=== PATIENT | female | born 1955 | race Caucasian/White ===

== ENCOUNTER 2016-08-22 03:14 | Emergency (ER) | payer OTHER ==
[~2016-08-22 03:14] MED LIST: AFRI0.052; ALDA25TA2 PO; ALEV220C2 PO; AMIT50TA PO; ASPI1TAB PO; BENZ100C5 PO; CALC1TAB17 PO; CALCTAB41 PO; CALCTAB68 PO; CARV3.12 PO; DEPA500T2 PO; DOXY100C PO; DRIS50002 PO; FERR325T PO; FURO20TA2 PO; FURO40TA2 PO; INSUH10VL SC; INSULANT SC; IRON18TA PO; K-TA1TAB PO; LASI20TA PO; LEXA1TAB2 PO; LIDO1OIN2 TOP; MECL-68 PO; NADO20TA PO; NADO40TA PO; NEXI40CA PO; OXYC-517 PO; PERC5TAB6 PO; PERCOCET PO; POTA10CA PO; SPIR100T PO; SPIR25TA2 PO; TRAZ50TA4 PO; VANC250C2 PO; ZONE100C4 PO; [UNRECOGNIZED DRUG - CODE] AU
[2016-08-22 04:04] LABS: BASO % 0.9 % (0.0-1.0); EOS # 0.1 K/mm3 (0.0-0.50); EOS % 3.4 % (0.0-3.0); LARGE UNSTAINED CELL # 0.1 K/mm3 (0.0-0.4); LYMPH # 0.9 K/mm3 (1.5-4.5); LYMPH % 27.5 % (24.0-44.0); MEAN CORPUSCULAR HEMOGLOBIN 31.9 pg (27.0-33.0); MEAN CORPUSCULAR HGB CONC 33.8 g/dl (32.0-36.5); MEAN CORPUSCULAR VOLUME 94.5 fl (80.0-96.0); MONO # 0.2 K/mm3 (0.0-0.8); NEUTROPHILS # 1.8 K/mm3 (1.8-7.7); NEUTROPHILS % 58.2 % (36.0-66.0); RED CELL DISTRIBUTION WIDTH 14.2 % (11.5-14.5); WHITE BLOOD COUNT 3.1 K/mm3 (4.0-10.0)
[2016-08-22 04:17] LABS: ANION GAP 12 MEQ/L (8-16); BLOOD UREA NITROGEN 8 MG/DL (7-18); CALCIUM LEVEL 8.3 MG/DL (8.8-10.2); CARBON DIOXIDE LEVEL 29 MEQ/L (21-32); CHLORIDE LEVEL 105 MEQ/L (98-107); CREATININE FOR GFR 0.94 MG/DL (0.55-1.02); GLOMERULAR FILTRATION RATE > 60.0 (>45); GLUCOSE, FASTING 244 MG/DL (80-110); POTASSIUM SERUM 3.4 MEQ/L (3.5-5.1); SODIUM LEVEL 146 MEQ/L (136-145)
[2016-08-22 04:23] LABS: VENOUS O2 SATURATION 97.2 % (60.0-80.0); VENOUS PARTIAL PRESSURE O2 87.7 mmHg (30.0-50.0); VENOUS STANDARD HCO3 29.9 MEQ/L; VENOUS TOTAL CO2 30.2 MEQ/L (24.0-28.0)
[2016-08-22 04:38] LABS: PLATELET COUNT, AUTOMATED 61 k/mm3 (150-450)
[2016-08-22 04:53] LABS: INR 1.2
[2016-08-22 05:01] LABS: ALBUMIN 3.2 GM/DL (3.2-5.2); ALBUMIN/GLOBULIN RATIO 0.78 (1.00-1.93); ALKALINE PHOSPHATASE 209 U/L (45-117); ALT/SGPT 31 U/L (12-78); AST/SGOT 42 U/L (15-37); BILIRUBIN,DIRECT 0.1 MG/DL (0.0-0.2); BILIRUBIN,TOTAL 0.5 MG/DL (0.2-1.0); TOTAL PROTEIN 7.3 GM/DL (6.4-8.2)
[2016-08-22] MEDS ORDERED: ISOVUE-370 76% 100ML VIAL (Q9967) As Ordered ONE (05:04)
--- NOTE | 2016-08-22 06:10 | REPUSA ---
CLINICAL HISTORY: Dyspnea, exclude PE. TECHNIQUE: Multiple incremental axial, coronal and oblique images are obtained from the thoracic inle t to the upper abdomen. Intravenous contrast material was administered as per pulmonary embolism prot ocol. COMMENTS: Moderate size right pleural effusion. Passive atelectatic airspace disease of the right lower lobe. M ild cardiomegaly. There is excellent opacification of pulmonary arterial system without evidence for pulmonary embolism . Aorta is of normal caliber without evidence for dissection or aneurysm. There is no evidence of hilar or mediastinal lymphadenopathy. Images of the upper abdomen demonstrate no evidence of adrenal mass. The bony structures are free of lytic or blastic lesions. IMPRESSION: No evidence for pulmonary embolism. Moderate right pleural effusion. Passive atelectatic airspace disease of the right lower lobe. Mild mediastinal shift to the left side. Thank you for your kind referral of this patient.
--- NOTE | 2016-08-22 06:30 | REPUSA ---
CLINICAL HISTORY: Abdominal pain. TECHNIQUE: Multiple axial, sagittal and coronal CT images were obtained through the abdomen and pelvi s after administration of intravenous contrast material. COMMENTS: There is diffuse irregular hepatic contour. Mild splenomegaly. There is no intra or extrahepatic biliary ductal dilatation. The gallbladder contains multiple gallstones. The pancreas is of normal contour and attenuation chayo cteristics. There is no evidence of adrenal mass. Both kidneys demonstrate prompt and equal nephrograms. The kidneys are normal in size, shape and conf iguration. There is no evidence of renal or ureteral mass. No renal or ureteral calculi are identifie d. There is no hydroureter or hydronephrosis. No evidence for appendicitis. No evidence for small or large bowel obstruction. Diffuse thickening of the stomach and the duodenum. Mildly fluid-filled small bowels. There is no evidence of intrinsic or extrinsic bladder mass. Moderate large fecal stasis. Uncomplicat ed clonic diverticulosis. Central mesenteric panniculitis. The bony structures are free of lytic or blastic lesions. Multilevel degenerative changes are seen in volving the thoracolumbar spine. Scattered calcifications are seen involving the aorta and major bran ches compatible with atherosclerosis. IMPRESSION: Parenchymal liver disease. Portal hypertension. Ascites. Central mesenteric panniculitis. Gastroduodenitis. Constipation. Cholelithiasis. Thickened gallbladder. This can be secondary to inflammatory pathology, ascites or parenchymal liver disease. Mildly thickened bladder. Thank you for your kind referral of this patient.
[2016-08-22] MEDS ORDERED: AMMONIA AROMATIC INHALANT (FLOOR STOCK) As Ordered ONE (07:28)
--- NOTE | 2016-08-22 08:06 | REP ---
AP portable sitting chest radiograph 08/22/2016 Indication: Shortness of breath Comparison: AP supine chest with bilateral rib series 07/08/2016, CTA chest also performed 08/22/2016 Findings: The cardiomediastinal silhouette is within normal limits. There is a [id number] right pleural effusion with right basilar parenchymal disease compatible with compressive atelectasis. Mild atelectatic changes are seen in the left base. The bones and soft tissues are grossly normal. Impression: Moderate to large right pleural effusion with moderate right lower lobe compressive atelectasis. Mild left basilar atelectatic changes . Signed by Tena Sosa MD 08/22/2016 07:57 A
--- NOTE | 2016-08-22 08:25 | EDDOCDS ---
Nurse's Notes [facility] Name: Olga Palma Age: 60 yrs Sex: Female : 1955 Arrival Date: 08/22/2016 Time: 03:14 Bed 3 Private MD: Suzy Cesar M. Diagnosis: Pleural effusion in other conditions classified elsewhere;Ascites Presentation: 08/22 03:18 Presenting complaint: EMS states: pt feeling SOB since noon 08/21/16. hx of pleural mlc effusion. EMS states pt was having "syncopal" episodes x2. SPO2 was 94% on RA. FS was 261. Adult Sepsis Screening: The patient does not have new or worsening altered mentation. Patient's respiratory rate is less than 22. Systolic blood pressure is greater than 100. Patient has a qSOFA score of 0- Negative Sepsis Screen. Status: Patient is not a equipment services associate or dependent. Transition of care: patient was not received from another setting of care. 03:18 Acuity: CIARA Level 3 [facility] 03:18 Method Of Arrival: Ambulance [facility] 03:18 Suicide/Homicide risk assessment- the patient denies having any suicidal and/or mlc homicidal ideations and does not present with any other emotional, behavioral or mental health complaints. Triage Assessment: 03:30 General: Appears in no apparent distress, comfortable, pt joking with staff, does not mlc appear to be distressed . Behavior is cooperative. Pain: Location: xyphoid area and mid-sternal area Pain At worst was 5 out of 10 on a pain scale. HIV screening NA for this visit Offered previously. The patient is triaged at the bedside. See Assessment in Nurses Notes section of ED record. Neurological: Level of Consciousness is awake, alert, obeys commands, Oriented to person, place, time. Cardiovascular: Rhythm is regular. Respiratory: Onset: The symptoms/episode began/occurred yesterday, Airway is patent Respiratory effort is even, unlabored, Respiratory pattern is regular. Derm: Skin is normal. Historical: - Allergies: Atacand (chest pain); candesartan; Hydrochlorothiazide (chest pain); - Home Meds: 1. aspirin 81 mg Oral chew 1 tab once daily 2. Calcium+D 500 mg(1,250mg) -200 unit oral tab twice a day 3. Lexapro 20 mg Oral tab 1 tab once daily 4. Novolog 100 unit/mL Sub-Q soln sliding scale 5. Lantus 100 unit/mL Sub-Q soln 64 unit twice a day 6. Iron CR 90mg Oral twice a day 7. spironolactone 25 mg Oral tab 1 tab 2 times per day 8. trazodone 50 mg Oral tab 1 tab nightly 9. Nexium 40 mg Oral cpDR 1 cap once daily 10. meclizine 25 mg Oral tab 1 tab 2 times per day 11. furosemide 40 mg Oral tab 1 tab 2 times per day - PMHx: Anxiety; Ascites; Cirrhosis; Diabetes - IDDM: controlled; GERD; Hypercholesterolemia; Hypertension; Pancreatitis; Vertigo; - PSHx: Hysterectomy; D & C; right knee surgery; left shoulder surgery; left elbow surgery; Hernia repair; Appendectomy; right shoulder; - Social history: Smoking status: Patient states was never smoker of tobacco. No barriers to communication noted, The patient speaks fluent Somali. - Family history: Not pertinent, No immediate family members are acutely ill. - : The pt / caregiver states he / she is not on anticoagulants. Home medication list is obtained from the patient, [employer] import data. - Exposure Risk Screening:: None identified. Screenin:32 Screening information is obtained from the patient. Fall risk: At risk due to SOB. mlc Assistance ADL's: requires no assistance with activities of daily living. Abuse/DV Screen: The patient / caregiver reports he/she is: not in a situation that causes fear, pain or injury. Nutritional screening: On diabetic diet. Advance Directives: Currently, there is no health care proxy. There is no active DNR order. There is no living will. There is no Power of Anthropology Lecturer. home support is adequate. Assessment: 03:50 General: Appears in no apparent distress, comfortable, Behavior is cooperative. mlc Neurological: Level of Consciousness is awake, alert, Oriented to person, place, time. Cardiovascular: Capillary refill < 3 seconds Heart tones S1 S2 present Rhythm is regular. Cardiovascular: Chest pain is located in substernal area radiates Does not radiate. is aggravated by breathing. Respiratory: Airway is patent Respiratory effort is even, unlabored, Respiratory pattern is regular, Breath sounds with crackles in right posterior lower lobe. GI: Abdomen is distended, Bowel sounds present X 4 quads. firm x4 quad. Derm: Skin is normal. 05:22 Reassessment: Patient appears in no apparent distress at this time. pt taken to and mlc returned from CT, tolerated well. pt SOB after moving from CT table. pt able to breath better after resting, SPO2 96% on 2L NC. 06:30 General: Appears in no apparent distress, comfortable. General: pt resting comfortably mlc on stretcher, awaiting Dr. Tom. Neurological: Level of Consciousness is awake, alert, Oriented to person, place, time. Respiratory: Airway is patent Respiratory effort is even, unlabored, Respiratory pattern is regular. 07:00 General: Dr. Tom at bedside. Pt sitting on side of bed with feet dangling, pt leaning mlc onto bedside table. . 07:07 General: Lidocaine administered by Dr. Tom, pt reports feeling like the room is mlc spinning, pt leaning to one side. pt closed eyes and leaning to left side. Dr. Tom unable to perform procedure. Vitals stable, resp easy/unlabored, SPO2 maintained. . 07:10 General: Pt aroused to minimal tactile stimulation. Pt resting on stretcher at this mlc time, vitals stable. Resp easy/unlabored. . 07:43 General: Appears presently resting quietly. no observed resp distress. conversing [facility] lengthy sentences without resp interruption. awaiting transportation from [facility].. 08:22 General: Appears continues to present without resp distress. [facility] Vital Signs: 03:28 BP 146 / 70; Pulse 90; Resp 20; Temp 97.4(O); Pulse Ox 95% on R/A; Weight 110.22 kg jmv (R); Height 5 ft. 1 in. (154.94 cm) (R); Pain 4/10; 03:36 Pulse 90 MON; Pulse Ox 57% ; mlc 03:36 BP 122 / 56 (auto/); mlc 03:51 Pulse 84 MON; Pulse Ox 94% ; mlc 03:51 BP 113 / 57 (auto/); mlc 04:06 Pulse 80 MON; Pulse Ox 94% ; mlc 04:06 BP 119 / 56 (auto/); mlc 04:21 BP 127 / 62 (auto/); mlc 04:21 Pulse 80 MON; mlc 04:36 BP 137 / 57 (auto/); mlc 04:36 Pulse 82 MON; Pulse Ox 96% ; mlc 04:51 Pulse 78 MON; Pulse Ox 96% ; mlc 04:51 BP 120 / 60 (auto/); mlc 05:06 BP 120 / 57 (auto/); mlc 05:06 Pulse 80 MON; mlc 05:21 BP 115 / 53 (auto/); mlc 05:21 Pulse 76 MON; Pulse Ox 99% ; mlc 05:36 BP 114 / 54 (auto/); mlc 05:36 Pulse 78 MON; Pulse Ox 97% ; 05:51 BP 113 / 58 (auto/); aug 18:51 Pulse 80 MON; Pulse Ox 96% ; aug 06:07 BP 102 / 58 (auto/); mlc 06:08 Temp 97.7(O); mlc 06:10 Pulse 79 MON; Pulse Ox 96% ; mlc 06:15 BP 106 / 53 (auto/); mlc 06:15 Pulse 79 MON; Pulse Ox 96% ; mlc 06:22 Pulse 79 MON; Pulse Ox 96% ; mlc 06:30 Pulse 81 MON; Pulse Ox 96% ; mlc 06:30 BP 110 / 56 (auto/); mlc 06:45 Pulse 80 MON; Pulse Ox 95% ; mlc 06:45 BP 127 / 56 (auto/); mlc 07:00 Pulse 82 MON; Pulse Ox 96% ; mlc 07:00 BP 123 / 58 (auto/); mlc 07:08 Pulse 83 MON; Pulse Ox 96% ; mlc 07:08 BP 113 / 55 (auto/); mlc 07:13 Pulse 74 MON; mlc 07:13 BP 101 / 57 (auto/); mlc 07:15 BP 111 / 77 (auto/); mlc 07:15 Pulse 71 MON; Pulse Ox 94% ; mlc 08:22 BP 123 / 55; Pulse 77; Resp 18; Temp 97.3; Pulse Ox 93% on R/A; k 03:28 Body Mass Index 45.91 (110.22 kg, 154.94 cm) [facility] Vitals: 03:30 Log In Time N/A - ambulance arrival. [facility] ED Course: 03:15 Patient visited by Eleno Wyatt, Police Artist. ml3 03:15 Suzy Cesar is Private Physician. ml3 03:15 Sadaf Butcher,LIDYA is Primary Nurse. ml3 03:15 Patient moved to Waiting ml3 03:15 Patient moved to 10 ml3 03:23 Triage Initiated mlc 03:28 Pt greeted and oriented to ED. Patient advised of names of staff involved in care, jmmarian location of call constantino, wait times and NPO status. Patient has correct armband on for positive identification. Placed in gown. Bed in low position. Call light in reach. Side rails up X2. cardiac monitor technician on. Pulse ox on. NIBP on. 03:29 Patient visited by Darius Cates PCA. jmv 03:36 The patient / caregiver is instructed regarding the plan of care and ED course. mlc 03:37 Claudio Carrillo DO is Attending Physician. mm11 03:37 Patient visited by Claudio Carrillo DO. mm11 03:50 Inserted saline lock: 20 gauge in left antecubital area and blood collected. The [facility] patient tolerated the procedure well. 03:53 Patient visited by Sadaf Butcher RN. mlc 03:56 Patient visited by Caludio Carrillo DO. mm11 04:06 Patient visited by Leona Santizo PCA. tip 04:06 EKG done. (by ED staff). Reviewed by Claudio Carrillo DO. tip 04:21 Venous Blood Gas (large pea green tube on ice) Sent. mlc 04:21 BLOOD CULTURES Sent. mlc 04:50 LIVER PROFILE Sent. mlc 05:00 Patient name changed from Olga\\S\\G\\S\\Palma\\S\\ to Olga\\S\\Ankita\\S\\Palma. EDMS 05:00 ON LICENSE OF [facility] Payment Agreement was scanned into [employer] and attached to record. slh 05:07 Patient visited by Leona Santizo PCA. tip 05:24 Patient visited by Sadaf Butcher RN. mlc 06:02 Patient visited by Claudio Carrillo DO. mm11 06:04 Patient moved to 3 ml3 06:29 CT Chest Angio R/O PE Returned. EDMS 06:30 No procedures done that require assistance. mlc 06:43 Patient visited by Sadaf Butcher RN. mlc 06:51 CT ABD & PELVIS: IV Contrast Only Returned. EDMS 07:14 Suzy Cesar is Referral Physician. mm11 07:23 Primary Nurse role handed off by Sadaf Butcher RN deg 07:44 Patient visited by Sy Mix RN. jmk 08:15 Chest, 1 View Returned. EDMS 08:22 Discontinued lock intact, bleeding controlled, pressure dressing applied, No jmk redness/swelling at site. Order Results: Lab Order: B-Type Natiuretic Peptide; SPEC'M 08/22/16 03:45 Test: BRAIN NATRIURETIC PEPTIDE; Value: 14.0; Range: <100; Units: PG/ML; Status: F Lab Order: Basic Metabolic Profile; SPEC'M 08/22/16 03:45 Test: GLUCOSE, FASTING; Value: 244; Range: 80-110; Abnormal: Above high normal; Units: MG/DL; Status: F Test: BLOOD UREA NITROGEN; Value: 8; Range: 7-18; Units: MG/DL; Status: F Test: CREATININE FOR GFR; Value: 0.94; Range: 0.55-1.02; Units: MG/DL; Status: F Test: GLOMERULAR FILTRATION RATE; Value: > 60.0; Range: >45; Status: F Test: SODIUM LEVEL; Value: 146; Range: 136-145; Abnormal: Above high normal; Units: MEQ/L; Status: F Test: POTASSIUM SERUM; Value: 3.4; Range: 3.5-5.1; Abnormal: Below low normal; Units: MEQ/L; Status: F Test: CHLORIDE LEVEL; Value: 105; Range: 98-107; Units: MEQ/L; Status: F Test: CARBON DIOXIDE LEVEL; Value: 29; Range: 21-32; Units: MEQ/L; Status: F Test: ANION GAP; Value: 12; Range: 8-16; Units: MEQ/L; Status: F Test: CALCIUM LEVEL; Value: 8.3; Range: 8.8-10.2; Abnormal: Below low normal; Units: MG/DL; Status: F Test Note: ; Units are mL/min/1.73 m2 Chronic Kidney Disease Staging per NKF: Stage I & II GFR >=60 Normal to Mildly Decreased Stage III GFR 30-59 Moderately Decreased Stage IV GFR 15-29 Severely Decreased Stage V GFR <15 Very Little GFR Left ESRD GFR <15 on RETAIL SALES ASSISTANT Lab Order: CBC with Diff; SPEC'M 08/22/16 03:45 Test: WHITE BLOOD COUNT; Value: 3.1; Range: 4.0-10.0; Abnormal: Below low normal; Units: K/mm3; Status: F Test: RED BLOOD COUNT; Value: 4.42; Range: 4.00-5.40; Units: M/mm3; Status: F Test: HEMOGLOBIN; Value: 14.1; Range: 12.0-16.0; Units: g/dl; Status: F Test: HEMATOCRIT; Value: 41.7; Range: 36.0-47.0; Units: %; Status: F Test: MEAN CORPUSCULAR VOLUME; Value: 94.5; Range: 80.0-96.0; Units: fl; Status: F Test: MEAN CORPUSCULAR HEMOGLOBIN; Value: 31.9; Range: 27.0-33.0; Units: pg; Status: F Test: MEAN CORPUSCULAR HGB CONC; Value: 33.8; Range: 32.0-36.5; Units: g/dl; Status: F Test: RED CELL DISTRIBUTION WIDTH; Value: 14.2; Range: 11.5-14.5; Units: %; Status: F Test: PLATELET COUNT, AUTOMATED; Value: 61; Range: 150-450; Abnormal: Below low normal; Units: k/mm3; Status: F Test: NEUTROPHILS %; Value: 58.2; Range: 36.0-66.0; Units: %; Status: F Test: LYMPH %; Value: 27.5; Range: 24.0-44.0; Units: %; Status: F Test: MONO %; Value: 7.0; Range: 0.0-5.0; Abnormal: Above high normal; Units: %; Status: F Test: EOS %; Value: 3.4; Range: 0.0-3.0; Abnormal: Above high normal; Units: %; Status: F Test: BASO %; Value: 0.9; Range: 0.0-1.0; Units: %; Status: F Test: LARGE UNSTAINED CELL %; Value: 3.0; Range: 0.0-4.0; Units: %; Status: F Test: NEUTROPHILS #; Value: 1.8; Range: 1.8-7.7; Units: K/mm3; Status: F Test: LYMPH #; Value: 0.9; Range: 1.5-4.5; Abnormal: Below low normal; Units: K/mm3; Status: F Test: MONO #; Value: 0.2; Range: 0.0-0.8; Units: K/mm3; Status: F Test: EOS #; Value: 0.1; Range: 0.0-0.50; Units: K/mm3; Status: F Test: BASO #; Value: 0.0; Range: 0.0-0.2; Units: K/mm3; Status: F Test: LARGE UNSTAINED CELL #; Value: 0.1; Range: 0.0-0.4; Units: K/mm3; Status: F Lab Order: Cardiac Injury Profile; [facility]08/22/16 03:45 Test: CPK CREATINE PHOSPHOKINASE; Value: 81; Range: 26-192; Units: U/L; Status: F Test: CK-MB VALUE MASS; Value: 1.0; Range: 0.0-3.6; Units: NG/ML; Status: F Test: MB/CK RELATIVE INDEX; Value: 1.23; Range: < OR =4; Status: F Test Note: ; DIAGNOSIS CRITERIA MMB ng/ml Relative Index (RI) NON-AMI < or = 5 N/A RINCON ZONE > 5 < or = 4 AMI > 5 > 4 Lab Order: Troponin; 08/22/16 03:45 Test: TROPONIN I; Value: < 0.02; Range: < 0.10; Units: NG/ML; Status: F Test Note: ; Troponin I Reference Interval for [employer] LOCI: 99th Percentile= 0.00-0.045 ng/ml Risk Stratification: <= 0.10 ng/ml Decreased Risk for Adverse Clinical Events. 0.10-1.50 ng/ml Increased Risk for Adverse Clinical Events. Evaluation of additional criterion and/or repeat testing in 2-6 hours is suggested to rule out myocardial damage. >= 1.50 ng/ml Indicative of Myocardial Injury. Lab Order: Venous Blood Gas (large pea green tube on ice); [facility]08/22/16 04:09 Test: VENOUS PH; Value: 7.513; Range: 7.330-7.430; Abnormal: Above high normal; Units: UNITS; Status: F Test: VENOUS PARTIAL PRESSURE CO2; Value: 37.0; Range: 38.0-50.0; Abnormal: Below low normal; Units: mmHg; Status: F Test: VENOUS PARTIAL PRESSURE O2; Value: 87.7; Range: 30.0-50.0; Abnormal: Above high normal; Units: mmHg; Status: F Test: VENOUS TOTAL CO2; Value: 30.2; Range: 24.0-28.0; Abnormal: Above high normal; Units: MEQ/L; Status: F Test: VENOUS HCO3; Value: 29.1; Range: 23.0-27.0; Abnormal: Above high normal; Units: MEQ/L; Status: F Test: VENOUS BASE EXCESS; Value: 6.0; Range: -2.0-2.0; Abnormal: Above high normal; Status: F Test: VENOUS STANDARD HCO3; Value: 29.9; Units: MEQ/L; Status: F Test: VENOUS O2 SATURATION; Value: 97.2; Range: 60.0-80.0; Abnormal: Above high normal; Units: %; Status: F Lab Order: Pt & Aptt; [facility]08/22/16 03:44 Test: PROTHROMBIN TIME; Value: 15.3; Range: 12.3-14.5; Abnormal: Above high normal; Units: SECONDS; Status: F Test: INR; Value: 1.20; Status: F Test: PARTIAL THROMBOPLASTIN TIME; Value: 27.6; Range: 26.6-37.1; Units: SECONDS; Status: F Test Note: ; THERAPUTIC HUMAN INR VALUES INDICATIONS NORMAL RANGES PROPHYLAXIS/TREATMENT OF: VENOUS THROMBOSIS 2.0-3.0 PULMONARY EMBOLISM 2.0-3.0 PREVENTION OF SYSTEMIC EMBOLISM FROM: TISSUE HEART VALVES 2.0-3.0 ACUTE MYOCARDIAL INFARCTION 2.0-3.0 VALVULAR HEART DISEASE 2.0-3.0 ATRIAL FIBRILLATION 2.0-3.0 MECHANICAL VALVES(HIGH RISK) 2.5-3.5 RECURRENT MYOCARDIAL INFARCTION 2.5-3.5 Lab Order: LIVER PROFILE; SPEC'08/22/16 03:45 Test: AST/SGOT; Value: 42; Range: 15-37; Abnormal: Above high normal; Units: U/L; Status: F Test: ALT/SGPT; Value: 31; Range: 12-78; Units: U/L; Status: F Test: ALKALINE PHOSPHATASE; Value: 209; Range: 45-117; Abnormal: Above high normal; Units: U/L; Status: F Test: BILIRUBIN,TOTAL; Value: 0.5; Range: 0.2-1.0; Units: MG/DL; Status: F Test: BILIRUBIN,DIRECT; Value: 0.1; Range: 0.0-0.2; Units: MG/DL; Status: F Test: TOTAL PROTEIN; Value: 7.3; Range: 6.4-8.2; Units: GM/DL; Status: F Test: ALBUMIN; Value: 3.2; Range: 3.2-5.2; Units: GM/DL; Status: F Test: ALBUMIN/GLOBULIN RATIO; Value: 0.78; Range: 1.00-1.93; Abnormal: Below low normal; Status: F Radiology Order: Chest, 1 View Test: Chest, 1 View REASON FOR EXAMINATION: Shortness of Breath; AP portable sitting chest radiograph 08/22/2016; ; Indication: Shortness of breath; ; Comparison: AP supine chest with bilateral rib series 07/08/2016, CTA chest also; performed 08/22/2016; ; Findings: The cardiomediastinal silhouette is within normal limits. There is a; [id number] right pleural effusion with right basilar parenchymal disease; compatible with compressive atelectasis. Mild atelectatic changes are seen in; the left base. The bones and soft tissues are grossly normal.; ; Impression:; ; Moderate to large right pleural effusion with moderate right lower lobe; compressive atelectasis. Mild left basilar atelectatic changes .; ; ; ; ; ; ; Signed by; Tena Sosa MD 08/22/2016 07:57 A; Radiology Order: CT Chest Angio R/O PE Test: CT Chest Angio R/O PE REASON FOR EXAMINATION: Shortness of Breath; ; CLINICAL HISTORY: Dyspnea, exclude PE.; TECHNIQUE: Multiple incremental axial, coronal and oblique images are obtained from the thoracic inle; t to the upper abdomen. Intravenous contrast material was administered as per pulmonary embolism prot; ocol.; COMMENTS:; Moderate size right pleural effusion. Passive atelectatic airspace disease of the right lower lobe. M; ild cardiomegaly.; There is excellent opacification of pulmonary arterial system without evidence for pulmonary embolism; . Aorta is of normal caliber without evidence for dissection or aneurysm.; There is no evidence of hilar or mediastinal lymphadenopathy.; Images of the upper abdomen demonstrate no evidence of adrenal mass.; The bony structures are free of lytic or blastic lesions.; IMPRESSION:; No evidence for pulmonary embolism.; Moderate right pleural effusion.; Passive atelectatic airspace disease of the right lower lobe.; Mild mediastinal shift to the left side.; Thank you for your kind referral of this patient.; ; Radiology Order: CT ABD & PELVIS: IV Contrast Only Test: CT ABD & PELVIS: IV Contrast Only REASON FOR EXAMINATION: ASCITES; ; CLINICAL HISTORY: Abdominal pain.; TECHNIQUE: Multiple axial, sagittal and coronal CT images were obtained through the abdomen and pelvi; s after administration of intravenous contrast material.; COMMENTS:; There is diffuse irregular hepatic contour.; Mild splenomegaly. There is no intra or extrahepatic biliary ductal dilatation.; The gallbladder contains multiple gallstones. The pancreas is of normal contour and attenuation chayo; cteristics. There is no evidence of adrenal mass.; Both kidneys demonstrate prompt and equal nephrograms. The kidneys are normal in size, shape and conf; iguration. There is no evidence of renal or ureteral mass. No renal or ureteral calculi are identifie; d. There is no hydroureter or hydronephrosis.; No evidence for appendicitis. No evidence for small or large bowel obstruction. Diffuse thickening; of the stomach and the duodenum. Mildly fluid-filled small bowels.; There is no evidence of intrinsic or extrinsic bladder mass. Moderate large fecal stasis. Uncomplicat; ed clonic diverticulosis. Central mesenteric panniculitis.; The bony structures are free of lytic or blastic lesions. Multilevel degenerative changes are seen in; volving the thoracolumbar spine. Scattered calcifications are seen involving the aorta and major bran; ches compatible with atherosclerosis.; IMPRESSION:; Parenchymal liver disease.; Portal hypertension.; Ascites.; Central mesenteric panniculitis.; Gastroduodenitis.; Constipation.; Cholelithiasis.; Thickened gallbladder. This can be secondary to inflammatory pathology, ascites or parenchymal liver; disease.; Mildly thickened bladder.; Thank you for your kind referral of this patient.; ; Outcome: 05:24 CT Study completed. [facility] 07:15 Discharge ordered by Provider. 11 08:22 Discharge Assessment: Patient awake, alert and oriented x 3. No cognitive and/or jmk functional deficits noted. Patient verbalized understanding of disposition instructions. patient administered narcotics - no. The following High Risk Discharge criteria are identified: None. Discharged to home ambulatory. Condition: good. Discharge instructions given to patient, Instructed on discharge instructions, follow up and referral plans. medication usage, Demonstrated understanding of instructions, medications, Pt was receptive of discharge instructions/ teaching. Property :Personal belongings accompany Pt. 08:24 Patient left the ED. nicolas Signatures: Dispatcher [employer] EDMS Sherrill Willard, Police Artist Unit deg Sy Mix,RN Kathleen Bello RN Eleno James, Police Artist Unit ml3 Claudio Carrillo, DO mm11 Leona Santizo, CHARTER AND TOUR BUS DRIVER CHARTER AND TOUR BUS DRIVER Sadaf Em,Adry Silverio RN, Jose, CHARTER AND TOUR BUS DRIVER CHARTER AND TOUR BUS DRIVER jmv Corrections: (The following items were deleted from the chart) 04:50 04:49 LIVER PROFILE+LAB sent. [facility] EDMS [id number]
--- NOTE | 2016-08-22 08:25 | EDDOCDS ---
Physician Documentation [facility] Name: Olga Palma Age: 60 yrs Sex: Female : 1955 Arrival Date: 08/22/2016 Time: 03:14 Bed 3 Private MD: Suzy Fletcher M. Disposition: 08/22/16 07:15 Discharged to Home/Self Care. Impression: Pleural effusion in other conditions classified elsewhere, Ascites. - Condition is Stable. - Discharge Instructions: Pleural Effusion, Thoracentesis. - Medication Reconciliation, Local Pharmacy Hours form. - Follow up: Suzy Fletcher; When: 1 - 2 days; Reason: Continuance of care. - Problem is an acute exacerbation. - Symptoms have improved. - Notes: YOUR CT SCAN SHOWS YOU HAVE A MODERATE PLEURAL EFFUSION. DR. OLSON ATTEMPTED TO DRAIN OF SOME OF THE FLUID FOR YOUR COMFORT BUT WAS UNABLE TO. YOUR OXYGENATION IS APPROPRIATE. FOLLOW UP WITH DR. FLETCHER FOR FURTHER MANAGEMENT OF YOUR DIURETICS PER PULMONOLGY. I HAVE SPOKE WITH DR. SINGH IN REGARDS TO YOUR CASE AND THE OFFICE WILL BE EXPECTING YOUR CALL. Historical: - Allergies: Atacand (chest pain); candesartan; Hydrochlorothiazide (chest pain); - Home Meds: 1. aspirin 81 mg Oral chew 1 tab once daily 2. Calcium+D 500 mg(1,250mg) -200 unit oral tab twice a day 3. Lexapro 20 mg Oral tab 1 tab once daily 4. Novolog 100 unit/mL Sub-Q soln sliding scale 5. Lantus 100 unit/mL Sub-Q soln 64 unit twice a day 6. Iron CR 90mg Oral twice a day 7. spironolactone 25 mg Oral tab 1 tab 2 times per day 8. trazodone 50 mg Oral tab 1 tab nightly 9. Nexium 40 mg Oral cpDR 1 cap once daily 10. meclizine 25 mg Oral tab 1 tab 2 times per day 11. furosemide 40 mg Oral tab 1 tab 2 times per day - PMHx: Anxiety; Ascites; Cirrhosis; Diabetes - IDDM: controlled; GERD; Hypercholesterolemia; Hypertension; Pancreatitis; Vertigo; - PSHx: Hysterectomy; D & C; right knee surgery; left shoulder surgery; left elbow surgery; Hernia repair; Appendectomy; right shoulder; - Social history: Smoking status: Patient states was never smoker of tobacco. No barriers to communication noted, The patient speaks fluent Somali. - Family history: Not pertinent, No immediate family members are acutely ill. - : The pt / caregiver states he / she is not on anticoagulants. Home medication list is obtained from the patient, [employer] import data. - Exposure Risk Screening:: None identified. Vital Signs: 08/22 03:28 BP 146 / 70; Pulse 90; Resp 20; Temp 97.4(O); Pulse Ox 95% on R/A; Weight 110.22 kg / jmv 242.99 lbs (R); Height 5 ft. 1 in. (154.94 cm) (R); Pain 4/10; 03:36 Pulse 90 MON; Pulse Ox 57% ; mlc 03:36 BP 122 / 56 (auto/); mlc 03:51 Pulse 84 MON; Pulse Ox 94% ; mlc 03:51 BP 113 / 57 (auto/); mlc 04:06 Pulse 80 MON; Pulse Ox 94% ; mlc 04:06 BP 119 / 56 (auto/); mlc 04:21 BP 127 / 62 (auto/); mlc 04:21 Pulse 80 MON; mlc 04:36 BP 137 / 57 (auto/); mlc 04:36 Pulse 82 MON; Pulse Ox 96% ; mlc 04:51 Pulse 78 MON; Pulse Ox 96% ; mlc 04:51 BP 120 / 60 (auto/); mlc 05:06 BP 120 / 57 (auto/); mlc 05:06 Pulse 80 MON; mlc 05:21 BP 115 / 53 (auto/); mlc 05:21 Pulse 76 MON; Pulse Ox 99% ; mlc 05:36 BP 114 / 54 (auto/); mlc 05:36 Pulse 78 MON; Pulse Ox 97% ; mlc 05:51 BP 113 / 58 (auto/); aug 05:51 Pulse 80 MON; Pulse Ox 96% ; aug 06:07 BP 102 / 58 (auto/); mlc 06:08 Temp 97.7(O); mlc 06:10 Pulse 79 MON; Pulse Ox 96% ; mlc 06:15 BP 106 / 53 (auto/); mlc 06:15 Pulse 79 MON; Pulse Ox 96% ; mlc 06:22 Pulse 79 MON; Pulse Ox 96% ; mlc 06:30 Pulse 81 MON; Pulse Ox 96% ; mlc 06:30 BP 110 / 56 (auto/); mlc 06:45 Pulse 80 MON; Pulse Ox 95% ; mlc 06:45 BP 127 / 56 (auto/); mlc 07:00 Pulse 82 MON; Pulse Ox 96% ; mlc 07:00 BP 123 / 58 (auto/); mlc 07:08 Pulse 83 MON; Pulse Ox 96% ; mlc 07:08 BP 113 / 55 (auto/); mlc 07:13 Pulse 74 MON; mlc 07:13 BP 101 / 57 (auto/); mlc 07:15 BP 111 / 77 (auto/); mlc 07:15 Pulse 71 MON; Pulse Ox 94% ; mlc 08:22 BP 123 / 55; Pulse 77; Resp 18; Temp 97.3; Pulse Ox 93% on R/A; [facility] 03:28 Body Mass Index 45.91 (110.22 kg, 154.94 cm) [facility] MDM: 03:57 -Blood Culture (Adults Only), peripheral from different site, or from device/port/PICC mm11 etc. if present ordered. 03:57 Microfilm Operator/Pulse Ox/q 15 min VS ordered. mm11 03:57 IV Saline Lock ordered. mm11 03:57 Oxygen at 4L/Min NC or Home dosage ordered. mm11 03:57 Rhythm Strip to chart ordered. mm11 03:57 B-Type Natiuretic Peptide Ordered. EDMS 03:57 Basic Metabolic Profile Ordered. EDMS 03:57 CBC with Diff Ordered. EDMS 03:57 Cardiac Injury Profile Ordered. EDMS 03:57 Troponin Ordered. EDMS 03:57 -Blood Culture Ordered. EDMS 03:58 Chest, 1 View Ordered. EDMS 03:58 ECG WITH READING ER PHYS+CARDIAG ordered. EDMS 03:58 Venous Blood Gas (large pea green tube on ice) Ordered. EDMS 03:59 -Blood Culture (Adults Only), peripheral from different site, or from device/port/PICC ml3 etc. if present complete. 04:00 BLOOD CULTURES Ordered. EDMS 04:39 Basic Metabolic Profile Reviewed. mm11 04:39 Venous Blood Gas (large pea green tube on ice) Reviewed. mm11 04:39 B-Type Natiuretic Peptide Reviewed. mm11 04:39 Cardiac Injury Profile Reviewed. mm11 04:39 Troponin Reviewed. mm11 04:41 CT Chest Angio R/O PE Ordered. EDMS 04:41 CT ABD & PELVIS: IV Contrast Only Ordered. EDMS 04:42 CBC with Diff Reviewed. mm11 04:47 Pt & Aptt Ordered. EDMS 04:48 Financial registration complete. [facility] 04:50 LIVER PROFILE Ordered. EDMS 05:00 [facility] Payment Agreement was scanned into [employer] and attached to record. [facility] 05:39 Basic Metabolic Profile Reviewed. mm11 05:39 Pt & Aptt Reviewed. mm11 05:39 LIVER PROFILE Reviewed. mm11 05:39 Cardiac Injury Profile Reviewed. mm11 05:39 Troponin Reviewed. mm11 Signatures: Dispatcher [employer] EDSD Sy Mix,RN RN Eleno Aguila, [employer] [place] Unit ml3 Claudio Carrillo, DO mm11 Sadaf Butcher,Adry Silverio RN [facility] The chart was reviewed and I authenticate all verbal orders and agree with the evaluation and treatment provided.Corrections: (The following items were deleted from the chart) 04:50 04:47 LIVER PROFILE+LAB ordered. EDSD EDMS Attachments: 05:00 [facility] Payment Agreement [facility] MTDD
--- NOTE | 2016-08-22 08:28 | CR ---
DATE OF CONSULTATION: 08/22/2016 REASON FOR CONSULTATION: Right pleural effusion. HISTORY OF PRESENT ILLNESS: Olga is a 60-year-old female with known cirrhosis. It is listed in her medical chart as alcoholic cirrhosis however, the patient states she is not a drinker and suspicious for underlying non alcoholic steatohepatitis. She has a history of recurrent pleural effusions secondary to ascites. She is a very poor historian and states she is unable to give me much information. She states she did go to [place] for a transplant evaluation but she had no idea why she has cirrhosis. She presented to the emergency room today with shortness of breath. She has no evidence of hypoxia. She is laying in supine in bed without obvious dyspnea. No orthopnea. She states she had taken her diuretic therapy at home. She has had no fever or chills. She denies any pain discomfort other than pain to palpation along the rib cage. She states she previously had a chest tube placed that got infected. At this point in time she denies any night sweats or weight loss. PAST MEDICAL HISTORY: 1. 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 INR is only 1.2 today. 2. Hyperlipidemia. 3. History of recurring questionable syncope. 4. Depression. 5. Migraine headaches. 6. History of Clostridium (C.) difficile colitis. 7. Type 2 diabetes. 8. Vertigo. 9. Gastroesophageal reflux. 10. Hypertension. 11. Obstructive sleep apnea. HOME MEDICATIONS: - Lasix 40 mg by mouth twice a day - Depakote extended release 500 mg by mouth twice a day - zonisamide 100 mg by mouth twice a day - aspirin 81 mg by mouth daily - calcium with vitamin D one tablet by mouth twice a day - Lexapro 20 mg by mouth daily - Nexium 40 mg by mouth daily - Lasix 60 mg by mouth twice a day - sliding scale insulin - Lantus insulin 64 mg subcutaneous twice a day - iron 90 mg by mouth daily - meclizine 25 mg by mouth twice a day - spironolactone 25 mg by mouth twice a day - trazodone 40 mg by mouth at bedtime - vitamin D 50,000 units by mouth every two weeks ALLERGIES: CANDESARTAN and HYDROCHLOROTHIAZIDE, unknown reactions. SOCIAL HISTORY: The patient states she is able to sit for long periods of time, has no difficulty at home. She states she is a nonsmoker and nondrinker. She does not work. FAMILY HISTORY: She states her father was a drinker and had alcoholic cirrhosis. REVIEW OF SYSTEMS: Mostly unobtainable due to patient's ability to cooperative. She states often that she does not know the answer. As far as constitutional she does state that she has no night sweats, fever or chills. GENITOURINARY (): No burning or pain on urination. GASTROINTESTINAL: No diarrhea, blood in stool. She denies vomiting. No hematemesis. PULMONARY: No cough. No productive sputum. Denies hemoptysis of. Otherwise I could not obtain answers to the majority of the review of systems. PHYSICAL EXAMINATION: VITAL SIGNS: Blood pressure was 110/70, this did not change despite her feigning a vasovagal event. Systolic blood pressure remained above 100. She had no change in pulse. Pulse rate was 76. There was no change during her feigning a syncopal episode. Respiratory rate was 16, oxygen saturation was 94% on room air. Temperature is 97.2. GENERAL: Patient was laying in the supine position upon my arrival to the emergency room with no distress. HEENT: Sclerae clear and anicteric. Pupils equal, react to light. Mucous membranes are moist without lesions. Tongue is midline. NECK: Neck is supple. No tracheal deviation. The jugular venous pulse (JVP) is difficult to assess due to body habitus. PULMONARY: Decreased breath sounds at the right base otherwise clear to auscultation without rales, rhonchi or wheezes. There is dullness to percussion of the right base one-third. No accessory muscle use. CARDIAC: Distant S1-S2 without audible murmur or gallop. No discernible JVP due to body habitus. No significant lower extremity edema. ABDOMEN: Extremely obese, I believe there is ascites; however, difficult to assess due to the size of the abdomen. No discernible hepatosplenomegaly. Again, difficult to assess due to the abdominal girth. There is normoactive bowel sounds. No masses or hernia. EXTREMITIES: No cyanosis, clubbing or edema. SKIN: Pale without rash, jaundice or bruising. NEUROLOGIC: No unilateral weakness and no tremor. LABORATORY EVALUATION: The patient is hyperventilating on her venous blood gas with a pH of 7.51, pCO2 of 37 and pAO2 of 87. White blood cell count is 3.1 with a platelet count of 61, hemoglobin 14.1, INR 1.2. Sodium is 146, potassium 3.4, chloride 105, bicarbonate 29, BUN of 8 and creatinine of 0.94 with a glucose of 244, albumin is 3.2. Chest x-ray shows a small right pleural effusion. Chest CT confirmed this finding along with ascites. IMPRESSION: Olga is a 60-year-old female with a right-sided pleural effusion. There is no acute indication for hospitalization at this point in time. She does not appear to have infectious symptoms. I believe her effusions is from hepatic hydrothorax and this will be recurrent until the ascites is under control. I did offer her thoracentesis for symptom management. The patient had feigned a fainting spell and therefore the procedure was stopped and no fluid was obtained. Of note during this feigning spell there is no evidence of vasovagal event. There is no change in blood pressure, no change in pulse. The patient was then moving her extremities so that she could lay back down. ASSESSMENT: 1. Right pleural effusion, hepatic hydrothorax. PLAN: Refer to primary care for outpatient management of her ascites and liver disease. Until her ascites is under control she will likely have recurrent pleural effusion. I would not place a chest tube unless it was absolutely necessary due to the complications that can occur with hepatic hydrothorax.
--- NOTE | 2016-08-22 08:40 | RO ---
DATE OF PROCEDURE: 08/22/2016 PROCEDURE: Right ultrasound-guided thoracentesis. PREOPERATIVE DIAGNOSIS: Right pleural effusion. POSTOPERATIVE DIAGNOSIS: Right pleural effusion. PROCEDURALIST: Dr. Juan Tom HIDES SOAKER: None. ANESTHESIA: 1% lidocaine, total of 5 mL DESCRIPTION OF PROCEDURE: Informed consent was obtained from the patient in the emergency room. Risks, including bleeding, pneumothorax, pain, discomfort and infection reviewed in detail. The patient agreed and signed consent with a witness. Time-out was then performed with two patient identifiers, identifying correct site, correct procedure. Right thorax was ultrasounded and the largest fluid collection was marked. Chlorhexidine was used to prep the area. Sterile dressing was placed over the site. As this was being performed, the patient stated the room was spinning. There had been no injections up until that point in time. The patient settled down, blood pressure did not change, therefore 1% lidocaine was instilled subcutaneously. The patient then had said that she was dizzy. I removed the needle. She went from side to side and then eventually slumped to the left. She had no change in blood pressure, pulse and was moving her extremities so that she could get more comfortable in bed. I therefore stopped the procedure. No further attempts were made.
--- NOTE | 2016-08-22 09:29 | ECGEPIP ---
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
--- NOTE | 2016-08-24 09:25 | EDDOCDS ---
Physician Documentation [facility] Name: Olga Palma Age: 60 yrs Sex: Female : 1955 Arrival Date: 08/22/2016 Time: 03:14 Bed 3 Private MD: Ashely Fletcher M. Disposition: 08/22/16 07:15 Discharged to Home/Self Care. Impression: Pleural effusion in other conditions classified elsewhere, Ascites. - Condition is Stable. - Discharge Instructions: Pleural Effusion, Thoracentesis. - Medication Reconciliation, Local Pharmacy Hours form. - Follow up: Ashely Fletcher; When: 1 - 2 days; Reason: Continuance of care. - Problem is an acute exacerbation. - Symptoms have improved. - Notes: YOUR CT SCAN SHOWS YOU HAVE A MODERATE PLEURAL EFFUSION. DR. OLSON ATTEMPTED TO DRAIN OF SOME OF THE FLUID FOR YOUR COMFORT BUT WAS UNABLE TO. YOUR OXYGENATION IS APPROPRIATE. FOLLOW UP WITH DR. FLETCHER FOR FURTHER MANAGEMENT OF YOUR DIURETICS PER PULMONOLGY. I HAVE SPOKE WITH DR. SINGH IN REGARDS TO YOUR CASE AND THE OFFICE WILL BE EXPECTING YOUR CALL. Historical: - Allergies: Atacand (chest pain); candesartan; Hydrochlorothiazide (chest pain); - Home Meds: 1. aspirin 81 mg Oral chew 1 tab once daily 2. Calcium+D 500 mg(1,250mg) -200 unit oral tab twice a day 3. Lexapro 20 mg Oral tab 1 tab once daily 4. Novolog 100 unit/mL Sub-Q soln sliding scale 5. Lantus 100 unit/mL Sub-Q soln 64 unit twice a day 6. Iron CR 90mg Oral twice a day 7. spironolactone 25 mg Oral tab 1 tab 2 times per day 8. trazodone 50 mg Oral tab 1 tab nightly 9. Nexium 40 mg Oral cpDR 1 cap once daily 10. meclizine 25 mg Oral tab 1 tab 2 times per day 11. furosemide 40 mg Oral tab 1 tab 2 times per day - PMHx: Anxiety; Ascites; Cirrhosis; Diabetes - IDDM: controlled; GERD; Hypercholesterolemia; Hypertension; Pancreatitis; Vertigo; - PSHx: Hysterectomy; D & C; right knee surgery; left shoulder surgery; left elbow surgery; Hernia repair; Appendectomy; right shoulder; - Social history: Smoking status: Patient states was never smoker of tobacco. No barriers to communication noted, The patient speaks fluent [place]guillan. - Family history: Not pertinent, No immediate family members are acutely ill. - : The pt / caregiver states he / she is not on anticoagulants. Home medication list is obtained from the patient, [email or web address] import data. - Exposure Risk Screening:: None identified. Vital Signs: 08/22 03:28 BP 146 / 70; Pulse 90; Resp 20; Temp 97.4(O); Pulse Ox 95% on R/A; Weight 110.22 kg / jmv 242.99 lbs (R); Height 5 ft. 1 in. (154.94 cm) (R); Pain 4/10; 03:36 Pulse 90 MON; Pulse Ox 57% ; mlc 03:36 BP 122 / 56 (auto/); mlc 03:51 Pulse 84 MON; Pulse Ox 94% ; mlc 03:51 BP 113 / 57 (auto/); mlc 04:06 Pulse 80 MON; Pulse Ox 94% ; mlc 04:06 BP 119 / 56 (auto/); mlc 04:21 BP 127 / 62 (auto/); mlc 04:21 Pulse 80 MON; mlc 04:36 BP 137 / 57 (auto/); mlc 04:36 Pulse 82 MON; Pulse Ox 96% ; mlc 04:51 Pulse 78 MON; Pulse Ox 96% ; mlc 04:51 BP 120 / 60 (auto/); mlc 05:06 BP 120 / 57 (auto/); mlc 05:06 Pulse 80 MON; mlc 05:21 BP 115 / 53 (auto/); mlc 05:21 Pulse 76 MON; Pulse Ox 99% ; mlc 05:36 BP 114 / 54 (auto/); mlc 05:36 Pulse 78 MON; Pulse Ox 97% ; mlc 05:51 BP 113 / 58 (auto/); aug 05:51 Pulse 80 MON; Pulse Ox 96% ; aug 06:07 BP 102 / 58 (auto/); mlc 06:08 Temp 97.7(O); mlc 06:10 Pulse 79 MON; Pulse Ox 96% ; mlc 06:15 BP 106 / 53 (auto/); mlc 06:15 Pulse 79 MON; Pulse Ox 96% ; mlc 06:22 Pulse 79 MON; Pulse Ox 96% ; mlc 06:30 Pulse 81 MON; Pulse Ox 96% ; mlc 06:30 BP 110 / 56 (auto/); mlc 06:45 Pulse 80 MON; Pulse Ox 95% ; mlc 06:45 BP 127 / 56 (auto/); mlc 07:00 Pulse 82 MON; Pulse Ox 96% ; mlc 07:00 BP 123 / 58 (auto/); mlc 07:08 Pulse 83 MON; Pulse Ox 96% ; mlc 07:08 BP 113 / 55 (auto/); mlc 07:13 Pulse 74 MON; mlc 07:13 BP 101 / 57 (auto/); mlc 07:15 BP 111 / 77 (auto/); mlc 07:15 Pulse 71 MON; Pulse Ox 94% ; mlc 08:22 BP 123 / 55; Pulse 77; Resp 18; Temp 97.3; Pulse Ox 93% on R/A; [facility] 03:28 Body Mass Index 45.91 (110.22 kg, 154.94 cm) [facility] MDM: 03:57 -Blood Culture (Adults Only), peripheral from different site, or from device/port/PICC mm11 etc. if present ordered. 03:57 Harvest Supervisor/Pulse Ox/q 15 min VS ordered. mm11 03:57 IV Saline Lock ordered. mm11 03:57 Oxygen at 4L/Min NC or Home dosage ordered. mm11 03:57 Rhythm Strip to chart ordered. mm11 03:57 B-Type Natiuretic Peptide Ordered. EDMS 03:57 Basic Metabolic Profile Ordered. EDMS 03:57 CBC with Diff Ordered. EDMS 03:57 Cardiac Injury Profile Ordered. EDMS 03:57 Troponin Ordered. EDMS 03:57 -Blood Culture Ordered. EDMS 03:58 Chest, 1 View Ordered. EDMS 03:58 ECG WITH READING ER PHYS+CARDIAG ordered. EDMS 03:58 Venous Blood Gas (large pea green tube on ice) Ordered. EDMS 03:59 -Blood Culture (Adults Only), peripheral from different site, or from device/port/PICC ml3 etc. if present complete. 04:00 BLOOD CULTURES Ordered. EDMS 04:39 Basic Metabolic Profile Reviewed. mm11 04:39 Venous Blood Gas (large pea green tube on ice) Reviewed. mm11 04:39 B-Type Natiuretic Peptide Reviewed. mm11 04:39 Cardiac Injury Profile Reviewed. mm11 04:39 Troponin Reviewed. mm11 04:41 CT Chest Angio R/O PE Ordered. EDMS 04:41 CT ABD & PELVIS: IV Contrast Only Ordered. EDMS 04:42 CBC with Diff Reviewed. mm11 04:47 Pt & Aptt Ordered. EDMS 04:48 Financial registration complete. [facility] 04:50 LIVER PROFILE Ordered. EDMS 05:00 [facility] Payment Agreement was scanned into [employer] and attached to record. [facility] 05:39 Basic Metabolic Profile Reviewed. mm11 05:39 Pt & Aptt Reviewed. mm11 05:39 LIVER PROFILE Reviewed. mm11 05:39 Cardiac Injury Profile Reviewed. mm11 05:39 Troponin Reviewed. [facility] 13:05 T-Sheet-- Draft Copy was scanned into [employer] and attached to record. 08/23 12:00 ECG/EKG was scanned into [employer] and attached to record. 12:01 [place] Protocol was scanned into [employer] and attached to record. 12:01 Consents was scanned into [employer] and attached to record. 12:01 Radiology Report was scanned into [employer] and attached to record. 13:26 ED course: ashely fletcher faxed formal report of cta for fu mlg. ml 13:26 ED course: cxr also faxed to ashely matias. ml 13:27 ED course: also ct abd/p faxed to dr ana maria gomes. ml Signatures: Dispatcher [employer] EDKS Ana Hernandez MD MD ml Knapp, Jean,RN RN Michelle Caldwell, Reg Reg gb Yoselin, TameraYaneth, [employer] Unit ml3 Claudio Carrillo, DO 11 Sadaf Butcher RN RN mlc [place], Sandra [facility] The chart was reviewed and I authenticate all verbal orders and agree with the evaluation and treatment provided.Corrections: (The following items were deleted from the chart) 08/22 04:50 04:47 LIVER PROFILE+LAB ordered. EDKS EDMS Attachments: 05:00 [facility] Payment Agreement [facility] 13:05 T-Sheet-- Draft Copy 08/23 12:00 ECG/EKG gb Chart Complete MTDD
--- NOTE | 2016-08-24 09:25 | EDDOCDS ---
Physician Documentation [facility] Name: Olga Palma Age: 60 yrs Sex: Female : 1955 Arrival Date: 08/22/2016 Time: 03:14 Bed 3 Private MD: Ashely Fletcher M. Disposition: 08/22/16 07:15 Discharged to Home/Self Care. Impression: Pleural effusion in other conditions classified elsewhere, Ascites. - Condition is Stable. - Discharge Instructions: Pleural Effusion, Thoracentesis. - Medication Reconciliation, Local Pharmacy Hours form. - Follow up: Ashely Fletcher; When: 1 - 2 days; Reason: Continuance of care. - Problem is an acute exacerbation. - Symptoms have improved. - Notes: YOUR CT SCAN SHOWS YOU HAVE A MODERATE PLEURAL EFFUSION. DR. OLSON ATTEMPTED TO DRAIN OF SOME OF THE FLUID FOR YOUR COMFORT BUT WAS UNABLE TO. YOUR OXYGENATION IS APPROPRIATE. FOLLOW UP WITH DR. FLETCHER FOR FURTHER MANAGEMENT OF YOUR DIURETICS PER PULMONOLGY. I HAVE SPOKE WITH DR. SINGH IN REGARDS TO YOUR CASE AND THE OFFICE WILL BE EXPECTING YOUR CALL. Historical: - Allergies: Atacand (chest pain); candesartan; Hydrochlorothiazide (chest pain); - Home Meds: 1. aspirin 81 mg Oral chew 1 tab once daily 2. Calcium+D 500 mg(1,250mg) -200 unit oral tab twice a day 3. Lexapro 20 mg Oral tab 1 tab once daily 4. Novolog 100 unit/mL Sub-Q soln sliding scale 5. Lantus 100 unit/mL Sub-Q soln 64 unit twice a day 6. Iron CR 90mg Oral twice a day 7. spironolactone 25 mg Oral tab 1 tab 2 times per day 8. trazodone 50 mg Oral tab 1 tab nightly 9. Nexium 40 mg Oral cpDR 1 cap once daily 10. meclizine 25 mg Oral tab 1 tab 2 times per day 11. furosemide 40 mg Oral tab 1 tab 2 times per day - PMHx: Anxiety; Ascites; Cirrhosis; Diabetes - IDDM: controlled; GERD; Hypercholesterolemia; Hypertension; Pancreatitis; Vertigo; - PSHx: Hysterectomy; D & C; right knee surgery; left shoulder surgery; left elbow surgery; Hernia repair; Appendectomy; right shoulder; - Social history: Smoking status: Patient states was never smoker of tobacco. No barriers to communication noted, The patient speaks fluent Dutch. - Family history: Not pertinent, No immediate family members are acutely ill. - : The pt / caregiver states he / she is not on anticoagulants. Home medication list is obtained from the patient, [employer] import data. - Exposure Risk Screening:: None identified. Vital Signs: 08/22 03:28 BP 146 / 70; Pulse 90; Resp 20; Temp 97.4(O); Pulse Ox 95% on R/A; Weight 110.22 kg / jmv 242.99 lbs (R); Height 5 ft. 1 in. (154.94 cm) (R); Pain 4/10; 03:36 Pulse 90 MON; Pulse Ox 57% ; mlc 03:36 BP 122 / 56 (auto/); mlc 03:51 Pulse 84 MON; Pulse Ox 94% ; mlc 03:51 BP 113 / 57 (auto/); mlc 04:06 Pulse 80 MON; Pulse Ox 94% ; mlc 04:06 BP 119 / 56 (auto/); mlc 04:21 BP 127 / 62 (auto/); mlc 04:21 Pulse 80 MON; mlc 04:36 BP 137 / 57 (auto/); mlc 04:36 Pulse 82 MON; Pulse Ox 96% ; mlc 04:51 Pulse 78 MON; Pulse Ox 96% ; mlc 04:51 BP 120 / 60 (auto/); mlc 05:06 BP 120 / 57 (auto/); mlc 05:06 Pulse 80 MON; mlc 05:21 BP 115 / 53 (auto/); mlc 05:21 Pulse 76 MON; Pulse Ox 99% ; mlc 05:36 BP 114 / 54 (auto/); mlc 05:36 Pulse 78 MON; Pulse Ox 97% ; mlc 05:51 BP 113 / 58 (auto/); aug 05:51 Pulse 80 MON; Pulse Ox 96% ; aug 06:07 BP 102 / 58 (auto/); mlc 06:08 Temp 97.7(O); mlc 06:10 Pulse 79 MON; Pulse Ox 96% ; mlc 06:15 BP 106 / 53 (auto/); mlc 06:15 Pulse 79 MON; Pulse Ox 96% ; mlc 06:22 Pulse 79 MON; Pulse Ox 96% ; mlc 06:30 Pulse 81 MON; Pulse Ox 96% ; mlc 06:30 BP 110 / 56 (auto/); mlc 06:45 Pulse 80 MON; Pulse Ox 95% ; mlc 06:45 BP 127 / 56 (auto/); mlc 07:00 Pulse 82 MON; Pulse Ox 96% ; mlc 07:00 BP 123 / 58 (auto/); mlc 07:08 Pulse 83 MON; Pulse Ox 96% ; mlc 07:08 BP 113 / 55 (auto/); mlc 07:13 Pulse 74 MON; mlc 07:13 BP 101 / 57 (auto/); mlc 07:15 BP 111 / 77 (auto/); mlc 07:15 Pulse 71 MON; Pulse Ox 94% ; mlc 08:22 BP 123 / 55; Pulse 77; Resp 18; Temp 97.3; Pulse Ox 93% on R/A; [facility] 03:28 Body Mass Index 45.91 (110.22 kg, 154.94 cm) [facility] MDM: 03:57 -Blood Culture (Adults Only), peripheral from different site, or from device/port/PICC mm11 etc. if present ordered. 03:57 Optometry Assistant/Pulse Ox/q 15 min VS ordered. mm11 03:57 IV Saline Lock ordered. mm11 03:57 Oxygen at 4L/Min NC or Home dosage ordered. mm11 03:57 Rhythm Strip to chart ordered. mm11 03:57 B-Type Natiuretic Peptide Ordered. EDMS 03:57 Basic Metabolic Profile Ordered. EDMS 03:57 CBC with Diff Ordered. EDMS 03:57 Cardiac Injury Profile Ordered. EDMS 03:57 Troponin Ordered. EDMS 03:57 -Blood Culture Ordered. EDMS 03:58 Chest, 1 View Ordered. EDMS 03:58 ECG WITH READING ER PHYS+CARDIAG ordered. EDMS 03:58 Venous Blood Gas (large pea green tube on ice) Ordered. EDMS 03:59 -Blood Culture (Adults Only), peripheral from different site, or from device/port/PICC ml3 etc. if present complete. 04:00 BLOOD CULTURES Ordered. EDMS 04:39 Basic Metabolic Profile Reviewed. mm11 04:39 Venous Blood Gas (large pea green tube on ice) Reviewed. mm11 04:39 B-Type Natiuretic Peptide Reviewed. mm11 04:39 Cardiac Injury Profile Reviewed. mm11 04:39 Troponin Reviewed. mm11 04:41 CT Chest Angio R/O PE Ordered. EDMS 04:41 CT ABD & PELVIS: IV Contrast Only Ordered. EDMS 04:42 CBC with Diff Reviewed. mm11 04:47 Pt & Aptt Ordered. EDMS 04:48 Financial registration complete. [facility] 04:50 LIVER PROFILE Ordered. EDMS 05:00 [facility] Payment Agreement was scanned into [employer] and attached to record. [facility] 05:39 Basic Metabolic Profile Reviewed. mm11 05:39 Pt & Aptt Reviewed. mm11 05:39 LIVER PROFILE Reviewed. mm11 05:39 Cardiac Injury Profile Reviewed. mm11 05:39 Troponin Reviewed. [facility] 13:05 T-Sheet-- Draft Copy was scanned into [employer] and attached to record. 08/23 12:00 ECG/EKG was scanned into [employer] and attached to record. 12:01 [place] Protocol was scanned into [employer] and attached to record. 12:01 Consents was scanned into [employer] and attached to record. 12:01 Radiology Report was scanned into [employer] and attached to record. 13:26 ED course: ashely fletcher faxed formal report of cta for fu mlg. ml 13:26 ED course: cxr also faxed to ashely matias. ml 13:27 ED course: also ct abd/p faxed to dr ana maria gomes. ml Signatures: Dispatcher [employer] EDWV Ana Hernandez MD MD ml Knapp, Jean,RN RN Michelle Caldwell, Reg Reg gb Yoselin, TameraYaneth, Gear [employer] ml3 Claudio Carrillo, DO 11 Sadaf Butcher RN RN mlc Hook, Sandra [facility] The chart was reviewed and I authenticate all verbal orders and agree with the evaluation and treatment provided.Corrections: (The following items were deleted from the chart) 08/22 04:50 04:47 LIVER PROFILE+LAB ordered. EDWV EDMS Attachments: 05:00 [facility] [place] [facility] 13:05 T-Sheet-- Draft Copy 08/23 12:00 ECG/EKG gb Chart Complete MTDD
--- NOTE | 2016-08-24 09:25 | EDDOCDS ---
Nurse's Notes [facility] Name: Saroj Palma Age: 60 yrs Sex: Female : 1955 Arrival Date: 08/22/2016 Time: 03:14 Bed 3 Private MD: Suzy Cesar M. Diagnosis: Pleural effusion in other conditions classified elsewhere;Ascites Presentation: 08/22 03:18 Presenting complaint: EMS states: pt feeling SOB since noon 08/21/16. hx of pleural mlc effusion. EMS states pt was having "syncopal" episodes x2. SPO2 was 94% on RA. FS was 261. Adult Sepsis Screening: The patient does not have new or worsening altered mentation. Patient's respiratory rate is less than 22. Systolic blood pressure is greater than 100. Patient has a qSOFA score of 0- Negative Sepsis Screen. Status: Patient is not a multicultural services librarian or dependent. Transition of care: patient was not received from another setting of care. 03:18 Acuity: CIARA Level 3 [facility] [place] 03:18 Method Of Arrival: Ambulance [facility] [place] 03:18 Suicide/Homicide risk assessment- the patient denies having any suicidal and/or mlc homicidal ideations and does not present with any other emotional, behavioral or mental health complaints. Triage Assessment: 03:30 General: Appears in no apparent distress, comfortable, pt joking with staff, does not mlc appear to be distressed . Behavior is cooperative. Pain: Location: xyphoid area and mid-sternal area Pain At worst was 5 out of 10 on a pain scale. HIV screening NA for this visit Offered previously. The patient is triaged at the bedside. See Assessment in Nurses Notes section of ED record. Neurological: Level of Consciousness is awake, alert, obeys commands, Oriented to person, place, time. Cardiovascular: Rhythm is regular. Respiratory: Onset: The symptoms/episode began/occurred yesterday, Airway is patent Respiratory effort is even, unlabored, Respiratory pattern is regular. Derm: Skin is normal. Historical: - Allergies: Atacand (chest pain); candesartan; Hydrochlorothiazide (chest pain); - Home Meds: 1. aspirin 81 mg Oral chew 1 tab once daily 2. Calcium+D 500 mg(1,250mg) -200 unit oral tab twice a day 3. Lexapro 20 mg Oral tab 1 tab once daily 4. Novolog 100 unit/mL Sub-Q soln sliding scale 5. Lantus 100 unit/mL Sub-Q soln 64 unit twice a day 6. Iron CR 90mg Oral twice a day 7. spironolactone 25 mg Oral tab 1 tab 2 times per day 8. trazodone 50 mg Oral tab 1 tab nightly 9. Nexium 40 mg Oral cpDR 1 cap once daily 10. meclizine 25 mg Oral tab 1 tab 2 times per day 11. furosemide 40 mg Oral tab 1 tab 2 times per day - PMHx: Anxiety; Ascites; Cirrhosis; Diabetes - IDDM: controlled; GERD; Hypercholesterolemia; Hypertension; Pancreatitis; Vertigo; - PSHx: Hysterectomy; D & C; right knee surgery; left shoulder surgery; left elbow surgery; Hernia repair; Appendectomy; right shoulder; - Social history: Smoking status: Patient states was never smoker of tobacco. No barriers to communication noted, The patient speaks fluent Japanese. - Family history: Not pertinent, No immediate family members are acutely ill. - : The pt / caregiver states he / she is not on anticoagulants. Home medication list is obtained from the patient, [employer] import data. - Exposure Risk Screening:: None identified. Screenin:32 Screening information is obtained from the patient. Fall risk: At risk due to SOB. mlc Assistance ADL's: requires no assistance with activities of daily living. Abuse/DV Screen: The patient / caregiver reports he/she is: not in a situation that causes fear, pain or injury. Nutritional screening: On diabetic diet. Advance Directives: Currently, there is no health care proxy. There is no active DNR order. There is no living will. There is no Power of Escalator Mechanic. home support is adequate. Assessment: 03:50 General: Appears in no apparent distress, comfortable, Behavior is cooperative. mlc Neurological: Level of Consciousness is awake, alert, Oriented to person, place, time. Cardiovascular: Capillary refill < 3 seconds Heart tones S1 S2 present Rhythm is regular. Cardiovascular: Chest pain is located in substernal area radiates Does not radiate. is aggravated by breathing. Respiratory: Airway is patent Respiratory effort is even, unlabored, Respiratory pattern is regular, Breath sounds with crackles in right posterior lower lobe. GI: Abdomen is distended, Bowel sounds present X 4 quads. firm x4 quad. Derm: Skin is normal. 05:22 Reassessment: Patient appears in no apparent distress at this time. pt taken to and mlc returned from CT, tolerated well. pt SOB after moving from CT table. pt able to breath better after resting, SPO2 96% on 2L NC. 06:30 General: Appears in no apparent distress, comfortable. General: pt resting comfortably mlc on stretcher, awaiting Dr. Tom. Neurological: Level of Consciousness is awake, alert, Oriented to person, place, time. Respiratory: Airway is patent Respiratory effort is even, unlabored, Respiratory pattern is regular. 07:00 General: Dr. Tom at bedside. Pt sitting on side of bed with feet dangling, pt leaning mlc onto bedside table. . 07:07 General: Lidocaine administered by Dr. Tom, pt reports feeling like the room is mlc spinning, pt leaning to one side. pt closed eyes and leaning to left side. Dr. Tom unable to perform procedure. Vitals stable, resp easy/unlabored, SPO2 maintained. . 07:10 General: Pt aroused to minimal tactile stimulation. Pt resting on stretcher at this mlc time, vitals stable. Resp easy/unlabored. . 07:43 General: Appears presently resting quietly. no observed resp distress. conversing [facility] lengthy sentences without resp interruption. awaiting transportation from [facility].. 08:22 General: Appears continues to present without resp distress. [facility] Vital Signs: 03:28 BP 146 / 70; Pulse 90; Resp 20; Temp 97.4(O); Pulse Ox 95% on R/A; Weight 110.22 kg jmv (R); Height 5 ft. 1 in. (154.94 cm) (R); Pain 4/10; 03:36 Pulse 90 MON; Pulse Ox 57% ; mlc 03:36 BP 122 / 56 (auto/); mlc 03:51 Pulse 84 MON; Pulse Ox 94% ; mlc 03:51 BP 113 / 57 (auto/); mlc 04:06 Pulse 80 MON; Pulse Ox 94% ; mlc 04:06 BP 119 / 56 (auto/); mlc 04:21 BP 127 / 62 (auto/); mlc 04:21 Pulse 80 MON; mlc 04:36 BP 137 / 57 (auto/); mlc 04:36 Pulse 82 MON; Pulse Ox 96% ; mlc 04:51 Pulse 78 MON; Pulse Ox 96% ; mlc 04:51 BP 120 / 60 (auto/); mlc 05:06 BP 120 / 57 (auto/); mlc 05:06 Pulse 80 MON; mlc 05:21 BP 115 / 53 (auto/); mlc 05:21 Pulse 76 MON; Pulse Ox 99% ; mlc 05:36 BP 114 / 54 (auto/); mlc 05:36 Pulse 78 MON; Pulse Ox 97% ; 05:51 BP 113 / 58 (auto/); aug 18:51 Pulse 80 MON; Pulse Ox 96% ; aug 06:07 BP 102 / 58 (auto/); mlc 06:08 Temp 97.7(O); mlc 06:10 Pulse 79 MON; Pulse Ox 96% ; mlc 06:15 BP 106 / 53 (auto/); mlc 06:15 Pulse 79 MON; Pulse Ox 96% ; mlc 06:22 Pulse 79 MON; Pulse Ox 96% ; mlc 06:30 Pulse 81 MON; Pulse Ox 96% ; mlc 06:30 BP 110 / 56 (auto/); mlc 06:45 Pulse 80 MON; Pulse Ox 95% ; mlc 06:45 BP 127 / 56 (auto/); mlc 07:00 Pulse 82 MON; Pulse Ox 96% ; mlc 07:00 BP 123 / 58 (auto/); mlc 07:08 Pulse 83 MON; Pulse Ox 96% ; mlc 07:08 BP 113 / 55 (auto/); mlc 07:13 Pulse 74 MON; mlc 07:13 BP 101 / 57 (auto/); mlc 07:15 BP 111 / 77 (auto/); mlc 07:15 Pulse 71 MON; Pulse Ox 94% ; mlc 08:22 BP 123 / 55; Pulse 77; Resp 18; Temp 97.3; Pulse Ox 93% on R/A; k 03:28 Body Mass Index 45.91 (110.22 kg, 154.94 cm) [facility] Vitals: 03:30 Log In Time N/A - ambulance arrival. [facility] ED Course: 03:15 Patient visited by Eleno Wyatt, Lens Cutter. ml3 03:15 Suzy Cesar is Private Physician. ml3 03:15 Sadaf uBtcher,LIDYA is Primary Nurse. ml3 03:15 Patient moved to Waiting ml3 03:15 Patient moved to 10 ml3 03:23 Triage Initiated mlc 03:28 Pt greeted and oriented to ED. Patient advised of names of staff involved in care, jmmarian location of call constantino, wait times and NPO status. Patient has correct armband on for positive identification. Placed in gown. Bed in low position. Call light in reach. Side rails up X2. security monitor on. Pulse ox on. NIBP on. 03:29 Patient visited by Darius Cates PCA. jmv 03:36 The patient / caregiver is instructed regarding the plan of care and ED course. mlc 03:37 Sharyn Carrillo DO is Attending Physician. mm11 03:37 Patient visited by Sharyn Carrillo DO. mm11 03:50 Inserted saline lock: 20 gauge in left antecubital area and blood collected. The [facility] patient tolerated the procedure well. 03:53 Patient visited by Sadaf Butcher RN. mlc 03:56 Patient visited by Sharyn Carrillo DO. mm11 04:06 Patient visited by Leona Santizo PCA. tip 04:06 EKG done. (by ED staff). Reviewed by Sharyn Carrillo DO. tip 04:21 Venous Blood Gas (large pea green tube on ice) Sent. mlc 04:21 BLOOD CULTURES Sent. mlc 04:50 LIVER PROFILE Sent. mlc 05:00 Patient name changed from Saroj\\S\\G\\S\\Palma\\S\\ to Saroj\\S\\Ankita\\S\\Palma. EDMS 05:00 [facility] Payment Agreement was scanned into [employer] and attached to record. slh 05:07 Patient visited by Leona Santizo PCA. tip 05:24 Patient visited by Sadaf Butcher RN. mlc 06:02 Patient visited by Sharyn Carrillo DO. mm11 06:04 Patient moved to 3 ml3 06:29 CT Chest Angio R/O PE Returned. EDMS 06:30 No procedures done that require assistance. mlc 06:43 Patient visited by Sadaf Butcher RN. mlc 06:51 CT ABD & PELVIS: IV Contrast Only Returned. EDMS 07:14 Suzy Cesar is Referral Physician. mm11 07:23 Primary Nurse role handed off by Sadaf Butcher RN deg 07:44 Patient visited by Sy Mix RN. jmk 08:15 Chest, 1 View Returned. EDMS 08:22 Discontinued lock intact, bleeding controlled, pressure dressing applied, No jmk redness/swelling at site. 09:46 EKG-ADULT Returned. EDMS 13:05 T-Sheet-- Draft Copy was scanned into [employer] and attached to record. 08/23 12:00 ECG/EKG was scanned into [employer] and attached to record. gb 12: [place] Protocol was scanned into [employer] and attached to record. gb 12: Consents was scanned into [employer] and attached to record. gb 12: Radiology Report was scanned into [employer] and attached to record. gb Attachments: 12: [place] Protocol gb 12:01 Consents gb Order Results: Lab Order: -Blood Culture; SPEC'M 08/22/16 03:45 Test: BLOOD CULTURE; Value: No growth after 24 hours . All specimens observed; Status: F Test: BLOOD CULTURE; Value: for 5 days. Results final at that time.; Status: F Test: BLOOD CULTURE; Value: No Growth after 48 hours. All Specimens observed; Status: F Test: BLOOD CULTURE; Value: for 7 days. Results final at that time.; Status: F Lab Order: B-Type Natiuretic Peptide; SPEC'M 08/22/16 03:45 Test: BRAIN NATRIURETIC PEPTIDE; Value: 14.0; Range: <100; Units: PG/ML; Status: F Lab Order: Basic Metabolic Profile; SPEC'M 08/22/16 03:45 Test: GLUCOSE, FASTING; Value: 244; Range: 80-110; Abnormal: Above high normal; Units: MG/DL; Status: F Test: BLOOD UREA NITROGEN; Value: 8; Range: 7-18; Units: MG/DL; Status: F Test: CREATININE FOR GFR; Value: 0.94; Range: 0.55-1.02; Units: MG/DL; Status: F Test: GLOMERULAR FILTRATION RATE; Value: > 60.0; Range: >45; Status: F Test: SODIUM LEVEL; Value: 146; Range: 136-145; Abnormal: Above high normal; Units: MEQ/L; Status: F Test: POTASSIUM SERUM; Value: 3.4; Range: 3.5-5.1; Abnormal: Below low normal; Units: MEQ/L; Status: F Test: CHLORIDE LEVEL; Value: 105; Range: 98-107; Units: MEQ/L; Status: F Test: CARBON DIOXIDE LEVEL; Value: 29; Range: 21-32; Units: MEQ/L; Status: F Test: ANION GAP; Value: 12; Range: 8-16; Units: MEQ/L; Status: F Test: CALCIUM LEVEL; Value: 8.3; Range: 8.8-10.2; Abnormal: Below low normal; Units: MG/DL; Status: F Test Note: ; Units are mL/min/1.73 m2 Chronic Kidney Disease Staging per NKF: Stage I & II GFR >=60 Normal to Mildly Decreased Stage III GFR 30-59 Moderately Decreased Stage IV GFR 15-29 Severely Decreased Stage V GFR <15 Very Little GFR Left ESRD GFR <15 on PIECE WORK INSPECTOR Lab Order: CBC with Diff; SPEC'M 08/22/16 03:45 Test: WHITE BLOOD COUNT; Value: 3.1; Range: 4.0-10.0; Abnormal: Below low normal; Units: K/mm3; Status: F Test: RED BLOOD COUNT; Value: 4.42; Range: 4.00-5.40; Units: M/mm3; Status: F Test: HEMOGLOBIN; Value: 14.1; Range: 12.0-16.0; Units: g/dl; Status: F Test: HEMATOCRIT; Value: 41.7; Range: 36.0-47.0; Units: %; Status: F Test: MEAN CORPUSCULAR VOLUME; Value: 94.5; Range: 80.0-96.0; Units: fl; Status: F Test: MEAN CORPUSCULAR HEMOGLOBIN; Value: 31.9; Range: 27.0-33.0; Units: pg; Status: F Test: MEAN CORPUSCULAR HGB CONC; Value: 33.8; Range: 32.0-36.5; Units: g/dl; Status: F Test: RED CELL DISTRIBUTION WIDTH; Value: 14.2; Range: 11.5-14.5; Units: %; Status: F Test: PLATELET COUNT, AUTOMATED; Value: 61; Range: 150-450; Abnormal: Below low normal; Units: k/mm3; Status: F Test: NEUTROPHILS %; Value: 58.2; Range: 36.0-66.0; Units: %; Status: F Test: LYMPH %; Value: 27.5; Range: 24.0-44.0; Units: %; Status: F Test: MONO %; Value: 7.0; Range: 0.0-5.0; Abnormal: Above high normal; Units: %; Status: F Test: EOS %; Value: 3.4; Range: 0.0-3.0; Abnormal: Above high normal; Units: %; Status: F Test: BASO %; Value: 0.9; Range: 0.0-1.0; Units: %; Status: F Test: LARGE UNSTAINED CELL %; Value: 3.0; Range: 0.0-4.0; Units: %; Status: F Test: NEUTROPHILS #; Value: 1.8; Range: 1.8-7.7; Units: K/mm3; Status: F Test: LYMPH #; Value: 0.9; Range: 1.5-4.5; Abnormal: Below low normal; Units: K/mm3; Status: F Test: MONO #; Value: 0.2; Range: 0.0-0.8; Units: K/mm3; Status: F Test: EOS #; Value: 0.1; Range: 0.0-0.50; Units: K/mm3; Status: F Test: BASO #; Value: 0.0; Range: 0.0-0.2; Units: K/mm3; Status: F Test: LARGE UNSTAINED CELL #; Value: 0.1; Range: 0.0-0.4; Units: K/mm3; Status: F Lab Order: Cardiac Injury Profile; [facility]' 08/22/16 03:45 Test: CPK CREATINE PHOSPHOKINASE; Value: 81; Range: 26-192; Units: U/L; Status: F Test: CK-MB VALUE MASS; Value: 1.0; Range: 0.0-3.6; Units: NG/ML; Status: F Test: MB/CK RELATIVE INDEX; Value: 1.23; Range: < OR =4; Status: F Test Note: ; DIAGNOSIS CRITERIA MMB ng/ml Relative Index (RI) NON-AMI < or = 5 N/A RINCON ZONE > 5 < or = 4 AMI > 5 > 4 Lab Order: Troponin; [facility]08/22/16 03:45 Test: TROPONIN I; Value: < 0.02; Range: < 0.10; Units: NG/ML; Status: F Test Note: ; Troponin I Reference Interval for [facility] LOCI: 99th Percentile= 0.00-0.045 ng/ml Risk Stratification: <= 0.10 ng/ml Decreased Risk for Adverse Clinical Events. 0.10-1.50 ng/ml Increased Risk for Adverse Clinical Events. Evaluation of additional criterion and/or repeat testing in 2-6 hours is suggested to rule out myocardial damage. >= 1.50 ng/ml Indicative of Myocardial Injury. Lab Order: Venous Blood Gas (large pea green tube on ice); 08/22/16 04:09 Test: VENOUS PH; Value: 7.513; Range: 7.330-7.430; Abnormal: Above high normal; Units: UNITS; Status: F Test: VENOUS PARTIAL PRESSURE CO2; Value: 37.0; Range: 38.0-50.0; Abnormal: Below low normal; Units: mmHg; Status: F Test: VENOUS PARTIAL PRESSURE O2; Value: 87.7; Range: 30.0-50.0; Abnormal: Above high normal; Units: mmHg; Status: F Test: VENOUS TOTAL CO2; Value: 30.2; Range: 24.0-28.0; Abnormal: Above high normal; Units: MEQ/L; Status: F Test: VENOUS HCO3; Value: 29.1; Range: 23.0-27.0; Abnormal: Above high normal; Units: MEQ/L; Status: F Test: VENOUS BASE EXCESS; Value: 6.0; Range: -2.0-2.0; Abnormal: Above high normal; Status: F Test: VENOUS STANDARD HCO3; Value: 29.9; Units: MEQ/L; Status: F Test: VENOUS O2 SATURATION; Value: 97.2; Range: 60.0-80.0; Abnormal: Above high normal; Units: %; Status: F Lab Order: BLOOD CULTURES; [facility] 08/22/16 04:09 Test: BLOOD CULTURE; Value: No growth after 24 hours . All specimens observed; Status: F Test: BLOOD CULTURE; Value: for 5 days. Results final at that time.; Status: F Test: BLOOD CULTURE; Value: No Growth after 48 hours. All Specimens observed; Status: F Test: BLOOD CULTURE; Value: for 7 days. Results final at that time.; Status: F Lab Order: Pt & Aptt; SPEC'M 08/22/16 03:44 Test: PROTHROMBIN TIME; Value: 15.3; Range: 12.3-14.5; Abnormal: Above high normal; Units: SECONDS; Status: F Test: INR; Value: 1.20; Status: F Test: PARTIAL THROMBOPLASTIN TIME; Value: 27.6; Range: 26.6-37.1; Units: SECONDS; Status: F Test Note: ; THERAPUTIC HUMAN INR VALUES INDICATIONS NORMAL RANGES PROPHYLAXIS/TREATMENT OF: VENOUS THROMBOSIS 2.0-3.0 PULMONARY EMBOLISM 2.0-3.0 PREVENTION OF SYSTEMIC EMBOLISM FROM: TISSUE HEART VALVES 2.0-3.0 ACUTE MYOCARDIAL INFARCTION 2.0-3.0 VALVULAR HEART DISEASE 2.0-3.0 ATRIAL FIBRILLATION 2.0-3.0 MECHANICAL VALVES(HIGH RISK) 2.5-3.5 RECURRENT MYOCARDIAL INFARCTION 2.5-3.5 Lab Order: LIVER PROFILE; SPEC'M 08/22/16 03:45 Test: AST/SGOT; Value: 42; Range: 15-37; Abnormal: Above high normal; Units: U/L; Status: F Test: ALT/SGPT; Value: 31; Range: 12-78; Units: U/L; Status: F Test: ALKALINE PHOSPHATASE; Value: 209; Range: 45-117; Abnormal: Above high normal; Units: U/L; Status: F Test: BILIRUBIN,TOTAL; Value: 0.5; Range: 0.2-1.0; Units: MG/DL; Status: F Test: BILIRUBIN,DIRECT; Value: 0.1; Range: 0.0-0.2; Units: MG/DL; Status: F Test: TOTAL PROTEIN; Value: 7.3; Range: 6.4-8.2; Units: GM/DL; Status: F Test: ALBUMIN; Value: 3.2; Range: 3.2-5.2; Units: GM/DL; Status: F Test: ALBUMIN/GLOBULIN RATIO; Value: 0.78; Range: 1.00-1.93; Abnormal: Below low normal; Status: F Radiology Order: Chest, 1 View Test: Chest, 1 View REASON FOR EXAMINATION: Shortness of Breath; AP portable sitting chest radiograph 08/22/2016; ; Indication: Shortness of breath; ; Comparison: AP supine chest with bilateral rib series 07/08/2016, CTA chest also; performed 08/22/2016; ; Findings: The cardiomediastinal silhouette is within normal limits. There is a; [id number] right pleural effusion with right basilar parenchymal disease; compatible with compressive atelectasis. Mild atelectatic changes are seen in; the left base. The bones and soft tissues are grossly normal.; ; Impression:; ; Moderate to large right pleural effusion with moderate right lower lobe; compressive atelectasis. 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; : 1955 Requested By: SHARYN Casey; Order Number: [id number] Reading MD: Bre Lamar; Measurements; Intervals [place]; Rate: 82 P: 40; NH: 140 QRS: -18; QRSD: 107 T: 15; QT: 398; QTc: 468; Interpretive Statements; SINUS RHYTHM; NONSPECIFIC T-WAVE ABNORMALITY; PRWP; SIMILAR 07/05/16; Electronically Signed On 08-22-2016 9:29:37 EST by Bre Lamar; Radiology Order: CT Chest Angio R/O PE Test: CT Chest Angio R/O PE REASON FOR EXAMINATION: Shortness of Breath; ; CLINICAL HISTORY: Dyspnea, exclude PE.; TECHNIQUE: Multiple incremental axial, coronal and oblique images are obtained from the thoracic inle; t to the upper abdomen. Intravenous contrast material was administered as per pulmonary embolism prot; ocol.; COMMENTS:; Moderate size right pleural effusion. Passive atelectatic airspace disease of the right lower lobe. M; ild cardiomegaly.; There is excellent opacification of pulmonary arterial system without evidence for pulmonary embolism; . Aorta is of normal caliber without evidence for dissection or aneurysm.; There is no evidence of hilar or mediastinal lymphadenopathy.; Images of the upper abdomen demonstrate no evidence of adrenal mass.; The bony structures are free of lytic or blastic lesions.; IMPRESSION:; No evidence for pulmonary embolism.; Moderate right pleural effusion.; Passive atelectatic airspace disease of the right lower lobe.; Mild mediastinal shift to the left side.; Thank you for your kind referral of this patient.; ; Radiology Order: CT ABD & PELVIS: IV Contrast Only Test: CT ABD & PELVIS: IV Contrast Only REASON FOR EXAMINATION: ASCITES; ; CLINICAL HISTORY: Abdominal pain.; TECHNIQUE: Multiple axial, sagittal and coronal CT images were obtained through the abdomen and pelvi; s after administration of intravenous contrast material.; COMMENTS:; There is diffuse irregular hepatic contour.; Mild splenomegaly. There is no intra or extrahepatic biliary ductal dilatation.; The gallbladder contains multiple gallstones. The pancreas is of normal contour and attenuation chayo; cteristics. There is no evidence of adrenal mass.; Both kidneys demonstrate prompt and equal nephrograms. The kidneys are normal in size, shape and conf; iguration. There is no evidence of renal or ureteral mass. No renal or ureteral calculi are identifie; d. There is no hydroureter or hydronephrosis.; No evidence for appendicitis. No evidence for small or large bowel obstruction. Diffuse thickening; of the stomach and the duodenum. Mildly fluid-filled small bowels.; There is no evidence of intrinsic or extrinsic bladder mass. Moderate large fecal stasis. Uncomplicat; ed clonic diverticulosis. Central mesenteric panniculitis.; The bony structures are free of lytic or blastic lesions. Multilevel degenerative changes are seen in; volving the thoracolumbar spine. Scattered calcifications are seen involving the aorta and major bran; ches compatible with atherosclerosis.; IMPRESSION:; Parenchymal liver disease.; Portal hypertension.; Ascites.; Central mesenteric panniculitis.; Gastroduodenitis.; Constipation.; Cholelithiasis.; Thickened gallbladder. This can be secondary to inflammatory pathology, ascites or parenchymal liver; disease.; Mildly thickened bladder.; Thank you for your kind referral of this patient.; ; Outcome: 08/22 05:24 CT Study completed. [facility] 07:15 Discharge ordered by Provider. mm11 08:22 Discharge Assessment: Patient awake, alert and oriented x 3. No cognitive and/or jmk functional deficits noted. Patient verbalized understanding of disposition instructions. patient administered narcotics - no. The following High Risk Discharge criteria are identified: None. Discharged to home ambulatory. Condition: good. Discharge instructions given to patient, Instructed on discharge instructions, follow up and referral plans. medication usage, Demonstrated understanding of instructions, medications, Pt was receptive of discharge instructions/ teaching. Property :Personal belongings accompany Pt. 08:24 Patient left the ED. nicolas Signatures: Dispatcher [employer] EDMS Sherrill Willard, Lens Cutter Unit deg Sy Mix RN RN jmk Newman, Jill New, RN Michelle Anderson, Kevin Reg Frank Miguelbeth, Lens Cutter Unit ml3 Sharyn Carrillo, DO DO mm11 Leona Santizo, MANAGER MONITORING MANAGER MONITORING Sadaf Em,Adry Silverio RN, Jose, MANAGER MONITORING MANAGER MONITORING jm Corrections: (The following items were deleted from the chart) 04:50 04:49 LIVER PROFILE+LAB sent. [facility] EDMS Chart Complete MTDD
--- NOTE | 2016-09-03 09:56 | EDDOCDS ---
Physician Documentation [facility] Name: Olga Palma Age: 60 yrs Sex: Female : 1955 Arrival Date: 08/22/2016 Time: 03:14 Bed 3 Private MD: Ashely Fletcher M. Disposition: 08/22/16 07:15 Discharged to Home/Self Care. Impression: Pleural effusion in other conditions classified elsewhere, Ascites. - Condition is Stable. - Discharge Instructions: Pleural Effusion, Thoracentesis. - Medication Reconciliation, Local Pharmacy Hours form. - Follow up: Ashely Fletcher; When: 1 - 2 days; Reason: Continuance of care. - Problem is an acute exacerbation. - Symptoms have improved. - Notes: YOUR CT SCAN SHOWS YOU HAVE A MODERATE PLEURAL EFFUSION. DR. OLSON ATTEMPTED TO DRAIN OF SOME OF THE FLUID FOR YOUR COMFORT BUT WAS UNABLE TO. YOUR OXYGENATION IS APPROPRIATE. FOLLOW UP WITH DR. FLETCHER FOR FURTHER MANAGEMENT OF YOUR DIURETICS PER PULMONOLGY. I HAVE SPOKE WITH DR. SINGH IN REGARDS TO YOUR CASE AND THE OFFICE WILL BE EXPECTING YOUR CALL. Historical: - Allergies: Atacand (chest pain); candesartan; Hydrochlorothiazide (chest pain); - Home Meds: 1. aspirin 81 mg Oral chew 1 tab once daily 2. Calcium+D 500 mg(1,250mg) -200 unit oral tab twice a day 3. Lexapro 20 mg Oral tab 1 tab once daily 4. Novolog 100 unit/mL Sub-Q soln sliding scale 5. Lantus 100 unit/mL Sub-Q soln 64 unit twice a day 6. Iron CR 90mg Oral twice a day 7. spironolactone 25 mg Oral tab 1 tab 2 times per day 8. trazodone 50 mg Oral tab 1 tab nightly 9. Nexium 40 mg Oral cpDR 1 cap once daily 10. meclizine 25 mg Oral tab 1 tab 2 times per day 11. furosemide 40 mg Oral tab 1 tab 2 times per day - PMHx: Anxiety; Ascites; Cirrhosis; Diabetes - IDDM: controlled; GERD; Hypercholesterolemia; Hypertension; Pancreatitis; Vertigo; - PSHx: Hysterectomy; D & C; right knee surgery; left shoulder surgery; left elbow surgery; Hernia repair; Appendectomy; right shoulder; - Social history: Smoking status: Patient states was never smoker of tobacco. No barriers to communication noted, The patient speaks fluent Bangladeshi. - Family history: Not pertinent, No immediate family members are acutely ill. - : The pt / caregiver states he / she is not on anticoagulants. Home medication list is obtained from the patient, [employer] import data. - Exposure Risk Screening:: None identified. Vital Signs: 08/22 03:28 BP 146 / 70; Pulse 90; Resp 20; Temp 97.4(O); Pulse Ox 95% on R/A; Weight 110.22 kg / jmv 242.99 lbs (R); Height 5 ft. 1 in. (154.94 cm) (R); Pain 4/10; 03:36 Pulse 90 MON; Pulse Ox 57% ; mlc 03:36 BP 122 / 56 (auto/); mlc 03:51 Pulse 84 MON; Pulse Ox 94% ; mlc 03:51 BP 113 / 57 (auto/); mlc 04:06 Pulse 80 MON; Pulse Ox 94% ; mlc 04:06 BP 119 / 56 (auto/); mlc 04:21 BP 127 / 62 (auto/); mlc 04:21 Pulse 80 MON; mlc 04:36 BP 137 / 57 (auto/); mlc 04:36 Pulse 82 MON; Pulse Ox 96% ; mlc 04:51 Pulse 78 MON; Pulse Ox 96% ; mlc 04:51 BP 120 / 60 (auto/); mlc 05:06 BP 120 / 57 (auto/); mlc 05:06 Pulse 80 MON; mlc 05:21 BP 115 / 53 (auto/); mlc 05:21 Pulse 76 MON; Pulse Ox 99% ; mlc 05:36 BP 114 / 54 (auto/); mlc 05:36 Pulse 78 MON; Pulse Ox 97% ; mlc 05:51 BP 113 / 58 (auto/); aug 05:51 Pulse 80 MON; Pulse Ox 96% ; aug 06:07 BP 102 / 58 (auto/); mlc 06:08 Temp 97.7(O); mlc 06:10 Pulse 79 MON; Pulse Ox 96% ; mlc 06:15 BP 106 / 53 (auto/); mlc 06:15 Pulse 79 MON; Pulse Ox 96% ; mlc 06:22 Pulse 79 MON; Pulse Ox 96% ; mlc 06:30 Pulse 81 MON; Pulse Ox 96% ; mlc 06:30 BP 110 / 56 (auto/); mlc 06:45 Pulse 80 MON; Pulse Ox 95% ; mlc 06:45 BP 127 / 56 (auto/); mlc 07:00 Pulse 82 MON; Pulse Ox 96% ; mlc 07:00 BP 123 / 58 (auto/); mlc 07:08 Pulse 83 MON; Pulse Ox 96% ; mlc 07:08 BP 113 / 55 (auto/); mlc 07:13 Pulse 74 MON; mlc 07:13 BP 101 / 57 (auto/); mlc 07:15 BP 111 / 77 (auto/); mlc 07:15 Pulse 71 MON; Pulse Ox 94% ; mlc 08:22 BP 123 / 55; Pulse 77; Resp 18; Temp 97.3; Pulse Ox 93% on R/A; [facility] 03:28 Body Mass Index 45.91 (110.22 kg, 154.94 cm) [facility] MDM: 03:57 -Blood Culture (Adults Only), peripheral from different site, or from device/port/PICC mm11 etc. if present ordered. 03:57 Balance Wheel Arm Burnisher/Pulse Ox/q 15 min VS ordered. mm11 03:57 IV Saline Lock ordered. mm11 03:57 Oxygen at 4L/Min NC or Home dosage ordered. mm11 03:57 Rhythm Strip to chart ordered. mm11 03:57 B-Type Natiuretic Peptide Ordered. EDMS 03:57 Basic Metabolic Profile Ordered. EDMS 03:57 CBC with Diff Ordered. EDMS 03:57 Cardiac Injury Profile Ordered. EDMS 03:57 Troponin Ordered. EDMS 03:57 -Blood Culture Ordered. EDMS 03:58 Chest, 1 View Ordered. EDMS 03:58 ECG WITH READING ER PHYS+CARDIAG ordered. EDMS 03:58 Venous Blood Gas (large pea green tube on ice) Ordered. EDMS 03:59 -Blood Culture (Adults Only), peripheral from different site, or from device/port/PICC ml3 etc. if present complete. 04:00 BLOOD CULTURES Ordered. EDMS 04:39 Basic Metabolic Profile Reviewed. mm11 04:39 Venous Blood Gas (large pea green tube on ice) Reviewed. mm11 04:39 B-Type Natiuretic Peptide Reviewed. mm11 04:39 Cardiac Injury Profile Reviewed. mm11 04:39 Troponin Reviewed. mm11 04:41 CT Chest Angio R/O PE Ordered. EDMS 04:41 CT ABD & PELVIS: IV Contrast Only Ordered. EDMS 04:42 CBC with Diff Reviewed. mm11 04:47 Pt & Aptt Ordered. EDMS 04:48 Financial registration complete. [facility] 04:50 LIVER PROFILE Ordered. EDMS 05:00 [facility] Payment Agreement was scanned into [employer] and attached to record. [facility] 05:39 Basic Metabolic Profile Reviewed. mm11 05:39 Pt & Aptt Reviewed. mm11 05:39 LIVER PROFILE Reviewed. mm11 05:39 Cardiac Injury Profile Reviewed. mm11 05:39 Troponin Reviewed. [facility] 13:05 T-Sheet-- Draft Copy was scanned into MEDHOST and attached to record. 08/23 12:00 ECG/EKG was scanned into MED[employer] and attached to record. 12:01 [place] Protocol was scanned into MED[employer] and attached to record. 12:01 Consents was scanned into MEDHOST and attached to record. 12:01 Radiology Report was scanned into MEDHOST and attached to record. 13:26 ED course: ashely fletcher faxed formal report of cta for fu mlg. ml 13:26 ED course: cxr also faxed to ashely matias. ml 13:27 ED course: also ct abd/p faxed to dr ana maria gomes. ml Signatures: Dispatcher MedHo EDVT Ana Hernandez MD MD ml Knapp, Jean,RN RN Michelle Caldwell, Reg Reg gb Yoselin, TameraYaneth, Juvenile Probation Officer Unit ml3 Claudio Carrillo, DO 11 Sadaf Butcher RN RN mlc Hook, Sandra [facility] The chart was reviewed and I authenticate all verbal orders and agree with the evaluation and treatment provided.Corrections: (The following items were deleted from the chart) 08/22 04:50 04:47 LIVER PROFILE+LAB ordered. EDVT EDMS Attachments: 05:00 [facility] Payment Agreement [facility] 13:05 T-Sheet-- Draft Copy 08/23 12:00 ECG/EKG gb Chart Complete MTDD
--- NOTE | 2016-09-03 09:56 | EDDOCDS ---
Physician Documentation [facility] Name: Olga Palma Age: 60 yrs Sex: Female : 1955 Arrival Date: 08/22/2016 Time: 03:14 Bed 3 Private MD: Ashely Fletcher M. Disposition: 08/22/16 07:15 Discharged to Home/Self Care. Impression: Pleural effusion in other conditions classified elsewhere, Ascites. - Condition is Stable. - Discharge Instructions: Pleural Effusion, Thoracentesis. - Medication Reconciliation, Local Pharmacy Hours form. - Follow up: Ashely Fletcher; When: 1 - 2 days; Reason: Continuance of care. - Problem is an acute exacerbation. - Symptoms have improved. - Notes: YOUR CT SCAN SHOWS YOU HAVE A MODERATE PLEURAL EFFUSION. DR. OLSON ATTEMPTED TO DRAIN OF SOME OF THE FLUID FOR YOUR COMFORT BUT WAS UNABLE TO. YOUR OXYGENATION IS APPROPRIATE. FOLLOW UP WITH DR. FLETCHER FOR FURTHER MANAGEMENT OF YOUR DIURETICS PER PULMONOLGY. I HAVE SPOKE WITH DR. SINGH IN REGARDS TO YOUR CASE AND THE OFFICE WILL BE EXPECTING YOUR CALL. Historical: - Allergies: Atacand (chest pain); candesartan; Hydrochlorothiazide (chest pain); - Home Meds: 1. aspirin 81 mg Oral chew 1 tab once daily 2. Calcium+D 500 mg(1,250mg) -200 unit oral tab twice a day 3. Lexapro 20 mg Oral tab 1 tab once daily 4. Novolog 100 unit/mL Sub-Q soln sliding scale 5. Lantus 100 unit/mL Sub-Q soln 64 unit twice a day 6. Iron CR 90mg Oral twice a day 7. spironolactone 25 mg Oral tab 1 tab 2 times per day 8. trazodone 50 mg Oral tab 1 tab nightly 9. Nexium 40 mg Oral cpDR 1 cap once daily 10. meclizine 25 mg Oral tab 1 tab 2 times per day 11. furosemide 40 mg Oral tab 1 tab 2 times per day - PMHx: Anxiety; Ascites; Cirrhosis; Diabetes - IDDM: controlled; GERD; Hypercholesterolemia; Hypertension; Pancreatitis; Vertigo; - PSHx: Hysterectomy; D & C; right knee surgery; left shoulder surgery; left elbow surgery; Hernia repair; Appendectomy; right shoulder; - Social history: Smoking status: Patient states was never smoker of tobacco. No barriers to communication noted, The patient speaks fluent Uzbek. - Family history: Not pertinent, No immediate family members are acutely ill. - : The pt / caregiver states he / she is not on anticoagulants. Home medication list is obtained from the patient, [employer] import data. - Exposure Risk Screening:: None identified. Vital Signs: 08/22 03:28 BP 146 / 70; Pulse 90; Resp 20; Temp 97.4(O); Pulse Ox 95% on R/A; Weight 110.22 kg / jmv 242.99 lbs (R); Height 5 ft. 1 in. (154.94 cm) (R); Pain 4/10; 03:36 Pulse 90 MON; Pulse Ox 57% ; mlc 03:36 BP 122 / 56 (auto/); mlc 03:51 Pulse 84 MON; Pulse Ox 94% ; mlc 03:51 BP 113 / 57 (auto/); mlc 04:06 Pulse 80 MON; Pulse Ox 94% ; mlc 04:06 BP 119 / 56 (auto/); mlc 04:21 BP 127 / 62 (auto/); mlc 04:21 Pulse 80 MON; mlc 04:36 BP 137 / 57 (auto/); mlc 04:36 Pulse 82 MON; Pulse Ox 96% ; mlc 04:51 Pulse 78 MON; Pulse Ox 96% ; mlc 04:51 BP 120 / 60 (auto/); mlc 05:06 BP 120 / 57 (auto/); mlc 05:06 Pulse 80 MON; mlc 05:21 BP 115 / 53 (auto/); mlc 05:21 Pulse 76 MON; Pulse Ox 99% ; mlc 05:36 BP 114 / 54 (auto/); mlc 05:36 Pulse 78 MON; Pulse Ox 97% ; mlc 05:51 BP 113 / 58 (auto/); aug 05:51 Pulse 80 MON; Pulse Ox 96% ; aug 06:07 BP 102 / 58 (auto/); mlc 06:08 Temp 97.7(O); mlc 06:10 Pulse 79 MON; Pulse Ox 96% ; mlc 06:15 BP 106 / 53 (auto/); mlc 06:15 Pulse 79 MON; Pulse Ox 96% ; mlc 06:22 Pulse 79 MON; Pulse Ox 96% ; mlc 06:30 Pulse 81 MON; Pulse Ox 96% ; mlc 06:30 BP 110 / 56 (auto/); mlc 06:45 Pulse 80 MON; Pulse Ox 95% ; mlc 06:45 BP 127 / 56 (auto/); mlc 07:00 Pulse 82 MON; Pulse Ox 96% ; mlc 07:00 BP 123 / 58 (auto/); mlc 07:08 Pulse 83 MON; Pulse Ox 96% ; mlc 07:08 BP 113 / 55 (auto/); mlc 07:13 Pulse 74 MON; mlc 07:13 BP 101 / 57 (auto/); mlc 07:15 BP 111 / 77 (auto/); mlc 07:15 Pulse 71 MON; Pulse Ox 94% ; mlc 08:22 BP 123 / 55; Pulse 77; Resp 18; Temp 97.3; Pulse Ox 93% on R/A; [facility] 03:28 Body Mass Index 45.91 (110.22 kg, 154.94 cm) [facility] MDM: 03:57 -Blood Culture (Adults Only), peripheral from different site, or from device/port/PICC mm11 etc. if present ordered. 03:57 Surgical Technician/Pulse Ox/q 15 min VS ordered. mm11 03:57 IV Saline Lock ordered. mm11 03:57 Oxygen at 4L/Min NC or Home dosage ordered. mm11 03:57 Rhythm Strip to chart ordered. mm11 03:57 B-Type Natiuretic Peptide Ordered. EDMS 03:57 Basic Metabolic Profile Ordered. EDMS 03:57 CBC with Diff Ordered. EDMS 03:57 Cardiac Injury Profile Ordered. EDMS 03:57 Troponin Ordered. EDMS 03:57 -Blood Culture Ordered. EDMS 03:58 Chest, 1 View Ordered. EDMS 03:58 ECG WITH READING ER PHYS+CARDIAG ordered. EDMS 03:58 Venous Blood Gas (large pea green tube on ice) Ordered. EDMS 03:59 -Blood Culture (Adults Only), peripheral from different site, or from device/port/PICC ml3 etc. if present complete. 04:00 BLOOD CULTURES Ordered. EDMS 04:39 Basic Metabolic Profile Reviewed. mm11 04:39 Venous Blood Gas (large pea green tube on ice) Reviewed. mm11 04:39 B-Type Natiuretic Peptide Reviewed. mm11 04:39 Cardiac Injury Profile Reviewed. mm11 04:39 Troponin Reviewed. mm11 04:41 CT Chest Angio R/O PE Ordered. EDMS 04:41 CT ABD & PELVIS: IV Contrast Only Ordered. EDMS 04:42 CBC with Diff Reviewed. mm11 04:47 Pt & Aptt Ordered. EDMS 04:48 Financial registration complete. [facility] 04:50 LIVER PROFILE Ordered. EDMS 05:00 [facility] Payment Agreement was scanned into MED[employer] and attached to record. [facility] 05:39 Basic Metabolic Profile Reviewed. mm11 05:39 Pt & Aptt Reviewed. mm11 05:39 LIVER PROFILE Reviewed. mm11 05:39 Cardiac Injury Profile Reviewed. mm11 05:39 Troponin Reviewed. [facility] 13:05 T-Sheet-- Draft Copy was scanned into [employer] and attached to record. 08/23 12:00 ECG/EKG was scanned into [employer] and attached to record. 12:01 [place] Protocol was scanned into [employer] and attached to record. 12:01 Consents was scanned into [employer] and attached to record. 12:01 Radiology Report was scanned into [employer] and attached to record. 13:26 ED course: ashely fletcher faxed formal report of cta for fu mlg. ml 13:26 ED course: cxr also faxed to ashely matias. ml 13:27 ED course: also ct abd/p faxed to dr ana maria gomes. ml Signatures: Dispatcher MedHo EDME Ana Hernandez MD MD ml Knapp, Jean,RN RN Michelle Caldwell, Reg Reg gb Yoselin, TameraYaneth, Customer Experience Retail Clerk Unit ml3 Claudio Carrillo, DO 11 Sadaf Butcher RN RN mlc Hook, Sandra [facility] The chart was reviewed and I authenticate all verbal orders and agree with the evaluation and treatment provided.Corrections: (The following items were deleted from the chart) 08/22 04:50 04:47 LIVER PROFILE+LAB ordered. EDME EDMS Attachments: 05:00 [facility] Payment Agreement [facility] 13:05 T-Sheet-- Draft Copy 08/23 12:00 ECG/EKG gb Chart Complete MTDD
--- NOTE | 2016-09-03 09:57 | EDDOCDS ---
Nurse's Notes [facility] Name: Saroj Palma Age: 60 yrs Sex: Female : 1955 Arrival Date: 08/22/2016 Time: 03:14 Bed 3 Private MD: Suzy Cesar M. Diagnosis: Pleural effusion in other conditions classified elsewhere;Ascites Presentation: 08/22 03:18 Presenting complaint: EMS states: pt feeling SOB since noon 08/21/16. hx of pleural mlc effusion. EMS states pt was having "syncopal" episodes x2. SPO2 was 94% on RA. FS was 261. Adult Sepsis Screening: The patient does not have new or worsening altered mentation. Patient's respiratory rate is less than 22. Systolic blood pressure is greater than 100. Patient has a qSOFA score of 0- Negative Sepsis Screen. 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 Transition of care: patient was not received from another setting of care. 03:18 Acuity: [facility] [place] 03:18 Method Of Arrival: Ambulance [facility] [place] 03:18 Suicide/Homicide risk assessment- the patient denies having any suicidal and/or mlc homicidal ideations and does not present with any other emotional, behavioral or mental health complaints. Triage Assessment: 03:30 General: Appears in no apparent distress, comfortable, pt joking with staff, does not mlc appear to be distressed . Behavior is cooperative. Pain: Location: xyphoid area and mid-sternal area Pain At worst was 5 out of 10 on a pain scale. HIV screening NA for this visit Offered previously. The patient is triaged at the bedside. See Assessment in Nurses Notes section of ED record. Neurological: Level of Consciousness is awake, alert, obeys commands, Oriented to person, place, time. Cardiovascular: Rhythm is regular. Respiratory: Onset: The symptoms/episode began/occurred yesterday, Airway is patent Respiratory effort is even, unlabored, Respiratory pattern is regular. Derm: Skin is normal. Historical: - Allergies: Atacand (chest pain); candesartan; Hydrochlorothiazide (chest pain); - Home Meds: 1. aspirin 81 mg Oral chew 1 tab once daily 2. Calcium+D 500 mg(1,250mg) -200 unit oral tab twice a day 3. Lexapro 20 mg Oral tab 1 tab once daily 4. Novolog 100 unit/mL Sub-Q soln sliding scale 5. Lantus 100 unit/mL Sub-Q soln 64 unit twice a day 6. Iron CR 90mg Oral twice a day 7. spironolactone 25 mg Oral tab 1 tab 2 times per day 8. trazodone 50 mg Oral tab 1 tab nightly 9. Nexium 40 mg Oral cpDR 1 cap once daily 10. meclizine 25 mg Oral tab 1 tab 2 times per day 11. furosemide 40 mg Oral tab 1 tab 2 times per day - PMHx: Anxiety; Ascites; Cirrhosis; Diabetes - IDDM: controlled; GERD; Hypercholesterolemia; Hypertension; Pancreatitis; Vertigo; - PSHx: Hysterectomy; D & C; right knee surgery; left shoulder surgery; left elbow surgery; Hernia repair; Appendectomy; right shoulder; - Social history: Smoking status: Patient states was never smoker of tobacco. No barriers to communication noted, The patient speaks fluent Hebrew. - Family history: Not pertinent, No immediate family members are acutely ill. - : The pt / caregiver states he / she is not on anticoagulants. Home medication list is obtained from the patient, hint import data. - Exposure Risk Screening:: None identified. Screenin:32 Screening information is obtained from the patient. Fall risk: At risk due to SOB. mlc Assistance ADL's: requires no assistance with activities of daily living. Abuse/DV Screen: The patient / caregiver reports he/she is: not in a situation that causes fear, pain or injury. Nutritional screening: On diabetic diet. Advance Directives: Currently, there is no health care proxy. There is no active DNR order. There is no living will. There is no Power of Shop Supervisor. home support is adequate. Assessment: 03:50 General: Appears in no apparent distress, comfortable, Behavior is cooperative. mlc Neurological: Level of Consciousness is awake, alert, Oriented to person, place, time. Cardiovascular: Capillary refill < 3 seconds Heart tones S1 S2 present Rhythm is regular. Cardiovascular: Chest pain is located in substernal area radiates Does not radiate. is aggravated by breathing. Respiratory: Airway is patent Respiratory effort is even, unlabored, Respiratory pattern is regular, Breath sounds with crackles in right posterior lower lobe. GI: Abdomen is distended, Bowel sounds present X 4 quads. firm x4 quad. Derm: Skin is normal. 05:22 Reassessment: Patient appears in no apparent distress at this time. pt taken to and mlc returned from CT, tolerated well. pt SOB after moving from CT table. pt able to breath better after resting, SPO2 96% on 2L NC. 06:30 General: Appears in no apparent distress, comfortable. General: pt resting comfortably mlc on stretcher, awaiting Dr. Tom. Neurological: Level of Consciousness is awake, alert, Oriented to person, place, time. Respiratory: Airway is patent Respiratory effort is even, unlabored, Respiratory pattern is regular. 07:00 General: Dr. Tom at bedside. Pt sitting on side of bed with feet dangling, pt leaning mlc onto bedside table. . 07:07 General: Lidocaine administered by Dr. Tom, pt reports feeling like the room is mlc spinning, pt leaning to one side. pt closed eyes and leaning to left side. Dr. Tom unable to perform procedure. Vitals stable, resp easy/unlabored, SPO2 maintained. . 07:10 General: Pt aroused to minimal tactile stimulation. Pt resting on stretcher at this mlc time, vitals stable. Resp easy/unlabored. . 07:43 General: Appears presently resting quietly. no observed resp distress. conversing [facility] lengthy sentences without resp interruption. awaiting transportation from [facility].. 08:22 General: Appears continues to present without resp distress. [facility] Vital Signs: 03:28 BP 146 / 70; Pulse 90; Resp 20; Temp 97.4(O); Pulse Ox 95% on R/A; Weight 110.22 kg jmv (R); Height 5 ft. 1 in. (154.94 cm) (R); Pain 4/10; 03:36 Pulse 90 MON; Pulse Ox 57% ; mlc 03:36 BP 122 / 56 (auto/); mlc 03:51 Pulse 84 MON; Pulse Ox 94% ; mlc 03:51 BP 113 / 57 (auto/); mlc 04:06 Pulse 80 MON; Pulse Ox 94% ; mlc 04:06 BP 119 / 56 (auto/); mlc 04:21 BP 127 / 62 (auto/); mlc 04:21 Pulse 80 MON; mlc 04:36 BP 137 / 57 (auto/); mlc 04:36 Pulse 82 MON; Pulse Ox 96% ; mlc 04:51 Pulse 78 MON; Pulse Ox 96% ; mlc 04:51 BP 120 / 60 (auto/); mlc 05:06 BP 120 / 57 (auto/); mlc 05:06 Pulse 80 MON; mlc 05:21 BP 115 / 53 (auto/); mlc 05:21 Pulse 76 MON; Pulse Ox 99% ; mlc 05:36 BP 114 / 54 (auto/); mlc 05:36 Pulse 78 MON; Pulse Ox 97% ; 05:51 BP 113 / 58 (auto/); aug 18:51 Pulse 80 MON; Pulse Ox 96% ; aug 06:07 BP 102 / 58 (auto/); mlc 06:08 Temp 97.7(O); mlc 06:10 Pulse 79 MON; Pulse Ox 96% ; mlc 06:15 BP 106 / 53 (auto/); mlc 06:15 Pulse 79 MON; Pulse Ox 96% ; mlc 06:22 Pulse 79 MON; Pulse Ox 96% ; mlc 06:30 Pulse 81 MON; Pulse Ox 96% ; mlc 06:30 BP 110 / 56 (auto/); mlc 06:45 Pulse 80 MON; Pulse Ox 95% ; mlc 06:45 BP 127 / 56 (auto/); mlc 07:00 Pulse 82 MON; Pulse Ox 96% ; mlc 07:00 BP 123 / 58 (auto/); mlc 07:08 Pulse 83 MON; Pulse Ox 96% ; mlc 07:08 BP 113 / 55 (auto/); mlc 07:13 Pulse 74 MON; mlc 07:13 BP 101 / 57 (auto/); mlc 07:15 BP 111 / 77 (auto/); mlc 07:15 Pulse 71 MON; Pulse Ox 94% ; mlc 08:22 BP 123 / 55; Pulse 77; Resp 18; Temp 97.3; Pulse Ox 93% on R/A; k 03:28 Body Mass Index 45.91 (110.22 kg, 154.94 cm) [facility] Vitals: 03:30 Log In Time N/A - ambulance arrival. [facility] [place] ED Course: 03:15 Patient visited by Eleno Wyatt, Application Developer. ml3 03:15 Suzy Cesar is Private Physician. ml3 03:15 Sadaf Butcher,LIDYA is Primary Nurse. ml3 03:15 Patient moved to Waiting ml3 03:15 Patient moved to 10 ml3 03:23 Triage Initiated mlc 03:28 Pt greeted and oriented to ED. Patient advised of names of staff involved in care, jmmarian location of call constantino, wait times and NPO status. Patient has correct armband on for positive identification. Placed in gown. Bed in low position. Call light in reach. Side rails up X2. electrical journeyman on. Pulse ox on. NIBP on. 03:29 Patient visited by Darius Cates PCA. jmv 03:36 The patient / caregiver is instructed regarding the plan of care and ED course. mlc 03:37 Sharny Carrillo DO is Attending Physician. mm11 03:37 Patient visited by Sharyn Carrillo DO. mm11 03:50 Inserted saline lock: 20 gauge in left antecubital area and blood collected. The [facility] [place] patient tolerated the procedure well. 03:53 Patient visited by Sadaf Butcher RN. mlc 03:56 Patient visited by Sharyn Carrillo DO. mm11 04:06 Patient visited by Leona Santizo PCA. tip 04:06 EKG done. (by ED staff). Reviewed by Sharyn Carrillo DO. tip 04:21 Venous Blood Gas (large pea green tube on ice) Sent. mlc 04:21 BLOOD CULTURES Sent. mlc 04:50 LIVER PROFILE Sent. mlc 05:00 Patient name changed from Saroj\\S\\G\\S\\Palma\\S\\ to Saroj\\S\\Ankita\\S\\Palma. EDMS 05:00 [facility] Payment Agreement was scanned into [email or web address] and attached to record. slh 05:07 Patient visited by Leona Santizo PCA. tip 05:24 Patient visited by Sadaf Butcher RN. mlc 06:02 Patient visited by Sharyn Carrillo DO. mm11 06:04 Patient moved to 3 ml3 06:29 CT Chest Angio R/O PE Returned. EDMS 06:30 No procedures done that require assistance. mlc 06:43 Patient visited by Sadaf Butcher RN. mlc 06:51 CT ABD & PELVIS: IV Contrast Only Returned. EDMS 07:14 Szuy Cesar is Referral Physician. mm11 07:23 Primary Nurse role handed off by Sadaf Butcher RN deg 07:44 Patient visited by Sy Mix RN. jmk 08:15 Chest, 1 View Returned. EDMS 08:22 Discontinued lock intact, bleeding controlled, pressure dressing applied, No jmk redness/swelling at site. 09:46 EKG-ADULT Returned. EDMS 13:05 T-Sheet-- Draft Copy was scanned into [email or web address] and attached to record. 08/23 12:00 ECG/EKG was scanned into [employer] and attached to record. gb 12:01 [place] Protocol was scanned into [employer] and attached to record. gb 12:01 Consents was scanned into [employer] and attached to record. gb 12:01 Radiology Report was scanned into [employer] and attached to record. gb Attachments: 12:01 [place] Protocol gb 12:01 Consents gb Order Results: Lab Order: -Blood Culture; SPEC'M 08/22/16 03:45 Test: BLOOD CULTURE; Value: No growth after 72 hours . All specimens observed; Status: F Test: BLOOD CULTURE; Value: for 5 days. Results final at that time.; Status: F Test: BLOOD CULTURE; Status: F Test: BLOOD CULTURE; Value: No growth after 48 hours . All specimens observed; Status: F Test: BLOOD CULTURE; Value: for 5 days. Results final at that time.; Status: F Test: BLOOD CULTURE; Status: F Test: BLOOD CULTURE; Value: No growth after 24 hours . All specimens observed; Status: F Test: BLOOD CULTURE; Value: for 5 days. Results final at that time.; Status: F Test: BLOOD CULTURE; Value: NO GROWTH AFTER 5 DAYS; Status: F Lab Order: B-Type Natiuretic Peptide; SPEC'M 08/22/16 03:45 Test: BRAIN NATRIURETIC PEPTIDE; Value: 14.0; Range: <100; Units: PG/ML; Status: F Lab Order: Basic Metabolic Profile; SPEC'M 08/22/16 03:45 Test: GLUCOSE, FASTING; Value: 244; Range: 80-110; Abnormal: Above high normal; Units: MG/DL; Status: F Test: BLOOD UREA NITROGEN; Value: 8; Range: 7-18; Units: MG/DL; Status: F Test: CREATININE FOR GFR; Value: 0.94; Range: 0.55-1.02; Units: MG/DL; Status: F Test: GLOMERULAR FILTRATION RATE; Value: > 60.0; Range: >45; Status: F Test: SODIUM LEVEL; Value: 146; Range: 136-145; Abnormal: Above high normal; Units: MEQ/L; Status: F Test: POTASSIUM SERUM; Value: 3.4; Range: 3.5-5.1; Abnormal: Below low normal; Units: MEQ/L; Status: F Test: CHLORIDE LEVEL; Value: 105; Range: 98-107; Units: MEQ/L; Status: F Test: CARBON DIOXIDE LEVEL; Value: 29; Range: 21-32; Units: MEQ/L; Status: F Test: ANION GAP; Value: 12; Range: 8-16; Units: MEQ/L; Status: F Test: CALCIUM LEVEL; Value: 8.3; Range: 8.8-10.2; Abnormal: Below low normal; Units: MG/DL; Status: F Test Note: ; Units are mL/min/1.73 m2 Chronic Kidney Disease Staging per NKF: Stage I & II GFR >=60 Normal to Mildly Decreased Stage III GFR 30-59 Moderately Decreased Stage IV GFR 15-29 Severely Decreased Stage V GFR <15 Very Little GFR Left ESRD GFR <15 on TEMPORARY OFFICE ASSISTANT Lab Order: CBC with Diff; SPEC'M 08/22/16 03:45 Test: WHITE BLOOD COUNT; Value: 3.1; Range: 4.0-10.0; Abnormal: Below low normal; Units: K/mm3; Status: F Test: RED BLOOD COUNT; Value: 4.42; Range: 4.00-5.40; Units: M/mm3; Status: F Test: HEMOGLOBIN; Value: 14.1; Range: 12.0-16.0; Units: g/dl; Status: F Test: HEMATOCRIT; Value: 41.7; Range: 36.0-47.0; Units: %; Status: F Test: MEAN CORPUSCULAR VOLUME; Value: 94.5; Range: 80.0-96.0; Units: fl; Status: F Test: MEAN CORPUSCULAR HEMOGLOBIN; Value: 31.9; Range: 27.0-33.0; Units: pg; Status: F Test: MEAN CORPUSCULAR HGB CONC; Value: 33.8; Range: 32.0-36.5; Units: g/dl; Status: F Test: RED CELL DISTRIBUTION WIDTH; Value: 14.2; Range: 11.5-14.5; Units: %; Status: F Test: PLATELET COUNT, AUTOMATED; Value: 61; Range: 150-450; Abnormal: Below low normal; Units: k/mm3; Status: F Test: NEUTROPHILS %; Value: 58.2; Range: 36.0-66.0; Units: %; Status: F Test: LYMPH %; Value: 27.5; Range: 24.0-44.0; Units: %; Status: F Test: MONO %; Value: 7.0; Range: 0.0-5.0; Abnormal: Above high normal; Units: %; Status: F Test: EOS %; Value: 3.4; Range: 0.0-3.0; Abnormal: Above high normal; Units: %; Status: F Test: BASO %; Value: 0.9; Range: 0.0-1.0; Units: %; Status: F Test: LARGE UNSTAINED CELL %; Value: 3.0; Range: 0.0-4.0; Units: %; Status: F Test: NEUTROPHILS #; Value: 1.8; Range: 1.8-7.7; Units: K/mm3; Status: F Test: LYMPH #; Value: 0.9; Range: 1.5-4.5; Abnormal: Below low normal; Units: K/mm3; Status: F Test: MONO #; Value: 0.2; Range: 0.0-0.8; Units: K/mm3; Status: F Test: EOS #; Value: 0.1; Range: 0.0-0.50; Units: K/mm3; Status: F Test: BASO #; Value: 0.0; Range: 0.0-0.2; Units: K/mm3; Status: F Test: LARGE UNSTAINED CELL #; Value: 0.1; Range: 0.0-0.4; Units: K/mm3; Status: F Lab Order: Cardiac Injury Profile; SPEC'M 08/22/16 03:45 Test: CPK CREATINE PHOSPHOKINASE; Value: 81; Range: 26-192; Units: U/L; Status: F Test: CK-MB VALUE MASS; Value: 1.0; Range: 0.0-3.6; Units: NG/ML; Status: F Test: MB/CK RELATIVE INDEX; Value: 1.23; Range: < OR =4; Status: F Test Note: ; DIAGNOSIS CRITERIA MMB ng/ml Relative Index (RI) NON-AMI < or = 5 N/A RINCON ZONE > 5 < or = 4 AMI > 5 > 4 Lab Order: Troponin; SPEC'M 08/22/16 03:45 Test: TROPONIN I; Value: < 0.02; Range: < 0.10; Units: NG/ML; Status: F Test Note: ; Troponin I Reference Interval for [employer] LOCI: 99th Percentile= 0.00-0.045 ng/ml Risk Stratification: <= 0.10 ng/ml Decreased Risk for Adverse Clinical Events. 0.10-1.50 ng/ml Increased Risk for Adverse Clinical Events. Evaluation of additional criterion and/or repeat testing in 2-6 hours is suggested to rule out myocardial damage. >= 1.50 ng/ml Indicative of Myocardial Injury. Lab Order: Venous Blood Gas (large pea green tube on ice); [facility] 08/22/16 04:09 Test: VENOUS PH; Value: 7.513; Range: 7.330-7.430; Abnormal: Above high normal; Units: UNITS; Status: F Test: VENOUS PARTIAL PRESSURE CO2; Value: 37.0; Range: 38.0-50.0; Abnormal: Below low normal; Units: mmHg; Status: F Test: VENOUS PARTIAL PRESSURE O2; Value: 87.7; Range: 30.0-50.0; Abnormal: Above high normal; Units: mmHg; Status: F Test: VENOUS TOTAL CO2; Value: 30.2; Range: 24.0-28.0; Abnormal: Above high normal; Units: MEQ/L; Status: F Test: VENOUS HCO3; Value: 29.1; Range: 23.0-27.0; Abnormal: Above high normal; Units: MEQ/L; Status: F Test: VENOUS BASE EXCESS; Value: 6.0; Range: -2.0-2.0; Abnormal: Above high normal; Status: F Test: VENOUS STANDARD HCO3; Value: 29.9; Units: MEQ/L; Status: F Test: VENOUS O2 SATURATION; Value: 97.2; Range: 60.0-80.0; Abnormal: Above high normal; Units: %; Status: F Lab Order: BLOOD CULTURES; [facility] 08/22/16 04:09 Test: BLOOD CULTURE; Value: No growth after 72 hours . All specimens observed; Status: F Test: BLOOD CULTURE; Value: for 5 days. Results final at that time.; Status: F Test: BLOOD CULTURE; Status: F Test: BLOOD CULTURE; Value: No growth after 48 hours . All specimens observed; Status: F Test: BLOOD CULTURE; Value: for 5 days. Results final at that time.; Status: F Test: BLOOD CULTURE; Status: F Test: BLOOD CULTURE; Value: No growth after 24 hours . All specimens observed; Status: F Test: BLOOD CULTURE; Value: for 5 days. Results final at that time.; Status: F Test: BLOOD CULTURE; Value: NO GROWTH AFTER 5 DAYS; Status: F Lab Order: Pt & Aptt; [facility] 08/22/16 03:44 Test: PROTHROMBIN TIME; Value: 15.3; Range: 12.3-14.5; Abnormal: Above high normal; Units: SECONDS; Status: F Test: INR; Value: 1.20; Status: F Test: PARTIAL THROMBOPLASTIN TIME; Value: 27.6; Range: 26.6-37.1; Units: SECONDS; Status: F Test Note: ; THERAPUTIC HUMAN INR VALUES INDICATIONS NORMAL RANGES PROPHYLAXIS/TREATMENT OF: VENOUS THROMBOSIS 2.0-3.0 PULMONARY EMBOLISM 2.0-3.0 PREVENTION OF SYSTEMIC EMBOLISM FROM: TISSUE HEART VALVES 2.0-3.0 ACUTE MYOCARDIAL INFARCTION 2.0-3.0 VALVULAR HEART DISEASE 2.0-3.0 ATRIAL FIBRILLATION 2.0-3.0 MECHANICAL VALVES(HIGH RISK) 2.5-3.5 RECURRENT MYOCARDIAL INFARCTION 2.5-3.5 Lab Order: LIVER PROFILE; SPEC'M 08/22/16 03:45 Test: AST/SGOT; Value: 42; Range: 15-37; Abnormal: Above high normal; Units: U/L; Status: F Test: ALT/SGPT; Value: 31; Range: 12-78; Units: U/L; Status: F Test: ALKALINE PHOSPHATASE; Value: 209; Range: 45-117; Abnormal: Above high normal; Units: U/L; Status: F Test: BILIRUBIN,TOTAL; Value: 0.5; Range: 0.2-1.0; Units: MG/DL; Status: F Test: BILIRUBIN,DIRECT; Value: 0.1; Range: 0.0-0.2; Units: MG/DL; Status: F Test: TOTAL PROTEIN; Value: 7.3; Range: 6.4-8.2; Units: GM/DL; Status: F Test: ALBUMIN; Value: 3.2; Range: 3.2-5.2; Units: GM/DL; Status: F Test: ALBUMIN/GLOBULIN RATIO; Value: 0.78; Range: 1.00-1.93; Abnormal: Below low normal; Status: F Radiology Order: Chest, 1 View Test: Chest, 1 View REASON FOR EXAMINATION: Shortness of Breath; AP portable sitting chest radiograph 08/22/2016; ; Indication: Shortness of breath; ; Comparison: AP supine chest with bilateral rib series 07/08/2016, CTA chest also; performed 08/22/2016; ; Findings: The cardiomediastinal silhouette is within normal limits. There is a; [id number] right pleural effusion with right basilar parenchymal disease; compatible with compressive atelectasis. Mild atelectatic changes are seen in; the left base. The bones and soft tissues are grossly normal.; ; Impression:; ; Moderate to large right pleural effusion with moderate right lower lobe; compressive atelectasis. Mild left basilar atelectatic changes .; ; ; ; ; ; ; Signed by; Tena Sosa MD 08/22/2016 07:57 A; Radiology Order: EKG-ADULT Test: EKG-ADULT REASON FOR EXAMINATION: Shortness of Breath; Stationary ECG Study; [facility] - ED; ; Test Date: 2016-08-22; Pat Name: SAROJ PALMA Department:; Room: -; Gender: F Casting Coordinator: dary; : 1955 Requested By: SHARYN Casey; Order Number: [id number] Reading MD: Bre Lamar; Measurements; Intervals [place]; Rate: 82 P: 40; UT: 140 QRS: -18; QRSD: 107 T: 15; QT: 398; QTc: 468; Interpretive Statements; SINUS RHYTHM; NONSPECIFIC T-WAVE ABNORMALITY; PRWP; SIMILAR 07/05/16; Electronically Signed On 08-22-2016 9:29:37 EST by Bre Lamar; Radiology Order: CT Chest Angio R/O PE Test: CT Chest Angio R/O PE REASON FOR EXAMINATION: Shortness of Breath; ; CLINICAL HISTORY: Dyspnea, exclude PE.; TECHNIQUE: Multiple incremental axial, coronal and oblique images are obtained from the thoracic inle; t to the upper abdomen. Intravenous contrast material was administered as per pulmonary embolism prot; ocol.; COMMENTS:; Moderate size right pleural effusion. Passive atelectatic airspace disease of the right lower lobe. M; ild cardiomegaly.; There is excellent opacification of pulmonary arterial system without evidence for pulmonary embolism; . Aorta is of normal caliber without evidence for dissection or aneurysm.; There is no evidence of hilar or mediastinal lymphadenopathy.; Images of the upper abdomen demonstrate no evidence of adrenal mass.; The bony structures are free of lytic or blastic lesions.; IMPRESSION:; No evidence for pulmonary embolism.; Moderate right pleural effusion.; Passive atelectatic airspace disease of the right lower lobe.; Mild mediastinal shift to the left side.; Thank you for your kind referral of this patient.; ; Radiology Order: CT ABD & PELVIS: IV Contrast Only Test: CT ABD & PELVIS: IV Contrast Only REASON FOR EXAMINATION: ASCITES; ; CLINICAL HISTORY: Abdominal pain.; TECHNIQUE: Multiple axial, sagittal and coronal CT images were obtained through the abdomen and pelvi; s after administration of intravenous contrast material.; COMMENTS:; There is diffuse irregular hepatic contour.; Mild splenomegaly. There is no intra or extrahepatic biliary ductal dilatation.; The gallbladder contains multiple gallstones. The pancreas is of normal contour and attenuation chayo; cteristics. There is no evidence of adrenal mass.; Both kidneys demonstrate prompt and equal nephrograms. The kidneys are normal in size, shape and conf; iguration. There is no evidence of renal or ureteral mass. No renal or ureteral calculi are identifie; d. There is no hydroureter or hydronephrosis.; No evidence for appendicitis. No evidence for small or large bowel obstruction. Diffuse thickening; of the stomach and the duodenum. Mildly fluid-filled small bowels.; There is no evidence of intrinsic or extrinsic bladder mass. Moderate large fecal stasis. Uncomplicat; ed clonic diverticulosis. Central mesenteric panniculitis.; The bony structures are free of lytic or blastic lesions. Multilevel degenerative changes are seen in; volving the thoracolumbar spine. Scattered calcifications are seen involving the aorta and major bran; ches compatible with atherosclerosis.; IMPRESSION:; Parenchymal liver disease.; Portal hypertension.; Ascites.; Central mesenteric panniculitis.; Gastroduodenitis.; Constipation.; Cholelithiasis.; Thickened gallbladder. This can be secondary to inflammatory pathology, ascites or parenchymal liver; disease.; Mildly thickened bladder.; Thank you for your kind referral of this patient.; ; Outcome: 08/22 05:24 CT Study completed. [facility] [place] 07:15 Discharge ordered by Provider. mm11 08:22 Discharge Assessment: Patient awake, alert and oriented x 3. No cognitive and/or k functional deficits noted. Patient verbalized understanding of disposition instructions. patient administered narcotics - no. The following High Risk Discharge criteria are identified: None. Discharged to home ambulatory. Condition: good. Discharge instructions given to patient, Instructed on discharge instructions, follow up and referral plans. medication usage, Demonstrated understanding of instructions, medications, Pt was receptive of discharge instructions/ teaching. Property :Personal belongings accompany Pt. 08:24 Patient left the ED. [facility] Signatures: Dispatcher [employer] EDMS Sherrill Willard, Application Developer Unit Sy Murdock RN RN jmk Newman, Jill New, RN RN jan Barnhardt, Gloria, Reg Reg garrett YoselinTamera alonsoYaneth, Application Developer Unit ml3 Sharyn Carrillo, DO mm11 Leona Santizo, BRAID PATTERN SETTER BRAID PATTERN SETTER Sadaf Em,RN Adry Silverio Jose, BRAID PATTERN SETTER BRAID PATTERN SETTER [facility] Corrections: (The following items were deleted from the chart) 04:50 04:49 LIVER PROFILE+LAB sent. [facility] [place] EDTN Chart Complete MTDD
== END 2016-08-22 08:24 | disposition home or self-care (01) ==
LOC: M ED 03:14
DX: J90 Pleural effusion, not elsewhere classified (principal); R06.02 Shortness of breath; I10 Essential (primary) hypertension; F41.9 Anxiety disorder, unspecified; E11.9 Type 2 diabetes mellitus without complications; K21.9 Gastro-esophageal reflux disease without esophagitis; E78.00 Pure hypercholesterolemia, unspecified; K74.60 Unspecified cirrhosis of liver; R18.8 Other ascites; Z90.79 Acquired absence of other genital organ(s); Z90.89 Acquired absence of other organs; Z79.4 Long term (current) use of insulin; Z79.82 Long term (current) use of aspirin; Z79.899 Other long term (current) drug therapy
CPT/HCPCS: 36415; 36600; 71010; 71275; 74177; 80048; 80076; 82550; 82553; 82803; 83880; 85025; 85610; 85730; 87040; 93005; 93041; 99285; Q9967

== ENCOUNTER 2016-08-26 15:43 | Inpatient (IN) | payer OTHER ==
[~2016-08-26] VITALS: Ht 154.9 cm; Wt 110.9 kg
[2016-08-26] VITALS (14 sets, daily range): BP systolic 115–150; BP diastolic 60–76
--- NOTE | 2016-08-26 16:15 | REP ---
Clinical: Shortness of breath. Comparison: 08/22/2016. Findings: Large right pleural effusion has increased since prior examination. Underlying passive atelectasis suggested. Aerated lung sweet appear clear. Visualized portions of the cardiac silhouette appears stable. No pneumothorax. Impression: Large right pleural effusion increased from prior examination. Signed by Pk Hansen MD 08/26/2016 04:06 P
[2016-08-26 16:17] LABS: ABG BASE EXCESS 2.2 (-2.0-2.0); ABG DEVICE NASAL CANN; ABG HCO3 25.1 MEQ/L (22.0-26.0); ABG PARTIAL PRESSURE O2 90.2 mmHg (75.0-100.0); ABG STANDARD HCO3 26.4 MEQ/L (22.0-26.0); ABG TOTAL CO2 26.1 MEQ/L (23.0-31.0); ABG pH (ARTERIAL) 7.486 UNITS (7.350-7.450)
[2016-08-26 16:29] LABS: BASO # 0.1 K/mm3 (0.0-0.2); BASO % 1.3 % (0.0-1.0); EOS # 0.1 K/mm3 (0.0-0.50); EOS % 3.3 % (0.0-3.0); LARGE UNSTAINED CELL # 0.1 K/mm3 (0.0-0.4); LARGE UNSTAINED CELL % 1.4 % (0.0-4.0); LYMPH % 23.2 % (24.0-44.0); MEAN CORPUSCULAR HEMOGLOBIN 31.3 pg (27.0-33.0); MEAN CORPUSCULAR HGB CONC 33.3 g/dl (32.0-36.5); MEAN CORPUSCULAR VOLUME 93.9 fl (80.0-96.0); MONO # 0.2 K/mm3 (0.0-0.8); MONO % 5.3 % (0.0-5.0); NEUTROPHILS # 2.8 K/mm3 (1.8-7.7); NEUTROPHILS % 65.4 % (36.0-66.0); PLATELET COUNT, AUTOMATED 74 k/mm3 (150-450); RED CELL DISTRIBUTION WIDTH 14.4 % (11.5-14.5); WHITE BLOOD COUNT 4.3 K/mm3 (4.0-10.0)
[2016-08-26 16:32] LABS: INR 1.2
[2016-08-26 16:48] LABS: ALBUMIN 3.2 GM/DL (3.2-5.2); ALBUMIN/GLOBULIN RATIO 0.76 (1.00-1.93); ALKALINE PHOSPHATASE 229 U/L (45-117); ALT/SGPT 34 U/L (12-78); ANION GAP 8 MEQ/L (8-16); AST/SGOT 40 U/L (15-37); BILIRUBIN,DIRECT 0.2 MG/DL (0.0-0.2); BILIRUBIN,TOTAL 0.5 MG/DL (0.2-1.0); BLOOD UREA NITROGEN 12 MG/DL (7-18); CALCIUM LEVEL 8.7 MG/DL (8.8-10.2); CARBON DIOXIDE LEVEL 27 MEQ/L (21-32); CHLORIDE LEVEL 110 MEQ/L (98-107); CREATININE FOR GFR 0.85 MG/DL (0.55-1.02); GLOMERULAR FILTRATION RATE > 60.0 (>45); GLUCOSE, FASTING 113 MG/DL (80-110); POTASSIUM SERUM 3.6 MEQ/L (3.5-5.1); SODIUM LEVEL 145 MEQ/L (136-145); TOTAL PROTEIN 7.4 GM/DL (6.4-8.2)
[2016-08-26] MEDS ORDERED: ISOVUE-370 76% 100ML VIAL (Q9967) As Ordered ONE (17:05)
[2016-08-26] MEDS ORDERED: ONDANSETRON 4MG/2ML VIAL (J2405) IV PRN (17:15)
[2016-08-26] MEDS ORDERED: GLUCAGON FOR INJ 1 MG VIAL (J1610) SC PRN (17:15)
[2016-08-26] MEDS ORDERED: DEXTROSE 50% 50 ML SYRINGE IV PRN (17:15)
[2016-08-26] MEDS ORDERED: GLUCOSE 4 GM CHEW TABLET PO PRN (17:15)
[2016-08-26] MEDS ORDERED: BISACODYL 5 MG TAB PO PRN (17:15)
[2016-08-26] MEDS ORDERED: ACETAMINOPHEN TAB 650MG DOSE (2X325MG) PO PRN (17:15)
--- NOTE | 2016-08-26 17:20 | ECGEPIP ---
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
[2016-08-26] MEDS ORDERED: LEVALBUTEROL 1.25 MG/0.5 ML CONCENTRATE NEB NEB PRN (17:30)
[2016-08-26] MEDS ORDERED: PERCOCET 5MG/325MG TAB PO PRN (17:30)
[2016-08-26] MEDS: HumaLOG INSULIN (NovoLOG) PER UNIT SC SCH ×2 (17:30→20:45)
[2016-08-26] MEDS ORDERED: NORCO, ANEXSIA 5/325MG TABLET (HYDROcodone/ACETAMINOPHEN) PO PRN (17:30)
[2016-08-26] MEDS ORDERED: FURO40TA2 PO (17:39)
[2016-08-26] MEDS ORDERED: FLUMAZENIL 0.5 MG/5 ML VIAL As Ordered ONE (17:39)
[2016-08-26] MEDS ORDERED: MIDAZOLAM INJ 2 MG/2 ML VIAL (J2250) As Ordered ONE (17:40)
[2016-08-26] MEDS ORDERED: LIDOCAINE 1% MDV 20ML VIAL As Ordered ONE (17:41)
[2016-08-26] MEDS ORDERED: LIDOCAINE 1% MDV 20ML VIAL SC ONE (17:45)
--- NOTE | 2016-08-26 17:47 | REP ---
Clinical: Shortness of breath and pleural effusion. Comparison: 08/22/2016. Technique: Axial contrast enhanced images from the thoracic inlet to the upper abdomen using 100 ml Isovue 370 intravenous contrast material with coronal and sagittal re-formations. Findings: Large right pleural effusion increased from prior examination with increasing areas of partial collapse involving the right upper lobe and right middle lobe as well as complete collapse to the right lower lobe. The left hemithorax is relatively well aerated and clear. Subcentimeter lymph nodes in the mediastinum are nonspecific and possibly reactive. Thoracic aorta, heart, and pericardium appear normal. Surrounding musculoskeletal structures demonstrate age-related changes without focal osseous abnormality. Limited evaluation of the upper abdomen demonstrates ascites and cholelithiasis as well as suspected splenomegaly and recanalized umbilical vein to the serious with suspected portosystemic collateral circulation suggesting possible cirrhosis. Impression: Large right pleural effusion increased from prior examination with partial collapse to the right upper lobe, right middle lobe and complete collapse of the right lower lobe. Upper abdomen demonstrates ascites, splenomegaly, cholelithiasis, and findings to suggest cirrhosis. Signed by Pk Hansen MD 08/26/2016 05:37 P
--- NOTE | 2016-08-26 17:49 | EDDOCDS ---
Nurse's Notes [facility] [employer] Name: Olga Palma Age: 60 yrs Sex: Female : 1955 Arrival Date: 08/26/2016 Time: 15:43 Bed 2 Private MD: Suzy Cesar M. Diagnosis: Pleural effusion in conditions classified elsewhere Presentation: 08/26 15:48 Presenting complaint: EMS states: Patient seen Monday for pleural effusion. Seen at [facility] for weight check. Patient having exertion dyspnea. Patient on 2 liters at office, 95%. EMS placed on 5 liters. 20 gauge left hand. Patient has cirrhosis in liver. Suicide/Homicide risk assessment- the patient denies having any suicidal and/or homicidal ideations and does not present with any other emotional, behavioral or mental health complaints. Status: Patient is not a client service consultant or dependent. Transition of care: patient was not received from another setting of care. 15:48 Acuity: CIARA Level 3 [facility] 15:48 Method Of Arrival: Ambulance [facility] 17:39 Adult Sepsis Screening: The patient does not have new or worsening altered mentation. pml Patient has a respiratory rate of greater than or equal to 22 (1 point). Systolic blood pressure is greater than 100. Patient has a qSOFA score of 1- Negative Sepsis Screen. Triage Assessment: 15:51 General: Appears uncomfortable, Behavior is appropriate for age, cooperative. Pain: jmb Denies pain. HIV screening NA for this visit Offered previously. Neurological: Level of Consciousness is awake, alert, obeys commands, Oriented to person, place, time, Speech is normal, Facial symmetry appears normal, Facial symmetry: tongue is midline. Cardiovascular: Capillary refill < 3 seconds Heart tones present Pulses are all present. Rhythm is. Respiratory: Onset: The symptoms/episode began/occurred gradually, Airway is patent Respiratory effort is labored, Respiratory pattern is regular, Breath sounds are diminished in right upper lobe, right middle lobe, right lower lobe, right posterior upper lobe, right posterior middle lobe and right posterior lower lobe. GI: Abdomen is obese, Bowel sounds present X 4 quads. Abd is soft X 4 quads. Derm: Skin is pink, warm & dry. Musculoskeletal: Range of motion intact in all extremities. Historical: - Allergies: Atacand (chest pain); candesartan; Hydrochlorothiazide (chest pain); - Home Meds: 1. aspirin 81 mg Oral chew 1 tab once daily 2. Calcium+D 500 mg(1,250mg) -200 unit oral tab twice a day 3. furosemide 40 mg Oral tab 1 tab 2 times per day 4. Iron CR 90mg Oral twice a day 5. Lantus 100 unit/mL Sub-Q soln 64 unit twice a day 6. Lexapro 20 mg Oral tab 1 tab once daily 7. meclizine 25 mg Oral tab 1 tab 2 times per day 8. Nexium 40 mg Oral cpDR 1 cap once daily 9. Novolog 100 unit/mL Sub-Q soln sliding scale 10. spironolactone 25 mg Oral tab 1 tab 2 times per day 11. trazodone 50 mg Oral tab 1 tab nightly - PMHx: Anxiety; Ascites; Cirrhosis; Diabetes - IDDM: controlled; GERD; Hypercholesterolemia; Hypertension; Pancreatitis; Vertigo; - PSHx: Hysterectomy; D & C; right knee surgery; left shoulder surgery; left elbow surgery; Hernia repair; Appendectomy; right shoulder; - Social history: Smoking status: Patient states was never smoker of tobacco. No barriers to communication noted, The patient speaks fluent Greenlandic, Speaks appropriately for age. - Family history: Not pertinent. - : The pt / caregiver states he / she is not on anticoagulants. Home medication list is obtained from the patient. - Exposure Risk Screening:: None identified. Screenin:20 Screening information is obtained from the patient. Fall risk: No risks identified. bcj Assistance ADL's: requires no assistance with activities of daily living. Abuse/DV Screen: The patient / caregiver reports he/she is: not in a situation that causes fear, pain or injury. Nutritional screening: No deficits noted. Advance Directives: Currently, there is no health care proxy. home support is adequate. 16:41 Infection Control. lbd Assessment: 16:20 General: Appears ill, Behavior is cooperative. Pain: Denies pain. Cardiovascular: bcj Rhythm is sinus tachycardia Chest pain is denied. Respiratory: Airway is patent Respiratory effort is even, labored, Respiratory pattern is tachypnea Breath sounds are diminished in right upper lobe, right middle lobe and right lower lobe Reports shortness of breath at rest. Derm: Skin is dusky, pink. 17:37 General: Appears in no apparent distress, comfortable, Behavior is cooperative. Pain: pml Denies pain. Cardiovascular: Rhythm is sinus tachycardia Chest pain is denied. Respiratory: Airway is patent Respiratory effort is even, labored, Respiratory pattern is regular, Breath sounds are diminished in right upper lobe, right middle lobe and right lower lobe. Derm: Skin is pink, warm & dry. dusky. Vital Signs: 15:51 BP 130 / 77; Pulse 103; Resp 22; Weight 112.49 kg (R); Height 5 ft. 1 in. (154.94 cm) jmb (R); Pain 0/10; 15:59 Temp 98.9; Pulse Ox 96% on 5 lpm NC; jmb 17:35 BP 146 / 83; Pulse 104; Resp 22; Pulse Ox 93% on 4 lpm NC; Pain 0/10; pml 15:51 Body Mass Index 46.86 (112.49 kg, 154.94 cm) jmb Vitals: 15:51 Log In Time N/A - ambulance arrival. b 16:20 Refer to monitor trend for complete vital signs trends. [facility] ED Course: 15:44 Patient visited by Lita Guzman, Legal Compliance Officer. lbd 15:44 Patient moved to Waiting lbd 15:45 Suzy Cesar is Private Physician. lbd 15:45 Baljinder Parker, RN is Primary Nurse. lbd 15:45 Bre Lamar MD is Attending Physician. sd1 15:45 Patient moved to 2 lbd 15:49 Triage Initiated jmb 15:51 Patient visited by Bre Lamar MD. sd1 16:06 EKG done. (by ED staff). Reviewed by Bre Lamar MD. jlf 16:08 Patient visited by Alisha Carbone PCA. jlf 16:08 Patient visited by Alisha Carbone PCA. jlf 16:13 -Arterial Blood Gas Sent. cs15 16:20 No apparent distress. Resting quietly. awaiting re-evaluation by ER physician. [facility] 16:20 The patient / caregiver is instructed regarding the plan of care and ED course. Patient j has correct armband on for positive identification. Placed in gown. Bed in low position. Call light in reach. Side rails up X2. Adult w/ patient. telemetry monitor on. Pulse ox on. NIBP on. 16:20 Maintain field IV. Site clean & dry. Gauge & site: 20ga left hand. Labs drawn. (by ED bcj staff). Sent per order to lab. O2 via nasal cannula \T\ 4L/min. 16:22 Chest, 1 View Returned. EDMS 16:24 Patient visited by Baljinder Parker RN. bcj 16:25 LIVER PROFILE Sent. [facility] 16:44 [facility] Payment Agreement was scanned into [employer] and attached to record. zo 16:58 Patient visited by Alisha Carbone PCA. jlf 17:07 Rika Chauhan is Hospitalizing Provider. sd1 17:37 No apparent distress. Resting quietly. Awaiting bed assignment. pml 17:37 IV is intact. No procedures done that require assistance. pml RT: 16:13 ABG's drawn from right radial artery allens test done and positive pressure held for 5 cs15 minutes no bleeding noted pressure bandage applied specimen sent pt. tolerated well. O2 via nasal cannula \T\ 5L/min. Order Results: Lab Order: -Arterial Blood Gas; SPEC'M 08/26/16 16:11 Test: ABG pH (ARTERIAL); Value: 7.486; Range: 7.350-7.450; Abnormal: Above high normal; Units: UNITS; Status: F Test: ABG PARTIAL PRESSURE CO2; Value: 34.0; Range: 35.0-45.0; Abnormal: Below low normal; Units: mmHg; Status: F Test: ABG PARTIAL PRESSURE O2; Value: 90.2; Range: 75.0-100.0; Units: mmHg; Status: F Test: ABG TOTAL CO2; Value: 26.1; Range: 23.0-31.0; Units: MEQ/L; Status: F Test: ABG HCO3; Value: 25.1; Range: 22.0-26.0; Units: MEQ/L; Status: F Test: ABG BASE EXCESS; Value: 2.2; Range: -2.0-2.0; Abnormal: Above high normal; Status: F Test: ABG STANDARD HCO3; Value: 26.4; Range: 22.0-26.0; Abnormal: Above high normal; Units: MEQ/L; Status: F Test: ABG O2 SATURATION; Value: 97.7; Range: 95.0-99.0; Units: %; Status: F Test: ABG DEVICE; Value: NASAL JUDITH; Status: F Lab Order: B-Type Natiuretic Peptide; SPEC'M 08/26/16 16:11 Test: BRAIN NATRIURETIC PEPTIDE; Value: 31.1; Range: <100; Units: PG/ML; Status: F Lab Order: Basic Metabolic Profile; SPEC'M 08/26/16 16:10 Test: GLUCOSE, FASTING; Value: 113; Range: 80-110; Abnormal: Above high normal; Units: MG/DL; Status: F Test: BLOOD UREA NITROGEN; Value: 12; Range: 7-18; Units: MG/DL; Status: F Test: CREATININE FOR GFR; Value: 0.85; Range: 0.55-1.02; Units: MG/DL; Status: F Test: GLOMERULAR FILTRATION RATE; Value: > 60.0; Range: >45; Status: F Test: SODIUM LEVEL; Value: 145; Range: 136-145; Units: MEQ/L; Status: F Test: POTASSIUM SERUM; Value: 3.6; Range: 3.5-5.1; Units: MEQ/L; Status: F Test: CHLORIDE LEVEL; Value: 110; Range: 98-107; Abnormal: Above high normal; Units: MEQ/L; Status: F Test: CARBON DIOXIDE LEVEL; Value: 27; Range: 21-32; Units: MEQ/L; Status: F Test: ANION GAP; Value: 8; Range: 8-16; Units: MEQ/L; Status: F Test: CALCIUM LEVEL; Value: 8.7; Range: 8.8-10.2; Abnormal: Below low normal; Units: MG/DL; Status: F Test Note: ; Units are mL/min/1.73 m2 Chronic Kidney Disease Staging per NKF: Stage I & II GFR >=60 Normal to Mildly Decreased Stage III GFR 30-59 Moderately Decreased Stage IV GFR 15-29 Severely Decreased Stage V GFR <15 Very Little GFR Left ESRD GFR <15 on [employer] Lab Order: CBC with Diff; SPEC'M 08/26/16 16:11 Test: WHITE BLOOD COUNT; Value: 4.3; Range: 4.0-10.0; Units: K/mm3; Status: F Test: RED BLOOD COUNT; Value: 4.63; Range: 4.00-5.40; Units: M/mm3; Status: F Test: HEMOGLOBIN; Value: 14.5; Range: 12.0-16.0; Units: g/dl; Status: F Test: HEMATOCRIT; Value: 43.5; Range: 36.0-47.0; Units: %; Status: F Test: MEAN CORPUSCULAR VOLUME; Value: 93.9; Range: 80.0-96.0; Units: fl; Status: F Test: MEAN CORPUSCULAR HEMOGLOBIN; Value: 31.3; Range: 27.0-33.0; Units: pg; Status: F Test: MEAN CORPUSCULAR HGB CONC; Value: 33.3; Range: 32.0-36.5; Units: g/dl; Status: F Test: RED CELL DISTRIBUTION WIDTH; Value: 14.4; Range: 11.5-14.5; Units: %; Status: F Test: PLATELET COUNT, AUTOMATED; Value: 74; Range: 150-450; Abnormal: Below low normal; Units: k/mm3; Status: F Test: NEUTROPHILS %; Value: 65.4; Range: 36.0-66.0; Units: %; Status: F Test: LYMPH %; Value: 23.2; Range: 24.0-44.0; Abnormal: Below low normal; Units: %; Status: F Test: MONO %; Value: 5.3; Range: 0.0-5.0; Abnormal: Above high normal; Units: %; Status: F Test: EOS %; Value: 3.3; Range: 0.0-3.0; Abnormal: Above high normal; Units: %; Status: F Test: BASO %; Value: 1.3; Range: 0.0-1.0; Abnormal: Above high normal; Units: %; Status: F Test: LARGE UNSTAINED CELL %; Value: 1.4; Range: 0.0-4.0; Units: %; Status: F Test: NEUTROPHILS #; Value: 2.8; Range: 1.8-7.7; Units: K/mm3; Status: F Test: LYMPH #; Value: 1.0; Range: 1.5-4.5; Abnormal: Below low normal; Units: K/mm3; Status: F Test: MONO #; Value: 0.2; Range: 0.0-0.8; Units: K/mm3; Status: F Test: EOS #; Value: 0.1; Range: 0.0-0.50; Units: K/mm3; Status: F Test: BASO #; Value: 0.1; Range: 0.0-0.2; Units: K/mm3; Status: F Test: LARGE UNSTAINED CELL #; Value: 0.1; Range: 0.0-0.4; Units: K/mm3; Status: F Lab Order: Cardiac Injury Profile; [facility] 08/26/16 16:10 Test: CPK CREATINE PHOSPHOKINASE; Value: 49; Range: 26-192; Units: U/L; Status: F Test: CK-MB VALUE MASS; Value: 1.0; Range: 0.0-3.6; Units: NG/ML; Status: F Test: MB/CK RELATIVE INDEX; Value: 2.04; Range: < OR =4; Status: F Test Note: ; DIAGNOSIS CRITERIA MMB ng/ml Relative Index (RI) NON-AMI < or = 5 N/A RINCON ZONE > 5 < or = 4 AMI > 5 > 4 Lab Order: Troponin; [facility] 08/26/16 16:10 Test: TROPONIN I; Value: < 0.02; Range: < 0.10; Units: NG/ML; Status: F Test Note: ; Troponin I Reference Interval for [employer] LOCI: 99th Percentile= 0.00-0.045 ng/ml Risk Stratification: <= 0.10 ng/ml Decreased Risk for Adverse Clinical Events. 0.10-1.50 ng/ml Increased Risk for Adverse Clinical Events. Evaluation of additional criterion and/or repeat testing in 2-6 hours is suggested to rule out myocardial damage. >= 1.50 ng/ml Indicative of Myocardial Injury. Lab Order: PT/INR; [facility] 08/26/16 16:10 Test: PROTHROMBIN TIME; Value: 15.3; Range: 12.3-14.5; Abnormal: Above high normal; Units: SECONDS; Status: F Test: INR; Value: 1.20; Status: F Test Note: ; THERAPUTIC HUMAN INR VALUES INDICATIONS NORMAL RANGES PROPHYLAXIS/TREATMENT OF: VENOUS THROMBOSIS 2.0-3.0 PULMONARY EMBOLISM 2.0-3.0 PREVENTION OF SYSTEMIC EMBOLISM FROM: TISSUE HEART VALVES 2.0-3.0 ACUTE MYOCARDIAL INFARCTION 2.0-3.0 VALVULAR HEART DISEASE 2.0-3.0 ATRIAL FIBRILLATION 2.0-3.0 MECHANICAL VALVES(HIGH RISK) 2.5-3.5 RECURRENT MYOCARDIAL INFARCTION 2.5-3.5 Lab Order: LIVER PROFILE; [facility] 08/26/16 16:10 Test: AST/SGOT; Value: 40; Range: 15-37; Abnormal: Above high normal; Units: U/L; Status: F Test: ALT/SGPT; Value: 34; Range: 12-78; Units: U/L; Status: F Test: ALKALINE PHOSPHATASE; Value: 229; Range: 45-117; Abnormal: Above high normal; Units: U/L; Status: F Test: BILIRUBIN,TOTAL; Value: 0.5; Range: 0.2-1.0; Units: MG/DL; Status: F Test: BILIRUBIN,DIRECT; Value: 0.2; Range: 0.0-0.2; Units: MG/DL; Status: F Test: TOTAL PROTEIN; Value: 7.4; Range: 6.4-8.2; Units: GM/DL; Status: F Test: ALBUMIN; Value: 3.2; Range: 3.2-5.2; Units: GM/DL; Status: F Test: ALBUMIN/GLOBULIN RATIO; Value: 0.76; Range: 1.00-1.93; Abnormal: Below low normal; Status: F Lab Order: HEMOGLOBIN A1C; [facility] 08/26/16 16:10 Test: HEMOGLOBIN A1c; Value: 7.8; Range: 4.5-6.2; Abnormal: Above high normal; Units: %; Status: F Test: ESTIMATED AVERAGE GLUCOSE; Value: 177; Range: 60-110; Abnormal: Above high normal; Units: MG/DL; Status: F Lab Order: LACTATE DEHYDROGENASE; [facility] 08/26/16 16:10 Test: LDH LACTATE DEHYDROGENASE; Value: 197; Range: 84-246; Units: U/L; Status: F Radiology Order: Chest, 1 View Test: Chest, 1 View REASON FOR EXAMINATION: Shortness of Breath; Clinical: Shortness of breath.; ; Comparison: 08/22/2016.; ; Findings:; Large right pleural effusion has increased since prior examination. Underlying; passive atelectasis suggested. Aerated lung sweet appear clear. Visualized; portions of the cardiac silhouette appears stable. No pneumothorax.; ; Impression:; Large right pleural effusion increased from prior examination.; ; ; Signed by; Pk Hansen MD 08/26/2016 04:06 P; Outcome: 17:08 Decision to Hospitalize by Provider. sd1 17:37 Discharge Assessment: patient administered narcotics - no. The following High Risk pml Discharge criteria are identified: None. Admitted to PCU accompanied by nurse, accompanied by tech, via stretcher, with oxygen, on monitor. Condition: stable. CT Study completed. Admission hand-off: Report called to Cheli Sosa. Property :Personal belongings accompany Pt. 17:47 Patient left the ED. jc4 Signatures: Dispatcher [employer] Bre Osborne MD MD sd1 Lita Guzman, Legal Compliance Officer Unit lbd Baljinder Parker, RN RN Damari Naik Jennifer, RN RN jc4 Constance Yao,RN RN Nadir Albarran,RN RN Alisha Smith, SENIOR ASSISTANT MANAGER SENIOR ASSISTANT MANAGER zacf Liam Quiñonez,RT RT cs15 MTDD
--- NOTE | 2016-08-26 17:49 | EDDOCDS ---
Physician Documentation [facility] Name: Olga Palma Age: 60 yrs Sex: Female : 1955 Arrival Date: 08/26/2016 Time: 15:43 Bed 2 Private MD: Suzy Cesar M. Disposition: 08/26/16 17:08 Hospitalization ordered by Rika Chauhan for Inpatient Admission. Preliminary diagnosis is Pleural effusion in conditions classified elsewhere. - [facility] - Status is Inpatient Admission. jc4 - Condition is Stable. - Problem is an acute exacerbation. - Symptoms are unchanged. Historical: - Allergies: Atacand (chest pain); candesartan; Hydrochlorothiazide (chest pain); - Home Meds: 1. aspirin 81 mg Oral chew 1 tab once daily 2. Calcium+D 500 mg(1,250mg) -200 unit oral tab twice a day 3. furosemide 40 mg Oral tab 1 tab 2 times per day 4. Iron CR 90mg Oral twice a day 5. Lantus 100 unit/mL Sub-Q soln 64 unit twice a day 6. Lexapro 20 mg Oral tab 1 tab once daily 7. meclizine 25 mg Oral tab 1 tab 2 times per day 8. Nexium 40 mg Oral cpDR 1 cap once daily 9. Novolog 100 unit/mL Sub-Q soln sliding scale 10. spironolactone 25 mg Oral tab 1 tab 2 times per day 11. trazodone 50 mg Oral tab 1 tab nightly - PMHx: Anxiety; Ascites; Cirrhosis; Diabetes - IDDM: controlled; GERD; Hypercholesterolemia; Hypertension; Pancreatitis; Vertigo; - PSHx: Hysterectomy; D & C; right knee surgery; left shoulder surgery; left elbow surgery; Hernia repair; Appendectomy; right shoulder; - Social history: Smoking status: Patient states was never smoker of tobacco. No barriers to communication noted, The patient speaks fluent Syriac, Speaks appropriately for age. - Family history: Not pertinent. - : The pt / caregiver states he / she is not on anticoagulants. Home medication list is obtained from the patient. - Exposure Risk Screening:: None identified. Vital Signs: 08/26 15:51 BP 130 / 77; Pulse 103; Resp 22; Weight 112.49 kg / 248 lbs (R); Height 5 ft. 1 in. jmb (154.94 cm) (R); Pain 0/10; 15:59 Temp 98.9; Pulse Ox 96% on 5 lpm NC; jmb 17:35 BP 146 / 83; Pulse 104; Resp 22; Pulse Ox 93% on 4 lpm NC; Pain 0/10; pml 15:51 Body Mass Index 46.86 (112.49 kg, 154.94 cm) [facility] MDM: 15:52 -Blood Culture (Adults Only), peripheral from different site, or from device/port/PICC sd1 etc. if present ordered. 15:52 Pan Dumper/Pulse Ox/q 15 min VS ordered. sd1 15:52 IV Saline Lock ordered. sd1 15:52 Oxygen at 4L/Min NC or Home dosage ordered. sd1 15:52 Rhythm Strip to chart ordered. sd1 15:53 -Arterial Blood Gas Ordered. EDMS 15:53 B-Type Natiuretic Peptide Ordered. EDMS 15:53 Basic Metabolic Profile Ordered. EDMS 15:53 CBC with Diff Ordered. EDMS 15:53 Cardiac Injury Profile Ordered. EDMS 15:53 Troponin Ordered. EDMS 15:53 -Blood Culture Ordered. EDMS 15:53 Chest, 1 View Ordered. EDMS 15:53 ECG WITH READING ER PHYS+CARDIAG ordered. EDMS 15:55 -Blood Culture (Adults Only), peripheral from different site, or from device/port/PICC lbd etc. if present complete. 16:06 BLOOD CULTURES Ordered. EDMS 16:19 PT/INR Ordered. EDMS 16:22 LIVER PROFILE Ordered. EDMS 16:43 Financial registration complete. zo 16:44 [facility] [place] was scanned into Free[employer] and attached to record. zo 17:01 -Arterial Blood Gas Reviewed. sd1 17:01 Basic Metabolic Profile Reviewed. sd1 17:01 CBC with Diff Reviewed. sd1 17:01 PT/INR Reviewed. sd1 17:01 LIVER PROFILE Reviewed. sd1 17:01 B-Type Natiuretic Peptide Reviewed. sd1 17:01 Cardiac Injury Profile Reviewed. sd1 17:01 Troponin Reviewed. sd1 17:01 Chest, 1 View Reviewed. sd1 17:03 Ammonia ([place] Tube on Ice, Not [place]) Ordered. EDMS 17:11 Admission / Observation Status ordered. EDMS 17:14 PHYSICAL THERAPY EVAL & TREAT ordered. EDMS 17:15 CT Chest With Contrast Ordered. EDMS 17:16 CELL COUNT PLEURAL FLUID Ordered. EDMS 17:16 TOTAL PROTEIN, BODY FLUID Ordered. EDMS 17:16 LDH, BODY FLUID Ordered. EDMS 17:16 GLUCOSE, BODY FLUID Ordered. EDMS 17:16 AMYLASE, BODY FLUID Ordered. EDMS 17:16 PH, BODY FLUID Ordered. EDMS 17:16 HEMOGLOBIN A1C Ordered. EDMS 17:17 AFB SMEAR & CULTURE Ordered. EDMS 17:17 BODY FLUID CULTURE AND GS Ordered. EDMS 17:17 FUNGUS SMEAR & CULTURE Ordered. EDMS 17:36 ARTERIAL BLOOD GAS Ordered. EDMS 17:37 Chest, 2 view PA, Lat Ordered. EDMS 17:37 Chest, 2 view PA, Lat Ordered. EDMS 17:38 Chest, 2 view PA, Lat Ordered. EDMS 17:38 Chest, 2 view PA, Lat Ordered. EDMS 17:38 Chest, 2 view PA, Lat Ordered. EDMS 17:38 Chest, 2 view PA, Lat Ordered. EDMS 17:38 Chest, 2 view PA, Lat Ordered. EDMS 17:38 Chest, 2 view PA, Lat Ordered. EDMS 17:39 Chest, 2 view PA, Lat Ordered. EDMS 17:39 Chest, 2 view PA, Lat Ordered. EDMS 17:39 Admission / Observation Status ordered. EDMS 17:39 REGULAR DIET ordered. EDMS Signatures: Dispatcher [employer] EDWA Bre Lamar MD MD sdLita Flores, Drill Punch Operator Unit lbd Baljinder Parker RN RN bcj Olin, Zoeann zo Castle, Jennifer RN RN jc4 Nadir Coello RN RN Jared Diaz, LIDYA RN mts The chart was reviewed and I authenticate all verbal orders and agree with the evaluation and treatment provided.Corrections: (The following items were deleted from the chart) 16:22 16:19 LIVER PROFILE+LAB ordered. EDMS EDMS 17:15 17:15 NO ADDED SALT DIET ordered. EDMS EDMS 17:15 17:15 NO ADDED SALT DIET ordered. EDMS EDMS 17:20 16:24 CT ABD & PELVIS WITH CONTRAST+CT ordered. EDMS EDMS 17:21 17:16 LACTATE DEHYDROGENASE ordered. EDMS EDMS 17:21 17:16 TOTAL PROTEIN ordered. EDMS EDMS 17:39 17:15 CONSISTENT CARBOHYDRATES ordered. EDMS EDMS Attachments: 16:44 [facility] [place] Agreement zo MTDD
[2016-08-26] MEDS: KCL 20MEQ IN D5/NS 1000ML 1,000 ML IV SCH (17:59)
[2016-08-26] MEDS: MIDAZOLAM INJ 2 MG/2 ML VIAL (J2250) IV PRN ×3 (18:06→18:16)
[2016-08-26] MEDS: KETOROLAC 30 MG/ML VIAL (J1885) IV SCH ×2 (18:57→23:59)
[2016-08-26 19:39] LABS: LDH, BODY FLUID 58 U/L (NOT ESTABLISHED); TOTAL PROTEIN, BODY FLUID 1.5 G/DL (NOT ESTABLISHED)
[2016-08-26 19:41] LABS: RBC PLEURAL FLUID 125 (<10mm3 cells/uL); TNC PLEURAL FLUID 683 cells/uL (0-20)
[2016-08-26 19:44] LABS: BF DIFF IF INDICATED? YES (NO)
[2016-08-26] MEDS: LEVALBUTEROL 1.25 MG/0.5 ML CONCENTRATE NEB NEB SCH (20:03)
--- NOTE | 2016-08-26 20:10 | REP ---
Clinical: Pleural effusion status post thoracentesis. Comparison: 08/26/2016 at 04:06 p.m. Findings: Right-sided chest tube has been placed and the right pleural effusion has decreased. Underlying right-sided alveolar infiltrates are suggested. Left hemithorax is grossly unremarkable. The mediastinum and cardiac silhouette are within normal limits. The skeletal structures are intact. Impression: Decreased right pleural effusion. Diffuse right-sided alveolar infiltrates suggested. Signed by Pk Hansen MD 08/26/2016 08:01 P
--- NOTE | 2016-08-26 20:28 | HPEPDOC ---
General Date of Admission Aug 26, 2016 at 17:09 Primary Care Physician: ABI FLETCHER MD Attending Physician: CAROL BOUCHER MD Chief Complaint The patient is a 60-year-old female admitted with a reason for visit of Pleural Effusion, Right. Source: EMS notes reviewed, Old records History of Present Illness Ms. Palma presents to the ED for worsening shortness of breath. The patient was in the emergency department 5 days ago with shortness of breath as well where she was found to have a right pleural effusion. It appears that the knot tier was going to drain this via thoracentesis, however the patient had a syncopal episode and the thoracentesis was aborted. Today, on chest x-ray it was noted that she had a worsening right pleural effusion, therefore cardiothoracic surgery was called by the ED physician for the placement of the chest tube. A CT scan was then performed which revealed a large right pleural effusion increased from prior exam with partial collapse of the right upper lobe , right middle lobe, and complete collapse of the right lower lobe. By the time I arrived the patient was already being prepped for a chest tube and had already received Versed, therefore history and review of systems could not be obtained from patient. From what I could gather from her medical record, it appears that she has a history of chronic cirrhosis likely from fatty liver disease, and recurrent ascites, and is suspected that her pleural effusion is secondary to her recurrent ascites. Home Medications Scheduled (Iron) 90 Mg Tab 90 MG PO BID (Reported) Aspirin (Aspirin 81) 81 Mg Tab 81 MG PO DAILY (Reported) Calcium/Vitamin D (Calcium 500+D 500-400 mg-Unit) 1 Tab Tab 1 TAB PO BID ( Reported) Escitalopram Oxalate (Lexapro) 20 Mg Tab 20 MG PO DAILY (Reported) Esomeprazole Magnesium Trihydr (Nexium) 40 Mg Cap 40 MG PO DAILY (Reported) Furosemide (Furosemide) 40 Mg Tab 40 MG PO BID (Reported) Insulin Aspart (Novolog) 100 U/Ml Inj 1 DOSE SC ACHS (Reported) PER SLIDING SCALE Insulin Glargine (Lantus) 1 Units/0.01 Ml Susp 64 UNITS SC BID (Reported) Meclizine HCl (Meclizine HCl) 25 Mg Tab 25 MG PO BID (Reported) Spironolactone (Spironolactone) 25 Mg Tab 25 MG PO BID (Reported) Scheduled PRN Trazodone HCl (Trazodone HCl) 50 Mg Tab 50 MG PO QHS PRN PRN SLEEP (Reported) Allergies Coded Allergies: Candesartan (Unverified Allergy, Unknown, CHEST PAIN, 10/08/15) Hydrochlorothiazide (Unverified Allergy, Unknown, CHEST PAIN, 10/08/15) Past Medical History Medical History Liver cirrhosis with recurrent ascites, 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 fatty liver disease Anxiety Insulin-dependent diabetes mellitus type 2 GERD Hypercholesterolemia Hypertension Chronic vertigo History of depression History of esophageal varices Obstructive sleep apnea Migraine headaches Surgical History Appendectomy Hysterectomy Hernia repair History of chest tube insertion with infection complication Left elbow and shoulder repair Right knee surgery Family History Family History Per medical record her father was an alcoholic and had alcoholic cirrhosis Social History * Smoker: non-smoker (per medical record) Alcohol: denies (per medical record) Drugs: denies (per medical record) Review of Symptoms Other systems Review of systems is unobtainable Physical Examination General Exam: Positive: No Acute Distress, Negative: Alert, Cooperative Eye Exam: Positive: Conjunctiva & lids normal, Negative: Sclera icteric Chest Exam: Positive: Other (chest tube present in the right lateral thorax), Rales (on the right side) Heart Exam: Positive: Other (distant heart sounds), Tachycardic Telemetry: Positive: No significant arrhythmia Abdomen Exam: Positive: Normal bowel sounds Female Exam: Positive: Nl Ext Genitalia, Negative: Discharge, Lesions, Odor, Tenderness Extremity Exam: Positive: Normal pulses, Negative: Clubbing, Cyanosis, Edema Skin Exam: Positive: Nl turgor and temperature, Negative: Breakdown, Lesion Neuro Exam: Positive: Cranial Nerves 3-12 NL, Normal Gait, Normal Speech, Reflexes 2+ Psych Exam: Positive: Mental status NL, Mood NL, Oriented x 3 Vital Signs Blood pressure 130/77, pulse 103, respirations 22, temperature 98.9, pulse ox is 96% on 5 L nasal cannula, weight is 113 kg, height 5 feet 1 inch, body mass index 47 Laboratory Data Labs 24H Laboratory Tests 2 08/26/16 16:10: Aspartate Amino Transf (AST/SGOT) 40H, Alanine Aminotransferase (ALT/SGPT) 34, Lactate Dehydrogenase 197, Alkaline Phosphatase 229H, Total Bilirubin 0.5, Direct Bilirubin 0.2, Albumin 3.2, Albumin/Globulin Ratio 0.76L, Anion Gap 8, Calcium Level 8.7L, Creatine Kinase MB 1.0, Creatine Kinase MB Relative Index 2.04, Estimated Mean Plasma Glucose 177H, Glomerular Filtration Rate > 60.0, Hemoglobin A1c 7.8H, Prothromb Time International Ratio 1.20, Prothrombin Time 15.3H, Total Creatine Kinase 49, Total Protein 7.4, Troponin I < 0.02 08/26/16 16:11: Arterial Blood pH 7.486H, Arterial Blood Partial Pressure CO2 34.0L, Arterial Blood Partial Pressure O2 90.2, Arterial Blood Total CO2 26.1, Arterial Blood HCO3 25.1, Arterial Blood Base Excess 2.2H, Arterial Blood Oxygen Saturation 97.7, B-Type Natriuretic Peptide 31.1, White Blood Count 4.3, Red Blood Count 4.63, Hemoglobin 14.5, Hematocrit 43.5, Mean Corpuscular Volume 93.9, Mean Corpuscular Hemoglobin 31.3, Mean Corpuscular Hemoglobin Concent 33.3, Red Cell Distribution Width 14.4, Platelet Count 74L, Neutrophils (%) (Auto) 65.4, Lymphocytes (%) (Auto) 23.2L, Monocytes (%) (Auto) 5.3H, Eosinophils (%) (Auto) 3.3H, Basophils (%) (Auto) 1.3H, Neutrophils # (Auto) 2.8, Lymphocytes # (Auto) 1.0L, Monocytes # (Auto) 0.2, Eosinophils # (Auto) 0.1, Basophils # (Auto) 0.1, Blood Gas Bicarbonate Standard 26.4H, Large Unclassified Cells # 0.1, Large Unclassified Cells % 1.4, Oxygen Delivery Device NASAL JUDITH 08/26/16 18:36: Body Fluid Albumin 0.9, Body Fluid Amylase 14, Body Fluid Cholesterol < 50, Body Fluid Glucose 191, Body Fluid Lactate Dehydrogenase 58, Body Fluid Source PLEURAL, Body Fluid Total Protein 1.5, Body Fluid Triglycerides 200, Body Fluid pH > 7.800, Pleural Fluid Appearance TURBID, Pleural Fluid Color RED, Pleural Fluid RBC (Auto) 125, Pleural Fluid Source PLEURAL, Pleural Fluid Total Nucleated Cells 683H 08/26/16 18:38: Lactate Dehydrogenase 200, Ammonia 24 08/26/16 19:01: Bedside Glucose (Misc Panel) 120H CBC/BMP Laboratory Tests 08/26/16 16:10 08/26/16 16:11 Red Blood Count 4.63, Mean Corpuscular Volume 93.9, Mean Corpuscular Hemoglobin 31.3, Mean Corpuscular Hemoglobin Concent 33.3, Red Cell Distribution Width 14.4 , Neutrophils (%) (Auto) 65.4, Lymphocytes (%) (Auto) 23.2 L, Monocytes (%) ( Auto) 5.3 H, Eosinophils (%) (Auto) 3.3 H, Basophils (%) (Auto) 1.3 H, Neutrophils # (Auto) 2.8, Lymphocytes # (Auto) 1.0 L, Monocytes # (Auto) 0.2, Eosinophils # (Auto) 0.1, Basophils # (Auto) 0.1 Microbiology Microbiology 08/26/16 Blood Culture, Received Pending 08/26/16 Blood Culture, Received Pending 08/26/16 Acid Fast Stain, Received Pending 08/26/16 Mycobacterial Culture, Received Pending 08/26/16 Fungal Smear, Received Pending 08/26/16 Fungal Culture, Received Pending 08/26/16 Gram Stain, Received Pending 08/26/16 Body Fluid Culture, Received Pending 08/26/16 Anaerobic Culture, Received Pending (1) Pleural effusion, right Status: Acute (2) SOB (shortness of breath) Status: Acute (3) Vertigo Status: Chronic (4) Obstructive sleep apnea Status: Chronic (5) Portal hypertension with esophageal varices Status: Chronic (6) Depression Status: Chronic (7) Diabetes Status: Chronic (8) Thrombocytopenia Status: Chronic (9) Hyperlipidemia Status: Chronic (10) Ascites Status: Chronic (11) Liver cirrhosis Status: Chronic (12) Psychiatric disorder Status: Chronic Plan / VTE VTE Prophylaxis Ordered?: Yes (heparin) Plan Plan Will admit the patient to PCU and will be under the care of Dr. Katz at [address] Parker of thoracic surgery has been consulted and is placed a right lateral chest tube to drain the right pleural effusion. The etiology of the pleural effusion is likely secondary to her chronic recurrent ascites from her cirrhosis of an unknown etiology, but it is likely nonalcoholic fatty liver disease. Our major concern at this time is monitoring for reexpansion pulmonary edema, as she had a very large right pleural effusion , which immediately drained approximately 3 L initially, and then it was hooked up to suction and continued to drain even more. Nebulizers, oxygen, and other respiratory medications have already been put in by Dr. Parker. As regarding her chronic conditions, we will continue her home medication at their usual doses, except we will hold aspirin at this time. Further evaluation and management will be necessary pending evaluation of the pleural fluid. Because of her lack of constitutional symptoms, and no leukocytosis, this is not appear to be infectious in nature and no empiric antibiotics will be ordered at this time. PAOLA CANNON DO Aug 26, 2016 20:28 CAROL BOUCHER MD Aug 26, 2016 21:24
[2016-08-26] MEDS: SPIRONOLACTONE 25 MG TAB PO SCH (20:42)
[2016-08-26] MEDS: MECLIZINE 25 MG TABLET PO SCH (20:42)
[2016-08-26] MEDS: traZODone 50 MG TAB PO SCH (20:42)
[2016-08-26] MEDS: PERCOCET 5MG/325MG TAB PO PRN (20:44)
[2016-08-26] MEDS: LEVEMIR (INSULIN DETEMIR) 1 UNITS/0.01ML SC SCH (20:45)
[2016-08-26] MEDS: DOCUSATE SODIUM 100 MG CAP PO SCH (20:46)
[2016-08-26] MEDS: HEPARIN SOD (PORCINE) 5000 UNITS/ML VIAL SC SCH (20:46)
[2016-08-26 20:55] LABS: CC BF DIFF EXAM CYTOCENTRIFUGE
[2016-08-27] VITALS: BP 114/64
[2016-08-27] MEDS: LEVALBUTEROL 1.25 MG/0.5 ML CONCENTRATE NEB NEB SCH ×4 (02:00→19:44)
[2016-08-27 04:00] VITALS: BP 120/62
[2016-08-27] MEDS: PERCOCET 5MG/325MG TAB PO PRN (04:16)
[2016-08-27] MEDS: KETOROLAC 30 MG/ML VIAL (J1885) IV SCH ×3 (05:13→17:18)
[2016-08-27 05:30] LABS: BASO % 0.8 % (0.0-1.0); EOS # 0.1 K/mm3 (0.0-0.50); EOS % 2.6 % (0.0-3.0); LARGE UNSTAINED CELL # 0.1 K/mm3 (0.0-0.4); LARGE UNSTAINED CELL % 2.4 % (0.0-4.0); LYMPH # 0.9 K/mm3 (1.5-4.5); MEAN CORPUSCULAR HEMOGLOBIN 31.4 pg (27.0-33.0); MEAN CORPUSCULAR HGB CONC 33.2 g/dl (32.0-36.5); MEAN CORPUSCULAR VOLUME 94.4 fl (80.0-96.0); MONO # 0.2 K/mm3 (0.0-0.8); MONO % 6.7 % (0.0-5.0); NEUTROPHILS # 1.8 K/mm3 (1.8-7.7); NEUTROPHILS % 59.5 % (36.0-66.0); RED CELL DISTRIBUTION WIDTH 14.5 % (11.5-14.5)
[2016-08-27 05:39] LABS: PLATELET COUNT, AUTOMATED 60 k/mm3 (150-450)
[2016-08-27 05:42] LABS: ANION GAP 8 MEQ/L (8-16); BLOOD UREA NITROGEN 16 MG/DL (7-18); CALCIUM LEVEL 8.4 MG/DL (8.8-10.2); CARBON DIOXIDE LEVEL 27 MEQ/L (21-32); CHLORIDE LEVEL 108 MEQ/L (98-107); CREATININE FOR GFR 0.94 MG/DL (0.55-1.02); GLOMERULAR FILTRATION RATE > 60.0 (>45); GLUCOSE, FASTING 199 MG/DL (80-110); SODIUM LEVEL 143 MEQ/L (136-145)
[2016-08-27 06:26] LABS: ABG BASE EXCESS -0.9 (-2.0-2.0); ABG HCO3 22.3 MEQ/L (22.0-26.0); ABG PARTIAL PRESSURE CO2 32.8 mmHg (35.0-45.0); ABG PARTIAL PRESSURE O2 100.2 mmHg (75.0-100.0); ABG STANDARD HCO3 23.7 MEQ/L (22.0-26.0); ABG TOTAL CO2 23.3 MEQ/L (23.0-31.0); ABG pH (ARTERIAL) 7.451 UNITS (7.350-7.450)
[2016-08-27] MEDS: KCL 20MEQ IN D5/NS 1000ML 1,000 ML IV SCH (06:44)
[2016-08-27] MEDS: HumaLOG INSULIN (NovoLOG) PER UNIT SC SCH ×4 (07:30→21:00)
[2016-08-27 08:00] VITALS: BP 112/59
[2016-08-27] MEDS ORDERED: FUROSEMIDE 40 MG TAB PO SCH (09:00)
[2016-08-27] MEDS ORDERED: PANTOPRAZOLE 40MG INJ (PROTONIX) (C9113) IV SCH (09:00)
[2016-08-27] MEDS ORDERED: PANTOPRAZOLE 40MG TAB (PROTONIX) PO SCH (09:00)
[2016-08-27] MEDS: HEPARIN SOD (PORCINE) 5000 UNITS/ML VIAL SC SCH (09:00)
[2016-08-27] MEDS: MOM 30ML SUSPENSION UDC PO SCH (09:02)
[2016-08-27] MEDS: ESCITALOPRAM OXALATE 10 MG TAB (LEXAPRO) PO SCH (09:03)
[2016-08-27] MEDS: LEVEMIR (INSULIN DETEMIR) 1 UNITS/0.01ML SC SCH ×2 (09:03→21:44)
[2016-08-27] MEDS: SPIRONOLACTONE 25 MG TAB PO SCH ×2 (09:04→21:42)
[2016-08-27] MEDS: OMEPRAZOLE 20 MG CAP PO SCH (09:04)
[2016-08-27] MEDS: MECLIZINE 25 MG TABLET PO SCH ×2 (09:04→21:42)
[2016-08-27] MEDS: DOCUSATE SODIUM 100 MG CAP PO SCH ×2 (09:04→21:42)
[2016-08-27 09:22] LABS: CHOLESTEROL LEVEL 193 MG/DL (< 200); TRIGLYCERIDES LEVEL 112 MG/DL (<150)
--- NOTE | 2016-08-27 09:26 | REP ---
Clinical: Follow up pleural effusion and infiltrates. Comparison: 08/26/2016. Findings: Right chest tube in stable position. Small residual right apical pneumothorax identified. Small residual right pleural fluid suggested. Improved aeration to the lung sweet noted. No new acute process. Mediastinum and cardiac silhouette within normal limits and stable. Skeletal structures intact. Impression: Small residual right apical pneumothorax. Improved aeration and decreased right pleural effusion. Signed by Pk Hansen MD 08/27/2016 09:17 A
--- NOTE | 2016-08-27 11:41 | RO ---
DATE OF PROCEDURE: 08/26/2016 PREPROCEDURE DIAGNOSIS: Right pleural effusion. POSTPROCEDURE DIAGNOSIS: Right pleural effusion. PROCEDURE: Insertion of right lateral chest tube. SURGEON: Dr. Francisco J Parker INSURANCE LOSS CONTROL SURVEYOR: ANESTHESIA: FINDINGS: Chest tube eluded 3000 mL of blood-tinged cloudy fluid, looking more like chyle. It if were not for the red tinge, it probably would have been milky. The patient in morbidly obese which entailed creating a very long tunnel into the chest. DESCRIPTION OF PROCEDURE: Under satisfactory moderate sedation achieved with 6 mg of Versed, the patient was prepped and draped in the usual sterile fashion. The skin, subcutaneous tissue, rib and pleura were infiltrated with 1% Xylocaine. Incision was made and a very deep, long tunnel was made through the subcutaneous tissue and finally into the chest. A #24 chest tube was placed with return of the above volume of solution. Chest tube was secured to the chest wall with a #2 Tevdek suture. In addition, a U stitch was placed because of skin bleeding. The patient tolerated the procedure well and chest x-ray is pending. [facility]
[2016-08-27 12:00] VITALS: BP 114/62
--- NOTE | 2016-08-27 13:17 | IPN ---
DATE: 08/27/2016 Ms. Palma is breathing a whole lot better than she did yesterday when she came to the emergency room. We took out 3 liters of chylous blood-tinged fluid yesterday. She has put out quite a bit overnight, however, of 610 mL as of 12 midnight and since 12 midnight has put out 740 mL of the same bloody, opaque fluid. She is complaining of 9/10 pain in her back, although she certainly is not acting as a 9/10. She is being given narcotic analgesia along with Toradol. Her vital signs show a maximum temperature (T max) of 97.6 with a heart rate that ranges between 86 and 108 and is sinus rhythm, a respiratory rate of 16 to 18 without the use of accessory muscles, who is 92 to 93% saturated on room air and whose blood pressure is ranging between 112/59 to 132/66. Her intake and output for the past 24 hours has been recorded withr a positivity of approximately 600 mL. Her chest tube is discussed above, having put 740 mL in the past 11 hours. Weight today is 111 kg compared to 112.4 kg yesterday. There is no air leak, although nursing staff has seen an intermittent air leak earlier this morning. PHYSICAL EXAMINATION: She has faint rales and rhonchi in the right hemithorax. Left shows normal vesicular sounds, although both sides are diminished secondary to her morbid obesity. Percussion note is full to the diaphragm. Cardiac exam shows distant heart sounds without murmurs, clicks, gallops or rubs. I cannot feel her point of maximum impulse (PMI) secondary to her obesity. S1, S2 are normal. Abdomen is soft and nontender. Bowel sounds are positive. There is no hepatomegaly that I can appreciate. There is no costovertebral angle tenderness. Extremities show no pretibial edema. No calf tenderness. No differential swelling of the upper extremities. Skin is warm, dry and perfused without cyanosis or mottling, including that of the nail beds and the knees. Neck is supple. There is no jugular venous distention, no subcutaneous emphysema. Trachea is midline. Mouth shows her mucous membranes to be pink and moist. Lips and commissures without lesions. No thrush. Eyes show her pupils to be equal and reactive. Extraocular motions are intact. Sclerae anicteric. Neurologic shows II-XII intact along with gross motor and gross sensation intact. Gait is not tested. Psychiatric shows her to be awake and alert, oriented times three with appropriate mood and affect and conversational. Her white count today is 3.0 with a hemoglobin and hematocrit of 12.9 and 38.7, respectively. Platelet count is 60 with a differential that shows 59% neutrophils, 28% lymphocytes, 6% monocytes. There are no immature forms. No toxic granulations. Red cell indices are normal. Electrolytes are essentially normal with a BUN and creatinine of 16 and 0.94, glucose of 199 and a calcium of 8.4. Triglycerides are 112 with a cholesterol of 192 in the serum. Her pleural fluid has been returned with a pH of greater than 7.8 with an LDH of 58, with a corresponding LDH of 200 in the serum, with a total protein of 1.5, with a corresponding total protein of 7.4. Triglycerides in the pleural fluid are 200 compared to a triglyceride level of 112 in her serum, confirming that this is a chylous effusion. She has 683 nucleated cells, 83% of which were lymphocytes, 15 are monocytes and macrophages and 5 are neutrophils. Her blood gases today show a pH of 7.45, pCO2 of 32 and a pO2 of 100 on room air. Her PT/INR is 15.3 and 1.20 respectively. Her chest x-ray shows her lung now fully expanded to the chest wall. Compressive changes and postexpansion pulmonary edema are resolving as judged from the change from the immediate post chest film x-ray yesterday. I see no other infiltrates. There is a small residual pleural effusion on the lateral film, which is not all that evident on the PA film. IMPRESSION: 1. Nonalcoholic cirrhosis secondary to steatohepatitis. 2. Portal hypertension. 3. Esophageal varices. 4. Chylous pleural effusion, right side. 5. Diabetes. 6. Thrombocytopenia, leukopenia - both of which are secondary to her liver disease. 7. Morbid obesity. 8. Hypertension. 9. Depression. 10. Obstructive sleep apnea. PLAN AND DISCUSSION: She has put out a considerable amount out the chest tube, way too much to even consider removing it. She has already had a PleurX catheter , which probably became infected and, therefore, had to be removed. We have one or two options to control this pleural effusion. We can either place another PleurX catheter or do a talc pleurodesis. My personal experience with talc pleurodesis and liver failure accompanied by ascites, has not been spectacular in that the effusions are not well controlled. I am, therefore, reticent to take her to the operating room for a pleurodesis. Just like a chest tube, placing a PleurX catheter is also rather difficult secondary to her morbid obesity. Essentially, we are between a rock and a hard place with regard to treating Mrs. Palma. I am going to try and get her effusion to decrease over the next number of days. If we can, I may consider a talc pleurodesis. JOSELUIS
--- NOTE | 2016-08-27 13:39 | CR ---
DATE OF CONSULTATION: 08/26/2016 Mrs. Palma is seen at the request of Dr. Lund in the emergency room for increasing shortness of breath and what appears to be a large pleural effusion. HISTORY OF PRESENT ILLNESS: The patient is a 60-year-old white female with nonalcoholic liver cirrhosis with portal hypertension, who has been previously evaluated at [facility] for a liver transplant, but whose model for end-stage liver disease (MELD) score was found to be too mild for consideration for transplant at this point in time. She is morbidly obese. Approximately ten days ago, she started to experience increasing shortness of breath. Shortness of breath has continued such that now she even has trouble moving around in bed without getting short of breath. Five days ago, she presented to the emergency room, where she was found to have a moderate pleural effusion. At that time it was going to be drained; however, she has had a fainting spell and the drainage thoracentesis was subsequently not done. She was discharged and today she returns even more short of breath with the above symptomatology. She has a slight cough but it is not productive. She notably does not have orthopnea, sleeps in a flat bed. There is no real paroxysmal nocturnal dyspnea. She has not noticed that her legs are swelling, but it may be difficult because of her morbid obesity. She complains of mild back pain but not real chest pain. There is no pleuritic chest pain. She has had no fever, chills, or sweats. This past summer she had a PleurX catheter placed, which was draining approximately 250 mL every other day, but she said that it then became very painful and was draining very little and was therefore removed. It was removed in April of last year. PAST MEDICAL HISTORY: See history of present illness above. 1. Recurrent transudative pleural effusions on the right side. 2. Diabetes. 3. Esophageal varices. 4. Portal hypertension. 5. Remote history of pancreatitis. 6. Gastroesophageal reflux disease (GERD). 7. Nonalcoholic cirrhosis. 8. Anxiety. 9. Hypertension. 10. Chronic thrombocytopenia. 11. Leukopenia. 12. Hyperlipidemia. 13. Depression. PAST SURGICAL HISTORY: 1. Hysterectomy in the remote past. 2. Appendectomy. 3. Right inguinal hernia with knee surgery. 4. She has had shoulder arthroscopy. 5. The above PleurX catheter placement and removal. ALLERGIES: ATACAND, which gives her chest pain. HYDROCHLOROTHIAZIDE, which supposedly gives her chest pain. TRAVEL HISTORY: [place] 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 EXPOSURES: No dogs, cats, or birds at home at the present time. No exposure to tuberculosis. HABITS: She does not smoke, nor does she drink. FAMILY HISTORY: Father with hypertension, diabetes, and coronary artery disease. Mother with the same. MEDICATIONS: At home: - aspirin 81 mg daily - calcium with D one tablet daily - Lexapro 20 mg daily - Nexium 40 mg daily - Lasix 40 mg twice a day - insulin Lantus 64 units twice a day - iron 90 mg twice a day - meclizine 25 mg twice a day - spironolactone 25 mg twice a day - trazodone 250 mg as needed REVIEW OF SYSTEMS: CONSTITUTIONAL: Without fevers, chills, sweats or night sweats. EYES: Without diplopia. Without prior jaundice. Without amaurosis fugax. NOSE: Without epistaxis. MOUTH: Has false teeth on her upper plate. RESPIRATORY: See history of present illness. CARDIAC: No history of prior myocardial infarctions, intermittent claudication, or leg edema. GASTROINTESTINAL: Denies nausea, vomiting, diarrhea, constipation. Without melena or hematochezia. She has in the past reported black bowel movements, but she attributes that to her iron pills. No abdominal pain. GENITOURINARY: Without dysuria. Without renal stones. Without hematuria. NEUROLOGIC: Without paresthesias, paralysis or seizures. PSYCHIATRIC: She has chronic depression, for which she is on Lexapro. ENDOCRINE: With diabetes. Without thyroid disease. HEMATOLOGIC: Without prolonged bleeding times that she has noted. PHYSICAL EXAMINATION: Morbidly obese, white female in acute distress from shortness of breath. VITAL SIGNS: Blood pressure 130/77, pulse 103 in a sinus rhythm. Respiratory rate of 22. Temperature is 98.9, and she is 96% saturated on 5 liters nasal cannula. EYES: Pupils are equal, round and reactive to light. Extraocular motors intact. Sclerae nonicteric. NOSE: Without deformity. MOUTH: Shows mucous membranes to be pink and moist. Lips and commissures without lesions. There is no thrush. HEAD: Normocephalic. NECK: Supple. There is no jugular venous distention (JVD). No subcutaneous emphysema. Trachea is midline. There is no lymphadenopathy. She has 1+ carotid upstrokes without carotid bruits. No thyromegaly that I can feel through her morbid obesity. LUNGS: Show markedly decreased breath sounds on the right side with a dull percussion note on the right side all the way up to the cupula. Left lung shows very distant breath sounds, probably secondary to her morbid obesity. I hear no wheezes, rhonchi or rales on the left side. CARDIAC EXAM: Shows distant heart sounds without murmurs, clicks, gallops or rubs. I cannot feel her point of maximum impulse (PMI). S1, S2 are normal. ABDOMEN: Soft, nontender. Bowel sounds are positive. There is no hepatomegaly that I can feel through the obesity. There is no costovertebral angle tenderness. EXTREMITIES: Show no pretibial edema. No calf tenderness. No differential swelling of the upper extremities. SKIN: Warm, dry and perfused without cyanosis or mottling, including that of the nail beds and the knees. NEUROLOGIC: Shows II through XII intact. Gross motor and sensation intact. Gait is not tested. PSYCHIATRIC: Shows her to be awake, alert, and oriented times three with appropriate mood and affect. Anxious secondary to her shortness of breath. Her white count is 4.3 with a hemoglobin and hematocrit of 14.5 and 43.5, respectively. Platelet count of 4. Differential shows 23% lymphocytes, 5% monocytes, 3% eosinophils. There are no immature forms and no toxic granulations. Her electrolytes are normal with a BUN and creatinine of 12 and 0.85. Glucose is 113 with a calcium of 8.7. Total bilirubin is 0.5 with an AST and ALT of 40 and 34, respectively. Ammonia level is 24. Albumin is 3.2 with a total protein of 7.4. Blood gases show a pH of 7.48, PCO2 of 34, and a PO2 of 90 with a base excess of 2.2. Hepatitis antibodies and antigens were all negative, measured at the end of July. Chest x-ray shows almost complete opacification of the right hemithorax. There is some aeration with a vertical stripe on the film. It is reported as being sitting, but it is probably more recumbent. There is no mediastinal shift. CT confirms the large pleural effusion with compression of the lower and middle lobes and most of the upper lobe. Fluid is almost completely replaces the hemithorax contents. There is the above compression atelectasis. She has some ascites below the diaphragm. Her liver is rather small and I can imagine some lumpy appearance to it, consistent with cirrhosis. She has opacification of the gallbladder. Right adrenal is intact. I do not appreciate the left adrenal. IMPRESSION: 1. Large recurrent pleural effusion. 2. Cirrhosis. 3. Portal hypertension. 4. Steatohepatitis. 5. Hypertension. 6. Diabetes. 7. Depression. 8. Anxiety. 9. Thrombocytopenia. 10. Leukopenia, probably all secondary to her liver disease. 11. Hyperlipidemia. 12. Gastroesophageal reflux disease (GERD). PLAN AND DISCUSSION: I will immediately place a chest tube to relieve her of her acute life threatening problem at this point in time. This has been recurrent. If I can get her to a point where she is not putting out much from the chest tube, my hand is going to be forced to do a talc pleurodesis. She is not a great candidate for that and it would be technically very difficult secondary to her morbid obesity. I am not even sure if the ports will be long enough to go through the subcutaneous tissue.
--- NOTE | 2016-08-27 13:51 | IPNPDOC ---
Date/Time Seen The patient was seen on 08/27/16 at 13:39. Progress Note SUBJECTIVE: The patient reports that she is breathing much more easily than she was last night she denies any chest pain shortness breath fevers chills nausea vomiting or diarrhea OBJECTIVE: PHYSICAL EXAMINATION: VITAL SIGNS: 96% on 2 L Please see below. GENERAL: Pleasant obese female lying in bed at 30 angle watching television she is in no distress HEENT: Or equally round reactive to light she is moist mucous membranes difficult to assess for any central venous pressure elevation secondary to body habitus CARDIOVASCULAR: S1-S2 regular. RESPIRATORY: Fairly clear to auscultation she has diminished breath sounds at base chest tube dressing is clean dry and intact draining serosynovitis fluid. ABDOMINAL: Morbidly obese no tense ascites likely shifting dullness and fluid wave EXTREMITIES: No clubbing cyanosis 1+ edema bilaterally LABORATORY DATA: Please see below. MICROBIOLOGY: Negative are pending otherwise Please see below. IMAGING: Chest x-ray this morning reveals small residual right apical pneumothorax improved aeration and decreased right pleural effusion The patient also had a CT scan of her chest yesterday that revealed large right pleural effusion with partial collapse of the right upper lobe right middle lobe and complete class of the right lower lobe the abdomen demonstrated ascites splenomegaly cholelithiasis findings to suggest cirrhosis DVT prophylaxis ordered?: Sequentials and teds no pharmacological agents secondary to thrombocytopenia ASSESSMENT AND PLAN: This is a 60-year-old female with recurrent right pleural effusion secondary to liver cirrhosis. Problem #1 recurrent right pleural effusion: Dr. Valladares help greatly appreciated. The patient's clinical status is improved following chest tube placement however the long-term question remains what to do to prevent recurrence. The patient is not yet a candidate for liver transplantation however she is quite symptomatic. She is reportedly failed Pleurx catheter in the past and Dr. Parker is considering a talk pleurodesis. In an effort to her demise or pulmonary symptoms I'll attempt to optimize her liver cirrhosis which is the underlying pathology. Given her cirrhosis I will change from Percocet to Roxicodone to limit the acetaminophen she is receiving Problem #2 liver cirrhosis: Suspected to be secondary to fatty liver the patient is currently on Lasix 40 mg by mouth twice a day I will titrate up her regimen her blood pressure renal function appeared to have room for this. I will also transition her to a sodium restricted diet. The patient is currently on Aldactone already Should her blood pressure be able to tolerate I would also like to in coming days and reproducible beta tadeo to help reduce portal hypertension. Early this coming week I think she would benefit from paracentesis and would also likely benefit from regularly scheduled outpatient paracentesis I hope with these measures 2 for the long-term reduce fluid accumulation in both her abdomen and right pleural space Problem #3 thrombocytopenia: We'll check a peripheral smear analysis, this is chronic and likely secondary to her liver cirrhosis Problem #4 vertigo continue with meclizine Problem #5 obstructive sleep apnea continue his night CPAP Problem #6 depression continue Lexapro and trazodone Problem #7 gastroesophageal reflux disease: The patient on omeprazole Problem #8 type 2 diabetes patient on sliding scale insulin DISPOSITION: We'll continue to follow the patient closely. VS, I&O, 24H, Fishbone VS, I&O, 24H, Fishbone Vital Signs Date Time Temp Pulse Resp B/P Pulse Ox O2 Delivery O2 Flow Rate FiO2 08/27/16 09:34 18 08/27/16 08:00 96.4 86 112/59 92 Room Air 08/27/16 08:00 3.0 I&O- Last 24 Hours up to 6 AM 08/27/16 05:59 Intake Total 1400 ml Output Total 885 ml Balance 515 ml Laboratory Tests 2 08/26/16 16:10: Aspartate Amino Transf (AST/SGOT) 40H, Alanine Aminotransferase (ALT/SGPT) 34, Lactate Dehydrogenase 197, Alkaline Phosphatase 229H, Total Bilirubin 0.5, Direct Bilirubin 0.2, Albumin 3.2, Albumin/Globulin Ratio 0.76L, Anion Gap 8, Calcium Level 8.7L, Creatine Kinase MB 1.0, Creatine Kinase MB Relative Index 2.04, Estimated Mean Plasma Glucose 177H, Glomerular Filtration Rate > 60.0, Hemoglobin A1c 7.8H, Prothromb Time International Ratio 1.20, Prothrombin Time 15.3H, Total Creatine Kinase 49, Total Protein 7.4, Troponin I < 0.02 08/26/16 16:11: Arterial Blood pH 7.486H, Arterial Blood Partial Pressure CO2 34.0L, Arterial Blood Partial Pressure O2 90.2, Arterial Blood Total CO2 26.1, Arterial Blood HCO3 25.1, Arterial Blood Base Excess 2.2H, Arterial Blood Oxygen Saturation 97.7, B-Type Natriuretic Peptide 31.1, White Blood Count 4.3, Red Blood Count 4.63, Hemoglobin 14.5, Hematocrit 43.5, Mean Corpuscular Volume 93.9, Mean Corpuscular Hemoglobin 31.3, Mean Corpuscular Hemoglobin Concent 33.3, Red Cell Distribution Width 14.4, Platelet Count 74L, Neutrophils (%) (Auto) 65.4, Lymphocytes (%) (Auto) 23.2L, Monocytes (%) (Auto) 5.3H, Eosinophils (%) (Auto) 3.3H, Basophils (%) (Auto) 1.3H, Neutrophils # (Auto) 2.8, Lymphocytes # (Auto) 1.0L, Monocytes # (Auto) 0.2, Eosinophils # (Auto) 0.1, Basophils # (Auto) 0.1, Blood Gas Bicarbonate Standard 26.4H, Large Unclassified Cells # 0.1, Large Unclassified Cells % 1.4, Oxygen Delivery Device NASAL JUDITH 08/26/16 18:36: Body Fluid Albumin 0.9, Body Fluid Amylase 14, Body Fluid Cholesterol < 50, Body Fluid Glucose 191, Body Fluid Lactate Dehydrogenase 58, Body Fluid Lymphocytes 80, Body Fluid Monocytes/Macrophages 15, Body Fluid Neutrophils 5, Body Fluid Source PLEURAL, Body Fluid Total Protein 1.5, Body Fluid Triglycerides 200, Body Fluid pH > 7.800, Pleural Fluid Appearance TURBID, Pleural Fluid Color RED, Pleural Fluid RBC (Auto) 125, Pleural Fluid Source PLEURAL, Pleural Fluid Total Nucleated Cells 683H 08/26/16 18:38: Lactate Dehydrogenase 200, Ammonia 24 08/26/16 19:01: Bedside Glucose (Misc Panel) 120H 08/26/16 20:35: Bedside Glucose (Misc Panel) 206H 08/27/16 05:18: Anion Gap 8, White Blood Count 3.0L, Red Blood Count 4.10, Hemoglobin 12.9, Hematocrit 38.7, Mean Corpuscular Volume 94.4, Mean Corpuscular Hemoglobin 31.4 , Mean Corpuscular Hemoglobin Concent 33.2, Red Cell Distribution Width 14.5, Platelet Count 60L, Neutrophils (%) (Auto) 59.5, Lymphocytes (%) (Auto) 28.0, Monocytes (%) (Auto) 6.7H, Eosinophils (%) (Auto) 2.6, Basophils (%) (Auto) 0.8 , Neutrophils # (Auto) 1.8, Lymphocytes # (Auto) 0.9L, Monocytes # (Auto) 0.2, Eosinophils # (Auto) 0.1, Basophils # (Auto) 0.0, Blood Urea Nitrogen 16, Creatinine 0.94, Sodium Level 143, Potassium Level 4.0, Chloride Level 108H, Carbon Dioxide Level 27, Calcium Level 8.4L, Cholesterol Level 193, Glomerular Filtration Rate > 60.0, Large Unclassified Cells # 0.1, Large Unclassified Cells % 2.4, Triglycerides Level 112 08/27/16 06:17: Arterial Blood pH 7.451H, Arterial Blood Partial Pressure CO2 32.8L, Arterial Blood Partial Pressure O2 100.2H, Arterial Blood Total CO2 23.3, Arterial Blood HCO3 22.3, Arterial Blood Base Excess -0.9, Arterial Blood Oxygen Saturation 97.9, Blood Gas Bicarbonate Standard 23.7 08/27/16 11:15: Bedside Glucose (Misc Panel) 221H Laboratory Tests 08/26/16 16:10 08/26/16 16:11 Red Blood Count 4.63, Mean Corpuscular Volume 93.9, Mean Corpuscular Hemoglobin 31.3, Mean Corpuscular Hemoglobin Concent 33.3, Red Cell Distribution Width 14.4 , Neutrophils (%) (Auto) 65.4, Lymphocytes (%) (Auto) 23.2 L, Monocytes (%) ( Auto) 5.3 H, Eosinophils (%) (Auto) 3.3 H, Basophils (%) (Auto) 1.3 H, Neutrophils # (Auto) 2.8, Lymphocytes # (Auto) 1.0 L, Monocytes # (Auto) 0.2, Eosinophils # (Auto) 0.1, Basophils # (Auto) 0.1 08/27/16 05:18 Red Blood Count 4.10, Mean Corpuscular Volume 94.4, Mean Corpuscular Hemoglobin 31.4, Mean Corpuscular Hemoglobin Concent 33.2, Red Cell Distribution Width 14.5 , Neutrophils (%) (Auto) 59.5, Lymphocytes (%) (Auto) 28.0, Monocytes (%) (Auto ) 6.7 H, Eosinophils (%) (Auto) 2.6, Basophils (%) (Auto) 0.8, Neutrophils # ( Auto) 1.8, Lymphocytes # (Auto) 0.9 L, Monocytes # (Auto) 0.2, Eosinophils # ( Auto) 0.1, Basophils # (Auto) 0.0, Calcium Level 8.4 L Microbiology 08/26/16 Blood Culture, Received Pending 08/26/16 Blood Culture, Received Pending 08/26/16 Acid Fast Stain, Received Pending 08/26/16 Mycobacterial Culture, Received Pending 08/26/16 Fungal Smear, Received Pending 08/26/16 Fungal Culture, Received Pending 08/26/16 Gram Stain - Final, Resulted 08/26/16 Body Fluid Culture, Resulted Pending 08/26/16 Anaerobic Culture, Resulted Pending JOSE SANTANA MD Aug 27, 2016 13:51
[2016-08-27] MEDS: oxyCODONE 5MG TAB PO PRN ×2 (14:20→21:43)
[2016-08-27 14:30] LABS: REASON FOR REVIEW PLATELET MORPHOLOGY
[2016-08-27 16:00] VITALS: BP 113/57
[2016-08-27] MEDS: FUROSEMIDE 80 MG TAB PO SCH (17:18)
[2016-08-27 20:00] VITALS: BP 112/57
[2016-08-27] MEDS: traZODone 50 MG TAB PO SCH (21:43)
[2016-08-28] VITALS (7 sets, daily range): BP systolic 104–114; BP diastolic 52–65; PULSE 89
[2016-08-28] MEDS: KETOROLAC 30 MG/ML VIAL (J1885) IV SCH ×4 (00:44→17:43)
[2016-08-28] MEDS: LEVALBUTEROL 1.25 MG/0.5 ML CONCENTRATE NEB NEB SCH ×4 (02:00→20:34)
[2016-08-28] MEDS: oxyCODONE 5MG TAB PO PRN ×4 (04:42→21:10)
[2016-08-28 05:41] LABS: BASO % 0.7 % (0.0-1.0); EOS # 0.2 K/mm3 (0.0-0.50); EOS % 4.2 % (0.0-3.0); LYMPH # 0.6 K/mm3 (1.5-4.5); LYMPH % 15.6 % (24.0-44.0); MEAN CORPUSCULAR HEMOGLOBIN 31.4 pg (27.0-33.0); MEAN CORPUSCULAR HGB CONC 32.3 g/dl (32.0-36.5); MEAN CORPUSCULAR VOLUME 97.3 fl (80.0-96.0); MONO # 0.2 K/mm3 (0.0-0.8); MONO % 5.2 % (0.0-5.0); NEUTROPHILS # 2.6 K/mm3 (1.8-7.7); NEUTROPHILS % 73.3 % (36.0-66.0); RED CELL DISTRIBUTION WIDTH 13.5 % (11.5-14.5); WHITE BLOOD COUNT 3.6 K/mm3 (4.0-10.0)
[2016-08-28 05:42] LABS: CALCIUM LEVEL 8.2 MG/DL (8.8-10.2); CREATININE FOR GFR 1.08 MG/DL (0.55-1.02); GLOMERULAR FILTRATION RATE 54.9 (>45); POTASSIUM SERUM 4.3 MEQ/L (3.5-5.1)
[2016-08-28 05:53] LABS: PLATELET COUNT, AUTOMATED 65 k/mm3 (150-450)
[2016-08-28] MEDS: CALCIUM CARBONATE 500 MG CHEW U/D PO SCH ×3 (08:25→17:41)
[2016-08-28] MEDS: HumaLOG INSULIN (NovoLOG) PER UNIT SC SCH ×4 (08:26→21:00)
[2016-08-28] MEDS: MECLIZINE 25 MG TABLET PO SCH ×2 (08:27→21:11)
[2016-08-28] MEDS: ESCITALOPRAM OXALATE 10 MG TAB (LEXAPRO) PO SCH (08:27)
[2016-08-28] MEDS: MOM 30ML SUSPENSION UDC PO SCH (08:27)
[2016-08-28] MEDS: SPIRONOLACTONE 25 MG TAB PO SCH ×2 (08:27→21:11)
[2016-08-28] MEDS: LEVEMIR (INSULIN DETEMIR) 1 UNITS/0.01ML SC SCH ×2 (08:27→21:10)
[2016-08-28] MEDS: FUROSEMIDE 80 MG TAB PO SCH ×2 (08:27→17:41)
[2016-08-28] MEDS: OMEPRAZOLE 20 MG CAP PO SCH (08:28)
[2016-08-28] MEDS: DOCUSATE SODIUM 100 MG CAP PO SCH ×2 (08:28→21:11)
[2016-08-28] MEDS ORDERED: metOLazone 2.5 MG TAB PO SCH (09:00)
--- NOTE | 2016-08-28 09:41 | IPNPDOC ---
Date/Time Seen The patient was seen on 08/28/16 at 09:36. Progress Note SUBJECTIVE: The patient reports that she is breathing much more easily but the present time is complaining of some heartburn in her neck tells me that this happens sometimes in the morning and usually alleviated by her PPI denies radiation shortness of breath associated diaphoresis nausea or vomiting it is not exertional in nature. OBJECTIVE: PHYSICAL EXAMINATION: VITAL SIGNS: 90% on room air otherwise Please see below. GENERAL: Pleasant obese female lying in bed at 30 angle watching television she is in no distress HEENT: Pupils are equally round reactive to light she is moist mucous membranes difficult to assess for any central venous pressure elevation secondary to body habitus CARDIOVASCULAR: S1-S2 regular. RESPIRATORY: Fairly clear to auscultation she has diminished breath sounds at base chest tube dressing is clean dry and intact draining serosynovitis fluid. ABDOMINAL: Morbidly obese no tense ascites, likely shifting dullness and fluid wave EXTREMITIES: No clubbing cyanosis 1+ edema bilaterally LABORATORY DATA: Please see below. MICROBIOLOGY: Negative or pending otherwise Please see below. IMAGING: Chest x-ray this morning is currently pending The patient also had a CT scan of her chest that revealed large right pleural effusion with partial collapse of the right upper lobe right middle lobe and complete class of the right lower lobe the abdomen demonstrated ascites splenomegaly cholelithiasis findings to suggest cirrhosis DVT prophylaxis ordered?: Sequentials and teds no pharmacological agents secondary to thrombocytopenia ASSESSMENT AND PLAN: This is a 60-year-old female with recurrent right pleural effusion secondary to liver cirrhosis. Problem #1 recurrent right pleural effusion: Dr. Parker's help greatly appreciated. The patient's clinical status is improved following chest tube placement however the long-term question remains what to do to prevent recurrence. The patient is not yet a candidate for liver transplantation however she is quite symptomatic. She is reportedly failed Pleurx catheter in the past and Dr. Parker is considering a talc pleurodesis versus reattempting a Pleurx. In an effort to her decrease her pulmonary symptoms I'll attempt to optimize her liver cirrhosis which is the underlying pathology. Given her cirrhosis I have changed from Percocet to Roxicodone to limit the acetaminophen she is receiving. Problem #2 liver cirrhosis: Suspected to be secondary to fatty liver the patient was on Lasix 40 mg by mouth twice a day I have titrated up her regimen her blood pressure renal function appeared to have room for this she did not put out a significant amount yesterday and as such I will also add Zaroxolyn to her regimen. I have also transitioned her to a sodium restricted diet. The patient is currently on Aldactone already Should her blood pressure be able to tolerate I would also like to in coming days to add a nonselective beta tadeo to help reduce portal hypertension. Early this coming week I think she would benefit from paracentesis and would also likely benefit from regularly scheduled outpatient paracentesis I hope with these measures for the long-term reduce fluid accumulation in both her abdomen and right pleural space Problem #3 thrombocytopenia: We'll check a peripheral smear analysis, this is chronic and likely secondary to her liver cirrhosis Problem #4 vertigo continue with meclizine Problem #5 obstructive sleep apnea continue his night CPAP Problem #6 depression continue Lexapro and trazodone Problem #7 gastroesophageal reflux disease: The patient on omeprazole Problem #8 type 2 diabetes patient on sliding scale insulin DISPOSITION: We'll continue to follow the patient closely. VS, I&O, 24H, Fishbone VS, I&O, 24H, Fishbone Vital Signs Date Time Temp Pulse Resp B/P Pulse Ox O2 Delivery O2 Flow Rate FiO2 08/28/16 09:29 18 08/28/16 08:00 97.1 90 104/54 90 Room Air 08/28/16 05:20 3.0 I&O- Last 24 Hours up to 6 AM 08/28/16 06:00 Intake Total 1305 ml Output Total 2346 ml Balance -1041 ml Laboratory Tests 2 08/27/16 11:15: Bedside Glucose (Misc Panel) 221H 08/27/16 14:10: Differential Pathologist's Review PLATELET MORPHOLOGY, Differential Slide Review Report, Peripheral Blood Smear Path Consult PERIPHERAL SMEAR 08/27/16 16:46: Bedside Glucose (Misc Panel) 186H 08/27/16 20:02: Bedside Glucose (Misc Panel) 211H 08/28/16 05:08: Anion Gap 8, White Blood Count 3.6L, Red Blood Count 3.94L, Hemoglobin 12.4, Hematocrit 38.3, Mean Corpuscular Volume 97.3H, Mean Corpuscular Hemoglobin 31.4 , Mean Corpuscular Hemoglobin Concent 32.3, Red Cell Distribution Width 13.5, Platelet Count 65L, Neutrophils (%) (Auto) 73.3H, Lymphocytes (%) (Auto) 15.6L, Monocytes (%) (Auto) 5.2H, Eosinophils (%) (Auto) 4.2H, Basophils (%) (Auto) 0.7 , Neutrophils # (Auto) 2.6, Lymphocytes # (Auto) 0.6L, Monocytes # (Auto) 0.2, Eosinophils # (Auto) 0.2, Basophils # (Auto) 0.0, Blood Urea Nitrogen 18, Creatinine 1.08H, Sodium Level 143, Potassium Level 4.3, Chloride Level 107, Carbon Dioxide Level 28, Calcium Level 8.2L, Glomerular Filtration Rate 54.9, Large Unclassified Cells # 0.0, Large Unclassified Cells % 1.0 Laboratory Tests 08/28/16 05:08 Calcium Level 8.2 L, Red Blood Count 3.94 L, Mean Corpuscular Volume 97.3 H, Mean Corpuscular Hemoglobin 31.4, Mean Corpuscular Hemoglobin Concent 32.3, Red Cell Distribution Width 13.5, Neutrophils (%) (Auto) 73.3 H, Lymphocytes (%) ( Auto) 15.6 L, Monocytes (%) (Auto) 5.2 H, Eosinophils (%) (Auto) 4.2 H, Basophils (%) (Auto) 0.7, Neutrophils # (Auto) 2.6, Lymphocytes # (Auto) 0.6 L, Monocytes # (Auto) 0.2, Eosinophils # (Auto) 0.2, Basophils # (Auto) 0.0 Microbiology 08/26/16 Blood Culture - Preliminary, Resulted No growth after 24 hours . All specim... 08/26/16 Blood Culture - Preliminary, Resulted No growth after 24 hours . All specim... 08/26/16 Acid Fast Stain, Received Pending 08/26/16 Mycobacterial Culture, Received Pending 08/26/16 Fungal Smear, Received Pending 08/26/16 Fungal Culture, Received Pending 08/26/16 Gram Stain - Final, Complete 08/26/16 Body Fluid Culture - Final, Complete 08/26/16 Anaerobic Culture - Final, Complete JOSE SANTANA MD Aug 28, 2016 09:41
--- NOTE | 2016-08-28 13:34 | IPN ---
DATE: 08/28/2016 Mrs. Palma has put an extraordinary amount out the chest tube, over 1600 mL. Its initial analysis looked as though it was chylous. Her pain is being well controlled at the chest tube insertion site. She feels a bit under the weather today, a little weak and shaky. I suspect it is because of her intake and output imbalance. Her vital signs, however, show a maximum temperature (T max) of 97.1 with a heart rate that ranges between 92 and 90 and is sinus rhythm, respiratory rate of 18 to 20 without the use of accessory muscles who is 90 to 91% saturated on room air. Blood pressure is ranging between 113/60 to 104/54. Her intake and output over the past 24 hours has been recorded as 2185 in and 2516 out for a negativity of 330 mL. She has put out 875 mL in urine output and 1640 mL from the chest tube. Weight today is 110.9 kg compared to 111 kg yesterday. PHYSICAL EXAMINATION: She has equal breath sounds on either side. I do not hear any wheezes, rhonchi or rales today. Percussion note is full to the diaphragm as far as I can tell through her morbid obesity. Cardiac exam is without murmurs, clicks, gallops or rubs. She has distant heart sounds. I cannot feel her point of maximum impulse (PMI). S1, S2 are normal. Abdomen is soft and nontender. Bowel sounds are positive. There is no hepatomegaly. No costovertebral angle tenderness that I can feel through her morbid obesity. Extremities show probably 1+ pretibial edema. No calf tenderness. No differential swelling of the upper extremities. Her skin is warm, dry and perfused without cyanosis or mottling, including that of the nail beds and the knees. Neck is supple. There is no jugular venous distention, no subcutaneous emphysema. Trachea is midline. Mouth shows her mucous membranes to be pink and moist. Lips and commissures without lesions. There is no thrush. Eyes show her pupils to be equal and reactive. Extraocular motions are intact. Sclerae anicteric. Neurologic shows II-XII intact along with gross motor and gross sensation intact. Gait is not tested. Psychiatric shows her to be awake and alert, oriented times three with appropriate mood and affect and conversational. Her white count today is 3.6 up from yesterday's of 3.0 with a hemoglobin and hematocrit of 12.4 and 38.3, unchanged from yesterday with a platelet count of 65, also unchanged from yesterday. Differential shows 73% neutrophils, 15% lymphocytes, 5% monocytes. There are no immature forms. No toxic granulations. Chemistries today show normal electrolytes with a BUN and creatinine of 18 and 1.01, slightly up from 16 and 0.94 yesterday. Calcium is 8.2 with a glucose of 225. Her chest x-ray today shows the lung fully expanded to the chest wall. Costophrenic angles are sharp. Chest tube is in good place. There are no infiltrates. Review of her CT, particularly that one done on 08/26/2016 shows a possible rent in the diaphragm on the sagittal view. I am wondering whether she has a hole in her diaphragm which is causing her ascites to appear in the pleural fluid. Tomorrow, I am going to ask radiology to both do a paracentesis and then inject methylene blue to see if it comes out the chest tube. I will go over the films closely with radiology tomorrow. If she does have a hole in the diaphragm, that would be a fairly straightforward fix. I could combine that with a talc pleurodesis with a reasonable expectation of success.
--- NOTE | 2016-08-28 14:16 | ECGEPIP ---
Stationary ECG Study [facility] Test Date: 2016-08-28 Pat Name: SAROJ JOHNSON Department: Room: [place] [address] Gender: F [employer]: DUGLAS : [id number] Requested By: JOSE SANTANA Order Number: [id number] Reading MD: Dwight Martin Measurements Intervals [place] Rate: 89 P: 31 MT: 128 QRS: -12 QRSD: 96 T: 55 QT: 382 QTc: 466 Interpretive Statements SINUS RHYTHM Rate decreased from tracing done 08-26-16 Borderline QTc prolongation Delayed anterior R wave progression Electronically Signed On 08-28-2016 14:15:51 EST by Dwight Martin
--- NOTE | 2016-08-28 18:49 | EDDOCDS ---
Nurse's Notes [facility] Name: Olga Palma Age: 60 yrs Sex: Female : 1955 Arrival Date: 08/26/2016 Time: 15:43 Bed 2 Private MD: Suzy Cesar M. Diagnosis: Pleural effusion in conditions classified elsewhere Presentation: 08/26 15:48 Presenting complaint: EMS states: Patient seen Monday for pleural effusion. Seen at [facility] for weight check. Patient having exertion dyspnea. Patient on 2 liters at office, 95%. EMS placed on 5 liters. 20 gauge left hand. Patient has cirrhosis in liver. Suicide/Homicide risk assessment- the patient denies having any suicidal and/or homicidal ideations and does not present with any other emotional, behavioral or mental health complaints. 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 Transition of care: patient was not received from another setting of care. 15:48 Acuity: CIARA Level 3 [facility] 15:48 Method Of Arrival: Ambulance [facility] 17:39 Adult Sepsis Screening: The patient does not have new or worsening altered mentation. pml Patient has a respiratory rate of greater than or equal to 22 (1 point). Systolic blood pressure is greater than 100. Patient has a qSOFA score of 1- Negative Sepsis Screen. Triage Assessment: 15:51 General: Appears uncomfortable, Behavior is appropriate for age, cooperative. Pain: jmb Denies pain. HIV screening NA for this visit Offered previously. Neurological: Level of Consciousness is awake, alert, obeys commands, Oriented to person, place, time, Speech is normal, Facial symmetry appears normal, Facial symmetry: tongue is midline. Cardiovascular: Capillary refill < 3 seconds Heart tones present Pulses are all present. Rhythm is. Respiratory: Onset: The symptoms/episode began/occurred gradually, Airway is patent Respiratory effort is labored, Respiratory pattern is regular, Breath sounds are diminished in right upper lobe, right middle lobe, right lower lobe, right posterior upper lobe, right posterior middle lobe and right posterior lower lobe. GI: Abdomen is obese, Bowel sounds present X 4 quads. Abd is soft X 4 quads. Derm: Skin is pink, warm & dry. Musculoskeletal: Range of motion intact in all extremities. Historical: - Allergies: Atacand (chest pain); candesartan; Hydrochlorothiazide (chest pain); - Home Meds: 1. aspirin 81 mg Oral chew 1 tab once daily 2. Calcium+D 500 mg(1,250mg) -200 unit oral tab twice a day 3. furosemide 40 mg Oral tab 1 tab 2 times per day 4. Iron CR 90mg Oral twice a day 5. Lantus 100 unit/mL Sub-Q soln 64 unit twice a day 6. Lexapro 20 mg Oral tab 1 tab once daily 7. meclizine 25 mg Oral tab 1 tab 2 times per day 8. Nexium 40 mg Oral cpDR 1 cap once daily 9. Novolog 100 unit/mL Sub-Q soln sliding scale 10. spironolactone 25 mg Oral tab 1 tab 2 times per day 11. trazodone 50 mg Oral tab 1 tab nightly - PMHx: Anxiety; Ascites; Cirrhosis; Diabetes - IDDM: controlled; GERD; Hypercholesterolemia; Hypertension; Pancreatitis; Vertigo; - PSHx: Hysterectomy; D & C; right knee surgery; left shoulder surgery; left elbow surgery; Hernia repair; Appendectomy; right shoulder; - Social history: Smoking status: Patient states was never smoker of tobacco. No barriers to communication noted, The patient speaks fluent Turkmen, Speaks appropriately for age. - Family history: Not pertinent. - : The pt / caregiver states he / she is not on anticoagulants. Home medication list is obtained from the patient. - Exposure Risk Screening:: None identified. Screenin:20 Screening information is obtained from the patient. Fall risk: No risks identified. bcj Assistance ADL's: requires no assistance with activities of daily living. Abuse/DV Screen: The patient / caregiver reports he/she is: not in a situation that causes fear, pain or injury. Nutritional screening: No deficits noted. Advance Directives: Currently, there is no health care proxy. home support is adequate. 16:41 Infection Control. lbd Assessment: 16:20 General: Appears ill, Behavior is cooperative. Pain: Denies pain. Cardiovascular: bcj Rhythm is sinus tachycardia Chest pain is denied. Respiratory: Airway is patent Respiratory effort is even, labored, Respiratory pattern is tachypnea Breath sounds are diminished in right upper lobe, right middle lobe and right lower lobe Reports shortness of breath at rest. Derm: Skin is dusky, pink. 17:37 General: Appears in no apparent distress, comfortable, Behavior is cooperative. Pain: pml Denies pain. Cardiovascular: Rhythm is sinus tachycardia Chest pain is denied. Respiratory: Airway is patent Respiratory effort is even, labored, Respiratory pattern is regular, Breath sounds are diminished in right upper lobe, right middle lobe and right lower lobe. Derm: Skin is pink, warm & dry. dusky. Vital Signs: 15:51 BP 130 / 77; Pulse 103; Resp 22; Weight 112.49 kg (R); Height 5 ft. 1 in. (154.94 cm) jmb (R); Pain 0/10; 15:59 Temp 98.9; Pulse Ox 96% on 5 lpm NC; jmb 17:35 BP 146 / 83; Pulse 104; Resp 22; Pulse Ox 93% on 4 lpm NC; Pain 0/10; pml 15:51 Body Mass Index 46.86 (112.49 kg, 154.94 cm) jmb Vitals: 15:51 Log In Time N/A - ambulance arrival. b 16:20 Refer to monitor trend for complete vital signs trends. [facility] ED Course: 15:44 Patient visited by Lita Guzman, Residential Appliance Repair Technician. lbd 15:44 Patient moved to Waiting lbd 15:45 Suzy Cesar is Private Physician. lbd 15:45 Baljinder Parker, RN is Primary Nurse. lbd 15:45 Bre Lamar MD is Attending Physician. sd1 15:45 Patient moved to 2 lbd 15:49 Triage Initiated jmb 15:51 Patient visited by Bre Lamar MD. sd1 16:06 EKG done. (by ED staff). Reviewed by Bre Lamar MD. jlf 16:08 Patient visited by Alisha Carbone PCA. jlf 16:08 Patient visited by Alisha Carbone PCA. jlf 16:13 -Arterial Blood Gas Sent. cs15 16:20 No apparent distress. Resting quietly. awaiting re-evaluation by ER physician. [facility] 16:20 The patient / caregiver is instructed regarding the plan of care and ED course. Patient j has correct armband on for positive identification. Placed in gown. Bed in low position. Call light in reach. Side rails up X2. Adult w/ patient. national sales director on. Pulse ox on. NIBP on. 16:20 Maintain field IV. Site clean & dry. Gauge & site: 20ga left hand. Labs drawn. (by ED bc staff). Sent per order to lab. O2 via nasal cannula \T\ 4L/min. 16:22 Chest, 1 View Returned. EDMS 16:24 Patient visited by Baljinder Parker RN. bcj 16:25 LIVER PROFILE Sent. bcj 16:44 [facility] [place] was scanned into Incoming [employer] Menu and attached to record. zo 16:58 Patient visited by Alisha Carbone PCA. jlf 17:07 Rika Chauhan is Hospitalizing Provider. sd1 17:37 No apparent distress. Resting quietly. Awaiting bed assignment. pml 17:37 IV is intact. No procedures done that require assistance. pml 17:57 Patient visited by Constance Yao RN. pml 08/27 08:32 T-Sheet-- Draft Copy was scanned into [employer] and attached to record. seh 11:55 ECG/EKG was scanned into [employer] and attached to record. gb 11:55 T-Sheet-- Draft Copy was scanned into [employer] and attached to record. gb 11:56 PCR was scanned into [employer] and attached to record. gb RT: 08/26 16:13 ABG's drawn from right radial artery allens test done and positive pressure held for 5 cs15 minutes no bleeding noted pressure bandage applied specimen sent pt. tolerated well. O2 via nasal cannula \T\ 5L/min. Order Results: Lab Order: -Arterial Blood Gas; SPEC'M 08/26/16 16:11 Test: ABG pH (ARTERIAL); Value: 7.486; Range: 7.350-7.450; Abnormal: Above high normal; Units: UNITS; Status: F Test: ABG PARTIAL PRESSURE CO2; Value: 34.0; Range: 35.0-45.0; Abnormal: Below low normal; Units: mmHg; Status: F Test: ABG PARTIAL PRESSURE O2; Value: 90.2; Range: 75.0-100.0; Units: mmHg; Status: F Test: ABG TOTAL CO2; Value: 26.1; Range: 23.0-31.0; Units: MEQ/L; Status: F Test: ABG HCO3; Value: 25.1; Range: 22.0-26.0; Units: MEQ/L; Status: F Test: ABG BASE EXCESS; Value: 2.2; Range: -2.0-2.0; Abnormal: Above high normal; Status: F Test: ABG STANDARD HCO3; Value: 26.4; Range: 22.0-26.0; Abnormal: Above high normal; Units: MEQ/L; Status: F Test: ABG O2 SATURATION; Value: 97.7; Range: 95.0-99.0; Units: %; Status: F Test: ABG DEVICE; Value: NASAL JUDITH; Status: F Lab Order: B-Type Natiuretic Peptide; SPEC'M 08/26/16 16:11 Test: BRAIN NATRIURETIC PEPTIDE; Value: 31.1; Range: <100; Units: PG/ML; Status: F Lab Order: Basic Metabolic Profile; SPEC'M 08/26/16 16:10 Test: GLUCOSE, FASTING; Value: 113; Range: 80-110; Abnormal: Above high normal; Units: MG/DL; Status: F Test: BLOOD UREA NITROGEN; Value: 12; Range: 7-18; Units: MG/DL; Status: F Test: CREATININE FOR GFR; Value: 0.85; Range: 0.55-1.02; Units: MG/DL; Status: F Test: GLOMERULAR FILTRATION RATE; Value: > 60.0; Range: >45; Status: F Test: SODIUM LEVEL; Value: 145; Range: 136-145; Units: MEQ/L; Status: F Test: POTASSIUM SERUM; Value: 3.6; Range: 3.5-5.1; Units: MEQ/L; Status: F Test: CHLORIDE LEVEL; Value: 110; Range: 98-107; Abnormal: Above high normal; Units: MEQ/L; Status: F Test: CARBON DIOXIDE LEVEL; Value: 27; Range: 21-32; Units: MEQ/L; Status: F Test: ANION GAP; Value: 8; Range: 8-16; Units: MEQ/L; Status: F Test: CALCIUM LEVEL; Value: 8.7; Range: 8.8-10.2; Abnormal: Below low normal; Units: MG/DL; Status: F Test Note: ; Units are mL/min/1.73 m2 Chronic Kidney Disease Staging per NKF: Stage I & II GFR >=60 Normal to Mildly Decreased Stage III GFR 30-59 Moderately Decreased Stage IV GFR 15-29 Severely Decreased Stage V GFR <15 Very Little GFR Left ESRD GFR <15 on KETTLE CLEANER Lab Order: CBC with Diff; SPEC'M 08/26/16 16:11 Test: WHITE BLOOD COUNT; Value: 4.3; Range: 4.0-10.0; Units: K/mm3; Status: F Test: RED BLOOD COUNT; Value: 4.63; Range: 4.00-5.40; Units: M/mm3; Status: F Test: HEMOGLOBIN; Value: 14.5; Range: 12.0-16.0; Units: g/dl; Status: F Test: HEMATOCRIT; Value: 43.5; Range: 36.0-47.0; Units: %; Status: F Test: MEAN CORPUSCULAR VOLUME; Value: 93.9; Range: 80.0-96.0; Units: fl; Status: F Test: MEAN CORPUSCULAR HEMOGLOBIN; Value: 31.3; Range: 27.0-33.0; Units: pg; Status: F Test: MEAN CORPUSCULAR HGB CONC; Value: 33.3; Range: 32.0-36.5; Units: g/dl; Status: F Test: RED CELL DISTRIBUTION WIDTH; Value: 14.4; Range: 11.5-14.5; Units: %; Status: F Test: PLATELET COUNT, AUTOMATED; Value: 74; Range: 150-450; Abnormal: Below low normal; Units: k/mm3; Status: F Test: NEUTROPHILS %; Value: 65.4; Range: 36.0-66.0; Units: %; Status: F Test: LYMPH %; Value: 23.2; Range: 24.0-44.0; Abnormal: Below low normal; Units: %; Status: F Test: MONO %; Value: 5.3; Range: 0.0-5.0; Abnormal: Above high normal; Units: %; Status: F Test: EOS %; Value: 3.3; Range: 0.0-3.0; Abnormal: Above high normal; Units: %; Status: F Test: BASO %; Value: 1.3; Range: 0.0-1.0; Abnormal: Above high normal; Units: %; Status: F Test: LARGE UNSTAINED CELL %; Value: 1.4; Range: 0.0-4.0; Units: %; Status: F Test: NEUTROPHILS #; Value: 2.8; Range: 1.8-7.7; Units: K/mm3; Status: F Test: LYMPH #; Value: 1.0; Range: 1.5-4.5; Abnormal: Below low normal; Units: K/mm3; Status: F Test: MONO #; Value: 0.2; Range: 0.0-0.8; Units: K/mm3; Status: F Test: EOS #; Value: 0.1; Range: 0.0-0.50; Units: K/mm3; Status: F Test: BASO #; Value: 0.1; Range: 0.0-0.2; Units: K/mm3; Status: F Test: LARGE UNSTAINED CELL #; Value: 0.1; Range: 0.0-0.4; Units: K/mm3; Status: F Lab Order: Cardiac Injury Profile; SPEC'M 08/26/16 16:10 Test: CPK CREATINE PHOSPHOKINASE; Value: 49; Range: 26-192; Units: U/L; Status: F Test: CK-MB VALUE MASS; Value: 1.0; Range: 0.0-3.6; Units: NG/ML; Status: F Test: MB/CK RELATIVE INDEX; Value: 2.04; Range: < OR =4; Status: F Test Note: ; DIAGNOSIS CRITERIA MMB ng/ml Relative Index (RI) NON-AMI < or = 5 N/A RINCON ZONE > 5 < or = 4 AMI > 5 > 4 Lab Order: Troponin; SPEC'M 08/26/16 16:10 Test: TROPONIN I; Value: < 0.02; Range: < 0.10; Units: NG/ML; Status: F Test Note: ; Troponin I Reference Interval for [facility] LOCI: 99th Percentile= 0.00-0.045 ng/ml Risk Stratification: <= 0.10 ng/ml Decreased Risk for Adverse Clinical Events. 0.10-1.50 ng/ml Increased Risk for Adverse Clinical Events. Evaluation of additional criterion and/or repeat testing in 2-6 hours is suggested to rule out myocardial damage. >= 1.50 ng/ml Indicative of Myocardial Injury. Lab Order: PT/INR; SPEC'M 08/26/16 16:10 Test: PROTHROMBIN TIME; Value: 15.3; Range: 12.3-14.5; Abnormal: Above high normal; Units: SECONDS; Status: F Test: INR; Value: 1.20; Status: F Test Note: ; THERAPUTIC HUMAN INR VALUES INDICATIONS NORMAL RANGES PROPHYLAXIS/TREATMENT OF: VENOUS THROMBOSIS 2.0-3.0 PULMONARY EMBOLISM 2.0-3.0 PREVENTION OF SYSTEMIC EMBOLISM FROM: TISSUE HEART VALVES 2.0-3.0 ACUTE MYOCARDIAL INFARCTION 2.0-3.0 VALVULAR HEART DISEASE 2.0-3.0 ATRIAL FIBRILLATION 2.0-3.0 MECHANICAL VALVES(HIGH RISK) 2.5-3.5 RECURRENT MYOCARDIAL INFARCTION 2.5-3.5 Lab Order: LIVER PROFILE; SPEC'M 08/26/16 16:10 Test: AST/SGOT; Value: 40; Range: 15-37; Abnormal: Above high normal; Units: U/L; Status: F Test: ALT/SGPT; Value: 34; Range: 12-78; Units: U/L; Status: F Test: ALKALINE PHOSPHATASE; Value: 229; Range: 45-117; Abnormal: Above high normal; Units: U/L; Status: F Test: BILIRUBIN,TOTAL; Value: 0.5; Range: 0.2-1.0; Units: MG/DL; Status: F Test: BILIRUBIN,DIRECT; Value: 0.2; Range: 0.0-0.2; Units: MG/DL; Status: F Test: TOTAL PROTEIN; Value: 7.4; Range: 6.4-8.2; Units: GM/DL; Status: F Test: ALBUMIN; Value: 3.2; Range: 3.2-5.2; Units: GM/DL; Status: F Test: ALBUMIN/GLOBULIN RATIO; Value: 0.76; Range: 1.00-1.93; Abnormal: Below low normal; Status: F Lab Order: HEMOGLOBIN A1C; SPEC'M 08/26/16 16:10 Test: HEMOGLOBIN A1c; Value: 7.8; Range: 4.5-6.2; Abnormal: Above high normal; Units: %; Status: F Test: ESTIMATED AVERAGE GLUCOSE; Value: 177; Range: 60-110; Abnormal: Above high normal; Units: MG/DL; Status: F Lab Order: LACTATE DEHYDROGENASE; SPEC'M 08/26/16 16:10 Test: LDH LACTATE DEHYDROGENASE; Value: 197; Range: 84-246; Units: U/L; Status: F Radiology Order: Chest, 1 View Test: Chest, 1 View REASON FOR EXAMINATION: Shortness of Breath; Clinical: Shortness of breath.; ; Comparison: 08/22/2016.; ; Findings:; Large right pleural effusion has increased since prior examination. Underlying; passive atelectasis suggested. Aerated lung sweet appear clear. Visualized; portions of the cardiac silhouette appears stable. No pneumothorax.; ; Impression:; Large right pleural effusion increased from prior examination.; ; ; Signed by; Pk Hansen MD 08/26/2016 04:06 P; Outcome: 17:08 Decision to Hospitalize by Provider. sd1 17:37 Discharge Assessment: patient administered narcotics - no. The following High Risk pml Discharge criteria are identified: None. Admitted to PCU accompanied by nurse, accompanied by tech, via stretcher, with oxygen, on monitor. Condition: stable. CT Study completed. Admission hand-off: Report called to Cheli Sosa. Property :Personal belongings accompany Pt. 17:47 Patient left the ED. jc4 Signatures: Dispatcher [employer] Bre Osborne MD MD sd1 Lita Guzman, Residential Appliance Repair Technician Unit lbd Baljinder Parker, RN Michelle Renner, Kevin Reg Damari De Anda Jennifer, RN RN jc4 Constance Yao RN RN pml Becker, Joshua, RN RN jmb Forney, Jordain, BOO DRAFTER DETAIL jlf Liam Quiñonez,RT RT Bre Epstein se Chart Complete MTDD
--- NOTE | 2016-08-28 18:49 | EDDOCDS ---
Physician Documentation [facility] Name: Olga Palma Age: 60 yrs Sex: Female : 1955 Arrival Date: 08/26/2016 Time: 15:43 Bed 2 Private MD: Suzy Cesar M. Disposition: 08/26/16 17:08 Hospitalization ordered by Rika Chauhan for Inpatient Admission. Preliminary diagnosis is Pleural effusion in conditions classified elsewhere. - [facility] - Status is Inpatient Admission. jc4 - Condition is Stable. - Problem is an acute exacerbation. - Symptoms are unchanged. Historical: - Allergies: Atacand (chest pain); candesartan; Hydrochlorothiazide (chest pain); - Home Meds: 1. aspirin 81 mg Oral chew 1 tab once daily 2. Calcium+D 500 mg(1,250mg) -200 unit oral tab twice a day 3. furosemide 40 mg Oral tab 1 tab 2 times per day 4. Iron CR 90mg Oral twice a day 5. Lantus 100 unit/mL Sub-Q soln 64 unit twice a day 6. Lexapro 20 mg Oral tab 1 tab once daily 7. meclizine 25 mg Oral tab 1 tab 2 times per day 8. Nexium 40 mg Oral cpDR 1 cap once daily 9. Novolog 100 unit/mL Sub-Q soln sliding scale 10. spironolactone 25 mg Oral tab 1 tab 2 times per day 11. trazodone 50 mg Oral tab 1 tab nightly - PMHx: Anxiety; Ascites; Cirrhosis; Diabetes - IDDM: controlled; GERD; Hypercholesterolemia; Hypertension; Pancreatitis; Vertigo; - PSHx: Hysterectomy; D & C; right knee surgery; left shoulder surgery; left elbow surgery; Hernia repair; Appendectomy; right shoulder; - Social history: Smoking status: Patient states was never smoker of tobacco. No barriers to communication noted, The patient speaks fluent Armenian, Speaks appropriately for age. - Family history: Not pertinent. - : The pt / caregiver states he / she is not on anticoagulants. Home medication list is obtained from the patient. - Exposure Risk Screening:: None identified. Vital Signs: 08/26 15:51 BP 130 / 77; Pulse 103; Resp 22; Weight 112.49 kg / 248 lbs (R); Height 5 ft. 1 in. jmb (154.94 cm) (R); Pain 0/10; 15:59 Temp 98.9; Pulse Ox 96% on 5 lpm NC; jmb 17:35 BP 146 / 83; Pulse 104; Resp 22; Pulse Ox 93% on 4 lpm NC; Pain 0/10; pml 15:51 Body Mass Index 46.86 (112.49 kg, 154.94 cm) [facility] MDM: 15:52 -Blood Culture (Adults Only), peripheral from different site, or from device/port/PICC sd1 etc. if present ordered. 15:52 Lock Operator/Pulse Ox/q 15 min VS ordered. sd1 15:52 IV Saline Lock ordered. sd1 15:52 Oxygen at 4L/Min NC or Home dosage ordered. sd1 15:52 Rhythm Strip to chart ordered. sd1 15:53 -Arterial Blood Gas Ordered. EDMS 15:53 B-Type Natiuretic Peptide Ordered. EDMS 15:53 Basic Metabolic Profile Ordered. EDMS 15:53 CBC with Diff Ordered. EDMS 15:53 Cardiac Injury Profile Ordered. EDMS 15:53 Troponin Ordered. EDMS 15:53 -Blood Culture Ordered. EDMS 15:53 Chest, 1 View Ordered. EDMS 15:53 ECG WITH READING ER PHYS+CARDIAG ordered. EDMS 15:55 -Blood Culture (Adults Only), peripheral from different site, or from device/port/PICC lbd etc. if present complete. 16:06 BLOOD CULTURES Ordered. EDMS 16:19 PT/INR Ordered. EDMS 16:22 LIVER PROFILE Ordered. EDMS 16:43 Financial registration complete. zo 16:44 [facility] [place] Payment Agreement was scanned into [employer] and attached to record. zo 17:01 -Arterial Blood Gas Reviewed. sd1 17:01 Basic Metabolic Profile Reviewed. sd1 17:01 CBC with Diff Reviewed. sd1 17:01 PT/INR Reviewed. sd1 17:01 LIVER PROFILE Reviewed. sd1 17:01 B-Type Natiuretic Peptide Reviewed. sd1 17:01 Cardiac Injury Profile Reviewed. sd1 17:01 Troponin Reviewed. sd1 17:01 Chest, 1 View Reviewed. sd1 17:03 Ammonia ([place] Tube on Ice, Not [place]) Ordered. EDMS 17:11 Admission / Observation Status ordered. EDMS 17:14 PHYSICAL THERAPY EVAL & TREAT ordered. EDMS 17:15 CT Chest With Contrast Ordered. EDMS 17:16 CELL COUNT PLEURAL FLUID Ordered. EDMS 17:16 TOTAL PROTEIN, BODY FLUID Ordered. EDMS 17:16 LDH, BODY FLUID Ordered. EDMS 17:16 GLUCOSE, BODY FLUID Ordered. EDMS 17:16 AMYLASE, BODY FLUID Ordered. EDMS 17:16 PH, BODY FLUID Ordered. EDMS 17:16 HEMOGLOBIN A1C Ordered. EDMS 17:17 AFB SMEAR & CULTURE Ordered. EDMS 17:17 BODY FLUID CULTURE AND GS Ordered. EDMS 17:17 FUNGUS SMEAR & CULTURE Ordered. EDMS 17:36 ARTERIAL BLOOD GAS Ordered. EDMS 17:37 Chest, 2 view PA, Lat Ordered. EDMS 17:37 Chest, 2 view PA, Lat Ordered. EDMS 17:38 Chest, 2 view PA, Lat Ordered. EDMS 17:38 Chest, 2 view PA, Lat Ordered. EDMS 17:38 Chest, 2 view PA, Lat Ordered. EDMS 17:38 Chest, 2 view PA, Lat Ordered. EDMS 17:38 Chest, 2 view PA, Lat Ordered. EDMS 17:38 Chest, 2 view PA, Lat Ordered. EDMS 17:39 Chest, 2 view PA, Lat Ordered. EDMS 17:39 Chest, 2 view PA, Lat Ordered. EDMS 17:39 Admission / Observation Status ordered. EDMS 17:39 REGULAR DIET ordered. EDMS 08/27 08:32 T-Sheet-- Draft Copy was scanned into [employer] and attached to record. seh 11:55 ECG/EKG was scanned into [employer] and attached to record. gb 11:55 T-Sheet-- Draft Copy was scanned into [employer] and attached to record. gb 11:56 PCR was scanned into [employer] and attached to record. gb Signatures: Dispatcher [employer] EDMA Bre Lamar MD MD sd1 Daly, Linda, Metal Dealer Unit lbd Baljinder Parker RN RN Michelle Villa, Kevin Reg gb Damari Aguilar Jennifer RN RN jc4 Nadir Coello RN RN Jared Diaz RN RN mts Hoffert, [facility] The chart was reviewed and I authenticate all verbal orders and agree with the evaluation and treatment provided.Corrections: (The following items were deleted from the chart) 08/26 16:22 16:19 LIVER PROFILE+LAB ordered. EDMS EDMS 17:15 17:15 NO ADDED SALT DIET ordered. EDMS EDMS 17:15 17:15 NO ADDED SALT DIET ordered. EDMS EDMS 17:20 16:24 CT ABD & PELVIS WITH CONTRAST+CT ordered. EDMS EDMS 17:21 17:16 LACTATE DEHYDROGENASE ordered. EDMS EDMS 17:21 17:16 TOTAL PROTEIN ordered. EDMS EDMS 17:39 17:15 CONSISTENT CARBOHYDRATES ordered. EDMS EDMS Attachments: 16:44 [facility] Payment Agreement zo 11:55 ECG/EKG gb 11:55 T-Sheet-- Draft Copy gb Chart Complete MTDD
--- NOTE | 2016-08-28 18:49 | EDDOCDS ---
Physician Documentation [facility] Name: Olga Palma Age: 60 yrs Sex: Female : 1955 Arrival Date: 08/26/2016 Time: 15:43 Bed 2 Private MD: Suzy Cesar M. Disposition: 08/26/16 17:08 Hospitalization ordered by Rika Chauhan for Inpatient Admission. Preliminary diagnosis is Pleural effusion in conditions classified elsewhere. - [facility] - Status is Inpatient Admission. [id number] - Condition is Stable. - Problem is an acute exacerbation. - Symptoms are unchanged. Historical: - Allergies: Atacand (chest pain); candesartan; Hydrochlorothiazide (chest pain); - Home Meds: 1. aspirin 81 mg Oral chew 1 tab once daily 2. Calcium+D 500 mg(1,250mg) -200 unit oral tab twice a day 3. furosemide 40 mg Oral tab 1 tab 2 times per day 4. Iron CR 90mg Oral twice a day 5. Lantus 100 unit/mL Sub-Q soln 64 unit twice a day 6. Lexapro 20 mg Oral tab 1 tab once daily 7. meclizine 25 mg Oral tab 1 tab 2 times per day 8. Nexium 40 mg Oral cpDR 1 cap once daily 9. Novolog 100 unit/mL Sub-Q soln sliding scale 10. spironolactone 25 mg Oral tab 1 tab 2 times per day 11. trazodone 50 mg Oral tab 1 tab nightly - PMHx: Anxiety; Ascites; Cirrhosis; Diabetes - IDDM: controlled; GERD; Hypercholesterolemia; Hypertension; Pancreatitis; Vertigo; - PSHx: Hysterectomy; D & C; right knee surgery; left shoulder surgery; left elbow surgery; Hernia repair; Appendectomy; right shoulder; - Social history: Smoking status: Patient states was never smoker of tobacco. No barriers to communication noted, The patient speaks fluent German, Speaks appropriately for age. - Family history: Not pertinent. - : The pt / caregiver states he / she is not on anticoagulants. Home medication list is obtained from the patient. - Exposure Risk Screening:: None identified. Vital Signs: 08/26 15:51 BP 130 / 77; Pulse 103; Resp 22; Weight 112.49 kg / 248 lbs (R); Height 5 ft. 1 in. jmb (154.94 cm) (R); Pain 0/10; 15:59 Temp 98.9; Pulse Ox 96% on 5 lpm NC; jmb 17:35 BP 146 / 83; Pulse 104; Resp 22; Pulse Ox 93% on 4 lpm NC; Pain 0/10; pml 15:51 Body Mass Index 46.86 (112.49 kg, 154.94 cm) [facility] MDM: 15:52 -Blood Culture (Adults Only), peripheral from different site, or from device/port/PICC sd1 etc. if present ordered. 15:52 Agriculture Worker/Pulse Ox/q 15 min VS ordered. sd1 15:52 IV Saline Lock ordered. sd1 15:52 Oxygen at 4L/Min NC or Home dosage ordered. sd1 15:52 Rhythm Strip to chart ordered. sd1 15:53 -Arterial Blood Gas Ordered. EDMS 15:53 B-Type Natiuretic Peptide Ordered. EDMS 15:53 Basic Metabolic Profile Ordered. EDMS 15:53 CBC with Diff Ordered. EDMS 15:53 Cardiac Injury Profile Ordered. EDMS 15:53 Troponin Ordered. EDMS 15:53 -Blood Culture Ordered. EDMS 15:53 Chest, 1 View Ordered. EDMS 15:53 ECG WITH READING ER PHYS+CARDIAG ordered. EDMS 15:55 -Blood Culture (Adults Only), peripheral from different site, or from device/port/PICC lbd etc. if present complete. 16:06 BLOOD CULTURES Ordered. EDMS 16:19 PT/INR Ordered. EDMS 16:22 LIVER PROFILE Ordered. EDMS 16:43 Financial registration complete. zo 16:44 [facility] [place] Payment Agreement was scanned into [employer] and attached to record. zo 17:01 -Arterial Blood Gas Reviewed. sd1 17:01 Basic Metabolic Profile Reviewed. sd1 17:01 CBC with Diff Reviewed. sd1 17:01 PT/INR Reviewed. sd1 17:01 LIVER PROFILE Reviewed. sd1 17:01 B-Type Natiuretic Peptide Reviewed. sd1 17:01 Cardiac Injury Profile Reviewed. sd1 17:01 Troponin Reviewed. sd1 17:01 Chest, 1 View Reviewed. sd1 17:03 Ammonia ([place] Tube on Ice, Not [place]a [place]) Ordered. EDMS 17:11 Admission / Observation Status ordered. EDMS 17:14 PHYSICAL THERAPY EVAL & TREAT ordered. EDMS 17:15 CT Chest With Contrast Ordered. EDMS 17:16 CELL COUNT PLEURAL FLUID Ordered. EDMS 17:16 TOTAL PROTEIN, BODY FLUID Ordered. EDMS 17:16 LDH, BODY FLUID Ordered. EDMS 17:16 GLUCOSE, BODY FLUID Ordered. EDMS 17:16 AMYLASE, BODY FLUID Ordered. EDMS 17:16 PH, BODY FLUID Ordered. EDMS 17:16 HEMOGLOBIN A1C Ordered. EDMS 17:17 AFB SMEAR & CULTURE Ordered. EDMS 17:17 BODY FLUID CULTURE AND GS Ordered. EDMS 17:17 FUNGUS SMEAR & CULTURE Ordered. EDMS 17:36 ARTERIAL BLOOD GAS Ordered. EDMS 17:37 Chest, 2 view PA, Lat Ordered. EDMS 17:37 Chest, 2 view PA, Lat Ordered. EDMS 17:38 Chest, 2 view PA, Lat Ordered. EDMS 17:38 Chest, 2 view PA, Lat Ordered. EDMS 17:38 Chest, 2 view PA, Lat Ordered. EDMS 17:38 Chest, 2 view PA, Lat Ordered. EDMS 17:38 Chest, 2 view PA, Lat Ordered. EDMS 17:38 Chest, 2 view PA, Lat Ordered. EDMS 17:39 Chest, 2 view PA, Lat Ordered. EDMS 17:39 Chest, 2 view PA, Lat Ordered. EDMS 17:39 Admission / Observation Status ordered. EDMS 17:39 REGULAR DIET ordered. EDMS 08/27 08:32 T-Sheet-- Draft Copy was scanned into [employer] and attached to record. seh 11:55 ECG/EKG was scanned into [employer] and attached to record. gb 11:55 T-Sheet-- Draft Copy was scanned into [employer] and attached to record. gb 11:56 PCR was scanned into [employer] and attached to record. gb Signatures: Dispatcher [employer] EDMT Bre Lamar MD MD sd1 Daly, Linda, Inspector [employer] lbd Baljinder Parker RN RN Michelle Villa, Kevin Reg gb Damari Aguilar Jennifer RN RN [id number] Nadir Coello RN RN Jared Diaz RN RN mts Hoffert, Sarah [facility] The chart was reviewed and I authenticate all verbal orders and agree with the evaluation and treatment provided.Corrections: (The following items were deleted from the chart) 08/26 16:22 16:19 LIVER PROFILE+LAB ordered. EDMS EDMS 17:15 17:15 NO ADDED SALT DIET ordered. EDMS EDMS 17:15 17:15 NO ADDED SALT DIET ordered. EDMS EDMS 17:20 16:24 CT ABD & PELVIS WITH CONTRAST+CT ordered. EDMS EDMS 17:21 17:16 LACTATE DEHYDROGENASE ordered. EDMS EDMS 17:21 17:16 TOTAL PROTEIN ordered. EDMS EDMS 17:39 17:15 CONSISTENT CARBOHYDRATES ordered. EDMS EDMS Attachments: 16:44 [facility] Payment Agreement zo 11:55 ECG/EKG gb 11:55 T-Sheet-- Draft Copy gb Chart Complete MTDD
[2016-08-28] MEDS: traZODone 50 MG TAB PO SCH (21:11)
[2016-08-29] VITALS (23 sets, daily range): BP systolic 106–136; BP diastolic 51–93; PULSE 90–96
[2016-08-29] MEDS: LEVALBUTEROL 1.25 MG/0.5 ML CONCENTRATE NEB NEB SCH ×4 (01:23→19:42)
[2016-08-29 05:31] LABS: BASO % 0.3 % (0.0-1.0); EOS # 0.2 K/mm3 (0.0-0.50); EOS % 5.3 % (0.0-3.0); LARGE UNSTAINED CELL # 0.1 K/mm3 (0.0-0.4); LARGE UNSTAINED CELL % 1.9 % (0.0-4.0); LYMPH # 0.7 K/mm3 (1.5-4.5); LYMPH % 21.7 % (24.0-44.0); MEAN CORPUSCULAR HEMOGLOBIN 32.1 pg (27.0-33.0); MEAN CORPUSCULAR HGB CONC 33.6 g/dl (32.0-36.5); MEAN CORPUSCULAR VOLUME 95.3 fl (80.0-96.0); MONO # 0.2 K/mm3 (0.0-0.8); MONO % 6.2 % (0.0-5.0); NEUTROPHILS # 2.1 K/mm3 (1.8-7.7); NEUTROPHILS % 64.6 % (36.0-66.0); RED CELL DISTRIBUTION WIDTH 13.4 % (11.5-14.5); WHITE BLOOD COUNT 3.2 K/mm3 (4.0-10.0)
[2016-08-29] MEDS: KETOROLAC 30 MG/ML VIAL (J1885) IV SCH ×5 (05:37→23:49)
[2016-08-29 05:53] LABS: PLATELET COUNT, AUTOMATED 67 k/mm3 (150-450)
[2016-08-29 06:04] LABS: ALBUMIN 2.7 GM/DL (3.2-5.2); ALBUMIN/GLOBULIN RATIO 0.73 (1.00-1.93); BILIRUBIN,TOTAL 0.5 MG/DL (0.2-1.0); CALCIUM LEVEL 8.9 MG/DL (8.8-10.2); CREATININE FOR GFR 1.18 MG/DL (0.55-1.02); GLOMERULAR FILTRATION RATE 49.6 (>45); PHOSPHORUS LEVEL 3.6 MG/DL (2.5-4.9); TOTAL PROTEIN 6.4 GM/DL (6.4-8.2)
[2016-08-29] MEDS: CALCIUM CARBONATE 500 MG CHEW U/D PO SCH ×3 (08:23→17:30)
[2016-08-29] MEDS: MOM 30ML SUSPENSION UDC PO SCH (08:23)
[2016-08-29] MEDS: DOCUSATE SODIUM 100 MG CAP PO SCH ×2 (08:24→21:48)
[2016-08-29] MEDS: SPIRONOLACTONE 25 MG TAB PO SCH ×2 (08:24→21:48)
[2016-08-29] MEDS: ESCITALOPRAM OXALATE 10 MG TAB (LEXAPRO) PO SCH (08:24)
[2016-08-29] MEDS: MECLIZINE 25 MG TABLET PO SCH ×2 (08:24→21:48)
[2016-08-29] MEDS: HumaLOG INSULIN (NovoLOG) PER UNIT SC SCH ×4 (08:24→21:00)
[2016-08-29] MEDS: OMEPRAZOLE 20 MG CAP PO SCH (08:25)
[2016-08-29] MEDS: oxyCODONE 5MG TAB PO PRN ×2 (08:25→20:09)
--- NOTE | 2016-08-29 08:33 | REP ---
Clinical: Follow up pleural effusion. Technique: PA and lateral. Comparison: 08/27/2016. Findings: A right-sided chest tube is identified, but its exact location and position cannot be confirmed due to abundant overlying EKG wires and leads. A small residual right apical pneumothorax is identified and unchanged. No obvious pleural effusion by lateral radiograph. Mediastinum and cardiac silhouette are normal. Left hemithorax is clear. Impression: Small residual right apical pneumothorax unchanged. Exact location of right chest tube cannot be confirmed due to overlying EKG wires. Signed by Pk Hansen MD 08/29/2016 08:25 A
--- NOTE | 2016-08-29 09:55 | REP ---
CHEST X-RAY: Two views. HISTORY: Pleural effusion. Comparison study August 28, 2016. FINDINGS: EKG monitoring electrodes overlie the chest. There is a zone of mild coarse linear plate-like atelectasis in the left perihilar region unchanged. There is a tiny 1 mm sliver of apical pleural air on the right. Right chest tube remains in place just inside the right pleural space with the side-hole parallel to the rib cage laterally. Right hemidiaphragm is somewhat elevated. Pleural angles are sharp. IMPRESSION: A tiny right-sided pneumothorax. Right chest tube in place. Plate-like atelectasis left perihilar region. Signed by Lonny Fu MD 08/29/2016 01:35 P
--- NOTE | 2016-08-29 10:45 | REP ---
CT CHEST WITHOUT CONTRAST: 08/29/2016 INDICATION: Assess chest tube position, ascites Comparison made with chest x-rays 08/19/2016, 08/27/2016, CT 08/26/2016, and report only from 08/26/2016 (images and not currently due to technical factors) TECHNIQUE: 3 mm contiguous spiral axial sections performed through chest without contrast. The thoracic aorta is without aneurysm. The heart is of normal size. There are scattered sub cm nonspecific mediastinal and hilar nodes. The previous moderate right pleural effusion has near totally resolved. Right posterior apical chest tube is again identified and very minimal right apical pneumothorax of less than 10% volume. Small amount of fibroatelectatic changes are seen within the lung bases, right greater than left. There is asymmetry within the thyroid lobes, left larger than right. Small left posterior thyroid nodule of 8 mm size is suggested. The liver has a scalloped margin and is at least mildly enlarged yet incompletely included in view. The spleen is also enlarged, 14 cm craniocaudal dimension. Visualized portions of pancreas within normal limits. Multiple layering gravel type stones are seen in the dependent portion of gallbladder. There is no gallbladder wall thickening or significant biliary dilatation. Adrenal glands are normal. The left kidney is omitted from view. The visualized portions of right kidney within normal limits. There is a small recanalized umbilical vein consistent with portal venous hypertension. There are venous collaterals seen medial to the proximal stomach. S small amount of intra-abdominal ascites, is improved from prior study. IMPRESSION: Right chest tube is in satisfactory position. Previous moderate right pleural effusion is near totally resolved. Minimal right apical pneumothorax seen anteriorly and posteriorly of less than 10 percent volume. Hepatomegaly and splenomegaly again noted. Abdominal ascites is decreased/improved since 08/22/2016. Portal venous hypertension. Multiple gravel type stones are again noted within the gallbladder. Signed by Tena Sosa MD 08/29/2016 08:58 P
[2016-08-29] MEDS: LEVEMIR (INSULIN DETEMIR) 1 UNITS/0.01ML SC SCH ×2 (10:46→21:49)
[2016-08-29] MEDS ORDERED: MIDAZOLAM INJ 2 MG/2 ML VIAL (J2250) As Ordered ONE (12:12)
--- NOTE | 2016-08-29 13:25 | IPNPDOC ---
Date/Time Seen The patient was seen on 08/29/16 at 13:19. Progress Note SUBJECTIVE: The patient reports that she feels well she does not have any further symptoms of heartburn no chest pain or shortness of breath she tells me that the pain associated with her chest tube is improving every day OBJECTIVE: PHYSICAL EXAMINATION: VITAL SIGNS: 93% on room air otherwise Please see below. GENERAL: Pleasant obese female lying in bed at 30 angle watching television she is in no distress HEENT: Pupils are equally round reactive to light she is moist mucous membranes difficult to assess for any central venous pressure elevation secondary to body habitus CARDIOVASCULAR: S1-S2 regular. RESPIRATORY: Fairly clear to auscultation she has diminished breath sounds at base chest tube dressing is clean dry and intact draining serosynovitis fluid. ABDOMINAL: Morbidly obese no tense ascites, likely shifting dullness and fluid wave EXTREMITIES: No clubbing cyanosis 1+ edema bilaterally LABORATORY DATA: Please see below. MICROBIOLOGY: Negative or pending otherwise Please see below. IMAGING: Chest x-ray this morning is currently pending CT scan of the chest from today Right chest tube is in satisfactory position. Previous moderate right pleural effusion is near totally resolved. Minimal right apical pneumothorax seen anteriorly and posteriorly is of less than 10 percent volume. Hepatomegaly and splenomegaly again noted. Abdominal ascites is decreased/improved since 08/22/2016. Portal venous hypertension DVT prophylaxis ordered?: Sequentials and teds no pharmacological agents secondary to thrombocytopenia ASSESSMENT AND PLAN: This is a 60-year-old female with recurrent right pleural effusion secondary to liver cirrhosis. Problem #1 recurrent right pleural effusion: Dr. Parker's help greatly appreciated. The patient's clinical status is improved following chest tube placement and today there is decrease output with optimization of her liver cirrhosis however the long-term question remains what to do to prevent recurrence. The patient is not yet a candidate for liver transplantation however she is quite symptomatic. She is reportedly failed Pleurx catheter in the past and Dr. Parker is considering a talc pleurodesis versus reattempting a Pleurx. Dr. Parker attempting to inject methylene blue after paracentesis today to assess for any leak in her diaphragm allowing the fluid more easily transitioned into her right thorax Problem #2 liver cirrhosis: Suspected to be secondary to fatty liver the patient 's Lasix had been titrated up and I did ask Zaroxolyn she did respond appropriately however she did have a mild rise in her creatinine today and as such have discontinued her diuretics I suspect they can likely be restarted tomorrow at a lower dose with the Zaroxolyn which she had a positive response to. I have also transitioned her to a sodium restricted diet. The patient is currently on Aldactone already Should her blood pressure be able to tolerate I would also like to in coming days to add a nonselective beta tadeo to help reduce portal hypertension. She is scheduled for paracentesis today and would also likely benefit from regularly scheduled outpatient paracentesis I hope with these measures for the long-term reduce fluid accumulation in both her abdomen and right pleural space Problem #3 thrombocytopenia: Pancytopenia related to sequestration and production as well as liver cirrhosis Problem #4 vertigo continue with meclizine Problem #5 obstructive sleep apnea continue his night CPAP Problem #6 depression continue Lexapro and trazodone Problem #7 gastroesophageal reflux disease: The patient on omeprazole Problem #8 type 2 diabetes patient on sliding scale insulin DISPOSITION: We'll continue to follow the patient closely. VS, I&O, 24H, Fishbone VS, I&O, 24H, Fishbone Vital Signs Date Time Temp Pulse Resp B/P Pulse Ox O2 Delivery O2 Flow Rate FiO2 08/29/16 08:55 18 08/29/16 08:00 96.0 85 111/59 93 Room Air 08/28/16 05:20 3.0 I&O- Last 24 Hours up to 6 AM 08/29/16 05:59 Intake Total 1800 ml Output Total 3075 ml Balance -1275 ml Laboratory Tests 2 08/29/16 05:00: Blood Urea Nitrogen 26H, Creatinine 1.18H, Sodium Level 142, Potassium Level 4.0 , Chloride Level 103, Carbon Dioxide Level 30, Calcium Level 8.9, Phosphorus Level 3.6, Aspartate Amino Transf (AST/SGOT) 20, Alanine Aminotransferase (ALT/ SGPT) 25, Lactate Dehydrogenase 159, Total Creatine Kinase 39, Alkaline Phosphatase 189H, Total Bilirubin 0.5, Triglycerides Level 158H, Cholesterol Level 180, Total Protein 6.4, Albumin 2.7L, Albumin/Globulin Ratio 0.73L, Anion Gap 9, White Blood Count 3.2L, Red Blood Count 3.85L, Hemoglobin 12.4, Hematocrit 36.7, Mean Corpuscular Volume 95.3, Mean Corpuscular Hemoglobin 32.1 , Mean Corpuscular Hemoglobin Concent 33.6, Red Cell Distribution Width 13.4, Platelet Count 67L, Neutrophils (%) (Auto) 64.6, Lymphocytes (%) (Auto) 21.7L, Monocytes (%) (Auto) 6.2H, Eosinophils (%) (Auto) 5.3H, Basophils (%) (Auto) 0.3 , Neutrophils # (Auto) 2.1, Lymphocytes # (Auto) 0.7L, Monocytes # (Auto) 0.2, Eosinophils # (Auto) 0.2, Basophils # (Auto) 0.0, Glomerular Filtration Rate 49.6, Large Unclassified Cells # 0.1, Large Unclassified Cells % 1.9 Laboratory Tests 08/29/16 05:00 Calcium Level 8.9, Phosphorus Level 3.6, Aspartate Amino Transf (AST/SGOT) 20, Alanine Aminotransferase (ALT/SGPT) 25, Lactate Dehydrogenase 159, Total Creatine Kinase 39, Alkaline Phosphatase 189 H, Total Bilirubin 0.5, Triglycerides Level 158 H, Cholesterol Level 180, Total Protein 6.4, Albumin 2.7 L, Red Blood Count 3.85 L, Mean Corpuscular Volume 95.3, Mean Corpuscular Hemoglobin 32.1, Mean Corpuscular Hemoglobin Concent 33.6, Red Cell Distribution Width 13.4, Neutrophils (%) (Auto) 64.6, Lymphocytes (%) (Auto) 21.7 L, Monocytes (%) (Auto) 6.2 H, Eosinophils (%) (Auto) 5.3 H, Basophils (%) (Auto) 0.3, Neutrophils # (Auto) 2.1, Lymphocytes # (Auto) 0.7 L, Monocytes # ( Auto) 0.2, Eosinophils # (Auto) 0.2, Basophils # (Auto) 0.0 Microbiology 08/26/16 Blood Culture - Preliminary, Resulted No Growth after 48 hours. All Specime... 08/26/16 Blood Culture - Preliminary, Resulted No Growth after 48 hours. All Specime... 08/26/16 Acid Fast Stain, Received Pending 08/26/16 Mycobacterial Culture, Received Pending 08/26/16 Fungal Smear, Received Pending 08/26/16 Fungal Culture, Received Pending 08/26/16 Gram Stain - Final, Complete 08/26/16 Body Fluid Culture - Final, Complete 08/26/16 Anaerobic Culture - Final, Complete JOSE SANTANA MD Aug 29, 2016 13:25
[2016-08-29] MEDS ORDERED: LIDOCAINE 1% MDV 20ML VIAL As Ordered ONE ×2 (13:37→16:29)
[2016-08-29] MEDS ORDERED: METHYLENE BLUE 1% 10 ML VIAL (Q9968) XX ONE (14:15)
[2016-08-29] MEDS ORDERED: MIDAZOLAM INJ 2 MG/2 ML VIAL (J2250) IV STA (14:30)
[2016-08-29] MEDS ORDERED: LIDOCAINE 1% MDV 20ML VIAL SC ONE (14:30)
--- NOTE | 2016-08-29 15:18 | REP ---
Portable chest x-ray: AP upright film. History: Status post chest tube adjustment. Findings: Right chest tube has been advanced with its tip now positioned in the apex. There is no discernible pneumothorax. No hydrothorax is seen. EKG electrodes are seen. Impression: Right chest tube advanced to the apex. Signed by Lonny Fu MD 08/29/2016 03:35 P
[2016-08-29] MEDS ORDERED: MORPHINE 4 MG/ML 1ML SYRINGE As Ordered ONE (16:46)
[2016-08-29] MEDS ORDERED: MORPHINE 2 MG/ML 1ML SYRINGE IV PRN (17:00)
[2016-08-29] MEDS ORDERED: MORPHINE 10 MG/ML 1ML VIAL IV ONE (17:00)
--- NOTE | 2016-08-29 17:26 | REP ---
ULTRASOUND-GUIDED PARACENTESIS: The procedure was performed under the direct supervision of Dr. Fu. The risks and benefits of the procedure were explained to the patient and informed consent was obtained. A small pocket of fluid was localized in the right lower quadrant using ultrasound guidance. The skin was prepped and draped in a sterile fashion. 10 mL of 1% Lidocaine was used as a local anesthetic. Using ultrasound guidance, a 19-gauge coaxial needle was inserted. 10 mL of low viscosity reddish colored fluid was withdrawn and sent to the lab. Dr. Parker requested that 10 mL of Methylene blue be injected. Dr. Parker was present at the time of injection. The needle was then removed. The patient tolerated the procedure well and there were no immediate complications. Reviewed by ARMANDO Barlow 08/30/2016 01:40 PEdited and Signed by Lonny Fu MD 08/30/2016 02:35 P
[2016-08-29 18:06] LABS: TOTAL PROTEIN, BODY FLUID 1.2 G/DL (NOT ESTABLISHED)
--- NOTE | 2016-08-29 19:29 | IPN ---
DATE: 08/29/2016 A review of today's chest x-ray showed that the outside hole of the tube was out of the chest wall. CAT scan was repeated which showed the tube still in the chest but barely so. Furthermore she does have some ascites around the liver. Therefore, I repositioned the tube. Her vital signs show a maximum temperature (T max) of 97.0 with a heart rate that ranges between 89 and 95 and is sinus rhythm, respiratory rate constant 220 who is 92 to 91% saturated 2 liters nasal cannula. Blood pressure is ranging between 115/71 to 122/61. Her intake and output over the past 24 hours has been recorded as 1740 in and 2460 out for a negativity of 720 mL. She has put 410 mL out the chest tube. This is markedly decreased from the 1640 cc yesterday. I am a little suspicious that all of the chest was drained as the chest tube was barely in the chest. There is no air leak. Weight today is 111 kg compared to 110.9 kg yesterday. PHYSICAL EXAMINATION: She has equal breath sounds on either side. Percussion note is full to the diaphragm as far as I can tell through her morbid obesity. Cardiac exam is without murmurs, clicks, gallops or rubs. I cannot feel her point of maximum impulse (PMI). S1, S2 are normal. Abdomen is soft and nontender. Bowel sounds are positive. There is no hepatomegaly that I can feel through the obesity. No costovertebral angle tenderness. Extremities show no pretibial edema. No calf tenderness. No differential swelling of the upper extremities. Her skin is warm, dry and perfused without cyanosis or mottling, including that of the nail beds and the knees. Neck is supple. There is no jugular venous distention, no subcutaneous emphysema. Trachea is midline. Mouth shows her mucous membranes to be pink and moist. Lips and commissures without lesions. There is no thrush. Eyes show her pupils to be equal and reactive. Extraocular motions are intact. Sclerae anicteric. Neurologic shows II-XII intact along with gross motor and gross sensation intact. Gait is not tested. Psychiatric shows her to be awake and alert, oriented times three with appropriate mood and affect and conversational. Her white count today is down to 3.2 with a hemoglobin and hematocrit of 12.4 and 36.7, unchanged from yesterday with a platelet count of 67, also unchanged from yesterday. Differential shows 64% neutrophils, 21% lymphocytes, 6% monocytes and 5% eosinophils There are no immature forms. No toxic granulations. Her electrolytes are normal with a BUN and creatinine of 26 and 1.18. A glucose of 254 with a calcium is 8.9. AST and ALT are 20 and 25 respectively with an albumin of 2.7 with a corresponding calcium of 8.9. Her chest x-ray gratifyingly does shows the lung fully expanded to the chest wall. There is no reaccumulation of fluid. Costophrenic angles are sharp. Chest tube is just barely in the chest. I see no other infiltrates. IMPRESSION: 1. Large recurrent right sided pleural effusion. 2. Cirrhosis. 3. Portal hypertension. 4. Esophageal varices. 5. Steatohepatitis hepatis explaining the above. 6. Hypertension. 7. Diabetes. 8. Depression. 9. Anxiety. 10. Thrombocytopenia. 11. Leukopenia with both thrombocytopenia and leukopenia secondary to liver disease. 12. Hyperlipidemia. 13. Gastroesophageal reflux disease. PLAN AND DISCUSSION: As discussed in yesterday's note, she may have a hole within her diaphragm. Today having repositioned the chest tube we are going to take her down to x-ray and try and place Methylene blue within the abdomen. We will then watch for it to reappear in the chest tube. If it does then it would give sufficient evidence that there is a direct communication particularly if it appears very quickly. At that point and time, should that be the case I will probably have to plan for a diaphragmatic closure along with a talc pleurodesis.
[2016-08-29 20:15] LABS: SPEC. GRAVITY BODY FLUIDS 1.013 (NOT ESTABLISHED)
[2016-08-29 20:16] LABS: PERITONEAL FL COLOR ORANGE (COLORLESS); RBC PERITONEAL FLUID 23 (<10mm3 cells/uL); TNC PERITONEAL FLUID 466 cells/uL (0-20)
[2016-08-29 20:17] LABS: BF DIFF IF INDICATED? YES (NO)
[2016-08-29] MEDS: traZODone 50 MG TAB PO SCH (21:48)
[2016-08-29 21:59] LABS: CC BF DIFF EXAM CYTOCENTRIFUGE
[2016-08-30] VITALS (9 sets, daily range): BP systolic 100–125; BP diastolic 47–65
[2016-08-30 01:00] LABS: ABG BASE EXCESS 4.1 (-2.0-2.0); ABG HCO3 29.5 MEQ/L (22.0-26.0); ABG PARTIAL PRESSURE CO2 47.1 mmHg (35.0-45.0); ABG PARTIAL PRESSURE O2 83.2 mmHg (75.0-100.0); ABG STANDARD HCO3 28.1 MEQ/L (22.0-26.0); ABG TOTAL CO2 30.9 MEQ/L (23.0-31.0); ABG pH (ARTERIAL) 7.414 UNITS (7.350-7.450)
[2016-08-30] MEDS ORDERED: LACTULOSE 20 GM/30 ML SYRUP UD PO ONE (01:00)
[2016-08-30] MEDS: LEVALBUTEROL 1.25 MG/0.5 ML CONCENTRATE NEB NEB SCH ×4 (01:17→19:56)
[2016-08-30] MEDS ORDERED: NALOXONE INJ 0.4 MG/1 ML VIAL (J2310) IV STA ×2 (01:38→01:42)
[2016-08-30 05:37] LABS: BASO % 0.3 % (0.0-1.0); EOS # 0.1 K/mm3 (0.0-0.50); LARGE UNSTAINED CELL # 0.1 K/mm3 (0.0-0.4); LARGE UNSTAINED CELL % 1.7 % (0.0-4.0); LYMPH # 0.5 K/mm3 (1.5-4.5); LYMPH % 14.5 % (24.0-44.0); MEAN CORPUSCULAR HEMOGLOBIN 32.5 pg (27.0-33.0); MEAN CORPUSCULAR HGB CONC 33.9 g/dl (32.0-36.5); MEAN CORPUSCULAR VOLUME 95.9 fl (80.0-96.0); MONO # 0.2 K/mm3 (0.0-0.8); MONO % 6.4 % (0.0-5.0); NEUTROPHILS # 2.3 K/mm3 (1.8-7.7); NEUTROPHILS % 73.1 % (36.0-66.0); RED CELL DISTRIBUTION WIDTH 13.4 % (11.5-14.5); WHITE BLOOD COUNT 3.1 K/mm3 (4.0-10.0)
[2016-08-30 05:40] LABS: PLATELET COUNT, AUTOMATED 63 k/mm3 (150-450)
[2016-08-30] MEDS: KETOROLAC 30 MG/ML VIAL (J1885) IV SCH ×4 (05:53→23:26)
[2016-08-30 05:55] LABS: ALBUMIN 2.8 GM/DL (3.2-5.2); ALBUMIN/GLOBULIN RATIO 0.74 (1.00-1.93); BILIRUBIN,TOTAL 0.9 MG/DL (0.2-1.0); CALCIUM LEVEL 8.8 MG/DL (8.8-10.2); CREATININE FOR GFR 1.23 MG/DL (0.55-1.02); GLOMERULAR FILTRATION RATE 47.3 (>45); PHOSPHORUS LEVEL 3.5 MG/DL (2.5-4.9); POTASSIUM SERUM 4.6 MEQ/L (3.5-5.1); TOTAL PROTEIN 6.6 GM/DL (6.4-8.2)
[2016-08-30] MEDS: MECLIZINE 25 MG TABLET PO SCH ×2 (08:10→21:57)
[2016-08-30] MEDS: MOM 30ML SUSPENSION UDC PO SCH (08:10)
[2016-08-30] MEDS: CALCIUM CARBONATE 500 MG CHEW U/D PO SCH ×3 (08:11→18:00)
[2016-08-30] MEDS: SPIRONOLACTONE 25 MG TAB PO SCH ×2 (08:11→21:57)
[2016-08-30] MEDS: OMEPRAZOLE 20 MG CAP PO SCH (08:11)
[2016-08-30] MEDS: DOCUSATE SODIUM 100 MG CAP PO SCH ×2 (08:11→21:57)
[2016-08-30] MEDS: ESCITALOPRAM OXALATE 10 MG TAB (LEXAPRO) PO SCH (08:11)
[2016-08-30] MEDS: HumaLOG INSULIN (NovoLOG) PER UNIT SC SCH ×4 (08:12→21:59)
[2016-08-30] MEDS: LEVEMIR (INSULIN DETEMIR) 1 UNITS/0.01ML SC SCH ×2 (08:13→21:58)
--- NOTE | 2016-08-30 09:43 | REP ---
Chest x-ray: Two views. History: Hepatic hydrothorax. Comparison study: August 29, 2016. Findings: Right chest tube remains in place at the posterior apex. There is no discernible pneumothorax or visible hydrothorax on today's radiographs. There is some plate-like atelectasis in each lung base. Heart is not enlarged. Plate-like atelectasis is noted in the perihilar region on the left as well. Impression: No pneumothorax seen. Bilateral plate-like atelectasis. Right chest tube in place. No new infiltrate. Signed by Lonny Fu MD 08/30/2016 02:31 P
[2016-08-30] MEDS ORDERED: ceFAZolin SOD 1 GM in D5W MINI-BAG PLUS 50 ML IV ONE (10:00)
[2016-08-30] MEDS ORDERED: MUPIROCIN 2% OINT 22 GM TUBE TOP SCH (10:00)
--- NOTE | 2016-08-30 11:13 | IPN ---
DATE: 08/30/2016 50-year-old female seen at bedside. No overnight issues reported. She feels that her shortness of breath is about the same today. She denies productive sputum, cough, hemoptysis. No abdominal pain. Temperature is 96.1, pulse 80, respiratory rate 20, blood pressure 104/58, SpO2 is 96% on 2 liters. Her chest tube output over the past 24 hours is 140 mL as of midnight last night. White count was 3.1, hemoglobin 12.0, platelets are 63, 000. Sodium 139, potassium 4.6, chloride 102, bicarbonate 30, anion gap 7, BUN is 33, creatinine 1.23, glucose is 209, phosphorus 8.8. Total and direct bilirubin 3.5 and 0.9. AST 22, ALT 23, alkaline phosphatase 176, albumin 0.74. She did have an ABG this morning. pH 7.414, pCO2 47.1, pO2 83.2. The overnight resident did feel that she was quite lethargic. She did receive a dose of Narcan which did improve her symptoms and she appears to be relatively comfortable today at bedside. ASSESSMENT AND PLAN: 1. Recurrent right pleural effusion. Chest x-ray this morning demonstrates no pneumothorax. Bilateral plate-like atelectasis is noted and right chest tube is in place. No new infiltrate. Appreciate Dr. Parker's input. She is likely going to the OR later today for talc pleurodesis. There is some concern that her recurrent pleural effusion is related to her liver cirrhosis and anasarca. However, she is not felt to be a candidate for liver transplantation. Methylene blue was injected yesterday looking for a leak in her diaphragm and none was found. 2. Liver cirrhosis with HICKS. She did receive a dose of Zaroxolyn yesterday. Her creatinine and BUN, however, is elevated today and most likely this is related to the potency of the Zaroxolyn. We will continue to follow her renal profile. We have restricted her sodium intake. Currently on Lasix and aldactone as well as non-selective beta tadeo to reduce portal hypertension and she may need to be scheduled for outpatient paracentesis periodically. 3. Thrombocytopenia with associated pancytopenia secondary to HICKS and resulting liver cirrhosis. Will continue to follow and avoid heparin products. 4. Vertigo. Continue on meclizine. 5. Obstructive sleep apnea, stable on CPAP. 6. Depression. Continue Lexapro and trazodone as needed. 7. Gastroesophageal reflux disease (GERD), on omeprazole. 8. Diabetes. Continue sliding scale insulin. 9. Deep venous thrombosis (DVT) prophylaxis. Thromboembolic deterrent stockings (TEDS), sequentials, encouraged to ambulate with assistance when needed. DISPOSITION: Will continue to follow along with Dr. Parker. Appreciate his input. JOSELUIS
--- NOTE | 2016-08-30 11:51 | IPN ---
DATE OF SERVICE: 08/30/2016 Ms. Palma underwent paracentesis and sampling and then with injection of methylene blue. The methylene blue was very irritating to her peritoneum, more so than I had expected. She required a lot of narcotic analgesia, so much so that she was a bit narcotized this morning and needed Narcan. She is now awake and alert and talking, and her pain is now gone. Methylene blue has not come out of the chest tube, although she is now putting it out in her urine after reabsorption. Her vital signs show a maximum temperature (Tmax) of 96.8 with a heart rate that ranges between 84 and 80 in a sinus rhythm, respiratory rate of 18-20 without the use of accessory muscles who is 96% saturated on 2 liters nasal cannula and whose blood pressure is ranging between 104/58 and 109/59. Her intake and output over the past 24 hours has been recorded as 620 in and 1300 out for a negativity of 680 mL. Her urine output has been 1150 mL, and she has only put out 140 mL out of the chest tube. Weight today is 110.4 kg compared to 111.1 kg yesterday. On physical examination, her lungs show equal breath sounds on either side. Percussion note is full to the diaphragm. I hear no wheezes, rhonchi, or rales. Cardiac examination is without murmurs, clicks, gallops, or rubs. I cannot feel her point of maximum impulse (PMI). S1 and S2 are normal. She does have distant heart sounds secondary to her morbid obesity. Abdomen is soft and nontender. Bowel sounds are positive. I do not appreciate hepatomegaly or costovertebral angle (CVA) tenderness. Extremities show no pretibial edema. No calf tenderness. No differential swelling of the upper extremities. Her skin is warm, dry, and perfused without cyanosis or mottling, including that of the nail beds and the knees. Neck is supple. There is no jugular venous distention, no subcutaneous emphysema. Trachea is midline. Mouth shows her mucous membranes to be pink and moist. Lips and commissures without lesions. There is no thrush. Eyes show her pupils to be equal and reactive. Extraocular motions are intact. Sclerae anicteric. Neurologic shows II-XII intact, along with gross motor and gross sensation intact. Gait is not tested. Psychiatric shows her to be awake and alert, oriented times three with appropriate mood and affect and conversational. Her white count today is 3.1 with a hemoglobin and hematocrit of 12.0 and 35.4 respectively. Platelet count is 63, and her differential shows 73% neutrophils, 14% lymphocytes, 6% monocytes. There are no immature forms. No toxic granulations. Chemistries show normal electrolytes with a BUN and creatinine of 33 and 1.23. Glucose is 209 with a calcium of 8.8. Albumin is 2.8. Ammonia level was high today at 53 with the upper limit of normal being 32. Her chest x-ray shows her lung fully expanded to the chest wall. Costophrenic angles are sharp. Chest tube is in good place. I see no infiltrates either on the PA or the lateral film. There is no subcutaneous emphysema. IMPRESSION: 1. 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 2. Cirrhosis. 3. Portal hypertension. 4. Esophageal varices. 5. Steatohepatitis, explaining the above. 6. Hypertension. 7. Diabetes. 8. Depression. 9. Anxiety. 10. Thrombocytopenia. 11. Leukopenia. 12. Hyperlipidemia. 13. Gastroesophageal reflux disease. PLAN AND DISCUSSION: We are now at a point where I can fairly say with confidence that there is no hole in the diaphragm. Her chest tube output is fairly well controlled, and she would be a candidate for a talc pleurodesis with a fair modicum of expectation for a good result. I will, therefore, take her to the operating room tomorrow, where we will undertake the talc pleurodesis. She is thrombocytopenic, and I will have to transfuse her a unit of platelets, so anesthesia will undertake an epidural. We will continue to diurese her today.
[2016-08-31] VITALS (10 sets, daily range): BP systolic 94–120; BP diastolic 51–61; O2SAT 92–93
[2016-08-31] MEDS: LEVALBUTEROL 1.25 MG/0.5 ML CONCENTRATE NEB NEB SCH ×4 (01:12→20:00)
[2016-08-31] MEDS: KETOROLAC 30 MG/ML VIAL (J1885) IV SCH ×4 (05:28→23:20)
[2016-08-31 05:56] LABS: BASO % 0.5 % (0.0-1.0); EOS # 0.1 K/mm3 (0.0-0.50); EOS % 3.1 % (0.0-3.0); LARGE UNSTAINED CELL # 0.1 K/mm3 (0.0-0.4); LARGE UNSTAINED CELL % 1.8 % (0.0-4.0); LYMPH # 0.6 K/mm3 (1.5-4.5); LYMPH % 16.3 % (24.0-44.0); MEAN CORPUSCULAR HEMOGLOBIN 31.3 pg (27.0-33.0); MEAN CORPUSCULAR HGB CONC 31.8 g/dl (32.0-36.5); MEAN CORPUSCULAR VOLUME 98.6 fl (80.0-96.0); MONO # 0.3 K/mm3 (0.0-0.8); MONO % 8.2 % (0.0-5.0); NEUTROPHILS # 2.4 K/mm3 (1.8-7.7); RED CELL DISTRIBUTION WIDTH 14.4 % (11.5-14.5); WHITE BLOOD COUNT 3.5 K/mm3 (4.0-10.0)
[2016-08-31] MEDS ORDERED: ceFAZolin SOD 1 GM in D5W MINI-BAG PLUS 50 ML IV ONE (06:00)
[2016-08-31 06:03] LABS: ALBUMIN 2.5 GM/DL (3.2-5.2); ALBUMIN/GLOBULIN RATIO 0.69 (1.00-1.93); BILIRUBIN,TOTAL 0.8 MG/DL (0.2-1.0); CALCIUM LEVEL 8.7 MG/DL (8.8-10.2); CREATININE FOR GFR 1.23 MG/DL (0.55-1.02); GLOMERULAR FILTRATION RATE 47.3 (>45); TOTAL PROTEIN 6.1 GM/DL (6.4-8.2)
[2016-08-31 06:04] LABS: POTASSIUM SERUM 5.3 MEQ/L (3.5-5.1)
[2016-08-31 06:13] LABS: PLATELET COUNT, AUTOMATED 67 k/mm3 (150-450)
[2016-08-31] MEDS: CALCIUM CARBONATE 500 MG CHEW U/D PO SCH ×3 (08:00→19:12)
[2016-08-31] MEDS: LEVEMIR (INSULIN DETEMIR) 1 UNITS/0.01ML SC SCH ×2 (08:12→23:19)
[2016-08-31] MEDS: MOM 30ML SUSPENSION UDC PO SCH (08:12)
[2016-08-31] MEDS: DOCUSATE SODIUM 100 MG CAP PO SCH ×2 (08:12→21:00)
[2016-08-31] MEDS: SPIRONOLACTONE 25 MG TAB PO SCH ×3 (08:34→21:00)
[2016-08-31] MEDS: ESCITALOPRAM OXALATE 10 MG TAB (LEXAPRO) PO SCH (08:34)
[2016-08-31] MEDS: MECLIZINE 25 MG TABLET PO SCH ×2 (08:35→21:00)
[2016-08-31] MEDS: HumaLOG INSULIN (NovoLOG) PER UNIT SC SCH ×4 (08:35→23:20)
[2016-08-31] MEDS: OMEPRAZOLE 20 MG CAP PO SCH (08:35)
--- NOTE | 2016-08-31 09:24 | IPN ---
DATE: 08/31/2016 60-year-old female seen at bedside. She is resting comfortably. She denies chest pain, productive sputum or cough. No hemoptysis. No abdominal pain, nausea or vomiting. OBJECTIVE: Temperature 98.4, pulse 89, respiratory rate is 20, blood pressure (BP) 114/53, SPO2 is 92% on room air. General: The patient appears to be in no acute distress. She is pleasant. HEENT: Head is atraumatic, normocephalic. Eyes: Pupils equal, reactive to light and accommodation. Throat clear. Lungs: Diminished base sounds on the right. Occasional wheeze. Left lung sweet clear. Heart: Regular rate and rhythm. Abdomen: Soft. Extremities: No edema. No calf tenderness. LABORATORY DATA: White count 3.5, hemoglobin 11.3 and platelets 67,000. Sodium is 142, potassium 5.3, chloride 104, bicarb 29, anion gap 9, BUN is 40, creatinine is 1.23, glucose is 207, calcium 8.7, phosphorus 3.0, total bilirubin 0.8, AST 27, ALT 25, alkaline phosphatase 220, LDH 209, albumin is 2.5. Cultures remain negative. ASSESSMENT AND PLAN: 1. Recurrent right pleural effusion. Chest tube. Appreciate Dr. Parker's input. There is no noticeable sign of leakage of the diaphragm. Planned for talc pleurodesis later today. I agree with the transfusion of pheresis platelets today due to her low platelet count. 2. 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 She appears to be stable on current meds; however, she does show some hyperkalemia. Will hold her Aldactone for today and continue to follow her electrolytes. 3. Thrombocytopenia associated with pancytopenia secondary to cirrhosis and related nonalcoholic steatohepatitis. As indicated above, we are avoiding heparin products and she will like need a pheresis of platelets prior to her talc pleurodesis. 4. Vertigo. Continue on meclizine. Stable. 5. Obstructive sleep apnea. Continue with home C-PAP machine. 6. Depression. Doing well on Lexapro and trazodone. No suicidal ideation. No audiovisual hallucinations. 7. Gastroesophageal reflux disease. Stable on omeprazole. 8. Diabetes. Continue with sliding scale insulin. Consistent carb diet. I did hold her Lantus this morning since her OR time is not until later this afternoon. Will cover with sliding scale and fingersticks while she is nothing by mouth (n.p.o.). 9. Deep vein thrombosis (DVT) prophylaxis with thromboembolic deterrent stockings (TEDS) and sequentials. Encouraged to ambulate with assistance. DISPOSITION: Will continue to follow along with Dr. Parker. Appreciate his input.
[2016-08-31] MEDS ORDERED: BUPIVACAINE HCL 0.5% 30 ML VIAL As Ordered ONE (09:31)
[2016-08-31] MEDS ORDERED: MUPIROCIN 2% OINT 22 GM TUBE As Ordered ONE (09:31)
[2016-08-31] MEDS ORDERED: BUPIVACAINE LIPOSOME/PF 1.3% 20ML (266MG/20ML) VIAL (EXPAREL) As Ordered ONE (09:31)
[2016-08-31] MEDS ORDERED: SCLEROSOL INTRAPLEURAL AEROSOL As Ordered ONE (09:32)
--- NOTE | 2016-08-31 09:34 | REP ---
PA LATERAL CHEST: 08/31/2016. Comparison: 08/30/2016, portable chest 08/29/2016, CT chest 08/29/2016. Clinical history: Status post right chest tube for pleural effusion. Findings: Right apex chest tube is again seen. There is some volume loss in the right hemithorax with slight elevation of the right diaphragm. The left lung is well inflated. There is some linear atelectatic or scar change in the left CP angle. Some minor basilar atelectatic change also seen on the right. On the lateral view, there is a small right effusion evident. Chest tube is into the medial right apex. There is no definite pneumothorax or dense consolidation. Heart not grossly enlarged. There is no pulmonary edema. Bones intact. No free air. Impression: 1. Right apex chest tube again seen unchanged with some bibasilar atelectatic changes, mild and without cardiomegaly, edema or left effusion. Small right pleural effusion persists. No pneumothorax. Signed by Isaac Christina MD 08/31/2016 10:03 A
[2016-08-31] MEDS ORDERED: MIDAZOLAM INJ 2 MG/2 ML VIAL (J2250) As Ordered ONE (14:51)
[2016-08-31] MEDS ORDERED: PROPOFOL 200 MG/20 ML VIAL As Ordered ONE (14:51)
[2016-08-31] MEDS ORDERED: LIDOCAINE 2% INJ 100 MG/5 ML SDV (FOR ANES.) As Ordered ONE (14:51)
[2016-08-31] MEDS ORDERED: fentaNYL 250 MCG/5 ML INJECTION (J3010) As Ordered ONE (14:51)
[2016-08-31] MEDS ORDERED: ROCURONIUM BROMIDE 50 MG/5 ML VIAL As Ordered ONE ×2 (14:51→17:45)
[2016-08-31] MEDS ORDERED: ONDANSETRON 4MG/2ML VIAL (J2405) As Ordered ONE (15:02)
[2016-08-31] MEDS ORDERED: dexameTHASONE 4 MG/ML 1ML VIAL (J1100) As Ordered ONE ×2 (15:02→17:45)
[2016-08-31] MEDS ORDERED: ceFAZolin 1GM INJ (J0690) As Ordered ONE (15:32)
[2016-08-31] MEDS ORDERED: ceFAZolin 1GM INJ (J0690) IV ONE (15:41)
[2016-08-31] MEDS ORDERED: BUPIVACAINE HCL 0.5% 30 ML VIAL XX ONE (17:25)
[2016-08-31] MEDS ORDERED: MUPIROCIN 2% CREAM 30GM XX ONE (17:25)
[2016-08-31] MEDS ORDERED: BUPIVACAINE LIPOSOME/PF 1.3% 20ML (266MG/20ML) VIAL (EXPAREL) XX ONE (17:25)
[2016-08-31] MEDS ORDERED: SCLEROSOL INTRAPLEURAL AEROSOL XX ONE (17:25)
[2016-08-31] MEDS ORDERED: fentaNYL 100 MCG/2 ML INJECTION (J3010) As Ordered ONE ×2 (17:49→18:23)
[2016-08-31] MEDS ORDERED: GLYCOPYRROLATE INJ 0.2 MG/ML 2 ML VIAL As Ordered ONE (18:03)
[2016-08-31] MEDS ORDERED: KETOROLAC 60 MG/2 ML VIAL (J1885) As Ordered ONE (18:35)
[2016-08-31] MEDS ORDERED: MORPHINE PCA 1MG/ML 100ML CADD As Ordered ONE (18:44)
[2016-08-31] MEDS ORDERED: KCL 20MEQ IN D5/NS 1000ML 1,000 ML IV SCH (18:49)
[2016-08-31] MEDS ORDERED: KCL 20MEQ IN D5/0.9%NACL 1000 ML As Ordered ONE (18:52)
[2016-08-31] MEDS ORDERED: LEVALBUTEROL 1.25 MG/0.5 ML CONCENTRATE NEB NEB PRN (19:00)
[2016-08-31] MEDS ORDERED: zolPIDEM TARTRATE 5 MG TAB PO PRN (19:00)
[2016-08-31] MEDS ORDERED: NORCO, ANEXSIA 5/325MG TABLET (HYDROcodone/ACETAMINOPHEN) PO PRN (19:00)
[2016-08-31] MEDS ORDERED: PERCOCET 5MG/325MG TAB PO PRN ×2 (19:00)
[2016-08-31] MEDS ORDERED: ACETAMINOPHEN TAB 650MG DOSE (2X325MG) PO PRN (19:00)
[2016-08-31] MEDS ORDERED: ONDANSETRON 4MG/2ML VIAL (J2405) IV PRN ×2 (19:00→19:45)
[2016-08-31 19:31] LABS: ABG BASE EXCESS -1.4 (-2.0-2.0); ABG HCO3 24.7 MEQ/L (22.0-26.0); ABG PARTIAL PRESSURE CO2 47.3 mmHg (35.0-45.0); ABG PARTIAL PRESSURE O2 90.4 mmHg (75.0-100.0); ABG STANDARD HCO3 23.3 MEQ/L (22.0-26.0); ABG TOTAL CO2 26.2 MEQ/L (23.0-31.0); ABG pH (ARTERIAL) 7.336 UNITS (7.350-7.450)
[2016-08-31] MEDS ORDERED: HYDROmorphone HCL 1 MG/ML SYRINGE (J1170) IV PRN (19:45)
[2016-08-31] MEDS ORDERED: LR 1,000 ML IV SCH (19:45)
[2016-08-31] MEDS ORDERED: fentaNYL 100 MCG/2 ML INJECTION (J3010) IV PRN (19:45)
[2016-08-31] MEDS ORDERED: HumaLOG INSULIN (NovoLOG) PER UNIT As Ordered ONE (19:47)
[2016-08-31] MEDS ORDERED: HumaLOG INSULIN (NovoLOG) PER UNIT SC ONE (20:15)
[2016-08-31 20:32] LABS: BASO % 0.7 % (0.0-1.0); EOS % 0.7 % (0.0-3.0); LARGE UNSTAINED CELL # 0.1 K/mm3 (0.0-0.4); LARGE UNSTAINED CELL % 0.8 % (0.0-4.0); LYMPH # 0.4 K/mm3 (1.5-4.5); LYMPH % 5.9 % (24.0-44.0); MEAN CORPUSCULAR HEMOGLOBIN 31.5 pg (27.0-33.0); MEAN CORPUSCULAR HGB CONC 31.1 g/dl (32.0-36.5); MEAN CORPUSCULAR VOLUME 101.4 fl (80.0-96.0); MONO # 0.1 K/mm3 (0.0-0.8); NEUTROPHILS # 5.3 K/mm3 (1.8-7.7); RED CELL DISTRIBUTION WIDTH 14.2 % (11.5-14.5); WHITE BLOOD COUNT 5.8 K/mm3 (4.0-10.0)
[2016-08-31 20:34] LABS: CALCIUM LEVEL 8.4 MG/DL (8.8-10.2); CREATININE FOR GFR 1.27 MG/DL (0.55-1.02); GLOMERULAR FILTRATION RATE 45.5 (>45); PLATELET COUNT, AUTOMATED 86 k/mm3 (150-450)
[2016-08-31 20:35] LABS: POTASSIUM SERUM 6.2 MEQ/L (3.5-5.1)
[2016-08-31] MEDS: HEPARIN SOD (PORCINE) 5000 UNITS/ML VIAL SC SCH (21:00)
[2016-08-31] MEDS: D5W/0.9% SODIUM CHLORIDE 1,000 ML IV SCH (21:00)
[2016-08-31 21:20] LABS: CALCIUM LEVEL 8.3 MG/DL (8.8-10.2); CREATININE FOR GFR 1.2 MG/DL (0.55-1.02); GLOMERULAR FILTRATION RATE 48.6 (>45)
[2016-08-31 21:21] LABS: POTASSIUM SERUM 5.6 MEQ/L (3.5-5.1)
[2016-08-31] MEDS ORDERED: NS 1,000 ML IV SCH (22:35)
[2016-08-31] MEDS ORDERED: MORPHINE PCA 1MG/ML 100ML CADD IV PRN (22:45)
[2016-08-31] MEDS ORDERED: diphenhydrAMINE INJ 50MG/ML VIAL (J1200) IV PRN (22:45)
[2016-08-31] MEDS ORDERED: NALBUPHINE HCL 10 MG/ML AMP (J2300) IV PRN (22:45)
[2016-08-31] MEDS ORDERED: EPIDURAL/PCA KEYS XX PRN (22:45)
[2016-08-31] MEDS ORDERED: NALOXONE INJ 0.4 MG/1 ML VIAL (J2310) IV PRN (22:45)
[2016-09-01] VITALS (27 sets, daily range): BP systolic 93–116; BP diastolic 53–69; O2SAT 90–95
[2016-09-01] MEDS: KETOROLAC 30 MG/ML VIAL (J1885) IV SCH ×4 (00:30→18:33)
[2016-09-01] MEDS: ceFAZolin SOD 1 GM in D5W MINI-BAG PLUS 50 ML IV SCH ×3 (01:32→16:13)
[2016-09-01] MEDS: LEVALBUTEROL 1.25 MG/0.5 ML CONCENTRATE NEB NEB SCH ×4 (02:00→20:20)
--- NOTE | 2016-09-01 03:20 | REP ---
Clinical: Evaluate thoracentesis with previous effusion and pneumothorax. Comparison: 08/29/2016. Findings: Right chest tube extends to the apex. Right mid lung and left lower lobe opacities have increased since prior examination. No obvious pneumothorax. Layering effusion cannot be excluded. Small amount of subcutaneous emphysema noted in the right neck region. Impression: Bilateral opacities. No obvious significant pneumothorax. Small amount of residual subcutaneous emphysema at the neck. Signed by Pk Hansen MD 09/01/2016 03:12 A
[2016-09-01 05:26] LABS: EOS % 0.4 % (0.0-3.0); LARGE UNSTAINED CELL % 1.2 % (0.0-4.0); LYMPH # 0.2 K/mm3 (1.5-4.5); LYMPH % 7.9 % (24.0-44.0); MEAN CORPUSCULAR HEMOGLOBIN 32.2 pg (27.0-33.0); MEAN CORPUSCULAR HGB CONC 33.1 g/dl (32.0-36.5); MEAN CORPUSCULAR VOLUME 97.1 fl (80.0-96.0); MONO # 0.2 K/mm3 (0.0-0.8); MONO % 5.2 % (0.0-5.0); NEUTROPHILS # 2.5 K/mm3 (1.8-7.7); NEUTROPHILS % 85.2 % (36.0-66.0)
[2016-09-01 05:36] LABS: PLATELET COUNT, AUTOMATED 57 k/mm3 (150-450)
[2016-09-01 05:45] LABS: ALBUMIN 2.4 GM/DL (3.2-5.2); ALBUMIN/GLOBULIN RATIO 0.65 (1.00-1.93); BILIRUBIN,TOTAL 0.7 MG/DL (0.2-1.0); CALCIUM LEVEL 7.9 MG/DL (8.8-10.2); CREATININE FOR GFR 1.24 MG/DL (0.55-1.02); GLOMERULAR FILTRATION RATE 46.8 (>45); PHOSPHORUS LEVEL 3.8 MG/DL (2.5-4.9); POTASSIUM SERUM 5.4 MEQ/L (3.5-5.1); TOTAL PROTEIN 6.1 GM/DL (6.4-8.2)
[2016-09-01] MEDS ORDERED: FUROSEMIDE 40 MG/4 ML VIAL (J1940) IV ONE (06:30)
[2016-09-01] MEDS: HumaLOG INSULIN (NovoLOG) PER UNIT SC SCH ×4 (07:30→21:00)
[2016-09-01] MEDS ORDERED: PANTOPRAZOLE 40MG INJ (PROTONIX) (C9113) IV SCH (09:00)
--- NOTE | 2016-09-01 09:04 | REP ---
PA LATERAL CHEST: 09/01/2016. Comparison: Portable chest 08/31/2016, PA and lateral chest 08/31/2016, 08/30/2016. Clinical history: Pleural effusion, right chest tube. Findings: Browning chest tube is repositioned since yesterday morning's PA and lateral chest as seen on the portable chest last night. There is a pseudotumor in the right mid chest and atelectatic changes along the fissure on the lateral view. Lungs somewhat hypoinflated. Basilar atelectasis bilaterally noted. No visible pneumothorax. There is a decrease in the subcutaneous emphysema on the right neck base since last night's study. Cardiomediastinal silhouette unchanged. The aorta is mildly tortuous. Airway intact. A right base chest tube is now seen with the small effusion on yesterday's lateral chest decreased. There are no other findings or interval changes. Signed by Isaac Christina MD 09/01/2016 09:21 A
[2016-09-01] MEDS: HEPARIN SOD (PORCINE) 5000 UNITS/ML VIAL SC SCH ×2 (09:18→21:00)
[2016-09-01] MEDS: D5W/0.9% SODIUM CHLORIDE 1,000 ML IV SCH (09:19)
[2016-09-01] MEDS: MOM 30ML SUSPENSION UDC PO SCH (09:23)
[2016-09-01] MEDS: LEVEMIR (INSULIN DETEMIR) 1 UNITS/0.01ML SC SCH ×2 (09:23→22:02)
[2016-09-01] MEDS: CALCIUM CARBONATE 500 MG CHEW U/D PO SCH ×3 (09:24→17:28)
[2016-09-01] MEDS: PANTOPRAZOLE 40MG TAB (PROTONIX) PO SCH (09:25)
[2016-09-01] MEDS: DOCUSATE SODIUM 100 MG CAP PO SCH ×2 (09:25→22:02)
[2016-09-01] MEDS: MECLIZINE 25 MG TABLET PO SCH ×2 (09:25→22:02)
[2016-09-01] MEDS: ESCITALOPRAM OXALATE 10 MG TAB (LEXAPRO) PO SCH (09:25)
--- NOTE | 2016-09-01 09:54 | RO ---
DATE OF PROCEDURE: 08/31/2016 PREPROCEDURE DIAGNOSIS: Recurrent and persistent pleural effusion. Liver failure with ascites. POSTPROCEDURE DIAGNOSIS: Recurrent and persistent pleural effusion. Liver failure with ascites. PROCEDURE: Right talc pleurodesis using video-assisted thoracoscopic surgery (VATS) techniques. Five level rib block. Bronchoscopy. Pleural biopsy. SURGEON: Dr. Francisco J Parker INSURANCE SALES MANAGER: ANESTHESIA: FINDINGS: The bronchoscopy revealed a normal branching tracheobronchial tree. There were no endobronchial lesions. She did have copious amounts of secretions were suction aspirated so that each segment and subsegment could be thoroughly inspected. Talc pleurodesis revealed numerous adhesions to the chest wall in random areas which all had to be taken down. There was an adhesion to the diaphragm which was thoroughly inspected and it was decided that this did not represent a hole in the diaphragm. A pleural biopsy was taken. Talc was homogenously insufflated throughout the chest with special attention to the diaphragm where it was completely and thoroughly covered. There were signs of edema with yellow droplets almost immediately. PROCEDURE: Under satisfactory general anesthesia and single lumen tube endotracheal intubation, the bronchoscope was placed in the tracheobronchial tree. There were copious amounts of secretions. These were suction aspirated and each segment and subsegment were thoroughly inspected. There were no endobronchial lesions. The patient then had a double lumen tube placed. I helped position it. The patient was then turned into the left lateral decubitus position and prepped and draped in the usual sterile fashion. It should be noted the patient is incredibly morbidly obese. Incision was made in the approximate mid axillary line and a 5 mm port was placed under direct vision. The lung fell away from the chest wall. It was immediately evident there were numerous adhesions which had to be taken down and therefore three more ports were placed, one in the anterior axillary line, one in the posterior axillary line. By changing positions of the instruments and the camera, all of the adhesions could be taken down sharply with the electrocautery. These were random adhesions and were not holding the lung to the chest wall effectively. The pleural cavity was then thoroughly insufflated with talc powder in a uniform and homogenous fashion. Particular attention was paid to the diaphragm. Prior to doing so, there was an adhesion to the diaphragm and I initially questioned whether this represented a hole in the diaphragm being covered by inflammatory adhesion. This was thoroughly inspected and the diaphragm was found to be intact. After insufflating the talc, two chest tubes were placed, one in the right costophrenic angle and one in the posterior vertebral gutter. A five level rib block consisting of Exparel was then injected using a 5-inch spinal needle to get down to the rib. The third incision was closed with running #3-0 Vicryl suture for the subcutaneous tissue, a running #4-0 Monopril subcuticular for the skin. The incisions on the chest tube sites were also infiltrated with Exparel. The chest tubes were connected to the suction and the lung was inflated. It should be noted that during the case the lung had to be reinflated numerous times as she would keep dropping her saturations. The patient tolerated the procedure well and left the operating room in satisfactory condition for the recovery room.
--- NOTE | 2016-09-01 12:56 | IPN ---
DATE: 09/01/2016 60-year-old female seen at bedside. She states she is having some pleuritic chest pain from having some movement this morning in bed however, she did get out of bed yesterday and persisted with physical therapy. OBJECTIVE: Temperature is 96.6 tympanically, pulse 80, respiratory rate is 20, blood pressure 108/57, SpO2 is 98% on 2-3 liters. HEENT: Unremarkable. LUNGS: Diminished bibasilar breath sounds, more notable on the right, occasional wheeze. HEART: Regular rate and rhythm. ABDOMEN: Soft. EXTREMITIES: Trace edema. No calf tenderness. LABORATORY DATA: White count 3.0, hemoglobin 10.5, platelets are 57,000, sodium 138, potassium 5.4, chloride 104, bicarbonate 27, anion gap 7, BUN is 40, creatinine 1.24, glucose 138, phosphorus 3.8, total bilirubin 0.7, AST 23, ALT 23, alkaline phosphatase 171, LDH is 183, CK 117, albumin is 2.4. ASSESSMENT/PLAN: 1. Right pleural effusion, noted to be recurrent. Chest tubes are in place. Appreciate Dr. Parker's input. She did have an infusion of pheresis of platelets yesterday due to low platelet count prior to talc pleurodesis, again appreciate Dr. Parker's input. 2. Liver cirrhosis secondary to nonalcoholic steatohepatitis. Stable on medications. Continue to follow. 3. Hyperkalemia. Will suspend her Aldactone for today since it is a potassium-sparing diuretic. She did receive some IV fluids yesterday around the time of her procedure with some potassium added. At any rate, will suspend the Aldactone and give her a dose or two of Lasix today and repeat her renal profile with potassium. 4. Thrombocytopenia associated with the pancytopenia secondary to cirrhosis and nonalcoholic steatohepatitis. She is not showing any signs of bleeding or bruising currently. 5. Vertigo. Continue with meclizine. 6. Obstructive sleep apnea. Continue with home CPAP machine. 7. Depression. Stable on Lexapro and trazodone. No suicidal ideation. No audiovisual hallucinations. 8. Gastroesophageal reflux disease (GERD). Stable on omeprazole. 9. Diabetes. Continue with sliding scale insulin. Consistent carbohydrate diet. Will resume her coverage with insulin. 10. Deep venous thrombosis (DVT) prophylaxis. Thromboembolic deterrents (TEDs) and sequentials. Will avoid heparin products and anticoagulants due to low platelets. DISPOSITION: Continue to follow along with Dr. Parker. Appreciate his input. The patient most likely still has a prolonged hospital course. Will encourage her to continue to participate with physical therapy while she is here.
[2016-09-01 13:35] LABS: ALBUMIN 2.7 GM/DL (3.2-5.2); CALCIUM LEVEL 8.1 MG/DL (8.8-10.2); CREATININE FOR GFR 1.22 MG/DL (0.55-1.02); GLOMERULAR FILTRATION RATE 47.7 (>45); PHOSPHORUS LEVEL 3.7 MG/DL (2.5-4.9); POTASSIUM SERUM 4.9 MEQ/L (3.5-5.1)
--- NOTE | 2016-09-01 23:20 | IPN ---
DATE: 09/01/2016 This now would be her first postoperative day for Mrs. Palma. She has had a fairly stable night of surgery. She is still a bit groggy but complains of some pain at the tube insertion site and her back. She is on morphine patient-controlled analgesia (BACK TENDER FOURDRINIER) pump, which she has not been using very much. Her vital signs show a maximum temperature (Tmax) of 96.6 with a heart rate that ranges between 70 and 80 in a sinus rhythm. Respiratory rate is constant at 20, who is 90-94% saturated on 2 liters nasal cannula and whose blood pressure is ranging between 97/57 to 108/57. Her intake and output the past 24 hours has been recorded as 510 in and 1142 out for a negativity of 652 mL. She has put out 242 mL from the chest tube. She weighs 1011.4 kg today compared to 110 kg yesterday. On physical examination, she has coarse breath sounds on the right side. I hear very distant breath sounds on the left side secondary to her morbid obesity. Percussion notes are full to the diaphragm as far as I can tell from her morbid obesity. Cardiac exam shows distant heart sounds, without murmurs, clicks, gallops or rubs. S1 and S2 are normal. I cannot feel her point of maximal impulse (PMI) through her morbid obesity. Abdomen is soft, nontender. Bowel sounds are positive. There is no hepatomegaly. No costovertebral angle (CVA) tenderness. Skin is warm, dry, and perfused without cyanosis or mottling. There is no mottling or cyanosis of the nail beds or the knees. Extremities show no pretibial edema, no calf tenderness. No differential swelling of the upper extremities. Neck is supple. There is no jugular venous distention, no subcutaneous emphysema. Trachea is midline. Mouth shows her mucous membranes to be pink and moist. Lips and commissures without lesions. No thrush. Her lips are rather dry, however. Eyes show her pupils to be equal and reactive. Extraocular muscles are intact. Sclerae anicteric. Neurologic shows II-XII intact. Gross motor and gross sensation intact. Gait is not tested. Psychiatric shows her to be awake and alert, oriented times three with appropriate mood and affect, and conversational. Her white count is 3.0 with hemoglobin and hematocrit of 10.5 and 31.6 and a platelet count of 57. Platelet count is down from 86 yesterday. Differential shows 85% neutrophils, 7% lymphocytes, 5% monocytes. There are no immature forms or toxic granulations. Her electrolytes are now normal with a BUN and creatinine of 40 and 1.22. Potassium is 4.9. Glucose is 346 with a calcium 8.11. Albumin is 2.7. Pleural biopsy is still pending. Her chest x-ray shows a poor inspiration. Lung is fully expanded to the chest wall. Chest tubes are in good place. There is some fluid in the fissure as well as some atelectatic compressive changes. There is no subcutaneous emphysema and mediastinum is in the midline. IMPRESSION: 1. 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 2. Cirrhosis. 3. Portal hypertension. 4. Esophageal varices. 5. Steatohepatitis. 6. Hypertension. 7. Diabetes. 8. Depression. 9. Anxiety. 10. Thrombocytopenia. 11. Leukopenia. 12. Hyperlipidemia. 13. Gastroesophageal reflux disease. PLAN AND DISCUSSION: I will continue her on suction today. I will be committed to a straight 5 days of having the chest tube on suction before taking it out. I am still wary about how she is going to do with her liver failure. So far she does not look septic, although I would expect that she would become febrile from the inflammatory response of the talc. I will not hold her heparin because of her thrombocytopenia.
[2016-09-02] VITALS (27 sets, daily range): BP systolic 100–134; BP diastolic 54–73; O2SAT 91–94
[2016-09-02] MEDS: ceFAZolin SOD 1 GM in D5W MINI-BAG PLUS 50 ML IV SCH ×3 (00:14→15:57)
[2016-09-02] MEDS: KETOROLAC 30 MG/ML VIAL (J1885) IV SCH ×2 (00:15→07:00)
[2016-09-02] MEDS: LEVALBUTEROL 1.25 MG/0.5 ML CONCENTRATE NEB NEB SCH ×4 (02:00→19:50)
[2016-09-02 06:46] LABS: BASO % 0.2 % (0.0-1.0); EOS # 0.1 K/mm3 (0.0-0.50); EOS % 2.2 % (0.0-3.0); LARGE UNSTAINED CELL # 0.1 K/mm3 (0.0-0.4); LARGE UNSTAINED CELL % 1.3 % (0.0-4.0); LYMPH # 0.4 K/mm3 (1.5-4.5); LYMPH % 6.4 % (24.0-44.0); MEAN CORPUSCULAR HEMOGLOBIN 31.9 pg (27.0-33.0); MEAN CORPUSCULAR HGB CONC 32.8 g/dl (32.0-36.5); MEAN CORPUSCULAR VOLUME 97.3 fl (80.0-96.0); MONO # 0.3 K/mm3 (0.0-0.8); MONO % 5.4 % (0.0-5.0); NEUTROPHILS # 4.7 K/mm3 (1.8-7.7); NEUTROPHILS % 84.5 % (36.0-66.0); RED CELL DISTRIBUTION WIDTH 13.5 % (11.5-14.5); WHITE BLOOD COUNT 5.5 K/mm3 (4.0-10.0)
[2016-09-02 06:48] LABS: PLATELET COUNT, AUTOMATED 80 k/mm3 (150-450)
[2016-09-02 07:03] LABS: ALBUMIN 2.5 GM/DL (3.2-5.2); ALBUMIN/GLOBULIN RATIO 0.83 (1.00-1.93); CALCIUM LEVEL 7.8 MG/DL (8.8-10.2); CREATININE FOR GFR 1.58 MG/DL (0.55-1.02); GLOMERULAR FILTRATION RATE 35.4 (>45); PHOSPHORUS LEVEL 3.9 MG/DL (2.5-4.9); POTASSIUM SERUM 4.9 MEQ/L (3.5-5.1); TOTAL PROTEIN 5.5 GM/DL (6.4-8.2)
[2016-09-02] MEDS: MOM 30ML SUSPENSION UDC PO SCH (08:30)
[2016-09-02] MEDS: DOCUSATE SODIUM 100 MG CAP PO SCH ×2 (08:31→22:12)
[2016-09-02] MEDS: MECLIZINE 25 MG TABLET PO SCH ×2 (08:31→22:12)
[2016-09-02] MEDS: PANTOPRAZOLE 40MG TAB (PROTONIX) PO SCH (08:31)
[2016-09-02] MEDS: CALCIUM CARBONATE 500 MG CHEW U/D PO SCH ×3 (08:31→17:18)
[2016-09-02] MEDS: ESCITALOPRAM OXALATE 10 MG TAB (LEXAPRO) PO SCH (08:31)
[2016-09-02] MEDS: LEVEMIR (INSULIN DETEMIR) 1 UNITS/0.01ML SC SCH ×2 (08:32→22:11)
[2016-09-02] MEDS: HumaLOG INSULIN (NovoLOG) PER UNIT SC SCH ×4 (08:33→22:12)
[2016-09-02] MEDS: D5W/0.9% SODIUM CHLORIDE 1,000 ML IV SCH (10:51)
[2016-09-02] MEDS: HEPARIN SOD (PORCINE) 5000 UNITS/ML VIAL SC SCH ×2 (10:51→22:13)
--- NOTE | 2016-09-02 10:55 | REP ---
CHEST X-RAY: Two views. HISTORY: Pleural effusion. Comparison chest x-ray September 01, 2016. FINDINGS: Two left-sided chest tubes are noted in place, one near the upper portion of the lung and the other over the diaphragm. The inferior chest tube is seen to have its side-hole in the extrathoracic soft tissues. This is unchanged. There is some plate-like atelectasis in the perihilar region unchanged. Apical pleural thickening is noted on the right. The left lung remains clear. IMPRESSION: Two right-sided chest tubes noted. The inferior chest tube is partially withdrawn with the side hole outside of the chest cavity. There is discoid atelectasis in the right perihilar region and right lower lobe region. Some stable pleural thickening is seen. No evidence of pneumothorax. Signed by Lonny Fu MD 09/02/2016 02:39 P
--- NOTE | 2016-09-02 11:32 | IPN ---
DATE: 09/02/2016 This is now the second postoperative day for Mrs. Palma. Her pain is being more well controlled today. She is complaining of pain at the chest tube insertion sites, but she has been able to get up and walk around and use her incentive spirometer. Her vital signs show a T-max of 98.6 with a heart rate that ranges between 80 and 104 in a sinus rhythm, a respiratory rate of 18 to 20 without the use of accessory muscles and who is 93% to 94% saturated on 2 liters nasal cannula and whose blood pressure is ranging between 100/54 to 115/53. Her intake and output the past 24 hours has been recorded as 2440 in and 1481 out for a positivity of 960 mL. Urine output is 1300 mL with her chest tube output being 181 mL. There is no air leak. Weight today is 113 kg compared to 111.4 kg yesterday. On physical examination, her breath sounds on the right side are more clear today. I hear some bronchophony and transmitted breath sounds. Percussion note is full to the diaphragm as far as I can tell through her morbid obesity. Cardiac Exam: Without murmurs, clicks, gallops, or rubs. I cannot feel her PMI. S1, S2 are normal. Heart sounds are distant. Abdomen: Distended and tympanitic. Bowel sounds however are positive. I cannot feel any hepatomegaly. There is no costovertebral angle (CVA) tenderness. Extremities: Show maybe trace pretibial edema. No calf tenderness. No differential swelling of the upper extremities. Skin: Warm, dry and perfused. Without cyanosis or mottling, including that of the nail beds and knees. Neck: Supple. There is no jugular venous distention. No subcutaneous emphysema. Trachea is midline. Mouth: Shows her mucous membranes to be pink and moist. Lips and commissures are without lesions. There is no thrush. Eyes: Show her pupils to be equal and reactive. Extraocular movements intact. Sclerae nonicteric. Neurologic: Shows II-XII intact along with gross motor and gross sensation intact. Gait is not tested. Psychiatric shows her to be awake, alert, and oriented times three with appropriate mood and affect and conversational. Her white count today is 5.5 with hemoglobin and hematocrit of 10.4 and 31.5 respectively. Platelet count is 80 with a differential that shows 84% neutrophils, 6% lymphocytes, 5% monocytes. There are no immature forms and no toxic granulations. Her electrolytes are normal with a BUN and creatinine however of 52 and 1.58, up from 40 and 1.22 yesterday. Calcium is 7.6. Albumin is 2.5. Chest x-ray is still pending. I will review it in a few minutes as she is going down right now. IMPRESSION: 1. Postoperative day #2 status post talc pleurodesis. 2. 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 3. Cirrhosis. 4. Portal hypertension. 5. Esophageal varices. 6. Steatohepatitis. 7. Hypertension. 8. Diabetes. 9. Depression. 10. Anxiety. 11. Thrombocytopenia. 12. Leukopenia. 13. Hyperlipidemia. 14. Gastroesophageal reflux disease. PLAN AND DISCUSSION: I will continue her chest tube suction today. There is no epidural and I will discontinue her [place] catheter. Her creatinine is starting to creep up and I will therefore reluctantly discontinue her Toradol for pain control. 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 I have encouraged nursing to keep getting her up and walking her around.
--- NOTE | 2016-09-02 14:33 | IPN ---
DATE: 09/02/2016 This is a 60-year-old female seen at bedside. She continues to have chest discomfort. She denies any nausea, vomiting. She is trying to ambulate today. OBJECTIVE: Temperature is 98.7, pulse 101, respiratory rate is 18, blood pressure 108/59, SPO2 is 93% on 2 liters. GENERAL: The patient appears to be in no acute distress. She is pleasant to talk to. HEENT: Unremarkable. LUNGS: Diminished bibasilar breath sounds. HEART: Regular rate and rhythm. ABDOMEN: Soft but obese. EXTREMITIES: No edema. No calf tenderness. LABORATORY DATA: White count is 5.5, hemoglobin is 10.4, platelets are 80,000. Sodium 141, potassium 4.9, chloride 104, bicarbonate 20, anion gap 9, BUN is 52, creatinine is 1.58, glucose 208, phosphorus is 3.9, AST 18, ALT 16, alkaline phosphatase 182, albumin is 2.5. Cultures remain negative. Pleural biopsy was significant for mild acute and chronic inflammatory, as well as reactive mesothelial changes. Cell block did not demonstrate any malignancy. She did have a previous peripheral smear suggesting pancytopenia with sequestration components due to liver cirrhosis. ASSESSMENT/PLAN 1. Pleural effusion, recurrent in nature. Appreciate Dr. Parker's input in managing the chest tube. Status post talc pleurodesis. 2. Liver cirrhosis secondary to nonalcoholic steatohepatitis, stable on current medications. 3. Pancytopenia with thrombocytopenia. She does not appear to be actively bleeding. I did discuss with Dr. Parker whether or not he wanted to continue with the subcutaneous heparin. Her platelet count does appear to be stable currently at 80,000. We will continue to follow 4. Acute kidney injury with elevated creatinine. We will go ahead and suspend the Toradol for right now and continue with other pain management modalities. 5. Hyperkalemia, resolved. We did hold her Aldactone yesterday and gave her a one-time dose of Lasix yesterday. I am going to hold this dose for today and likely resume tomorrow when her renal profile has improved. Nonetheless, I will repeat a renal profile on her later today and again tomorrow morning. 6. Thrombocytopenia, as outlined above, likely related to cirrhosis secondary to nonalcoholic steatohepatitis. 7. Vertigo, stable. Continue meclizine. 8. Obstructive sleep apnea. On home CPAP at bedside. 9. Depression, stable on Lexapro and trazodone. No suicidal ideation. No audiovisual hallucinations. 10. Gastroesophageal reflux disease (GERD). Stable on omeprazole. 11. Diabetes. Consistent carbohydrate diet. Sliding scale insulin. Resume her insulin coverage now that she is back on her meal plan. 12. Deep vein thrombosis (DVT) prophylaxis. She does have had TEDs and sequentials in place. I did discuss with Dr. Parker the use of heparin in this patient. DISPOSITION: We will continue to follow and appreciate Dr. Parker's input. She is likely to have a prolonged hospital course and likely to maintain chest tube for another 4 or 5 days. We will defer to Dr. Parker.
[2016-09-03] VITALS (27 sets, daily range): BP systolic 116–148; BP diastolic 56–75; O2SAT 91–96
[2016-09-03] MEDS: LEVALBUTEROL 1.25 MG/0.5 ML CONCENTRATE NEB NEB SCH ×4 (01:28→19:27)
[2016-09-03 05:27] LABS: BASO % 0.2 % (0.0-1.0); EOS # 0.2 K/mm3 (0.0-0.50); EOS % 2.9 % (0.0-3.0); LARGE UNSTAINED CELL # 0.1 K/mm3 (0.0-0.4); LYMPH # 0.5 K/mm3 (1.5-4.5); LYMPH % 9.2 % (24.0-44.0); MEAN CORPUSCULAR HEMOGLOBIN 31.2 pg (27.0-33.0); MEAN CORPUSCULAR HGB CONC 32.2 g/dl (32.0-36.5); MEAN CORPUSCULAR VOLUME 96.9 fl (80.0-96.0); MONO # 0.3 K/mm3 (0.0-0.8); MONO % 5.6 % (0.0-5.0); NEUTROPHILS # 4.5 K/mm3 (1.8-7.7); NEUTROPHILS % 80.1 % (36.0-66.0); RED CELL DISTRIBUTION WIDTH 13.3 % (11.5-14.5); WHITE BLOOD COUNT 5.6 K/mm3 (4.0-10.0)
[2016-09-03 05:29] LABS: PLATELET COUNT, AUTOMATED 90 k/mm3 (150-450)
[2016-09-03 05:46] LABS: ALBUMIN 2.5 GM/DL (3.2-5.2); CALCIUM LEVEL 8.1 MG/DL (8.8-10.2); CREATININE FOR GFR 1.13 MG/DL (0.55-1.02); GLOMERULAR FILTRATION RATE 52.1 (>45); POTASSIUM SERUM 4.7 MEQ/L (3.5-5.1)
[2016-09-03 05:59] LABS: ALBUMIN/GLOBULIN RATIO 0.61 (1.00-1.93); TOTAL PROTEIN 6.6 GM/DL (6.4-8.2)
[2016-09-03 06:04] LABS: PHOSPHORUS LEVEL 2.4 MG/DL (2.5-4.9)
[2016-09-03] MEDS: HEPARIN SOD (PORCINE) 5000 UNITS/ML VIAL SC SCH ×2 (08:39→21:56)
[2016-09-03] MEDS: MOM 30ML SUSPENSION UDC PO SCH (08:39)
[2016-09-03] MEDS: PANTOPRAZOLE 40MG TAB (PROTONIX) PO SCH (08:39)
[2016-09-03] MEDS: CALCIUM CARBONATE 500 MG CHEW U/D PO SCH ×3 (08:39→18:08)
[2016-09-03] MEDS: DOCUSATE SODIUM 100 MG CAP PO SCH ×2 (08:39→21:56)
[2016-09-03] MEDS: LEVEMIR (INSULIN DETEMIR) 1 UNITS/0.01ML SC SCH ×2 (08:40→21:57)
[2016-09-03] MEDS: MECLIZINE 25 MG TABLET PO SCH ×2 (08:40→21:56)
[2016-09-03] MEDS: ESCITALOPRAM OXALATE 10 MG TAB (LEXAPRO) PO SCH (08:40)
[2016-09-03] MEDS: HumaLOG INSULIN (NovoLOG) PER UNIT SC SCH ×4 (08:41→21:00)
[2016-09-03] MEDS: D5W/0.9% SODIUM CHLORIDE 1,000 ML IV SCH (10:16)
[2016-09-03] MEDS: BISACODYL 10 MG SUPP PR PRN ×2 (10:16→17:24)
--- NOTE | 2016-09-03 11:25 | REP ---
Chest x-ray: Two views. History: Pleural effusion. Comparison study September 02, 2016. Findings: Two right-sided chest tubes remain in place unchanged from yesterday's study. There is plate-like atelectasis in the right mid lung zone. Some diffuse pleural thickening is seen. The left lung remains clear. Impression: No change from the previous day's study. Signed by Lonny Fu MD 09/03/2016 01:14 P
--- NOTE | 2016-09-03 12:21 | IPN ---
DATE OF SERVICE: 09/03/2016 A 60-year-old female seen at bedside. No overnight issues reported. She states that she is resting a little more comfortably through the night, but she does continue to have quite a bit of chest discomfort and pleuritic-type pain. No nausea or vomiting. OBJECTIVE: Temperature is 98, pulse of 97, respiratory rate is 20, blood pressure (BP) 130/56, SpO2 is 94% on 2 liters. General: The patient appears to be in no acute distress, alert and oriented, pleasant to talk to. HEENT: Unremarkable. Lungs: Diminished right breath sounds. Heart: Regular rate and rhythm. Abdomen: Soft, obese. Extremities: No edema. No calf tenderness. LABORATORY DATA: White count 5.6, hemoglobin 10.5, platelets are 90,000. Sodium 135, potassium 4.7, chloride 100, bicarbonate 29, anion gap 6, BUN 37, creatinine 1.13, glucose 263, bilirubin is 2.4, direct bilirubin 2.0, AST 16, ALT 14, alkaline phosphatase 177, albumin 2.5. Portable chest x-ray today. The chest tubes in place on the right times two. Plate-like atelectasis noted in the right midlung zone. Diffuse pleural thickening seen. Left lung is clear. ASSESSMENT AND PLAN: 1. Pleural effusion, recurrent in nature. Appreciate Dr. Parker's management, status post talc pleurodesis and still continues with chest tube. 2. Liver cirrhosis secondary to nonalcoholic steatohepatitis, stable on current medications. 3. Pancytopenia with thrombocytopenia secondary to liver cirrhosis. 4. Acute kidney injury with elevated creatinine. Toradol has been discontinued. Continue to follow. Her creatinine does appear to be improving, trending back towards baseline. 5. Hyperkalemia, resolved. Will likely resume Aldactone once her creatinine is at baseline. Likely resume tomorrow. 6. Thrombocytopenia, as outlined above, related to cirrhosis, nonalcoholic steatohepatitis. 7. Vertigo, stable on meclizine. 8. Obstructive sleep apnea. She can continue the use of her bedside continuous positive airway pressure (CPAP) from home. 9. Depression, stable on Lexapro and trazodone. 10. Gastroesophageal reflux disease, stable on omeprazole. 11. Diabetes. Continue with sliding scale insulin, consistent-carbohydrate diet, and fingersticks. 12. Deep venous thrombosis (DVT) prophylaxis. Thromboembolic deterrents (TEDs) and sequentials. She does have heparin, which we will continue to follow her platelets. As long as they are trending upwards, this should be fine for the time being. DISPOSITION: The patient most likely will continue with the chest tubes for a few more days and appreciate Dr. Parker's input. JOSELUIS
[2016-09-03] MEDS ORDERED: NALOXONE INJ 0.4 MG/1 ML VIAL (J2310) IV STA (18:47)
[2016-09-03] MEDS ORDERED: KETOROLAC 30 MG/ML VIAL (J1885) IV ONE (19:00)
[2016-09-04] VITALS (10 sets, daily range): BP systolic 111–134; BP diastolic 56–63; O2SAT 91–98
[2016-09-04] MEDS: LEVALBUTEROL 1.25 MG/0.5 ML CONCENTRATE NEB NEB SCH ×4 (01:28→20:25)
[2016-09-04 05:35] LABS: BASO % 0.6 % (0.0-1.0); EOS # 0.2 K/mm3 (0.0-0.50); EOS % 3.9 % (0.0-3.0); LARGE UNSTAINED CELL # 0.1 K/mm3 (0.0-0.4); LARGE UNSTAINED CELL % 2.1 % (0.0-4.0); LYMPH # 0.7 K/mm3 (1.5-4.5); LYMPH % 15.7 % (24.0-44.0); MEAN CORPUSCULAR HEMOGLOBIN 32.5 pg (27.0-33.0); MEAN CORPUSCULAR HGB CONC 32.2 g/dl (32.0-36.5); MONO # 0.2 K/mm3 (0.0-0.8); MONO % 5.6 % (0.0-5.0); NEUTROPHILS # 2.8 K/mm3 (1.8-7.7); NEUTROPHILS % 72.2 % (36.0-66.0); WHITE BLOOD COUNT 3.8 K/mm3 (4.0-10.0)
[2016-09-04 05:36] LABS: PLATELET COUNT, AUTOMATED 97 k/mm3 (150-450)
[2016-09-04] MEDS: BISACODYL 10 MG SUPP PR PRN (05:39)
[2016-09-04 05:58] LABS: ALBUMIN 2.3 GM/DL (3.2-5.2); ALBUMIN/GLOBULIN RATIO 0.58 (1.00-1.93); BILIRUBIN,TOTAL 1.6 MG/DL (0.2-1.0); CALCIUM LEVEL 8.1 MG/DL (8.8-10.2); CREATININE FOR GFR 1.01 MG/DL (0.55-1.02); GLOMERULAR FILTRATION RATE 59.3 (>45); PHOSPHORUS LEVEL 2.4 MG/DL (2.5-4.9); POTASSIUM SERUM 4.7 MEQ/L (3.5-5.1); TOTAL PROTEIN 6.3 GM/DL (6.4-8.2)
[2016-09-04] MEDS: CALCIUM CARBONATE 500 MG CHEW U/D PO SCH ×3 (08:00→17:34)
[2016-09-04] MEDS: HumaLOG INSULIN (NovoLOG) PER UNIT SC SCH ×4 (08:40→22:23)
[2016-09-04] MEDS ORDERED: FUROSEMIDE 40 MG/4 ML VIAL (J1940) IV ONE (10:00)
[2016-09-04] MEDS: D5W/0.9% SODIUM CHLORIDE 1,000 ML IV SCH (10:20)
[2016-09-04] MEDS ORDERED: oxyCODONE 5MG TAB PO PRN (10:30)
[2016-09-04] MEDS: MECLIZINE 25 MG TABLET PO SCH ×2 (10:49→22:21)
[2016-09-04] MEDS: PANTOPRAZOLE 40MG TAB (PROTONIX) PO SCH (10:49)
[2016-09-04] MEDS: DOCUSATE SODIUM 100 MG CAP PO SCH ×2 (10:49→22:21)
[2016-09-04] MEDS: MOM 30ML SUSPENSION UDC PO SCH (10:49)
[2016-09-04] MEDS: LEVEMIR (INSULIN DETEMIR) 1 UNITS/0.01ML SC SCH ×2 (10:50→22:20)
[2016-09-04] MEDS: ESCITALOPRAM OXALATE 10 MG TAB (LEXAPRO) PO SCH (10:50)
[2016-09-04] MEDS: HEPARIN SOD (PORCINE) 5000 UNITS/ML VIAL SC SCH ×2 (10:50→22:21)
--- NOTE | 2016-09-04 11:28 | IPNPDOC ---
Assessment/Plan Date Seen The patient was seen on 09/04/16. Problems Problems: (1) Pleural effusion, right Status: Acute Problem Text: recurrent, likely secondary to cirrhosis and recurrent ascites; cytology negative, culture negative; s/p talc pleurodesis and chest tubes; discussed with Dr. Parker, and he will be removing chest tubes today; will transition off of POLE SHAVER HELPER and use breakthrough opioids (2) SOB (shortness of breath) Status: Acute Problem Text: secondary to pleural effusion, now improving (3) KENDRICK (acute kidney injury) Status: Resolved Problem Text: Cr bumped after diuresis and toradol, so now holding home lasix/ aldactone; Cr back to 1.01 today so will one dose of IV lasix; can likely restart home lasix/aldactone tomorrow (4) Obstructive sleep apnea Status: Chronic (5) Portal hypertension with esophageal varices Status: Chronic Problem Text: no report of being on beta tadeo at home; follow up with primary GI (6) Depression Status: Chronic Problem Text: continue home lexapro (7) Diabetes Status: Chronic Problem Text: A1c 7.8; continue home levemir 64u BID; SSI while in house (8) Thrombocytopenia Status: Chronic Problem Text: improved to 97 today; continue to monitor; Dr. Rojo discussed the ppx heparin with Dr. Parker yesterday, and he prefers to continue heparin and closely monitor platelets (9) Ascites Status: Chronic Problem Text: currently holding home lasix/aldactone given KENDRICK; Cr improved today so will one dose of IV lasix; can likely resume home lasix/aldactone tomorrow (10) Liver cirrhosis Status: Chronic Problem Text: secondary to HICKS (11) HTN (hypertension) Status: Chronic Problem Text: currently holding home lasix/aldactone (12) GERD (gastroesophageal reflux disease) Status: Chronic Problem Text: continue PPI (13) Hyperkalemia Status: Resolved Problem Text: now resolved, but will have to monitor closely with PCP when aldactone is restarted Plan / VTE VTE Prophylaxis Ordered?: Yes (heparin) Disposition pending clearance by Dr. Parker, but potentially home tomorrow Subjective Review of Systems CC/HPI The patient is a 60-year-old female admitted with a reason for visit of Pleural Effusion, Right. Events since last encounter was a bit drowsy last night on POLE SHAVER HELPER so had to receive some narcan; now alert and states pain is tolerable Pulmonary: Reports: Pleuritic Chest Pain, Denies: Dyspnea Cardiovascular: Denies: Chest Pain Gastrointestinal: Denies: Vomiting Objective Physical Examination General Exam: Positive: Alert, Cooperative, No Acute Distress Eye Exam: Positive: Conjunctiva & lids normal, EOMI, Negative: Sclera icteric ENT Exam: Positive: Atraumatic Neck Exam: Positive: Supple Chest Exam: Positive: Normal air movement (left chest), Other (chest tube present in the right lateral thorax; BS diminished in right chest) Heart Exam: Positive: Rate Normal, Regular Rhythm Telemetry: Positive: No significant arrhythmia Abdomen Exam: Positive: Normal bowel sounds, Soft Extremity Exam: Positive: Normal pulses, Negative: Edema Skin Exam: Positive: Nl turgor and temperature Neuro Exam: Positive: Normal Speech Psych Exam: Positive: Mental status NL, Mood NL, Oriented x 3 Vital Signs/I&O Vital Signs Date Time Temp Pulse Resp B/P Pulse Ox O2 Delivery O2 Flow Rate FiO2 09/04/16 08:00 96.6 75 18 123/56 95 Nasal Cannula 3.0 I&O- Last 24 Hours up to 6 AM 09/04/16 06:00 Intake Total 2010 ml Output Total 717 ml Balance 1293 ml Laboratory Data Labs 24H Laboratory Tests 2 09/03/16 11:58: Bedside Glucose (Misc Panel) 252H 09/03/16 17:13: Bedside Glucose (Misc Panel) 123H 09/03/16 21:18: Bedside Glucose (Misc Panel) 141H 09/04/16 05:04: Blood Urea Nitrogen 33H, Creatinine 1.01, Sodium Level 138, Potassium Level 4.7 , Chloride Level 103, Carbon Dioxide Level 29, Calcium Level 8.1L, Phosphorus Level 2.4L, Aspartate Amino Transf (AST/SGOT) 19, Alanine Aminotransferase (ALT/ SGPT) 14, Lactate Dehydrogenase 173, Total Creatine Kinase 67, Alkaline Phosphatase 159H, Total Bilirubin 1.6H, Triglycerides Level 163H, Cholesterol Level 171, Total Protein 6.3L, Albumin 2.3L, Albumin/Globulin Ratio 0.58L, Anion Gap 6L, White Blood Count 3.8L, Red Blood Count 3.10L, Hemoglobin 10.1L, Hematocrit 31.4L, Mean Corpuscular Volume 101.0H, Mean Corpuscular Hemoglobin 32.5, Mean Corpuscular Hemoglobin Concent 32.2, Red Cell Distribution Width 14.0 , Platelet Count 97L, Neutrophils (%) (Auto) 72.2H, Lymphocytes (%) (Auto) 15.7L , Monocytes (%) (Auto) 5.6H, Eosinophils (%) (Auto) 3.9H, Basophils (%) (Auto) 0.6, Neutrophils # (Auto) 2.8, Lymphocytes # (Auto) 0.7L, Monocytes # (Auto) 0.2 , Eosinophils # (Auto) 0.2, Basophils # (Auto) 0.0, Glomerular Filtration Rate 59.3, Large Unclassified Cells # 0.1, Large Unclassified Cells % 2.1 CBC/BMP Laboratory Tests 09/04/16 05:04 Calcium Level 8.1 L, Phosphorus Level 2.4 L, Aspartate Amino Transf (AST/SGOT) 19, Alanine Aminotransferase (ALT/SGPT) 14, Lactate Dehydrogenase 173, Total Creatine Kinase 67, Alkaline Phosphatase 159 H, Total Bilirubin 1.6 H, Triglycerides Level 163 H, Cholesterol Level 171, Total Protein 6.3 L, Albumin 2.3 L, Red Blood Count 3.10 L, Mean Corpuscular Volume 101.0 H, Mean Corpuscular Hemoglobin 32.5, Mean Corpuscular Hemoglobin Concent 32.2, Red Cell Distribution Width 14.0, Neutrophils (%) (Auto) 72.2 H, Lymphocytes (%) (Auto) 15.7 L, Monocytes (%) (Auto) 5.6 H, Eosinophils (%) (Auto) 3.9 H, Basophils (%) (Auto) 0.6, Neutrophils # (Auto) 2.8, Lymphocytes # (Auto) 0.7 L, Monocytes # ( Auto) 0.2, Eosinophils # (Auto) 0.2, Basophils # (Auto) 0.0 FSBS Laboratory Tests Test 09/03/16 11:58 09/03/16 17:13 09/03/16 21:18 Range/Units Bedside Glucose (Misc Panel) 252 123 141 80-115 MG/DL Microbiology Microbiology 08/26/16 Blood Culture - Final, Complete NO GROWTH AFTER 5 DAYS 08/26/16 Blood Culture - Final, Complete NO GROWTH AFTER 5 DAYS 08/29/16 Acid Fast Stain - Final, Resulted 08/29/16 Mycobacterial Culture, Resulted Pending 08/29/16 Fungal Smear - Final, Resulted 08/29/16 Fungal Culture, Resulted Pending 08/29/16 Gram Stain - Final, Complete 08/29/16 Body Fluid Culture - Final, Complete 08/29/16 Anaerobic Culture - Final, Complete 08/26/16 Acid Fast Stain - Final, Resulted 08/26/16 Mycobacterial Culture, Resulted Pending 08/26/16 Fungal Smear - Final, Resulted 08/26/16 Fungal Culture, Resulted Pending 08/26/16 Gram Stain - Final, Complete 08/26/16 Body Fluid Culture - Final, Complete 08/26/16 Anaerobic Culture - Final, Complete DORA ROSENTHAL Sep 04, 2016 11:28
[2016-09-04] MEDS: oxyCODONE 5MG TAB PO PRN ×3 (11:53→22:22)
--- NOTE | 2016-09-04 12:14 | IPN ---
DATE OF SERVICE: 09/03/2016 Mrs. Palma is in an extraordinary amount of pain. Her platelet count is 90, and I have gone down to anesthesia, and they continue to be wary of putting an epidural in for fear of a hematoma. We have found out that she has not been pushing the right button with regard to her patient-controlled analgesia (HANDS ASSEMBLER), and perhaps that will indeed help. Her vital signs show a maximum temperature (Tmax) of 98.2 with a heart rate that ranges between 82 and 103 in a sinus rhythm, a respiratory rate of 18-20 without the use of accessory muscles, who is 96% to 91% saturated on 2-3 liters nasal cannula, and whose blood pressure is ranging between 148/75 to 116/62. Her intake and output the past 24 hours has been recorded as 2960 in and 688 out for a positivity of 2200 mL. She has put out 138 mL from the chest tube. She weighs 113.3 kg compared to 113 kg yesterday. On physical examination, she has equal breath sounds on either side with coarse crackles on the right side. I do not hear a pleural friction rub. Percussion notes are full to the diaphragm. Cardiac examination is without murmurs, clicks, gallops, or rubs. I cannot feel her point of maximal impulse (PMI). S1 and S2 are normal. Abdomen: Soft, nontender. Bowel sounds are positive. There is no hepatomegaly that I could feel through the morbid obesity. There is no costovertebral angle (CVA) tenderness. Extremities: Show maybe trace pretibial edema. No calf tenderness. No differential swelling of the upper extremities. Skin: Warm, dry, and perfused. Without cyanosis or mottling, including that of the nail beds and the knees. Neck: Supple. There is no jugular venous distention. No subcutaneous emphysema. Trachea is midline. Mouth: Shows her mucous membranes to be pink and moist. Lips and commissures are without lesions. There is no thrush. Eyes: Show her pupils to be equal and reactive. Extraocular movements intact. Sclerae anicteric. Neurologic: Shows II-XII intact, along with gross motor and gross sensation intact. Gait is not tested. Psychiatric shows her to be awake, alert, and oriented times three, in an extraordinary amount of pain at 10/10. Her white count is 5.6 with a hemoglobin and hematocrit of 10.5 and 32.6, respectively. Platelet count is 90 with a differential that shows 80% neutrophils, 9% lymphocytes, and 5% monocytes. There are no immature forms and no toxic granulations. Her chemistries show essentially normal electrolytes with a BUN and creatinine of 37 and 1.13 again now normalizing. Glucose is 263 with a calcium of 8.1 and a corresponding albumin of 2.5. Her bilirubin is up to 2.0, although she does not look icteric. It should be noted that her peritoneal fluid done on 08/29/2016 showed 74% lymphocytes out of 466 nucleated cells. The glucose is 262, and the total protein was 1.2 compared to a total protein in the pleural fluid of 1.5 and an albumin of 0.6 compared to the fluid of 0.9. Triglycerides were not measured. Her chest x-ray shows the lung fully expanded to the chest wall. Chest tubes are in good place. There is no subcutaneous emphysema. The proximal chest tube hole is outside the chest, but the remainder of the tube is in the costophrenic angle. She is very difficult to keep her chest tubes in place, as she has so much adipose tissue, which pulls on a previously positioned chest tube. IMPRESSION: 1. Postoperative day #3, status post talc pleurodesis. 2. 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 3. Cirrhosis. 4. Portal hypertension. 5. Esophageal varices. 6. Steatohepatitis. 7. Hypertension. 8. Diabetes. 9. Depression. 10. Anxiety. 11. Thrombocytopenia. 12. Leukopenia. 13. Hyperlipidemia. 14. Gastroesophageal reflux disease. 15. Renal insufficiency, improving. PLAN AND DISCUSSION: The nursing staff is going to monitor her ability to work her HANDS ASSEMBLER button. My hands are essentially tied at this point in time if the HANDS ASSEMBLER does not work. We have discontinued her Toradol because of the renal insufficiency.
--- NOTE | 2016-09-04 12:45 | IPN ---
DATE OF SERVICE: 09/04/2016 Mrs. Palma needed Narcan last night, as she was somnolent from her patient-controlled analgesia (CRM COORDINATOR) pump. She is much better today, and she has only had 1 mg of morphine overnight. Her chest tubes have put out very little times 2 days. I will remove them. Her vital signs show a maximum temperature (Tmax) of 98.2 with a heart rate that ranges between 74 and 75 in a sinus rhythm, a respiratory rate of 20-18 without the use of accessory muscles, who is 96% to 95% saturated on 2-3 liters nasal cannula, and whose blood pressure is ranging between 123/56 to 116/56. Her intake and output the past 24 hours has been recorded as 2040 in and 273 out for a positivity of 1300 mL. She has put out 23 mL from the chest tube. Her weight today is 113.1 kg compared to 113.3 kg yesterday. On physical examination, her lungs show breath sounds on either side. There are some faint crackles that I can hear on both sides. Percussion note is full to the diaphragm. Cardiac examination is without murmurs, clicks, gallops, or rubs. I cannot feel her point of maximal impulse (PMI). S1 and S2 are normal. Abdomen: Soft, nontender, much less distended and tympanitic. I cannot feel any hepatomegaly through her morbid obesity. There is no costovertebral angle (CVA) tenderness. Extremities: Show 1+ pretibial edema. No calf tenderness. No differential swelling of the upper extremities. Skin: Warm, dry, and perfused. Without cyanosis or mottling, including that of the nail beds and the knees. Neck: Supple. There is no jugular venous distention. No subcutaneous emphysema. Trachea is midline. Mouth: Shows her mucous membranes to be pink and moist. Lips and commissures are without lesions. There is no thrush. Eyes: Show her pupils to be equal and reactive. Extraocular motions are intact. Sclerae anicteric. Neurologic: Shows II-XII intact, along with gross motor and gross sensation intact. Gait is not tested. Psychiatric shows her to be awake, alert, and oriented times three, with appropriate mood and affect and conversational. Her white count is 3.8 with a hemoglobin and hematocrit of 10.1 and 31.4. Platelet count is 97. That is probably a reacted phase increase from the talc inflammatory response. Differential shows 72% neutrophils, 15% lymphocytes, and 5% monocytes. There are no immature forms and no toxic granulations. Her electrolytes are normal with a BUN and creatinine now of 33 and 1.01 and a glucose of 184. Calcium is 8.1 with a corresponding total protein of 2.3. Her total bilirubin is down to 1.6 from 2.0 yesterday. AST and ALT are normal. Her chest x-ray shows her lung fully expanded to the chest wall. There is no subcutaneous emphysema. The proximal chest tube hole in the costophrenic tube is still outside the chest wall. Costophrenic angles, however, are fairly sharp. IMPRESSION: 1. Postoperative day #4, status post talc pleurodesis. 2. 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 3. Cirrhosis. 4. Portal hypertension. 5. Esophageal varices. 6. Steatohepatitis. 7. Hypertension. 8. Diabetes. 9. Depression. 10. Anxiety. 11. Thrombocytopenia. 12. Leukopenia. 13. Hyperlipidemia. 14. Gastroesophageal reflux disease. 15. Renal insufficiency, resolving. PLAN AND DISCUSSION: I have asked the medical service if they would continue to diurese her until she bumps her creatinine again. I think we need to be very aggressive on her diuresis. I will remove her chest tubes today. Also, discontinue her CRM COORDINATOR pump and give her oral oxycodone. I will avoid acetaminophen secondary to her liver disease. If all goes well, I can see no reason why she could not be discharged tomorrow to home.
--- NOTE | 2016-09-04 16:52 | REP ---
PA and lateral chest: Comparison is 09/03/2016. The two right thoracotomy tubes are unchanged. Right pleural thickening and right lung atelectasis are unchanged. Left lung is clear. Cardiac size is normal. Impression: There is no interval change. Signed by Avelino Nam MD 09/04/2016 04:43 P
[2016-09-05 00:15] VITALS: BP 99/53
[2016-09-05] MEDS: LEVALBUTEROL 1.25 MG/0.5 ML CONCENTRATE NEB NEB SCH ×3 (02:00→13:37)
[2016-09-05 05:36] LABS: BASO % 0.3 % (0.0-1.0); EOS # 0.1 K/mm3 (0.0-0.50); EOS % 5.2 % (0.0-3.0); LARGE UNSTAINED CELL # 0.1 K/mm3 (0.0-0.4); LARGE UNSTAINED CELL % 3.5 % (0.0-4.0); LYMPH # 0.7 K/mm3 (1.5-4.5); MEAN CORPUSCULAR HEMOGLOBIN 31.7 pg (27.0-33.0); MEAN CORPUSCULAR HGB CONC 33.2 g/dl (32.0-36.5); MONO # 0.2 K/mm3 (0.0-0.8); MONO % 8.3 % (0.0-5.0); NEUTROPHILS # 1.4 K/mm3 (1.8-7.7); NEUTROPHILS % 54.7 % (36.0-66.0); PLATELET COUNT, AUTOMATED 102 k/mm3 (150-450); RED CELL DISTRIBUTION WIDTH 13.3 % (11.5-14.5); WHITE BLOOD COUNT 2.6 K/mm3 (4.0-10.0)
[2016-09-05 05:50] VITALS: BP 103/50
[2016-09-05 06:08] LABS: ALBUMIN 2.2 GM/DL (3.2-5.2); ALBUMIN/GLOBULIN RATIO 0.59 (1.00-1.93); ALKALINE PHOSPHATASE 398 U/L (45-117); ALT/SGPT 27 U/L (12-78); ANION GAP 8 MEQ/L (8-16); AST/SGOT 48 U/L (15-37); BILIRUBIN,TOTAL 1.2 MG/DL (0.2-1.0); BLOOD UREA NITROGEN 24 MG/DL (7-18); CALCIUM LEVEL 8.1 MG/DL (8.8-10.2); CARBON DIOXIDE LEVEL 29 MEQ/L (21-32); CHLORIDE LEVEL 104 MEQ/L (98-107); CHOLESTEROL LEVEL 162 MG/DL (< 200); CREATININE FOR GFR 0.84 MG/DL (0.55-1.02); GLOMERULAR FILTRATION RATE > 60.0 (>45); GLUCOSE, FASTING 118 MG/DL (80-110); PHOSPHORUS LEVEL 2.1 MG/DL (2.5-4.9); POTASSIUM SERUM 4.4 MEQ/L (3.5-5.1); SODIUM LEVEL 141 MEQ/L (136-145); TOTAL PROTEIN 5.9 GM/DL (6.4-8.2); TRIGLYCERIDES LEVEL 129 MG/DL (<150)
[2016-09-05] MEDS: oxyCODONE 5MG TAB PO PRN ×2 (06:13→13:03)
[2016-09-05 08:00] VITALS: BP 104/53
--- NOTE | 2016-09-05 08:20 | REP ---
Chest x-ray: Two views. History: Pleural effusion. Comparison chest x-ray September 04, 2016. Findings: EKG monitoring electrodes overlie the chest. The patient's right chest tubes have been removed in the interval since yesterday's study. There is stable pleural thickening on the right. No pneumothorax is seen. Pleural angles remain sharp. The left lung is clear. Heart is not enlarged. Impression: Two right chest tubes removed. Signed by Lonny Fu MD 09/05/2016 10:17 A
[2016-09-05] MEDS: MECLIZINE 25 MG TABLET PO SCH (08:25)
[2016-09-05] MEDS: HEPARIN SOD (PORCINE) 5000 UNITS/ML VIAL SC SCH (08:25)
[2016-09-05] MEDS: ESCITALOPRAM OXALATE 10 MG TAB (LEXAPRO) PO SCH (08:25)
[2016-09-05] MEDS: CALCIUM CARBONATE 500 MG CHEW U/D PO SCH ×2 (08:25→11:59)
[2016-09-05] MEDS: PANTOPRAZOLE 40MG TAB (PROTONIX) PO SCH (08:26)
[2016-09-05] MEDS: DOCUSATE SODIUM 100 MG CAP PO SCH (08:26)
[2016-09-05] MEDS: HumaLOG INSULIN (NovoLOG) PER UNIT SC SCH ×2 (08:26→11:59)
[2016-09-05] MEDS: LEVEMIR (INSULIN DETEMIR) 1 UNITS/0.01ML SC SCH (08:26)
[2016-09-05] MEDS: MOM 30ML SUSPENSION UDC PO SCH (08:27)
[2016-09-05] MEDS ORDERED: SPIRONOLACTONE 25 MG TAB PO SCH (09:00)
[2016-09-05] MEDS ORDERED: FUROSEMIDE 40 MG TAB PO SCH (09:00)
[2016-09-05] MEDS ORDERED: OXYCO5TA PO (11:30)
--- NOTE | 2016-09-05 11:59 | DS.PDOC ---
Discharge Summary General Date of Admission Aug 26, 2016 at 17:09 Date of Discharge 09/05/2016 Discharge Summary DATE OF ADMISSION: 08/26/2016 DATE OF DISCHARGE: 09/05/2016 PRIMARY CARE PHYSICIAN: Dr. 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 It is suspected that this effusion is secondary to her recurrent ascites. She is now status post dual chest tubes in talc pleurodesis by Dr. Parker. 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 Parker, and he removed chest tubes 09/04/16; pain controlled with PO oxycodone (2) SOB - secondary to pleural effusion, now improving (3) KENDRICK (acute kidney injury) - Cr bumped after diuresis and toradol, so held home lasix/aldactone; Cr back to WNL so will restart home lasix/aldactone (4) Obstructive sleep apnea - chronic (5) Portal hypertension with esophageal varices - no report of being on beta tadeo at home; follow up with primary GI (6) Depression - continue home lexapro (7) Diabetes - A1c 7.8; continue home levemir 64u BID; SSI while in house (8) Pancytopenia - chronic; more or less at baseline; will need to be followed by PCP (9) Ascites - have been holding home lasix/aldactone given KENDRICK but will restart today (10) Liver cirrhosis - secondary to [place] (11) HTN - resuming home lasix/aldactone (12) GERD - continue PPI (13) Hyperkalemia - now resolved, but will have to monitor closely with PCP when aldactone is restarted PHYSICAL EXAMINATION ON DISCHARGE: VITAL SIGNS: Vital Signs Date Time Temp Pulse Resp B/P Pulse Ox O2 Delivery O2 Flow Rate FiO2 09/05/16 08:00 Room Air 09/05/16 08:00 97.0 76 18 104/53 91 09/05/16 00:24 3.0 GENERAL: Awake, alert, no acute distress CARDIOVASCULAR EXAMINATION: Regular rate and rhythm, with no rubs, gallops, or murmur. RESPIRATORY EXAMINATION: Clear to auscultation bilaterally with no wheezes, rales, or rhonchi. ABDOMINAL EXAMINATION: Soft, nontender, nondistended. Bowel sounds present. EXTREMITIES: No clubbing or edema noted. 2+ pulses in the radial bilaterally. DISPOSITION: Home DISCHARGE INSTRUCTIONS: Follow-up with PCP within one week. Follow-up with Dr. Parker in 7-10 days. If symptoms return, or if you experience worsening of your symptoms, please call your doctor or return to the emergency department. ITEMS THAT NEED OUTPATIENT FOLLOWUP: Monitor potassium, now that patient has been restarted on Aldactone Monitor chronic pancytopenia Discuss with primary GI the possible need for a beta tadeo, given her history of esophageal varices Patient was seen and examined by me on the day of discharge, and I spent a total time of greater than than 30 minutes on this discharge. Vital Signs/I&Os Vital Signs Date Time Temp Pulse Resp B/P Pulse Ox O2 Delivery O2 Flow Rate FiO2 09/05/16 08:00 Room Air 09/05/16 08:00 97.0 76 18 104/53 91 09/05/16 00:24 3.0 I&O- Last 24 Hours up to 6 AM 09/05/16 05:59 Intake Total 1500 ml Output Total 1000 ml Balance 500 ml Laboratory Data Labs 24H Laboratory Tests 2 09/04/16 17:29: Bedside Glucose (Misc Panel) 206H 09/04/16 21:31: Bedside Glucose (Misc Panel) 227H 09/05/16 05:07: Blood Urea Nitrogen 24H, Creatinine 0.84, Sodium Level 141, Potassium Level 4.4 , Chloride Level 104, Carbon Dioxide Level 29, Calcium Level 8.1L, Phosphorus Level 2.1L, Aspartate Amino Transf (AST/SGOT) 48H, Alanine Aminotransferase (ALT /SGPT) 27, Lactate Dehydrogenase 195, Total Creatine Kinase 37, Alkaline Phosphatase 398H, Total Bilirubin 1.2H, Triglycerides Level 129, Cholesterol Level 162, Total Protein 5.9L, Albumin 2.2L, Albumin/Globulin Ratio 0.59L, Anion Gap 8, White Blood Count 2.6L, Red Blood Count 3.04L, Hemoglobin 9.7L, Hematocrit 29.1L, Mean Corpuscular Volume 99.0H, Mean Corpuscular Hemoglobin 31.7, Mean Corpuscular Hemoglobin Concent 33.2, Red Cell Distribution Width 13.3 , Platelet Count 102L, Neutrophils (%) (Auto) 54.7, Lymphocytes (%) (Auto) 28.0 , Monocytes (%) (Auto) 8.3H, Eosinophils (%) (Auto) 5.2H, Basophils (%) (Auto) 0.3, Neutrophils # (Auto) 1.4L, Lymphocytes # (Auto) 0.7L, Monocytes # (Auto) 0.2, Eosinophils # (Auto) 0.1, Basophils # (Auto) 0.0, Glomerular Filtration Rate > 60.0, Large Unclassified Cells # 0.1, Large Unclassified Cells % 3.5 09/05/16 11:44: Bedside Glucose (Misc Panel) 243H CBC/BMP Laboratory Tests 09/05/16 05:07 Calcium Level 8.1 L, Phosphorus Level 2.1 L, Aspartate Amino Transf (AST/SGOT) 48 H, Alanine Aminotransferase (ALT/SGPT) 27, Lactate Dehydrogenase 195, Total Creatine Kinase 37, Alkaline Phosphatase 398 H, Total Bilirubin 1.2 H, Triglycerides Level 129, Cholesterol Level 162, Total Protein 5.9 L, Albumin 2.2 L, Red Blood Count 3.04 L, Mean Corpuscular Volume 99.0 H, Mean Corpuscular Hemoglobin 31.7, Mean Corpuscular Hemoglobin Concent 33.2, Red Cell Distribution Width 13.3, Neutrophils (%) (Auto) 54.7, Lymphocytes (%) (Auto) 28.0, Monocytes (%) (Auto) 8.3 H, Eosinophils (%) (Auto) 5.2 H, Basophils (%) ( Auto) 0.3, Neutrophils # (Auto) 1.4 L, Lymphocytes # (Auto) 0.7 L, Monocytes # ( Auto) 0.2, Eosinophils # (Auto) 0.1, Basophils # (Auto) 0.0 FSBS Laboratory Tests Test 09/04/16 17:29 09/04/16 21:31 09/05/16 11:44 Range/Units Bedside Glucose (Misc Panel) 206 227 243 80-115 MG/DL Microbiology Microbiology 08/26/16 Blood Culture - Final, Complete NO GROWTH AFTER 5 DAYS 08/26/16 Blood Culture - Final, Complete NO GROWTH AFTER 5 DAYS 08/29/16 Acid Fast Stain - Final, Resulted 08/29/16 Mycobacterial Culture, Resulted Pending 08/29/16 Fungal Smear - Final, Resulted 08/29/16 Fungal Culture, Resulted Pending 08/29/16 Gram Stain - Final, Complete 08/29/16 Body Fluid Culture - Final, Complete 08/29/16 Anaerobic Culture - Final, Complete 08/26/16 Acid Fast Stain - Final, Resulted 08/26/16 Mycobacterial Culture, Resulted Pending 08/26/16 Fungal Smear - Final, Resulted 08/26/16 Fungal Culture, Resulted Pending 08/26/16 Gram Stain - Final, Complete 08/26/16 Body Fluid Culture - Final, Complete 08/26/16 Anaerobic Culture - Final, Complete Medications Scheduled (Iron) 90 Mg Tab 90 MG PO BID Aspirin (Aspirin 81) 81 Mg Tab 81 MG PO DAILY Calcium/Vitamin D (Calcium 500+D 500-400 mg-Unit) 1 Tab Tab 1 TAB PO BID Escitalopram Oxalate (Lexapro) 20 Mg Tab 20 MG PO DAILY Esomeprazole Magnesium Trihydr (Nexium) 40 Mg Cap 40 MG PO DAILY Furosemide (Furosemide) 40 Mg Tab 40 MG PO BID Insulin Aspart (Novolog) 100 U/Ml Inj 1 DOSE SC ACHS PER SLIDING SCALE Insulin Glargine (Lantus) 1 Units/0.01 Ml Susp 64 UNITS SC BID Meclizine HCl (Meclizine HCl) 25 Mg Tab 25 MG PO BID Spironolactone (Spironolactone) 25 Mg Tab 25 MG PO BID Scheduled PRN Oxycodone HCl (Oxycodone HCl) 5 Mg Tab 5 MG PO Q4HP PRN PRN PAIN Trazodone HCl (Trazodone HCl) 50 Mg Tab 50 MG PO QHS PRN PRN SLEEP Allergies Coded Allergies: Candesartan (Unverified Allergy, Unknown, CHEST PAIN, 10/08/15) Hydrochlorothiazide (Unverified Allergy, Unknown, CHEST PAIN, 10/08/15) DORA ROSENTHAL Sep 05, 2016 11:59
[2016-09-05 12:00] VITALS: BP 132/60
== END 2016-09-05 16:33 | disposition home health service (06) | DRG 982 ==
LOC: M ED 15:43 → M ED INP 17:09 → M PCU 17:48
PROVIDERS: ADMIT General Practice; ATTEND Hospitalist
PROC: 0W9930Z Drainage of Right Pleural Cavity with Drainage Device, Percutaneous Approach (ICD-10-PCS; 2016-08-26)
PROC: 0W9G3ZZ Drainage of Peritoneal Cavity, Percutaneous Approach (ICD-10-PCS; 2016-08-29)
PROC: 02HV33Z Insertion of Infusion Device into Superior Vena Cava, Percutaneous Approach (ICD-10-PCS; 2016-08-31)
PROC: 0JH60XZ Insertion of Tunneled Vascular Access Device into Chest Subcutaneous Tissue and Fascia, Open Approach (ICD-10-PCS; 2016-08-31)
PROC: 0BBN4ZX Excision of Right Pleura, Percutaneous Endoscopic Approach, Diagnostic (ICD-10-PCS; principal; 2016-08-31 13:45)
DX: K74.60 Unspecified cirrhosis of liver (principal); N17.9 Acute kidney failure, unspecified; R18.8 Other ascites; K76.6 Portal hypertension; D61.818 Other pancytopenia; I85.00 Esophageal varices without bleeding; J94.0 Chylous effusion; G47.33 Obstructive sleep apnea (adult) (pediatric); F41.9 Anxiety disorder, unspecified; E11.9 Type 2 diabetes mellitus without complications; E78.5 Hyperlipidemia, unspecified; E87.5 Hyperkalemia; Z79.82 Long term (current) use of aspirin; Z79.899 Other long term (current) drug therapy; Z88.8 Allergy status to other drugs, medicaments and biological substances; D69.6 Thrombocytopenia, unspecified; K75.81 Nonalcoholic steatohepatitis (NASH); E66.01 Morbid (severe) obesity due to excess calories; I10 Essential (primary) hypertension; F32.9 Major depressive disorder, single episode, unspecified; K21.9 Gastro-esophageal reflux disease without esophagitis

== ENCOUNTER → 2016-09-09 | Outpatient (CLI) | payer OTHER ==
[~2016-09-09] MED LIST changes: +OXYCO5TA PO
--- NOTE | 2016-09-09 10:53 | REP ---
CHEST X-RAY: TWO VIEWS. HISTORY: Status post talc pleurodesis. Cough with blood-tinged sputum. FINDINGS: There is some pleural thickening along the right lateral chest wall, and very slight blunting of the lateral pleural angle is seen. No free pleural effusion is noted. There is discoid atelectasis in the right mid lung zone. Some discoid atelectasis is visible in the right apex medially and in the right base. These findings are felt to be unchanged from the September 05, 2016 study. Left lung is clear. Heart size is normal. IMPRESSION: Platelike atelectasis in the right upper, lower, and mid lung zone. Pleural thickening. No acute infiltrate seen. Signed by Lonny Fu MD 09/09/2016 01:51 P
== END ==
LOC: M LRY 09:43
PROVIDERS: ATTEND Family Medicine
DX: J98.11 Atelectasis (principal); R05 Cough

== ENCOUNTER → 2016-10-06 | Outpatient (CLI) | payer OTHER ==
[~2016-10-06] MED LIST changes: +OXYC15TA76 PO
--- NOTE | 2016-10-06 10:30 | REP ---
Clinical: Pleural effusion. Technique: PA and lateral. Comparison: 09/09/2016. Findings: Y[place]wntyt-bj-zoewa right pleural effusion with partially loculated collection has increased since prior examination. Aerated lung sweet are relatively clear. Mediastinum and cardiac silhouette are normal. Skeletal structures are intact. Impression: [id number] right pleural effusion with focal loculation along the periphery of the right mid lung zone. Signed by Pk Hansen MD 10/06/2016 10:21 A
== END ==
LOC: M SMT 08:58
PROVIDERS: ATTEND Thoracic Surgery (Cardiothoracic Vascular Surgery)
DX: J90 Pleural effusion, not elsewhere classified (principal)

== ENCOUNTER → 2016-10-10 | Outpatient (REF) | payer OTHER ==
[2016-10-10 13:37] LABS: INR 1.13
[2016-10-10 14:22] LABS: PERCENT SATURATION 18.5 % (13.2-37.4)
== END ==
LOC: M LAB REF 12:52
PROVIDERS: ATTEND Internal Medicine Medical Oncology
DX: D61.818 Other pancytopenia (principal)

== ENCOUNTER 2016-10-11 16:20 | Emergency (ER) | payer OTHER ==
[~2016-10-11] VITALS: Ht 154.9 cm; Wt 108.0 kg
[~2016-10-11 16:20] MED LIST changes: -OXYC15TA76 PO
[2016-10-11] MEDS ORDERED: ASPIRIN 81 MG CHEW TABLET PO ONE (17:15)
--- NOTE | 2016-10-11 17:51 | REP ---
PORTABLE CHEST, ONE VIEW: HISTORY: Chest pain. COMPARISON: 10/06/2016 A moderate sized right pleural effusion is present. A loculated component is present along the lateral aspect of the right hemithorax. Underlying atelectasis or infiltrate in the right lower lobe cannot be excluded. The left lung is clear. The heart is normal in size. IMPRESSION: Moderate sized right pleural effusion with an associated loculated component, unchanged compared to the previous study. Signed by Raymond Holley MD 10/11/2016 06:00 P
[2016-10-11 18:03] LABS: BASO % 0.5 % (0.0-1.0); EOS # 0.3 K/mm3 (0.0-0.50); EOS % 3.8 % (0.0-3.0); LARGE UNSTAINED CELL # 0.1 K/mm3 (0.0-0.4); LARGE UNSTAINED CELL % 1.4 % (0.0-4.0); LYMPH # 1.3 K/mm3 (1.5-4.5); LYMPH % 16.1 % (24.0-44.0); MEAN CORPUSCULAR HEMOGLOBIN 31.9 pg (27.0-33.0); MEAN CORPUSCULAR HGB CONC 32.8 g/dl (32.0-36.5); MEAN CORPUSCULAR VOLUME 97.2 fl (80.0-96.0); MONO # 0.7 K/mm3 (0.0-0.8); MONO % 8.7 % (0.0-5.0); NEUTROPHILS # 5.3 K/mm3 (1.8-7.7); NEUTROPHILS % 69.6 % (36.0-66.0); PLATELET COUNT, AUTOMATED 134 k/mm3 (150-450); RED CELL DISTRIBUTION WIDTH 14.3 % (11.5-14.5); WHITE BLOOD COUNT 7.6 K/mm3 (4.0-10.0)
[2016-10-11 18:31] LABS: ANION GAP 4 MEQ/L (8-16); BLOOD UREA NITROGEN 17 MG/DL (7-18); CALCIUM LEVEL 8.7 MG/DL (8.8-10.2); CARBON DIOXIDE LEVEL 32 MEQ/L (21-32); CHLORIDE LEVEL 108 MEQ/L (98-107); CREATININE FOR GFR 0.89 MG/DL (0.55-1.02); GLOMERULAR FILTRATION RATE > 60.0 (>45); GLUCOSE, FASTING 76 MG/DL (80-110); POTASSIUM SERUM 4.3 MEQ/L (3.5-5.1); SODIUM LEVEL 144 MEQ/L (136-145)
[2016-10-11] MEDS ORDERED: DEXTROSE 50% 50 ML SYRINGE IV STA (18:40)
[2016-10-11] MEDS ORDERED: MORPHINE 4 MG/ML 1ML SYRINGE IV ONE (18:45)
[2016-10-11] MEDS ORDERED: ISOVUE-370 76% 100ML VIAL (Q9967) As Ordered ONE (18:48)
[2016-10-11] MEDS ORDERED: MORPHINE 2 MG/ML 1ML SYRINGE IV ONE ×2 (19:45→22:15)
--- NOTE | 2016-10-11 19:50 | REPUSA ---
HISTORY: Chest pain. TECHNIQUE: Multiple incremental axial, coronal and oblique images are obtained from the thoracic inle t to the upper abdomen. Intravenous contrast material was administered as per pulmonary embolism prot ocol. FINDINGS: There is excellent opacification of pulmonary arterial system without evidence for pulmonary embolism . Aorta is of normal caliber without evidence for dissection or aneurysm. There is evidence of a markedly loculated right pleural effusion. Rounded atelectasis is noted in the right upper lobe. Atelectasis is noted in the right lung base. There is a small hiatal hernia pres ent. There is no evidence of pleural or parenchymal-based mass. There is no evidence of hilar or mediastin al lymphadenopathy. The heart and great vessels are within normal limits. Lobulated liver. Please correlate clinically to exclude cirrhosis. The gallbladder contains innume rable calcified gallstones. Perihepatic and perisplenic ascites is seen. Spleen is enlarged measurin g 15 cm. The visualized pancreas is of normal contour and attenuation characteristics. There is no evidence of adrenal mass. The visualized portions of the kidneys present no abnormalities. The bony structures are free of lytic or blastic lesions. IMPRESSION: 1. Large markedly loculated right pleural effusion. No evidence of PE. 2. Splenomegaly. 3. Gallstones. 4. Ascites. Thank you for your kind referral of this patient. We appreciate the opportunity to participate in th is patient's care.
[2016-10-11] MEDS ORDERED: OXYC15TA76 PO ×2 (21:13→21:43)
[2016-10-11] MEDS ORDERED: oxyCODONE 15 MG CR TAB PO ONE (22:15)
[2016-10-11 22:27] VITALS: BP 115/56
--- NOTE | 2016-10-12 10:42 | ECGEPIP ---
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
== END 2016-10-11 22:43 | disposition home or self-care (01) ==
LOC: EDBD 16:20 → M ED 16:20
DX: J90 Pleural effusion, not elsewhere classified (principal); R07.9 Chest pain, unspecified; E11.9 Type 2 diabetes mellitus without complications; I10 Essential (primary) hypertension; E78.5 Hyperlipidemia, unspecified; K74.60 Unspecified cirrhosis of liver; Z79.82 Long term (current) use of aspirin; Z79.4 Long term (current) use of insulin; Z79.899 Other long term (current) drug therapy
CPT/HCPCS: 36415; 71010; 71275; 80048; 82550; 82553; 83880; 85025; 93005; 93041; 94760; 96374; 96376; 99285; Q9967

== ENCOUNTER 2016-10-16 19:01 | Emergency (ER) | payer OTHER ==
[~2016-10-16] VITALS: Ht 154.9 cm; Wt 105.7 kg
[~2016-10-16 19:01] MED LIST changes: +OXYC15TA76 PO
[2016-10-16] MEDS ORDERED: OXYC1SOL PO (19:22)
[2016-10-16 22:14] LABS: BASO % 0.3 % (0.0-1.0); EOS % 0.9 % (0.0-3.0); LARGE UNSTAINED CELL # 0.1 K/mm3 (0.0-0.4); LYMPH # 0.6 K/mm3 (1.5-4.5); LYMPH % 14.4 % (24.0-44.0); MEAN CORPUSCULAR HGB CONC 32.9 g/dl (32.0-36.5); MEAN CORPUSCULAR VOLUME 97.4 fl (80.0-96.0); MONO # 0.2 K/mm3 (0.0-0.8); MONO % 4.1 % (0.0-5.0); NEUTROPHILS # 3.2 K/mm3 (1.8-7.7); NEUTROPHILS % 78.4 % (36.0-66.0); RED CELL DISTRIBUTION WIDTH 14.1 % (11.5-14.5); WHITE BLOOD COUNT 4.1 K/mm3 (4.0-10.0)
[2016-10-16 22:28] LABS: PLATELET COUNT, AUTOMATED 79 k/mm3 (150-450)
[2016-10-16 22:34] LABS: ALBUMIN 2.3 GM/DL (3.2-5.2); ALBUMIN/GLOBULIN RATIO 0.62 (1.00-1.93); ALKALINE PHOSPHATASE 322 U/L (45-117); ALT/SGPT 31 U/L (12-78); ANION GAP 9 MEQ/L (8-16); AST/SGOT 24 U/L (15-37); BILIRUBIN,DIRECT 0.8 MG/DL (0.0-0.2); BILIRUBIN,TOTAL 1.2 MG/DL (0.2-1.0); BLOOD UREA NITROGEN 19 MG/DL (7-18); CALCIUM LEVEL 7.5 MG/DL (8.8-10.2); CARBON DIOXIDE LEVEL 26 MEQ/L (21-32); CHLORIDE LEVEL 105 MEQ/L (98-107); CREATININE FOR GFR 0.98 MG/DL (0.55-1.02); GLOMERULAR FILTRATION RATE > 60.0 (>45); GLUCOSE, FASTING 273 MG/DL (80-110); POTASSIUM SERUM 3.9 MEQ/L (3.5-5.1); SODIUM LEVEL 140 MEQ/L (136-145)
[2016-10-16 23:33] LABS: ABG BASE EXCESS 0.9 (-2.0-2.0); ABG HCO3 22.3 MEQ/L (22.0-26.0); ABG PARTIAL PRESSURE CO2 26.2 mmHg (35.0-45.0); ABG PARTIAL PRESSURE O2 86.2 mmHg (75.0-100.0); ABG STANDARD HCO3 25.3 MEQ/L (22.0-26.0); ABG TOTAL CO2 23.1 MEQ/L (23.0-31.0); ABG pH (ARTERIAL) 7.548 UNITS (7.350-7.450)
[2016-10-17] MEDS ORDERED: MORPHINE 2 MG/ML 1ML SYRINGE IV ONE (00:15)
[2016-10-17 01:43] VITALS: BP 117/58
--- NOTE | 2016-10-17 09:01 | REP ---
CHEST, TWO VIEWS: HISTORY: Dyspnea. COMPARISON: 10/11/2016. A loculated pleural effusion is present on the right. Increased density is present in the right lower lobe consistent with atelectasis or infiltrate. Linear density is present in the right upper lobe consistent with atelectasis or scar. The left lung is clear. The heart is normal in size. The pulmonary vasculature is normal in appearance. The bony structure is intact. IMPRESSION: 1. Right lower lobe atelectasis or infiltrate. 2. Loculated right pleural effusion. 3. Right upper lobe atelectasis or scar. Signed by Raymond Holley MD 10/17/2016 09:15 A
--- NOTE | 2016-10-18 14:04 | ED PDOC ---
Provider Note cxr formal report faxed to dr morris, and dr ashely rodgers for Ana Manrique MD Oct 18, 2016 14:04
== END 2016-10-17 01:50 | disposition home or self-care (01) ==
LOC: M ED 22:55
DX: R07.81 Pleurodynia (principal); J90 Pleural effusion, not elsewhere classified; Z91.14 Patient's other noncompliance with medication regimen; R91.8 Other nonspecific abnormal finding of lung field; E11.9 Type 2 diabetes mellitus without complications; I10 Essential (primary) hypertension; D69.6 Thrombocytopenia, unspecified; K74.60 Unspecified cirrhosis of liver; Z79.82 Long term (current) use of aspirin; Z79.4 Long term (current) use of insulin; Z79.899 Other long term (current) drug therapy; Z88.6 Allergy status to analgesic agent; Z88.8 Allergy status to other drugs, medicaments and biological substances; Z91.89 Other specified personal risk factors, not elsewhere classified

== ENCOUNTER 2016-10-20 14:52 | Inpatient (IN) | payer OTHER ==
[~2016-10-20] VITALS: Ht 154.9 cm; Wt 106.9 kg
[~2016-10-20 14:52] MED LIST changes: -ASPI81TAEC PO
[2016-10-20 16:03] LABS: BASO % 0.5 % (0.0-1.0); EOS # 0.2 K/mm3 (0.0-0.50); EOS % 3.2 % (0.0-3.0); LARGE UNSTAINED CELL # 0.1 K/mm3 (0.0-0.4); LARGE UNSTAINED CELL % 1.1 % (0.0-4.0); LYMPH # 0.8 K/mm3 (1.5-4.5); LYMPH % 12.8 % (24.0-44.0); MEAN CORPUSCULAR HEMOGLOBIN 31.5 pg (27.0-33.0); MEAN CORPUSCULAR HGB CONC 32.5 g/dl (32.0-36.5); MEAN CORPUSCULAR VOLUME 96.8 fl (80.0-96.0); MONO # 0.3 K/mm3 (0.0-0.8); MONO % 4.7 % (0.0-5.0); NEUTROPHILS # 4.3 K/mm3 (1.8-7.7); NEUTROPHILS % 77.7 % (36.0-66.0); PLATELET COUNT, AUTOMATED 148 k/mm3 (150-450); WHITE BLOOD COUNT 5.6 K/mm3 (4.0-10.0)
[2016-10-20] MEDS ORDERED: MORPHINE 4 MG/ML 1ML SYRINGE IV ONE ×3 (16:15→21:30)
[2016-10-20 17:00] LABS: ALBUMIN 2.5 GM/DL (3.2-5.2); ALBUMIN/GLOBULIN RATIO 0.68 (1.00-1.93); ALKALINE PHOSPHATASE 426 U/L (45-117); ALT/SGPT 29 U/L (12-78); ANION GAP 10 MEQ/L (8-16); AST/SGOT 30 U/L (15-37); BILIRUBIN,DIRECT 0.6 MG/DL (0.0-0.2); BILIRUBIN,TOTAL 1.1 MG/DL (0.2-1.0); BLOOD UREA NITROGEN 11 MG/DL (7-18); CALCIUM LEVEL 8.1 MG/DL (8.8-10.2); CARBON DIOXIDE LEVEL 29 MEQ/L (21-32); CHLORIDE LEVEL 105 MEQ/L (98-107); CREATININE FOR GFR 0.84 MG/DL (0.55-1.02); GLOMERULAR FILTRATION RATE > 60.0 (>45); GLUCOSE, FASTING 167 MG/DL (80-110); POTASSIUM SERUM 3.8 MEQ/L (3.5-5.1); SODIUM LEVEL 144 MEQ/L (136-145); TOTAL PROTEIN 6.2 GM/DL (6.4-8.2)
[2016-10-20] MEDS ORDERED: GASTROGRAFIN SOLUTION 30ML (Q9963) PO ONE ×2 (18:00→18:15)
[2016-10-20] MEDS ORDERED: ISOVUE-370 76% 100ML VIAL (Q9967) As Ordered ONE (19:21)
--- NOTE | 2016-10-20 20:44 | ECGEPIP ---
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
--- NOTE | 2016-10-20 21:10 | REPUSA ---
CLINICAL HISTORY: Right posterior chest pain. TECHNIQUE: Multiple incremental axial, coronal and oblique images are obtained from the thoracic inle t to the upper abdomen. Intravenous contrast material was administered as per pulmonary embolism prot ocol. COMPARISON: Prior study dated 10/11/2016. COMMENTS: Note is made of a complex loculated right pleural effusion. Scarring is seen in the right upper lobe and right lower lobe. There is excellent opacification of pulmonary arterial system without evidence for pulmonary embolism . Aorta is of normal caliber without evidence for dissection or aneurysm. There is no evidence of pleural or parenchymal mass. There is no evidence of hilar or mediastinal ly mphadenopathy. The heart and great vessels are within normal limits. Images of the upper abdomen demonstrate no evidence of adrenal mass. The bony structures are free of lytic or blastic lesions. IMPRESSION: 1. In comparison with the prior study dated 10/11/2016 overall there is no significant interval brandon e. 2. Complex loculated right pleural effusion. 3. Scarring is seen in the right upper lobe and right lower lobe Thank you for your kind referral of this patient. We appreciate the opportunity to participate in thi s patient's care.
--- NOTE | 2016-10-20 21:10 | REPUSA ---
CLINICAL HISTORY: Right posterior chest pain. TECHNIQUE: Multiple axial CT images were obtained through the abdomen and pelvis after administratio n of oral and intravenous contrast material. COMMENTS: The liver is lobulated with irregular complex compatible with cirrhosis. There is no intra or extrah epatic biliary ductal dilatation. The spleen is enlarged measuring 16 cm. The gallbladder is disten ded containing innumerable calcified gallstones. The pancreas is of normal contour and attenuation c haracteristics. There is no evidence of adrenal mass. Both kidneys demonstrate prompt and equal nephrograms. The kidneys are normal in size, shape and con figuration. There is no evidence of renal or ureteral mass. No renal or ureteral calculi are identi fied. There is no hydroureter or hydronephrosis. No evidence for appendicitis. There is no bowel wall thickening. No evidence for small or large bow el obstruction. Diffuse abdominal or pelvic ascites is noted. There is no evidence of intrinsic or extrinsic bladder mass. There is no pelvic ascites or lymphaden opathy. There is umbilical hernia containing fat and fluid. Patient is status post complete hysterectomy. There is complex loculated right pleural effusion noted. The bony structures are free of lytic or bl astic lesions. IMPRESSION: 1. The liver is lobulated with irregular complex compatible with cirrhosis. 2. The spleen is enlarged measuring 16 cm. 3. The gallbladder is distended containing innumerable calcified gallstones. 4. Diffuse abdominal or pelvic ascites is noted. 5. There is umbilical hernia containing fat and fluid. 6. There is complex loculated right pleural effusion noted. Thank you for your kind referral of this patient. We appreciate the opportunity to participate in th is patient's care.
--- NOTE | 2016-10-20 23:00 | REPUSA ---
CLINICAL HISTORY: RUQ pain. TECHNIQUE: Realtime sonographic images were obtained in multiple projections. COMMENTS: The liver is lobulated without evidence of mass or defect. There is no intra or extrahepatic biliary ductal dilatation. The common bile duct measures 6.7 mm. The gallbladder shows evidence of tiny la yered stones. The gallbladder wall measures 3.4 mm and there is no pericholecystic fluid. Ascites n oted at right upper quadrant. The visualized portions of abdominal aorta present no abnormalities. Pancreas is not seen. The spleen is of uniform echo texture and does not appear enlarged. The right kidney measures 12.2 (length) x 5.9 (width) x 6.2 (height) cm, free of hydronephrosis. IMPRESSION: 1. Ascites noted at right upper quadrant. 2. The gallbladder shows evidence of tiny layered stones. 3. Lobulated liver compatible with cirrhosis. Thank you for your kind referral of this patient. We appreciate the opportunity to participate in th is patient's care.
[2016-10-21] MEDS ORDERED: FERR325T PO (00:14)
[2016-10-21] MEDS ORDERED: CALC1TAB17 PO (00:14)
[2016-10-21] MEDS ORDERED: OXYC-517 PO (00:14)
[2016-10-21] MEDS ORDERED: NADO40TA PO (00:14)
[2016-10-21] MEDS ORDERED: ASPI81TAEC PO (00:14)
[2016-10-21] MEDS ORDERED: GLUCAGON FOR INJ 1 MG VIAL (J1610) SC PRN (01:15)
[2016-10-21] MEDS ORDERED: traZODone 50 MG TAB PO PRN (01:15)
[2016-10-21] MEDS ORDERED: ONDANSETRON 4MG/2ML VIAL (J2405) IV PRN (01:15)
[2016-10-21] MEDS ORDERED: DEXTROSE 50% 50 ML SYRINGE IV PRN (01:15)
[2016-10-21] MEDS ORDERED: GLUCOSE 4 GM CHEW TABLET PO PRN (01:15)
[2016-10-21] MEDS ORDERED: ONDANSETRON 4 MG TAB (S0181) PO PRN (01:15)
--- NOTE | 2016-10-21 02:02 | HPEPDOC ---
Medical History and Physical Date of Admission Oct 21, 2016 at 01:06 History and Physical HISTORY AND PHYSICAL Date of admission: 10/21/2016 PCP: Dr. Suzy Cesar Chief complaint: Short of breath, and pain on right side HPI: 61-year-old female with liver cirrhosis and recurrent ascites secondary to HICKS, anxiety, diabetes mellitus type 2, GERD, hyperlipidemia, hypertension, chronic vertigo, depression, esophageal varices, DARIA, migraines who presented to Dr. Parker's office with shortness of breath and right-sided pain. He instructed her to go to the ER for further evaluation. She states that the right -sided pain. Approximately 2-3 weeks ago and has not had any association with nausea or vomiting. She states that she noticed that her shortness of breath started to get worse around that time as well. She has been following closely with Dr. Parker for a loculated pleural effusion. Past medical history: Liver cirrhosis and recurrent ascites secondary to HICKS, anxiety, diabetes mellitus type II, GERD, hyperlipidemia, hypertension, chronic vertigo, depression, esophageal varices, DARIA, migraines Past surgical history: Appendectomy, hysterectomy, hernia repair, history of chest tube complicated by infection, left elbow and shoulder repair, right knee surgery Family history: Her father was an alcoholic who had cirrhosis Social history: The patient does not smoke, and she denies any drug or alcohol use. Allergies: Tylenol, candesartan, hydrochlorothiazide, ibuprofen, tape Review of systems: General: Negative for fever and chills Eyes: Positive for worsening diabetic vision, negative for ocular discharge ENT: Negative for sore throat and nose bleed Cardiovascular: Negative for chest pain and palpitations Respiratory: Positive for cough and shortness of breath GI: Negative for nausea and vomiting, positive for diarrhea Musculoskeletal: Negative for neck and back pain Skin: Negative for rash Neuro: Negative for headache, dizziness, tingling Psych: Negative for depression and suicidal ideation Endocrine: Negative for polyuria : Negative for dysuria Heme: Negative for bruising and bleeding Home meds: See below Physical exam: Vital signs: Vital Sign - Last 24 Hours 10/20/16 10/20/16 10/20/16 10/20/16 14:53 16:30 17:00 18:45 Temp 96.3 96.7 Pulse 57 62 56 Resp 16 18 18 20 B/P 107/61 105/51 111/57 Pulse Ox 97 95 95 97 O2 Delivery Room Air Room Air Room Air 10/20/16 10/20/16 10/20/16 10/20/16 18:45 19:10 19:49 21:40 Temp 96.7 Pulse 56 53 Resp 20 20 16 B/P 111/57 120/58 Pulse Ox 97 98 97 O2 Delivery Room Air Room Air Room Air 10/20/16 10/20/16 10/20/16 10/20/16 21:43 22:07 22:20 22:22 Temp 98.2 Pulse 54 52 Resp 18 18 Pulse Ox 90 91 10/20/16 10/20/16 10/20/16 10/20/16 22:31 22:37 22:38 22:51 Pulse 54 54 Resp 20 B/P 136/63 Pulse Ox 91 91 10/20/16 10/20/16 10/20/16 10/20/16 23:02 23:08 23:32 23:38 Pulse 54 58 B/P 122/61 120/58 Pulse Ox 94 94 10/20/16 10/21/16 10/21/16 10/21/16 23:39 00:02 00:09 00:32 Pulse 58 64 B/P 141/73 125/69 Pulse Ox 94 94 10/21/16 10/21/16 10/21/16 00:39 01:02 01:09 Pulse 60 62 B/P 132/63 Pulse Ox 94 93 Gen.: awake, alert, no acute distress Eyes: Extraocular movements intact, normal sclera ENT: Moist mucous membranes Cardiovascular: RRR, no murmurs rubs or gallops Lungs: clear to auscultation bilaterally, no rales, rhonchi, or wheeze Abdomen: Soft, normal BS, obese, TTP of RLQ and RUQ Musculoskeletal: normal range of motion Extremities: No peripheral edema Neuro: alert and oriented 3, normal speech, no focal deficits Psych: Normal mood with congruent affect Labs and radiology: See below CBC, BMP, lactate, troponin, lipase are all unremarkable UA does not have any evidence of blood nor doesn't indicate infection CT of the chest shows complex loculated right effusion CT of the abdomen and pelvis shows cirrhosis, enlarged spleen, a distended gallbladder with stones, and diffuse ascites Abdominal ultrasound shows no evidence of cholecystitis but does show right upper quadrant ascites Assessment and plan: 61-year-old female with liver cirrhosis and recurrent ascites secondary to HICKS , anxiety, diabetes mellitus type 2, GERD, hyperlipidemia, hypertension, chronic vertigo, depression, esophageal varices, DARIA, migraines who presented to Dr. Parker's office with shortness of breath and right-sided pain. She is admitted with a complex loculated right pleural effusion, as well as ascites. 1. Ascites: We will order an ultrasound-guided paracentesis with fluid studies for tomorrow. 2. Liver cirrhosis secondary to HICKS: Continue home spironolactone, nadolol, Lasix. 3. Complex loculated right pleural effusion: Dr. Parker will see the patient in consultation tomorrow morning. She is currently stable on room air. I suspect that this effusion, plus or minus the ascites, is what is causing her right-sided pain. 4. Anxiety and depression: Continue home Lexapro. 5. Diabetes mellitus type 2: Continue home Lantus 66 units twice a day. Sliding scale insulin while in-house. 6. GERD: Continue home PPI. 7. Hypertension: Continue home Lasix, nadolol, and spironolactone. 8. Chronic vertigo: Continue home meclizine. DVT prophylaxis: SCDs Dispo: admit as an inpatient to the service of Dr. Tiffanie Novoa Vital Signs see above Laboratory Data Labs 24H Laboratory Tests 2 10/20/16 15:53: B-Type Natriuretic Peptide 114H, White Blood Count 5.6, Red Blood Count 3.89L, Hemoglobin 12.2, Hematocrit 37.7, Mean Corpuscular Volume 96.8H, Mean Corpuscular Hemoglobin 31.5, Mean Corpuscular Hemoglobin Concent 32.5, Red Cell Distribution Width 14.0, Platelet Count 148L, Neutrophils (%) (Auto) 77.7H, Lymphocytes (%) (Auto) 12.8L, Monocytes (%) (Auto) 4.7, Eosinophils (%) (Auto) 3.2H, Basophils (%) (Auto) 0.5, Neutrophils # (Auto) 4.3, Lymphocytes # (Auto) 0.8L, Monocytes # (Auto) 0.3, Eosinophils # (Auto) 0.2, Basophils # (Auto) 0.0, Large Unclassified Cells # 0.1, Large Unclassified Cells % 1.1 10/20/16 16:25: Aspartate Amino Transf (AST/SGOT) 30, Alanine Aminotransferase (ALT/SGPT) 29, Alkaline Phosphatase 426H, Total Bilirubin 1.1H, Direct Bilirubin 0.6H, Albumin 2.5L, Albumin/Globulin Ratio 0.68L, Anion Gap 10, Calcium Level 8.1L, Creatine Kinase MB 1.0, Creatine Kinase MB Relative Index 2.63, Glomerular Filtration Rate > 60.0, Lactic Acid (Sepsis) 1.3, Lipase 94, Total Creatine Kinase 38, Total Protein 6.2L, Troponin I < 0.02 10/20/16 17:24: Urine Amorphous Sediment , Urine Appearance HAZY, Urine Color YELLOW, Urine pH 6.0, Urine Specific Marion 1.016, Urine Protein NEGATIVE, Urine Glucose (UA) NEGATIVE, Urine Ketones NEGATIVE, Urine Urobilinogen 4.0H, Urine Bilirubin NEGATIVE, Urine Leukocyte Esterase 1+H, Urine Bacteria (Auto) NEGATIVE, Urine Blood NEGATIVE, Urine Calcium Carbonate Cryst(Auto) , Urine Calcium Oxalate Cryst (Auto) , Urine Calcium Phosphate Dianna (Auto) , Urine Cellular Casts , Urine Cystine Crystals , Urine Granular Casts (Auto) , Urine Hyaline Casts (Auto ) 1, Urine Leucine Crystals , Urine Mucus (Auto) SMALL, Urine Nitrite NEGATIVE, Urine Oval Fat Bodies (Auto) , Urine RBC (Auto) 3, Urine Renal Epithelial Cells , Urine Sperm (Auto) , Urine Squamous Epithelial Cells 2, Urine Transitional Epithelial Cells , Urine Trichomonas (Auto) , Urine Triple Phosphate Cryst (Auto ) , Urine Tyrosine Crystals , Urine Uric Acid Crystals (Auto) , Urine WBC (Auto ) 18H, Urine Waxy Casts (Auto) , Urine Yeast-Like Cells (Auto) 10/20/16 23:00: Bedside Glucose (Misc Panel) 85 CBC/BMP Laboratory Tests 10/20/16 15:53 Red Blood Count 3.89 L, Mean Corpuscular Volume 96.8 H, Mean Corpuscular Hemoglobin 31.5, Mean Corpuscular Hemoglobin Concent 32.5, Red Cell Distribution Width 14.0, Neutrophils (%) (Auto) 77.7 H, Lymphocytes (%) (Auto) 12.8 L, Monocytes (%) (Auto) 4.7, Eosinophils (%) (Auto) 3.2 H, Basophils (%) ( Auto) 0.5, Neutrophils # (Auto) 4.3, Lymphocytes # (Auto) 0.8 L, Monocytes # ( Auto) 0.3, Eosinophils # (Auto) 0.2, Basophils # (Auto) 0.0 10/20/16 16:25 Microbiology Microbiology 10/20/16 Urine Culture, Received Pending Home Medications Scheduled (Calcium/Vitamin D 500-200 mg-Unit) 1 Tab Tab 1 TAB PO BID Aspirin (Aspirin EC) 81 Mg Tabec 81 MG PO DAILY Escitalopram Oxalate (Lexapro) 20 Mg Tab 20 MG PO DAILY Esomeprazole Magnesium Trihydr (Nexium) 40 Mg Cap 40 MG PO DAILY Ferrous Sulfate (Ferrous Sulfate) 325 Mg Tab 325 MG PO TID Furosemide (Furosemide) 40 Mg Tab 40 MG PO BID Insulin Aspart (Novolog) 100 U/Ml Inj 1 DOSE SC ACHS PER SLIDING SCALE Insulin Glargine (Lantus) 1 Units/0.01 Ml Susp 66 UNITS SC BID Meclizine HCl (Meclizine HCl) 25 Mg Tab 25 MG PO BID Nadolol (Nadolol) 40 Mg Tab 40 MG PO DAILY Spironolactone (Spironolactone) 25 Mg Tab 50 MG PO BID Scheduled PRN Oxycodone HCl (Oxycodone HCl) 5 Mg Tab 5 MG PO QHS PRN PRN PAIN Trazodone HCl (Trazodone HCl) 50 Mg Tab 50 MG PO QHS PRN PRN SLEEP Allergies Coded Allergies: Ibuprofen (Unverified Allergy, Severe, LIVER PROBLEM, 10/21/16) TAPE (Verified Allergy, Mild, 10/20/16) Candesartan (Unverified Allergy, Unknown, CHEST PAIN, 10/08/15) Hydrochlorothiazide (Unverified Allergy, Unknown, CHEST PAIN, 10/08/15) Acetaminophen (Unverified Adverse Reaction, Severe, LIVER PROBLEM, 10/21/16 ) DORA ROSENTHAL Oct 21, 2016 02:02
[2016-10-21] MEDS: diphenhydrAMINE 25 MG CAP PO PRN ×3 (03:41→21:34)
[2016-10-21] MEDS: oxyCODONE 5MG TAB PO PRN ×2 (03:42→21:35)
[2016-10-21 04:05] VITALS: BP 123/58
[2016-10-21] MEDS ORDERED: SLF 3 ML SYR IV PRN (04:15)
[2016-10-21] MEDS: SLF 3 ML SYR IV SCH ×3 (06:54→21:35)
[2016-10-21 07:21] LABS: BASO % 0.7 % (0.0-1.0); EOS # 0.1 K/mm3 (0.0-0.50); EOS % 3.4 % (0.0-3.0); LARGE UNSTAINED CELL # 0.1 K/mm3 (0.0-0.4); LARGE UNSTAINED CELL % 1.8 % (0.0-4.0); LYMPH # 0.8 K/mm3 (1.5-4.5); LYMPH % 22.6 % (24.0-44.0); MEAN CORPUSCULAR HEMOGLOBIN 31.5 pg (27.0-33.0); MEAN CORPUSCULAR HGB CONC 32.1 g/dl (32.0-36.5); MEAN CORPUSCULAR VOLUME 98.1 fl (80.0-96.0); MONO # 0.2 K/mm3 (0.0-0.8); MONO % 5.4 % (0.0-5.0); NEUTROPHILS # 2.2 K/mm3 (1.8-7.7); NEUTROPHILS % 66.2 % (36.0-66.0); PLATELET COUNT, AUTOMATED 127 k/mm3 (150-450); RED CELL DISTRIBUTION WIDTH 13.9 % (11.5-14.5); WHITE BLOOD COUNT 3.3 K/mm3 (4.0-10.0)
[2016-10-21 07:40] LABS: ALBUMIN 2.1 GM/DL (3.2-5.2); ALBUMIN/GLOBULIN RATIO 0.51 (1.00-1.93); ALKALINE PHOSPHATASE 373 U/L (45-117); ALT/SGPT 25 U/L (12-78); ANION GAP 8 MEQ/L (8-16); AST/SGOT 24 U/L (15-37); BILIRUBIN,TOTAL 0.6 MG/DL (0.2-1.0); BLOOD UREA NITROGEN 11 MG/DL (7-18); CALCIUM LEVEL 8.3 MG/DL (8.8-10.2); CARBON DIOXIDE LEVEL 31 MEQ/L (21-32); CHLORIDE LEVEL 104 MEQ/L (98-107); CREATININE FOR GFR 0.77 MG/DL (0.55-1.02); GLOMERULAR FILTRATION RATE > 60.0 (>45); GLUCOSE, FASTING 186 MG/DL (80-110); MAGNESIUM LEVEL 1.9 MG/DL (1.8-2.4); POTASSIUM SERUM 3.6 MEQ/L (3.5-5.1); SODIUM LEVEL 143 MEQ/L (136-145); TOTAL PROTEIN 6.2 GM/DL (6.4-8.2)
[2016-10-21 07:56] VITALS: BP 138/63
[2016-10-21] MEDS: ESCITALOPRAM OXALATE 10 MG TAB (LEXAPRO) PO SCH (08:57)
[2016-10-21] MEDS: PANTOPRAZOLE 40MG TAB (PROTONIX) PO SCH (08:57)
[2016-10-21] MEDS: FERROUS SULFATE 325MG TAB PO SCH ×3 (08:57→21:34)
[2016-10-21] MEDS: FUROSEMIDE 40 MG TAB PO SCH ×2 (08:58→21:34)
[2016-10-21] MEDS: NADOLOL 20MG TABLET PO SCH (08:58)
[2016-10-21] MEDS: ASPIRIN 81 MG ENTERIC TAB PO SCH (08:58)
[2016-10-21] MEDS: MECLIZINE 25 MG TABLET PO SCH ×2 (08:58→21:34)
[2016-10-21] MEDS: SPIRONOLACTONE 50 MG TAB PO SCH ×2 (08:58→21:34)
[2016-10-21] MEDS: HumaLOG INSULIN (NovoLOG) PER UNIT SC SCH ×4 (08:59→21:33)
[2016-10-21] MEDS: LEVEMIR (INSULIN DETEMIR) 1 UNITS/0.01ML SC SCH ×2 (08:59→21:34)
[2016-10-21 12:00] VITALS: BP 128/68
[2016-10-21 13:20] VITALS: BP 130/72
--- NOTE | 2016-10-21 13:50 | REP ---
ULTRASOUND GUIDED PARACENTESIS: The procedure was performed under the direct supervision of Dr. Cardoza. The risks and benefits of the procedure were explained to the patient and informed consent was obtained. The largest pocket of fluid was localized in the left lower quadrant using ultrasound guidance. The skin was prepped and draped in a sterile fashion. 1% lidocaine was used as a local anesthetic. Using ultrasound guidance, a 22-gauge needle was inserted and advanced into the fluid. 35 mL of turbid aleksander-colored fluid with withdrawn and sent to the lab. The patient did experience a vasovagal episode. Her blood pressure did drop, however, came back to normal after a few minutes. She was given some juice. She was then discharged from the department. Reviewed by ARMANDO Barlow 10/21/2016 03:37 PEdited and Signed by Avelino Cardoza MD 10/21/2016 04:55 P
[2016-10-21] MEDS: PERCOCET 5MG/325MG TAB PO PRN (13:54)
[2016-10-21 14:13] LABS: SPEC. GRAVITY BODY FLUIDS 1.012 (NOT ESTABLISHED)
[2016-10-21 14:29] LABS: RBC PERITONEAL FLUID < 10 (<10mm3 cells/uL); TNC PERITONEAL FLUID 306 cells/uL (0-20)
[2016-10-21 14:43] LABS: PERITONEAL FL COLOR PALE YELLOW (COLORLESS)
[2016-10-21 14:44] LABS: BF DIFF IF INDICATED? YES (NO)
[2016-10-21 15:38] LABS: CC BF DIFF EXAM CYTOCENTRIFUGE
[2016-10-21 16:00] VITALS: BP 107/51
[2016-10-21 20:00] VITALS: BP 102/54
[2016-10-22] VITALS: BP 102/56
[2016-10-22] MEDS: PERCOCET 5MG/325MG TAB PO PRN (01:18)
[2016-10-22] MEDS ORDERED: CALCIUM CARBONATE 500 MG CHEW U/D PO ONE (01:30)
[2016-10-22 04:00] VITALS: BP 99/54
[2016-10-22 05:15] LABS: BASO % 0.4 % (0.0-1.0); EOS # 0.1 K/mm3 (0.0-0.50); EOS % 2.6 % (0.0-3.0); LARGE UNSTAINED CELL # 0.1 K/mm3 (0.0-0.4); LYMPH # 0.7 K/mm3 (1.5-4.5); LYMPH % 30.1 % (24.0-44.0); MEAN CORPUSCULAR HEMOGLOBIN 30.6 pg (27.0-33.0); MEAN CORPUSCULAR HGB CONC 31.6 g/dl (32.0-36.5); MONO # 0.1 K/mm3 (0.0-0.8); MONO % 5.6 % (0.0-5.0); NEUTROPHILS # 1.4 K/mm3 (1.8-7.7); NEUTROPHILS % 58.3 % (36.0-66.0); PLATELET COUNT, AUTOMATED 107 k/mm3 (150-450); RED CELL DISTRIBUTION WIDTH 13.5 % (11.5-14.5); WHITE BLOOD COUNT 2.3 K/mm3 (4.0-10.0)
[2016-10-22 05:43] LABS: ALBUMIN 2.3 GM/DL (3.2-5.2); ALBUMIN/GLOBULIN RATIO 0.58 (1.00-1.93); ALKALINE PHOSPHATASE 375 U/L (45-117); ALT/SGPT 24 U/L (12-78); ANION GAP 6 MEQ/L (8-16); AST/SGOT 22 U/L (15-37); BILIRUBIN,TOTAL 0.4 MG/DL (0.2-1.0); BLOOD UREA NITROGEN 12 MG/DL (7-18); CALCIUM LEVEL 8.1 MG/DL (8.8-10.2); CARBON DIOXIDE LEVEL 33 MEQ/L (21-32); CHLORIDE LEVEL 105 MEQ/L (98-107); CREATININE FOR GFR 0.78 MG/DL (0.55-1.02); GLOMERULAR FILTRATION RATE > 60.0 (>45); GLUCOSE, FASTING 165 MG/DL (80-110); MAGNESIUM LEVEL 1.8 MG/DL (1.8-2.4); POTASSIUM SERUM 3.6 MEQ/L (3.5-5.1); SODIUM LEVEL 144 MEQ/L (136-145); TOTAL PROTEIN 6.3 GM/DL (6.4-8.2)
[2016-10-22] MEDS: SLF 3 ML SYR IV SCH ×3 (05:55→21:19)
[2016-10-22 08:00] VITALS: BP 115/58
[2016-10-22] MEDS: LEVEMIR (INSULIN DETEMIR) 1 UNITS/0.01ML SC SCH ×2 (08:16→21:18)
[2016-10-22] MEDS: HumaLOG INSULIN (NovoLOG) PER UNIT SC SCH ×4 (08:17→21:00)
[2016-10-22] MEDS: ESCITALOPRAM OXALATE 10 MG TAB (LEXAPRO) PO SCH (08:17)
[2016-10-22] MEDS: CALCIUM CARBONATE 500 MG CHEW U/D PO SCH ×3 (08:17→18:18)
[2016-10-22] MEDS: FUROSEMIDE 40 MG TAB PO SCH ×2 (08:19→21:17)
[2016-10-22] MEDS: NADOLOL 20MG TABLET PO SCH (08:19)
[2016-10-22] MEDS: PANTOPRAZOLE 40MG TAB (PROTONIX) PO SCH (08:19)
[2016-10-22] MEDS: MECLIZINE 25 MG TABLET PO SCH ×2 (08:19→21:17)
[2016-10-22] MEDS: FERROUS SULFATE 325MG TAB PO SCH ×3 (08:19→21:16)
[2016-10-22] MEDS: ASPIRIN 81 MG ENTERIC TAB PO SCH (08:19)
[2016-10-22] MEDS: SPIRONOLACTONE 50 MG TAB PO SCH ×2 (08:19→21:16)
[2016-10-22 12:00] VITALS: BP 110/76
[2016-10-22 16:00] VITALS: BP 98/42
--- NOTE | 2016-10-22 19:27 | IPNPDOC ---
Subjective Date Seen The patient was seen on 10/22/16. Subjective Chief Complaint/HPI The patient is a 61-year-old female admitted with a reason for visit of Pleural Effusion,Ascites. Objective Physical Examination General Exam: Positive: Alert, No Acute Distress Eye Exam: Positive: Conjunctiva & lids normal, EOMI, PERRLA, Negative: Sclera icteric ENT Exam: Positive: Atraumatic, Mucous membr. moist/pink, Pharynx Normal Neck Exam: Positive: Supple, Negative: JVD, thyromegaly Chest Exam: Positive: Clear to auscultation, Normal air movement Heart Exam: Positive: Normal S1, Normal S2, Rate Normal, Regular Rhythm, Negative: Murmurs, Rubs Telemetry: Positive: No significant arrhythmia Extremity Exam: Positive: Normal pulses, Negative: Clubbing, Cyanosis, Edema Skin Exam: Positive: Nl turgor and temperature, Negative: Breakdown, Rash Assessment /Plan Problems (1) Pleurodynia Status: Chronic Problem Text: severe chest pain on the right from below the scapula extending to the front wrapping around the ribs. will continue with oxycodone and tramadol for pain control. 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 patient has recurrent pleural effusion since january 2016 for that had recurrent thoracocentesis followed by chest tube placement which was complicated by becoming infected so was removed .Then the effusion became loculated. In August this year patient again had thoracocentesis followed by talc pleurodesis . Since then has chronic chest pain Dr Parker to see the patient. (3) Liver cirrhosis Status: Chronic Problem Text: Decompensated cirrhosis due to HICKS. Has ascites, hydrothorax, thrombocytopenia, esophageal varices and portal hypertension. Ascitic fluid sent for diagnostic tap did not show any SBP. continue with aldactone, lasix and nadolol. (4) Obstructive sleep apnea Status: Chronic (5) GERD (gastroesophageal reflux disease) Status: Chronic Problem Text: pantoprazole and tums (6) HTN (hypertension) Status: Chronic (7) Depression Status: Chronic Problem Text: lexapro and trazodone continue (8) Pulmonary hypertension Status: Chronic (9) Iron deficiency anemia Status: Chronic (10) Hyperlipidemia Status: Chronic (11) Diabetes Status: Chronic Problem Text: will increase insulin dosage and place on carb consistent diet. (12) Phobia Status: Chronic Problem Text: To needles often has vasovagal syncope when undergoing any procedure like paracentesis /thoracocentesis and iv line insertion if has to be punctured multiple times. Sometimes also has problem with blood draws if they cannot get it at one shot. Plan/VTE VTE Prophylaxis Ordered?: Yes VS, I&O, 24H, Fishbone Vital Signs/I&O Vital Signs Date Time Temp Pulse Resp B/P Pulse Ox O2 Delivery O2 Flow Rate FiO2 10/22/16 18:00 Room Air 10/22/16 16:00 97.1 59 19 98/42 92 10/22/16 01:18 3.0 I&O- Last 24 Hours up to 6 AM 10/22/16 06:00 Intake Total 1500 ml Output Total 725 ml Balance 775 ml Laboratory Data 24H LABS Laboratory Tests 2 10/21/16 21:07: Bedside Glucose (Misc Panel) 318H 10/22/16 04:58: Blood Urea Nitrogen 12, Creatinine 0.78, Sodium Level 144, Potassium Level 3.6, Chloride Level 105, Carbon Dioxide Level 33H, Calcium Level 8.1L, Aspartate Amino Transf (AST/SGOT) 22, Alanine Aminotransferase (ALT/SGPT) 24, Alkaline Phosphatase 375H, Total Bilirubin 0.4, Total Protein 6.3L, Albumin 2.3L, Albumin /Globulin Ratio 0.58L, Anion Gap 6L, White Blood Count 2.3L, Red Blood Count 3.45L, Hemoglobin 10.6L, Hematocrit 33.5L, Mean Corpuscular Volume 97.0H, Mean Corpuscular Hemoglobin 30.6, Mean Corpuscular Hemoglobin Concent 31.6L, Red Cell Distribution Width 13.5, Platelet Count 107L, Neutrophils (%) (Auto) 58.3, Lymphocytes (%) (Auto) 30.1, Monocytes (%) (Auto) 5.6H, Eosinophils (%) (Auto) 2.6, Basophils (%) (Auto) 0.4, Neutrophils # (Auto) 1.4L, Lymphocytes # (Auto) 0.7L, Monocytes # (Auto) 0.1, Eosinophils # (Auto) 0.1, Basophils # (Auto) 0.0, Glomerular Filtration Rate > 60.0, Large Unclassified Cells # 0.1, Large Unclassified Cells % 3.0, Magnesium Level 1.8 10/22/16 12:24: Bedside Glucose (Misc Panel) 188H 10/22/16 16:08: Bedside Glucose (Misc Panel) 330H CBC/BMP Laboratory Tests 10/22/16 04:58 Calcium Level 8.1 L, Aspartate Amino Transf (AST/SGOT) 22, Alanine Aminotransferase (ALT/SGPT) 24, Alkaline Phosphatase 375 H, Total Bilirubin 0.4 , Total Protein 6.3 L, Albumin 2.3 L, Red Blood Count 3.45 L, Mean Corpuscular Volume 97.0 H, Mean Corpuscular Hemoglobin 30.6, Mean Corpuscular Hemoglobin Concent 31.6 L, Red Cell Distribution Width 13.5, Neutrophils (%) (Auto) 58.3, Lymphocytes (%) (Auto) 30.1, Monocytes (%) (Auto) 5.6 H, Eosinophils (%) (Auto) 2.6, Basophils (%) (Auto) 0.4, Neutrophils # (Auto) 1.4 L, Lymphocytes # (Auto) 0.7 L, Monocytes # (Auto) 0.1, Eosinophils # (Auto) 0.1, Basophils # (Auto) 0.0 Microbiology Microbiology 10/21/16 Fungal Smear, Received Pending 10/21/16 Fungal Culture, Received Pending 10/21/16 Anaerobic Culture, Received Pending 10/21/16 Gram Stain - Final, Resulted 10/21/16 Body Fluid Culture, Resulted Pending 10/20/16 Urine Culture - Final, Complete 10/21/16 Acid Fast Stain, Received Pending 10/21/16 Mycobacterial Culture, Received Pending RAUDEL RUDOLPH MD Oct 22, 2016 19:27
[2016-10-22 20:00] VITALS: BP 108/49
[2016-10-22] MEDS: diphenhydrAMINE 25 MG CAP PO PRN (21:16)
[2016-10-22] MEDS: oxyCODONE 5MG TAB PO PRN (21:17)
[2016-10-23] VITALS: BP 123/55
[2016-10-23 04:00] VITALS: BP 107/57
[2016-10-23] MEDS: SLF 3 ML SYR IV SCH ×3 (04:34→21:03)
[2016-10-23] MEDS: PERCOCET 5MG/325MG TAB PO PRN ×2 (04:34→22:43)
[2016-10-23 05:44] LABS: BASO % 0.2 % (0.0-1.0); EOS # 0.1 K/mm3 (0.0-0.50); EOS % 2.4 % (0.0-3.0); LARGE UNSTAINED CELL % 0.8 % (0.0-4.0); LYMPH # 0.8 K/mm3 (1.5-4.5); LYMPH % 26.6 % (24.0-44.0); MEAN CORPUSCULAR HEMOGLOBIN 31.6 pg (27.0-33.0); MEAN CORPUSCULAR HGB CONC 32.7 g/dl (32.0-36.5); MEAN CORPUSCULAR VOLUME 96.8 fl (80.0-96.0); MONO # 0.2 K/mm3 (0.0-0.8); MONO % 7.1 % (0.0-5.0); NEUTROPHILS # 1.7 K/mm3 (1.8-7.7); NEUTROPHILS % 62.8 % (36.0-66.0); PLATELET COUNT, AUTOMATED 117 k/mm3 (150-450); RED CELL DISTRIBUTION WIDTH 13.8 % (11.5-14.5); WHITE BLOOD COUNT 2.8 K/mm3 (4.0-10.0)
[2016-10-23 05:54] LABS: ALBUMIN 2.3 GM/DL (3.2-5.2); ALBUMIN/GLOBULIN RATIO 0.56 (1.00-1.93); ALKALINE PHOSPHATASE 319 U/L (45-117); ALT/SGPT 21 U/L (12-78); ANION GAP 7 MEQ/L (8-16); AST/SGOT 26 U/L (15-37); BILIRUBIN,TOTAL 0.4 MG/DL (0.2-1.0); BLOOD UREA NITROGEN 12 MG/DL (7-18); CARBON DIOXIDE LEVEL 32 MEQ/L (21-32); CHLORIDE LEVEL 104 MEQ/L (98-107); CREATININE FOR GFR 0.71 MG/DL (0.55-1.02); GLOMERULAR FILTRATION RATE > 60.0 (>45); GLUCOSE, FASTING 122 MG/DL (80-110); MAGNESIUM LEVEL 1.8 MG/DL (1.8-2.4); POTASSIUM SERUM 3.3 MEQ/L (3.5-5.1); SODIUM LEVEL 143 MEQ/L (136-145); TOTAL PROTEIN 6.4 GM/DL (6.4-8.2)
[2016-10-23 08:00] VITALS: BP 102/47
[2016-10-23] MEDS: FERROUS SULFATE 325MG TAB PO SCH ×3 (09:08→21:01)
[2016-10-23] MEDS: ESCITALOPRAM OXALATE 10 MG TAB (LEXAPRO) PO SCH (09:08)
[2016-10-23] MEDS: PANTOPRAZOLE 40MG TAB (PROTONIX) PO SCH (09:08)
[2016-10-23] MEDS: CALCIUM CARBONATE 500 MG CHEW U/D PO SCH ×3 (09:08→17:50)
[2016-10-23] MEDS: FUROSEMIDE 40 MG TAB PO SCH ×2 (09:08→21:01)
[2016-10-23] MEDS: MECLIZINE 25 MG TABLET PO SCH ×2 (09:08→21:01)
[2016-10-23] MEDS: ASPIRIN 81 MG ENTERIC TAB PO SCH (09:08)
[2016-10-23] MEDS: SPIRONOLACTONE 50 MG TAB PO SCH ×2 (09:09→21:02)
[2016-10-23] MEDS: POTASSIUM CHLORIDE 10 MEQ SR TABLET PO SCH (09:09)
[2016-10-23] MEDS: NADOLOL 20MG TABLET PO SCH (09:09)
[2016-10-23] MEDS: HumaLOG INSULIN (NovoLOG) PER UNIT SC SCH ×4 (09:10→21:00)
[2016-10-23] MEDS: LEVEMIR (INSULIN DETEMIR) 1 UNITS/0.01ML SC SCH ×2 (09:10→21:02)
[2016-10-23] MEDS: LIDOCAINE 5% (LIDODERM) PATCH TD SCH (09:46)
--- NOTE | 2016-10-23 10:09 | IPNPDOC ---
Subjective Date Seen The patient was seen on 10/23/16. Subjective Chief Complaint/HPI The patient is a 61-year-old female admitted with a reason for visit of Pleural Effusion,Ascites. Events since last encounter This morning chest pain and abdominal pain again worsened after she twisted and turned in bed last night trying to move up. no fever or chills, no shortness of breath , no nausea or vomiting or diarrhea. Objective Physical Examination General Exam: Positive: Alert, No Acute Distress Eye Exam: Positive: Conjunctiva & lids normal, EOMI, PERRLA, Negative: Sclera icteric ENT Exam: Positive: Atraumatic, Mucous membr. moist/pink, Pharynx Normal Neck Exam: Positive: Supple, Negative: JVD, thyromegaly Chest Exam: Positive: Clear to auscultation, Diminished Heart Exam: Positive: Normal S1, Normal S2, Rate Normal, Regular Rhythm, Negative: Murmurs, Rubs Telemetry: Positive: No significant arrhythmia Abdomen Exam: Positive: Normal bowel sounds, Soft, Negative: Hepatospenomegaly, Tenderness Extremity Exam: Positive: Normal pulses, Negative: Clubbing, Cyanosis, Edema Skin Exam: Positive: Nl turgor and temperature, Negative: Breakdown, Rash Assessment /Plan Problems (1) Pleurodynia Status: Chronic Problem Text: severe chest pain on the right from below the scapula extending to the front wrapping around the ribs. 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 patient has recurrent pleural effusion since january 2016 for that had recurrent thoracocentesis followed by chest tube placement which was complicated by becoming infected so was removed .Then the effusion became loculated. In August this year patient again had thoracocentesis followed by talc pleurodesis . Since then has chronic chest pain Dr Parker to see the patient. (3) Liver cirrhosis Status: Chronic Problem Text: Decompensated cirrhosis due to HICKS. Has ascites, hydrothorax, thrombocytopenia, esophageal varices and portal hypertension. Ascitic fluid sent for diagnostic tap did not show any SBP. continue with aldactone, lasix and nadolol. (4) Obstructive sleep apnea Status: Chronic (5) GERD (gastroesophageal reflux disease) Status: Chronic Problem Text: pantoprazole and tums (6) HTN (hypertension) Status: Chronic (7) Depression Status: Chronic Problem Text: lexapro and trazodone continue (8) Pulmonary hypertension Status: Chronic (9) Iron deficiency anemia Status: Chronic (10) Hyperlipidemia Status: Chronic (11) Diabetes Status: Chronic Problem Text: will increase insulin dosage and place on carb consistent diet. (12) Phobia Status: Chronic Problem Text: To needles often has vasovagal syncope when undergoing any procedure like paracentesis /thoracocentesis and iv line insertion if has to be punctured multiple times. Sometimes also has problem with blood draws if they cannot get it at one shot. Plan/VTE VTE Prophylaxis Ordered?: Yes VS, I&O, 24H, Fishbone Vital Signs/I&O Vital Signs Date Time Temp Pulse Resp B/P Pulse Ox O2 Delivery O2 Flow Rate FiO2 10/23/16 09:09 59 102/47 10/23/16 05:15 18 Room Air 10/23/16 04:00 98.8 92 10/22/16 22:00 3.0 I&O- Last 24 Hours up to 6 AM 10/23/16 06:00 Intake Total 1100 ml Output Total 1800 ml Balance -700 ml Laboratory Data 24H LABS Laboratory Tests 2 10/22/16 12:24: Bedside Glucose (Misc Panel) 188H 10/22/16 16:08: Bedside Glucose (Misc Panel) 330H 10/22/16 21:08: Bedside Glucose (Misc Panel) 226H 10/23/16 04:52: Blood Urea Nitrogen 12, Creatinine 0.71, Sodium Level 143, Potassium Level 3.3L , Chloride Level 104, Carbon Dioxide Level 32, Calcium Level 8.0L, Aspartate Amino Transf (AST/SGOT) 26, Alanine Aminotransferase (ALT/SGPT) 21, Alkaline Phosphatase 319H, Total Bilirubin 0.4, Total Protein 6.4, Albumin 2.3L, Albumin/ Globulin Ratio 0.56L, Anion Gap 7L, White Blood Count 2.8L, Red Blood Count 3.40L, Hemoglobin 10.8L, Hematocrit 32.9L, Mean Corpuscular Volume 96.8H, Mean Corpuscular Hemoglobin 31.6, Mean Corpuscular Hemoglobin Concent 32.7, Red Cell Distribution Width 13.8, Platelet Count 117L, Neutrophils (%) (Auto) 62.8, Lymphocytes (%) (Auto) 26.6, Monocytes (%) (Auto) 7.1H, Eosinophils (%) (Auto) 2.4, Basophils (%) (Auto) 0.2, Neutrophils # (Auto) 1.7L, Lymphocytes # (Auto) 0.8L, Monocytes # (Auto) 0.2, Eosinophils # (Auto) 0.1, Basophils # (Auto) 0.0, Glomerular Filtration Rate > 60.0, Large Unclassified Cells # 0.0, Large Unclassified Cells % 0.8, Magnesium Level 1.8 CBC/BMP Laboratory Tests 10/23/16 04:52 Calcium Level 8.0 L, Aspartate Amino Transf (AST/SGOT) 26, Alanine Aminotransferase (ALT/SGPT) 21, Alkaline Phosphatase 319 H, Total Bilirubin 0.4 , Total Protein 6.4, Albumin 2.3 L, Red Blood Count 3.40 L, Mean Corpuscular Volume 96.8 H, Mean Corpuscular Hemoglobin 31.6, Mean Corpuscular Hemoglobin Concent 32.7, Red Cell Distribution Width 13.8, Neutrophils (%) (Auto) 62.8, Lymphocytes (%) (Auto) 26.6, Monocytes (%) (Auto) 7.1 H, Eosinophils (%) (Auto) 2.4, Basophils (%) (Auto) 0.2, Neutrophils # (Auto) 1.7 L, Lymphocytes # (Auto) 0.8 L, Monocytes # (Auto) 0.2, Eosinophils # (Auto) 0.1, Basophils # (Auto) 0.0 Microbiology Microbiology 10/21/16 Fungal Smear, Received Pending 10/21/16 Fungal Culture, Received Pending 10/21/16 Anaerobic Culture - Final, Complete 10/21/16 Gram Stain - Final, Complete 10/21/16 Body Fluid Culture - Final, Complete 10/20/16 Urine Culture - Final, Complete 10/21/16 Acid Fast Stain, Received Pending 10/21/16 Mycobacterial Culture, Received Pending RAUDEL RUDOLPH MD Oct 23, 2016 10:09
[2016-10-23] MEDS: GABAPENTIN 100 MG CAP PO SCH ×2 (12:19→21:02)
[2016-10-23 16:17] VITALS: BP 121/58
[2016-10-23] MEDS: **NOTE PATIENT COMMENT** MISC XX SCH (21:00)
[2016-10-23] MEDS: oxyCODONE 5MG TAB PO PRN (21:20)
[2016-10-23 22:00] VITALS: BP 119/57
[2016-10-24] MEDS: diphenhydrAMINE 25 MG CAP PO PRN (00:58)
[2016-10-24] MEDS: SLF 3 ML SYR IV SCH ×3 (05:07→20:26)
[2016-10-24 06:00] VITALS: BP 126/58
[2016-10-24 06:10] LABS: BASO % 0.6 % (0.0-1.0); EOS # 0.1 K/mm3 (0.0-0.50); EOS % 2.4 % (0.0-3.0); LARGE UNSTAINED CELL % 1.6 % (0.0-4.0); LYMPH # 0.6 K/mm3 (1.5-4.5); LYMPH % 27.5 % (24.0-44.0); MEAN CORPUSCULAR HEMOGLOBIN 31.7 pg (27.0-33.0); MEAN CORPUSCULAR HGB CONC 33.3 g/dl (32.0-36.5); MEAN CORPUSCULAR VOLUME 95.3 fl (80.0-96.0); MONO # 0.1 K/mm3 (0.0-0.8); MONO % 4.5 % (0.0-5.0); NEUTROPHILS # 1.5 K/mm3 (1.8-7.7); NEUTROPHILS % 63.4 % (36.0-66.0); PLATELET COUNT, AUTOMATED 101 k/mm3 (150-450); RED CELL DISTRIBUTION WIDTH 13.7 % (11.5-14.5); WHITE BLOOD COUNT 2.3 K/mm3 (4.0-10.0)
[2016-10-24 06:15] LABS: ALBUMIN 2.3 GM/DL (3.2-5.2); ALBUMIN/GLOBULIN RATIO 0.58 (1.00-1.93); ALKALINE PHOSPHATASE 298 U/L (45-117); ALT/SGPT 19 U/L (12-78); ANION GAP 8 MEQ/L (8-16); AST/SGOT 16 U/L (15-37); BILIRUBIN,TOTAL 0.4 MG/DL (0.2-1.0); BLOOD UREA NITROGEN 11 MG/DL (7-18); CARBON DIOXIDE LEVEL 32 MEQ/L (21-32); CHLORIDE LEVEL 105 MEQ/L (98-107); CREATININE FOR GFR 0.74 MG/DL (0.55-1.02); GLOMERULAR FILTRATION RATE > 60.0 (>45); GLUCOSE, FASTING 156 MG/DL (80-110); MAGNESIUM LEVEL 1.8 MG/DL (1.8-2.4); POTASSIUM SERUM 3.3 MEQ/L (3.5-5.1); SODIUM LEVEL 145 MEQ/L (136-145); TOTAL PROTEIN 6.3 GM/DL (6.4-8.2)
[2016-10-24] MEDS: HumaLOG INSULIN (NovoLOG) PER UNIT SC SCH ×4 (10:00→20:40)
[2016-10-24] MEDS: PANTOPRAZOLE 40MG TAB (PROTONIX) PO SCH (10:01)
[2016-10-24] MEDS: CALCIUM CARBONATE 500 MG CHEW U/D PO SCH ×3 (10:01→17:51)
[2016-10-24] MEDS: MECLIZINE 25 MG TABLET PO SCH ×2 (10:01→20:38)
[2016-10-24] MEDS: POTASSIUM CHLORIDE 10 MEQ SR TABLET PO SCH (10:01)
[2016-10-24] MEDS: SPIRONOLACTONE 50 MG TAB PO SCH ×2 (10:01→20:38)
[2016-10-24] MEDS: GABAPENTIN 100 MG CAP PO SCH ×2 (10:01→20:38)
[2016-10-24] MEDS: FUROSEMIDE 40 MG TAB PO SCH ×2 (10:01→20:39)
[2016-10-24] MEDS: FERROUS SULFATE 325MG TAB PO SCH ×3 (10:01→20:38)
[2016-10-24] MEDS: ASPIRIN 81 MG ENTERIC TAB PO SCH (10:02)
[2016-10-24] MEDS: ESCITALOPRAM OXALATE 10 MG TAB (LEXAPRO) PO SCH (10:02)
[2016-10-24] MEDS: NADOLOL 20MG TABLET PO SCH (10:05)
[2016-10-24] MEDS: LEVEMIR (INSULIN DETEMIR) 1 UNITS/0.01ML SC SCH ×2 (10:06→20:40)
[2016-10-24] MEDS: LIDOCAINE 5% (LIDODERM) PATCH TD SCH (10:06)
--- NOTE | 2016-10-24 12:06 | IPNPDOC ---
Subjective Date Seen The patient was seen on 10/24/16. Subjective Chief Complaint/HPI The patient is a 61-year-old female admitted with a reason for visit of Pleural Effusion,Ascites. Events since last encounter pain a little better now however just received pain medication. no fever or chills, no nausea or vomiting or diarrhea. Objective Physical Examination General Exam: Positive: Alert, No Acute Distress Eye Exam: Positive: Conjunctiva & lids normal, EOMI, PERRLA, Negative: Sclera icteric ENT Exam: Positive: Atraumatic, Mucous membr. moist/pink, Pharynx Normal Neck Exam: Positive: Supple, Negative: JVD, thyromegaly Chest Exam: Positive: Clear to auscultation, Normal air movement Heart Exam: Positive: Normal S1, Normal S2, Rate Normal, Regular Rhythm, Negative: Murmurs, Rubs Telemetry: Positive: No significant arrhythmia Abdomen Exam: Positive: Normal bowel sounds, Soft, Negative: Hepatospenomegaly, Tenderness Extremity Exam: Positive: Normal pulses, Negative: Clubbing, Cyanosis, Edema Skin Exam: Positive: Nl turgor and temperature, Negative: Breakdown, Rash Assessment /Plan Problems (1) Pleurodynia Status: Chronic Problem Text: severe chest pain on the right from below the scapula extending to the front wrapping around the ribs. will continue with oxycodone will give some lidoderm patch and try gabapentin will consult pain pain management. 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 patient has recurrent pleural effusion since january 2016 for that had recurrent thoracocentesis followed by chest tube placement which was complicated by becoming infected so was removed .Then the effusion became loculated. In August this year patient again had thoracocentesis followed by talc pleurodesis . Since then has chronic chest pain Dr Parker to see the patient. (3) Liver cirrhosis Status: Chronic Problem Text: Decompensated cirrhosis due to HICKS. Has ascites, hydrothorax, thrombocytopenia, esophageal varices and portal hypertension. Ascitic fluid sent for diagnostic tap did not show any SBP. continue with aldactone, lasix and nadolol. (4) Obstructive sleep apnea Status: Chronic (5) GERD (gastroesophageal reflux disease) Status: Chronic Problem Text: pantoprazole and tums (6) HTN (hypertension) Status: Chronic (7) Depression Status: Chronic Problem Text: lexapro and trazodone continue (8) Pulmonary hypertension Status: Chronic (9) Iron deficiency anemia Status: Chronic (10) Hyperlipidemia Status: Chronic (11) Diabetes Status: Chronic Problem Text: will increase insulin dosage and place on carb consistent diet. (12) Phobia Status: Chronic Problem Text: To needles often has vasovagal syncope when undergoing any procedure like paracentesis /thoracocentesis and iv line insertion if has to be punctured multiple times. Sometimes also has problem with blood draws if they cannot get it at one shot. Plan/VTE VTE Prophylaxis Ordered?: Yes VS, I&O, 24H, Fishbone Vital Signs/I&O Vital Signs Date Time Temp Pulse Resp B/P Pulse Ox O2 Delivery O2 Flow Rate FiO2 10/24/16 10:05 58 105/53 10/24/16 06:00 98.3 18 93 Room Air 10/22/16 22:00 3.0 I&O- Last 24 Hours up to 6 AM 10/24/16 06:00 Intake Total 1430 ml Output Total 3075 ml Balance -1645 ml Laboratory Data 24H LABS Laboratory Tests 2 10/23/16 15:22: Bedside Glucose (Misc Panel) 303H 10/23/16 20:07: Bedside Glucose (Misc Panel) 319H 10/24/16 05:50: Blood Urea Nitrogen 11, Creatinine 0.74, Sodium Level 145, Potassium Level 3.3L , Chloride Level 105, Carbon Dioxide Level 32, Calcium Level 8.0L, Aspartate Amino Transf (AST/SGOT) 16, Alanine Aminotransferase (ALT/SGPT) 19, Alkaline Phosphatase 298H, Total Bilirubin 0.4, Total Protein 6.3L, Albumin 2.3L, Albumin /Globulin Ratio 0.58L, Anion Gap 8, White Blood Count 2.3L, Red Blood Count 3.38L, Hemoglobin 10.7L, Hematocrit 32.2L, Mean Corpuscular Volume 95.3, Mean Corpuscular Hemoglobin 31.7, Mean Corpuscular Hemoglobin Concent 33.3, Red Cell Distribution Width 13.7, Platelet Count 101L, Neutrophils (%) (Auto) 63.4, Lymphocytes (%) (Auto) 27.5, Monocytes (%) (Auto) 4.5, Eosinophils (%) (Auto) 2.4, Basophils (%) (Auto) 0.6, Neutrophils # (Auto) 1.5L, Lymphocytes # (Auto) 0.6L, Monocytes # (Auto) 0.1, Eosinophils # (Auto) 0.1, Basophils # (Auto) 0.0, Glomerular Filtration Rate > 60.0, Large Unclassified Cells # 0.0, Large Unclassified Cells % 1.6, Magnesium Level 1.8 10/24/16 11:52: Bedside Glucose (Misc Panel) 272H CBC/BMP Laboratory Tests 10/24/16 05:50 Calcium Level 8.0 L, Aspartate Amino Transf (AST/SGOT) 16, Alanine Aminotransferase (ALT/SGPT) 19, Alkaline Phosphatase 298 H, Total Bilirubin 0.4 , Total Protein 6.3 L, Albumin 2.3 L, Red Blood Count 3.38 L, Mean Corpuscular Volume 95.3, Mean Corpuscular Hemoglobin 31.7, Mean Corpuscular Hemoglobin Concent 33.3, Red Cell Distribution Width 13.7, Neutrophils (%) (Auto) 63.4, Lymphocytes (%) (Auto) 27.5, Monocytes (%) (Auto) 4.5, Eosinophils (%) (Auto) 2.4, Basophils (%) (Auto) 0.6, Neutrophils # (Auto) 1.5 L, Lymphocytes # (Auto) 0.6 L, Monocytes # (Auto) 0.1, Eosinophils # (Auto) 0.1, Basophils # (Auto) 0.0 Microbiology Microbiology 10/21/16 Fungal Smear, Received Pending 10/21/16 Fungal Culture, Received Pending 10/21/16 Anaerobic Culture - Final, Complete 10/21/16 Gram Stain - Final, Complete 10/21/16 Body Fluid Culture - Final, Complete 10/20/16 Urine Culture - Final, Complete 10/21/16 Acid Fast Stain, Received Pending 10/21/16 Mycobacterial Culture, Received Pending RAUDEL RUDOLPH MD Oct 24, 2016 12:06
[2016-10-24 14:00] VITALS: BP 109/53
--- NOTE | 2016-10-24 18:05 | CR.PDOC ---
[facility] Pain Clinic Consultation General Date of Consultation: 10/24/16 Consultation Report For: RAUDEL NOVOA MD Chief Complaint The patient is a 61-year-old female admitted with a reason for visit of Pleural Effusion,Ascites. Pain management is asked to see her for ongoing issues with pain control in the right ribs. History of Present Illness Olga Palma is a 61-year-old female who has had several admissions for ascites, pleural effusion, and right rib pain in the area where previous chest tubes had been placed. She been had been experiencing a marked increase in harsh cough and with this had experienced marked increase in her pain. Today she rates her pain level as a 6/10. She has not had any pain medications through the day. Nursing did assist with starting her on a Lidoderm patch which she has found quite helpful. States that she has not been able to do much in terms of standing walking and going about activities of daily living due to the rib area discomfort. Describes the pain as a sharp stabbing aching. States that the back medications are somewhat helpful. States she is looking forward to the use of moist heat tonight as this has been helpful in the past. Home Medications Scheduled (Calcium/Vitamin D 500-200 mg-Unit) 1 Tab Tab 1 TAB PO BID (Reported) Aspirin (Aspirin EC) 81 Mg Tabec 81 MG PO DAILY (Reported) Escitalopram Oxalate (Lexapro) 20 Mg Tab 20 MG PO DAILY (Reported) Esomeprazole Magnesium Trihydr (Nexium) 40 Mg Cap 40 MG PO DAILY (Reported) Ferrous Sulfate (Ferrous Sulfate) 325 Mg Tab 325 MG PO TID (Reported) Furosemide (Furosemide) 40 Mg Tab 40 MG PO BID (Reported) Insulin Aspart (Novolog) 100 U/Ml Inj 1 DOSE SC ACHS (Reported) PER SLIDING SCALE Insulin Glargine (Lantus) 1 Units/0.01 Ml Susp 66 UNITS SC BID (Reported) Meclizine HCl (Meclizine HCl) 25 Mg Tab 25 MG PO BID (Reported) Nadolol (Nadolol) 40 Mg Tab 40 MG PO DAILY (Reported) Spironolactone (Spironolactone) 25 Mg Tab 50 MG PO BID (Reported) Scheduled PRN Oxycodone HCl (Oxycodone HCl) 5 Mg Tab 5 MG PO QHS PRN PRN PAIN (Reported) Trazodone HCl (Trazodone HCl) 50 Mg Tab 50 MG PO QHS PRN PRN SLEEP (Reported) Allergies Coded Allergies: Ibuprofen (Unverified Allergy, Severe, LIVER PROBLEM, 10/21/16) TAPE (Verified Allergy, Mild, 10/20/16) Candesartan (Unverified Allergy, Unknown, CHEST PAIN, 10/08/15) Hydrochlorothiazide (Unverified Allergy, Unknown, CHEST PAIN, 10/08/15) Acetaminophen (Unverified Adverse Reaction, Severe, LIVER PROBLEM, 10/21/16 ) Social History Social History Denies tobacco, alcohol, or illicit substance abuse. Review of Systems Subjective Constitutional: Reports: chills (denies), fatigue, fever (denies), Denies: unexplained weight loss Skin: Reports: breakdown, bruising, change in color, change in hair/nails, dryness, itching, jaundice, lesions (tender at previous chest tube insertion site), lumps, other, rash Pulmonary: Reports: stridor, Denies: cough, orthopnea, shortness of breath Cardiovascular: Reports: chest pain (right ribs and chest wall) Gastrointestinal: Reports: normal bowel movements, other (abdominal fullness from acites) Genitourinary: Reports: frequency, hematuria, normal urination Endocrine: Denies: Diabetes mellitus Musculoskeletal: Reports: midthoracic pain (right side), muscle stiffness, spasms Neurological: Denies: headache, migraines, seizures, tremors, weakness Psych: Reports: mood normal, Denies: thoughts of harming other, thoughts of self harm Physical Examination Physical Examination Vital Signs/I&O Vital Signs Date Time Temp Pulse Resp B/P Pulse Ox O2 Delivery O2 Flow Rate FiO2 10/24/16 14:00 97.1 64 18 109/53 93 Room Air 10/22/16 22:00 3.0 I&O- Last 24 Hours up to 6 AM 10/24/16 06:00 Intake Total 1430 ml Output Total 3075 ml Balance -1645 ml General Exam: Positive: alert, attentive, no acute distress, oriented times three, talkative ENT EXAM: Positive: normocephalic Chest Exam: Positive: Clear to auscultation, Decreased breath sounds (right lower lobes), Other (Point tenderness [id number] and 8 ribs at mid clavicular line. chest tube insertion sitesnoted right posterior chest wall, well approximated but slightly most in appearance. No errythema over the chest wall. ), Negative: Rales, Wheezing Heart Exam: Positive: Normal S1, S2, Regular rate and rhythm, Negative: Murmurs, Rubs Abdominal Exam: Positive: BS Hypoactive, Other (firm, distended) Musculoskeletal No focal weakness. Muscle strength 5/5 bilateral upper and lower extremites Laboratory Data Labs 24H Laboratory Tests 2 10/23/16 20:07: Bedside Glucose (Misc Panel) 319H 10/24/16 05:50: Blood Urea Nitrogen 11, Creatinine 0.74, Sodium Level 145, Potassium Level 3.3L , Chloride Level 105, Carbon Dioxide Level 32, Calcium Level 8.0L, Aspartate Amino Transf (AST/SGOT) 16, Alanine Aminotransferase (ALT/SGPT) 19, Alkaline Phosphatase 298H, Total Bilirubin 0.4, Total Protein 6.3L, Albumin 2.3L, Albumin /Globulin Ratio 0.58L, Anion Gap 8, White Blood Count 2.3L, Red Blood Count 3.38L, Hemoglobin 10.7L, Hematocrit 32.2L, Mean Corpuscular Volume 95.3, Mean Corpuscular Hemoglobin 31.7, Mean Corpuscular Hemoglobin Concent 33.3, Red Cell Distribution Width 13.7, Platelet Count 101L, Neutrophils (%) (Auto) 63.4, Lymphocytes (%) (Auto) 27.5, Monocytes (%) (Auto) 4.5, Eosinophils (%) (Auto) 2.4, Basophils (%) (Auto) 0.6, Neutrophils # (Auto) 1.5L, Lymphocytes # (Auto) 0.6L, Monocytes # (Auto) 0.1, Eosinophils # (Auto) 0.1, Basophils # (Auto) 0.0, Glomerular Filtration Rate > 60.0, Large Unclassified Cells # 0.0, Large Unclassified Cells % 1.6, Magnesium Level 1.8 10/24/16 11:52: Bedside Glucose (Misc Panel) 272H 10/24/16 16:33: Bedside Glucose (Misc Panel) 363H CBC/BMP Laboratory Tests 10/24/16 05:50 Calcium Level 8.0 L, Aspartate Amino Transf (AST/SGOT) 16, Alanine Aminotransferase (ALT/SGPT) 19, Alkaline Phosphatase 298 H, Total Bilirubin 0.4 , Total Protein 6.3 L, Albumin 2.3 L, Red Blood Count 3.38 L, Mean Corpuscular Volume 95.3, Mean Corpuscular Hemoglobin 31.7, Mean Corpuscular Hemoglobin Concent 33.3, Red Cell Distribution Width 13.7, Neutrophils (%) (Auto) 63.4, Lymphocytes (%) (Auto) 27.5, Monocytes (%) (Auto) 4.5, Eosinophils (%) (Auto) 2.4, Basophils (%) (Auto) 0.6, Neutrophils # (Auto) 1.5 L, Lymphocytes # (Auto) 0.6 L, Monocytes # (Auto) 0.1, Eosinophils # (Auto) 0.1, Basophils # (Auto) 0.0 FSBS Laboratory Tests Test 10/23/16 20:07 10/24/16 11:52 10/24/16 16:33 Range/Units Bedside Glucose (Misc Panel) 319 272 363 80-115 MG/DL Assessment 1. 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 Multiple medical problems including HASH with significant acites Recommendation and Plan Discussed options for care with the patients. She has medications for pain already ordered which are used infrequently during the day but is taken at night with good effect. Lidoderm patch started today which she is also reporting as helpful. Moist heat is ordered to start this evening after the lidoderm patch is removed. We did discuss option of intercostal nerve block but she declined this intervention as she is terrified of injections and needles. At this time would make no other changes. Thank you Dr. Novoa, for allowing us to participate in the care of your patient . Should you have any questions we'll be glad to discuss this with you at any time please contact us here at the pain center at [phone]. Renetta Montemayor Oct 24, 2016 18:05
[2016-10-24] MEDS: **NOTE PATIENT COMMENT** MISC XX SCH (20:26)
[2016-10-24] MEDS: oxyCODONE 5MG TAB PO PRN (20:40)
[2016-10-24 22:00] VITALS: BP 112/54
[2016-10-24] MEDS: PERCOCET 5MG/325MG TAB PO PRN (22:08)
[2016-10-25] MEDS: PERCOCET 5MG/325MG TAB PO PRN (05:40)
[2016-10-25 06:00] VITALS: BP 106/57
[2016-10-25 07:10] LABS: BASO % 0.5 % (0.0-1.0); EOS # 0.1 K/mm3 (0.0-0.50); EOS % 2.2 % (0.0-3.0); LARGE UNSTAINED CELL # 0.1 K/mm3 (0.0-0.4); LARGE UNSTAINED CELL % 2.6 % (0.0-4.0); LYMPH # 0.7 K/mm3 (1.5-4.5); LYMPH % 25.5 % (24.0-44.0); MONO # 0.2 K/mm3 (0.0-0.8); MONO % 5.9 % (0.0-5.0); NEUTROPHILS # 1.8 K/mm3 (1.8-7.7); NEUTROPHILS % 63.4 % (36.0-66.0); PLATELET COUNT, AUTOMATED 108 k/mm3 (150-450); RED CELL DISTRIBUTION WIDTH 13.8 % (11.5-14.5); WHITE BLOOD COUNT 2.8 K/mm3 (4.0-10.0)
[2016-10-25 07:29] LABS: ALBUMIN 2.4 GM/DL (3.2-5.2); ALBUMIN/GLOBULIN RATIO 0.59 (1.00-1.93); ALKALINE PHOSPHATASE 289 U/L (45-117); ALT/SGPT 20 U/L (12-78); ANION GAP 5 MEQ/L (8-16); AST/SGOT 25 U/L (15-37); BILIRUBIN,TOTAL 0.4 MG/DL (0.2-1.0); BLOOD UREA NITROGEN 12 MG/DL (7-18); CALCIUM LEVEL 8.4 MG/DL (8.8-10.2); CARBON DIOXIDE LEVEL 36 MEQ/L (21-32); CHLORIDE LEVEL 104 MEQ/L (98-107); CREATININE FOR GFR 0.77 MG/DL (0.55-1.02); GLOMERULAR FILTRATION RATE > 60.0 (>45); GLUCOSE, FASTING 88 MG/DL (80-110); POTASSIUM SERUM 3.6 MEQ/L (3.5-5.1); SODIUM LEVEL 145 MEQ/L (136-145); TOTAL PROTEIN 6.5 GM/DL (6.4-8.2)
[2016-10-25] MEDS: HumaLOG INSULIN (NovoLOG) PER UNIT SC SCH ×4 (07:30→21:31)
[2016-10-25] MEDS: NADOLOL 20MG TABLET PO SCH (09:00)
[2016-10-25] MEDS: CALCIUM CARBONATE 500 MG CHEW U/D PO SCH ×3 (09:07→17:30)
[2016-10-25 09:08] VITALS: BP 100/53
[2016-10-25] MEDS: ESCITALOPRAM OXALATE 10 MG TAB (LEXAPRO) PO SCH (09:09)
[2016-10-25] MEDS: MECLIZINE 25 MG TABLET PO SCH ×2 (09:09→21:31)
[2016-10-25] MEDS: GABAPENTIN 100 MG CAP PO SCH ×2 (09:10→21:31)
[2016-10-25] MEDS: POTASSIUM CHLORIDE 10 MEQ SR TABLET PO SCH (09:10)
[2016-10-25] MEDS: FERROUS SULFATE 325MG TAB PO SCH ×3 (09:10→21:31)
[2016-10-25] MEDS: PANTOPRAZOLE 40MG TAB (PROTONIX) PO SCH (09:10)
[2016-10-25] MEDS: LIDOCAINE 5% (LIDODERM) PATCH TD SCH (09:10)
[2016-10-25] MEDS: ASPIRIN 81 MG ENTERIC TAB PO SCH (09:12)
[2016-10-25] MEDS: LEVEMIR (INSULIN DETEMIR) 1 UNITS/0.01ML SC SCH ×2 (09:14→21:30)
[2016-10-25 11:05] VITALS: BP 105/59
[2016-10-25] MEDS: SPIRONOLACTONE 50 MG TAB PO SCH ×2 (11:18→21:31)
[2016-10-25] MEDS: FUROSEMIDE 40 MG TAB PO SCH ×2 (11:18→21:31)
[2016-10-25 14:00] VITALS: BP 122/60
--- NOTE | 2016-10-25 14:25 | IPNPDOC ---
Subjective Date Seen The patient was seen on 10/25/16. Subjective Chief Complaint/HPI The patient is a 61-year-old female admitted with a reason for visit of Pleural Effusion,Ascites. Events since last encounter pt seen and examined, doing well, no overnight events, pain is better, Objective Physical Examination General Exam: Positive: Alert, No Acute Distress Eye Exam: Positive: Conjunctiva & lids normal, EOMI, PERRLA, Negative: Sclera icteric ENT Exam: Positive: Atraumatic, Mucous membr. moist/pink, Pharynx Normal Neck Exam: Positive: Supple, Negative: JVD, thyromegaly Chest Exam: Positive: Clear to auscultation, Normal air movement Heart Exam: Positive: Normal S1, Normal S2, Rate Normal, Regular Rhythm, Negative: Murmurs, Rubs Telemetry: Positive: No significant arrhythmia Abdomen Exam: Positive: Normal bowel sounds, Soft, Negative: Hepatospenomegaly, Tenderness Extremity Exam: Positive: Normal pulses, Negative: Clubbing, Cyanosis, Edema Skin Exam: Positive: Nl turgor and temperature, Negative: Breakdown, Rash Assessment /Plan Problems (1) Pleurodynia Status: Chronic Problem Text: pain is controlled will continue with oxycodone will give some lidoderm patch, gabapentin and Roxicodone pain management saw pt and recommended to continue current regimen (2) Pleural effusion associated with hepatic disorder Status: Chronic Problem Text: * 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 * patient has recurrent pleural effusion since January 2016 for that had recurrent thoracocentesis followed by chest tube placement which was complicated by becoming infected so was removed .Then the effusion became loculated. In August this year patient again had thoracocentesis followed by talc pleurodesis . Since then has chronic chest pain * Dr Parker saw pt, no plans for any procedures at this time * oxygen saturation is 93-94% on room air (3) Liver cirrhosis Status: Chronic Problem Text: Decompensated cirrhosis due to HICKS. Has ascites, hydrothorax, thrombocytopenia, esophageal varices and portal hypertension. Ascitic fluid sent for diagnostic tap did not show any SBP. continue with aldactone, lasix nadolol was held today due to hypotension (4) Obstructive sleep apnea Status: Chronic (5) GERD (gastroesophageal reflux disease) Status: Chronic Problem Text: pantoprazole and tums (6) HTN (hypertension) Status: Chronic (7) Depression Status: Chronic Problem Text: lexapro and trazodone continue (8) Pulmonary hypertension Status: Chronic (9) Iron deficiency anemia Status: Chronic (10) Hyperlipidemia Status: Chronic (11) Diabetes Status: Chronic Problem Text: will increase insulin dosage and place on carb consistent diet. (12) Phobia Status: Chronic Problem Text: To needles often has vasovagal syncope when undergoing any procedure like paracentesis /thoracocentesis and iv line insertion if has to be punctured multiple times. Sometimes also has problem with blood draws if they cannot get it at one shot. Plan/VTE VTE Prophylaxis Ordered?: Yes VS, I&O, 24H, Fishbone Vital Signs/I&O Vital Signs Date Time Temp Pulse Resp B/P Pulse Ox O2 Delivery O2 Flow Rate FiO2 10/25/16 11:05 60 105/59 10/25/16 06:10 15 10/25/16 06:00 97.3 94 Room Air 10/22/16 22:00 3.0 I&O- Last 24 Hours up to 6 AM 10/25/16 06:00 Intake Total 1630 ml Output Total 1650 ml Balance -20 ml Laboratory Data 24H LABS Laboratory Tests 2 10/24/16 16:33: Bedside Glucose (Misc Panel) 363H 10/24/16 20:03: Bedside Glucose (Misc Panel) 276H 10/25/16 06:23: Blood Urea Nitrogen 12, Creatinine 0.77, Sodium Level 145, Potassium Level 3.6, Chloride Level 104, Carbon Dioxide Level 36H, Calcium Level 8.4L, Aspartate Amino Transf (AST/SGOT) 25, Alanine Aminotransferase (ALT/SGPT) 20, Alkaline Phosphatase 289H, Total Bilirubin 0.4, Total Protein 6.5, Albumin 2.4L, Albumin/ Globulin Ratio 0.59L, Anion Gap 5L, White Blood Count 2.8L, Red Blood Count 3.60L, Hemoglobin 11.2L, Hematocrit 34.9L, Mean Corpuscular Volume 97.0H, Mean Corpuscular Hemoglobin 31.0, Mean Corpuscular Hemoglobin Concent 32.0, Red Cell Distribution Width 13.8, Platelet Count 108L, Neutrophils (%) (Auto) 63.4, Lymphocytes (%) (Auto) 25.5, Monocytes (%) (Auto) 5.9H, Eosinophils (%) (Auto) 2.2, Basophils (%) (Auto) 0.5, Neutrophils # (Auto) 1.8, Lymphocytes # (Auto) 0.7L, Monocytes # (Auto) 0.2, Eosinophils # (Auto) 0.1, Basophils # (Auto) 0.0, Glomerular Filtration Rate > 60.0, Large Unclassified Cells # 0.1, Large Unclassified Cells % 2.6, Magnesium Level 2.0 CBC/BMP Laboratory Tests 10/25/16 06:23 Calcium Level 8.4 L, Aspartate Amino Transf (AST/SGOT) 25, Alanine Aminotransferase (ALT/SGPT) 20, Alkaline Phosphatase 289 H, Total Bilirubin 0.4 , Total Protein 6.5, Albumin 2.4 L, Red Blood Count 3.60 L, Mean Corpuscular Volume 97.0 H, Mean Corpuscular Hemoglobin 31.0, Mean Corpuscular Hemoglobin Concent 32.0, Red Cell Distribution Width 13.8, Neutrophils (%) (Auto) 63.4, Lymphocytes (%) (Auto) 25.5, Monocytes (%) (Auto) 5.9 H, Eosinophils (%) (Auto) 2.2, Basophils (%) (Auto) 0.5, Neutrophils # (Auto) 1.8, Lymphocytes # (Auto) 0.7 L, Monocytes # (Auto) 0.2, Eosinophils # (Auto) 0.1, Basophils # (Auto) 0.0 Microbiology Microbiology 10/21/16 Fungal Smear, Received Pending 10/21/16 Fungal Culture, Received Pending 10/21/16 Anaerobic Culture - Final, Complete 10/21/16 Gram Stain - Final, Complete 10/21/16 Body Fluid Culture - Final, Complete 10/20/16 Urine Culture - Final, Complete 10/21/16 Acid Fast Stain, Received Pending 10/21/16 Mycobacterial Culture, Received Pending STEPHON BAEZA DO Oct 25, 2016 14:25
[2016-10-25] MEDS: **NOTE PATIENT COMMENT** MISC XX SCH (21:00)
[2016-10-25] MEDS: oxyCODONE 5MG TAB PO PRN (21:31)
[2016-10-25 22:00] VITALS: BP 111/59
[2016-10-26] MEDS: PERCOCET 5MG/325MG TAB PO PRN (01:16)
[2016-10-26 06:00] VITALS: BP 111/56
[2016-10-26 07:48] LABS: BASO % 0.3 % (0.0-1.0); EOS # 0.1 K/mm3 (0.0-0.50); EOS % 2.2 % (0.0-3.0); LARGE UNSTAINED CELL # 0.1 K/mm3 (0.0-0.4); LARGE UNSTAINED CELL % 2.1 % (0.0-4.0); LYMPH # 0.9 K/mm3 (1.5-4.5); LYMPH % 23.2 % (24.0-44.0); MEAN CORPUSCULAR HEMOGLOBIN 31.6 pg (27.0-33.0); MEAN CORPUSCULAR HGB CONC 32.9 g/dl (32.0-36.5); MEAN CORPUSCULAR VOLUME 96.1 fl (80.0-96.0); MONO # 0.2 K/mm3 (0.0-0.8); MONO % 6.5 % (0.0-5.0); NEUTROPHILS # 2.3 K/mm3 (1.8-7.7); NEUTROPHILS % 65.7 % (36.0-66.0); PLATELET COUNT, AUTOMATED 108 k/mm3 (150-450); WHITE BLOOD COUNT 3.4 K/mm3 (4.0-10.0)
[2016-10-26 08:28] LABS: ALBUMIN 2.5 GM/DL (3.2-5.2); ALBUMIN/GLOBULIN RATIO 0.63 (1.00-1.93); ALKALINE PHOSPHATASE 283 U/L (45-117); ALT/SGPT 20 U/L (12-78); ANION GAP 8 MEQ/L (8-16); AST/SGOT 19 U/L (15-37); BILIRUBIN,TOTAL 0.4 MG/DL (0.2-1.0); BLOOD UREA NITROGEN 14 MG/DL (7-18); CALCIUM LEVEL 8.4 MG/DL (8.8-10.2); CARBON DIOXIDE LEVEL 34 MEQ/L (21-32); CHLORIDE LEVEL 101 MEQ/L (98-107); CREATININE FOR GFR 0.79 MG/DL (0.55-1.02); GLOMERULAR FILTRATION RATE > 60.0 (>45); GLUCOSE, FASTING 152 MG/DL (80-110); MAGNESIUM LEVEL 2.1 MG/DL (1.8-2.4); POTASSIUM SERUM 3.9 MEQ/L (3.5-5.1); SODIUM LEVEL 143 MEQ/L (136-145); TOTAL PROTEIN 6.5 GM/DL (6.4-8.2)
[2016-10-26] MEDS: CALCIUM CARBONATE 500 MG CHEW U/D PO SCH ×3 (08:50→18:09)
[2016-10-26] MEDS: PANTOPRAZOLE 40MG TAB (PROTONIX) PO SCH (08:51)
[2016-10-26] MEDS: MECLIZINE 25 MG TABLET PO SCH ×2 (08:51→20:46)
[2016-10-26] MEDS: FERROUS SULFATE 325MG TAB PO SCH ×3 (08:51→20:44)
[2016-10-26] MEDS: FUROSEMIDE 40 MG TAB PO SCH ×2 (08:51→20:46)
[2016-10-26] MEDS: GABAPENTIN 100 MG CAP PO SCH ×2 (08:51→20:43)
[2016-10-26] MEDS: ESCITALOPRAM OXALATE 10 MG TAB (LEXAPRO) PO SCH (08:51)
[2016-10-26] MEDS: ASPIRIN 81 MG ENTERIC TAB PO SCH (08:51)
[2016-10-26] MEDS: SPIRONOLACTONE 50 MG TAB PO SCH ×2 (08:52→20:45)
[2016-10-26] MEDS: POTASSIUM CHLORIDE 10 MEQ SR TABLET PO SCH (08:52)
[2016-10-26] MEDS: NADOLOL 20MG TABLET PO SCH (08:52)
[2016-10-26] MEDS: LEVEMIR (INSULIN DETEMIR) 1 UNITS/0.01ML SC SCH ×2 (08:53→20:44)
[2016-10-26] MEDS: HumaLOG INSULIN (NovoLOG) PER UNIT SC SCH ×4 (08:54→20:45)
[2016-10-26] MEDS: LIDOCAINE 5% (LIDODERM) PATCH TD SCH (08:55)
[2016-10-26 14:00] VITALS: BP 128/60
[2016-10-26] MEDS: **NOTE PATIENT COMMENT** MISC XX SCH (20:45)
[2016-10-26 22:00] VITALS: BP 118/59
[2016-10-26] MEDS: oxyCODONE 5MG TAB PO PRN (22:31)
[2016-10-27 06:00] VITALS: BP 107/53
[2016-10-27 07:05] LABS: MEAN CORPUSCULAR VOLUME 95.5 fl (80.0-96.0); WHITE BLOOD COUNT 2.8 K/mm3 (4.0-10.0)
[2016-10-27 07:06] LABS: BASO % 0.4 % (0.0-1.0); EOS # 0.1 K/mm3 (0.0-0.50); EOS % 2.4 % (0.0-3.0); LARGE UNSTAINED CELL # 0.1 K/mm3 (0.0-0.4); LARGE UNSTAINED CELL % 1.8 % (0.0-4.0); LYMPH # 0.7 K/mm3 (1.5-4.5); LYMPH % 26.3 % (24.0-44.0); MEAN CORPUSCULAR HEMOGLOBIN 30.9 pg (27.0-33.0); MEAN CORPUSCULAR HGB CONC 32.4 g/dl (32.0-36.5); MONO # 0.2 K/mm3 (0.0-0.8); MONO % 7.3 % (0.0-5.0); NEUTROPHILS # 1.7 K/mm3 (1.8-7.7); NEUTROPHILS % 61.8 % (36.0-66.0); PLATELET COUNT, AUTOMATED 100 k/mm3 (150-450)
[2016-10-27 07:17] LABS: ALBUMIN 2.6 GM/DL (3.2-5.2); ALBUMIN/GLOBULIN RATIO 0.63 (1.00-1.93); ALKALINE PHOSPHATASE 282 U/L (45-117); ALT/SGPT 18 U/L (12-78); ANION GAP 7 MEQ/L (8-16); AST/SGOT 19 U/L (15-37); BILIRUBIN,TOTAL 0.5 MG/DL (0.2-1.0); BLOOD UREA NITROGEN 12 MG/DL (7-18); CALCIUM LEVEL 8.8 MG/DL (8.8-10.2); CARBON DIOXIDE LEVEL 32 MEQ/L (21-32); CHLORIDE LEVEL 102 MEQ/L (98-107); CREATININE FOR GFR 0.84 MG/DL (0.55-1.02); GLOMERULAR FILTRATION RATE > 60.0 (>45); GLUCOSE, FASTING 140 MG/DL (80-110); MAGNESIUM LEVEL 2.2 MG/DL (1.8-2.4); POTASSIUM SERUM 3.7 MEQ/L (3.5-5.1); SODIUM LEVEL 141 MEQ/L (136-145); TOTAL PROTEIN 6.7 GM/DL (6.4-8.2)
[2016-10-27] MEDS: MECLIZINE 25 MG TABLET PO SCH (09:12)
[2016-10-27] MEDS: FERROUS SULFATE 325MG TAB PO SCH (09:12)
[2016-10-27] MEDS: GABAPENTIN 100 MG CAP PO SCH (09:13)
[2016-10-27] MEDS: SPIRONOLACTONE 50 MG TAB PO SCH (09:13)
[2016-10-27] MEDS: CALCIUM CARBONATE 500 MG CHEW U/D PO SCH ×2 (09:13→13:24)
[2016-10-27] MEDS: PANTOPRAZOLE 40MG TAB (PROTONIX) PO SCH (09:13)
[2016-10-27] MEDS: POTASSIUM CHLORIDE 10 MEQ SR TABLET PO SCH (09:13)
[2016-10-27] MEDS: ESCITALOPRAM OXALATE 10 MG TAB (LEXAPRO) PO SCH (09:13)
[2016-10-27 09:14] VITALS: BP 110/60
[2016-10-27] MEDS: ASPIRIN 81 MG ENTERIC TAB PO SCH (09:14)
[2016-10-27] MEDS: FUROSEMIDE 40 MG TAB PO SCH (09:14)
[2016-10-27] MEDS: NADOLOL 20MG TABLET PO SCH (09:14)
[2016-10-27] MEDS: LEVEMIR (INSULIN DETEMIR) 1 UNITS/0.01ML SC SCH (09:15)
[2016-10-27] MEDS: HumaLOG INSULIN (NovoLOG) PER UNIT SC SCH ×2 (09:15→13:24)
[2016-10-27] MEDS: LIDOCAINE 5% (LIDODERM) PATCH TD SCH (09:16)
[2016-10-27] MEDS ORDERED: GABA-279 PO (10:16)
[2016-10-27] MEDS ORDERED: LIDO5TD TD (10:16)
--- NOTE | 2016-10-27 13:59 | IPNPDOC ---
Subjective Date Seen The patient was seen on 10/26/16. Subjective Chief Complaint/HPI The patient is a 61-year-old female admitted with a reason for visit of Pleural Effusion,Ascites. Constitutional: Denies: Chills, Fever, Night Sweats Cardiovascular: Reports: Chest Pain Objective Physical Examination General Exam: Positive: Alert, No Acute Distress Eye Exam: Positive: Conjunctiva & lids normal, EOMI, PERRLA, Negative: Sclera icteric ENT Exam: Positive: Atraumatic, Mucous membr. moist/pink, Pharynx Normal Neck Exam: Positive: Supple, Negative: JVD, thyromegaly Chest Exam: Positive: Clear to auscultation, Normal air movement Heart Exam: Positive: Normal S1, Normal S2, Rate Normal, Regular Rhythm, Negative: Murmurs, Rubs Telemetry: Positive: No significant arrhythmia Abdomen Exam: Positive: Normal bowel sounds, Soft, Negative: Hepatospenomegaly, Tenderness Extremity Exam: Positive: Normal pulses, Negative: Clubbing, Cyanosis, Edema Skin Exam: Positive: Nl turgor and temperature, Negative: Breakdown, Rash Assessment /Plan Problems (1) Pleurodynia Status: Chronic Problem Text: pain is controlled will continue with oxycodone will give some lidoderm patch, gabapentin will need to followup with pain clinic after discharge (2) Pleural effusion associated with hepatic disorder Status: Chronic Problem Text: * 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 * patient has recurrent pleural effusion since January 2016 for that had recurrent thoracocentesis followed by chest tube placement which was complicated by becoming infected so was removed .Then the effusion became loculated. In August this year patient again had thoracocentesis followed by talc pleurodesis . Since then has chronic chest pain * Dr Parker saw pt, he will see pt in follow up outpt (3) Liver cirrhosis Status: Chronic Problem Text: Decompensated cirrhosis due to HICKS. Has ascites, hydrothorax, thrombocytopenia, esophageal varices and portal hypertension. Ascitic fluid sent for diagnostic tap did not show any SBP. continue with aldactone, lasix nadolol was held today due to hypotension (4) Obstructive sleep apnea Status: Chronic (5) GERD (gastroesophageal reflux disease) Status: Chronic Problem Text: pantoprazole and tums (6) HTN (hypertension) Status: Chronic (7) Depression Status: Chronic Problem Text: lexapro and trazodone continue (8) Pulmonary hypertension Status: Chronic (9) Iron deficiency anemia Status: Chronic (10) Hyperlipidemia Status: Chronic (11) Diabetes Status: Chronic Problem Text: will increase insulin dosage and place on carb consistent diet. (12) Phobia Status: Chronic Problem Text: To needles often has vasovagal syncope when undergoing any procedure like paracentesis /thoracocentesis and iv line insertion if has to be punctured multiple times. Sometimes also has problem with blood draws if they cannot get it at one shot. Plan/VTE VTE Prophylaxis Ordered?: Yes VS, I&O, 24H, Fishbone Vital Signs/I&O Vital Signs Date Time Temp Pulse Resp B/P Pulse Ox O2 Delivery O2 Flow Rate FiO2 10/26/16 14:00 96.5 60 17 128/60 100 Room Air 10/22/16 22:00 3.0 I&O- Last 24 Hours up to 6 AM 10/26/16 06:00 Intake Total 1440 ml Output Total 2750 ml Balance -1310 ml Laboratory Data 24H LABS Laboratory Tests 2 10/25/16 20:54: Bedside Glucose (Misc Panel) 301H 10/26/16 06:58: Blood Urea Nitrogen 14, Creatinine 0.79, Sodium Level 143, Potassium Level 3.9, Chloride Level 101, Carbon Dioxide Level 34H, Calcium Level 8.4L, Aspartate Amino Transf (AST/SGOT) 19, Alanine Aminotransferase (ALT/SGPT) 20, Alkaline Phosphatase 283H, Total Bilirubin 0.4, Total Protein 6.5, Albumin 2.5L, Albumin/ Globulin Ratio 0.63L, Anion Gap 8, White Blood Count 3.4L, Red Blood Count 3.60L , Hemoglobin 11.4L, Hematocrit 34.6L, Mean Corpuscular Volume 96.1H, Mean Corpuscular Hemoglobin 31.6, Mean Corpuscular Hemoglobin Concent 32.9, Red Cell Distribution Width 14.0, Platelet Count 108L, Neutrophils (%) (Auto) 65.7, Lymphocytes (%) (Auto) 23.2L, Monocytes (%) (Auto) 6.5H, Eosinophils (%) (Auto) 2.2, Basophils (%) (Auto) 0.3, Neutrophils # (Auto) 2.3, Lymphocytes # (Auto) 0.9L, Monocytes # (Auto) 0.2, Eosinophils # (Auto) 0.1, Basophils # (Auto) 0.0, Glomerular Filtration Rate > 60.0, Large Unclassified Cells # 0.1, Large Unclassified Cells % 2.1, Magnesium Level 2.1 10/26/16 11:17: Bedside Glucose (Misc Panel) 233H 10/26/16 16:52: Bedside Glucose (Misc Panel) 302H CBC/BMP Laboratory Tests 10/26/16 06:58 Calcium Level 8.4 L, Aspartate Amino Transf (AST/SGOT) 19, Alanine Aminotransferase (ALT/SGPT) 20, Alkaline Phosphatase 283 H, Total Bilirubin 0.4 , Total Protein 6.5, Albumin 2.5 L, Red Blood Count 3.60 L, Mean Corpuscular Volume 96.1 H, Mean Corpuscular Hemoglobin 31.6, Mean Corpuscular Hemoglobin Concent 32.9, Red Cell Distribution Width 14.0, Neutrophils (%) (Auto) 65.7, Lymphocytes (%) (Auto) 23.2 L, Monocytes (%) (Auto) 6.5 H, Eosinophils (%) (Auto ) 2.2, Basophils (%) (Auto) 0.3, Neutrophils # (Auto) 2.3, Lymphocytes # (Auto) 0.9 L, Monocytes # (Auto) 0.2, Eosinophils # (Auto) 0.1, Basophils # (Auto) 0.0 Microbiology Microbiology 10/21/16 Fungal Smear - Final, Resulted 10/21/16 Fungal Culture, Resulted Pending 10/21/16 Anaerobic Culture - Final, Complete 10/21/16 Gram Stain - Final, Complete 10/21/16 Body Fluid Culture - Final, Complete 10/20/16 Urine Culture - Final, Complete 10/21/16 Acid Fast Stain - Final, Resulted 10/21/16 Mycobacterial Culture, Resulted Pending STEPHON BAEZA DO Oct 26, 2016 20:18
== END 2016-10-27 13:50 | disposition home health service (06) | DRG 433 ==
LOC: M ED 15:39 → M ED INP 10-21 01:06 → M PCU 10-21 03:53 → M MSPAV 10-23 16:12
PROVIDERS: ADMIT Hospitalist; ATTEND Internal Medicine
PROC: 0W9G3ZX Drainage of Peritoneal Cavity, Percutaneous Approach, Diagnostic (ICD-10-PCS; principal; 2016-10-21)
DX: K74.69 Other cirrhosis of liver (principal); I85.10 Secondary esophageal varices without bleeding; J90 Pleural effusion, not elsewhere classified; R18.8 Other ascites; F41.9 Anxiety disorder, unspecified; E11.9 Type 2 diabetes mellitus without complications; K21.9 Gastro-esophageal reflux disease without esophagitis; D50.9 Iron deficiency anemia, unspecified; E78.5 Hyperlipidemia, unspecified; F40.298 Other specified phobia; I27.2 Other secondary pulmonary hypertension; R07.81 Pleurodynia; I10 Essential (primary) hypertension; F32.9 Major depressive disorder, single episode, unspecified; G47.33 Obstructive sleep apnea (adult) (pediatric); G43.909 Migraine, unspecified, not intractable, without status migrainosus; R42 Dizziness and giddiness; Z88.6 Allergy status to analgesic agent; Z88.8 Allergy status to other drugs, medicaments and biological substances; Z91.048 Other nonmedicinal substance allergy status; K76.0 Fatty (change of) liver, not elsewhere classified

== ENCOUNTER → 2016-10-20 | Outpatient (CLI) | payer OTHER ==
[~2016-10-20] MED LIST changes: +ASPI81TAEC PO; +OXYC1SOL PO
--- NOTE | 2016-10-20 14:27 | REP ---
TWO-VIEW CHEST: Two views of the chest are performed. COMPARISON: 10/16/2016 Loculated right pleural fluid has decreased. However, there is still a moderate degree of diffuse right-sided pleural thickening and fluid. Streaky opacities in the right upper lung zone and patchy opacities in the right lung base are unchanged. Heart size is not well evaluated due to obscuration of the right heart border. Left lung remains clear. Mediastinal silhouette is grossly unchanged. IMPRESSION: Decreased amount of loculated right pleural fluid. Otherwise, similar findings compared to the prior exam of 10/16/2016. Signed by Avelino Cardoza MD 10/20/2016 04:44 P
== END ==
LOC: M SMT 12:51
PROVIDERS: ATTEND Thoracic Surgery (Cardiothoracic Vascular Surgery)
DX: R18.8 Other ascites (principal); J91.8 Pleural effusion in other conditions classified elsewhere; K74.60 Unspecified cirrhosis of liver

== ENCOUNTER 2016-12-08 12:41 | Inpatient (IN) | payer OTHER ==
[~2016-12-08] VITALS: Ht 162.6 cm; Wt 109.7 kg
[2016-12-08] MEDS: ASPIRIN 81 MG ENTERIC TAB PO SCH (09:00)
[2016-12-08] MEDS: ESCITALOPRAM OXALATE 10 MG TAB (LEXAPRO) PO SCH (09:00)
[2016-12-08] MEDS: NADOLOL 20MG TABLET PO SCH (09:00)
[2016-12-08] MEDS: PANTOPRAZOLE 40MG TAB (PROTONIX) PO SCH (09:00)
[~2016-12-08 12:41] MED LIST changes: -BENA25CA4 PO; -CALC1TAB42 PO; -GABA-279; -NEUR100C PO; -SPIR50TA2 PO
[2016-12-08] MEDS ORDERED: GABA-279 (13:38)
[2016-12-08] MEDS ORDERED: IPRATROPIUM 0.5MG/ALBUTEROL 2.5MG INH SOL UD 3ML (DUONEB)(J7620) NEB SCH (14:15)
[2016-12-08] MEDS ORDERED: LevoFLOXacin IV 750 MG in APPROPRIATE DILUENT 1 EA IV ONE (14:15)
[2016-12-08] MEDS ORDERED: TUSSICAPS ER 10/8MG CAPSULE PO ONE (14:30)
[2016-12-08 14:40] LABS: ABG BASE EXCESS 2.3 (-2.0-2.0); ABG PARTIAL PRESSURE CO2 32.8 mmHg (35.0-45.0); ABG PARTIAL PRESSURE O2 77.1 mmHg (75.0-100.0); ABG STANDARD HCO3 26.5 MEQ/L (22.0-26.0)
[2016-12-08] MEDS ORDERED: AMIT25TA PO (14:45)
[2016-12-08] MEDS ORDERED: CALC1TAB42 PO (14:45)
[2016-12-08] MEDS ORDERED: FURO20TA2 PO (14:47)
[2016-12-08] MEDS ORDERED: NEUR100C PO (14:47)
[2016-12-08] MEDS ORDERED: SPIR50TA2 PO (14:48)
[2016-12-08] MEDS ORDERED: BENA25CA4 PO (14:50)
[2016-12-08] MEDS ORDERED: OXYC-517 PO (14:50)
[2016-12-08 15:09] LABS: ALBUMIN 2.4 GM/DL (3.2-5.2); ALBUMIN/GLOBULIN RATIO 0.67 (1.00-1.93); ALKALINE PHOSPHATASE 267 U/L (45-117); ALT/SGPT 23 U/L (12-78); ANION GAP 11 MEQ/L (8-16); AST/SGOT 15 U/L (15-37); BILIRUBIN,TOTAL 1.8 MG/DL (0.2-1.0); BLOOD UREA NITROGEN 27 MG/DL (7-18); CARBON DIOXIDE LEVEL 26 MEQ/L (21-32); CHLORIDE LEVEL 101 MEQ/L (98-107); CREATININE FOR GFR 1.07 MG/DL (0.55-1.02); GLOMERULAR FILTRATION RATE 55.3 (>45); GLUCOSE, FASTING 222 MG/DL (80-110); MEAN CORPUSCULAR HEMOGLOBIN 33.1 pg (27.0-33.0); MEAN CORPUSCULAR VOLUME 94.7 fl (80.0-96.0); POTASSIUM SERUM 3.5 MEQ/L (3.5-5.1); SODIUM LEVEL 138 MEQ/L (136-145); WHITE BLOOD COUNT 5.8 K/mm3 (4.0-10.0)
[2016-12-08 15:11] LABS: BASO # 0.2 K/mm3 (0.0-0.2); BASO % 0.2 % (0.0-1.0); EOS # 1.2 K/mm3 (0.0-0.50); EOS % 1.2 % (0.0-3.0); LYMPH # 0.7 K/mm3 (1.5-4.5); LYMPH % 12.5 % (24.0-44.0); MONO # 6.9 K/mm3 (0.0-0.8); MONO % 6.9 % (0.0-5.0); NEUTROPHILS # 4.4 K/mm3 (1.8-7.7); NEUTROPHILS % 77.1 % (36.0-66.0); PLATELET COUNT, AUTOMATED 79 k/mm3 (150-450)
[2016-12-08 15:12] LABS: DIFF SLIDE NUMBER 266
[2016-12-08] MEDS ORDERED: NS 1,000 ML IV ONE (16:39)
[2016-12-08] MEDS ORDERED: GLUCOSE 4 GM CHEW TABLET PO PRN (16:45)
[2016-12-08] MEDS ORDERED: IPRATROPIUM 0.5MG/ALBUTEROL 2.5MG INH SOL UD 3ML (DUONEB)(J7620) NEB PRN (16:45)
[2016-12-08] MEDS ORDERED: ACETAMINOPHEN TAB 650MG DOSE (2X325MG) PO PRN (16:45)
[2016-12-08] MEDS ORDERED: GLUCAGON FOR INJ 1 MG VIAL (J1610) SC PRN (16:45)
[2016-12-08] MEDS ORDERED: DEXTROSE 50% 50 ML SYRINGE IV PRN (16:45)
[2016-12-08 16:48] VITALS: BP 111/61
[2016-12-08] MEDS ORDERED: diphenhydrAMINE 25 MG CAP PO PRN (17:00)
--- NOTE | 2016-12-08 17:27 | HPEPDOC ---
General Date of Admission Dec 08, 2016 at 16:39 Chief Complaint The patient is a 61-year-old female Presented to the ER at the direction of her cardiothoracic surgeon because of a possible pneumonia on imaging. History of Present Illness Patient is a 61 year old female with a PMHx of IDDM2, HTN, DLP, Chronic pleural effusions (s/p chest tube, s/p pigtail catheter, s/p pleurodysis ), Cirrhosis (2/2 HICKS), Portal HTN, Esophageal varicies, Migraine headaches, Chronic vertigo, Anxiety, Depression, Obesity, Anemia, Leukopenia, Thrombocytopenia, Hx of C. diff and GERD. Patient reported that she had a non-productive cough for 1 week duration that has been worsening. She notes that she has baseline shortness of breath and may be slightly worse. She reports a fever today at Dr. Valladares office of 100.0, and chills since this weekend. She reports pleuritic chest pain that is worse with deep breaths and cough. She does not use any oxygen at home. She denies any PND, orthopnea or leg swelling. She has had a recent admission 1-2 weeks ago after she had fallen. She denies any nausea, vomiting, abdominal pain, constipation, diarrhea or dysuria. Home Medications Scheduled (Calcium 500 +D3 500-600 mg-Unit) 1 Tab Tab, 1 TAB PO DAILY, (Reported) Amitriptyline HCl (Amitriptyline HCl) 25 Mg Tab, 25 MG PO QHS, (Reported) Aspirin (Aspirin EC) 81 Mg Tabec, 81 MG PO DAILY, (Reported) Escitalopram Oxalate (Lexapro) 20 Mg Tab, 20 MG PO DAILY, (Reported) Esomeprazole Magnesium Trihydr (Nexium) 40 Mg Cap, 40 MG PO DAILY, (Reported) Ferrous Sulfate (Ferrous Sulfate) 325 Mg Tab, 325 MG PO TID, (Reported) Furosemide (Furosemide) 20 Mg Tab, 60 MG PO BID, (Reported) Gabapentin (Neurontin) 100 Mg Cap, 100 MG PO BID, (Reported) Insulin Aspart (Novolog) 100 U/Ml Inj, 1 DOSE SC ACHS, (Reported) PER SLIDING SCALE Insulin Glargine (Lantus) 1 Units/0.01 Ml Susp, 66 UNITS SC BID, (Reported) Meclizine HCl (Meclizine HCl) 25 Mg Tab, 25 MG PO BID, (Reported) Nadolol (Nadolol) 40 Mg Tab, 40 MG PO DAILY, (Reported) Spironolactone (Spironolactone) 50 Mg Tab, 50 MG PO BID, (Reported) Scheduled PRN Diphenhydramine HCl (Benadryl Allergy) 25 Mg Cap, 25 MG PO QHS PRN for ITCHING/ SWELLING, (Reported) Oxycodone HCl (Oxycodone HCl) 5 Mg Tab, 5 MG PO Q6H PRN for PAIN, (Reported) Trazodone HCl (Trazodone HCl) 50 Mg Tab, 50 MG PO QHS PRN for SLEEP, (Reported) Allergies Coded Allergies: TAPE (Verified Allergy, Mild, 10/20/16) Acetaminophen (Unverified Adverse Reaction, Intermediate, LIVER PROBLEM, ) Candesartan (Unverified Adverse Reaction, Intermediate, CHEST PAIN, ) Hydrochlorothiazide (Unverified Adverse Reaction, Intermediate, CHEST PAIN , 11/22/16) Ibuprofen (Unverified Adverse Reaction, Intermediate, LIVER PROBLEM, ) Past Medical History Medical History IDDM2, HTN, DLP, Chronic pleural effusions (s/p chest tube, s/p pigtail catheter , s/p pleurodysis), Cirrhosis (2/2 HICKS), Portal HTN, Esophageal varicies, Migraine headaches, Chronic vertigo, Anxiety, Depression, Obesity, Anemia, Leukopenia, Thrombocytopenia, Hx of C. diff and GERD. 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 Review of Symptoms Other systems Constitutional: Reports weight gain, No change in appetite, or recent trauma Eyes: No visual changes or eye pain Ears, Nose, Throat: Denies nose bleeds, or difficulty swallowing Cardiovascular: Positive chest pain - pleuritic, No sweating, or orthopnea Respiratory: Positive cough and shortness of breath, No wheezing GI: Francisco nausea, vomiting, abdominal pain, diarrhea or constipation : Denies pain with urination or frequency Musculoskeletal: Denies joint pain or swelling Neuro / Psych: Denies muscle weakness or sensory loss Skin: No skin rashes noted All other review of systems negative; otherwise stated in history of present illness Screening: - Colonoscopy / EGD done 5-10 years ago with polyps reported - Pap smear no longer done - Mammogram done 1 year prior and reported normal Vital Signs - Vitals: BP 111/61, HR 71, RR 18, Sat 93%RA, Temp 99.1F - General: Lying in bed, No acute distress, Speaking in full sentences, AAOx3 - HEENT: NC, AT, PERRLA, EOMI - CVS: RRR, +S1S2, - Lungs: Fair air entry bilaterally, No appreciable crackles / rhonchi / wheezing - Abdomen: Soft, Non-distended, Non-tender, + Bowel sounds x 4 - Extremities: + PPx4, No lower extremity edema, No calf tenderness - Neuro: No focal motor or sensory deficit - Skin: No visible rashes Laboratory Data Labs 24H Laboratory Tests 2 12/08/16 14:27: Blood Gas Bicarbonate Standard 26.5H, Arterial Blood pH 7.500H, Arterial Blood Partial Pressure CO2 32.8L, Arterial Blood Partial Pressure O2 77.1, Arterial Blood Total CO2 26.0, Arterial Blood HCO3 25.0, Arterial Blood Base Excess 2.3H , Arterial Blood Oxygen Saturation 95.9 12/08/16 14:28: Lactic Acid Level 1.5 12/08/16 14:37: White Blood Count 5.8, Red Blood Count 3.73L, Hemoglobin 12.4, Hematocrit 35.3L , Mean Corpuscular Volume 94.7, Mean Corpuscular Hemoglobin 33.1H, Mean Corpuscular Hemoglobin Concent 35.0, Red Cell Distribution Width 14.0, Platelet Count 79L, Neutrophils (%) (Auto) 77.1H, Lymphocytes (%) (Auto) 12.5L, Monocytes (%) (Auto) 6.9H, Eosinophils (%) (Auto) 1.2, Basophils (%) (Auto) 0.2 , Neutrophils # (Auto) 4.4, Lymphocytes # (Auto) 0.7L, Monocytes # (Auto) 6.9H, Eosinophils # (Auto) 1.2H, Basophils # (Auto) 0.2, Large Unclassified Cells % 2.0, Large Unclassified Cells # 2.0H, Anion Gap 11, Glomerular Filtration Rate 55.3, Calcium Level 8.0L, Aspartate Amino Transf (AST/SGOT) 15, Alanine Aminotransferase (ALT/SGPT) 23, Alkaline Phosphatase 267H, Total Bilirubin 1.8H , Direct Bilirubin 1.0H, Total Creatine Kinase 28, Creatine Kinase MB 1.0, Creatine Kinase MB Relative Index 3.57, Troponin I < 0.02, Total Protein 6.0L, Albumin 2.4L, Albumin/Globulin Ratio 0.67L CBC/BMP Laboratory Tests 12/08/16 14:37 Red Blood Count 3.73 L, Mean Corpuscular Volume 94.7, Mean Corpuscular Hemoglobin 33.1 H, Mean Corpuscular Hemoglobin Concent 35.0, Red Cell Distribution Width 14.0, Neutrophils (%) (Auto) 77.1 H, Lymphocytes (%) (Auto) 12.5 L, Monocytes (%) (Auto) 6.9 H, Eosinophils (%) (Auto) 1.2, Basophils (%) ( Auto) 0.2, Neutrophils # (Auto) 4.4, Lymphocytes # (Auto) 0.7 L, Monocytes # ( Auto) 6.9 H, Eosinophils # (Auto) 1.2 H, Basophils # (Auto) 0.2 Microbiology Microbiology 12/08/16 Blood Culture, Received Pending 12/08/16 Blood Culture, Received Pending Plan / VTE VTE Prophylaxis Ordered?: Yes Plan Plan Shortness of breath and cough likely 2/2 healthcare associated pneumonia - Presented with cough and worsening shortness of breath - Physical un-revealing - CXR reveals new R atelectasis / infiltrate, worsening effusion - Will check blood cultures, sputum cultures, respiratory panel, lactic acid - s/p Levaquin in the ER - Will start Meropenem and Vancomycin (re: HCAP coverage) Chronic pleural effusion on right - Reported to be secondary to cirrhosis - history of chest tube, pigtail catheter and pleurodesis - Saturating well on room air - Imaging reveals that this is worsened compared to prior - Will hold off on consulting Dr. Parker Thrombocytopenia - Chronic - Stable compared to priro Elevated bilirubin - Possibly 2/2 cirrhosis, possibly 2/2 gall stones - no abdominal pain or nausea / vomiting - Will get US abdomen Elevated creatinine - Will check urine electrolytes - Will start IV fluid hydration (gentle) IDDM2 - c/w home insulin regimen HTN DLP Cirrhosis (2/2 HICKS) - Portal HTN, and esophageal varicies history - Will hold furosemide today - c/w nadolol Migraine headaches Chronic vertigo - c/w meclizine Anxiety and Depression - c/w amitriptyline, trazodone and escitalopram Obesity Anemia Hx of C. diff GERD - c/w PPI DVT prophylaxis - Will start SCDs NAIDA PARKS MD Dec 08, 2016 17:27
[2016-12-08] MEDS: HumaLOG INSULIN (NovoLOG) PER UNIT SC SCH ×2 (17:30→21:00)
[2016-12-08] MEDS ORDERED: MEROPENEM INJ 1 GM in D5W MINI-BAG PLUS 100 ML IV SCH (18:00)
[2016-12-08] MEDS: oxyCODONE 5MG TAB PO PRN (18:13)
[2016-12-08] MEDS: VANCOMYCIN HCL 1,000 MG, VIAL MATE ADAPTER 1 EACH in D5W 250 ML IV SCH (19:40)
[2016-12-08] MEDS: IPRATROPIUM 0.5MG/ALBUTEROL 2.5MG INH SOL UD 3ML (DUONEB)(J7620) NEB SCH (20:00)
[2016-12-08] MEDS ORDERED: VANCOMYCIN HCL 500 MG in D5W MINI-BAG PLUS 100 ML IV ONE (20:00)
[2016-12-08 21:20] VITALS: BP 112/60
[2016-12-08] MEDS: GABAPENTIN 100 MG CAP PO SCH (22:12)
[2016-12-08] MEDS: traZODone 50 MG TAB PO PRN (22:12)
[2016-12-08] MEDS: MECLIZINE 25 MG TABLET PO SCH (22:12)
[2016-12-08] MEDS: AMITRIPTYLINE 25 MG TAB PO SCH (22:13)
[2016-12-08] MEDS: MEROPENEM INJ 1 GM in D5W MINI-BAG PLUS 100 ML IV SCH (22:25)
[2016-12-08] MEDS: LEVEMIR (INSULIN DETEMIR) 1 UNITS/0.01ML SC SCH (22:27)
--- NOTE | 2016-12-08 23:17 | PHACANCOPD ---
PHARMACY VANCOMYCIN DOSING Pt Demographics Demographics Patient Age:61 , Weight:107.000 , Gender: female Adjusted Body Weight Date: 12/08/16, Adjusted Body Weight: [75.639] Kg Events Past 24 Hours Events Past 24 Hours: YES: Pending Diagnostics, Other (12/08/16 CXR revealed right atelectasis/infiltrate) Vancomycin Vancomycin indication: HCAP Vancomycin Target Ranges: 15-20 mcg/ml Vancomycin Load Y/N: Yes Load Dose Date Time Vancomycin Load Dose: 1500mg Date: 12/08/16 Time: 1900 Vancomycin Dose Date: 12/08/16. Current Vancomycin Dose: [1g IV Q12H] Intermittent Dosing?: No Labs Labs Item Value Date Time White Blood Count 5.8 K/mm3 12/08/16 1437 Blood Urea Nitrogen 27 MG/DL H 12/08/16 1437 Creatinine 1.07 MG/DL H 12/08/16 1437 Lactic Acid Level 1.5 MMOL/L 12/08/16 1428 Micro Microbiology 12/08/16 Blood Culture, Received Pending 12/08/16 Blood Culture, Received Pending Creatinine Clearance Date:12/08/16. Estimated Creatinine Clearance: [~59.9ml/min]. Pending Labs Vancomycin trough scheduled 12/10/16 @ 1800, prior to the 5th dose Assessment and Plan Maintaining Current Dose?: Yes Reason for dose change: No Dose Change Pharmacist Note Pharmacist Note Date: 12/08/16. Pharmacist note: Day #1 empiric meropenem/vancomycin initiated with a 1500mg loading dose @1900, followed by a maintenance regimen of 1g IV Q12H starting tomorrow at 0700 for the treatment of HCAP - aiming for a goal trough of 15-20mcg/ml. WBC is WNL, pt is mildly febrile, and lactic acid is WNL. Baseline scr ~ <1. Scr is currently 1.07. 12/08/16 CXR revealed right atelectasis/infiltrate. Blood cultures are currently pending. A vancomycin trough has been scheduled 12/10/16 @1800 prior to the 5th dose. We will continue to monitor and make adjustments as needed. [facility] Dec 08, 2016 23:17
[2016-12-09] VITALS (9 sets, daily range): BP systolic 93–133; BP diastolic 50–64
[2016-12-09] MEDS: FERROUS SULFATE 325MG TAB PO SCH ×4 (00:12→20:54)
[2016-12-09] MEDS: oxyCODONE 5MG TAB PO PRN ×3 (00:27→21:48)
[2016-12-09] MEDS: IPRATROPIUM 0.5MG/ALBUTEROL 2.5MG INH SOL UD 3ML (DUONEB)(J7620) NEB SCH ×4 (00:57→21:17)
[2016-12-09] MEDS: MEROPENEM INJ 1 GM in D5W MINI-BAG PLUS 100 ML IV SCH ×3 (05:20→20:55)
[2016-12-09] MEDS: VANCOMYCIN HCL 1,000 MG, VIAL MATE ADAPTER 1 EACH in D5W 250 ML IV SCH ×2 (06:17→18:20)
--- NOTE | 2016-12-09 07:00 | REP ---
RIGHT UPPER QUADRANT ULTRASOUND: Real-time sonographic evaluation of the right upper quadrant performed. Multiple gallstones are seen in the gallbladder. There is gallbladder wall thickening up to 5 mm. There is no free fluid. There is no intrahepatic or extrahepatic biliary dilatation, common bile duct measuring 4 mm in diameter. Visualization of the liver and pancreas is limited due to body habitus and bowel gas but no gross abnormality is seen of these structures. The right kidney demonstrates no hydronephrosis or nephrolithiasis with normal size at 11 cm in length. IMPRESSION: Multiple small gallstones in the gallbladder. Diffuse gallbladder wall thickening. No biliary dilatation or free fluid. Signed by Avelino Cardoza MD 12/09/2016 04:33 P
[2016-12-09 07:14] LABS: BASO % 0.2 % (0.0-1.0); EOS # 0.1 K/mm3 (0.0-0.50); EOS % 1.9 % (0.0-3.0); LARGE UNSTAINED CELL # 0.1 K/mm3 (0.0-0.4); LARGE UNSTAINED CELL % 2.2 % (0.0-4.0); LYMPH # 0.6 K/mm3 (1.5-4.5); LYMPH % 15.8 % (24.0-44.0); MEAN CORPUSCULAR HEMOGLOBIN 32.4 pg (27.0-33.0); MEAN CORPUSCULAR HGB CONC 33.9 g/dl (32.0-36.5); MEAN CORPUSCULAR VOLUME 95.7 fl (80.0-96.0); MONO # 0.3 K/mm3 (0.0-0.8); MONO % 7.7 % (0.0-5.0); NEUTROPHILS # 2.6 K/mm3 (1.8-7.7); NEUTROPHILS % 72.3 % (36.0-66.0); RED CELL DISTRIBUTION WIDTH 13.9 % (11.5-14.5); WHITE BLOOD COUNT 3.6 K/mm3 (4.0-10.0)
[2016-12-09 07:15] LABS: PLATELET COUNT, AUTOMATED 63 k/mm3 (150-450)
[2016-12-09 07:33] LABS: ALBUMIN 1.9 GM/DL (3.2-5.2); ALKALINE PHOSPHATASE 234 U/L (45-117); ALT/SGPT 21 U/L (12-78); ANION GAP 7 MEQ/L (8-16); AST/SGOT 12 U/L (15-37); BILIRUBIN,TOTAL 1.7 MG/DL (0.2-1.0); BLOOD UREA NITROGEN 17 MG/DL (7-18); CALCIUM LEVEL 7.6 MG/DL (8.8-10.2); CARBON DIOXIDE LEVEL 27 MEQ/L (21-32); CHLORIDE LEVEL 102 MEQ/L (98-107); CREATININE FOR GFR 0.79 MG/DL (0.55-1.02); GLOMERULAR FILTRATION RATE > 60.0 (>45); GLUCOSE, FASTING 203 MG/DL (80-110); MAGNESIUM LEVEL 1.7 MG/DL (1.8-2.4); POTASSIUM SERUM 3.1 MEQ/L (3.5-5.1); SODIUM LEVEL 136 MEQ/L (136-145); TOTAL PROTEIN 5.7 GM/DL (6.4-8.2)
[2016-12-09] MEDS: NADOLOL 20MG TABLET PO SCH (09:00)
[2016-12-09] MEDS ORDERED: POTASSIUM CHLORIDE 10 MEQ SR TABLET PO ONE (09:00)
[2016-12-09] MEDS: LEVEMIR (INSULIN DETEMIR) 1 UNITS/0.01ML SC SCH ×2 (10:16→20:55)
[2016-12-09] MEDS: PANTOPRAZOLE 40MG TAB (PROTONIX) PO SCH (10:17)
[2016-12-09] MEDS: ESCITALOPRAM OXALATE 10 MG TAB (LEXAPRO) PO SCH (10:17)
[2016-12-09] MEDS: ASPIRIN 81 MG ENTERIC TAB PO SCH (10:18)
[2016-12-09] MEDS: MECLIZINE 25 MG TABLET PO SCH ×2 (10:18→20:54)
[2016-12-09] MEDS: GABAPENTIN 100 MG CAP PO SCH ×2 (10:18→20:54)
[2016-12-09] MEDS: HumaLOG INSULIN (NovoLOG) PER UNIT SC SCH ×4 (10:20→20:55)
[2016-12-09] MEDS: MAG SULF 1GM/100ML (MAG RUN) 1 GM in APPROPRIATE DILUENT 1 EA IV SCH ×2 (10:21→10:22)
--- NOTE | 2016-12-09 15:03 | REP ---
REASON: Evaluate for pleural fluid. The patient has had [address] examinations of the chest at various institutions [facility]. Overall, this patient has had 54 CT scans, which includes today. This is a large radiation load on the patient. The lack of intravenous contrast decreases the sensitivity of the exam. There is mediastinal and right hilar lymphadenopathy difficult to evaluate without intravenous contrast. This appears essentially unchanged but possibly with increased right hilar adenopathy compared with the latest prior of 11/22/2016. Other priors as far back as 2002 were reviewed as necessary. There is a large right-sided pleural effusion, a portion of which is loculated. This has increased slightly along the lateral and superior aspects of the right hemithorax. The amount of loculated fluid in the right lower lobe also appears to have increased from the prior exam. There is no pericardial effusion. There is no significant change in the appearance of the imaged upper abdomen. There is ascites and there is cholelithiasis. There is a micronodular surface to the liver possibly indicating cirrhotic change. There is splenomegaly. There are other changes in the upper abdomen, which are also stable from the latest prior. Bone window technique throughout the exam shows no change in the appearance of the osseous structures. Evaluation of the lung sweet shows scattered asymmetric and patchy right lung opacities with increased suspected compressive subsegmental atelectatic changes from the right effusion. There is a conglomerate density within the right major fissure, which is unchanged. This most likely represents a combination of fluid and subsegmental atelectatic change abutting the right major fissure. Increased curvilinear densities are seen in the right upper lobe likely subsegmental atelectatic changes. Chronic stable left lung field changes are noted status quo. There is a large asymmetric right apical density which is essentially unchanged, possibly slightly larger compared to the latest prior and also suspicious for heavy chronic and subsegmental atelectatic change. IMPRESSION: 1. Increasing right pleural effusion as described above. 2. Abnormal lung field findings as described above. Certainly, I cannot rule out the possibility of acute infectious etiology superimposed upon chronic change. 3. Upper abdomen findings as described above. The micronodular surface to the liver and the concomitant splenomegaly might be secondary to cirrhosis. I have no history on the patient. 4. Other findings as described above. Signed by Den uS DO 12/09/2016 03:09 P
[2016-12-09] MEDS: LACTOBACILLUS ACIDOPHILUS CAP (BACID) PO SCH (18:54)
--- NOTE | 2016-12-09 18:57 | IPN ---
DATE: 12/09/2016 SUBJECTIVE: The patient is seen and examined in the room today. The patient is still complaining about pain and on the right side and patient is complaining about feeling generalized discomfort. Patient continues to have frequent nonproductive cough. The patient was hospitalized presently and then the last hospitalization the patient had at least 2-3 syncopal episodes. Patient also has chronic severe migraine headache during her last hospitalization, however migraine headache shows significant improvements. OBJECTIVE: VITAL SIGNS: Temperature 96.8, pulse 80, respirations 22, blood pressure 133/62, pulse oximetry is 92% on room air. GENERAL: Fatigue, mild distress secondary to frequent cough and difficulty breathing. The patient is alert and oriented times three, able to follow commands. CARDIOVASCULAR: Positive S1, S2, regular rate. LUNGS: Decreased breath sounds mainly on the right lower lobe. I can not appreciate any significant wheezes. ABDOMEN: Soft, nontender and nondistended and nondistended. Bowel sounds present. No rebound, no guarding. EXTREMITIES: No edema. No signs of cyanosis. LABORATORY DATA: WBC 3.6, hemoglobin 11.3, hematocrit 33, platelet count 63. Sodium 136, potassium 3.1, chloride 102, carbon dioxide 27, BUN 17, creatinine 0.79, GFR greater than 60, fasting glucose 203, calcium 7.86, magnesium 1.7, AST 12, ALT 21, alkaline phos 234, C-reactive protein 13.8, total protein 5.7, albumin 1.9. ASSESSMENT AND PLAN: 1. Acute on chronic respirator distress. Patient has a recent hospitalization with hospital acquired pneumonia. Patient empirically placed on broad spectrum antibiotics with meropenem and vancomycin. Respiratory panel came back negative however, patient has not been able to provide any sputum cultures. Patient also has a history of fluid collection at the right lower lobe. A CT chest without contrast was obtained. It showed increased right pleural effusion. Patient had a history of chest tube placement by Dr. Parker. I reviewed the case with Dr. Parker. 2. Liver cirrhosis secondary to HICKS. 3. Multiple syncopal episode during last hospitalization possibly due to previous persistent migraine. Will monitor on the telemetry for now. 4. History of intractable migraine headache resolved now. 5. History of varices. 6. Gastroesophageal reflux disease. on Protonix 7. History of insomnia. 8. History or vertigo on Meclizine. 9. Diabetes. Consistent carbohydrate diet. Insulin coverage. 10. History of obesity. 11. Dyslipidemia. 12. Chronic thrombocytopenia. 13. History of C-difficile colitis. 14. History of portal hypertension. 15. Elevated bilirubin possibly due to patient's cirrhosis. Abdominal ultrasound performed does not show any significant obstructions. Will monitor the bilirubin. 16. Anxiety depression. Continue with amitriptyline, trazodone, and citalopram. 17. Deep venous thrombosis (DVT) prophylaxis with TEDs and sequential compression devices. MTDD
[2016-12-09] MEDS ORDERED: SODIUM CHLORIDE HYPERTONIC 3% 15ML NEB SOL NEB ONE (19:30)
[2016-12-09] MEDS: AMITRIPTYLINE 25 MG TAB PO SCH (20:54)
[2016-12-10] MEDS: IPRATROPIUM 0.5MG/ALBUTEROL 2.5MG INH SOL UD 3ML (DUONEB)(J7620) NEB SCH ×4 (01:42→20:12)
[2016-12-10] MEDS ORDERED: SLF 3 ML SYR IV PRN (03:00)
[2016-12-10 04:20] VITALS: BP 112/56
[2016-12-10] MEDS: MEROPENEM INJ 1 GM in D5W MINI-BAG PLUS 100 ML IV SCH ×3 (04:24→20:32)
[2016-12-10] MEDS: SLF 3 ML SYR IV SCH ×3 (04:24→20:34)
[2016-12-10 05:36] LABS: BASO % 0.2 % (0.0-1.0); EOS # 0.1 K/mm3 (0.0-0.50); EOS % 1.8 % (0.0-3.0); LARGE UNSTAINED CELL # 0.1 K/mm3 (0.0-0.4); LYMPH # 0.6 K/mm3 (1.5-4.5); LYMPH % 12.6 % (24.0-44.0); MEAN CORPUSCULAR HEMOGLOBIN 31.7 pg (27.0-33.0); MEAN CORPUSCULAR VOLUME 96.2 fl (80.0-96.0); MONO # 0.3 K/mm3 (0.0-0.8); MONO % 6.5 % (0.0-5.0); NEUTROPHILS # 3.6 K/mm3 (1.8-7.7); NEUTROPHILS % 76.9 % (36.0-66.0); RED CELL DISTRIBUTION WIDTH 13.7 % (11.5-14.5); WHITE BLOOD COUNT 4.6 K/mm3 (4.0-10.0)
[2016-12-10 05:39] LABS: PLATELET COUNT, AUTOMATED 67 k/mm3 (150-450)
[2016-12-10 05:52] LABS: ALBUMIN 1.9 GM/DL (3.2-5.2); ALBUMIN/GLOBULIN RATIO 0.46 (1.00-1.93); ALKALINE PHOSPHATASE 366 U/L (45-117); ALT/SGPT 20 U/L (12-78); ANION GAP 6 MEQ/L (8-16); AST/SGOT 20 U/L (15-37); BILIRUBIN,TOTAL 1.4 MG/DL (0.2-1.0); BLOOD UREA NITROGEN 12 MG/DL (7-18); CALCIUM LEVEL 8.3 MG/DL (8.8-10.2); CARBON DIOXIDE LEVEL 27 MEQ/L (21-32); CHLORIDE LEVEL 104 MEQ/L (98-107); CREATININE FOR GFR 0.69 MG/DL (0.55-1.02); GLOMERULAR FILTRATION RATE > 60.0 (>45); GLUCOSE, FASTING 217 MG/DL (80-110); MAGNESIUM LEVEL 2.2 MG/DL (1.8-2.4); POTASSIUM SERUM 3.7 MEQ/L (3.5-5.1); SODIUM LEVEL 137 MEQ/L (136-145)
[2016-12-10] MEDS: VANCOMYCIN HCL 1,000 MG, VIAL MATE ADAPTER 1 EACH in D5W 250 ML IV SCH ×2 (06:41→18:21)
[2016-12-10 08:00] VITALS: BP 132/63
[2016-12-10] MEDS: LACTOBACILLUS ACIDOPHILUS CAP (BACID) PO SCH ×3 (08:24→17:50)
[2016-12-10] MEDS: ESCITALOPRAM OXALATE 10 MG TAB (LEXAPRO) PO SCH (08:24)
[2016-12-10] MEDS: PANTOPRAZOLE 40MG TAB (PROTONIX) PO SCH (08:25)
[2016-12-10] MEDS: GABAPENTIN 100 MG CAP PO SCH ×2 (08:25→20:33)
[2016-12-10] MEDS: MECLIZINE 25 MG TABLET PO SCH ×2 (08:25→20:33)
[2016-12-10] MEDS: FERROUS SULFATE 325MG TAB PO SCH ×3 (08:25→20:33)
[2016-12-10] MEDS: ASPIRIN 81 MG ENTERIC TAB PO SCH (08:25)
[2016-12-10] MEDS: HumaLOG INSULIN (NovoLOG) PER UNIT SC SCH ×4 (08:27→20:33)
[2016-12-10] MEDS: LEVEMIR (INSULIN DETEMIR) 1 UNITS/0.01ML SC SCH ×2 (08:27→20:32)
--- NOTE | 2016-12-10 08:33 | ECGEPIP ---
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
[2016-12-10] MEDS: NADOLOL 20MG TABLET PO SCH (09:32)
[2016-12-10 12:00] VITALS: BP 112/57
[2016-12-10] MEDS ORDERED: SODIUM CHLORIDE HYPERTONIC 3% 15ML NEB SOL NEB ONE (13:00)
[2016-12-10] MEDS: oxyCODONE 5MG TAB PO PRN ×2 (14:26→20:33)
[2016-12-10 16:00] VITALS: BP 117/65
[2016-12-10] MEDS: SPIRONOLACTONE 50 MG TAB PO SCH (17:50)
[2016-12-10] MEDS: FUROSEMIDE 80 MG TAB PO SCH (17:50)
--- NOTE | 2016-12-10 19:19 | IPN ---
DATE: 12/10/2016 SUBJECTIVE: Patient seen and examined in the room today. Patient is still complaining about the right lower rib pain. Patient continues to have cough. She is not able to produce any sputum. Denies any fever or chills. No overnight events reported. OBJECTIVE: VITAL SIGNS: Temperature 98.1, pulse 73, respirations 18, blood pressure 112/57, pulse oximetry 94% in room air. GENERAL: Fatigue, no signs of acute distress. Alert and oriented times three. HEENT: Normocephalic, atraumatic. Extraocular motor grossly intact. CARDIOVASCULAR: Positive S1, S2. Regular rate. LUNGS: Decreased lung sounds, mainly on the right lower lobe. There are some audible crackles. No significant wheezes. ABDOMEN: Soft, nontender, nondistended. Morbidly obese. Bowel sounds present. EXTREMITIES: No edema. No signs of cyanosis. LABORATORY DATA: WBC 4.6, hemoglobin 10.8, hematocrit 32.8, platelet count 67. Sodium 137, potassium 3.7, chloride 104, carbon dioxide 27, BUN 12, creatinine 0.69, GFR greater than 60, fasting glucose 217, calcium 8.3, magnesium 2.2. Total bilirubin 1.4, AST 20, ALT 20, alkaline phosphatase 366. C-reactive protein 14.5. Total protein 6. Albumin 1.9. ASSESSMENT AND PLAN: 1. Acute on chronic respiratory distress. Patient had a recent hospitalization. Suspect healthcare-acquired pneumonia. Patient has not been able to provide any sputum. We will try to obtain a sample through saline induction. Patient has been placed on antibiotics of meropenem and vancomycin. Respiratory panel was negative. Patient does have worsening of right-sided loculated pleural effusion. Imaging was reviewed with cardiothoracic surgeon, Dr. Parker. I discussed with Dr. Parker to increase the patient's diuretic. 2. 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 Patient is on spironolactone, Lasix and nadolol. 3. Acute kidney injury on admission. When patient presented to [facility], patient had a creatinine of 1.07 with a GFR of 55.3. Patient's diuretic had been on hold. Renal function has returned to baseline. We will restart patient's diuretic for patient's liver cirrhosis and also for increase in right pleural effusion. 4. History of multiple syncopal episodes. Patient's primary care providers note and previous hospitalizations were also reviewed. Patient has been having similar syncopal episodes for a long time. Patient was seen by a neurologist in the past. Will continue to monitor patient on telemetry for now. 5. History of intractable migraine headaches. Resolved now. 6. History of varices. 7. Gastroesophageal reflux disease. Continue home medications. 8. Anxiety and depression. Continue home medications. 9. History of insomnia. 10. History of vertigo. On meclizine. 11. History of diabetes. On consistent carbohydrate diet. Insulin coverage. 12. History of obesity. 13. Dyslipidemia. 14. Chronic thrombocytopenia. 15. History of Clostridium (C) difficile colitis. 16. History of portal hypertension. 17. Elevated bilirubin secondary to cirrhosis. Bilirubin is improving. 18. Deep venous thrombosis (DVT) prophylaxis. On thromboembolitic deterrents (TEDs) and sequential compression device.
[2016-12-10 19:53] VITALS: BP 113/58
--- NOTE | 2016-12-10 20:22 | PHACANCOPD ---
PHARMACY VANCOMYCIN DOSING Pt Demographics Demographics Patient Age:61 , Weight:110.700 , Gender: female Adjusted Body Weight Date: 12/08/16, Adjusted Body Weight: [75.639] Kg Events Past 24 Hours Events Past 24 Hours: NO: Dialysis, Diuretic Therapy, Change in CrCl, Fever, Elevation in WBC, Pending Diagnostics, Pending Procedures, Other Vancomycin Vancomycin indication: HCAP Vancomycin Target Ranges: 15-20 mcg/ml Vancomycin Load Y/N: Yes Load Dose Date Time Vancomycin Load Dose: 1500mg Date: 12/08/16 Time: 1900 Vancomycin Dose Date: 12/08/16. Current Vancomycin Dose: [1g IV Q12H] Intermittent Dosing?: No Labs Micro Microbiology 12/08/16 Blood Culture - Preliminary, Resulted No Growth after 48 hours. All Specime... 12/08/16 Blood Culture - Preliminary, Resulted No Growth after 48 hours. All Specime... 12/09/16 Respiratory Virus Panel (PCR) ([facility]) - Final, Complete 12/09/16 Urine Culture - Final, Complete Creatinine Clearance Date:12/08/16. Estimated Creatinine Clearance: [~59.9ml/min]. Pending Labs Vancomycin trough scheduled 12/11/16 @ 0600 Assessment and Plan Maintaining Current Dose?: Yes Reason for dose change: No Dose Change Pharmacist Note Pharmacist Note Date: 12/08/16. Pharmacist note: Ordered new trough for 12-11 0600. dose running when previous trough drawn. Will continue to monitor and make adjustments as needed. CLARE NELSON PHARM[facility] Dec 10, 2016 20:22
[2016-12-10] MEDS: AMITRIPTYLINE 25 MG TAB PO SCH (20:33)
[2016-12-10 23:55] VITALS: BP 116/56
[2016-12-11] MEDS: IPRATROPIUM 0.5MG/ALBUTEROL 2.5MG INH SOL UD 3ML (DUONEB)(J7620) NEB SCH ×4 (02:05→19:31)
[2016-12-11] MEDS: oxyCODONE 5MG TAB PO PRN ×3 (03:28→23:37)
[2016-12-11 04:34] VITALS: BP 112/56
[2016-12-11] MEDS: MEROPENEM INJ 1 GM in D5W MINI-BAG PLUS 100 ML IV SCH ×3 (05:07→21:16)
[2016-12-11] MEDS: SLF 3 ML SYR IV SCH ×3 (05:07→21:15)
[2016-12-11 06:52] LABS: ALBUMIN 1.9 GM/DL (3.2-5.2); ALBUMIN/GLOBULIN RATIO 0.54 (1.00-1.93); ALKALINE PHOSPHATASE 488 U/L (45-117); ALT/SGPT 22 U/L (12-78); ANION GAP 8 MEQ/L (8-16); AST/SGOT 25 U/L (15-37); BLOOD UREA NITROGEN 14 MG/DL (7-18); CALCIUM LEVEL 7.2 MG/DL (8.8-10.2); CARBON DIOXIDE LEVEL 28 MEQ/L (21-32); CHLORIDE LEVEL 102 MEQ/L (98-107); CREATININE FOR GFR 0.68 MG/DL (0.55-1.02); GLOMERULAR FILTRATION RATE > 60.0 (>45); GLUCOSE, FASTING 157 MG/DL (80-110); MAGNESIUM LEVEL 1.7 MG/DL (1.8-2.4); POTASSIUM SERUM 3.4 MEQ/L (3.5-5.1); SODIUM LEVEL 138 MEQ/L (136-145); TOTAL PROTEIN 5.4 GM/DL (6.4-8.2)
[2016-12-11] MEDS: VANCOMYCIN HCL 1,000 MG, VIAL MATE ADAPTER 1 EACH in D5W 250 ML IV SCH ×3 (06:54→23:37)
[2016-12-11 06:55] LABS: BASO % 0.3 % (0.0-1.0); EOS # 0.1 K/mm3 (0.0-0.50); EOS % 2.1 % (0.0-3.0); LARGE UNSTAINED CELL # 0.1 K/mm3 (0.0-0.4); LARGE UNSTAINED CELL % 1.8 % (0.0-4.0); LYMPH # 0.8 K/mm3 (1.5-4.5); LYMPH % 13.4 % (24.0-44.0); MEAN CORPUSCULAR HEMOGLOBIN 30.4 pg (27.0-33.0); MEAN CORPUSCULAR HGB CONC 31.8 g/dl (32.0-36.5); MEAN CORPUSCULAR VOLUME 95.6 fl (80.0-96.0); MONO # 0.3 K/mm3 (0.0-0.8); MONO % 5.8 % (0.0-5.0); NEUTROPHILS # 3.8 K/mm3 (1.8-7.7); NEUTROPHILS % 76.6 % (36.0-66.0)
[2016-12-11 07:18] LABS: PLATELET COUNT, AUTOMATED 86 k/mm3 (150-450)
[2016-12-11 08:00] VITALS: BP 111/58
[2016-12-11] MEDS ORDERED: POTASSIUM CHLORIDE 10 MEQ SR TABLET PO ONE (08:00)
[2016-12-11] MEDS: PANTOPRAZOLE 40MG TAB (PROTONIX) PO SCH (08:13)
[2016-12-11] MEDS: GABAPENTIN 100 MG CAP PO SCH ×2 (08:13→21:15)
[2016-12-11] MEDS: ASPIRIN 81 MG ENTERIC TAB PO SCH (08:13)
[2016-12-11] MEDS: ESCITALOPRAM OXALATE 10 MG TAB (LEXAPRO) PO SCH (08:13)
[2016-12-11] MEDS: NADOLOL 20MG TABLET PO SCH (08:13)
[2016-12-11] MEDS: SPIRONOLACTONE 50 MG TAB PO SCH ×2 (08:13→17:37)
[2016-12-11] MEDS: FERROUS SULFATE 325MG TAB PO SCH ×3 (08:14→21:15)
[2016-12-11] MEDS: LACTOBACILLUS ACIDOPHILUS CAP (BACID) PO SCH ×3 (08:14→17:37)
[2016-12-11] MEDS: FUROSEMIDE 80 MG TAB PO SCH ×2 (08:14→17:37)
[2016-12-11] MEDS: MECLIZINE 25 MG TABLET PO SCH ×2 (08:14→21:15)
[2016-12-11] MEDS: LEVEMIR (INSULIN DETEMIR) 1 UNITS/0.01ML SC SCH ×2 (08:15→21:14)
[2016-12-11] MEDS: HumaLOG INSULIN (NovoLOG) PER UNIT SC SCH ×4 (08:15→21:15)
[2016-12-11] MEDS: MAGNESIUM OXIDE 400 MG TAB (MAG-OX) PO SCH ×2 (08:18→21:15)
[2016-12-11] MEDS ORDERED: NYSTATIN 100,000 UNITS/GM TOPICAL PWD 15 GM TOP PRN (08:45)
--- NOTE | 2016-12-11 09:42 | PHACANCOPD ---
PHARMACY VANCOMYCIN DOSING Pt Demographics Demographics Patient Age:61 , Weight:110.900 , Gender: female Adjusted Body Weight Date: 12/08/16, Adjusted Body Weight: [75.639] Kg Events Past 24 Hours Events Past 24 Hours: YES: Change in CrCl, NO: Dialysis, Diuretic Therapy, Fever, Elevation in WBC, Pending Diagnostics , Pending Procedures, Other Vancomycin Vancomycin indication: HCAP Vancomycin Target Ranges: 15-20 mcg/ml Vancomycin Load Y/N: Yes Load Dose Date Time Vancomycin Load Dose: 1500mg Date: 12/08/16 Time: 1900 Vancomycin Dose Date: 12/11/16. Current Vancomycin Dose: [1g IV q8h @16] Date: 12/08/16. Current Vancomycin Dose: [1g IV Q12H] Intermittent Dosing?: No Labs Labs Item Value Date Time Creatinine 0.79 MG/DL 12/09/16 0650 Creatinine 0.69 MG/DL 12/10/16 0453 Creatinine 0.68 MG/DL 12/11/16 0610 Creatinine 1.07 MG/DL H 12/08/16 1437 Item Value Date Time White Blood Count 4.6 K/mm3 12/10/16 0453 White Blood Count 5.0 K/mm3 12/11/16 0610 Vancomycin Level Trough 11.2 UG/ML 12/11/16 0610 C-Reactive Protein, Quantitative 13.80 MG/DL H 12/09/16 0650 C-Reactive Protein, Quantitative 14.50 MG/DL H 12/10/16 0453 Micro Microbiology 12/08/16 Blood Culture - Preliminary, Resulted No Growth after 48 hours. All Specime... 12/08/16 Blood Culture - Preliminary, Resulted No Growth after 48 hours. All Specime... 12/11/16 Gram Stain, Received Pending 12/11/16 Sputum Culture, Received Pending 12/09/16 Respiratory Virus Panel (PCR) ([facility]) - Final, Complete 12/09/16 Urine Culture - Final, Complete Creatinine Clearance Date:12/11/16. Creatinine Clearance: [~100 ml/min]. Date:12/08/16. Estimated Creatinine Clearance: [~59.9ml/min]. Pending Labs Vancomycin trough scheduled 12/11/16 @ 0600 Assessment and Plan Maintaining Current Dose?: No Reason for dose change: Change in serum Cr, Trough too low Pharmacist Note Pharmacist Note Date: 12/11/16. Pharmacist note: Vanco trough drawn before the 5th dose came back at 11.4. SCr has significantly improved since admission, I have changed her to 1g q8h dosing. Sputum culture is pending, all other cultures NGTD. We will continue to monitor and make adjustments as necessary. Chris Peraza Pharm.D. Dec 11, 2016 09:42
--- NOTE | 2016-12-11 11:48 | IPNPDOC ---
Subjective Date Seen The patient was seen on 12/11/16. Subjective Chief Complaint/HPI The patient is a 61-year-old female admitted with a reason for visit of Pneumonia. General: Denies: Chills, Night Sweats Constitutional: Denies: Chills, Fever Eyes: Denies: Pain, Vision change ENT: Denies: Head Aches, Ear Pain Skin: Denies: Rash, Lesions Pulmonary: Reports: Dyspnea, Cough Cardiovascular: Denies: Chest Pain, Palpitations Gastrointestinal: Denies: Nausea, Vomiting Genitourinary: Denies: Dysuria, Frequency Hematologic: Denies: Bruising, Bleeding Excessively Musculoskeletal: Denies: Neck Pain, Back Pain Objective Physical Examination General Exam: Positive: Alert, Cooperative, No Acute Distress ENT Exam: Positive: Atraumatic, Mucous membr. moist/pink Neck Exam: Negative: JVD Chest Exam: Positive: Rhonchi, Diminished (diminishment in right lower lobe greater then left lower lobe), Negative: Rales Heart Exam: Positive: Rate Normal, Normal S1, Normal S2 Abdomen Exam: Positive: Soft, Negative: Tenderness Extremity Exam: Negative: Tenderness, Swelling Psych Exam: Positive: Oriented x 3 Assessment /Plan Plan/VTE VTE Prophylaxis Ordered?: Yes Plan Shortness of breath 2/2 Healthcare-Associated Pneumonia The patient states that she has been bringing up more yellowish sputum over the last 24 hours-this has been sent for cultures She is currently being empirically treated with vancomycin and meropenem Patient is currently requiring 3 L of oxygen via nasal cannula We will continue to down titrate the patient's supplemental oxygen as tolerated History of Right-sided loculated pleural effusion. The patient did have a chest tube placed in August [address] Parker of thoracic surgery, which yielded 3000 mL of bloody tinged fluid at the time CT imaging done on this admission was reviewed with cardiothoracic surgeon, Dr. Parker by my colleague Dr. 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 History of intractable migraine headaches, stable History of Esophageal varices. On Nadolol, Spironolactone and Lasix as noted above Anxiety and depression. Continue home medications. History of diabetes Cont consistent carbohydrate diet Cont Insulin coverage. GERD Continue PPI Deep venous thrombosis (DVT) prophylaxis (TEDs) and sequential compression device. Disposition-we will continue to monitor the patient's progress, and down titrate supplemental oxygen as tolerated. VS, I&O, [facility] Vital Signs/I&O Vital Signs Date Time Temp Pulse Resp B/P (MAP) Pulse Ox O2 Delivery O2 Flow Rate FiO2 12/11/16 08:13 71 111/58 12/11/16 08:00 98.0 18 92 Room Air I&O- Last 24 Hours up to 6 AM 12/11/16 06:00 Intake Total 1170 ml Output Total 2975 ml Balance -1805 ml Laboratory Data 24H LABS Laboratory Tests 2 12/10/16 16:26: Bedside Glucose (Misc Panel) 212H 12/10/16 19:40: Vancomycin Level Trough 28.3*H 12/10/16 20:22: Bedside Glucose (Misc Panel) 275H 12/11/16 06:10: Vancomycin Level Trough 11.2, White Blood Count 5.0, Red Blood Count 3.47L, Hemoglobin 10.5L, Hematocrit 33.2L, Mean Corpuscular Volume 95.6, Mean Corpuscular Hemoglobin 30.4, Mean Corpuscular Hemoglobin Concent 31.8L, Red Cell Distribution Width 14.0, Platelet Count 86L, Neutrophils (%) (Auto) 76.6H, Lymphocytes (%) (Auto) 13.4L, Monocytes (%) (Auto) 5.8H, Eosinophils (%) (Auto) 2.1, Basophils (%) (Auto) 0.3, Neutrophils # (Auto) 3.8, Lymphocytes # (Auto) 0.8L, Monocytes # (Auto) 0.3, Eosinophils # (Auto) 0.1, Basophils # (Auto) 0.0, Large Unclassified Cells % 1.8, Large Unclassified Cells # 0.1, Anion Gap 8, Glomerular Filtration Rate > 60.0, Blood Urea Nitrogen 14, Creatinine 0.68, Sodium Level 138, Potassium Level 3.4L, Chloride Level 102, Carbon Dioxide Level 28, Calcium Level 7.2L, Aspartate Amino Transf (AST/SGOT) 25, Alanine Aminotransferase (ALT/SGPT) 22, Alkaline Phosphatase 488H, Total Bilirubin 1.0, Total Protein 5.4L, Albumin 1.9L, Magnesium Level 1.7L, Albumin/Globulin Ratio 0.54L CBC/BMP Laboratory Tests 12/11/16 06:10 Red Blood Count 3.47 L, Mean Corpuscular Volume 95.6, Mean Corpuscular Hemoglobin 30.4, Mean Corpuscular Hemoglobin Concent 31.8 L, Red Cell Distribution Width 14.0, Neutrophils (%) (Auto) 76.6 H, Lymphocytes (%) (Auto) 13.4 L, Monocytes (%) (Auto) 5.8 H, Eosinophils (%) (Auto) 2.1, Basophils (%) ( Auto) 0.3, Neutrophils # (Auto) 3.8, Lymphocytes # (Auto) 0.8 L, Monocytes # ( Auto) 0.3, Eosinophils # (Auto) 0.1, Basophils # (Auto) 0.0, Calcium Level 7.2 L , Aspartate Amino Transf (AST/SGOT) 25, Alanine Aminotransferase (ALT/SGPT) 22, Alkaline Phosphatase 488 H, Total Bilirubin 1.0, Total Protein 5.4 L, Albumin 1.9 L Microbiology Microbiology 12/08/16 Blood Culture - Preliminary, Resulted No Growth after 48 hours. All Specime... 12/08/16 Blood Culture - Preliminary, Resulted No Growth after 48 hours. All Specime... 12/11/16 Gram Stain - Final, Resulted 12/11/16 Sputum Culture, Resulted Pending 12/09/16 Respiratory Virus Panel (PCR) ([facility]) - Final, Complete 12/09/16 Urine Culture - Final, Complete CONCHA THURMAN MD Dec 11, 2016 11:48
[2016-12-11 12:00] VITALS: BP 107/59
[2016-12-11 16:00] VITALS: BP 116/55
[2016-12-11 20:54] VITALS: BP 110/62
[2016-12-11] MEDS: AMITRIPTYLINE 25 MG TAB PO SCH (21:15)
[2016-12-11 23:38] VITALS: BP 117/55
[2016-12-12] MEDS: IPRATROPIUM 0.5MG/ALBUTEROL 2.5MG INH SOL UD 3ML (DUONEB)(J7620) NEB SCH ×4 (00:49→19:24)
[2016-12-12] MEDS: MEROPENEM INJ 1 GM in D5W MINI-BAG PLUS 100 ML IV SCH ×3 (04:43→22:09)
[2016-12-12] MEDS: SLF 3 ML SYR IV SCH ×3 (04:44→22:00)
[2016-12-12 04:45] VITALS: BP 102/53
[2016-12-12 05:28] LABS: ALBUMIN 1.8 GM/DL (3.2-5.2); ALBUMIN/GLOBULIN RATIO 0.44 (1.00-1.93); ALKALINE PHOSPHATASE 509 U/L (45-117); ALT/SGPT 23 U/L (12-78); ANION GAP 6 MEQ/L (8-16); AST/SGOT 26 U/L (15-37); BLOOD UREA NITROGEN 13 MG/DL (7-18); CALCIUM LEVEL 7.9 MG/DL (8.8-10.2); CARBON DIOXIDE LEVEL 30 MEQ/L (21-32); CHLORIDE LEVEL 100 MEQ/L (98-107); CREATININE FOR GFR 0.73 MG/DL (0.55-1.02); GLOMERULAR FILTRATION RATE > 60.0 (>45); GLUCOSE, FASTING 154 MG/DL (80-110); MAGNESIUM LEVEL 1.6 MG/DL (1.8-2.4); POTASSIUM SERUM 3.4 MEQ/L (3.5-5.1); SODIUM LEVEL 136 MEQ/L (136-145); TOTAL PROTEIN 5.9 GM/DL (6.4-8.2)
[2016-12-12 05:30] LABS: BASO % 0.4 % (0.0-1.0); EOS # 0.2 K/mm3 (0.0-0.50); EOS % 3.1 % (0.0-3.0); LARGE UNSTAINED CELL # 0.1 K/mm3 (0.0-0.4); LARGE UNSTAINED CELL % 2.6 % (0.0-4.0); LYMPH # 0.7 K/mm3 (1.5-4.5); LYMPH % 14.8 % (24.0-44.0); MEAN CORPUSCULAR HEMOGLOBIN 31.4 pg (27.0-33.0); MEAN CORPUSCULAR HGB CONC 33.3 g/dl (32.0-36.5); MEAN CORPUSCULAR VOLUME 94.3 fl (80.0-96.0); MONO # 0.2 K/mm3 (0.0-0.8); NEUTROPHILS # 3.5 K/mm3 (1.8-7.7); NEUTROPHILS % 74.2 % (36.0-66.0); PLATELET COUNT, AUTOMATED 103 k/mm3 (150-450); RED CELL DISTRIBUTION WIDTH 14.1 % (11.5-14.5); WHITE BLOOD COUNT 4.8 K/mm3 (4.0-10.0)
[2016-12-12 07:50] VITALS: BP 136/52
[2016-12-12] MEDS ORDERED: POTASSIUM CHLORIDE 10 MEQ SR TABLET PO ONE (08:45)
[2016-12-12] MEDS: PANTOPRAZOLE 40MG TAB (PROTONIX) PO SCH (09:08)
[2016-12-12] MEDS: ESCITALOPRAM OXALATE 10 MG TAB (LEXAPRO) PO SCH (09:08)
[2016-12-12] MEDS: LACTOBACILLUS ACIDOPHILUS CAP (BACID) PO SCH ×3 (09:09→17:06)
[2016-12-12] MEDS: NADOLOL 20MG TABLET PO SCH (09:09)
[2016-12-12] MEDS: ASPIRIN 81 MG ENTERIC TAB PO SCH (09:09)
[2016-12-12] MEDS: SPIRONOLACTONE 50 MG TAB PO SCH ×2 (09:09→16:20)
[2016-12-12] MEDS: FUROSEMIDE 80 MG TAB PO SCH ×2 (09:10→16:20)
[2016-12-12] MEDS: POTASSIUM CHLORIDE 10 MEQ SR TABLET PO SCH ×2 (09:10→12:24)
[2016-12-12] MEDS: FERROUS SULFATE 325MG TAB PO SCH ×3 (09:10→20:29)
[2016-12-12] MEDS: GABAPENTIN 100 MG CAP PO SCH ×2 (09:11→20:28)
[2016-12-12] MEDS: MECLIZINE 25 MG TABLET PO SCH ×2 (09:11→20:29)
[2016-12-12] MEDS: oxyCODONE 5MG TAB PO PRN ×3 (09:11→20:29)
[2016-12-12] MEDS: LEVEMIR (INSULIN DETEMIR) 1 UNITS/0.01ML SC SCH ×2 (09:12→22:08)
[2016-12-12] MEDS: MAG SULF 1GM/100ML (MAG RUN) 1 GM in APPROPRIATE DILUENT 1 EA IV SCH ×2 (09:13→10:36)
[2016-12-12] MEDS: VANCOMYCIN HCL 1,000 MG, VIAL MATE ADAPTER 1 EACH in D5W 250 ML IV SCH ×2 (09:13→16:20)
[2016-12-12] MEDS: HumaLOG INSULIN (NovoLOG) PER UNIT SC SCH ×4 (09:13→21:00)
[2016-12-12 12:00] VITALS: BP 115/62
[2016-12-12] MEDS: BENZONATATE 100 MG CAP PO SCH ×2 (12:25→20:29)
[2016-12-12 15:30] VITALS: BP 120/52
[2016-12-12 19:56] VITALS: BP 110/56
[2016-12-12] MEDS: AMITRIPTYLINE 25 MG TAB PO SCH (20:29)
[2016-12-12 20:45] VITALS: BP 123/62
--- NOTE | 2016-12-12 22:32 | IPNPDOC ---
Date Seen The patient was seen on 12/12/16. Progress Note SUBJECTIVE: Ms. Palma is a 61-year-old female who was examined at bedside this morning. She reports bilateral anterior and posterior rib pain as well as anterior chest pain secondary to coughing. Cough is nonproductive. Denies hemoptysis. She also reports a frontal headache associated with her coughing. Reports that the headache started last evening. Reports increasing abdominal distention. Admits to passing flatus and has had 2 bowel movements, nonbloody. She was most recently hospitalized over [facility] and treated for intractable migraine headache. Patient is on amitriptyline 25 mg daily at bedtime. Have increased Benadryl to 50 mg. Secondary to magnesium being low have ordered 2x magnesium sulfate runs which might alleviate her headache. Also replenishing her potassium. OBJECTIVE PHYSICAL EXAMINATION: VITAL SIGNS: Please see below. GENERAL: Obese female laying supine in the hospital bed on evaluation this morning, does not appear to be in any distress HEENT: Atraumatic, normocephalic, PERRL, EOMI mild mucosa appears pink and moist , nasal septum appears midline CARDIOVASCULAR: Regular rate and rhythm, normal S1 and S2, no murmur appreciated , reproducible anterior chest pain RESPIRATORY: Clear to auscultation bilaterally, no wheeze, rhonchi, crackles ABDOMINAL: Distended abdomen, ecchymoses noted in the left lower quadrant, stretch palm noted along the anterior abdomen, mildly tympanic along upper anterior abdomen, no fluid wave, no shifting dullness, no rebound tenderness EXTREMITIES: Peripheral pulses appreciated bilaterally in upper and lower extremities, no edema appreciated NEUROLOGICAL: Cranial nerves II through XII appear grossly intact PSYCHOLOGICAL: Mood and affect appear appropriate LABORATORY DATA: Please see below. MICROBIOLOGY: Please see below. DVT prophylaxis ordered?: TEDs and sequentials ASSESSMENT AND PLAN: Ms. Palma is a 61-year-old female admitted for hospital associated pneumonia. PROBLEMS: 1. Hospital associated pneumonia: White count this morning is 4.8, temperature 98.8, negative fluid balance of 3055 mL for the last 24 hours. Patient remains on vancomycin and meropenem with apparent improvement. Patient reports a nonproductive cough. Denies hemoptysis. Ordered Tessalon Perles to alleviate cough. Patient is oxygenating on room air without incident. Will attempt to ambulate patient and monitor oxygen saturation. 2. Headache: Patient reports a frontal headache that started last evening. Reports a history of migraine headaches. Currently on amitriptyline. Have increased Benadryl to 50 mg. Have initiated 2 doses of magnesium sulfate secondary to deficiency. Could consider initiating steroid if headache does not improve. 3. Nonproductive cough: Patient reports a nonproductive cough without hemoptysis. Cough also causing bilateral anterior and posterior rib pain as well as reproducible anterior chest pain. Started patient on Tessalon Perles. 4. Hypokalemia: Patient's potassium was 3.4. Have initiated 2 doses of 40 mEq potassium chloride. 5. Hypomagnesemia: Patient's magnesium was 1.6. Have initiated 2 doses magnesium sulfate. 6. 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 Patient had negative fluid balance overnight of 3055 mL. 7. Diabetes mellitus: Patient's blood sugar this morning was 154. Remains on 66 units of insulin as well as sliding scale insulin and hypoglycemic protocol. 8. Neuropathy: Patient remains gabapentin. 9. Depression: Patient remains on Lexapro and amitriptyline. 10. Iron deficiency: Patient's hemoglobin and hematocrit are 10.9 and 32.6, respectively. Patient remains on ferrous sulfate 325 mg. 11. Chronic pain: Patient is on oxycodone and trazodone. DISPOSITION: Patient remains admitted to the progressive care unit. Pneumonia appears to be improving. Patient remains on vancomycin and meropenem. White count 4.8. Negative fluid balance of 3055 mL overnight. Continue furosemide. Patient is no longer on oxygen and appears to be oxygenating well on room air without noted shortness of breath. Does report anterior and posterior bilateral rib pain as well as reproducible chest pain, likely secondary to cough. Initiating Tessalon Perles. Patient also reports migraine headache. Have increased Benadryl 50 mg. Continue amitriptyline. Could consider initiating steroid. Patient is receiving magnesium sulfate low magnesium. We'll continue to monitor patient at this time. VS, I&O, 24H, [facility] Vital Signs/I&O Vital Signs Date Time Temp Pulse Resp B/P (MAP) Pulse Ox O2 Delivery O2 Flow Rate FiO2 12/12/16 07:50 98.8 70 18 136/52 (80) 97 Room Air I&O- Last 24 Hours up to 6 AM 12/12/16 05:59 Intake Total 1020 ml Output Total 3600 ml Balance -2580 ml Laboratory Data 24H LABS Laboratory Tests 2 12/11/16 11:28: Bedside Glucose (Misc Panel) 158H 12/11/16 16:55: Bedside Glucose (Misc Panel) 279H 12/11/16 20:58: Bedside Glucose (Misc Panel) 260H 12/12/16 04:41: White Blood Count 4.8, Red Blood Count 3.46L, Hemoglobin 10.9L, Hematocrit 32.6L , Mean Corpuscular Volume 94.3, Mean Corpuscular Hemoglobin 31.4, Mean Corpuscular Hemoglobin Concent 33.3, Red Cell Distribution Width 14.1, Platelet Count 103L, Neutrophils (%) (Auto) 74.2H, Lymphocytes (%) (Auto) 14.8L, Monocytes (%) (Auto) 5.0, Eosinophils (%) (Auto) 3.1H, Basophils (%) (Auto) 0.4 , Neutrophils # (Auto) 3.5, Lymphocytes # (Auto) 0.7L, Monocytes # (Auto) 0.2, Eosinophils # (Auto) 0.2, Basophils # (Auto) 0.0, Large Unclassified Cells % 2.6 , Large Unclassified Cells # 0.1, Anion Gap 6L, Glomerular Filtration Rate > 60.0, Blood Urea Nitrogen 13, Creatinine 0.73, Sodium Level 136, Potassium Level 3.4L, Chloride Level 100, Carbon Dioxide Level 30, Calcium Level 7.9L, Aspartate Amino Transf (AST/SGOT) 26, Alanine Aminotransferase (ALT/SGPT) 23, Alkaline Phosphatase 509H, Total Bilirubin 1.0, Total Protein 5.9L, Albumin 1.8L , Magnesium Level 1.6L, Albumin/Globulin Ratio 0.44L CBC/BMP Laboratory Tests 12/12/16 04:41 Red Blood Count 3.46 L, Mean Corpuscular Volume 94.3, Mean Corpuscular Hemoglobin 31.4, Mean Corpuscular Hemoglobin Concent 33.3, Red Cell Distribution Width 14.1, Neutrophils (%) (Auto) 74.2 H, Lymphocytes (%) (Auto) 14.8 L, Monocytes (%) (Auto) 5.0, Eosinophils (%) (Auto) 3.1 H, Basophils (%) ( Auto) 0.4, Neutrophils # (Auto) 3.5, Lymphocytes # (Auto) 0.7 L, Monocytes # ( Auto) 0.2, Eosinophils # (Auto) 0.2, Basophils # (Auto) 0.0, Calcium Level 7.9 L , Aspartate Amino Transf (AST/SGOT) 26, Alanine Aminotransferase (ALT/SGPT) 23, Alkaline Phosphatase 509 H, Total Bilirubin 1.0, Total Protein 5.9 L, Albumin 1.8 L Microbiology Microbiology 12/08/16 Blood Culture - Preliminary, Resulted No Growth after 72 hours. All specime... 12/08/16 Blood Culture - Preliminary, Resulted No Growth after 72 hours. All specime... 12/11/16 Gram Stain - Final, Resulted 12/11/16 Sputum Culture, Resulted Pending 12/09/16 Respiratory Virus Panel (PCR) ([facility]) - Final, Complete 12/09/16 Urine Culture - Final, Complete JAY JAY BARBER December 12, 2016 09:36
[2016-12-13] MEDS: IPRATROPIUM 0.5MG/ALBUTEROL 2.5MG INH SOL UD 3ML (DUONEB)(J7620) NEB SCH ×4 (01:24→19:18)
[2016-12-13] MEDS: VANCOMYCIN HCL 1,000 MG, VIAL MATE ADAPTER 1 EACH in D5W 250 ML IV SCH ×3 (02:52→17:19)
[2016-12-13] MEDS: oxyCODONE 5MG TAB PO PRN ×4 (02:56→22:32)
[2016-12-13] MEDS: SLF 3 ML SYR IV SCH ×3 (05:16→20:48)
[2016-12-13] MEDS: MEROPENEM INJ 1 GM in D5W MINI-BAG PLUS 100 ML IV SCH ×3 (05:16→20:44)
[2016-12-13 06:00] VITALS: BP 115/56
[2016-12-13 07:46] LABS: BASO % 0.6 % (0.0-1.0); EOS # 0.1 K/mm3 (0.0-0.50); EOS % 2.8 % (0.0-3.0); LARGE UNSTAINED CELL # 0.1 K/mm3 (0.0-0.4); LARGE UNSTAINED CELL % 2.4 % (0.0-4.0); LYMPH # 0.9 K/mm3 (1.5-4.5); LYMPH % 16.4 % (24.0-44.0); MEAN CORPUSCULAR HEMOGLOBIN 31.4 pg (27.0-33.0); MEAN CORPUSCULAR HGB CONC 32.9 g/dl (32.0-36.5); MEAN CORPUSCULAR VOLUME 95.3 fl (80.0-96.0); MONO # 0.3 K/mm3 (0.0-0.8); MONO % 6.6 % (0.0-5.0); NEUTROPHILS # 3.3 K/mm3 (1.8-7.7); NEUTROPHILS % 71.2 % (36.0-66.0); PLATELET COUNT, AUTOMATED 113 k/mm3 (150-450); WHITE BLOOD COUNT 4.6 K/mm3 (4.0-10.0)
[2016-12-13 08:16] LABS: ALBUMIN 1.9 GM/DL (3.2-5.2); ALBUMIN/GLOBULIN RATIO 0.44 (1.00-1.93); ALKALINE PHOSPHATASE 583 U/L (45-117); ALT/SGPT 30 U/L (12-78); ANION GAP 6 MEQ/L (8-16); AST/SGOT 38 U/L (15-37); BILIRUBIN,TOTAL 0.9 MG/DL (0.2-1.0); BLOOD UREA NITROGEN 11 MG/DL (7-18); CARBON DIOXIDE LEVEL 33 MEQ/L (21-32); CHLORIDE LEVEL 98 MEQ/L (98-107); CREATININE FOR GFR 0.69 MG/DL (0.55-1.02); GLOMERULAR FILTRATION RATE > 60.0 (>45); GLUCOSE, FASTING 107 MG/DL (80-110); MAGNESIUM LEVEL 1.9 MG/DL (1.8-2.4); POTASSIUM SERUM 3.4 MEQ/L (3.5-5.1); SODIUM LEVEL 137 MEQ/L (136-145); TOTAL PROTEIN 6.2 GM/DL (6.4-8.2)
[2016-12-13 09:00] VITALS: BP 132/84
[2016-12-13] MEDS: NYSTATIN 500,000 U/5 ML SUSP UDC SS SCH ×4 (09:00→20:45)
[2016-12-13] MEDS: HumaLOG INSULIN (NovoLOG) PER UNIT SC SCH ×4 (09:39→20:45)
[2016-12-13] MEDS: NADOLOL 20MG TABLET PO SCH (09:40)
[2016-12-13] MEDS: BENZONATATE 100 MG CAP PO SCH ×2 (09:40→20:46)
[2016-12-13] MEDS: LEVEMIR (INSULIN DETEMIR) 1 UNITS/0.01ML SC SCH ×2 (09:40→20:44)
[2016-12-13] MEDS: GABAPENTIN 100 MG CAP PO SCH ×2 (09:42→20:47)
[2016-12-13] MEDS: FERROUS SULFATE 325MG TAB PO SCH ×3 (09:42→20:47)
[2016-12-13] MEDS: ASPIRIN 81 MG ENTERIC TAB PO SCH (09:42)
[2016-12-13] MEDS: FUROSEMIDE 80 MG TAB PO SCH ×2 (09:42→17:18)
[2016-12-13] MEDS: MECLIZINE 25 MG TABLET PO SCH ×2 (09:42→20:47)
[2016-12-13] MEDS: diphenhydrAMINE 50 MG CAP PO PRN ×2 (09:42→22:32)
[2016-12-13] MEDS: SPIRONOLACTONE 50 MG TAB PO SCH ×2 (09:42→17:18)
[2016-12-13] MEDS: PANTOPRAZOLE 40MG TAB (PROTONIX) PO SCH (09:42)
[2016-12-13] MEDS: POTASSIUM CHLORIDE 10 MEQ SR TABLET PO SCH ×2 (09:43→20:46)
[2016-12-13] MEDS: ESCITALOPRAM OXALATE 10 MG TAB (LEXAPRO) PO SCH (09:43)
[2016-12-13] MEDS: LACTOBACILLUS ACIDOPHILUS CAP (BACID) PO SCH ×3 (09:43→17:17)
--- NOTE | 2016-12-13 11:54 | IPNPDOC ---
Date Seen The patient was seen on 12/13/16. Progress Note SUBJECTIVE: Ms. Palma is a 61-year-old female who is evaluated at bedside this morning. She has been transferred to the medical surgical unit on . She reports that her nonproductive cough appears to be improving with the Tessalon Perles. She does receive oxycodone for chronic pain and she feels like that helped somewhat with her rib pain. Her potassium continues to be mildly decreased at 3.4. Will obtain an EKG. Patient denies vomiting or diarrhea. With continued diuretic therapy patient has more than adequate urine output. Patient does still have abdominal distention and have discussed with patient extensively with her whether or not she would like to have this evaluated. Have ordered a CT of the abdomen and pelvis to evaluate for possible ascites secondary to patient's underlying cirrhosis. Patient's sputum positive for yeast. Started patient on nystatin swish and swallow. Patient states that she takes Nexium as an outpatient; however, we do not have this on formulary. Patient queried wether a change in her PPI would make a difference to her cough. Have switched patient from pantoprazole to omeprazole. Patient states that she is ambulating with not much dip in her oxygenation. Continues to remain off of oxygen. OBJECTIVE PHYSICAL EXAMINATION: VITAL SIGNS: Please see below. GENERAL: Well-developed, well-nourished female resting on her right side upon evaluation this morning, appears stated age, in no apparent distress HEENT: Atraumatic, normocephalic, PERRL, EOMI, oral mucosa appears pink and moist, nasal septum appears midline, nares appear patent, poor dentition CARDIOVASCULAR: Regular rate and rhythm, normal S1 and S2, no murmur, rub, click RESPIRATORY: Clear to auscultation bilaterally, adequate inspiratory and expiratory airway excursion, no wheeze, rhonchi, crackles ABDOMINAL: Abdomen is distended, tender to mild palpation, abdominal striae/ stretch palm are present EXTREMITIES: Moving all 4 extremities appropriately, upper and lower extremity peripheral pulses appreciated, equal, symmetrical, +2/4, no edema appreciated NEUROLOGICAL: Cranial nerves II through XII appear grossly intact PSYCHOLOGICAL: Mood and affect appear appropriate LABORATORY DATA: Please see below. MICROBIOLOGY: Please see below. IMAGING: CT of the abdomen and pelvis without contrast is pending DVT prophylaxis ordered?: TEDs and sequential; activity as tolerated ASSESSMENT AND PLAN: Ms. Palma is a 61-year-old female admitted for hospital associated pneumonia. PROBLEMS: 1. Hospital associated pneumonia: White count this morning was 4.6. Has remained afebrile. Continues vancomycin and meropenem. Patient reports the Tessalon Perles has alleviated her cough. Patient is ambulating without requiring oxygen. 2. Headache: Patient continues to report headache. Patient states that it is slightly improved from yesterday. Continue patient on amitriptyline and Benadryl. Continue to monitor. 3. Chest pain: Patient reports chest pain associated with coughing. Has been reproducible to palpation. Obtaining EKG. 4. Nonproductive cough: Without hemoptysis, nausea, vomiting. Tessalon Perles appears to be alleviating cough. 5. Hypokalemia: Potassium was 3.4. Have ordered 40 mEq potassium chloride twice a day. Patient is being aggressively diuresed with spironolactone and Lasix which could be contributing to patient's hypokalemia. Will continue to monitor with daily BMP. 6. Hypomagnesemia: Patient's magnesium level was 1.9 this morning. Appears to be resolved. 7. 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 Patient had negative fluid balance overnight of 920 mL. Patient continues to have abdominal distention. We'll be obtaining a CT of the abdomen and pelvis without contrast to evaluate for ascites. Continue patient on spironolactone and furosemide for diuresis. 7. Diabetes mellitus: Patient's blood sugar this morning was 107. Remains on 66 units of insulin as well as sliding scale insulin and hypoglycemic protocol. 8. Neuropathy: Patient remains gabapentin. 9. Depression: Patient remains on Lexapro and amitriptyline. 10. Iron deficiency: Patient's hemoglobin and hematocrit are 10.9 and 33.3, respectively. Patient remains on ferrous sulfate 325 mg. 11. Chronic pain: Patient is on oxycodone and trazodone. DISPOSITION: Patient continues on vancomycin and meropenem for hospital associated pneumonia. White count has remained within normal limits. Patient is ambulating without oxygen without incident. Patient's potassium continues to be decreased at 3.4. Have added 40 mEq potassium chloride twice a day. Patient continues to be aggressively diuresed for right sided pleural effusion. Evaluating patient's abdominal distention with CT of the abdomen and pelvis without contrast for possible ascites. Continue with current management for patient's cirrhosis secondary to nonalcoholic steatohepatitis. Possible discharge in the next 24-48 hrs. VS, I&O, 24H, Fishbone Vital Signs/I&O Vital Signs Date Time Temp Pulse Resp B/P (MAP) Pulse Ox O2 Delivery O2 Flow Rate FiO2 12/13/16 09:41 18 12/13/16 09:40 75 120/56 12/13/16 09:00 96.9 96 Room Air I&O- Last 24 Hours up to 6 AM 12/13/16 06:00 Intake Total 3900 ml Output Total 5250 ml Balance -1350 ml Laboratory Data 24H LABS Laboratory Tests 2 12/12/16 11:46: Bedside Glucose (Misc Panel) 193H 12/12/16 14:44: Vancomycin Level Trough 22.0H 12/12/16 16:42: Bedside Glucose (Misc Panel) 210H 12/12/16 21:08: Bedside Glucose (Misc Panel) 243H 12/13/16 07:16: White Blood Count 4.6, Red Blood Count 3.49L, Hemoglobin 10.9L, Hematocrit 33.3L , Mean Corpuscular Volume 95.3, Mean Corpuscular Hemoglobin 31.4, Mean Corpuscular Hemoglobin Concent 32.9, Red Cell Distribution Width 14.0, Platelet Count 113L, Neutrophils (%) (Auto) 71.2H, Lymphocytes (%) (Auto) 16.4L, Monocytes (%) (Auto) 6.6H, Eosinophils (%) (Auto) 2.8, Basophils (%) (Auto) 0.6 , Neutrophils # (Auto) 3.3, Lymphocytes # (Auto) 0.9L, Monocytes # (Auto) 0.3, Eosinophils # (Auto) 0.1, Basophils # (Auto) 0.0, Large Unclassified Cells % 2.4 , Large Unclassified Cells # 0.1, Anion Gap 6L, Glomerular Filtration Rate > 60.0, Blood Urea Nitrogen 11, Creatinine 0.69, Sodium Level 137, Potassium Level 3.4L, Chloride Level 98, Carbon Dioxide Level 33H, Calcium Level 8.0L, Aspartate Amino Transf (AST/SGOT) 38H, Alanine Aminotransferase (ALT/SGPT) 30, Alkaline Phosphatase 583H, Total Bilirubin 0.9, Total Protein 6.2L, Albumin 1.9L , Magnesium Level 1.9, Albumin/Globulin Ratio 0.44L CBC/BMP Laboratory Tests 12/13/16 07:16 Red Blood Count 3.49 L, Mean Corpuscular Volume 95.3, Mean Corpuscular Hemoglobin 31.4, Mean Corpuscular Hemoglobin Concent 32.9, Red Cell Distribution Width 14.0, Neutrophils (%) (Auto) 71.2 H, Lymphocytes (%) (Auto) 16.4 L, Monocytes (%) (Auto) 6.6 H, Eosinophils (%) (Auto) 2.8, Basophils (%) ( Auto) 0.6, Neutrophils # (Auto) 3.3, Lymphocytes # (Auto) 0.9 L, Monocytes # ( Auto) 0.3, Eosinophils # (Auto) 0.1, Basophils # (Auto) 0.0, Calcium Level 8.0 L , Aspartate Amino Transf (AST/SGOT) 38 H, Alanine Aminotransferase (ALT/SGPT) 30 , Alkaline Phosphatase 583 H, Total Bilirubin 0.9, Total Protein 6.2 L, Albumin 1.9 L Microbiology Microbiology 12/08/16 Blood Culture - Preliminary, Resulted No Growth after 72 hours. All specime... 12/08/16 Blood Culture - Preliminary, Resulted No Growth after 72 hours. All specime... 12/11/16 Gram Stain - Final, Complete 12/11/16 Sputum Culture - Final, Complete Yeast Like Organism 12/09/16 Respiratory Virus Panel (PCR) ([facility]) - Final, Complete 12/09/16 Urine Culture - Final, Complete JAY JAY BARBER December 13, 2016 11:54
[2016-12-13 14:00] VITALS: BP 120/56
[2016-12-13] MEDS: AMITRIPTYLINE 25 MG TAB PO SCH (20:47)
[2016-12-13 22:00] VITALS: BP 143/63
[2016-12-13] MEDS: traZODone 50 MG TAB PO PRN (22:32)
[2016-12-14] MEDS: IPRATROPIUM 0.5MG/ALBUTEROL 2.5MG INH SOL UD 3ML (DUONEB)(J7620) NEB SCH ×4 (01:31→19:33)
[2016-12-14] MEDS: VANCOMYCIN HCL 1,000 MG, VIAL MATE ADAPTER 1 EACH in D5W 250 ML IV SCH ×2 (02:10→10:41)
[2016-12-14] MEDS: MEROPENEM INJ 1 GM in D5W MINI-BAG PLUS 100 ML IV SCH ×2 (05:55→12:23)
[2016-12-14] MEDS: SLF 3 ML SYR IV SCH ×3 (05:55→21:30)
[2016-12-14 06:00] VITALS: BP 125/66
--- NOTE | 2016-12-14 06:19 | REP ---
Clinical: Abdominal distension. Comparison: 10/20/2016. Findings: Examination is somewhat limited by the lack of oral and intravenous contrast enhancement. Lung bases demonstrate right-sided pleural thickening and moderate right pleural effusion which appears to be multiloculated as well as basilar atelectasis. No evidence for cardiomegaly or pericardial effusion. Cirrhosis noted including mild/moderate ascites, splenomegaly and evidence for portal venous hypertension with stranding throughout the mesentery and small scattered lymph nodes. Cholelithiasis noted without CT evidence for acute cholecystitis. Kidneys and bilateral adrenal glands are relatively normal / stable. The enteric system is without obstruction or acute inflammatory process. Pelvis demonstrates normal bladder and age-appropriate uterus/adnexa. Soft tissue/trapped fluid and calcification related to periumbilical hernia noted and similar to prior examination. No free air. Mild atherosclerotic changes of the aorta and vasculature. Musculoskeletal structures demonstrate age-related degenerative changes. Impression: 1. Right-sided pleural thickening with moderate multiloculated right pleural effusion and basilar atelectasis. 2. Cirrhosis with portal hypertension including mild to moderate ascites minimally improved from prior examination, splenomegaly and cholelithiasis. 3. No new acute intra-abdominal or pelvic pathology appreciated. Signed by Pk Hansen MD 12/14/2016 06:11 A
[2016-12-14 06:49] LABS: BASO % 0.5 % (0.0-1.0); EOS # 0.1 K/mm3 (0.0-0.50); EOS % 2.4 % (0.0-3.0); LARGE UNSTAINED CELL # 0.1 K/mm3 (0.0-0.4); LARGE UNSTAINED CELL % 2.3 % (0.0-4.0); LYMPH # 0.7 K/mm3 (1.5-4.5); LYMPH % 14.9 % (24.0-44.0); MEAN CORPUSCULAR HEMOGLOBIN 31.7 pg (27.0-33.0); MEAN CORPUSCULAR HGB CONC 33.4 g/dl (32.0-36.5); MEAN CORPUSCULAR VOLUME 95.1 fl (80.0-96.0); MONO # 0.2 K/mm3 (0.0-0.8); MONO % 4.1 % (0.0-5.0); NEUTROPHILS # 3.3 K/mm3 (1.8-7.7); NEUTROPHILS % 75.8 % (36.0-66.0); PLATELET COUNT, AUTOMATED 113 k/mm3 (150-450); RED CELL DISTRIBUTION WIDTH 13.9 % (11.5-14.5); WHITE BLOOD COUNT 4.3 K/mm3 (4.0-10.0)
[2016-12-14 07:09] LABS: ALBUMIN 1.8 GM/DL (3.2-5.2); ALBUMIN/GLOBULIN RATIO 0.42 (1.00-1.93); ALKALINE PHOSPHATASE 554 U/L (45-117); ALT/SGPT 29 U/L (12-78); ANION GAP 8 MEQ/L (8-16); AST/SGOT 37 U/L (15-37); BILIRUBIN,TOTAL 0.9 MG/DL (0.2-1.0); BLOOD UREA NITROGEN 16 MG/DL (7-18); CALCIUM LEVEL 7.6 MG/DL (8.8-10.2); CARBON DIOXIDE LEVEL 31 MEQ/L (21-32); CHLORIDE LEVEL 99 MEQ/L (98-107); CREATININE FOR GFR 0.73 MG/DL (0.55-1.02); GLOMERULAR FILTRATION RATE > 60.0 (>45); GLUCOSE, FASTING 140 MG/DL (80-110); MAGNESIUM LEVEL 1.8 MG/DL (1.8-2.4); POTASSIUM SERUM 3.6 MEQ/L (3.5-5.1); SODIUM LEVEL 138 MEQ/L (136-145); TOTAL PROTEIN 6.1 GM/DL (6.4-8.2)
[2016-12-14] MEDS ORDERED: POTASSIUM CHLORIDE 10 MEQ SR TABLET PO ONE (07:45)
[2016-12-14] MEDS: LEVEMIR (INSULIN DETEMIR) 1 UNITS/0.01ML SC SCH ×2 (08:45→21:30)
[2016-12-14] MEDS: BENZONATATE 100 MG CAP PO SCH ×2 (08:46→21:29)
[2016-12-14] MEDS: oxyCODONE 5MG TAB PO PRN ×2 (08:46→21:33)
[2016-12-14] MEDS: HumaLOG INSULIN (NovoLOG) PER UNIT SC SCH ×4 (08:46→21:00)
[2016-12-14] MEDS: GABAPENTIN 100 MG CAP PO SCH ×2 (08:46→21:29)
[2016-12-14] MEDS: NYSTATIN 500,000 U/5 ML SUSP UDC SS SCH ×4 (08:46→21:29)
[2016-12-14] MEDS: FUROSEMIDE 80 MG TAB PO SCH ×2 (08:47→17:42)
[2016-12-14] MEDS: ESCITALOPRAM OXALATE 10 MG TAB (LEXAPRO) PO SCH (08:47)
[2016-12-14] MEDS: LACTOBACILLUS ACIDOPHILUS CAP (BACID) PO SCH ×3 (08:47→17:42)
[2016-12-14] MEDS: ASPIRIN 81 MG ENTERIC TAB PO SCH (08:48)
[2016-12-14] MEDS: FERROUS SULFATE 325MG TAB PO SCH ×3 (08:48→21:29)
[2016-12-14] MEDS: SPIRONOLACTONE 50 MG TAB PO SCH ×2 (08:48→17:42)
[2016-12-14] MEDS: NADOLOL 20MG TABLET PO SCH (08:48)
[2016-12-14] MEDS: OMEPRAZOLE 20 MG CAP PO SCH (08:48)
[2016-12-14] MEDS: MECLIZINE 25 MG TABLET PO SCH ×2 (08:48→21:29)
--- NOTE | 2016-12-14 12:11 | IPNPDOC ---
Date Seen The patient was seen on 12/14/16. Progress Note SUBJECTIVE: Ms. Palma is a 61-year-old female is examined at bedside this morning. She still has a persistent cough and still complains of a mild headache. She reports that the Tessalon Perles were helping initially, but she is not noticing much of an appreciable effect now with a cough. To change her PPI to Prilosec yesterday. CT of the abdomen and pelvis without contrast was performed yesterday which does reveal mild to moderate ascites as well as loculated pleural effusions noted on the right. Discussed with patient various options and patient has agreed to have us consult with thoracic surgery to possibly drain the pleural effusion and alleviate some of the patient's symptoms. Patient states that she is ambulating at least 2 laps without developing significant shortness of breath. She remains off of oxygen. OBJECTIVE PHYSICAL EXAMINATION: VITAL SIGNS: Please see below. GENERAL: Pleasant female who appears stated age laying in hospital bed upon evaluation this morning, no apparent distress HEENT: Atraumatic, normocephalic, PERRL, EOMI, oral mucosa appears pink and moist, nasal septum appears midline, dentition appears poor CARDIOVASCULAR: Regular rate and rhythm, normal S1 and S2, no murmur, rub, click appreciated RESPIRATORY: Clear to auscultation bilaterally, diminished breath sounds the right lung base, no wheeze, rhonchi, crackles ABDOMINAL: Distended, soft, nontender to light palpation, bowel sounds appreciated EXTREMITIES: Moving all 4 extremities appropriately, no appreciable edema, upper and lower extremity pulses appreciated bilaterally, equal, symmetrical, +2 /4 NEUROLOGICAL: Cranial nerves II through XII appear grossly intact PSYCHOLOGICAL: Mood and affect appear appropriate LABORATORY DATA: Please see below. MICROBIOLOGY: Please see below. IMAGING: CT of the abdomen and pelvis without contrast Impression: 1. Right-sided pleural thickening with moderate multiloculated right pleural effusion and basilar atelectasis. 2. Cirrhosis with portal hypertension including mild to moderate ascites minimally improved from prior examination, splenomegaly and cholelithiasis. 3. No new acute intra-abdominal or pelvic pathology appreciated. DVT prophylaxis ordered?: TEDs and sequentials; activity as tolerated ASSESSMENT AND PLAN: Ms. Palma is a 61-year-old female admitted for hospital associated pneumonia. PROBLEMS: 1. Hospital associated pneumonia: WBC this one was 4.3. Patient continues to remain afebrile. No pneumonia appreciated on CT of the abdomen and pelvis. Continue with intravenous vancomycin and meropenem for the time being. We'll discuss case with thoracic surgery to determine if draining the pleural effusion will alleviate some of the patient's symptoms and if empiric antibiotic therapy recommended. Patient continues to ambulate without oxygen. Continue to monitor daily labs. 2. Multiloculated right pleural effusions: CT of the abdomen and pelvis without contrast revealed multiloculated pleural effusion on the right. Patient continues to have persistent nonproductive cough with associated rib and chest pain. Patient has agreed to have her case discussed with thoracic surgery to determine if possible drainage is necessary. It might help alleviate some of her symptoms. Patient continues with intravenous antibiotic therapy at this time. Will continue until case can be discussed with thoracic surgery. 3. Headache: Patient continues to report headache. Reports that it is secondary to cough. Patient reports that Tessalon Perles appears to not be as effective as it was yesterday. We'll continue patient on amitriptyline and Benadryl. Continue to monitor. 4. Chest pain: Patient reports chest pain associated with coughing. Has been reproducible to palpation. Obtaining EKG. 5. Nonproductive cough: Without hemoptysis, nausea, vomiting. Tessalon Perles appears to be alleviating cough. Sputum culture resulted yeast-like organisms. Have initiated nystatin swish and swallow. 6. Hypokalemia: Potassium was 3.6. Discontinue supplementation. Patient is aggressively diuresed with spironolactone and Lasix. We'll continue to monitor with daily BMP. 7. 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 Patient had negative fluid balance overnight of 360 mL. Patient continues to have abdominal distention, but abdomen is soft on evaluation today. CT of the abdomen and pelvis without contrast reported mild to moderate ascites with loculated pleural effusions noted on the right. Patient has agreed to discuss case with thoracic surgery to evaluate for possible drainage of the pleural effusion. Patient has had a net diuresis of 6 L thus far. 7. Diabetes mellitus: Patient's blood sugar this morning was 140. Remains on 66 units of insulin as well as sliding scale insulin and hypoglycemic protocol. 8. Neuropathy: Patient remains gabapentin. 9. Depression: Patient remains on Lexapro and amitriptyline. 10. Iron deficiency: Patient's hemoglobin and hematocrit are 10.8 and 32.3, respectively. Patient remains on ferrous sulfate 325 mg. 11. Chronic pain: Patient is on oxycodone and trazodone. DISPOSITION: CT abdomen and pelvis without contrast revealed multiloculated pleural effusions on the right. Patient has agreed to discuss with thoracic surgery about whether or not drainage of these pleural effusions are possibility. Currently remains on intravenous antibiotic therapy. We'll continue until we can discuss with thoracic surgery. Hypokalemia has improved. We'll continue with aggressive diuretic therapy at this time. Patient remains on ferrous sulfate for iron deficiency anemia. VS, I&O, 24H, Fishbone Vital Signs/I&O Vital Signs Date Time Temp Pulse Resp B/P (MAP) Pulse Ox O2 Delivery O2 Flow Rate FiO2 12/14/16 09:16 18 12/14/16 08:48 73 125/66 12/14/16 07:38 Room Air 12/14/16 06:00 99.5 91 I&O- Last 24 Hours up to 6 AM 12/14/16 06:00 Intake Total 1660 ml Output Total 1350 ml Balance 310 ml Laboratory Data 24H LABS Laboratory Tests 2 12/13/16 16:26: Bedside Glucose (Misc Panel) 196H 12/13/16 16:42: Vancomycin Level Trough 20.0 12/13/16 20:27: Bedside Glucose (Misc Panel) 259H 12/14/16 06:35: White Blood Count 4.3, Red Blood Count 3.39L, Hemoglobin 10.8L, Hematocrit 32.3L , Mean Corpuscular Volume 95.1, Mean Corpuscular Hemoglobin 31.7, Mean Corpuscular Hemoglobin Concent 33.4, Red Cell Distribution Width 13.9, Platelet Count 113L, Neutrophils (%) (Auto) 75.8H, Lymphocytes (%) (Auto) 14.9L, Monocytes (%) (Auto) 4.1, Eosinophils (%) (Auto) 2.4, Basophils (%) (Auto) 0.5, Neutrophils # (Auto) 3.3, Lymphocytes # (Auto) 0.7L, Monocytes # (Auto) 0.2, Eosinophils # (Auto) 0.1, Basophils # (Auto) 0.0, Large Unclassified Cells % 2.3 , Large Unclassified Cells # 0.1, Anion Gap 8, Glomerular Filtration Rate > 60.0 , Blood Urea Nitrogen 16, Creatinine 0.73, Sodium Level 138, Potassium Level 3.6 , Chloride Level 99, Carbon Dioxide Level 31, Calcium Level 7.6L, Aspartate Amino Transf (AST/SGOT) 37, Alanine Aminotransferase (ALT/SGPT) 29, Alkaline Phosphatase 554H, Total Bilirubin 0.9, Total Protein 6.1L, Albumin 1.8L, Magnesium Level 1.8, Albumin/Globulin Ratio 0.42L CBC/BMP Laboratory Tests 12/14/16 06:35 Red Blood Count 3.39 L, Mean Corpuscular Volume 95.1, Mean Corpuscular Hemoglobin 31.7, Mean Corpuscular Hemoglobin Concent 33.4, Red Cell Distribution Width 13.9, Neutrophils (%) (Auto) 75.8 H, Lymphocytes (%) (Auto) 14.9 L, Monocytes (%) (Auto) 4.1, Eosinophils (%) (Auto) 2.4, Basophils (%) ( Auto) 0.5, Neutrophils # (Auto) 3.3, Lymphocytes # (Auto) 0.7 L, Monocytes # ( Auto) 0.2, Eosinophils # (Auto) 0.1, Basophils # (Auto) 0.0, Calcium Level 7.6 L , Aspartate Amino Transf (AST/SGOT) 37, Alanine Aminotransferase (ALT/SGPT) 29, Alkaline Phosphatase 554 H, Total Bilirubin 0.9, Total Protein 6.1 L, Albumin 1.8 L Microbiology Microbiology 12/08/16 Blood Culture - Final, Complete NO GROWTH AFTER 5 DAYS 12/08/16 Blood Culture - Final, Complete NO GROWTH AFTER 5 DAYS 12/11/16 Gram Stain - Final, Complete 12/11/16 Sputum Culture - Final, Complete Yeast Like Organism 12/09/16 Respiratory Virus Panel (PCR) ([facility]) - Final, Complete 12/09/16 Urine Culture - Final, Complete JAY JAY BARBER-Kip December 14, 2016 12:11
[2016-12-14 14:00] VITALS: BP 105/56
[2016-12-14 19:33] VITALS: O2SAT 91
[2016-12-14] MEDS: AMITRIPTYLINE 25 MG TAB PO SCH (21:29)
[2016-12-14 22:00] VITALS: BP 99/55
[2016-12-14] MEDS: diphenhydrAMINE 50 MG CAP PO PRN (23:11)
[2016-12-15] MEDS: IPRATROPIUM 0.5MG/ALBUTEROL 2.5MG INH SOL UD 3ML (DUONEB)(J7620) NEB SCH ×4 (01:30→20:44)
[2016-12-15 01:31] VITALS: O2SAT 90
[2016-12-15] MEDS: SLF 3 ML SYR IV SCH ×3 (05:49→21:29)
[2016-12-15 06:00] VITALS: BP 116/61
[2016-12-15 06:57] LABS: BASO % 0.4 % (0.0-1.0); EOS # 0.2 K/mm3 (0.0-0.50); EOS % 2.6 % (0.0-3.0); LARGE UNSTAINED CELL # 0.2 K/mm3 (0.0-0.4); LARGE UNSTAINED CELL % 2.5 % (0.0-4.0); LYMPH % 12.6 % (24.0-44.0); MEAN CORPUSCULAR HEMOGLOBIN 31.6 pg (27.0-33.0); MEAN CORPUSCULAR HGB CONC 33.5 g/dl (32.0-36.5); MEAN CORPUSCULAR VOLUME 94.3 fl (80.0-96.0); MONO # 0.4 K/mm3 (0.0-0.8); MONO % 5.1 % (0.0-5.0); NEUTROPHILS # 5.3 K/mm3 (1.8-7.7); NEUTROPHILS % 76.7 % (36.0-66.0); PLATELET COUNT, AUTOMATED 176 k/mm3 (150-450); RED CELL DISTRIBUTION WIDTH 14.1 % (11.5-14.5); WHITE BLOOD COUNT 6.8 K/mm3 (4.0-10.0)
[2016-12-15] MEDS: HumaLOG INSULIN (NovoLOG) PER UNIT SC SCH ×4 (07:30→21:29)
[2016-12-15 07:32] LABS: ALBUMIN/GLOBULIN RATIO 0.43 (1.00-1.93); ALKALINE PHOSPHATASE 548 U/L (45-117); ALT/SGPT 28 U/L (12-78); ANION GAP 7 MEQ/L (8-16); AST/SGOT 32 U/L (15-37); BILIRUBIN,TOTAL 0.8 MG/DL (0.2-1.0); BLOOD UREA NITROGEN 14 MG/DL (7-18); CALCIUM LEVEL 8.6 MG/DL (8.8-10.2); CARBON DIOXIDE LEVEL 33 MEQ/L (21-32); CHLORIDE LEVEL 99 MEQ/L (98-107); CREATININE FOR GFR 0.68 MG/DL (0.55-1.02); GLOMERULAR FILTRATION RATE > 60.0 (>45); GLUCOSE, FASTING 75 MG/DL (80-110); MAGNESIUM LEVEL 1.9 MG/DL (1.8-2.4); POTASSIUM SERUM 3.3 MEQ/L (3.5-5.1); SODIUM LEVEL 139 MEQ/L (136-145); TOTAL PROTEIN 6.7 GM/DL (6.4-8.2)
--- NOTE | 2016-12-15 08:12 | IPNPDOC ---
Date Seen The patient was seen on 12/15/16. Progress Note SUBJECTIVE: Ms. Palma is a 61-year-old female who is examined at bedside this morning. Respiratory therapy is in the room upon evaluation this morning. They are about to administer nebulized treatment. Overnight her oxygen saturation dipped into the 80s requiring oxygen. Patient has remained on oxygen overnight and is currently on oxygen by nasal cannula. Patient still reports anterior, right sided pleuritic chest pain. She has no other complaints at this time. Discussed with patient the verbal conversation I had with thoracic surgery regarding possible drainage of patient's right-sided pleural effusion. Patient's pleural effusion will continue to recur and possible suggestions for relief include controlling patient's cirrhosis secondary to nonalcoholic steatohepatitis. Patient understands. Encouraged patient to continue ambulation. Patient is again hypokalemic this morning. Started patient on 40 mEq potassium chloride twice a day. Patient had a positive fluid balance overnight 530 mL. OBJECTIVE PHYSICAL EXAMINATION: VITAL SIGNS: Please see below. GENERAL: Obese female resting comfortably in hospital bed upon evaluation this morning, appears stated age, in no apparent distress, respiratory therapy started a nebulized treatment during evaluation HEENT: Atraumatic, normocephalic, PERRL, EOMI, oral mucosa appears pink and moist, nasal septum appears midline, poor dentition CARDIOVASCULAR: Regular rate and rhythm, normal S1 and S2, no murmur, rub, click appreciated RESPIRATORY: Clear to auscultation bilaterally, adequate inspiratory and expiratory airway excursion, no wheeze, rhonchi, crackles ABDOMINAL: Distended, soft, nontender, bowel sounds appreciated (hyperactive) EXTREMITIES: Moving all 4 extremities appropriately, upper and lower extremity pulses appreciated bilaterally, equal, symmetrical, +2/4, no edema appreciated NEUROLOGICAL: Cranial nerves II through XII appear grossly intact PSYCHOLOGICAL: Mood and affect appear appropriate LABORATORY DATA: Please see below. MICROBIOLOGY: Please see below. DVT prophylaxis ordered?: TEDs and sequentials; activity as tolerated ASSESSMENT AND PLAN: Ms. Palma is a 61-year-old female admitted for hospital associated pneumonia. PROBLEMS: 1. Hospital associated pneumonia: WBC 6.8 this morning. Patient remains afebrile. Patient's oxygenation decreased into the 80s overnight requiring oxygen by nasal cannula. Upon evaluation this morning patient is in the process of receiving a nebulized treatment from respiratory therapy. Have encouraged patient to continue with ambulation. Continue monitoring with daily labs. Give one time Lasix 40 mg. 2. Hypokalemia: Patient's potassium was 3.3 is morning. Have initiated potassium chloride 40 mEq twice a day. Patient had a positive fluid balance overnight 530 mL. Monitor daily BMP. 3. Multiloculated right pleural effusions: Verbally discussed case with thoracic surgery. Suggestions include controlling patient's cirrhosis secondary to nonalcoholic steatohepatitis which could likely be the etiology for patient' s persistent pleural effusions. Previous treatments for patient's pleural effusion include pleurodesis. Patient's current pleural effusion secondary to entrapment and unfortunately thoracentesis will only temporarily alleviate the fluid accumulation secondary to the entrapment. Secondary to patient's cirrhosis is likely underlying portal hypertension with controlling patient's chronic cirrhosis this may alleviate some of the portal hypertension and resulting pleural effusion. Discussed with patient and she understands. 4. Headache: Patient continues to report headache. Reports that it is secondary to cough. Patient reports that Tessalon Perles appears to not be as effective as it was yesterday. We'll continue patient on amitriptyline and Benadryl. Continue to monitor. 5. Chest pain: Patient reports continued pleuritic, reproducible anterior right- sided chest pain likely secondary to coughing and possibly underlying pleural effusion on the right. Continue with Tessalon Perles for cough. 6. Nonproductive cough: Sputum culture is positive for yeast. Treating with nystatin swish and swallow. Continue with Tessalon Perles. 7. 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 Patient had a positive fluid balance overnight 530 mL. Could consider increasing patient's Lasix and spironolactone. 8. Diabetes mellitus: Patient's blood sugar this morning was 75. Remains on 66 units of insulin as well as sliding scale insulin and hypoglycemic protocol. 9. Neuropathy: Patient remains on gabapentin. 10. Depression: Patient remains on Lexapro and amitriptyline. 11. Iron deficiency: Patient's hemoglobin and hematocrit are 12 and 35.7, respectively. Patient remains on ferrous sulfate 325 mg. 12. Chronic pain: Patient is on oxycodone and trazodone. DISPOSITION: Patient remains admitted to the medical surgical unit. Oxygenation dipped into the 80s overnight requiring oxygenation by nasal cannula. Patient was receiving a nebulized treatment upon evaluation this morning. Have encouraged continued ambulation. Give one-time dose of Lasix 40 mg. Patient had hypokalemia which is being supplemented with potassium chloride 40 mEq twice a day. White count is stable. Hemoglobin and hematocrit are stable. Patient had a positive fluid balance overnight of 530 mL. Verbally discussed persistent right- sided pleural effusion with thoracic surgery. Suggestions include controlling patient's underlying cirrhosis secondary to nonalcoholic steatohepatitis which could be causing the patient's pleural effusion secondary to portal hypertension related to cirrhosis. Have ordered a physical therapy evaluation. VS, I&O, 24H, [facility] Vital Signs/I&O Vital Signs Date Time Temp Pulse Resp B/P (MAP) Pulse Ox O2 Delivery O2 Flow Rate FiO2 12/15/16 06:12 Nasal Cannula 3.0 12/15/16 06:00 97.4 62 18 116/61 (79) 92 I&O- Last 24 Hours up to 6 AM 12/15/16 06:00 Intake Total 2730 ml Output Total 3000 ml Balance -270 ml Laboratory Data 24H LABS Laboratory Tests 2 12/14/16 11:47: Bedside Glucose (Misc Panel) 218H 12/14/16 16:27: Bedside Glucose (Misc Panel) 255H 12/14/16 20:24: Bedside Glucose (Misc Panel) 240H 12/15/16 06:36: White Blood Count 6.8, Red Blood Count 3.78L, Hemoglobin 12.0, Hematocrit 35.7L , Mean Corpuscular Volume 94.3, Mean Corpuscular Hemoglobin 31.6, Mean Corpuscular Hemoglobin Concent 33.5, Red Cell Distribution Width 14.1, Platelet Count 176, Neutrophils (%) (Auto) 76.7H, Lymphocytes (%) (Auto) 12.6L, Monocytes (%) (Auto) 5.1H, Eosinophils (%) (Auto) 2.6, Basophils (%) (Auto) 0.4 , Neutrophils # (Auto) 5.3, Lymphocytes # (Auto) 1.0L, Monocytes # (Auto) 0.4, Eosinophils # (Auto) 0.2, Basophils # (Auto) 0.0, Large Unclassified Cells % 2.5 , Large Unclassified Cells # 0.2, Anion Gap 7L, Glomerular Filtration Rate > 60.0, Blood Urea Nitrogen 14, Creatinine 0.68, Sodium Level 139, Potassium Level 3.3L, Chloride Level 99, Carbon Dioxide Level 33H, Calcium Level 8.6L, Aspartate Amino Transf (AST/SGOT) 32, Alanine Aminotransferase (ALT/SGPT) 28, Alkaline Phosphatase 548H, Total Bilirubin 0.8, Total Protein 6.7, Albumin 2.0L , Magnesium Level 1.9, Albumin/Globulin Ratio 0.43L CBC/BMP Laboratory Tests 12/15/16 06:36 Red Blood Count 3.78 L, Mean Corpuscular Volume 94.3, Mean Corpuscular Hemoglobin 31.6, Mean Corpuscular Hemoglobin Concent 33.5, Red Cell Distribution Width 14.1, Neutrophils (%) (Auto) 76.7 H, Lymphocytes (%) (Auto) 12.6 L, Monocytes (%) (Auto) 5.1 H, Eosinophils (%) (Auto) 2.6, Basophils (%) ( Auto) 0.4, Neutrophils # (Auto) 5.3, Lymphocytes # (Auto) 1.0 L, Monocytes # ( Auto) 0.4, Eosinophils # (Auto) 0.2, Basophils # (Auto) 0.0, Calcium Level 8.6 L , Aspartate Amino Transf (AST/SGOT) 32, Alanine Aminotransferase (ALT/SGPT) 28, Alkaline Phosphatase 548 H, Total Bilirubin 0.8, Total Protein 6.7, Albumin 2.0 L Microbiology Microbiology 12/08/16 Blood Culture - Final, Complete NO GROWTH AFTER 5 DAYS 12/08/16 Blood Culture - Final, Complete NO GROWTH AFTER 5 DAYS 12/11/16 Gram Stain - Final, Complete 12/11/16 Sputum Culture - Final, Complete Yeast Like Organism 12/09/16 Respiratory Virus Panel (PCR) ([facility]) - Final, Complete 12/09/16 Urine Culture - Final, Complete JAY JAY BARBER December 15, 2016 08:12
[2016-12-15 08:17] VITALS: BP 99/52
[2016-12-15] MEDS: NYSTATIN 500,000 U/5 ML SUSP UDC SS SCH ×4 (08:36→21:28)
[2016-12-15] MEDS: LACTOBACILLUS ACIDOPHILUS CAP (BACID) PO SCH ×3 (08:37→18:23)
[2016-12-15] MEDS: ASPIRIN 81 MG ENTERIC TAB PO SCH (08:37)
[2016-12-15] MEDS: ESCITALOPRAM OXALATE 10 MG TAB (LEXAPRO) PO SCH (08:38)
[2016-12-15] MEDS: BENZONATATE 100 MG CAP PO SCH ×2 (08:39→21:28)
[2016-12-15] MEDS: FERROUS SULFATE 325MG TAB PO SCH ×3 (08:39→21:28)
[2016-12-15] MEDS: SPIRONOLACTONE 50 MG TAB PO SCH ×2 (08:40→18:23)
[2016-12-15] MEDS: OMEPRAZOLE 20 MG CAP PO SCH (08:40)
[2016-12-15] MEDS: FUROSEMIDE 80 MG TAB PO SCH ×2 (08:40→18:23)
[2016-12-15] MEDS: GABAPENTIN 100 MG CAP PO SCH ×2 (08:41→21:28)
[2016-12-15] MEDS: MECLIZINE 25 MG TABLET PO SCH ×2 (08:41→21:28)
[2016-12-15] MEDS: POTASSIUM CHLORIDE 10 MEQ SR TABLET PO SCH ×2 (08:44→21:28)
[2016-12-15] MEDS: NADOLOL 20MG TABLET PO SCH (08:45)
[2016-12-15] MEDS: LEVEMIR (INSULIN DETEMIR) 1 UNITS/0.01ML SC SCH ×2 (09:00→21:29)
[2016-12-15] MEDS ORDERED: LEVEMIR (INSULIN DETEMIR) 1 UNITS/0.01ML SC ONE (09:30)
[2016-12-15] MEDS ORDERED: FUROSEMIDE 40 MG TAB PO ONE (11:15)
[2016-12-15 12:30] VITALS: BP 122/90
[2016-12-15 14:00] VITALS: BP 125/78
[2016-12-15] MEDS: oxyCODONE 5MG TAB PO PRN ×2 (14:28→21:34)
--- NOTE | 2016-12-15 17:55 | ECGEPIP ---
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
[2016-12-15] MEDS: AMITRIPTYLINE 25 MG TAB PO SCH (21:28)
[2016-12-15 22:00] VITALS: BP 113/60
[2016-12-16] VITALS (9 sets, daily range): BP systolic 98–112; BP diastolic 48–57
[2016-12-16] MEDS: IPRATROPIUM 0.5MG/ALBUTEROL 2.5MG INH SOL UD 3ML (DUONEB)(J7620) NEB SCH ×4 (01:14→19:19)
[2016-12-16] MEDS: SLF 3 ML SYR IV SCH ×3 (05:21→22:00)
[2016-12-16 06:40] LABS: MEAN CORPUSCULAR HGB CONC 32.6 g/dl (32.0-36.5); MEAN CORPUSCULAR VOLUME 95.4 fl (80.0-96.0); RED CELL DISTRIBUTION WIDTH 13.9 % (11.5-14.5); WHITE BLOOD COUNT 4.2 K/mm3 (4.0-10.0)
[2016-12-16 06:52] LABS: ANION GAP 6 MEQ/L (8-16); BLOOD UREA NITROGEN 17 MG/DL (7-18); CALCIUM LEVEL 8.3 MG/DL (8.8-10.2); CARBON DIOXIDE LEVEL 36 MEQ/L (21-32); CHLORIDE LEVEL 97 MEQ/L (98-107); CREATININE FOR GFR 0.77 MG/DL (0.55-1.02); GLOMERULAR FILTRATION RATE > 60.0 (>45); GLUCOSE, FASTING 135 MG/DL (80-110); POTASSIUM SERUM 3.9 MEQ/L (3.5-5.1); SODIUM LEVEL 139 MEQ/L (136-145)
[2016-12-16] MEDS: LACTOBACILLUS ACIDOPHILUS CAP (BACID) PO SCH ×3 (08:17→17:54)
[2016-12-16] MEDS: HumaLOG INSULIN (NovoLOG) PER UNIT SC SCH ×4 (08:17→20:34)
[2016-12-16] MEDS: oxyCODONE 5MG TAB PO PRN ×3 (08:20→23:51)
[2016-12-16] MEDS: NADOLOL 20MG TABLET PO SCH (09:00)
[2016-12-16] MEDS: LEVEMIR (INSULIN DETEMIR) 1 UNITS/0.01ML SC SCH ×3 (09:00→20:33)
[2016-12-16] MEDS: FUROSEMIDE 80 MG TAB PO SCH ×2 (09:11→16:13)
[2016-12-16] MEDS: POTASSIUM CHLORIDE 10 MEQ SR TABLET PO SCH ×2 (09:13→20:40)
[2016-12-16] MEDS: ASPIRIN 81 MG ENTERIC TAB PO SCH (09:14)
[2016-12-16] MEDS: ESCITALOPRAM OXALATE 10 MG TAB (LEXAPRO) PO SCH (09:15)
[2016-12-16] MEDS: FERROUS SULFATE 325MG TAB PO SCH ×3 (09:15→20:33)
[2016-12-16] MEDS: SPIRONOLACTONE 50 MG TAB PO SCH ×2 (09:16→16:12)
[2016-12-16] MEDS: GABAPENTIN 100 MG CAP PO SCH ×2 (09:16→20:33)
[2016-12-16] MEDS: OMEPRAZOLE 20 MG CAP PO SCH (09:17)
[2016-12-16] MEDS: MECLIZINE 25 MG TABLET PO SCH ×2 (09:17→20:33)
[2016-12-16] MEDS: BENZONATATE 100 MG CAP PO SCH ×2 (09:18→20:33)
[2016-12-16] MEDS: NYSTATIN 500,000 U/5 ML SUSP UDC SS SCH ×4 (09:18→20:33)
[2016-12-16] MEDS ORDERED: NS 1,000 ML IV ONE (09:45)
[2016-12-16] MEDS ORDERED: SODIUM CHLORIDE 0.9% 1000 ML IV ONE (10:00)
[2016-12-16] MEDS ORDERED: DEXTROMETHORPHAN 5 ML SYRUP (ROBITUSSIN PEDIATRIC COUGH) PO PRN (11:00)
--- NOTE | 2016-12-16 13:58 | IPNPDOC ---
Date Seen The patient was seen on 12/16/16. Progress Note SUBJECTIVE: Ms. Palma is a 61-year-old female who is examined at bedside this morning. Cleaning staff was present during evaluation. Patient continues to have cough, but with no fever or mucus production. She continues to have pleuritic anterior midline chest pain, likely secondary to the cough. Continue to encourage ambulation. Awaiting physical therapy to evaluate patient. Patient was slightly hypotensive this morning and 98/48. Recommended the patient receive 500 mL bolus. Patient has difficult intravenous access. Access was again obtained to provide bolus. Monitor blood pressures closely. Patient is off of oxygen and his breathing unlabored. OBJECTIVE PHYSICAL EXAMINATION: VITAL SIGNS: Please see below. GENERAL: Obese female resting comfortably in hospital bed upon evaluation this morning, well-developed, well-nourished, in no apparent distress HEENT: Atraumatic, normocephalic, PERRL, EOMI, oral mucosa appears pink and moist, nasal septum appears midline, dentition is in poor health CARDIOVASCULAR: Regular rate and rhythm, normal S1 and S2, no murmur, rub, click appreciated RESPIRATORY: Clear to auscultation bilaterally, adequate inspiratory and expiratory airway excursion, no wheeze, rhonchi, crackles appreciated ABDOMINAL: Distended, soft, nontender, bowel sounds appreciated EXTREMITIES: Moving all 4 extremities appropriately, no edema appreciated NEUROLOGICAL: Cranial nerves II through XII appear grossly intact PSYCHOLOGICAL: Mood and affect appear appropriate LABORATORY DATA: Please see below. MICROBIOLOGY: Please see below. DVT prophylaxis ordered?: TEDs and sequentials; activity as tolerated ASSESSMENT AND PLAN: Ms. Palma is a 61-year-old female admitted for hospital associated pneumonia. PROBLEMS: 1. Hospital associated pneumonia: WBC 4.2. Patient remains afebrile. Antibiotics have been discontinued. Continue to encourage ambulation. Patient is off of oxygen and his breathing unlabored. Continue monitoring daily labs. 2. Hypotension: Patient's blood pressures 98/48. Her initiated 500 mL bolus in order to improve fluid status. Have encouraged ambulation. 3. Hypokalemia: Potassium 3.9. Appears to have normalized. Patient remains on potassium chloride supplementation of 40 mEq twice a day. 4. 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 Patient negative fluid balance of 3390 mL overnight. Did receive one-time dose of Lasix 40 mg. Likely the patient' s abdominal distention secondary to patient's portal hypertension which can be contributing to patient's persistent pleural effusion. Previously discussed case with thoracic surgery and their suggestion is that patient consult with a ice cream truck driver and control cirrhosis. Continues to remain on spironolactone and Lasix. 5. Chest pain: Patient continues to have reproducible, pleuritic anterior midline chest pain. This could be secondary to patient's cough which could be result of an upper respiratory viral syndrome, postnasal drainage, or gastroesophageal reflux disease. Patient is on Tessalon Perles and Prilosec. 6. Nonproductive cough: Continue with Tessalon Perles. 7. Headache: Patient continues to report headache. Reports that it is secondary to cough. No acute vision changes appreciated. 8. Diabetes mellitus: Patient's blood sugar this morning was 135. Have adjusted patient's basal insulin to 33 units twice a day. Patient remains on sliding scale insulin as well as hypoglycemic protocol. 9. Neuropathy: Patient remains gabapentin. 10. Depression: Patient remains on Lexapro and amitriptyline. 11. Iron deficiency: Patient's hemoglobin and hematocrit are 11 and 33.9, respectively. Patient remains on ferrous sulfate 325 mg. 12. Chronic pain: Patient is on oxycodone and trazodone. DISPOSITION: Patient is admitted to the medical surgical unit. Patient is no longer on oxygen and is breathing unlabored. Awaiting physical therapy evaluation and treatment. Continue encouraging ambulation. Continues to have adequate urinary output. Had an episode of hypotension. Administer 500 mL bolus of fluid. Have adjusted patient's basal insulin to 33 units twice a day. Potential discharge in the next 24 hours. [facility] Vital Signs/I&O Vital Signs Date Time Temp Pulse Resp B/P (MAP) Pulse Ox O2 Delivery O2 Flow Rate FiO2 12/16/16 12:37 68 112/54 (73) 12/16/16 11:52 96.1 16 95 Nasal Cannula 3.0 I&O- Last 24 Hours up to 6 AM 12/16/16 05:59 Intake Total 1560 ml Output Total 4950 ml Balance -3390 ml Laboratory Data 24H LABS Laboratory Tests 2 12/15/16 16:48: Bedside Glucose (Misc Panel) 100 12/15/16 20:50: Bedside Glucose (Misc Panel) 260H 12/16/16 05:52: Anion Gap 6L, Glomerular Filtration Rate > 60.0, Blood Urea Nitrogen 17, Creatinine 0.77, Sodium Level 139, Potassium Level 3.9, Chloride Level 97L, Carbon Dioxide Level 36H, Calcium Level 8.3L 12/16/16 12:01: Bedside Glucose (Misc Panel) 147H CBC/BMP Laboratory Tests 12/16/16 05:52 Red Blood Count 3.55 L, Mean Corpuscular Volume 95.4, Mean Corpuscular Hemoglobin 31.0, Mean Corpuscular Hemoglobin Concent 32.6, Red Cell Distribution Width 13.9, Calcium Level 8.3 L Microbiology Microbiology 12/08/16 Blood Culture - Final, Complete NO GROWTH AFTER 5 DAYS 12/08/16 Blood Culture - Final, Complete NO GROWTH AFTER 5 DAYS 12/11/16 Gram Stain - Final, Complete 12/11/16 Sputum Culture - Final, Complete Yeast Like Organism 12/09/16 Respiratory Virus Panel (PCR) ([facility]) - Final, Complete 12/09/16 Urine Culture - Final, Complete JAY JAY BARBER December 16, 2016 13:58
[2016-12-16] MEDS: AMITRIPTYLINE 25 MG TAB PO SCH (20:33)
[2016-12-16] MEDS: traZODone 50 MG TAB PO PRN (20:33)
[2016-12-17] VITALS (8 sets, daily range): BP systolic 84–141; BP diastolic 42–67
[2016-12-17] MEDS: IPRATROPIUM 0.5MG/ALBUTEROL 2.5MG INH SOL UD 3ML (DUONEB)(J7620) NEB SCH ×2 (01:31→07:05)
[2016-12-17] MEDS: SLF 3 ML SYR IV SCH (05:17)
[2016-12-17 06:11] LABS: MEAN CORPUSCULAR HEMOGLOBIN 31.9 pg (27.0-33.0); MEAN CORPUSCULAR HGB CONC 32.6 g/dl (32.0-36.5); MEAN CORPUSCULAR VOLUME 97.9 fl (80.0-96.0); RED CELL DISTRIBUTION WIDTH 13.7 % (11.5-14.5); WHITE BLOOD COUNT 4.1 K/mm3 (4.0-10.0)
[2016-12-17 06:27] LABS: ANION GAP 8 MEQ/L (8-16); BLOOD UREA NITROGEN 17 MG/DL (7-18); CARBON DIOXIDE LEVEL 33 MEQ/L (21-32); CHLORIDE LEVEL 98 MEQ/L (98-107); CREATININE FOR GFR 0.82 MG/DL (0.55-1.02); GLOMERULAR FILTRATION RATE > 60.0 (>45); GLUCOSE, FASTING 190 MG/DL (80-110); POTASSIUM SERUM 4.5 MEQ/L (3.5-5.1); SODIUM LEVEL 139 MEQ/L (136-145)
[2016-12-17] MEDS: LACTOBACILLUS ACIDOPHILUS CAP (BACID) PO SCH (07:40)
[2016-12-17] MEDS: HumaLOG INSULIN (NovoLOG) PER UNIT SC SCH (07:40)
[2016-12-17] MEDS: BENZONATATE 100 MG CAP PO SCH (08:58)
[2016-12-17] MEDS: NYSTATIN 500,000 U/5 ML SUSP UDC SS SCH (08:58)
[2016-12-17] MEDS: NADOLOL 20MG TABLET PO SCH (08:59)
[2016-12-17] MEDS: ASPIRIN 81 MG ENTERIC TAB PO SCH (08:59)
[2016-12-17] MEDS: SPIRONOLACTONE 50 MG TAB PO SCH (08:59)
[2016-12-17] MEDS: FUROSEMIDE 80 MG TAB PO SCH (08:59)
[2016-12-17] MEDS: FERROUS SULFATE 325MG TAB PO SCH (08:59)
[2016-12-17] MEDS: POTASSIUM CHLORIDE 10 MEQ SR TABLET PO SCH (08:59)
[2016-12-17] MEDS: OMEPRAZOLE 20 MG CAP PO SCH (08:59)
[2016-12-17] MEDS: ESCITALOPRAM OXALATE 10 MG TAB (LEXAPRO) PO SCH (09:00)
[2016-12-17] MEDS: GABAPENTIN 100 MG CAP PO SCH (09:00)
[2016-12-17] MEDS: MECLIZINE 25 MG TABLET PO SCH (09:00)
[2016-12-17] MEDS: LEVEMIR (INSULIN DETEMIR) 1 UNITS/0.01ML SC SCH (09:00)
[2016-12-17] MEDS ORDERED: NS 500 ML IV ONE (10:45)
[2016-12-17] MEDS ORDERED: INSULADS SC (11:04)
[2016-12-17] MEDS: oxyCODONE 5MG TAB PO PRN (13:27)
--- NOTE | 2016-12-17 14:32 | DS.PDOC ---
Discharge Summary General Date of Admission Dec 08, 2016 at 16:39 Date of Discharge 12/17/2016 Primary Care Physician: ABI FLETCHER MD Attending Physician: CONCHA THURMAN MD Discharge Summary PROCEDURES PERFORMED DURING STAY: [None]. ADMITTING DIAGNOSES: 1. Healthcare associated pneumonia. 2. Chronic, right-sided pleural effusion. DISCHARGE DIAGNOSES: 1. Healthcare associated pneumonia. 2. Chronic, right-sided pleural effusion. 3. Hypokalemia. 4. Acute kidney injury. 5. Cirrhosis secondary to nonalcoholic steatohepatitis. COMPLICATIONS/CHIEF COMPLAINT: Pneumonia. HISTORY OF PRESENT ILLNESS: Ms. Palma is a 61 year old female with a PMHx of IDDM2, HTN, DLP, Chronic pleural effusions (s/p chest tube, s/p pigtail catheter, s/p pleurodysis), Cirrhosis (2/2 HICKS), Portal HTN, Esophageal varicies, Migraine headaches, Chronic vertigo, Anxiety, Depression, Obesity, Anemia, Leukopenia, Thrombocytopenia, Hx of C. diff and GERD. Patient reported that she had a non-productive cough for 1 week duration that has been worsening. She notes that she has baseline shortness of breath and may be slightly worse. She reports a fever today at Dr. Parker's office of 100.0, and chills since this weekend. She reports pleuritic chest pain that is worse with deep breaths and cough. She does not use any oxygen at home. She denies any PND, orthopnea or leg swelling. She has had a recent admission 1-2 weeks ago after she had fallen. She denies any nausea, vomiting, abdominal pain, constipation, diarrhea or dysuria. HOSPITAL COURSE: Patient was admitted to the hospital under the hospitalist service. Blood cultures (negative), sputum cultures (yeastlike organism), respiratory panel (negative), and lactic acid were obtained. Patient received Levaquin in the ED and was adjusted to meropenem and vancomycin was admitted. During hospitalization patient alternated between requiring oxygenation by nasal cannula and breathing unlabored on room air. Pleural effusion likely secondary to patient's underlying cirrhosis related to nonalcoholic steatohepatitis. Ultrasound obtain secondary to patient's elevated bilirubin. Report below. Patient was started on gentle fluid rehydration secondary to elevated creatinine. Patient's furosemide was held secondary to elevated creatinine. Other chronic medical conditions were adequately managed. Patient's diuretics were reinitiated secondary to acute kidney injury improving and eventually resolving. Diuretics were added secondary to patient's worsening of her right-sided pleural effusion aggressively diuresed during her admission. Patient developed cough, subsequently treated with Tessalon Perles. Also developed hypokalemia for which patient was supplemented. Patient had history of headaches and also developed a headache during admission. Benadryl was increased. Patient remained on other chronic medications. CT of the abdomen and pelvis was performed secondary to patient's subjective worsening abdominal pain and distention. Report is below. Decreased patient's insulin to half normal dose secondary to low blood glucose levels. Patient to continue taking long- acting insulin 33 units twice a day and to check fingersticks after discharge to determine if she needs to increase her dose back to the full regimen. Discontinue antibiotics. Patient improved throughout stay and was stable at time of discharge. DISCHARGE MEDICATIONS: Please see below. ALLERGIES: Please see below. PHYSICAL EXAMINATION ON DISCHARGE: VITAL SIGNS: Please see below. GENERAL: Obese female who appears well-nourished and well-developed and in no apparent distress HEENT: Atraumatic, normocephalic, PERRL, EOMI, oral mucosa appears pink and moist, nasal septum appears benign, dentition is poor NECK: Soft, supple, trachea midline, no lymphadenopathy CARDIOVASCULAR EXAMINATION: Regular rate and rhythm, normal S1 and S2, no murmur , rub, click RESPIRATORY EXAMINATION: Clear to auscultation bilaterally, adequate inspiratory and expiratory airway excursion, no wheeze, rhonchi, crackles ABDOMINAL EXAMINATION: Round, soft, nontender, mildly distended, bowel sounds appreciated EXTREMITIES: Moving all 4 extremities appropriately, upper and lower pulses appreciated bilaterally, equal, symmetrical, +2/4 SKIN: Without acute rashes and lesions, no jaundice appreciated, warm, dry, intact NEUROLOGICAL EXAMINATION: Cranial nerves II through XII appear grossly intact PSYCHIATRIC EXAMINATION: Mood and affect appear appropriate LABORATORY DATA: Please see below. IMAGING: Abdominal ultrasound IMPRESSION: Multiple small gallstones in the gallbladder. Diffuse gallbladder wall thickening. No biliary dilatation or free fluid. CT of the chest without contrast IMPRESSION: 1. Increasing right pleural effusion as described above. 2. Abnormal lung field findings as described above. Certainly, I cannot rule out the possibility of acute infectious etiology superimposed upon chronic change. 3. Upper abdomen findings as described above. The micronodular surface to the liver and the concomitant splenomegaly might be secondary to cirrhosis. I have no history on the patient. CT of the abdomen and pelvis without contrast Impression: 1. Right-sided pleural thickening with moderate multiloculated right pleural effusion and basilar atelectasis. 2. Cirrhosis with portal hypertension including mild to moderate ascites minimally improved from prior examination, splenomegaly and cholelithiasis. 3. No new acute intra-abdominal or pelvic pathology appreciated. PROGNOSIS: Stable ACTIVITY: Activity as tolerated. DIET: Consistent carbohydrate. DISCHARGE PLAN: See discharge instructions. DISPOSITION: Home. DISCHARGE INSTRUCTIONS: 1. Maintain fluid restriction of 1800 mL/day. 2. Monitor fingerstick blood glucose levels and if consistently elevated adjust Lantus from 33 units twice a day to regular dose of 66 units twice a day. ITEMS TO FOLLOWUP ON ON OUTPATIENT: 1. Dr. Fletcher, primary care provider. 2. Dr. Saba, gastroenterology and hepatology. DISCHARGE CONDITION: Stable. TIME SPENT ON DISCHARGE: Greater than 30 minutes. Vital Signs/I&Os Vital Signs Date Time Temp Pulse Resp B/P (MAP) Pulse Ox O2 Delivery O2 Flow Rate FiO2 12/17/16 13:27 18 12/17/16 12:00 97.7 62 98/52 (67) 96 Room Air 12/17/16 10:00 1.0 I&O- Last 24 Hours up to 6 AM 12/17/16 05:59 Intake Total 1320 ml Output Total 2600 ml Balance -1280 ml Laboratory Data Labs 24H Laboratory Tests 2 12/16/16 17:16: Bedside Glucose (Misc Panel) 234H 12/16/16 20:24: Bedside Glucose (Misc Panel) 184H 12/17/16 05:45: Anion Gap 8, Glomerular Filtration Rate > 60.0, Blood Urea Nitrogen 17, Creatinine 0.82, Sodium Level 139, Potassium Level 4.5, Chloride Level 98, Carbon Dioxide Level 33H, Calcium Level 8.0L, Ammonia 32 12/17/16 07:32: Bedside Glucose (Misc Panel) 154H 12/17/16 11:49: Bedside Glucose (Misc Panel) 151H CBC/BMP Laboratory Tests 12/17/16 05:45 Red Blood Count 3.36 L, Mean Corpuscular Volume 97.9 H, Mean Corpuscular Hemoglobin 31.9, Mean Corpuscular Hemoglobin Concent 32.6, Red Cell Distribution Width 13.7, Calcium Level 8.0 L FSBS Laboratory Tests Test 12/16/16 17:16 12/16/16 20:24 12/17/16 07:32 12/17/16 11:49 Range/Units Bedside Glucose (Misc Panel) 234 184 154 151 80-115 MG/DL Microbiology Microbiology 12/08/16 Blood Culture - Final, Complete NO GROWTH AFTER 5 DAYS 12/08/16 Blood Culture - Final, Complete NO GROWTH AFTER 5 DAYS 12/11/16 Gram Stain - Final, Complete 12/11/16 Sputum Culture - Final, Complete Yeast Like Organism 12/09/16 Respiratory Virus Panel (PCR) ([facility]) - Final, Complete 12/09/16 Urine Culture - Final, Complete Discharge Medications Scheduled (Calcium 500 +D3 500-600 mg-Unit) 1 Tab Tab, 1 TAB PO DAILY, (Reported) Amitriptyline HCl (Amitriptyline HCl) 25 Mg Tab, 25 MG PO QHS, (Reported) Aspirin (Aspirin EC) 81 Mg Tabec, 81 MG PO DAILY, (Reported) Escitalopram Oxalate (Lexapro) 20 Mg Tab, 20 MG PO DAILY, (Reported) Esomeprazole Magnesium Trihydr (Nexium) 40 Mg Cap, 40 MG PO DAILY, (Reported) Ferrous Sulfate (Ferrous Sulfate) 325 Mg Tab, 325 MG PO TID, (Reported) Furosemide (Furosemide) 20 Mg Tab, 60 MG PO BID, (Reported) Gabapentin (Neurontin) 100 Mg Cap, 100 MG PO BID, (Reported) Insulin Aspart (Novolog) 100 U/Ml Inj, 1 DOSE SC ACHS, (Reported) PER SLIDING SCALE Insulin Glargine (Lantus) 100 Unit/Ml Inj, 33 UNIT SC BID Meclizine HCl (Meclizine HCl) 25 Mg Tab, 25 MG PO BID, (Reported) Nadolol (Nadolol) 40 Mg Tab, 40 MG PO DAILY, (Reported) Spironolactone (Spironolactone) 50 Mg Tab, 50 MG PO BID, (Reported) Scheduled PRN Diphenhydramine HCl (Benadryl Allergy) 25 Mg Cap, 25 MG PO QHS PRN for ITCHING/ SWELLING, (Reported) Oxycodone HCl (Oxycodone HCl) 5 Mg Tab, 5 MG PO Q6H PRN for PAIN, (Reported) Trazodone HCl (Trazodone HCl) 50 Mg Tab, 50 MG PO QHS PRN for SLEEP, (Reported) Allergies Coded Allergies: TAPE (Verified Allergy, Mild, 10/20/16) Acetaminophen (Unverified Adverse Reaction, Intermediate, LIVER PROBLEM, ) Candesartan (Unverified Adverse Reaction, Intermediate, CHEST PAIN, ) Hydrochlorothiazide (Unverified Adverse Reaction, Intermediate, CHEST PAIN , 11/22/16) Ibuprofen (Unverified Adverse Reaction, Intermediate, LIVER PROBLEM, ) JAY JAY BARBER OGME-I December 17, 2016 14:32
== END 2016-12-17 13:20 | disposition home or self-care (01) | DRG 194 ==
LOC: M ED 15:07 → M ED INP 16:39 → M PCU 12-09 17:47 → M MS5PR 12-12 20:42
PROVIDERS: ADMIT Internal Medicine; ATTEND Internal Medicine
DX: J18.9 Pneumonia, unspecified organism (principal); K76.6 Portal hypertension; I85.10 Secondary esophageal varices without bleeding; J90 Pleural effusion, not elsewhere classified; J98.11 Atelectasis; Z68.41 Body mass index [BMI] 40.0-44.9, adult; N17.9 Acute kidney failure, unspecified; E11.40 Type 2 diabetes mellitus with diabetic neuropathy, unspecified; I10 Essential (primary) hypertension; E78.5 Hyperlipidemia, unspecified; K75.81 Nonalcoholic steatohepatitis (NASH); K74.60 Unspecified cirrhosis of liver; G43.709 Chronic migraine without aura, not intractable, without status migrainosus; F41.9 Anxiety disorder, unspecified; R42 Dizziness and giddiness; F32.9 Major depressive disorder, single episode, unspecified; E61.1 Iron deficiency; E66.9 Obesity, unspecified; D64.9 Anemia, unspecified; E83.42 Hypomagnesemia; D72.819 Decreased white blood cell count, unspecified; E87.6 Hypokalemia; D69.6 Thrombocytopenia, unspecified; I95.9 Hypotension, unspecified; K21.9 Gastro-esophageal reflux disease without esophagitis; Z79.82 Long term (current) use of aspirin; Z79.4 Long term (current) use of insulin; Z79.899 Other long term (current) drug therapy; Z88.6 Allergy status to analgesic agent; Z88.8 Allergy status to other drugs, medicaments and biological substances; Z91.048 Other nonmedicinal substance allergy status; Y95 Nosocomial condition; Z79.891 Long term (current) use of opiate analgesic

== ENCOUNTER → 2016-12-08 | Outpatient (CLI) | payer OTHER ==
[~2016-12-08] MED LIST changes: +AMIT25TA PO; +ASPI81TAEC PO; +BENA25CA4 PO; +CALC1TAB42 PO; +GABA-279; +GABA-279 PO; +IBUP60TA PO; +LIDO5TD TD; +NEUR100C PO; +SPIR50TA2 PO
--- NOTE | 2016-12-08 13:36 | REP ---
CHEST, TWO VIEWS: HISTORY: Pleural effusion. COMPARISON: 11/21/2016. Increased density present in the right lower lobe consistent with atelectasis or infiltrate. A right pleural effusion is present that is increased compared to the previous study. The left lung is clear. The heart is normal in size. The pulmonary vasculature is normal in appearance. The bony structure is intact. IMPRESSION: 1. Right lower lobe atelectasis or infiltrate increased compared to the previous study. 2. Right pleural effusion increased compared to the previous study. Signed by Raymond Holley MD 12/08/2016 01:43 P
== END ==
LOC: M SMT 11:12
PROVIDERS: ATTEND Thoracic Surgery (Cardiothoracic Vascular Surgery)
DX: R91.8 Other nonspecific abnormal finding of lung field (principal); J91.8 Pleural effusion in other conditions classified elsewhere

== ENCOUNTER 2017-02-03 21:43 | Observation (INO) | payer OTHER ==
[~2017-02-03] VITALS: Ht 152.4 cm; Wt 109.2 kg
[~2017-02-03 21:43] MED LIST changes: +BENA25CA4 PO; +CALC1TAB42 PO; +FERR1TAB8 PO; -FERR325T PO; +GABA-279; +IBUP1TAB6 PO; -IBUP60TA PO; +INSULADS SC; +NEUR100C PO; -OXYC1SOL PO; +OXYC1SOL3 PO; +PERC5TAB12 PO; -PERC5TAB6 PO; +SPIR50TA2 PO; +TRAZ50TA11 PO; -TRAZ50TA4 PO; -ZONE100C4 PO; +ZONE1CAP PO
[2017-02-03] MEDS ORDERED: NS 1,000 ML IV ONE (22:45)
--- NOTE | 2017-02-03 23:10 | REPUSA ---
CT of the head Clinical history: syncope. Technique: Multiple axial CT images were obtained through the head without administration of contrast . Findings: The ventricles and sulci are symmetric bilaterally. There is no evidence of acute hemorrhag e or infarct. There is no midline shift, mass effect, or extra-axial fluid collection. The osseous st ructures are unremarkable. The visualized paranasal sinuses and mastoid air cells are clear. Impression: Negative study.
--- NOTE | 2017-02-03 23:20 | REPUSA ---
CT of the cervical spine Clinical history: syncope. Technique: Multiple axial CT images were obtained through the cervical spine without administration o f contrast. Coronal and sagittal 3-D reconstructed images were also obtained. Comparison: None. Findings: The cervical vertebral bodies are in satisfactory positioning and alignment. No fractures or dislocat ions are demonstrated. The odontoid process is intact. Intervertebral disc spaces are well-maintained . There is no evidence of facet subluxation. The neural foramen appear grossly patent. The cervical c ranial junction is intact. The cervical spinal canal demonstrates normal caliber and contour without evidence of spinal stenosis. The surrounding soft tissues are within normal limits. Impression: Unremarkable CT examination of the cervical spine.
[2017-02-03 23:32] LABS: BASO % 0.5 % (0.0-1.0); EOS # 0.1 K/mm3 (0.0-0.50); EOS % 2.5 % (0.0-3.0); LARGE UNSTAINED CELL # 0.1 K/mm3 (0.0-0.4); LARGE UNSTAINED CELL % 1.5 % (0.0-4.0); LYMPH # 0.7 K/mm3 (1.5-4.5); LYMPH % 21.9 % (24.0-44.0); MEAN CORPUSCULAR HEMOGLOBIN 33.1 pg (27.0-33.0); MEAN CORPUSCULAR HGB CONC 33.1 g/dl (32.0-36.5); MONO # 0.2 K/mm3 (0.0-0.8); MONO % 5.9 % (0.0-5.0); NEUTROPHILS # 2.1 K/mm3 (1.8-7.7); NEUTROPHILS % 67.7 % (36.0-66.0); RED CELL DISTRIBUTION WIDTH 14.9 % (11.5-14.5); WHITE BLOOD COUNT 3.1 K/mm3 (4.0-10.0)
[2017-02-03 23:33] LABS: PLATELET COUNT, AUTOMATED 78 k/mm3 (150-450)
[2017-02-03 23:37] LABS: INR 1.15
[2017-02-03 23:52] LABS: ANION GAP 8 MEQ/L (8-16); BLOOD UREA NITROGEN 17 MG/DL (7-18); CALCIUM LEVEL 8.4 MG/DL (8.8-10.2); CARBON DIOXIDE LEVEL 28 MEQ/L (21-32); CHLORIDE LEVEL 107 MEQ/L (98-107); CREATININE FOR GFR 0.93 MG/DL (0.55-1.02); FREE T4 1.22 NG/DL (0.76-1.46); GLOMERULAR FILTRATION RATE > 60.0 (>45); GLUCOSE, FASTING 182 MG/DL (80-110); MAGNESIUM LEVEL 1.8 MG/DL (1.8-2.4); POTASSIUM SERUM 3.3 MEQ/L (3.5-5.1); SODIUM LEVEL 143 MEQ/L (136-145)
[2017-02-04] MEDS ORDERED: NS 500 ML IV ONE
[2017-02-04] MEDS ORDERED: INSULADS SC (00:17)
[2017-02-04] MEDS: NS 1,000 ML IV SCH ×3 (01:07→20:50)
[2017-02-04 02:37] VITALS: BP 112/59
[2017-02-04] MEDS ORDERED: POTASSIUM CHLORIDE 10 MEQ SR TABLET PO ONE ×2 (04:30)
[2017-02-04] MEDS ORDERED: GLUCOSE 4 GM CHEW TABLET PO PRN (04:30)
[2017-02-04] MEDS ORDERED: DEXTROSE 50% 50 ML SYRINGE IV PRN (04:30)
[2017-02-04] MEDS ORDERED: GLUCAGON FOR INJ 1 MG VIAL (J1610) SC PRN (04:30)
[2017-02-04 04:47] VITALS: BP 113/59
--- NOTE | 2017-02-04 04:49 | HPEPDOC ---
General Date of Admission Feb 03, 2017 at 23:36 Primary Care Physician: ABI FLETCHER MD Attending Physician: SNEHAL APARICIO MD Chief Complaint The patient is a 61-year-old female admitted with a reason for visit of Syncope. Source: Patient Exam Limitations: No limitations Timing/Duration: Momentarily, Intermittent Severity: Mild Associated Symptoms: Weakness, Hypotension, Dizziness History of Present Illness 61-year-old female, history of cirrhosis, hypertension, diverticulitis, presented with multiple episodes of syncope. She was walking by herself and then she passed out. Her son called EMS. She had episodes of hypotension in the past. When she came to the emergency room. She was again found to be hypotensive Home Medications Scheduled (Calcium 500 +D3 500-600 mg-Unit) 1 Tab Tab, 1 TAB PO DAILY, (Reported) Amitriptyline HCl (Amitriptyline HCl) 25 Mg Tab, 25 MG PO QHS, (Reported) Aspirin (Aspirin EC) 81 Mg Tabec, 81 MG PO DAILY, (Reported) Escitalopram Oxalate (Lexapro) 20 Mg Tab, 20 MG PO DAILY, (Reported) Esomeprazole Magnesium Trihydr (Nexium) 40 Mg Cap, 40 MG PO DAILY, (Reported) Ferrous Sulfate (Ferrous Sulfate) 325 Mg Tab, 325 MG PO BID, (Reported) Furosemide (Furosemide) 20 Mg Tab, 60 MG PO BID, (Reported) Gabapentin (Neurontin) 100 Mg Cap, 100 MG PO DAILY, (Reported) Insulin Aspart (Novolog) 100 U/Ml Inj, 1 DOSE SC ACHS, (Reported) PER SLIDING SCALE Insulin Glargine (Lantus) 100 Unit/Ml Inj, 66 UNIT SC BID, (Reported) Meclizine HCl (Meclizine HCl) 25 Mg Tab, 25 MG PO BID, (Reported) Nadolol (Nadolol) 40 Mg Tab, 40 MG PO DAILY, (Reported) Spironolactone (Spironolactone) 50 Mg Tab, 50 MG PO BID, (Reported) Trazodone HCl (Trazodone HCl) 50 Mg Tab, 50 MG PO QHS, (Reported) Scheduled PRN Diphenhydramine HCl (Benadryl Allergy) 25 Mg Cap, 25 MG PO QHS PRN for ITCHING/ SWELLING, (Reported) Allergies Coded Allergies: TAPE (Verified Allergy, Mild, 02/03/17) Acetaminophen (Unverified Adverse Reaction, Intermediate, LIVER PROBLEM, ) Candesartan (Unverified Adverse Reaction, Intermediate, CHEST PAIN, ) Hydrochlorothiazide (Unverified Adverse Reaction, Intermediate, CHEST PAIN , 02/03/17) Ibuprofen (Unverified Adverse Reaction, Intermediate, LIVER PROBLEM, ) Past Medical History Medical History Liver cirrhosis hypertension, diabetes mellitus Surgical History Hernia repair, appendectomy, elbow surgery, shoulder surgery Family History Significant Family History: No pertinent family hx Social History * Smoker: Denies Alcohol: Denies Drugs: denies Recent Travel/Sick Contacts: Denies: Recent travel, Recent sick contacts Psychosocial History: No pertinent psych hx Review of Symptoms Constitutional: Reports: Lethargy, Denies: Chills, Fever, Night Sweats Eyes: Denies: Pain, Vision change ENT: Denies: Head Aches, Ear Pain, Dysphagia Skin: Denies: Rash, Lesions, Breakdown Pulmonary: Denies: Dyspnea, Cough Cardiovascular: Reports: Lt Headedness, Denies: Chest Pain, Palpitations, Orthopnea, Paroxysmal Noc. Dyspnea Gastrointestinal: Denies: Nausea, Vomiting, Abdominal Pain, Diarrhea Genitourinary: Denies: Dysuria, Frequency, Incontinence, Retention Hematologic: Denies: Bruising, Bleeding Excessively Musculoskeletal: Denies: Neck Pain, Back Pain, Joint Pain, Muscle Pain, Spasms Neurological: Denies: Weakness, Numbness, Change in speech, Confusion Psych: Reports: Mood Normal, Denies: Depression, Memory Issues Physical Examination General Exam: Positive: Alert, No Acute Distress Eye Exam: Positive: PERRLA, Conjunctiva & lids normal, EOMI, Negative: Sclera icteric ENT Exam: Positive: Atraumatic, Mucous membr. moist/pink, Pharynx Normal Neck Exam: Positive: Supple, Negative: JVD, thyromegaly Chest Exam: Positive: Clear to auscultation, Normal air movement Heart Exam: Positive: Rate Normal, Regular Rhythm, Normal S1, Normal S2, Negative: Murmurs, Rubs Telemetry: Positive: No significant arrhythmia Abdomen Exam: Positive: Normal bowel sounds, Soft, Negative: Tenderness, Hepatospenomegaly Extremity Exam: Positive: Normal pulses, Negative: Clubbing, Cyanosis, Edema Skin Exam: Positive: Nl turgor and temperature, Negative: Breakdown, Lesion Neuro Exam: Positive: Normal Speech, Cranial Nerves 3-12 NL, Reflexes 2+ Psych Exam: Positive: Mental status NL, Mood NL, Oriented x 3 Vital Signs Vital Signs Date Time Temp Pulse Resp B/P (MAP) Pulse Ox O2 Delivery O2 Flow Rate FiO2 02/04/17 02:37 99.1 66 18 112/59 (76) 96 Room Air Laboratory Data Labs 24H Laboratory Tests 2 02/03/17 23:07: White Blood Count 3.1L, Red Blood Count 3.35L, Hemoglobin 11.1L, Hematocrit 33.5L, Mean Corpuscular Volume 100.0H, Mean Corpuscular Hemoglobin 33.1H, Mean Corpuscular Hemoglobin Concent 33.1, Red Cell Distribution Width 14.9H, Platelet Count 78L, Neutrophils (%) (Auto) 67.7H, Lymphocytes (%) (Auto) 21.9L, Monocytes (%) (Auto) 5.9H, Eosinophils (%) (Auto) 2.5, Basophils (%) (Auto) 0.5 , Neutrophils # (Auto) 2.1, Lymphocytes # (Auto) 0.7L, Monocytes # (Auto) 0.2, Eosinophils # (Auto) 0.1, Basophils # (Auto) 0.0, Large Unclassified Cells % 1.5 , Large Unclassified Cells # 0.1, Prothrombin Time 14.8H, Prothromb Time International Ratio 1.15, Activated Partial Thromboplast Time 25.6L, Anion Gap 8 , Glomerular Filtration Rate > 60.0, Lactic Acid Level 1.7, Blood Urea Nitrogen 17, Creatinine 0.93, Sodium Level 143, Potassium Level 3.3L, Chloride Level 107 , Carbon Dioxide Level 28, Calcium Level 8.4L, Magnesium Level 1.8, Total Creatine Kinase 27, Creatine Kinase MB 1.0, Creatine Kinase MB Relative Index 3.70, Troponin I < 0.02, Thyroid Stimulating Hormone (TSH) 0.916, Free Thyroxine 1.22 02/03/17 23:15: Bedside Glucose (Misc Panel) 211H CBC/BMP Laboratory Tests 02/03/17 23:07 Red Blood Count 3.35 L, Mean Corpuscular Volume 100.0 H, Mean Corpuscular Hemoglobin 33.1 H, Mean Corpuscular Hemoglobin Concent 33.1, Red Cell Distribution Width 14.9 H, Neutrophils (%) (Auto) 67.7 H, Lymphocytes (%) (Auto ) 21.9 L, Monocytes (%) (Auto) 5.9 H, Eosinophils (%) (Auto) 2.5, Basophils (%) (Auto) 0.5, Neutrophils # (Auto) 2.1, Lymphocytes # (Auto) 0.7 L, Monocytes # ( Auto) 0.2, Eosinophils # (Auto) 0.1, Basophils # (Auto) 0.0, Calcium Level 8.4 L Microbiology Microbiology 02/03/17 Blood Culture, Received Pending 02/03/17 Blood Culture, Received Pending Assessment/Plan 61-year-old female, history of hypertension, diabetes mellitus, liver cirrhosis , presented with the recurrent syncope Problems (1) Hypokalemia Problem Text: , Potassium 3.3, repeated with oral potassium (2) HTN (hypertension) Status: Chronic Problem Text: This and was hypotensive on arrival. Will hold Aldactone and nadolol (3) Syncope Status: Acute Problem Text: Likely due to hypodense and really get a cut order hand, carotid Doppler trending troponin Plan / VTE VTE Prophylaxis Ordered?: Yes Plan IVF: Initiate Diet: Continue Current Activity: Continue Current Therapy: PT, OT Anticipated Discharge: Home ROQUE STEWART MD Feb 04, 2017 04:49
[2017-02-04] MEDS: traZODone 50 MG TAB PO SCH ×2 (04:58→20:49)
[2017-02-04] MEDS: AMITRIPTYLINE 25 MG TAB PO SCH ×2 (05:35→20:49)
--- NOTE | 2017-02-04 07:44 | ECGEPIP ---
Stationary ECG Study [facility] - ED Test Date: 2017-02-03 Pat Name: SAROJ JOHNSON Department: Room: - Gender: F Band Tumbler: NICKOLAS : 1955 Requested By: ILSA Waterman Order Number: [id number] Reading MD: Jay Flores Measurements Intervals [place] Rate: 69 P: 58 VA: 137 QRS: -1 QRSD: 97 T: 48 QT: 435 QTc: 469 Interpretive Statements SINUS RHYTHM NONSPECIFIC T-WAVE ABNORMALITY Electronically Signed On 02-04-2017 7:44:20 EDT by Jay Flores
[2017-02-04 08:00] VITALS: BP 89/52
--- NOTE | 2017-02-04 08:59 | REP ---
AP SUPINE CHEST: 02/03/2017. CLINICAL HISTORY: Syncope. COMPARISON: CT chest 12/09/2016, chest x-ray 12/08/2016. FINDINGS: Supine chest with elevation of the right diaphragm and volume loss in that right hemithorax. Lateral pleural thickening and blunting of right CP angle again seen, scar versus effusion. I do not see hazy asymmetric densities in the chest wall to suggest layering effusion on this exam. The left lung is well inflated and appears clear. The heart is not enlarged for portable technique. No abnormal widening of the mediastinum. Airway is intact. IMPRESSION: 1. Elevated right diaphragm with some underlying lateral pleural thickening or fluid and blunting of CP angle. Changes of COPD without dense consolidation or parenchymal mass. 2. No cardiomegaly or louann edema. No widening of the mediastinum. Signed by Isaac Christina MD 02/04/2017 07:46 P
[2017-02-04] MEDS ORDERED: FUROSEMIDE 20 MG TAB PO SCH (09:00)
--- NOTE | 2017-02-04 09:00 | REP ---
AP PELVIS AND LEFT HIP: 02/03/2017 CLINICAL HISTORY: Trauma. COMPARISON: CT abdomen and pelvis 12/13/2016. FINDINGS: The lower lumbar spine, sacrum and pelvic ring intact. Minor degenerative change in the left SI joint with the left sacral ala and foramina intact. Hip joint spaces symmetric with only minimal rim osteophyte, acetabular roof. Pubic rami and symphysis pubis, hips and proximal femoral shafts are all unremarkable. Dedicated views of the hip show no focal bone lesion, soft tissue calcification, avulsion or other abnormality. IMPRESSION: 1. Minor degenerative changes of the hips and left SI joint without fracture, avulsion, focal bone lesion or other acute finding. Signed by Isaac Christina MD 02/04/2017 07:45 P
--- NOTE | 2017-02-04 09:07 | REP ---
LEFT FEMUR: 02/03/2017. CLINICAL HISTORY: Trauma. COMPARISON: Left hip series this date. FINDINGS: Four views are provided to encompass the entirety of the left femur. The hip shows minimal degenerative change without fracture. The femoral shaft is also without fracture. Visualized portion of the distal femur at the knee is unremarkable. There is a bony fabella behind the lateral femoral condyle as anatomic variant. No joint effusion. IMPRESSION: 1. Negative left femur series for fracture or other acute bony finding. Signed by Isaac Christina MD 02/04/2017 07:47 P
[2017-02-04] MEDS: LEVEMIR (INSULIN DETEMIR) 1 UNITS/0.01ML SC SCH ×2 (09:25→21:09)
[2017-02-04] MEDS: PANTOPRAZOLE 40MG TAB (PROTONIX) PO SCH (09:25)
[2017-02-04] MEDS: ESCITALOPRAM OXALATE 10 MG TAB (LEXAPRO) PO SCH (09:25)
[2017-02-04] MEDS: MECLIZINE 25 MG TABLET PO SCH ×2 (09:25→20:49)
[2017-02-04] MEDS: FERROUS SULFATE 325MG TAB PO SCH ×2 (09:25→20:50)
[2017-02-04] MEDS: GABAPENTIN 100 MG CAP PO SCH (09:25)
[2017-02-04] MEDS: HumaLOG INSULIN (NovoLOG) PER UNIT SC SCH ×3 (09:26→16:34)
--- NOTE | 2017-02-04 10:23 | IPNPDOC ---
Subjective Date Seen The patient was seen on 02/04/17. Subjective Chief Complaint/HPI The patient is a 61-year-old female admitted with a reason for visit of Syncope. Events since last encounter Feels "top heavy" has been struggling for several days with vertigo and pre- syncope, no cough, no chest pain, no fever, no dysuria/frequency/urgency. No recent med changes, uses walker/cane/nothing as an assistive aid depending on the day Constitutional: Denies: Chills, Fever Pulmonary: Denies: Dyspnea, Cough Cardiovascular: Denies: Chest Pain, Palpitations Gastrointestinal: Denies: Nausea, Vomiting, Abdominal Pain Objective Physical Examination General Exam: Positive: Alert, Cooperative, No Acute Distress Eye Exam: Negative: Sclera icteric ENT Exam: Positive: Mucous membr. moist/pink Neck Exam: Positive: Supple Chest Exam: Positive: Clear to auscultation, Normal air movement, Negative: Rales, Rhonchi, Wheezing Heart Exam: Positive: Rate Normal, Regular Rhythm, Normal S1, Normal S2 Telemetry: Positive: No significant arrhythmia Abdomen Exam: Positive: BS Hypoactive, Soft, Other (distended, without fluid wave), Negative: Tenderness, Hepatospenomegaly Extremity Exam: Negative: Edema Neuro Exam: Positive: Normal Speech Psych Exam: Positive: Oriented x 3 Assessment /Plan Problems (1) Hypokalemia Problem Text: , Potassium 3.3, repeated with oral potassium Repeat labs intermittently (2) HTN (hypertension) Status: Chronic Problem Text: This and was hypotensive on arrival. Will hold Aldactone and nadolol (3) Syncope Status: Acute Problem Text: Likely due to hypotension and put on telemetry monitor, and hydrate Cause of hypotension may be med effect, no other clear cause identified- will ct abd/pelvis as she is distended, but non-tender (4) Pancytopenia Status: Chronic Problem Text: intermittently noted on labs likely related to cirrhosis (5) Liver cirrhosis Status: Chronic Problem Text: from [facility] has portal hypertension has esophageal varices Will hold lasix Plan/VTE VTE Prophylaxis Ordered?: Yes Plan IVF: Initiate Diet: Continue Current Activity: Continue Current Therapy: PT, OT Anticipated Discharge: Home VS, I&O, 24H, Fishbone Vital Signs/I&O Vital Signs Date Time Temp Pulse Resp B/P (MAP) Pulse Ox O2 Delivery O2 Flow Rate FiO2 02/04/17 08:00 96.0 70 18 89/52 (64) 96 Room Air I&O- Last 24 Hours up to 6 AM 02/04/17 05:59 Intake Total 1620 ml Output Total 500 ml Balance 1120 ml Laboratory Data 24H LABS Laboratory Tests 2 02/03/17 23:07: White Blood Count 3.1L, Red Blood Count 3.35L, Hemoglobin 11.1L, Hematocrit 33.5L, Mean Corpuscular Volume 100.0H, Mean Corpuscular Hemoglobin 33.1H, Mean Corpuscular Hemoglobin Concent 33.1, Red Cell Distribution Width 14.9H, Platelet Count 78L, Neutrophils (%) (Auto) 67.7H, Lymphocytes (%) (Auto) 21.9L, Monocytes (%) (Auto) 5.9H, Eosinophils (%) (Auto) 2.5, Basophils (%) (Auto) 0.5 , Neutrophils # (Auto) 2.1, Lymphocytes # (Auto) 0.7L, Monocytes # (Auto) 0.2, Eosinophils # (Auto) 0.1, Basophils # (Auto) 0.0, Large Unclassified Cells % 1.5 , Large Unclassified Cells # 0.1, Prothrombin Time 14.8H, Prothromb Time International Ratio 1.15, Activated Partial Thromboplast Time 25.6L, Anion Gap 8 , Glomerular Filtration Rate > 60.0, Lactic Acid Level 1.7, Blood Urea Nitrogen 17, Creatinine 0.93, Sodium Level 143, Potassium Level 3.3L, Chloride Level 107 , Carbon Dioxide Level 28, Calcium Level 8.4L, Magnesium Level 1.8, Total Creatine Kinase 27, Creatine Kinase MB 1.0, Creatine Kinase MB Relative Index 3.70, Troponin I < 0.02, Thyroid Stimulating Hormone (TSH) 0.916, Free Thyroxine 1.22 02/03/17 23:15: Bedside Glucose (Misc Panel) 211H 02/04/17 05:10: Urine Appearance HAZY, Urine Color YELLOW, Urine pH 6.0, Urine Specific [place] 1.014, Urine Protein NEGATIVE, Urine Glucose (UA) NEGATIVE, Urine Ketones TRACEH , Urine Urobilinogen 0.2, Urine Bilirubin NEGATIVE, Urine Leukocyte Esterase 2+H , Urine Blood 1+H, Urine Nitrite NEGATIVE, Urine WBC (Auto) 34H, Urine RBC (Auto ) 3, Urine Hyaline Casts (Auto) 0, Urine Bacteria (Auto) NEGATIVE, Urine Squamous Epithelial Cells 4, Urine Sperm (Auto) 02/04/17 06:28: Bedside Glucose (Misc Panel) 184H 02/04/17 07:07: Total Creatine Kinase 26, Creatine Kinase MB 1.0, Creatine Kinase MB Relative Index 3.84, Troponin I < 0.02 CBC/BMP Laboratory Tests 02/03/17 23:07 Red Blood Count 3.35 L, Mean Corpuscular Volume 100.0 H, Mean Corpuscular Hemoglobin 33.1 H, Mean Corpuscular Hemoglobin Concent 33.1, Red Cell Distribution Width 14.9 H, Neutrophils (%) (Auto) 67.7 H, Lymphocytes (%) (Auto ) 21.9 L, Monocytes (%) (Auto) 5.9 H, Eosinophils (%) (Auto) 2.5, Basophils (%) (Auto) 0.5, Neutrophils # (Auto) 2.1, Lymphocytes # (Auto) 0.7 L, Monocytes # ( Auto) 0.2, Eosinophils # (Auto) 0.1, Basophils # (Auto) 0.0, Calcium Level 8.4 L Microbiology Microbiology 02/03/17 Blood Culture, Received Pending 02/03/17 Blood Culture, Received Pending SNEHAL APARICIO MD Feb 04, 2017 10:23
--- NOTE | 2017-02-04 10:30 | REP ---
CAROTID DUPLEX ULTRASOUND: 02/04/2017 COMPARISON: MRA carotid 07/09/2016, carotid ultrasound 02/26/2015. CLINICAL HISTORY: Syncope. FINDINGS: Standard duplex techniques were utilized to evaluate the carotid systems. The right common carotid artery shows some intimal thickening and minimal soft plaque distally with some mixed plaque at the bulb and into the proximal ICA. The left common carotid also shows intimal thickening. There is anterior and posterior mixed plaque at the bulb extending into both the ICA and ECA. Peak Velocities: RIGHT LEFT CCA systolic 0.96 m/s 0.86 m/s CA systolic 0.53 m/s 0.67 m/s ICA diastolic 0.18 m/s 0.16 m/s ECA systolic 0.97 m/s 0.69 m/s IC/CC ratio 0.57 m/s 0.79 m/s Cranial direction of flow seen in the vertebral arteries bilaterally. The Doppler waveform analysis does not show significant spectral broadening or filling in of the systolic window for either internal carotid. IMPRESSION: 1. Less than 50% stenosis bilaterally by velocity criteria. No hemodynamically significant or flow restricting lesion identified. 2. Cranial direction of flow in the vertebral arteries. Signed by Isaac Christina MD 02/04/2017 07:52 P
[2017-02-04 11:50] VITALS: BP 115/62
[2017-02-04 16:00] VITALS: BP 112/56
[2017-02-04 19:40] VITALS: BP 108/56
[2017-02-05] VITALS (10 sets, daily range): BP systolic 102–146; BP diastolic 55–86
[2017-02-05 05:51] LABS: ALBUMIN 2.5 GM/DL (3.2-5.2); ALBUMIN/GLOBULIN RATIO 0.66 (1.00-1.93); ALKALINE PHOSPHATASE 207 U/L (45-117); ALT/SGPT 26 U/L (12-78); ANION GAP 6 MEQ/L (8-16); AST/SGOT 18 U/L (15-37); BILIRUBIN,TOTAL 0.4 MG/DL (0.2-1.0); BLOOD UREA NITROGEN 15 MG/DL (7-18); CALCIUM LEVEL 7.9 MG/DL (8.8-10.2); CARBON DIOXIDE LEVEL 26 MEQ/L (21-32); CHLORIDE LEVEL 110 MEQ/L (98-107); GLOMERULAR FILTRATION RATE > 60.0 (>45); GLUCOSE, FASTING 201 MG/DL (80-110); POTASSIUM SERUM 3.3 MEQ/L (3.5-5.1); SODIUM LEVEL 142 MEQ/L (136-145); TOTAL PROTEIN 6.3 GM/DL (6.4-8.2)
[2017-02-05 05:56] LABS: MEAN CORPUSCULAR HEMOGLOBIN 32.8 pg (27.0-33.0); MEAN CORPUSCULAR HGB CONC 32.6 g/dl (32.0-36.5); MEAN CORPUSCULAR VOLUME 100.8 fl (80.0-96.0); RED CELL DISTRIBUTION WIDTH 14.7 % (11.5-14.5); WHITE BLOOD COUNT 2.1 K/mm3 (4.0-10.0)
[2017-02-05] MEDS: NS 1,000 ML IV SCH (06:37)
[2017-02-05] MEDS ORDERED: POTASSIUM CHLORIDE 10 MEQ SR TABLET PO ONE (07:00)
[2017-02-05] MEDS: GABAPENTIN 100 MG CAP PO SCH (07:24)
[2017-02-05] MEDS: ESCITALOPRAM OXALATE 10 MG TAB (LEXAPRO) PO SCH (07:24)
[2017-02-05] MEDS: MECLIZINE 25 MG TABLET PO SCH ×2 (07:24→21:29)
[2017-02-05] MEDS: FERROUS SULFATE 325MG TAB PO SCH ×2 (07:24→21:29)
[2017-02-05] MEDS: PANTOPRAZOLE 40MG TAB (PROTONIX) PO SCH (07:24)
[2017-02-05] MEDS: LEVEMIR (INSULIN DETEMIR) 1 UNITS/0.01ML SC SCH ×2 (07:25→21:28)
[2017-02-05] MEDS: HumaLOG INSULIN (NovoLOG) PER UNIT SC SCH ×3 (07:25→18:46)
--- NOTE | 2017-02-05 11:14 | ECHO ---
DATE OF PROCEDURE: 02/04/2017 REFERRING PROVIDER: PATIENT LOCATION: Room 3220 REASON FOR THE ECHOCARDIOGRAM: Syncope. 2D MEASUREMENT: IVS - 1.3 cm LV - 4.7 cm LVPW - 1.3 cm LA - 3.7 cm Aorta - 3.1 cm IVC - 2.3 cm DOPPLER MEASUREMENTS: Peak velocity across the aortic valve - 1.4 m/s Peak velocity across the LVOT - 0.9 m/s Mitral E - 0.72, Mitral A - 0.92 with a ration of 0.8 Maximum tricuspid valve velocity - 2.2 m/s 2D COMMENTS: 1. Normal left ventricular size with mildly increased left ventricular wall thickness. Left ventricular systolic function is normal, estimated at 60-65%. 2. Normal left atrium. Normal right atrium and right ventricle. 3. The atrial septum appeared to be normal without evidence of defect or shunt. 4. Normal aortic root. 5. Trace pericardial effusion. Echo free space noted anteriorly is probably related to a fat pad. 6. Normal aortic valve, mitral valve and tricuspid valve. The pulmonic valve and proximal pulmonary artery branches also appear to be normal. 7. The inferior vena cava was mildly enlarged, central venous pressure mildly elevated. DOPPLER: It detects trace mitral regurgitation and mild tricuspid regurgitation. The calculated pulmonary artery systolic pressure was normal. Abnormal relaxation pattern was noted across the mitral valve leaflets as well as across the mitral annulus consistent with grade 1 left ventricular diastolic dysfunction. IMPRESSION: 1. Normal global left ventricular systolic function. There were features of left ventricular diastolic dysfunction manifested by abnormal relaxation. 2. Trace mitral regurgitation. 3. Mild tricuspid regurgitation with a normal calculated pulmonary artery systolic pressure. 4. Most recent study was on 06/20/2016 and at that time, left ventricular systolic function also was normal. There was mild pulmonary hypertension and probably trace to small pericardial effusion. MTDD
--- NOTE | 2017-02-05 14:13 | IPNPDOC ---
Subjective Date Seen The patient was seen on 02/05/17. Subjective Chief Complaint/HPI The patient is a 61-year-old female admitted with a reason for visit of Syncope. Events since last encounter Feeling better, no presyncope, no dizziness, with orthostatic maneuvers, tolerating diet Constitutional: Denies: Chills, Fever Pulmonary: Denies: Dyspnea, Cough Cardiovascular: Denies: Chest Pain, Palpitations Gastrointestinal: Denies: Nausea, Vomiting, Abdominal Pain Objective Physical Examination General Exam: Positive: Alert, Cooperative, No Acute Distress Neck Exam: Positive: Supple Chest Exam: Positive: Clear to auscultation, Normal air movement, Negative: Rales, Rhonchi, Wheezing Heart Exam: Positive: Rate Normal, Regular Rhythm, Normal S1, Normal S2 Telemetry: Positive: No significant arrhythmia Abdomen Exam: Positive: BS Hypoactive, Soft, Other (distended, without fluid wave), Negative: Tenderness, Hepatospenomegaly Extremity Exam: Negative: Edema Neuro Exam: Positive: Normal Speech Psych Exam: Positive: Oriented x 3 Assessment /Plan Problems (1) Hypokalemia Problem Text: repleted with oral potassium Repeat labs intermittently (2) HTN (hypertension) Status: Chronic Problem Text: This and was hypotensive on arrival. Will hold Aldactone and nadolol not orthostatic (3) Syncope Status: Acute Problem Text: Likely due to hypotension and put on quality assurance monitor, and hydrate Cause of hypotension may be med effect, no other clear cause identified- will ct abd/pelvis as she is distended, but non-tender (4) Pancytopenia Status: Chronic Problem Specific Plan: Monitor Clinically Problem Text: intermittently noted on labs over the course of time likely related to cirrhosis (5) Liver cirrhosis Status: Chronic Problem Text: from [facility] has portal hypertension has esophageal varices Plan/VTE VTE Prophylaxis Ordered?: Yes Plan IVF: Initiate Diet: Continue Current Activity: Continue Current Therapy: PT, OT Anticipated Discharge: Home VS[facility] Vital Signs/I&O Vital Signs Date Time Temp Pulse Resp B/P (MAP) Pulse Ox O2 Delivery O2 Flow Rate FiO2 02/05/17 11:15 96.2 70 18 146/79 (101) 95 Room Air I&O- Last 24 Hours up to 6 AM 02/05/17 06:00 Intake Total 3720 ml Output Total 4670 ml Balance -950 ml Laboratory Data 24H LABS Laboratory Tests 2 02/04/17 14:55: Total Creatine Kinase 32, Creatine Kinase MB 1.0, Creatine Kinase MB Relative Index 3.12, Troponin I < 0.02 02/04/17 16:18: Bedside Glucose (Misc Panel) 446H 02/04/17 20:37: Bedside Glucose (Misc Panel) 297H 02/04/17 22:57: Total Creatine Kinase 26, Creatine Kinase MB 1.0, Creatine Kinase MB Relative Index 3.84, Troponin I < 0.02 02/05/17 01:54: Bedside Glucose (Misc Panel) 221H 02/05/17 04:51: Anion Gap 6L, Glomerular Filtration Rate > 60.0, Blood Urea Nitrogen 15, Creatinine 0.80, Sodium Level 142, Potassium Level 3.3L, Chloride Level 110H, Carbon Dioxide Level 26, Calcium Level 7.9L, Aspartate Amino Transf (AST/SGOT) 18, Alanine Aminotransferase (ALT/SGPT) 26, Alkaline Phosphatase 207H, Total Bilirubin 0.4, Total Protein 6.3L, Albumin 2.5L, Albumin/Globulin Ratio 0.66L 02/05/17 11:48: Bedside Glucose (Misc Panel) 339H CBC/BMP Laboratory Tests 02/05/17 04:51 Red Blood Count 3.13 L, Mean Corpuscular Volume 100.8 H, Mean Corpuscular Hemoglobin 32.8, Mean Corpuscular Hemoglobin Concent 32.6, Red Cell Distribution Width 14.7 H, Calcium Level 7.9 L, Aspartate Amino Transf (AST/SGOT ) 18, Alanine Aminotransferase (ALT/SGPT) 26, Alkaline Phosphatase 207 H, Total Bilirubin 0.4, Total Protein 6.3 L, Albumin 2.5 L Microbiology Microbiology 02/03/17 Blood Culture - Preliminary, Resulted No growth after 24 hours . All specim... 02/03/17 Blood Culture - Preliminary, Resulted No growth after 24 hours . All specim... SNEHAL APARICIO MD Feb 05, 2017 14:13
[2017-02-05 19:35] LABS: BASO % 1.5 % (0.0-1.0); EOS # 0.1 K/mm3 (0.0-0.50); LARGE UNSTAINED CELL # 0.1 K/mm3 (0.0-0.4); LARGE UNSTAINED CELL % 2.3 % (0.0-4.0); LYMPH # 0.7 K/mm3 (1.5-4.5); LYMPH % 21.8 % (24.0-44.0); MEAN CORPUSCULAR HEMOGLOBIN 33.2 pg (27.0-33.0); MEAN CORPUSCULAR HGB CONC 32.6 g/dl (32.0-36.5); MEAN CORPUSCULAR VOLUME 101.6 fl (80.0-96.0); MONO # 0.1 K/mm3 (0.0-0.8); MONO % 3.9 % (0.0-5.0); NEUTROPHILS # 2.2 K/mm3 (1.8-7.7); NEUTROPHILS % 67.4 % (36.0-66.0); RED CELL DISTRIBUTION WIDTH 14.4 % (11.5-14.5); WHITE BLOOD COUNT 3.2 K/mm3 (4.0-10.0)
[2017-02-05 19:53] LABS: ALBUMIN 2.8 GM/DL (3.2-5.2); ALBUMIN/GLOBULIN RATIO 0.74 (1.00-1.93); ALKALINE PHOSPHATASE 232 U/L (45-117); ALT/SGPT 31 U/L (12-78); ANION GAP 7 MEQ/L (8-16); AST/SGOT 24 U/L (15-37); BILIRUBIN,TOTAL 0.6 MG/DL (0.2-1.0); BLOOD UREA NITROGEN 12 MG/DL (7-18); CALCIUM LEVEL 8.3 MG/DL (8.8-10.2); CARBON DIOXIDE LEVEL 24 MEQ/L (21-32); CHLORIDE LEVEL 111 MEQ/L (98-107); CREATININE FOR GFR 0.73 MG/DL (0.55-1.02); GLOMERULAR FILTRATION RATE > 60.0 (>45); GLUCOSE, FASTING 207 MG/DL (80-110); POTASSIUM SERUM 4.2 MEQ/L (3.5-5.1); SODIUM LEVEL 142 MEQ/L (136-145); TOTAL PROTEIN 6.6 GM/DL (6.4-8.2)
[2017-02-05 20:08] LABS: PLATELET COUNT, AUTOMATED 74 k/mm3 (150-450)
--- NOTE | 2017-02-06 01:16 | ECGEPIP ---
Stationary ECG Study [facility] Test Date: 2017-02-05 Pat Name: SAROJ JOHNSON Department: Room: [place] [address] Gender: F [employer]: : 1955 Requested By: SNEHAL Guzmán Order Number: [id number] Reading MD: Singh Izquierdo Measurements Intervals [place] Rate: 76 P: 35 NV: 139 QRS: -13 QRSD: 98 T: 20 QT: 391 QTc: 440 Interpretive Statements SINUS RHYTHM Last tracing on 02/03/2017 at 23:12:58, no significant changes Electronically Signed On 02-06-2017 1:16:31 EDT by Singh Izquierdo
[2017-02-06 02:57] VITALS: BP 116/58
[2017-02-06 05:11] LABS: MEAN CORPUSCULAR HGB CONC 32.2 g/dl (32.0-36.5); MEAN CORPUSCULAR VOLUME 102.3 fl (80.0-96.0); RED CELL DISTRIBUTION WIDTH 14.9 % (11.5-14.5); WHITE BLOOD COUNT 2.2 K/mm3 (4.0-10.0)
[2017-02-06 05:23] LABS: ALBUMIN 2.5 GM/DL (3.2-5.2); ALBUMIN/GLOBULIN RATIO 0.66 (1.00-1.93); ALKALINE PHOSPHATASE 200 U/L (45-117); ALT/SGPT 26 U/L (12-78); ANION GAP 7 MEQ/L (8-16); AST/SGOT 24 U/L (15-37); BILIRUBIN,TOTAL 0.6 MG/DL (0.2-1.0); BLOOD UREA NITROGEN 12 MG/DL (7-18); CALCIUM LEVEL 8.1 MG/DL (8.8-10.2); CARBON DIOXIDE LEVEL 24 MEQ/L (21-32); CHLORIDE LEVEL 110 MEQ/L (98-107); CREATININE FOR GFR 0.73 MG/DL (0.55-1.02); GLOMERULAR FILTRATION RATE > 60.0 (>45); GLUCOSE, FASTING 203 MG/DL (80-110); POTASSIUM SERUM 3.9 MEQ/L (3.5-5.1); SODIUM LEVEL 141 MEQ/L (136-145); TOTAL PROTEIN 6.3 GM/DL (6.4-8.2)
[2017-02-06] MEDS: HumaLOG INSULIN (NovoLOG) PER UNIT SC SCH ×2 (07:36→12:07)
[2017-02-06 08:00] VITALS: BP 133/66
[2017-02-06] MEDS: LEVEMIR (INSULIN DETEMIR) 1 UNITS/0.01ML SC SCH (08:44)
[2017-02-06] MEDS: FERROUS SULFATE 325MG TAB PO SCH (08:44)
[2017-02-06] MEDS: MECLIZINE 25 MG TABLET PO SCH (08:44)
[2017-02-06] MEDS: PANTOPRAZOLE 40MG TAB (PROTONIX) PO SCH (08:44)
[2017-02-06] MEDS: GABAPENTIN 100 MG CAP PO SCH (08:44)
[2017-02-06 09:48] LABS: PROLACTIN 10.5 NG/ML
[2017-02-06 12:00] VITALS: BP 139/69
[2017-02-06] MEDS ORDERED: ANALGESIC BALM CRM 120 GM TOP PRN (12:00)
[2017-02-06] MEDS ORDERED: SPIR25TA2 PO (13:00)
[2017-02-06] MEDS ORDERED: NADO20TA PO (13:01)
[2017-02-06] MEDS ORDERED: LASI20TA PO (13:01)
[2017-02-06] MEDS ORDERED: SLF 3 ML SYR IV PRN (13:15)
[2017-02-06] MEDS ORDERED: SLF 3 ML SYR IV SCH (14:00)
--- NOTE | 2017-02-07 06:20 | DSES ---
DATE OF ADMISSION: 02/03/2017 DATE OF DISCHARGE: 02/06/2017 SPECIALISTS: None involved in care. COMPLICATIONS: None during stay. PROCEDURES: None performed during stay. DISCHARGE DIAGNOSES: 1. Syncope due to orthostatic hypotension. 2. Migraine headache. 3. Hypokalemia. 4. Pancytopenia. 5. Liver cirrhosis. SUMMARY OF PRESENTATION: A 61-year-old who presented with syncopal episode associated with hypotension and orthostasis. She is on diuretics for cirrhosis as well as beta blockade. She was brought to the hospital, fluid resuscitated, and improved. She did have another event during her stay where she had a headache. Lights were affecting her. She became weak, and the rapid assessment team was called. She was monitored on telemetry thereafter. She had no significant arrhythmia. Had improved. Headache was controlled with the use of [place]. Case was discussed by phone with the patient's outpatient neurologist who recommended outpatient followup in his office. On the day of discharge, she is feeling well. She has no complaints of pain. Headache is controlled. She is ambulating without difficulty, tolerating diet. OBJECTIVE: VITAL SIGNS: Temperature 98.5, pulse 80, respirations 18, blood pressure 139/69, 96% on room air. GENERAL: She is awake, appropriately interactive. Pleasantly conversant. She had one bowel movement on the day prior to discharge. LUNGS: Breathing is symmetrical. I to E ratio is 1:3. HEART: Distant sounding normal S1, S2. ABDOMEN: Soft, doughy, somewhat distended, nontender. No fluid wave. LABORATORY DATA: White cell count 2.2, hemoglobin 10.6, and platelets of 69. BUN 0.73. DISCHARGE INSTRUCTIONS: Followup with Dr. Cesar on 02/17 at [address] Berger. Call his office for an appointment. DISCHARGE MEDICATIONS: - Lasix 60 mg by mouth daily - Nadolol 20 mg by mouth daily - spironolactone 25 mg by mouth by mouth daily - continue aspirin 81 mg by mouth daily - calcium and vitamin D supplement - Benadryl as needed - Lexapro 20 mg by mouth daily - Nexium 40 mg by mouth daily - iron supplement - Neurontin 100 mg by mouth daily - continue insulin as previously written including sliding scale and Lantus 66 units twice daily - meclizine 25 mg twice daily - trazodone 50 mg by mouth daily at bedtime Discontinue amitriptyline. Discontinue previous dose of Lasix. Discontinue previous dose of nadolol, and discontinue of previous does of spironolactone.
== END 2017-02-06 16:24 | disposition home health service (06) ==
LOC: EDBD 21:43 → M ED 23:35 → M ED INP 23:36 → M PCU 02-04 02:27 → M MSPAV 02-05 11:10 → M PCU 02-05 19:02
PROVIDERS: ADMIT Internal Medicine; ATTEND Internal Medicine
DX: I95.1 Orthostatic hypotension (principal); G43.909 Migraine, unspecified, not intractable, without status migrainosus; E87.6 Hypokalemia; D61.818 Other pancytopenia; K74.60 Unspecified cirrhosis of liver; Z79.899 Other long term (current) drug therapy; K57.32 Diverticulitis of large intestine without perforation or abscess without bleeding; Z79.82 Long term (current) use of aspirin; Z88.8 Allergy status to other drugs, medicaments and biological substances

== ENCOUNTER → 2017-02-17 | Outpatient (CLI) | payer OTHER ==
[~2017-02-17] MED LIST changes: +LASI40TA PO
--- NOTE | 2017-02-17 12:19 | REP ---
Clinical: Cough. Technique: PA and lateral. Comparison: 02/03/2017. Findings: Opacity involving the right mid to lower lung zone suggests effusion with atelectasis and/or subpulmonic collection. Remainder of the aerated lung sweet are clear. No pneumothorax. Mediastinum and cardiac silhouette normal/stable. Skeletal structures intact. Impression: Large opacity involving the right mid to lower lung zone. Differential diagnosis includes pleural effusion and/or atelectasis as well as subpulmonic collection. Signed by Pk Hansen MD 02/17/2017 12:10 P
== END ==
LOC: M LRY 11:40
PROVIDERS: ATTEND Family Medicine
DX: D61.818 Other pancytopenia (principal); R05 Cough

== ENCOUNTER → 2017-02-17 | Outpatient (REF) | payer OTHER ==
[2017-02-17 17:21] LABS: CALCIUM LEVEL 8.6 MG/DL (8.8-10.2); CREATININE FOR GFR 1.04 MG/DL (0.55-1.02); GLOMERULAR FILTRATION RATE 57.2 (>45); POTASSIUM SERUM 3.6 MEQ/L (3.5-5.1)
[2017-02-17 17:27] LABS: FOLATE 19.6 NG/ML (>5.4)
== END ==
LOC: M SFHCLERA 11:37
PROVIDERS: ATTEND Family Medicine
DX: D61.818 Other pancytopenia (principal); R05 Cough

== ENCOUNTER 2017-02-25 14:54 | Inpatient (IN) | payer OTHER ==
[~2017-02-25] VITALS: Ht 152.4 cm; Wt 108.1 kg
[~2017-02-25 14:54] MED LIST changes: -LASI40TA PO
[2017-02-25] MEDS ORDERED: SPIR100T PO (15:15)
[2017-02-25] MEDS ORDERED: AMIT25TA PO (15:15)
[2017-02-25] MEDS ORDERED: LASI40TA PO (15:15)
[2017-02-25 16:14] LABS: BASO % 0.3 % (0.0-1.0); EOS # 0.1 K/mm3 (0.0-0.50); LARGE UNSTAINED CELL % 0.9 % (0.0-4.0); LYMPH # 0.7 K/mm3 (1.5-4.5); MEAN CORPUSCULAR HEMOGLOBIN 31.2 pg (27.0-33.0); MEAN CORPUSCULAR HGB CONC 31.9 g/dl (32.0-36.5); MEAN CORPUSCULAR VOLUME 97.7 fl (80.0-96.0); MONO # 0.2 K/mm3 (0.0-0.8); MONO % 3.7 % (0.0-5.0); NEUTROPHILS # 3.4 K/mm3 (1.8-7.7); NEUTROPHILS % 77.1 % (36.0-66.0); PLATELET COUNT, AUTOMATED 150 k/mm3 (150-450); RED CELL DISTRIBUTION WIDTH 13.7 % (11.5-14.5); WHITE BLOOD COUNT 4.4 K/mm3 (4.0-10.0)
[2017-02-25 16:23] LABS: INR 1.24
[2017-02-25] MEDS ORDERED: NADO20TA PO (16:44)
[2017-02-25] MEDS ORDERED: SPIR25TA2 PO (16:44)
[2017-02-25 16:55] LABS: ALBUMIN 1.8 GM/DL (3.2-5.2); ALBUMIN/GLOBULIN RATIO 0.38 (1.00-1.93); ALKALINE PHOSPHATASE 416 U/L (45-117); ALT/SGPT 17 U/L (12-78); AMYLASE 28 U/L (25-115); ANION GAP 8 MEQ/L (8-16); AST/SGOT 24 U/L (15-37); BILIRUBIN,DIRECT 0.2 MG/DL (0.0-0.2); BILIRUBIN,TOTAL 0.4 MG/DL (0.2-1.0); BLOOD UREA NITROGEN 16 MG/DL (7-18); CARBON DIOXIDE LEVEL 28 MEQ/L (21-32); CHLORIDE LEVEL 106 MEQ/L (98-107); CREATININE FOR GFR 0.93 MG/DL (0.55-1.02); GLOMERULAR FILTRATION RATE > 60.0 (>45); GLUCOSE, FASTING 209 MG/DL (80-110); POTASSIUM SERUM 3.7 MEQ/L (3.5-5.1); SODIUM LEVEL 142 MEQ/L (136-145); TOTAL PROTEIN 6.6 GM/DL (6.4-8.2)
[2017-02-25] MEDS ORDERED: ALBUTEROL SULFATE 2.5 MG/0.5 ML INH NEB SOLN INH ONE (17:00)
[2017-02-25] MEDS ORDERED: VANCOMYCIN HCL 1,000 MG, VIAL MATE ADAPTER 1 EACH in D5W 250 ML IV ONE (17:00)
[2017-02-25] MEDS ORDERED: IPRATROPIUM 0.5MG/ALBUTEROL 2.5MG INH SOL UD 3ML (DUONEB)(J7620) NEB ONE (17:00)
[2017-02-25] MEDS ORDERED: CEFEPIME HCL 2 GM in D5W MINI-BAG PLUS 50 ML IV ONE (17:00)
[2017-02-25] MEDS ORDERED: AZITHROMYCIN INJ 500 MG, VIAL MATE ADAPTER 1 EACH in D5W 250 ML IV ONE (17:00)
[2017-02-25 17:19] LABS: ABG BASE EXCESS 7.2 (-2.0-2.0); ABG HCO3 30.1 MEQ/L (22.0-26.0); ABG PARTIAL PRESSURE CO2 36.1 mmHg (35.0-45.0); ABG PARTIAL PRESSURE O2 87.9 mmHg (75.0-100.0); ABG STANDARD HCO3 31.1 MEQ/L (22.0-26.0); ABG TOTAL CO2 31.2 MEQ/L (23.0-31.0); ABG pH (ARTERIAL) 7.539 UNITS (7.350-7.450)
[2017-02-25] MEDS ORDERED: NS 500 ML IV ONE (17:30)
[2017-02-25] MEDS ORDERED: BISACODYL 10 MG SUPP PR PRN (18:15)
[2017-02-25] MEDS ORDERED: diphenhydrAMINE 25 MG CAP PO PRN (18:15)
[2017-02-25] MEDS ORDERED: DEXTROSE 50% 50 ML SYRINGE IV PRN (18:30)
[2017-02-25] MEDS ORDERED: GLUCAGON FOR INJ 1 MG VIAL (J1610) SC PRN (18:30)
[2017-02-25] MEDS ORDERED: GLUCOSE 4 GM CHEW TABLET PO PRN (18:30)
--- NOTE | 2017-02-25 19:06 | ECGEPIP ---
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
--- NOTE | 2017-02-25 20:32 | HPE ---
DATE OF ADMISSION: 02/25/2017 PRIMARY CARE PHYSICIAN: Suzy Cesar MD ONCOLOGIST: Rickey Cuba MD GASTROINTESTINAL (GI) SPECIALIST: Patient has been referred by Dr. Cesar to [place]. CHIEF COMPLAINT: Abdominal extension, fatigue, coughing, and tiredness. HISTORY OF PRESENT ILLNESS: Ms. Palma is a 61-year-old female with multiple past medical history who presented to the emergency room (ER) due to experiencing fatigue, extension of the abdomen, as well as cough. Patient expressed that her cough started about 2 weeks ago. Patient was seen by the primary care at that time who asked her to lose weight, however patient expressed that she has lost a few pounds. Patient expressed that her cough did not increase. Patient described the cough as a nonproductive cough. Patient also expressed dyspnea in all positions and increase with activities. Patient denies sick contacts. Patient denies fever, chills, or night sweats. Patient also denies lightheadedness or dizziness. Patient denies dysuria, hematuria, or blood in the stool. Patient also denies lower extremity edema. ALLERGIES: ACETAMINOPHEN, CANDESARTAN, HYDROCHLOROTHIAZIDE, IBUPROFEN, tape. HOME MEDICATIONS: - amitriptyline 25 mg by mouth nightly - aspirin 81 mg by mouth daily - calcium 500 plus D3 500-600 mg unit one tablet by mouth twice a day - Benadryl Allergy 25 mg by mouth nightly as needed itching and swelling - Lexapro 20 mg by mouth daily - Nexium 40 mg by mouth daily - ferrous sulfate 325 mg by mouth three times a day - Lasix 40 mg by mouth twice a day - insulin sliding scale - Lantus 66 units subcutaneous twice a day - meclizine 25 mg by mouth twice a day - atenolol 20 mg by mouth daily - spironolactone 100 mg by mouth daily - spironolactone 25 mg by mouth daily - trazodone 50 mg by mouth nightly PAST MEDICAL HISTORY: 1. Diabetes mellitus type 2. 2. Hypertension. 3. Dyslipidemia. 4. Chronic pleural effusion (status post chest tube, pigtail catheter, pleurodesis). 5. 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 6. Portal hypertension. 7. Esophageal varices. 8. Migraine headaches. 9. Chronic vertigo. 10. Anxiety. 11. Depression. 12. Obesity. 13. Anemia. 14. Leukopenia. 15. Thrombocytopenia. 16. History of Clostridium (C) difficile. 17. Gastroesophageal reflux disease (GERD). PAST SURGICAL HISTORY: 1. Hysterectomy 20 years ago. 2. Dilatation and curettage (D and C) times 16. 3. Left elbow surgery. 4. Left and right shoulder surgery. 5. Appendectomy. 6. Hernia repair. 7. Right knee surgery. SOCIAL HISTORY: Patient lives alone. Patient denies history of alcohol usage. Patient also denies history of illicit drug use or tobacco abuse. Patient has not traveled outside of [place]. 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 Patient has three children, two sons and one daughter, who are healthy for their age. FAMILY HISTORY: Patient had three brothers, one brother from a heart attack and diabetes in his 60s, one brother was killed in combat. Patient has one sister who is healthy for her age. Patient's father due to a heart attack in his 70s. Patient's mother due to diabetes and a stroke, however patient cannot remember what age. REVIEW OF SYSTEMS: GENERAL: Patient denies fever, chills, night sweats, weight loss, weight gain, however patient has a few founds of weight loss intentionally. HEENT: Patient denies acute vision or hearing changes. Patient denies a problem with chewing food or sinusitis. NECK: Patient denies lumps, bumps, or decreased range of motion of her neck. HEART: Patient denies palpitations, racing or skipping heartbeat or chest pain. LUNGS: Patient expressed that she has been out of breath and coughing, a nonproductive cough, for the past 2 weeks. ABDOMEN: Patient feels that her abdomen has been extended. However, patient denies abdominal pain, nausea, vomiting, diarrhea, constipation, melena, hematochezia, or hemoptysis. NEUROLOGIC: Patient denies history of transient ischemic attack (TIA), seizure or seizure-type activities. PHYSICAL EXAMINATION: VITAL SIGNS: Temperature 98.2, pulse 68, respiratory rate 16, blood pressure 121/58, pulse oximetry 94% on room air. GENERAL APPEARANCE: Patient was lying in bed, in no acute distress. Patient was awake, alert, and oriented to time, place, and person. HEENT: Normocephalic, atraumatic. Pupils are equal and reactive to light. Oral mucosa is moist. NECK: Soft, supple. No lymphadenopathy. No thyromegaly. No jugular venous distention (JVD). HEART: Regular rate and rhythm, normal S1, S2. LUNGS: Patient has decreased breath sounds at the base of the lungs. Good air movement. ABDOMEN: Extended, soft, nontender to palpation. Positive bowel sounds in all quadrants. EXTREMITIES: No lower extremity edema. +2 pulses in both lower extremities. Patient has normal range of motion in both upper and lower extremities. Patient has normal sensation in both upper and lower extremities. NEUROLOGIC: Cranial nerves II-XII were intact. No focal deficiencies. LABORATORY DATA: White blood cells 4.4, red blood cells 3.14, hemoglobin 9.8, hematocrit 30.6, MCV 97.7, MCH 31.2, MCHC 31.9, RDW 13.7, platelet count 115, neutrophil percentage 77.1, lymphocyte percentage 15, monocyte percentage 3.7, eosinophil percentage 3, basophil percentage 0.3, leukocyte percentage 0.9. Bicarbonate standard 31.1, ABG pH 7.539, ABG pCO2 36.1, ABG pO2 87.9, ABG HCO3 30.1, ABG total CO2 31.2, ABG oxygen saturation 97.5. PT 15.8, INR 1.24, aPTT 31.1. Sodium 142, potassium 3.7, chloride 106, carbon dioxide 28, anion gap 8, BUN 16, creatinine 0.93, glomerular filtration rate more than 60, fasting glucose 209, lactic acid 2.3, calcium 8, total bilirubin 0.4, direct bilirubin 0.2, AST 24, ALT 17, alkaline phosphatase 416, total creatine 39, CK-MB 1, CK-MB relative index 2.56, troponin I less than 0.02, total protein 6.6, albumin 1.8, amylase 28, lipase 142. Blood culture is pending. IMAGING STUDIES: CT of abdomen and pelvis without contrast shows large amount of ascites, cholelithiasis, cirrhosis, right lower lobe atelectasis/ infiltrate, small right effusion increased. Chest x-ray shows right lower lobe atelectasis, infiltration, effusion. ASSESSMENT AND PLAN: 1. Dyspnea and coughing. This is possibly secondary to community-acquired pneumonia versus extension of ascites secondary to cirrhosis. At this time, I have started patient on Rocephin and azithromycin. Also, we have ordered sputum gram stain and culture and respiratory panel and the result is pending at this time. Also, we will consult surgery for abdominal paracentesis which can help with the ascites. Also, patient is on oxygen for the goal of saturation above 92%. Patient also has a chronic pleural effusion on the right which is secondary to cirrhosis, however at this time patient does not require to have intervention for draining the pericardial effusion. 2. Chronic pericardial effusion on the right side. Patient has a history of chest tube, pigtail catheter, and pleurocentesis. This is possibly secondary to cirrhosis. However, at this time patient is on room air and does not require oxygen. Imaging indicated the possibility of mild increase compared to previous studies, however at this time I have started patient on Rocephin and azithromycin due to possibility of community-acquired pneumonia. We will continue monitoring patient for any abnormal symptoms. 3. Diabetes type 2 mellitus. We will continue patient with the Levemir home dosage as well as sliding scale. Patient is on consistent carbohydrates. 4. Hypertension. At this time, we will continue patient on spironolactone and Lasix with holding parameters. At this time, patient's blood pressure is stable. 5. Anxiety and depression. We will continue patient on trazodone, Lexapro, and amitriptyline. 6. Gastroesophageal reflux disease. We will continue patient on Protonix 40 mg by mouth daily. 7. Esophageal varices and portal hypertension. This is secondary to cirrhosis caused by nonalcoholic steatohepatitis (HICKS). At this time, we will continue patient on current dosage of nadolol (20 mg by mouth daily). 8. Spontaneous bacterial peritonitis. Patient is afebrile and does not have leukocytosis. Patient does not have tenderness in the abdominal area and no gastrointestinal (GI) bleeding was noticed. However, at this time, due to the possibility of community-acquired pneumonia, we have started patient on Rocephin which can also be used for prophylaxis for spontaneous bacterial peritonitis (SBT). 9. Anemia. This is possibly secondary to iron deficiency. At this time, we will continue patient on ferrous sulfate. 10. Obesity. This is a chronic issue. 11. Chronic vertigo. We will continue patient on meclizine. 12. Migraine headaches. At this time patient is stable. My preceptor for this patient encounter was Dr. Zoya Katz. The preceptor was physically present in the building during the encounter and was fully available. As needed, all aspects of the patient interview, examination, medical decision making process, and medical care plan development were reviewed and approved by the preceptor. The preceptor is aware and concurs with the plan as stated in the body of this note and will attest to such by his/her cosignature.
[2017-02-25 21:00] VITALS: BP 135/62
[2017-02-25] MEDS: FUROSEMIDE 40 MG TAB PO SCH (22:21)
[2017-02-25] MEDS: FERROUS SULFATE 325MG TAB PO SCH (22:21)
[2017-02-25] MEDS: AMITRIPTYLINE 25 MG TAB PO SCH (22:22)
[2017-02-25] MEDS: HEPARIN SOD (PORCINE) 5000 UNITS/ML VIAL SC SCH (22:22)
[2017-02-25] MEDS: MECLIZINE 25 MG TABLET PO SCH (22:22)
[2017-02-25] MEDS: traZODone 50 MG TAB PO SCH (22:32)
[2017-02-25] MEDS: HumaLOG INSULIN (NovoLOG) PER UNIT SC SCH (22:50)
[2017-02-26] MEDS: MORPHINE 2 MG/ML 1ML SYRINGE IV PRN ×3 (00:34→10:19)
[2017-02-26] MEDS: BENZONATATE 100 MG CAP PO PRN ×3 (02:24→23:00)
[2017-02-26] MEDS ORDERED: MORPHINE 10 MG/ML 1ML VIAL IV ONE (03:00)
[2017-02-26] MEDS: HEPARIN SOD (PORCINE) 5000 UNITS/ML VIAL SC SCH ×3 (05:28→22:13)
[2017-02-26 05:49] LABS: BASO % 0.4 % (0.0-1.0); EOS % 1.3 % (0.0-3.0); LARGE UNSTAINED CELL # 0.1 K/mm3 (0.0-0.4); LARGE UNSTAINED CELL % 1.5 % (0.0-4.0); LYMPH # 0.7 K/mm3 (1.5-4.5); LYMPH % 15.7 % (24.0-44.0); MEAN CORPUSCULAR HEMOGLOBIN 31.5 pg (27.0-33.0); MEAN CORPUSCULAR HGB CONC 31.8 g/dl (32.0-36.5); MEAN CORPUSCULAR VOLUME 99.1 fl (80.0-96.0); MONO # 0.2 K/mm3 (0.0-0.8); MONO % 5.2 % (0.0-5.0); NEUTROPHILS # 3.1 K/mm3 (1.8-7.7); NEUTROPHILS % 75.9 % (36.0-66.0); PLATELET COUNT, AUTOMATED 140 k/mm3 (150-450); RED CELL DISTRIBUTION WIDTH 13.6 % (11.5-14.5); WHITE BLOOD COUNT 4.1 K/mm3 (4.0-10.0)
[2017-02-26 05:51] LABS: ALBUMIN 1.8 GM/DL (3.2-5.2); ALBUMIN/GLOBULIN RATIO 0.38 (1.00-1.93); ALKALINE PHOSPHATASE 386 U/L (45-117); ALT/SGPT 13 U/L (12-78); ANION GAP 4 MEQ/L (8-16); AST/SGOT 15 U/L (15-37); BILIRUBIN,TOTAL 0.4 MG/DL (0.2-1.0); BLOOD UREA NITROGEN 14 MG/DL (7-18); CALCIUM LEVEL 8.2 MG/DL (8.8-10.2); CARBON DIOXIDE LEVEL 33 MEQ/L (21-32); CHLORIDE LEVEL 101 MEQ/L (98-107); CREATININE FOR GFR 0.81 MG/DL (0.55-1.02); GLOMERULAR FILTRATION RATE > 60.0 (>45); GLUCOSE, FASTING 136 MG/DL (80-110); MAGNESIUM LEVEL 1.8 MG/DL (1.8-2.4); POTASSIUM SERUM 3.3 MEQ/L (3.5-5.1); SODIUM LEVEL 138 MEQ/L (136-145); TOTAL PROTEIN 6.6 GM/DL (6.4-8.2)
[2017-02-26 06:00] VITALS: BP 112/54
[2017-02-26] MEDS: HumaLOG INSULIN (NovoLOG) PER UNIT SC SCH ×4 (07:30→22:00)
[2017-02-26] MEDS ORDERED: MAG SULF 1GM/100ML (MAG RUN) 1 GM in APPROPRIATE DILUENT 1 EA IV ONE (07:45)
[2017-02-26] MEDS ORDERED: POTASSIUM CHLORIDE 10 MEQ SR TABLET PO ONE (07:45)
--- NOTE | 2017-02-26 07:47 | REP ---
PORTABLE CHEST, ONE VIEW: HISTORY: Shortness of breath. COMPARISON: 02/17/2017 Increased density is present in the right lower lobe consistent with atelectasis or infiltrate, unchanged compared to the previous study. A right pleural effusion is present, unchanged compared to the previous study. The left lung is clear. The heart is normal in size. IMPRESSION: Right lower lobe atelectasis or infiltrate and right effusion, unchanged compared to the previous study. Signed by Raymond Holley MD 02/26/2017 07:49 A
--- NOTE | 2017-02-26 07:57 | REP ---
CT ABDOMEN AND PELVIS WITHOUT CONTRAST: HISTORY: Ascites. COMPARISON: 12/13/2016 The liver is irregular in contour consistent with cirrhosis. Calcifications are present in the gallbladder consistent with cholelithiasis. There is splenomegaly with portal venous hypertension. The pancreas, adrenal glands and kidneys are normal in appearance. Diverticula are present in the descending colon. A large amount of ascites is present that is increased compared to the previous study. Increased density is present in the right lower lobe consistent with atelectasis or infiltrate. A small right pleural effusion is present that is increased compared to the previous study. Increased density is present in the anterior subcutaneous tissue consistent with edema. The urinary bladder and uterus are normal in appearance. Diverticula are present in the descending and sigmoid colon. Degenerative change is present in the spine. IMPRESSION: 1. Findings consistent with cirrhosis. 2. Cholelithiasis. 3. There is a large amount of ascites that is increased compared to the previous study. 4. Diverticulosis. 5. Right lower lobe atelectasis or infiltrate. 6. Small right pleural effusion, increased compared to the previous study. Signed by Raymond Holley MD 02/26/2017 07:59 A
[2017-02-26] MEDS: FUROSEMIDE 40 MG TAB PO SCH ×2 (09:00→17:00)
[2017-02-26] MEDS: SPIRONOLACTONE 25 MG TAB PO SCH (09:00)
[2017-02-26] MEDS: SPIRONOLACTONE 50 MG TAB PO SCH (09:00)
[2017-02-26] MEDS: ESCITALOPRAM OXALATE 10 MG TAB (LEXAPRO) PO SCH (09:59)
[2017-02-26] MEDS: FERROUS SULFATE 325MG TAB PO SCH ×3 (10:05→22:12)
[2017-02-26] MEDS: PANTOPRAZOLE 40MG TAB (PROTONIX) PO SCH (10:06)
[2017-02-26] MEDS: MECLIZINE 25 MG TABLET PO SCH ×2 (10:06→22:12)
[2017-02-26] MEDS: ASPIRIN 81 MG ENTERIC TAB PO SCH (10:06)
[2017-02-26] MEDS: NADOLOL 20MG TABLET PO SCH (10:07)
[2017-02-26] MEDS: ONDANSETRON 4MG/2ML VIAL (J2405) IV PRN (10:28)
--- NOTE | 2017-02-26 13:57 | IPN ---
DATE: 02/26/2017 The patient complains of severe discomfort. No shortness of breath, chest pain, pressure or tightness, lightheadedness. Afebrile overnight. OBJECTIVE: VITAL SIGNS: Temperature 98.4, pulse 68, respiratory rate 18, blood pressure 108/54, 92% on room air. GENERAL: The patient is awake, alert, and oriented times three. Anicteric sclerae. No jaundice. No jugular venous distention (JVD). LUNGS: Diminished breath sounds bilaterally with fine crackles at the bases. HEART: S1, S2. Sinus rhythm. ABDOMEN: Severe distended. Positive bowel sounds times four quadrants. Tender in lower quadrants. Positive fluid wave. EXTREMITIES: Positive trace edema. LABORATORY DATA: CBC, metabolic panel have been reviewed and notable for potassium of 3.3, albumin of 1.8. CT of the abdomen and pelvis shows cirrhosis, cholelithiasis, large amount of ascites has increased, diverticulosis, right lower lobe atelectasis or infiltrate. Small right pleural effusion. ASSESSMENT AND PLAN: This is a 61-year-old female with a history of nonalcoholic steatohepatitis, liver cirrhosis, portal hypertension, esophageal varices, diabetes, hypertension, hyperlipidemia, chronic pleural effusion status post chest pigtail catheter and pleurodesis, migraine headaches, chronic vertigo, obesity, depression, anemia, leukopenia, thrombocytopenia, history of Clostridium (C.) difficile and reflux, who presented to the emergency room with worsening abdominal distention, cough, fatigue, and weakness. She was found to have severe abdominal distention with large amount of ascites. Admitted and was found to have possible right lower lobe atelectasis and effusion, unchanged compared to prior study. The patient's current issues are as follows: 1. Recurrent ascites secondary to nonalcoholic steatohepatitis causing liver cirrhosis. The patient is to have paracentesis for therapeutic purposes. Continue with spironolactone and nadolol, Protonix. 2. Cough, most likely secondary to pleural effusion. Possible right lower lobe pneumonia, community acquired. On ceftriaxone and azithromycin. 3. Low potassium, supplement. 4. History of hypertension. Continue home medications. 5. Type 2 diabetes. On Lantus and insulin sliding scale. Consistent carbohydrate diet. 6. Dyslipidemia, chronic. 7. Depression. On Lexapro. 8. History of nonalcoholic steatohepatitis and liver cirrhosis. The patient will need a paracentesis and outpatient followup with Dr. Cesar. No fever or chills. Currently on antibiotics for right lower lobe pneumonia.
[2017-02-26 16:00] VITALS: BP 113/55
[2017-02-26 22:00] VITALS: BP 115/52
[2017-02-26] MEDS: traZODone 50 MG TAB PO SCH (22:12)
[2017-02-26] MEDS: AMITRIPTYLINE 25 MG TAB PO SCH (22:12)
[2017-02-26] MEDS: AZITHROMYCIN INJ 500 MG, VIAL MATE ADAPTER 1 EACH in D5W 250 ML IV SCH (22:13)
[2017-02-26] MEDS: cefTRIAXone SOD 2 GM in D5W MINI-BAG PLUS 50 ML IV SCH (23:55)
[2017-02-27] MEDS: MORPHINE 2 MG/ML 1ML SYRINGE IV PRN ×5 (02:03→22:12)
[2017-02-27 06:00] VITALS: BP 106/54
[2017-02-27] MEDS: HEPARIN SOD (PORCINE) 5000 UNITS/ML VIAL SC SCH ×3 (06:02→22:17)
[2017-02-27 06:35] LABS: BASO % 0.6 % (0.0-1.0); EOS # 0.1 K/mm3 (0.0-0.50); EOS % 1.5 % (0.0-3.0); LARGE UNSTAINED CELL # 0.1 K/mm3 (0.0-0.4); LARGE UNSTAINED CELL % 1.8 % (0.0-4.0); LYMPH # 0.7 K/mm3 (1.5-4.5); LYMPH % 14.2 % (24.0-44.0); MEAN CORPUSCULAR HEMOGLOBIN 31.7 pg (27.0-33.0); MEAN CORPUSCULAR HGB CONC 31.8 g/dl (32.0-36.5); MEAN CORPUSCULAR VOLUME 99.7 fl (80.0-96.0); MONO # 0.2 K/mm3 (0.0-0.8); MONO % 5.1 % (0.0-5.0); NEUTROPHILS # 3.7 K/mm3 (1.8-7.7); NEUTROPHILS % 76.9 % (36.0-66.0); PLATELET COUNT, AUTOMATED 137 k/mm3 (150-450); RED CELL DISTRIBUTION WIDTH 13.6 % (11.5-14.5); WHITE BLOOD COUNT 4.7 K/mm3 (4.0-10.0)
[2017-02-27 06:55] LABS: ALBUMIN 1.8 GM/DL (3.2-5.2); ALBUMIN/GLOBULIN RATIO 0.38 (1.00-1.93); ALKALINE PHOSPHATASE 345 U/L (45-117); ALT/SGPT 13 U/L (12-78); ANION GAP 7 MEQ/L (8-16); AST/SGOT 15 U/L (15-37); BILIRUBIN,TOTAL 0.4 MG/DL (0.2-1.0); BLOOD UREA NITROGEN 12 MG/DL (7-18); CALCIUM LEVEL 7.8 MG/DL (8.8-10.2); CARBON DIOXIDE LEVEL 32 MEQ/L (21-32); CHLORIDE LEVEL 99 MEQ/L (98-107); CREATININE FOR GFR 0.92 MG/DL (0.55-1.02); GLOMERULAR FILTRATION RATE > 60.0 (>45); GLUCOSE, FASTING 299 MG/DL (80-110); SODIUM LEVEL 138 MEQ/L (136-145); TOTAL PROTEIN 6.5 GM/DL (6.4-8.2)
[2017-02-27] MEDS: SPIRONOLACTONE 25 MG TAB PO SCH (09:00)
[2017-02-27] MEDS: SPIRONOLACTONE 50 MG TAB PO SCH (09:00)
[2017-02-27] MEDS: FUROSEMIDE 40 MG TAB PO SCH ×2 (09:00→16:56)
[2017-02-27] MEDS: HumaLOG INSULIN (NovoLOG) PER UNIT SC SCH ×4 (09:06→22:18)
[2017-02-27] MEDS: MECLIZINE 25 MG TABLET PO SCH ×2 (09:06→22:16)
[2017-02-27] MEDS: ESCITALOPRAM OXALATE 10 MG TAB (LEXAPRO) PO SCH (09:07)
[2017-02-27] MEDS: ASPIRIN 81 MG ENTERIC TAB PO SCH (09:07)
[2017-02-27] MEDS: PANTOPRAZOLE 40MG TAB (PROTONIX) PO SCH (09:07)
[2017-02-27] MEDS: NADOLOL 20MG TABLET PO SCH (09:07)
[2017-02-27] MEDS: FERROUS SULFATE 325MG TAB PO SCH ×3 (09:07→22:17)
[2017-02-27 15:45] VITALS: BP 133/64
[2017-02-27 16:03] LABS: PERITONEAL FL COLOR PINK (COLORLESS)
--- NOTE | 2017-02-27 16:13 | REP ---
ULTRASOUND GUIDED PARACENTESIS: The procedure was performed under the direct supervision of Dr. Fu. The risks and benefits of the procedure were explained to the patient and informed consent was obtained. The largest pocket of fluid was localized in the right upper quadrant using ultrasound guidance. The skin was prepped and draped in a sterile fashion. 1% Lidocaine was used as a local anesthetic. An 8-Afghan [id number] catheter was inserted using trocar technique. 2500 mL of pink colored fluid was withdrawn with a sample sent to the lab for analysis. The patient tolerated the procedure well and there were no immediate complications. Reviewed by ARMANDO Barlow 02/27/2017 04:41 PEdited and Signed by Lonny Fu MD 02/28/2017 04:00 P
[2017-02-27 16:20] LABS: LDH, BODY FLUID 38 U/L (NOT ESTABLISHED); TOTAL PROTEIN, BODY FLUID 0.7 G/DL (NOT ESTABLISHED)
[2017-02-27 16:28] LABS: RBC PERITONEAL FLUID < 10 (<10mm3 cells/uL); TNC PERITONEAL FLUID 195 cells/uL (0-20)
[2017-02-27 16:29] LABS: BF DIFF IF INDICATED? YES (NO); CC BF DIFF EXAM CYTOCENTRIFUGE
[2017-02-27] MEDS: FUROSEMIDE 40 MG/4 ML VIAL (J1940) IV SCH (21:30)
[2017-02-27 21:47] VITALS: BP 129/60
[2017-02-27 22:00] VITALS: BP 129/60
[2017-02-27] MEDS: traZODone 50 MG TAB PO SCH (22:16)
[2017-02-27] MEDS: AMITRIPTYLINE 25 MG TAB PO SCH (22:17)
[2017-02-27] MEDS: LEVEMIR (INSULIN DETEMIR) 1 UNITS/0.01ML SC SCH (22:20)
[2017-02-27] MEDS: AZITHROMYCIN INJ 500 MG, VIAL MATE ADAPTER 1 EACH in D5W 250 ML IV SCH (22:24)
[2017-02-27] MEDS: BENZONATATE 100 MG CAP PO PRN (22:42)
[2017-02-27] MEDS: cefTRIAXone SOD 2 GM in D5W MINI-BAG PLUS 50 ML IV SCH (23:30)
[2017-02-28 02:09] VITALS: BP 144/62
[2017-02-28] MEDS: FUROSEMIDE 40 MG/4 ML VIAL (J1940) IV SCH ×2 (02:22→08:00)
[2017-02-28] MEDS: BENZONATATE 100 MG CAP PO PRN ×2 (05:03→21:53)
[2017-02-28] MEDS: HEPARIN SOD (PORCINE) 5000 UNITS/ML VIAL SC SCH ×3 (05:04→21:54)
[2017-02-28 05:43] LABS: BASO % 0.4 % (0.0-1.0); EOS # 0.1 K/mm3 (0.0-0.50); EOS % 1.6 % (0.0-3.0); LARGE UNSTAINED CELL # 0.1 K/mm3 (0.0-0.4); LYMPH # 0.8 K/mm3 (1.5-4.5); LYMPH % 18.1 % (24.0-44.0); MEAN CORPUSCULAR HEMOGLOBIN 31.8 pg (27.0-33.0); MEAN CORPUSCULAR VOLUME 96.2 fl (80.0-96.0); MONO # 0.2 K/mm3 (0.0-0.8); MONO % 6.3 % (0.0-5.0); NEUTROPHILS # 2.7 K/mm3 (1.8-7.7); NEUTROPHILS % 71.6 % (36.0-66.0); PLATELET COUNT, AUTOMATED 130 k/mm3 (150-450); RED CELL DISTRIBUTION WIDTH 13.6 % (11.5-14.5); WHITE BLOOD COUNT 3.8 K/mm3 (4.0-10.0)
--- NOTE | 2017-02-28 05:57 | IPN ---
DATE OF SERVICE: 02/27/2017 Patient seen and examined at bedside. Chart has been reviewed. She continues to have cough with shortness of breath due to increased abdominal ascites still with very diffuse discomfort due to abdominal distention. She slept well overnight. No chills. Vitals: Temperature 98, pulse 83, respiratory 18, blood pressure 133/64, 92% on room air. Generally, patient is awake, alert, oriented times three, answering questions appropriately. Lungs: Diminished crackles bilateral bases. Heart: S1, S2 sinus rhythm. Abdomen: Distended, obese, positive bowel sounds. Mildly tender. No rebound or guarding. Positive ascites and fluid wave. Extremities: 2+ pitting edema bilaterally. CBC, metabolic panel have been reviewed. ASSESSMENT AND PLAN: This is a 61-year-old female with history of non-alcoholic steatohepatitis, liver cirrhosis, portal hypertension, esophageal varices, diabetes, hypertension, hyperlipidemia, chronic pleural effusion status post pigtail catheter, pleurodesis, migraine headaches, chronic vertigo, obesity, depression, history of Clostridium difficile colitis, leukemia, thrombocytopenia , leukopenia, anemia, reflux, who presents to the emergency room with worsening of bowel distention, cough, fatigue and weakness. Last paracentesis was 2 months ago. She was found to have severe abdominal distention and large amount of ascites, admitted for possible right lower lobe pneumonia and treatment for ascites. IMPRESSION: 1. Recurrent ascites secondary to non-alcoholic steatohepatitis causing liver cirrhosis. Last paracentesis was 2 months ago. Patient underwent paracentesis today with 2.5 liters removed. She is currently continued on spironolactone, nadolol and Protonix. 2. Cough most likely secondary to pleural effusion, less likely right lower lobe pneumonia but still on ceftriaxone, azithromycin. 3. Hypertension, continue home medications. 4. Type 2 diabetes, Lantus and insulin sliding scale. 5. Dyslipidemia. 6. Chronic depression. Lexapro. 7. History of non-alcoholic steatohepatitis with liver cirrhosis varices, no active signs of GI bleed. She follows with Dr. Cesar as outpatient. Will need immediate followup. JOSELUIS
[2017-02-28 06:00] VITALS: BP 92/46
[2017-02-28 06:02] LABS: ALBUMIN 1.8 GM/DL (3.2-5.2); ALBUMIN/GLOBULIN RATIO 0.35 (1.00-1.93); ALKALINE PHOSPHATASE 345 U/L (45-117); ALT/SGPT 12 U/L (12-78); ANION GAP 6 MEQ/L (8-16); AST/SGOT 16 U/L (15-37); BILIRUBIN,TOTAL 0.4 MG/DL (0.2-1.0); BLOOD UREA NITROGEN 9 MG/DL (7-18); CALCIUM LEVEL 8.2 MG/DL (8.8-10.2); CARBON DIOXIDE LEVEL 34 MEQ/L (21-32); CHLORIDE LEVEL 95 MEQ/L (98-107); CREATININE FOR GFR 0.85 MG/DL (0.55-1.02); GLOMERULAR FILTRATION RATE > 60.0 (>45); GLUCOSE, FASTING 246 MG/DL (80-110); MAGNESIUM LEVEL 1.9 MG/DL (1.8-2.4); POTASSIUM SERUM 3.4 MEQ/L (3.5-5.1); SODIUM LEVEL 135 MEQ/L (136-145); TOTAL PROTEIN 6.9 GM/DL (6.4-8.2)
[2017-02-28 06:45] VITALS: BP 142/81
[2017-02-28] MEDS ORDERED: POTASSIUM CHLORIDE 10 MEQ SR TABLET PO ONE (09:00)
[2017-02-28] MEDS: HumaLOG INSULIN (NovoLOG) PER UNIT SC SCH ×4 (09:11→21:56)
[2017-02-28] MEDS: LEVEMIR (INSULIN DETEMIR) 1 UNITS/0.01ML SC SCH ×2 (09:12→21:56)
[2017-02-28] MEDS: ESCITALOPRAM OXALATE 10 MG TAB (LEXAPRO) PO SCH (09:12)
[2017-02-28] MEDS: MECLIZINE 25 MG TABLET PO SCH ×2 (09:13→21:54)
[2017-02-28] MEDS: FERROUS SULFATE 325MG TAB PO SCH ×3 (09:13→21:53)
[2017-02-28] MEDS: PANTOPRAZOLE 40MG TAB (PROTONIX) PO SCH (09:13)
[2017-02-28] MEDS: ASPIRIN 81 MG ENTERIC TAB PO SCH (09:13)
[2017-02-28] MEDS: FUROSEMIDE 40 MG TAB PO SCH ×2 (09:16→17:43)
[2017-02-28] MEDS: SPIRONOLACTONE 25 MG TAB PO SCH (09:16)
[2017-02-28] MEDS: SPIRONOLACTONE 50 MG TAB PO SCH (09:16)
[2017-02-28] MEDS: NADOLOL 20MG TABLET PO SCH (09:17)
[2017-02-28 10:00] VITALS: BP 122/53
--- NOTE | 2017-02-28 13:57 | IPN ---
DATE: 02/28/2017 Patient is seen and examined in the room today. Patient had a paracentesis done yesterday. Patient tolerated the procedure well. Patient stated her breathing is improving after the procedure. Patient started experiencing left lower rib pain exacerbated during deep breaths, however, heating pad has been helping her. OBJECTIVE: Vital signs: Temperature is 97.9, pulse 67, respirations 16, blood pressure 142/81, pulse oximetry 96% on room air. General: No sign of acute distress. Morbidly obese, alert and oriented times three. HEENT: Normocephalic, atraumatic. Extraocular movement grossly intact. Cardiovascular: Positive S1, S2, regular rate. Lungs: Decreased breath sounds bilaterally. No wheezes. Abdomen: Soft, nontender, nondistended. Bowel sounds present. Extremities: 1+ pitting edema bilaterally. LABORATORY DATA: WBC 3.8, hemoglobin 9, hematocrit 27.2, platelet count is 130. Sodium is 135, potassium 3.4, chloride 95, carbon dioxide 34, albumin 9, creatinine 0.85, glomerular filtration rate is greater than 60, fasting glucose 246, calcium 8.2, magnesium 1.9. Total bilirubin 0.4, AST 16, AST 12, alkaline phosphatase 345, total protein 6.9, albumin 1.8. ASSESSMENT AND PLAN: 1. Recurrent ascites secondary to liver cirrhosis from nonalcoholic steatohepatitis (HICKS). Patient had a paracentesis done yesterday, tolerated the procedure well. Patient's last paracentesis was approximately 2 months ago. The preliminary peritoneal fluid shows no organism seen. We will follow with future report. 2. Esophageal varices with portal hypertension. Patient is on nadolol, Lasix and spironolactone. 3. Hypertension. Currently blood pressure in satisfactory range. Patient did have a history of fall with blood pressure. 4. History of recurrent syncope episode. Multiple workup was performed in the past. There is no specific etiology contributing to patient's syncopal fall. There were a few times the patient would also positive for orthostasis and there were a few times patient had concurrent migraine headache when the syncope occurred, however, there is no common trigger to explain patient's recurrent syncope episode. Patient will be on fall precautions. 5. Type 2 diabetes on Lantus and sliding scale. 6. Dyslipidemia. 7. Chronic depression on Lexapro. 8. Deep venous thrombosis (DVT) prophylaxis. Patient is on heparin. Edited by: YI 03/02/17 JOSELUIS
[2017-02-28 14:00] VITALS: BP 114/59
[2017-02-28] MEDS ORDERED: AZITHROMYCIN 250 MG TAB PO SCH (21:00)
[2017-02-28] MEDS: AMITRIPTYLINE 25 MG TAB PO SCH (21:53)
[2017-02-28] MEDS: traZODone 50 MG TAB PO SCH (21:53)
[2017-02-28] MEDS: ONDANSETRON 4MG/2ML VIAL (J2405) IV PRN (21:56)
[2017-02-28] MEDS: MORPHINE 2 MG/ML 1ML SYRINGE IV PRN (21:57)
[2017-02-28 22:00] VITALS: BP 117/55
[2017-02-28] MEDS: cefTRIAXone SOD 2 GM in D5W MINI-BAG PLUS 50 ML IV SCH (23:05)
[2017-03-01] MEDS: BENZONATATE 100 MG CAP PO PRN (02:43)
[2017-03-01] MEDS: HEPARIN SOD (PORCINE) 5000 UNITS/ML VIAL SC SCH ×2 (05:57→13:09)
[2017-03-01 05:59] VITALS: BP_SYST 108; BP_SYST 116; BP_SYST 121; BP_DIAS 55; BP_DIAS 56
[2017-03-01 06:00] VITALS: BP 103/55
[2017-03-01 06:11] LABS: BASO % 0.5 % (0.0-1.0); EOS % 1.2 % (0.0-3.0); LARGE UNSTAINED CELL # 0.1 K/mm3 (0.0-0.4); LARGE UNSTAINED CELL % 2.4 % (0.0-4.0); LYMPH # 0.7 K/mm3 (1.5-4.5); LYMPH % 19.8 % (24.0-44.0); MEAN CORPUSCULAR HEMOGLOBIN 31.6 pg (27.0-33.0); MEAN CORPUSCULAR HGB CONC 32.9 g/dl (32.0-36.5); MEAN CORPUSCULAR VOLUME 96.1 fl (80.0-96.0); MONO # 0.2 K/mm3 (0.0-0.8); MONO % 5.9 % (0.0-5.0); NEUTROPHILS # 2.4 K/mm3 (1.8-7.7); NEUTROPHILS % 70.2 % (36.0-66.0); PLATELET COUNT, AUTOMATED 125 k/mm3 (150-450); RED CELL DISTRIBUTION WIDTH 13.5 % (11.5-14.5); WHITE BLOOD COUNT 3.4 K/mm3 (4.0-10.0)
[2017-03-01 06:23] LABS: ALBUMIN 1.7 GM/DL (3.2-5.2); ALBUMIN/GLOBULIN RATIO 0.33 (1.00-1.93); ALKALINE PHOSPHATASE 345 U/L (45-117); ALT/SGPT 13 U/L (12-78); ANION GAP 5 MEQ/L (8-16); AST/SGOT 16 U/L (15-37); BILIRUBIN,TOTAL 0.4 MG/DL (0.2-1.0); BLOOD UREA NITROGEN 10 MG/DL (7-18); CARBON DIOXIDE LEVEL 34 MEQ/L (21-32); CHLORIDE LEVEL 101 MEQ/L (98-107); CREATININE FOR GFR 0.85 MG/DL (0.55-1.02); GLOMERULAR FILTRATION RATE > 60.0 (>45); GLUCOSE, FASTING 173 MG/DL (80-110); MAGNESIUM LEVEL 1.9 MG/DL (1.8-2.4); POTASSIUM SERUM 3.2 MEQ/L (3.5-5.1); SODIUM LEVEL 140 MEQ/L (136-145); TOTAL PROTEIN 6.8 GM/DL (6.4-8.2)
[2017-03-01] MEDS ORDERED: POTASSIUM CHLORIDE 10 MEQ SR TABLET PO ONE (07:30)
[2017-03-01] MEDS ORDERED: K-TA1TAB PO (08:15)
[2017-03-01] MEDS: HumaLOG INSULIN (NovoLOG) PER UNIT SC SCH ×2 (09:22→13:08)
[2017-03-01 09:23] VITALS: BP 129/61
[2017-03-01] MEDS: PANTOPRAZOLE 40MG TAB (PROTONIX) PO SCH (09:23)
[2017-03-01] MEDS: ASPIRIN 81 MG ENTERIC TAB PO SCH (09:23)
[2017-03-01] MEDS: NADOLOL 20MG TABLET PO SCH (09:23)
[2017-03-01] MEDS: FERROUS SULFATE 325MG TAB PO SCH (09:23)
[2017-03-01] MEDS: SPIRONOLACTONE 25 MG TAB PO SCH (09:24)
[2017-03-01] MEDS: FUROSEMIDE 40 MG TAB PO SCH (09:24)
[2017-03-01] MEDS: ESCITALOPRAM OXALATE 10 MG TAB (LEXAPRO) PO SCH (09:24)
[2017-03-01] MEDS: MECLIZINE 25 MG TABLET PO SCH (09:24)
[2017-03-01] MEDS: SPIRONOLACTONE 50 MG TAB PO SCH (09:24)
[2017-03-01] MEDS: LEVEMIR (INSULIN DETEMIR) 1 UNITS/0.01ML SC SCH (09:25)
[2017-03-01 14:00] VITALS: BP 113/59
--- NOTE | 2017-03-01 21:39 | DSES ---
DATE OF ADMISSION: 02/25/2017 DATE OF DISCHARGE: 03/01/2017 PRIMARY CARE PROVIDER: Suzy Cesar MD CONSULTANTS: None. PROCEDURES: None. COMPLICATIONS: None. DISCHARGE DIAGNOSES: 1. Recurrent ascites secondary to liver cirrhosis from HICKS. 2. Liver cirrhosis from HICKS. 3. Esophageal varices with portal hypertension. 4. Hypertension. 5. History of recurrent syncope episodes. 6. Migraine headaches. 7. Uncontrolled type 2 diabetes. 8. Dyslipidemia. 9. Chronic depression. HOSPITALIZATION COURSE: The patient is a 61-year-old female who presented to [facility] on 02/25/2017 with significant abdominal distention and cough. Imaging study was performed. The patient was found with a large amount of ascitic fluid. Due to concern for infection, the patient was started on empiric antibiotics. The patient had ultrasonic paracentesis done on 02/27/2017 , approximately 2.5 liters of ascites. The patient tolerated the procedure. The ascitic fluid was sent for diagnostic study. Later, the results came back negative and on 03/01/2017, the patient was determined medically stable for discharge with recommendations to follow with primary care provider in 7 to 10 days. The patient is recommended to followup with her gastrointestinal doctor regarding her recurrent ascitic fluid. OBJECTIVE: VITAL SIGNS: Temperature 98.2, pulse 76, respirations 18, blood pressure is 103/55, pulse oximetry 98% on room air. LABORATORY DATA: WBC 3.4, hemoglobin 9, hematocrit 27.3, platelet count is 125. Sodium is 140, potassium 3.2, chloride is 101, carbon dioxide 34, BUN 10, creatinine 0.85, GFR greater than 60, fasting glucose 117, A1/c is 9.1, calcium 8, magnesium 1.9, total bilirubin 0.4, AST 16, ALT 13, alkaline phosphatase 345, total protein 6.8, albumin 1.7. Ascitic fluid analysis shows glucose of 336, total protein 0.7, albumin 3.3, LDH 38, total nucleated cells is 195, neutrophil percentage is 17. Microbiology: Blood culture from 02/25/2017 is negative after 72 hours times two sets. Official report pending. Peritoneal fluid gram stain from 02/27/2017, final results show no organisms seen, few WBCs. IMAGING STUDIES: Portable chest x-ray on 02/25/2017 showed right lower lobe atelectasis or infiltrate and right pleural effusion, unchanged compared to previous study. CT of the abdomen and pelvis without contrast on 02/25/2017 showed cirrhosis, cholelithiasis, large amount of ascitic fluid that is increased compared to the previous study, diverticulosis, right lower lobe atelectasis or infiltrate, small right pleural effusion, increased compared to previous study. DISCHARGE MEDICATIONS: -potassium chloride 20 mEq by mouth daily for 14 days - amitriptyline 25 mg by mouth at night - aspirin 81 mg by mouth daily - calcium/vitamin D supplement one tablet by mouth twice a day - Benadryl 25 mg by mouth at night - Lexapro 20 mg by mouth daily - Nexium 40 mg by mouth daily - ferrous sulfate 325 mg by mouth three times a day - Lasix 40 mg by mouth twice a day - Lovenox before food and nightly - Lantus 66 units subcutaneously twice a day - meclizine 25 mg by mouth twice a day - nadolol 20 mg by mouth daily - spironolactone 125 mg by mouth daily - trazodone 50 mg by mouth at night DISCHARGE INSTRUCTIONS: Discontinue line, discharge home, activity as tolerated. Consistent carbohydrate diet as tolerated. The patient should use insulin as instructed and the patient should followup with primary care provider for better insulin adjustment. The patient should obtain laboratory data two days prior to the primary care provider visit. The patient is recommended to have more frequent followup with gastrointestinal specialist for the patient's recurrent ascites. DISCHARGE CONDITION: Fair. DISCHARGE TIME: Greater than 20 minutes. MTDD
== END 2017-03-01 16:38 | disposition home or self-care (01) | DRG 433 ==
LOC: M ED 14:54 → EDBD 14:54 → M ED INP 18:17 → M MS5PR 20:30 → M MSPAV 02-27 21:19
PROVIDERS: ADMIT Internal Medicine; ATTEND Internal Medicine
PROC: 0D9 Gastrointestinal System, Drainage (ICD-10-PCS; principal; 2017-02-27)
DX: K74.60 Unspecified cirrhosis of liver (principal); R18.8 Other ascites; I85.10 Secondary esophageal varices without bleeding; K75.81 Nonalcoholic steatohepatitis (NASH); I10 Essential (primary) hypertension; E78.5 Hyperlipidemia, unspecified; F32.9 Major depressive disorder, single episode, unspecified; E11.9 Type 2 diabetes mellitus without complications; G43.909 Migraine, unspecified, not intractable, without status migrainosus; Z79.82 Long term (current) use of aspirin; Z79.899 Other long term (current) drug therapy; Z88.8 Allergy status to other drugs, medicaments and biological substances; D41.9 Neoplasm of uncertain behavior of unspecified urinary organ; E66.9 Obesity, unspecified; D50.9 Iron deficiency anemia, unspecified; R42 Dizziness and giddiness; E87.6 Hypokalemia

== ENCOUNTER → 2017-04-10 | Outpatient (REF) | payer OTHER ==
[~2017-04-10] MED LIST changes: +LASI40TA PO
[2017-04-10 11:14] LABS: MEAN CORPUSCULAR HEMOGLOBIN 29.4 pg (27.0-33.0); MEAN CORPUSCULAR HGB CONC 31.9 g/dl (32.0-36.5); MEAN CORPUSCULAR VOLUME 91.9 fl (80.0-96.0); RED CELL DISTRIBUTION WIDTH 14.3 % (11.5-14.5); WHITE BLOOD COUNT 6.6 K/mm3 (4.0-10.0)
[2017-04-10 11:55] LABS: CALCIUM LEVEL 8.4 MG/DL (8.8-10.2); CREATININE FOR GFR 1.5 MG/DL (0.55-1.02); GLOMERULAR FILTRATION RATE 37.5 (>45); POTASSIUM SERUM 4.6 MEQ/L (3.5-5.1)
== END ==
LOC: M SFHCLERA 08:06
PROVIDERS: ATTEND Family Medicine
DX: K75.81 Nonalcoholic steatohepatitis (NASH) (principal); R30.0 Dysuria

== ENCOUNTER 2017-05-09 21:16 | Emergency (ER) | payer OTHER ==
[~2017-05-09] VITALS: Ht 154.9 cm; Wt 105.9 kg
[2017-05-09] MEDS ORDERED: SPIR100T PO (21:28)
[2017-05-09 22:45] LABS: BASO % 0.5 % (0.0-1.0); EOS # 0.1 10^3/uL (0.0-0.50); EOS % 2.4 % (0.0-3.0); IMMATURE GRANULOCYTE % 0.3 % (0-0); LYMPH # 0.8 10^3/uL (1.5-4.5); LYMPH % 21.2 % (24.0-44.0); MEAN CORPUSCULAR HEMOGLOBIN 31.1 pg (27.0-33.0); MEAN CORPUSCULAR HGB CONC 31.7 g/dl (32.0-36.5); MEAN CORPUSCULAR VOLUME 98.1 fl (80.0-96.0); MONO # 0.3 10^3/uL (0.0-0.8); MONO % 8.7 % (0.0-5.0); NEUTROPHILS # 2.5 10^3/uL (1.8-7.7); NEUTROPHILS % 66.9 % (36.0-66.0); PLATELET COUNT, AUTOMATED 78 10^3/uL (150-450); RED CELL DISTRIBUTION WIDTH 18.6 % (11.5-14.5); WHITE BLOOD COUNT 3.7 10^3/uL (4.0-10.0)
[2017-05-09 22:48] LABS: ADD MORPHOLOGY? NO
[2017-05-09 22:53] LABS: INR 1.08
[2017-05-09 22:55] LABS: ALBUMIN 2.9 GM/DL (3.2-5.2); ALBUMIN/GLOBULIN RATIO 0.88 (1.00-1.93); BILIRUBIN,DIRECT 0.2 MG/DL (0.0-0.2); BILIRUBIN,TOTAL 0.5 MG/DL (0.2-1.0); CALCIUM LEVEL 8.9 MG/DL (8.8-10.2); CREATININE FOR GFR 1.38 MG/DL (0.55-1.02); GLOMERULAR FILTRATION RATE 41.2 (>45); POTASSIUM SERUM 3.6 MEQ/L (3.5-5.1); TOTAL PROTEIN 6.2 GM/DL (6.4-8.2)
--- NOTE | 2017-05-09 23:40 | REPUSA ---
CT of the abdomen and pelvis without contrast Clinical statement: Pain. Technique: Multiple axial CT images were obtained from the base of the lungs to the floor of the pelv is utilizing 5 mm axial slices without administration of contrast. Coronal and sagittal reconstructio ns were also obtained. Comparison: 10/20/2016. Findings: Chest: There is a small right-sided pleural effusion. Abdomen: The kidneys are normal in size bilaterally. There is no evidence of hydronephrosis or nephro lithiasis. A gallstone filled gallbladder is again noted. No pericholecystic inflammatory changes are seen. The liver, spleen, pancreas, and adrenal glands are stable. Nodularity to the liver contour is unchanged. The spleen is enlarged. The aorta demonstrates normal caliber and contour. There is no ab dominal lymphadenopathy. There is moderate amount of upper abdominal ascites. Pelvis: The bowel is unremarkable, with no obstructive or inflammatory changes. There is diffuse sigm oid diverticulosis, without evidence of diverticulitis. Umbilical hernia containing only omental fat and fluid is again noted. The urinary bladder is within normal limits. There is no pelvic lymphadenop athy. There is moderate amount of pelvic ascites. The other pelvic structures appear unremarkable. Bones: There are no suspicious osseous abnormalities seen. Impression: 1. Moderate amount of abdominal and pelvic ascites. 2. Stable cirrhosis. No focal hepatic masses. 3. Splenomegaly. 4. Gallstone filled gallbladder. No evidence of acute cholecystitis. 5. No obstructive or inflammatory bowel changes. Diffuse sigmoid diverticulosis. 6. Small umbilical hernia containing omental fat and a small amount of fluid.
[2017-05-10] MEDS ORDERED: MORPHINE 2 MG/ML 1ML SYRINGE IV ONE (01:00)
[2017-05-10 02:06] VITALS: BP 110/55
--- NOTE | 2017-05-12 07:07 | ED PDOC ---
[facility] ashely rodgers is pcp. faxed formal report of ct abd/p for fu Ana Manrique MD May 12, 2017 07:07
[2017-05-28 12:50] LABS: IMMATURE PLATELET FRACTION % 6.8 % (0.0-9.6); PLATELET F 75
== END 2017-05-10 02:30 | disposition home or self-care (01) ==
LOC: EDBD 21:16 → M ED 21:16
DX: K74.60 Unspecified cirrhosis of liver (principal); D61.818 Other pancytopenia; G43.909 Migraine, unspecified, not intractable, without status migrainosus; I25.10 Atherosclerotic heart disease of native coronary artery without angina pectoris; E11.9 Type 2 diabetes mellitus without complications; I10 Essential (primary) hypertension; D69.6 Thrombocytopenia, unspecified; F32.9 Major depressive disorder, single episode, unspecified; I85.00 Esophageal varices without bleeding; R18.8 Other ascites; R16.1 Splenomegaly, not elsewhere classified; K80.20 Calculus of gallbladder without cholecystitis without obstruction; K57.30 Diverticulosis of large intestine without perforation or abscess without bleeding; K42.9 Umbilical hernia without obstruction or gangrene; Z79.82 Long term (current) use of aspirin; Z79.4 Long term (current) use of insulin; Z79.899 Other long term (current) drug therapy; Z88.6 Allergy status to analgesic agent; Z88.8 Allergy status to other drugs, medicaments and biological substances; Z91.89 Other specified personal risk factors, not elsewhere classified

== ENCOUNTER → 2017-05-16 | Outpatient (CLI) | payer OTHER ==
--- NOTE | 2017-06-06 02:03 | ECWPNPC ---
PATIENT NAME: SAROJ JOHNSON : 1955 GENDER: FEMALE VISIT DATE: 05/16/2017 DISCHARGE DATE: 05/16/17 1040 VISIT LOCKED DATE TIME: PHYSICIAN: LEN PERKINS RESOURCE: LEN PERKINS REASON FOR APPOINTMENT 1. END STAGE LIVER FUNCTION PAIN NEAR SURGICAL SITE HISTORY OF PRESENT ILLNESS NEW PATIENT CONSULT: 61 Y/O FEMALE REFERRED BY DR. ABI HERNDON FOR ABDOMINAL PAIN.HISTORY OF END STAGE LIVER DISEASE DUE TO HICKS.HAD TALC PLEURODESIS FOR RECURRENT PLEURAL EFFUSIONS.HAS CHRONIC PAIN OVER RIGHT CHEST POST SURGICAL.RATING PAIN VAS 7/10.PAIN IS AGGREVATED WITH USE OF RIGHT ARM. WHEN DID YOUR PAIN FIRST START? . BRIEFLY DESCRIBE HOW YOUR PAIN STARTED? . HOW DOES YOUR PAIN CHANGE WITH TIME? . DOES YOUR PAIN AWAKEN YOU FROM SLEEP? . HOW MANY HOURS OF SLEEP DO YOU NORMALLY GET? . ANY DIAGNOSTIC TESTING? . FACILITY WHERE TESTS WERE DONE? ____. PAIN TREATMENT TREATMENT YES CANCER HAVE YOU EVER HAD ANY TYPE OF CANCER?NO NO. PAIN SCREENING: PATIENT HAS A COMPLAINT OF ACUTE OR CHRONIC PAIN :YES FALL RISK SCREENING: SCREENING :NO FALLS IN THE PAST YEAR ELLISON INVENTORY: QUESTIONNAIRE ASSESSEDTBD SCORE VALUE CALCULATED TBD CURRENT MEDICATIONS TAKING ACCU-CHEK SOFT TOUCH DEVICE - MISCELLANEOUS DIRECTED _ FOUR TIMES DAILY, NOTES: LANCING DEVICE TAKING WHEELCHAIR _ MISCELLANEOUS DIRECTED TAKING VENTOLIN HFA 108 (90 BASE) MCG/ACT AEROSOL SOLUTION 2 PUFFS NEEDED INHALATION EVERY 4 HRS TAKING POCKET SPACER - DEVICE DIRECTED _ DAILY TAKING FLONASE 50 MCG/ACT SUSPENSION 1 SPRAY IN EACH NOSTRIL NASALLY ONCE A DAY TAKING OXYCODONE HCL 5 MG TABLET 1 TABLET ORALLY EVERY 6 HRS NEEDED FOR SEVERE PAIN (MDD:2) TAKING LANTUS 100 UNIT/ML SOLUTION DIRECTED SUBCUTANEOUS 70 UNITS TWICE A DAY TAKING LEXAPRO 20 MG TABLET 1 TABLET ORALLY ONCE A DAY TAKING SPIRONOLACTONE 100 MG TABLET 1 TABLET ORALLY TWICE A DAY TAKING NEXIUM 40 MG CAPSULE DELAYED RELEASE 1 CAPSULE ORALLY ONCE A DAY TAKING MECLIZINE HCL 25 MG TABLET 1 TABLET ORALLY TWO TIMES A DAY TAKING FUROSEMIDE 40 MG TABLET 1 TABLET ORALLY BID, NOTES: FOR USE WITH 20MG FOR A TOTAL OF 60MG BID TAKING NADOLOL 40 MG TABLET 1 TABLET ORALLY ONCE A DAY TAKING LASIX 20 MG TABLET 1 TABLET FOR USE WITH 40MG FOR 60MG BID ORALLY BID TAKING NOVOLOG 100 UNIT/ML SOLUTION SSI SUBCUTANEOUS DAILY (MDD; 60 UNITS) UNKNOWN ASPIR-81 81 MG TABLET DELAYED RELEASE 1 TABLET ORALLY ONCE A DAY UNKNOWN CALCIUM 500 + D 500-125 MG-UNIT TABLET 1 TABLET WITH FOOD ORALLY DAILY UNKNOWN IRON 90 (18 FE) MG TABLET 2 TABLETS ORALLY ONCE A DAY UNKNOWN ACCU-CHEK JORDAN - STRIP DIRECTED IN VITRO FOUR TIMES DAILY UNKNOWN ACCU-CHEK SOFT TOUCH DEVICE 1 UNIT ---- 1 _ FOUR TIMES DAILY MEDICATION LIST REVIEWED AND RECONCILED WITH THE PATIENT PAST MEDICAL HISTORY DIABETES (TYPE 2) HTN HIGH CHOLESTEROL LOW PLATELETS (LIKELY SECONDARY TO SPLENOMEGALY) END STAGE LIVER DISEASE SECONDARY TO HICKS VERTIGO SYNCOPE RECURRENT RIGHT PLEURAL EFFUSIONS ALLERGIES ALTACAINE: CHEST PAINS: ALLERGY HYDROCHLOROTHIAZIDE: CHEST PAINS: ALLERGY ADHESIVE TAPE: RASH: ALLERGY ACETAMINOPHEN: DUE TO LIVER ISSUES: ALLERGY IBUPROFEN: DUE TO LIVER ISSUES SURGICAL HISTORY HERNIA REPAIR HYSTERECTOMY APPENDICITIS LOWER BACK NERVE BLOCK RIGHT ELBOW RIGHT SHOULDER LEFT SHOULDER TWICE KNEE CHEST TUBE PLUROX TUBE D&C'S HEART CATHETERIZATION PLACEMENT AND REMOVAL OF CHEST TUBE 2016 FAMILY HISTORY FATHER: 60 YRS, DIAGNOSED WITH HEART DISEASE MOTHER: 72 YRS, DIAGNOSED WITH DIABETES, HEART DISEASE, STROKE PATERNAL GRAND FATHER: UNKNOWN PATERNAL GRAND MOTHER: MATERNAL GRAND FATHER: UNKNOWN MATERNAL GRAND MOTHER: UNKNOWN 3 BROTHER(S) , 1 SISTER(S) . 2 SON(S) , 1 DAUGHTER(S) - HEALTHY. BROTHER: HEART ATTACKS, DIABETIC. 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 MARITAL STATUS: . 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 HOSPITALIZATION/MAJOR DIAGNOSTIC PROCEDURE CHILDBIRTH TIMES 3 [facility] 2016 [facility] TRANSFER FROM [place] 2016 [place] 2016 [place]- BREATHING ISSUES 2015 [facility]-BREATHING ISSUES 06/2016 [facility]-BREATHING ISSUES 08/2016 [facility]- PNEUMONIA 12/2016 [facility]-HEADACHE, BREATHING ISSUES 11/2016 [facility]-HYPOTENSION 02/06/17 [facility] - CHF 02/2017 REVIEW OF SYSTEMS REVIEWED BY: PROVIDER: LEN FERNANDES . CONSTITUTIONAL: ANY CHANGE IN YOUR MEDICAL CONDITION? NO . CHILLS NO . FEVER NO . INFECTION: DO YOU HAVE NEW INFECTIONS? NO . DO YOU HAVE HISTORY OF MRSA? NO . MUSCULOSKELETAL: ANY NEW PATTERNS OF PAIN OR NUMBNESS? NO . SYTEMIC LUPUS NO . GASTROENTEROLOGY: ANY NEW CHANGE IN BOWEL CONTROL? NO . BARRETTS ESOPHAGUS NO . CIRRHOSIS NO . HEPATITIS NO . LIVER FAILURE NO . ACID REFLUX NO . UNEXPLAINED WEIGHT LOSS NO . GENITOURINARY: ANY NEW CHANGE IN BLADDER CONTROL? NO . IS THERE A CHANCE YOU COULD BE ? NO . HEMATOLOGY/LYMPH: DO YOU TAKE ANY BLOOD THINNERS? (FOR EXAMPLE- COUMADIN, PLAVIX, AGGRENOX, PLATEL, PRADAXA, OR XARELTO) NO . WHEN WAS YOUR LAST DOSE? DATE: TIME: . LOW PLATELET COUNT NO . SICKLE CELL DISEASE NO . VON WILLIEBRANDS NO . FACTOR V LEIDEN NO . THALLASEMIA NO . ANEMIA NO . EASY BRUISING NO . NEUROLOGY: HAVE YOU FALLEN IN THE PAST 6 MONTHS? YES, PT STATES FROM LOSS OF BALANCE, LOW BLOOD PRESSURE, WEAKNESS, PT WAS SEEN IN [facility] ER LAST WEEK FOR THIS . ANY NEW EXTREMITY NUMBNESS OR WEAKNESS? NO . HEAD INJURY NO . DEMENTIA NO . CEREBRAL PALSY NO . MULTIPLE SCLEROSIS NO . DIZZINESS NO . HEADACHE NO . STROKES NO . VERTIGO NO . CARDIOLOGY: DO YOU HAVE A PACEMAKER OR DEFIBRILLATOR? NO . ANGINA NO . HEART ATTACK NO . HEART SURGERY NO . CONGESTIVE HEART FAILURE/FLUID OVERLOAD NO . CHEST PAIN NO . HIGH BLOOD PRESSURE NO . IRREGULAR HEART BEAT NO . RESPIRATORY: HAVE YOU BEEN SICK IN THE PAST WEEK? NO . FEVER NO . FLU LIKE SYMPTOMS? NO . CPAP NO . BYPAP NO . ASTHMA NO . EMPHYSEMA NO . CHRONIC LUNG DISEASES NO . SHORTNESS OF BREATH ON EXERTION NO . DO YOU USE ANY TYPE OF TOBACCO (SMOKE, SMOKELESS, CHEW)? NO . COUGH NO . SNORING NO . INTEGUMENTARY: DO YOU HAVE ANY RASHES OR OPEN SORES? NO . ALLERGIC/IMMUNO: ARE YOU ALLERGIC TO SHELLFISH OR IV DYE? NO . ANY NEW ALLERGIES? NO . PSYCHIATRIC: DO YOU HAVE THOUGHTS OF HURTING YOURSELF OR SOMEONE ELSE? NO . ARE YOU ABUSED, NEGLECTED, OR IN AN UNSAFE ENVIRONMENT? NO . ENDOCRINOLOGY: ARE YOU DIABETIC? YES . THYROID DISORDER NO . OTHER: DO YOU NEED ANY PRESCRIPTIONS? NO . IF YES, PLEASE LIST: ____ . ANY NEW PROBLEMS WITH YOUR MEDICATIONS? NO . WHEN DID YOU LAST EAT? ____ . WHEN DID YOU LAST DRINK? ____ . WHAT DID YOU LAST DRINK? ____ . NAME OF PERSON DRIVING YOU HOME? ____ . DO YOU HAVE ANY OTHER QUESTIONS OR CONCERNS NO . VITAL SIGNS WT 236.4 LBS, HT 63.5 IN, BMI 41.22 INDEX, BP 128/60 MM HG, HR 64 /MIN, RR 16 /MIN, TEMP 97.3 F, OXYGEN SAT % 97%, NA INITIALS SC 09:44, REVIEWED BY: MERRITT. EXAMINATION GENERAL EXAMINATION: GENERAL APPEARANCE:ALERT/ORIENTED. PSYCHAFFECT NORMAL. NECK:TRACHEA MIDLINE. NO CERVICAL OR SUPRACLAVICULAR LYMPHADENOPATHY NOTED. LUNGS:LUNG ELIZALDE ARE CLEAR TO AUSCULTATION BILATERALLY. GOOD MOVEMENT OF AIR. HEART:S1, S2 IN A REGULAR RATE AND RHYTHM. NO SIGNIFICANT MURMURS, RUBS OR GALLOPS NOTED. ABDOMEN:DISTENDED, .SPECIFIC TENDERNESS UNDER RIGHT BREAST EXTENDING MID CLAVICULAR.. ASSESSMENTS HICKS (NONALCOHOLIC STEATOHEPATITIS) - K75.81 (PRIMARY) OTHER CHRONIC PAIN - G89.29 RIGHT UPPER QUADRANT PAIN - R10.11 TREATMENT HICKS (NONALCOHOLIC STEATOHEPATITIS) START CYMBALTA CAPSULE DELAYED RELEASE PARTICLES, 20 MG, 1 CAPSULE, ORALLY, DAILY, 30 DAY(S), 30 CAPSULE, REFILLS 1 CONTINUE OXYCODONE HCL TABLET, 5 MG, 1 TABLET, ORALLY, EVERY 6 HRS NEEDED FOR SEVERE PAIN (MDD:2) PREVENTIVE MEDICINE GAVE INFO ON CYMBALTA / DISCUSSED NARCOTIC CONTRACT AND ANSWERED QUESTIONS NEEDED. PROCEDURE CODES FA211 ESTABILISHED PATIENT [facility] CHARGE DISPOSITION & COMMUNICATION FOLLOW UP 4 WEEKS ELECTRONICALLY SIGNED BY DOM RYAN ON 06/05/2017 AT 06:43 PM EDT DISCLAIMER : THIS IS A VISIT SUMMARY EXTRACTED FROM THE [employer] CHART. IT IS NOT A COPY OF THE [facility] PROGRESS NOTE. MTDD
== END ==
LOC: M PAIN 09:15
PROVIDERS: ATTEND Nurse Practitioner Family
DX: G89.29 Other chronic pain (principal); R10.11 Right upper quadrant pain; K75.81 Nonalcoholic steatohepatitis (NASH); E78.00 Pure hypercholesterolemia, unspecified; I12.9 Hypertensive chronic kidney disease with stage 1 through stage 4 chronic kidney disease, or unspecified chronic kidney disease; E11.9 Type 2 diabetes mellitus without complications; F32.9 Major depressive disorder, single episode, unspecified; K21.9 Gastro-esophageal reflux disease without esophagitis; G47.33 Obstructive sleep apnea (adult) (pediatric); E55.9 Vitamin D deficiency, unspecified; Z88.8 Allergy status to other drugs, medicaments and biological substances; L23.1 Allergic contact dermatitis due to adhesives; Z88.6 Allergy status to analgesic agent; Z79.4 Long term (current) use of insulin; Z79.891 Long term (current) use of opiate analgesic; Z79.899 Other long term (current) drug therapy

== ENCOUNTER → 2017-06-01 | Outpatient (REF) | payer OTHER | LOC: M SFHCLERA 10:59 | PROVIDERS: ATTEND Family Medicine | DX: E11.9 Type 2 diabetes mellitus without complications (principal) ==

== ENCOUNTER → 2017-06-13 | Outpatient (CLI) | payer OTHER | LOC: M PAIN 09:00 | PROVIDERS: ATTEND Nurse Practitioner Family | DX: K75.81 Nonalcoholic steatohepatitis (NASH) (principal); G89.29 Other chronic pain; R10.11 Right upper quadrant pain; K72.90 Hepatic failure, unspecified without coma; I10 Essential (primary) hypertension; E11.9 Type 2 diabetes mellitus without complications; R42 Dizziness and giddiness; Z79.2 Long term (current) use of antibiotics; Z79.4 Long term (current) use of insulin; Z79.891 Long term (current) use of opiate analgesic; Z79.899 Other long term (current) drug therapy; Z88.8 Allergy status to other drugs, medicaments and biological substances; Z88.6 Allergy status to analgesic agent; Z91.048 Other nonmedicinal substance allergy status ==

== ENCOUNTER 2017-08-05 10:04 | Inpatient (IN) | payer OTHER ==
[2017-08-05 11:19] LABS: VENOUS BASE EXCESS 1.4 (-2.0-2.0); VENOUS O2 SATURATION 81.1 % (60.0-80.0); VENOUS PARTIAL PRESSURE CO2 44.9 mmHg (38.0-50.0); VENOUS PARTIAL PRESSURE O2 49.4 mmHg (30.0-50.0); VENOUS STANDARD HCO3 25.4 MEQ/L; VENOUS TOTAL CO2 28.1 MEQ/L (24.0-28.0)
[2017-08-05 11:20] LABS: BASO % 0.6 % (0.0-1.0); EOS # 0.1 10^3/uL (0.0-0.50); EOS % 1.5 % (0.0-3.0); IMMATURE GRANULOCYTE % 0.2 % (0-0); MEAN CORPUSCULAR HEMOGLOBIN 32.2 pg (27.0-33.0); MEAN CORPUSCULAR HGB CONC 34.5 g/dl (32.0-36.5); MEAN CORPUSCULAR VOLUME 93.3 fl (80.0-96.0); MONO # 0.4 10^3/uL (0.0-0.8); MONO % 6.5 % (0.0-5.0); NEUTROPHILS % 73.2 % (36.0-66.0); PLATELET COUNT, AUTOMATED 103 10^3/uL (150-450); RED CELL DISTRIBUTION WIDTH 14.2 % (11.5-14.5); WHITE BLOOD COUNT 5.4 10^3/uL (4.0-10.0)
[2017-08-05 11:43] LABS: ALBUMIN 3.3 GM/DL (3.2-5.2); ALBUMIN/GLOBULIN RATIO 0.83 (1.00-1.93); ALKALINE PHOSPHATASE 227 U/L (45-117); ALT/SGPT 46 U/L (12-78); ANION GAP 10 MEQ/L (8-16); AST/SGOT 32 U/L (7-37); BILIRUBIN,DIRECT 0.2 MG/DL (0.0-0.2); BILIRUBIN,TOTAL 0.4 MG/DL (0.2-1.0); BLOOD UREA NITROGEN 30 MG/DL (7-18); CALCIUM LEVEL 9.1 MG/DL (8.8-10.2); CARBON DIOXIDE LEVEL 27 MEQ/L (21-32); CHLORIDE LEVEL 94 MEQ/L (98-107); CREATININE FOR GFR 1.59 MG/DL (0.55-1.02); MAGNESIUM LEVEL 2.6 MG/DL (1.8-2.4); PHOSPHORUS LEVEL 2.5 MG/DL (2.5-4.9); POTASSIUM SERUM 4.1 MEQ/L (3.5-5.1); SODIUM LEVEL 131 MEQ/L (136-145); TOTAL PROTEIN 7.3 GM/DL (6.4-8.2)
[2017-08-05 11:48] LABS: FREE T4 1.28 NG/DL (0.76-1.46)
[2017-08-05 11:51] LABS: GLUCOSE, FASTING 521 MG/DL (80-110)
[2017-08-05] MEDS: HumuLIN R (REGULAR) INSULIN (NovoLIN R) **100U/ML** PER UNIT IV (12:12)
[2017-08-05] MEDS ORDERED: ONDANSETRON 4MG/2ML VIAL (J2405) IV (12:45)
[2017-08-05] MEDS ORDERED: BISACODYL 5 MG TAB PO (12:45)
[2017-08-05] MEDS ORDERED: GLUCAGON FOR INJ 1 MG VIAL (J1610) SC (13:45)
[2017-08-05] MEDS ORDERED: GLUCOSE 4 GM CHEW TABLET PO (13:45)
[2017-08-05] MEDS ORDERED: DEXTROSE 50% 50 ML SYRINGE IV (13:45)
[2017-08-05] MEDS: NS 1,000 ML IV (15:40)
[2017-08-05] MEDS: NADOLOL 20MG TABLET PO (15:42)
[2017-08-05] MEDS: LEVEMIR (INSULIN DETEMIR) 1 UNITS/0.01ML SC ×2 (15:43→21:14)
[2017-08-05] MEDS: ASPIRIN 81 MG ENTERIC TAB PO (15:43)
[2017-08-05] MEDS: PANTOPRAZOLE 40MG TAB (PROTONIX) PO (15:43)
[2017-08-05] MEDS: HumaLOG INSULIN (NovoLOG) PER UNIT SC ×2 (17:27→21:13)
[2017-08-05] MEDS: SPIRONOLACTONE 50 MG TAB PO (17:27)
[2017-08-05] MEDS: FERROUS SULFATE 325MG TAB PO (21:12)
[2017-08-05] MEDS: SENOKOT S TAB PO (21:13)
[2017-08-05] MEDS: diphenhydrAMINE 25 MG CAP PO (23:39)
[2017-08-06 05:53] LABS: BASO % 0.8 % (0.0-1.0); EOS # 0.1 10^3/uL (0.0-0.50); EOS % 2.8 % (0.0-3.0); LYMPH # 1.4 10^3/uL (1.5-4.5); MEAN CORPUSCULAR HEMOGLOBIN 32.1 pg (27.0-33.0); MEAN CORPUSCULAR VOLUME 94.5 fl (80.0-96.0); MONO # 0.3 10^3/uL (0.0-0.8); MONO % 8.8 % (0.0-5.0); NEUTROPHILS % 52.6 % (36.0-66.0); RED CELL DISTRIBUTION WIDTH 14.3 % (11.5-14.5); WHITE BLOOD COUNT 3.9 10^3/uL (4.0-10.0)
[2017-08-06 06:05] LABS: ANION GAP 6 MEQ/L (8-16); BLOOD UREA NITROGEN 26 MG/DL (7-18); CALCIUM LEVEL 8.6 MG/DL (8.8-10.2); CARBON DIOXIDE LEVEL 28 MEQ/L (21-32); CHLORIDE LEVEL 107 MEQ/L (98-107); CREATININE FOR GFR 1.11 MG/DL (0.55-1.02); GLUCOSE, FASTING 186 MG/DL (80-110); POTASSIUM SERUM 4.1 MEQ/L (3.5-5.1); SODIUM LEVEL 141 MEQ/L (136-145)
[2017-08-06 06:24] LABS: IMMATURE PLATELET FRACTION % 7.2 % (0.0-9.6); PLATELET COUNT, AUTOMATED 73 10^3/uL (150-450)
[2017-08-06] MEDS: HumaLOG INSULIN (NovoLOG) PER UNIT SC ×4 (07:33→17:30)
[2017-08-06] MEDS: SPIRONOLACTONE 50 MG TAB PO ×2 (08:32→16:24)
[2017-08-06] MEDS: ASPIRIN 81 MG ENTERIC TAB PO (08:32)
[2017-08-06] MEDS: SENOKOT S TAB PO ×2 (08:32→21:00)
[2017-08-06] MEDS: FERROUS SULFATE 325MG TAB PO ×2 (08:32→21:24)
[2017-08-06] MEDS: PANTOPRAZOLE 40MG TAB (PROTONIX) PO (08:32)
[2017-08-06] MEDS: FUROSEMIDE 20 MG TAB PO ×2 (08:33→16:24)
[2017-08-06] MEDS: INFLUENZA QUADRIVALENT PF VACCINE 0.5ML SYRINGE (90686) IM (08:34)
[2017-08-06] MEDS: LEVEMIR (INSULIN DETEMIR) 1 UNITS/0.01ML SC (08:34)
[2017-08-06] MEDS: ENOXAPARIN 40 MG/0.4 ML SYRINGE (J1650) SC (09:00)
[2017-08-06] MEDS: NADOLOL 20MG TABLET PO (11:45)
[2017-08-06] MEDS: CEFTRIAXONE SOD 1 GM in APPROPRIATE DILUENT 1 EA IV (12:12)
[2017-08-06 18:34] LABS: ANION GAP 8 MEQ/L (8-16); BLOOD UREA NITROGEN 28 MG/DL (7-18); CALCIUM LEVEL 8.5 MG/DL (8.8-10.2); CARBON DIOXIDE LEVEL 25 MEQ/L (21-32); CHLORIDE LEVEL 102 MEQ/L (98-107); CREATININE FOR GFR 1.57 MG/DL (0.55-1.02); GLOMERULAR FILTRATION RATE 35.5 (>45); POTASSIUM SERUM 4.8 MEQ/L (3.5-5.1); SODIUM LEVEL 135 MEQ/L (136-145)
[2017-08-06 18:52] LABS: GLUCOSE, FASTING 505 MG/DL (80-110)
[2017-08-06] MEDS: NS 500 ML IV ×2 (19:39→23:15)
[2017-08-06 19:40] LABS: BASO % 0.6 % (0.0-1.0); EOS # 0.1 10^3/uL (0.0-0.50); EOS % 1.2 % (0.0-3.0); IMMATURE GRANULOCYTE % 0.2 % (0-0); LYMPH # 1.1 10^3/uL (1.5-4.5); LYMPH % 21.2 % (24.0-44.0); MEAN CORPUSCULAR HEMOGLOBIN 32.8 pg (27.0-33.0); MEAN CORPUSCULAR HGB CONC 34.5 g/dl (32.0-36.5); MONO # 0.5 10^3/uL (0.0-0.8); MONO % 9.6 % (0.0-5.0); NEUTROPHILS # 3.4 10^3/uL (1.8-7.7); NEUTROPHILS % 67.2 % (36.0-66.0); PLATELET COUNT, AUTOMATED 113 10^3/uL (150-450); RED CELL DISTRIBUTION WIDTH 14.6 % (11.5-14.5)
[2017-08-06 19:56] LABS: KETONE, URINE AUTO RFX NEGATIVE (NEGATIVE); NITRITE, URINE AUTO RFX NEGATIVE (NEGATIVE); RBC, URINE AUTO RFX 1 /HPF (0-3); SPECIFIC GRAVITY UR AUTO RFX 1.017 (1.002-1.035); SQUAM EPITHELIAL CELL UR AURFX 1 /HPF (0-6); WBC, URINE AUTO RFX 8 /HPF (0-3)
[2017-08-06 19:57] LABS: LEUKOCYTE ESTERASE UR AUTO RFX TRACE (NEGATIVE)
[2017-08-06 20:08] LABS: OSMOLALITY SERUM 308 MOSM/KG (280-301)
[2017-08-06 20:12] LABS: LACTIC ACID SEPSIS PROTOCOL 3.3 MMOL/L (0.4-2.0)
[2017-08-06 20:25] LABS: ALBUMIN 2.9 GM/DL (3.2-5.2); ALBUMIN/GLOBULIN RATIO 0.76 (1.00-1.93); ALKALINE PHOSPHATASE 209 U/L (45-117); ALT/SGPT 51 U/L (12-78); AST/SGOT 46 U/L (7-37); BILIRUBIN,DIRECT 0.1 MG/DL (0.0-0.2); BILIRUBIN,TOTAL 0.3 MG/DL (0.2-1.0); TOTAL PROTEIN 6.7 GM/DL (6.4-8.2)
[2017-08-06] MEDS: PIPERACILLIN/TAZOBACTAM SOD 3.375 GM in APPROPRIATE DILUENT 1 EA IV (20:55)
[2017-08-06] MEDS: NS 1,000 ML IV (20:56)
[2017-08-06] MEDS: INSULIN HUMAN REGULAR 100 UNITS in NS 99 ML IV (20:56)
[2017-08-06] MEDS: INSULIN IV RATE CHANGE DOCUMENTATION ML/HR XX (23:07)
[2017-08-07] MEDS: INSULIN IV RATE CHANGE DOCUMENTATION ML/HR XX ×4 (01:08→06:17)
[2017-08-07] MEDS: diphenhydrAMINE 25 MG CAP PO (01:15)
[2017-08-07] MEDS: PIPERACILLIN/TAZOBACTAM SOD 3.375 GM in APPROPRIATE DILUENT 1 EA IV ×4 (02:12→19:26)
[2017-08-07] MEDS: VANCOMYCIN HCL 1,000 MG, VIAL MATE ADAPTER 1 EACH in D5W 250 ML IV ×3 (04:30→17:20)
[2017-08-07 04:48] LABS: BASO # 0.1 10^3/uL (0.0-0.2); BASO % 1.1 % (0.0-1.0); EOS # 0.1 10^3/uL (0.0-0.50); EOS % 2.2 % (0.0-3.0); IMMATURE GRANULOCYTE % 0.4 % (0-0); LYMPH # 1.6 10^3/uL (1.5-4.5); LYMPH % 28.1 % (24.0-44.0); MEAN CORPUSCULAR HEMOGLOBIN 31.8 pg (27.0-33.0); MEAN CORPUSCULAR HGB CONC 33.3 g/dl (32.0-36.5); MEAN CORPUSCULAR VOLUME 95.3 fl (80.0-96.0); MONO # 0.5 10^3/uL (0.0-0.8); MONO % 9.3 % (0.0-5.0); NEUTROPHILS # 3.3 10^3/uL (1.8-7.7); NEUTROPHILS % 58.9 % (36.0-66.0); PLATELET COUNT, AUTOMATED 103 10^3/uL (150-450); RED CELL DISTRIBUTION WIDTH 14.6 % (11.5-14.5); WHITE BLOOD COUNT 5.5 10^3/uL (4.0-10.0)
[2017-08-07 05:15] LABS: ANION GAP 11 MEQ/L (8-16); BLOOD UREA NITROGEN 23 MG/DL (7-18); CALCIUM LEVEL 8.5 MG/DL (8.8-10.2); CARBON DIOXIDE LEVEL 24 MEQ/L (21-32); CHLORIDE LEVEL 106 MEQ/L (98-107); CREATININE FOR GFR 1.33 MG/DL (0.55-1.02); GLUCOSE, FASTING 144 MG/DL (80-110); POTASSIUM SERUM 3.9 MEQ/L (3.5-5.1); SODIUM LEVEL 141 MEQ/L (136-145)
[2017-08-07 05:18] LABS: ALBUMIN 3.1 GM/DL (3.2-5.2); ALBUMIN/GLOBULIN RATIO 0.79 (1.00-1.93); ALKALINE PHOSPHATASE 201 U/L (45-117); ALT/SGPT 51 U/L (12-78); AST/SGOT 37 U/L (7-37); BILIRUBIN,DIRECT 0.2 MG/DL (0.0-0.2); BILIRUBIN,TOTAL 0.6 MG/DL (0.2-1.0); MAGNESIUM LEVEL 2.1 MG/DL (1.8-2.4)
[2017-08-07 05:31] LABS: ESTIMATED AVERAGE GLUCOSE 232 MG/DL (60-110)
[2017-08-07 05:36] LABS: LACTIC ACID SEPSIS PROTOCOL 4.6 MMOL/L (0.4-2.0)
[2017-08-07] MEDS: NS 1,000 ML IV ×3 (05:45→19:26)
[2017-08-07] MEDS: SENOKOT S TAB PO ×2 (08:32→21:00)
[2017-08-07] MEDS: FERROUS SULFATE 325MG TAB PO ×2 (08:32→21:04)
[2017-08-07 08:33] LABS: MAGNESIUM LEVEL 2.5 MG/DL (1.8-2.4)
[2017-08-07] MEDS: PANTOPRAZOLE 40MG TAB (PROTONIX) PO (08:33)
[2017-08-07] MEDS: ASPIRIN 81 MG ENTERIC TAB PO (08:33)
[2017-08-07] MEDS: ENOXAPARIN 40 MG/0.4 ML SYRINGE (J1650) SC (08:34)
[2017-08-07] MEDS: NADOLOL 20MG TABLET PO (09:00)
[2017-08-07 09:05] LABS: FERRITIN 50 NG/ML (8-252)
[2017-08-07] MEDS ORDERED: GLUCAGON FOR INJ 1 MG VIAL (J1610) SC (09:30)
[2017-08-07] MEDS ORDERED: DEXTROSE 50% 50 ML SYRINGE IV (09:30)
[2017-08-07] MEDS ORDERED: GLUCOSE 4 GM CHEW TABLET PO (09:30)
[2017-08-07] MEDS: LEVEMIR (INSULIN DETEMIR) 1 UNITS/0.01ML SC ×2 (09:36→21:05)
[2017-08-07] MEDS: HumaLOG INSULIN (NovoLOG) PER UNIT SC ×3 (12:53→21:05)
[2017-08-07] MEDS: LACTULOSE 20 GM/30 ML SYRUP UD PO ×3 (14:03→17:20)
[2017-08-08] MEDS: PIPERACILLIN/TAZOBACTAM SOD 3.375 GM in APPROPRIATE DILUENT 1 EA IV ×2 (01:10→08:16)
[2017-08-08] MEDS: VANCOMYCIN HCL 1,000 MG, VIAL MATE ADAPTER 1 EACH in D5W 250 ML IV (05:11)
[2017-08-08] MEDS: NS 1,000 ML IV (05:12)
[2017-08-08 05:16] LABS: EOS # 0.1 10^3/uL (0.0-0.50); EOS % 2.6 % (0.0-3.0); IMMATURE GRANULOCYTE % 0.3 % (0-0); LYMPH # 1.1 10^3/uL (1.5-4.5); LYMPH % 34.3 % (24.0-44.0); MEAN CORPUSCULAR HEMOGLOBIN 32.3 pg (27.0-33.0); MEAN CORPUSCULAR HGB CONC 32.2 g/dl (32.0-36.5); MEAN CORPUSCULAR VOLUME 100.3 fl (80.0-96.0); MONO # 0.4 10^3/uL (0.0-0.8); MONO % 11.4 % (0.0-5.0); NEUTROPHILS # 1.5 10^3/uL (1.8-7.7); NEUTROPHILS % 50.4 % (36.0-66.0); RED CELL DISTRIBUTION WIDTH 15.1 % (11.5-14.5); WHITE BLOOD COUNT 3.1 10^3/uL (4.0-10.0)
[2017-08-08 05:34] LABS: ANION GAP 9 MEQ/L (8-16); BLOOD UREA NITROGEN 16 MG/DL (7-18); CALCIUM LEVEL 8.1 MG/DL (8.8-10.2); CARBON DIOXIDE LEVEL 23 MEQ/L (21-32); CHLORIDE LEVEL 113 MEQ/L (98-107); CREATININE FOR GFR 1.18 MG/DL (0.55-1.02); GLOMERULAR FILTRATION RATE 49.4 (>45); GLUCOSE, FASTING 207 MG/DL (80-110); POTASSIUM SERUM 3.9 MEQ/L (3.5-5.1); SODIUM LEVEL 145 MEQ/L (136-145)
[2017-08-08 05:40] LABS: PLATELET COUNT, AUTOMATED 69 10^3/uL (150-450)
[2017-08-08 05:41] LABS: IMMATURE PLATELET FRACTION % 6.8 % (0.0-9.6)
[2017-08-08 08:01] LABS: LACTIC ACID SEPSIS PROTOCOL 1.4 MMOL/L (0.4-2.0)
[2017-08-08] MEDS: NADOLOL 20MG TABLET PO (08:17)
[2017-08-08] MEDS: HumaLOG INSULIN (NovoLOG) PER UNIT SC ×4 (08:17→21:00)
[2017-08-08] MEDS: FERROUS SULFATE 325MG TAB PO ×2 (08:17→19:40)
[2017-08-08] MEDS: PANTOPRAZOLE 40MG TAB (PROTONIX) PO (08:17)
[2017-08-08] MEDS: ASPIRIN 81 MG ENTERIC TAB PO (08:17)
[2017-08-08] MEDS: LEVEMIR (INSULIN DETEMIR) 1 UNITS/0.01ML SC ×2 (08:18→19:41)
[2017-08-08] MEDS: SENOKOT S TAB PO ×2 (08:26→19:40)
[2017-08-08] MEDS: diphenhydrAMINE 25 MG CAP PO (19:40)
[2017-08-08 23:21] LABS: EOS # 0.1 10^3/uL (0.0-0.50); EOS % 3.1 % (0.0-3.0); IMMATURE GRANULOCYTE % 0.3 % (0-0); LYMPH # 0.9 10^3/uL (1.5-4.5); LYMPH % 29.4 % (24.0-44.0); MEAN CORPUSCULAR HEMOGLOBIN 32.1 pg (27.0-33.0); MEAN CORPUSCULAR HGB CONC 32.4 g/dl (32.0-36.5); MEAN CORPUSCULAR VOLUME 98.8 fl (80.0-96.0); MONO # 0.3 10^3/uL (0.0-0.8); MONO % 11.3 % (0.0-5.0); NEUTROPHILS # 1.6 10^3/uL (1.8-7.7); NEUTROPHILS % 54.9 % (36.0-66.0); RED CELL DISTRIBUTION WIDTH 15.2 % (11.5-14.5); WHITE BLOOD COUNT 2.9 10^3/uL (4.0-10.0)
[2017-08-08 23:23] LABS: PLATELET COUNT, AUTOMATED 77 10^3/uL (150-450)
[2017-08-08 23:51] LABS: ALBUMIN 2.7 GM/DL (3.2-5.2); ALBUMIN/GLOBULIN RATIO 0.84 (1.00-1.93); ALKALINE PHOSPHATASE 182 U/L (45-117); ALT/SGPT 50 U/L (12-78); ANION GAP 8 MEQ/L (8-16); AST/SGOT 34 U/L (7-37); BILIRUBIN,TOTAL 0.4 MG/DL (0.2-1.0); BLOOD UREA NITROGEN 15 MG/DL (7-18); CARBON DIOXIDE LEVEL 22 MEQ/L (21-32); CHLORIDE LEVEL 114 MEQ/L (98-107); CREATININE FOR GFR 1.18 MG/DL (0.55-1.02); GLOMERULAR FILTRATION RATE 49.4 (>45); GLUCOSE, FASTING 255 MG/DL (80-110); POTASSIUM SERUM 4.2 MEQ/L (3.5-5.1); SODIUM LEVEL 144 MEQ/L (136-145); TOTAL PROTEIN 5.9 GM/DL (6.4-8.2)
[2017-08-09 06:59] LABS: BASO % 0.8 % (0.0-1.0); EOS # 0.1 10^3/uL (0.0-0.50); EOS % 2.7 % (0.0-3.0); IMMATURE GRANULOCYTE % 0.3 % (0-0); LYMPH % 27.8 % (24.0-44.0); MEAN CORPUSCULAR HGB CONC 32.6 g/dl (32.0-36.5); MEAN CORPUSCULAR VOLUME 98.2 fl (80.0-96.0); MONO # 0.3 10^3/uL (0.0-0.8); MONO % 8.3 % (0.0-5.0); NEUTROPHILS # 2.3 10^3/uL (1.8-7.7); NEUTROPHILS % 60.1 % (36.0-66.0); RED CELL DISTRIBUTION WIDTH 15.1 % (11.5-14.5); WHITE BLOOD COUNT 3.7 10^3/uL (4.0-10.0)
[2017-08-09 07:03] LABS: PLATELET COUNT, AUTOMATED 72 10^3/uL (150-450)
[2017-08-09 07:04] LABS: ADD MANUAL DIFFER NO; DIFF SLIDE NUMBER 33
[2017-08-09 07:14] LABS: ANION GAP 8 MEQ/L (8-16); BLOOD UREA NITROGEN 15 MG/DL (7-18); CALCIUM LEVEL 8.9 MG/DL (8.8-10.2); CARBON DIOXIDE LEVEL 21 MEQ/L (21-32); CHLORIDE LEVEL 111 MEQ/L (98-107); CREATININE FOR GFR 0.95 MG/DL (0.55-1.02); GLOMERULAR FILTRATION RATE > 60.0 (>45); GLUCOSE, FASTING 211 MG/DL (80-110); POTASSIUM SERUM 3.9 MEQ/L (3.5-5.1); SODIUM LEVEL 140 MEQ/L (136-145)
[2017-08-09] MEDS: SENOKOT S TAB PO ×2 (09:34→21:00)
[2017-08-09] MEDS: LEVEMIR (INSULIN DETEMIR) 1 UNITS/0.01ML SC ×2 (09:34→21:26)
[2017-08-09] MEDS: NADOLOL 20MG TABLET PO (09:34)
[2017-08-09] MEDS: PANTOPRAZOLE 40MG TAB (PROTONIX) PO (09:34)
[2017-08-09] MEDS: HumaLOG INSULIN (NovoLOG) PER UNIT SC ×4 (09:35→21:00)
[2017-08-09] MEDS: ASPIRIN 81 MG ENTERIC TAB PO (09:35)
[2017-08-09] MEDS: FERROUS SULFATE 325MG TAB PO ×2 (09:35→21:25)
[2017-08-09] MEDS: ALPRAZolam 0.5 MG TAB PO (10:59)
[2017-08-09] MEDS: MECLIZINE 25 MG TABLET PO ×2 (10:59→21:33)
[2017-08-09] MEDS: diphenhydrAMINE 25 MG CAP PO (21:25)
[2017-08-10 06:50] LABS: BASO % 0.7 % (0.0-1.0); EOS # 0.1 10^3/uL (0.0-0.50); EOS % 3.3 % (0.0-3.0); LYMPH # 0.8 10^3/uL (1.5-4.5); LYMPH % 30.8 % (24.0-44.0); MEAN CORPUSCULAR HEMOGLOBIN 32.6 pg (27.0-33.0); MEAN CORPUSCULAR HGB CONC 31.9 g/dl (32.0-36.5); MEAN CORPUSCULAR VOLUME 102.4 fl (80.0-96.0); MONO # 0.3 10^3/uL (0.0-0.8); MONO % 11.4 % (0.0-5.0); NEUTROPHILS # 1.5 10^3/uL (1.8-7.7); NEUTROPHILS % 53.8 % (36.0-66.0); RED CELL DISTRIBUTION WIDTH 15.1 % (11.5-14.5); WHITE BLOOD COUNT 2.7 10^3/uL (4.0-10.0)
[2017-08-10 06:56] LABS: PLATELET COUNT, AUTOMATED 60 10^3/uL (150-450)
[2017-08-10 06:57] LABS: IMMATURE PLATELET FRACTION % 5.4 % (0.0-9.6); PLATELET F 59
[2017-08-10 07:09] LABS: ANION GAP 8 MEQ/L (8-16); BLOOD UREA NITROGEN 12 MG/DL (7-18); CALCIUM LEVEL 7.9 MG/DL (8.8-10.2); CARBON DIOXIDE LEVEL 21 MEQ/L (21-32); CHLORIDE LEVEL 113 MEQ/L (98-107); CREATININE FOR GFR 0.89 MG/DL (0.55-1.02); GLOMERULAR FILTRATION RATE > 60.0 (>45); GLUCOSE, FASTING 188 MG/DL (80-110); POTASSIUM SERUM 3.9 MEQ/L (3.5-5.1); SODIUM LEVEL 142 MEQ/L (136-145)
[2017-08-10] MEDS: ASPIRIN 81 MG ENTERIC TAB PO (08:30)
[2017-08-10] MEDS: NADOLOL 20MG TABLET PO (08:31)
[2017-08-10] MEDS: PANTOPRAZOLE 40MG TAB (PROTONIX) PO (08:31)
[2017-08-10] MEDS: FERROUS SULFATE 325MG TAB PO ×2 (08:31→20:09)
[2017-08-10] MEDS: SENOKOT S TAB PO ×2 (08:31→20:10)
[2017-08-10] MEDS: LEVEMIR (INSULIN DETEMIR) 1 UNITS/0.01ML SC ×2 (08:32→20:10)
[2017-08-10] MEDS: HumaLOG INSULIN (NovoLOG) PER UNIT SC ×4 (08:32→20:10)
[2017-08-10] MEDS: ESCITALOPRAM OXALATE 10 MG TAB (LEXAPRO) PO (18:40)
[2017-08-10] MEDS: diphenhydrAMINE 25 MG CAP PO (20:13)
[2017-08-10] MEDS: MECLIZINE 25 MG TABLET PO (20:13)
[2017-08-11 07:12] LABS: BASO % 0.7 % (0.0-1.0); EOS # 0.1 10^3/uL (0.0-0.50); EOS % 3.1 % (0.0-3.0); IMMATURE GRANULOCYTE % 0.3 % (0-0); LYMPH # 0.8 10^3/uL (1.5-4.5); LYMPH % 26.4 % (24.0-44.0); MEAN CORPUSCULAR HEMOGLOBIN 32.3 pg (27.0-33.0); MEAN CORPUSCULAR HGB CONC 32.3 g/dl (32.0-36.5); MONO # 0.3 10^3/uL (0.0-0.8); MONO % 8.9 % (0.0-5.0); NEUTROPHILS # 1.8 10^3/uL (1.8-7.7); NEUTROPHILS % 60.6 % (36.0-66.0); WHITE BLOOD COUNT 2.9 10^3/uL (4.0-10.0)
[2017-08-11 07:25] LABS: ANION GAP 6 MEQ/L (8-16); BLOOD UREA NITROGEN 15 MG/DL (7-18); CALCIUM LEVEL 8.1 MG/DL (8.8-10.2); CARBON DIOXIDE LEVEL 23 MEQ/L (21-32); CHLORIDE LEVEL 114 MEQ/L (98-107); CREATININE FOR GFR 0.78 MG/DL (0.55-1.02); GLOMERULAR FILTRATION RATE > 60.0 (>45); GLUCOSE, FASTING 148 MG/DL (80-110); PLATELET COUNT, AUTOMATED 60 10^3/uL (150-450); POTASSIUM SERUM 4.5 MEQ/L (3.5-5.1); SODIUM LEVEL 143 MEQ/L (136-145)
[2017-08-11] MEDS: HumaLOG INSULIN (NovoLOG) PER UNIT SC ×2 (07:30→12:54)
[2017-08-11] MEDS: ESCITALOPRAM OXALATE 10 MG TAB (LEXAPRO) PO (08:21)
[2017-08-11] MEDS: FERROUS SULFATE 325MG TAB PO (08:21)
[2017-08-11] MEDS: NADOLOL 20MG TABLET PO (08:21)
[2017-08-11] MEDS: ASPIRIN 81 MG ENTERIC TAB PO (08:21)
[2017-08-11] MEDS: PANTOPRAZOLE 40MG TAB (PROTONIX) PO (08:21)
[2017-08-11] MEDS: LEVEMIR (INSULIN DETEMIR) 1 UNITS/0.01ML SC (08:22)
[2017-08-11] MEDS: SENOKOT S TAB PO (08:22)
== END 2017-08-11 15:45 | disposition home or self-care (01) | DRG 638 ==
LOC: M ICU 08-06 20:37 → M MS5PR 08-08 09:37 → M ED 10:04 → M ED INP 12:39 → M MSPAV 14:11
DX: E11.65 Type 2 diabetes mellitus with hyperglycemia (principal); N17.9 Acute kidney failure, unspecified; D61.818 Other pancytopenia; R18.8 Other ascites; E72.20 Disorder of urea cycle metabolism, unspecified; I85.10 Secondary esophageal varices without bleeding; G47.00 Insomnia, unspecified; D69.6 Thrombocytopenia, unspecified; G40.909 Epilepsy, unspecified, not intractable, without status epilepticus; D50.9 Iron deficiency anemia, unspecified; K80.20 Calculus of gallbladder without cholecystitis without obstruction; R25.1 Tremor, unspecified; K74.60 Unspecified cirrhosis of liver; Z91.19 Patient's noncompliance with other medical treatment and regimen; Z91.11 Patient's noncompliance with dietary regimen; Z79.82 Long term (current) use of aspirin; Z79.899 Other long term (current) drug therapy; Z79.4 Long term (current) use of insulin; I10 Essential (primary) hypertension; E78.5 Hyperlipidemia, unspecified; F32.9 Major depressive disorder, single episode, unspecified; F41.9 Anxiety disorder, unspecified; K21.9 Gastro-esophageal reflux disease without esophagitis; Z88.8 Allergy status to other drugs, medicaments and biological substances; E11.51 Type 2 diabetes mellitus with diabetic peripheral angiopathy without gangrene

== ENCOUNTER → 2017-08-29 | Outpatient (CLI) | payer OTHER | LOC: M PAIN 14:45 | DX: G89.29 Other chronic pain (principal); R10.11 Right upper quadrant pain; K74.69 Other cirrhosis of liver; K75.81 Nonalcoholic steatohepatitis (NASH); E11.9 Type 2 diabetes mellitus without complications; I10 Essential (primary) hypertension; E78.00 Pure hypercholesterolemia, unspecified; R16.1 Splenomegaly, not elsewhere classified; R55 Syncope and collapse; Z79.4 Long term (current) use of insulin; Z79.82 Long term (current) use of aspirin; Z79.891 Long term (current) use of opiate analgesic; Z79.899 Other long term (current) drug therapy; Z88.8 Allergy status to other drugs, medicaments and biological substances; Z91.048 Other nonmedicinal substance allergy status; Z98.890 Other specified postprocedural states | CPT/HCPCS: G0463 ==

== ENCOUNTER 2017-09-11 11:25 | Inpatient (IN) | payer OTHER ==
[2017-09-11] MEDS: ASPIRIN 81 MG ENTERIC TAB PO (09:00)
[2017-09-11 12:05] LABS: BEDSIDE GLUCOSE 439 MG/DL (80-115)
[2017-09-11] MEDS: NS 1,000 ML IV ×3 (12:15→15:27)
[2017-09-11 12:20] LABS: VENOUS BASE EXCESS 0.3 (-2.0-2.0); VENOUS HCO3 24.8 MEQ/L (23.0-27.0); VENOUS O2 SATURATION 92.2 % (60.0-80.0); VENOUS PARTIAL PRESSURE O2 65.6 mmHg (30.0-50.0); VENOUS PH 7.411 UNITS (7.330-7.430); VENOUS STANDARD HCO3 24.6 MEQ/L; VENOUS TOTAL CO2 26.1 MEQ/L (24.0-28.0)
[2017-09-11 12:25] LABS: BASO % 0.8 % (0.0-1.0); EOS # 0.1 10^3/uL (0.0-0.50); EOS % 1.5 % (0.0-3.0); HEMOGLOBIN 12.4 g/dl (12.0-16.0); IMMATURE GRANULOCYTE % 0.2 % (0-0); LYMPH # 0.8 10^3/uL (1.5-4.5); LYMPH % 17.5 % (24.0-44.0); MEAN CORPUSCULAR HEMOGLOBIN 32.7 pg (27.0-33.0); MEAN CORPUSCULAR HGB CONC 33.5 g/dl (32.0-36.5); MEAN CORPUSCULAR VOLUME 97.6 fl (80.0-96.0); MONO # 0.5 10^3/uL (0.0-0.8); MONO % 10.2 % (0.0-5.0); NEUTROPHILS # 3.4 10^3/uL (1.8-7.7); NEUTROPHILS % 69.8 % (36.0-66.0); RED BLOOD COUNT 3.79 10^6/uL (4.00-5.40); RED CELL DISTRIBUTION WIDTH 13.4 % (11.5-14.5); WHITE BLOOD COUNT 4.8 10^3/uL (4.0-10.0)
[2017-09-11 12:28] LABS: PLATELET COUNT, AUTOMATED 72 10^3/uL (150-450); POS COUNT POS FLAG
[2017-09-11 12:29] LABS: IMMATURE PLATELET FRACTION % 8.1 % (0.0-9.6); PLATELET F 5.8
[2017-09-11 12:41] LABS: OSMOLALITY SERUM 305 MOSM/KG (280-301)
[2017-09-11 12:47] LABS: ALBUMIN 2.7 GM/DL (3.2-5.2); ALBUMIN/GLOBULIN RATIO 0.57 (1.00-1.93); ALKALINE PHOSPHATASE 371 U/L (45-117); ALT/SGPT 41 U/L (12-78); ANION GAP 8 MEQ/L (8-16); AST/SGOT 33 U/L (7-37); BILIRUBIN,DIRECT 0.2 MG/DL (0.0-0.2); BILIRUBIN,TOTAL 0.5 MG/DL (0.2-1.0); BLOOD UREA NITROGEN 27 MG/DL (7-18); CALCIUM LEVEL 8.6 MG/DL (8.8-10.2); CARBON DIOXIDE LEVEL 27 MEQ/L (21-32); CHLORIDE LEVEL 98 MEQ/L (98-107); CPK CREATINE PHOSPHOKINASE 31 U/L (26-192); CREATININE FOR GFR 1.21 MG/DL (0.55-1.30); LIPASE 242 U/L (73-393); MAGNESIUM LEVEL 2.2 MG/DL (1.8-2.4); MB/CK RELATIVE INDEX 3.22 (< OR =4); PHOSPHORUS LEVEL 1.3 MG/DL (2.5-4.9); POTASSIUM SERUM 4.5 MEQ/L (3.5-5.1); SODIUM LEVEL 133 MEQ/L (136-145); TOTAL PROTEIN 7.4 GM/DL (6.4-8.2); TROPONIN I < 0.02 NG/ML (< 0.10)
[2017-09-11 12:55] LABS: ACETONE/KETONE 0.95 MG/DL (<2.81)
[2017-09-11 13:05] LABS: LACTIC ACID SEPSIS PROTOCOL 2.3 MMOL/L (0.4-2.0)
[2017-09-11 13:07] LABS: GLUCOSE, FASTING 450 MG/DL (70-100)
[2017-09-11 13:19] LABS: ESTIMATED AVERAGE GLUCOSE 220 MG/DL (60-110); HEMOGLOBIN A1c 9.3 %
[2017-09-11] MEDS: SODIUM PHOSPHATE INJ 30 MMOL in D5W 500 ML IV (13:30)
[2017-09-11 13:44] LABS: BEDSIDE GLUCOSE 372 MG/DL (80-115)
[2017-09-11] MEDS ORDERED: ISOVUE-370 76% 100ML VIAL (Q9967) As Ordered (14:08)
[2017-09-11 14:48] LABS: KETONE, URINE AUTO RFX NEGATIVE (NEGATIVE); LEUKOCYTE ESTERASE UR AUTO RFX TRACE (NEGATIVE); NITRITE, URINE AUTO RFX NEGATIVE (NEGATIVE); RBC, URINE AUTO RFX 6 /HPF (0-3); SPECIFIC GRAVITY UR AUTO RFX 1.007 (1.002-1.035); SQUAM EPITHELIAL CELL UR AURFX 1 /HPF (0-6); WBC, URINE AUTO RFX 2 /HPF (0-3)
[2017-09-11 15:23] LABS: INR 1.12; PROTHROMBIN TIME 14.6 SECONDS (12.4-14.5)
[2017-09-11] MEDS ORDERED: DEXTROSE 50% 50 ML SYRINGE IV (15:30)
[2017-09-11] MEDS ORDERED: GLUCAGON FOR INJ 1 MG VIAL (J1610) SC (15:30)
[2017-09-11] MEDS ORDERED: GLUCOSE 4 GM CHEW TABLET PO (15:30)
[2017-09-11] MEDS: HumaLOG INSULIN (NovoLOG) PER UNIT SC ×3 (15:39→20:53)
[2017-09-11 15:46] LABS: BEDSIDE GLUCOSE 311 MG/DL (80-115)
[2017-09-11 16:28] LABS: LDH LACTATE DEHYDROGENASE 354 U/L (84-246)
[2017-09-11] MEDS ORDERED: LIDOCAINE 1% MDV 20ML VIAL As Ordered (16:47)
[2017-09-11 17:51] LABS: BEDSIDE GLUCOSE 316 MG/DL (80-115)
[2017-09-11 19:49] LABS: BF MONONUCLEAR CELL % 85.5 % (0-0); BF POLYMORPHONUCLEAR CELL % 14.5 % (0-0); RBC BODY FLUID < 2 10^3/uL (<2); WBC BODY FLUID 97 /uL (0-10)
[2017-09-11 19:50] LABS: APPEARANCE, BODY FLUID HAZY (CLEAR); PLEURAL FL COLOR YELLOW (COLORLESS); SOURCE, BODY FLUID PLEURAL
[2017-09-11 19:51] LABS: BF DIFF IF INDICATED? YES (NO)
[2017-09-11 19:53] LABS: PH BODY FLUID 7.712 UNITS (NOT ESTABLISHED); SOURCE, BODY FLUID pH PLEURAL
[2017-09-11] MEDS: FERROUS SULFATE 325MG TAB PO (20:07)
[2017-09-11] MEDS: oxyCODONE 5MG TAB PO (20:08)
[2017-09-11] MEDS: MECLIZINE 25 MG TABLET PO (20:08)
[2017-09-11 20:52] LABS: AMYLASE, BODY FLUID 7 U/L (NOT ESTABLISHED); CHOLESTEROL, BODY FLUID < 50 MG/DL (NOT ESTABLISHED); LDH, BODY FLUID 40 U/L (NOT ESTABLISHED); SOURCE, BODY FLUID ALBUMIN PLEURAL; SOURCE, BODY FLUID AMYLASE PLEURAL; SOURCE, BODY FLUID CHOL PLEURAL; SOURCE, BODY FLUID GLUCOSE PLEURAL; SOURCE, BODY FLUID LDH PLEURAL; SOURCE, BODY FLUID TOT PROTEIN PLEURAL; SOURCE, BODY FLUID TRIG PLEURAL; TOTAL PROTEIN, BODY FLUID 0.6 G/DL (NOT ESTABLISHED); TRIGLYCERIDE, BODY FLUID 55 MG/DL (NOT ESTABLISHED)
[2017-09-11] MEDS: LEVEMIR (INSULIN DETEMIR) 1 UNITS/0.01ML SC (20:53)
[2017-09-11 21:35] LABS: PHOSPHORUS LEVEL 4.5 MG/DL (2.5-4.9)
[2017-09-11 21:51] LABS: BEDSIDE GLUCOSE 307 MG/DL (80-115)
[2017-09-11] MEDS: HEPARIN SOD (PORCINE) 5000 UNITS/ML VIAL SC (21:51)
[2017-09-12] MEDS: NS 1,000 ML IV ×2 (00:33→04:22)
[2017-09-12] MEDS: diphenhydrAMINE 25 MG CAP PO (00:36)
[2017-09-12 04:10] LABS: BEDSIDE GLUCOSE 260 MG/DL (80-115)
[2017-09-12 05:44] LABS: BASO % 0.7 % (0.0-1.0); EOS # 0.1 10^3/uL (0.0-0.50); EOS % 3.1 % (0.0-3.0); HEMATOCRIT 34.3 % (36.0-47.0); HEMOGLOBIN 11.3 g/dl (12.0-16.0); IMMATURE GRANULOCYTE % 0.3 % (0-0); LYMPH # 0.9 10^3/uL (1.5-4.5); LYMPH % 31.5 % (24.0-44.0); MEAN CORPUSCULAR HEMOGLOBIN 32.8 pg (27.0-33.0); MEAN CORPUSCULAR HGB CONC 32.9 g/dl (32.0-36.5); MEAN CORPUSCULAR VOLUME 99.7 fl (80.0-96.0); MONO # 0.3 10^3/uL (0.0-0.8); MONO % 8.9 % (0.0-5.0); NEUTROPHILS # 1.6 10^3/uL (1.8-7.7); NEUTROPHILS % 55.5 % (36.0-66.0); RED BLOOD COUNT 3.44 10^6/uL (4.00-5.40); RED CELL DISTRIBUTION WIDTH 13.4 % (11.5-14.5); WHITE BLOOD COUNT 2.9 10^3/uL (4.0-10.0)
[2017-09-12 05:50] LABS: PLATELET COUNT, AUTOMATED 61 10^3/uL (150-450)
[2017-09-12 06:08] LABS: ANION GAP 7 MEQ/L (8-16); BLOOD UREA NITROGEN 19 MG/DL (7-18); CALCIUM LEVEL 7.8 MG/DL (8.8-10.2); CARBON DIOXIDE LEVEL 26 MEQ/L (21-32); CHLORIDE LEVEL 108 MEQ/L (98-107); CREATININE FOR GFR 0.78 MG/DL (0.55-1.30); GLOMERULAR FILTRATION RATE > 60.0 (>45); GLUCOSE, FASTING 119 MG/DL (70-100); PHOSPHORUS LEVEL 2.9 MG/DL (2.5-4.9); POTASSIUM SERUM 3.6 MEQ/L (3.5-5.1); SODIUM LEVEL 141 MEQ/L (136-145)
[2017-09-12] MEDS: HEPARIN SOD (PORCINE) 5000 UNITS/ML VIAL SC ×3 (06:08→21:11)
[2017-09-12 07:51] LABS: ALBUMIN 2.4 GM/DL (3.2-5.2)
[2017-09-12] MEDS: ASPIRIN 81 MG ENTERIC TAB PO (09:21)
[2017-09-12] MEDS: ESCITALOPRAM OXALATE 10 MG TAB (LEXAPRO) PO (09:21)
[2017-09-12] MEDS: FERROUS SULFATE 325MG TAB PO ×2 (09:21→21:03)
[2017-09-12] MEDS: MECLIZINE 25 MG TABLET PO ×2 (09:22→21:02)
[2017-09-12] MEDS: PANTOPRAZOLE 40MG TAB (PROTONIX) PO (09:22)
[2017-09-12] MEDS: HumaLOG INSULIN (NovoLOG) PER UNIT SC ×4 (09:22→21:01)
[2017-09-12] MEDS: LEVEMIR (INSULIN DETEMIR) 1 UNITS/0.01ML SC ×2 (09:22→21:01)
[2017-09-12] MEDS: NADOLOL 20MG TABLET PO (09:33)
[2017-09-12 14:52] LABS: PHOSPHOROUS,RANDOM URINE 88.6 MG/DL
[2017-09-12 17:15] LABS: BEDSIDE GLUCOSE 232 MG/DL (80-115)
[2017-09-12 17:15] LABS: BEDSIDE GLUCOSE 272 MG/DL (80-115)
[2017-09-12] MEDS: oxyCODONE 5MG TAB PO (21:02)
[2017-09-12] MEDS: SPIRONOLACTONE 50 MG TAB PO (21:04)
[2017-09-13 00:47] LABS: BEDSIDE GLUCOSE 303 MG/DL (80-115)
[2017-09-13] MEDS: diphenhydrAMINE 25 MG CAP PO (01:15)
[2017-09-13 05:54] LABS: BASO % 0.7 % (0.0-1.0); EOS # 0.1 10^3/uL (0.0-0.50); EOS % 2.9 % (0.0-3.0); HEMATOCRIT 35.9 % (36.0-47.0); HEMOGLOBIN 11.6 g/dl (12.0-16.0); IMMATURE GRANULOCYTE % 0.3 % (0-0); LYMPH # 0.8 10^3/uL (1.5-4.5); LYMPH % 25.8 % (24.0-44.0); MEAN CORPUSCULAR HEMOGLOBIN 32.1 pg (27.0-33.0); MEAN CORPUSCULAR HGB CONC 32.3 g/dl (32.0-36.5); MEAN CORPUSCULAR VOLUME 99.4 fl (80.0-96.0); MONO # 0.3 10^3/uL (0.0-0.8); MONO % 8.5 % (0.0-5.0); NEUTROPHILS # 1.9 10^3/uL (1.8-7.7); NEUTROPHILS % 61.8 % (36.0-66.0); RED BLOOD COUNT 3.61 10^6/uL (4.00-5.40); RED CELL DISTRIBUTION WIDTH 13.3 % (11.5-14.5); WHITE BLOOD COUNT 3.1 10^3/uL (4.0-10.0)
[2017-09-13 05:57] LABS: ANION GAP 4 MEQ/L (8-16); BLOOD UREA NITROGEN 16 MG/DL (7-18); CALCIUM LEVEL 8.3 MG/DL (8.8-10.2); CARBON DIOXIDE LEVEL 28 MEQ/L (21-32); CHLORIDE LEVEL 108 MEQ/L (98-107); CREATININE FOR GFR 0.89 MG/DL (0.55-1.30); GLOMERULAR FILTRATION RATE > 60.0 (>45); GLUCOSE, FASTING 144 MG/DL (70-100); PHOSPHORUS LEVEL 2.3 MG/DL (2.5-4.9); PLATELET COUNT, AUTOMATED 66 10^3/uL (150-450); POTASSIUM SERUM 4.2 MEQ/L (3.5-5.1); SODIUM LEVEL 140 MEQ/L (136-145)
[2017-09-13 05:58] LABS: IMMATURE PLATELET FRACTION % 5.7 % (0.0-9.6)
[2017-09-13] MEDS: HEPARIN SOD (PORCINE) 5000 UNITS/ML VIAL SC ×2 (06:10→14:00)
[2017-09-13] MEDS ORDERED: FUROSEMIDE 40 MG TAB PO (09:00)
[2017-09-13] MEDS: FERROUS SULFATE 325MG TAB PO (09:05)
[2017-09-13] MEDS: PANTOPRAZOLE 40MG TAB (PROTONIX) PO (09:05)
[2017-09-13] MEDS: MECLIZINE 25 MG TABLET PO (09:06)
[2017-09-13] MEDS: HumaLOG INSULIN (NovoLOG) PER UNIT SC ×2 (09:06→13:00)
[2017-09-13] MEDS: LEVEMIR (INSULIN DETEMIR) 1 UNITS/0.01ML SC (09:06)
[2017-09-13] MEDS: ESCITALOPRAM OXALATE 10 MG TAB (LEXAPRO) PO (09:07)
[2017-09-13] MEDS: FUROSEMIDE 20 MG TAB PO (09:07)
[2017-09-13] MEDS: ASPIRIN 81 MG ENTERIC TAB PO (09:07)
[2017-09-13] MEDS: NADOLOL 20MG TABLET PO (09:10)
[2017-09-13] MEDS: SPIRONOLACTONE 50 MG TAB PO (09:11)
[2017-09-13] MEDS: K-PHOS ORIGINAL (POT.ACID PHOSPHATE) 500MG TAB PO ×2 (09:49→13:00)
[2017-09-13 12:00] LABS: BEDSIDE GLUCOSE 208 MG/DL (80-115)
[2017-09-13 12:56] LABS: PHOSPHORUS LEVEL 2.5 MG/DL (2.5-4.9)
== END 2017-09-13 14:35 | disposition home or self-care (01) | DRG 638 ==
LOC: M ED 11:25 → M ED INP 16:02 → M PCU 17:58
PROVIDERS: Hospitalist
PROC: 0W993ZZ Drainage of Right Pleural Cavity, Percutaneous Approach (ICD-10-PCS; principal; 2017-09-11)
DX: E11.65 Type 2 diabetes mellitus with hyperglycemia (principal); E87.1 Hypo-osmolality and hyponatremia; E87.2 Acidosis; J90 Pleural effusion, not elsewhere classified; D61.818 Other pancytopenia; K76.6 Portal hypertension; I85.10 Secondary esophageal varices without bleeding; N17.9 Acute kidney failure, unspecified; K21.9 Gastro-esophageal reflux disease without esophagitis; F32.9 Major depressive disorder, single episode, unspecified; K74.60 Unspecified cirrhosis of liver; K75.81 Nonalcoholic steatohepatitis (NASH); E83.39 Other disorders of phosphorus metabolism; R42 Dizziness and giddiness; I10 Essential (primary) hypertension; E78.00 Pure hypercholesterolemia, unspecified; Z79.82 Long term (current) use of aspirin; Z79.899 Other long term (current) drug therapy; Z88.6 Allergy status to analgesic agent; Z88.8 Allergy status to other drugs, medicaments and biological substances; Z79.4 Long term (current) use of insulin

== ENCOUNTER → 2017-09-21 | Outpatient (REF) | payer OTHER ==
[2017-09-21 20:31] LABS: ALBUMIN 3.2 GM/DL (3.2-5.2); ALKALINE PHOSPHATASE 288 U/L (45-117); ALT/SGPT 39 U/L (12-78); ANION GAP 8 MEQ/L (8-16); AST/SGOT 25 U/L (7-37); BILIRUBIN,TOTAL 0.6 MG/DL (0.2-1.0); BLOOD UREA NITROGEN 19 MG/DL (7-18); CALCIUM LEVEL 8.3 MG/DL (8.8-10.2); CARBON DIOXIDE LEVEL 29 MEQ/L (21-32); CHLORIDE LEVEL 102 MEQ/L (98-107); GLOMERULAR FILTRATION RATE 53.6 (>45); GLUCOSE, FASTING 340 MG/DL (70-100); MAGNESIUM LEVEL 2.3 MG/DL (1.8-2.4); POTASSIUM SERUM 4.5 MEQ/L (3.5-5.1); SODIUM LEVEL 139 MEQ/L (136-145); TOTAL PROTEIN 7.2 GM/DL (6.4-8.2)
== END ==
LOC: M SFHCLERA 15:20
DX: E11.9 Type 2 diabetes mellitus without complications (principal)

== ENCOUNTER → 2017-10-16 | Outpatient (REF) | payer OTHER ==
[2017-10-16 18:51] LABS: ESTIMATED AVERAGE GLUCOSE 209 MG/DL (60-110); HEMOGLOBIN A1c 8.9 %
[2017-10-16 18:54] LABS: ANION GAP 9 MEQ/L (8-16); BLOOD UREA NITROGEN 17 MG/DL (7-18); CALCIUM LEVEL 8.2 MG/DL (8.8-10.2); CARBON DIOXIDE LEVEL 24 MEQ/L (21-32); CHLORIDE LEVEL 109 MEQ/L (98-107); CREATININE FOR GFR 0.91 MG/DL (0.55-1.30); GLOMERULAR FILTRATION RATE > 60.0 (>45); GLUCOSE, FASTING 282 MG/DL (70-100); MAGNESIUM LEVEL 2.1 MG/DL (1.8-2.4); PHOSPHORUS LEVEL 2.6 MG/DL (2.5-4.9); POTASSIUM SERUM 3.9 MEQ/L (3.5-5.1); SODIUM LEVEL 142 MEQ/L (136-145)
== END ==
LOC: M SFHCLERA 14:20
DX: K75.81 Nonalcoholic steatohepatitis (NASH) (principal); E11.9 Type 2 diabetes mellitus without complications

== ENCOUNTER 2018-01-01 13:59 | Inpatient (IN) | payer OTHER ==
[2018-01-01] MEDS: NS 1,000 ML IV (14:17)
[2018-01-01 14:31] LABS: BASO % 0.4 % (0.0-1.0); EOS % 1.3 % (0.0-3.0); HEMATOCRIT 34.4 % (36.0-47.0); IMMATURE GRANULOCYTE % 0.4 % (0-3.0); LYMPH # 0.4 10^3/uL (1.5-4.5); LYMPH % 19.1 % (24.0-44.0); MEAN CORPUSCULAR HEMOGLOBIN 31.3 pg (27.0-33.0); MONO # 0.2 10^3/uL (0.0-0.8); MONO % 7.8 % (0.0-5.0); NEUTROPHILS # 1.6 10^3/uL (1.8-7.7); RED BLOOD COUNT 3.51 10^6/uL (4.00-5.40); RED CELL DISTRIBUTION WIDTH 13.9 % (11.5-14.5); WHITE BLOOD COUNT 2.3 10^3/uL (4.0-10.0)
[2018-01-01 14:37] LABS: IMMATURE PLATELET FRACTION % 6.4 % (0.0-9.6); PLATELET COUNT, AUTOMATED 61 10^3/uL (150-450); PLATELET F 3.6
[2018-01-01 14:48] LABS: ABG BASE EXCESS -0.8 (-2.0-2.0); ABG O2 SATURATION 98.2 % (95.0-99.0); ABG PARTIAL PRESSURE CO2 26.2 mmHg (35.0-45.0); ABG PARTIAL PRESSURE O2 101.7 mmHg (75.0-100.0); ABG STANDARD HCO3 23.9 MEQ/L (22.0-26.0); ABG TOTAL CO2 21.8 MEQ/L (23.0-31.0); ABG pH (ARTERIAL) 7.521 UNITS (7.350-7.450)
[2018-01-01 14:51] LABS: AMMONIA 16 uMOL/L (<32)
[2018-01-01 14:53] LABS: BEDSIDE GLUCOSE 289 MG/DL (80-115)
[2018-01-01 14:56] LABS: ACETAMINOPHEN LEVEL < 2.0 UG/ML (10.0-30.0); ALBUMIN 2.7 GM/DL (3.2-5.2); ALBUMIN/GLOBULIN RATIO 0.66 (1.00-1.93); ALKALINE PHOSPHATASE 260 U/L (45-117); ALT/SGPT 32 U/L (12-78); ANION GAP 8 MEQ/L (8-16); AST/SGOT 34 U/L (7-37); BILIRUBIN,DIRECT 0.2 MG/DL (0.0-0.2); BILIRUBIN,TOTAL 0.8 MG/DL (0.2-1.0); BLOOD UREA NITROGEN 8 MG/DL (7-18); CALCIUM LEVEL 8.2 MG/DL (8.8-10.2); CARBON DIOXIDE LEVEL 23 MEQ/L (21-32); CHLORIDE LEVEL 111 MEQ/L (98-107); CPK CREATINE PHOSPHOKINASE 64 U/L (26-192); CREATININE FOR GFR 0.84 MG/DL (0.55-1.30); GLOMERULAR FILTRATION RATE > 60.0 (>45); GLUCOSE, FASTING 254 MG/DL (70-100); SALICYLATE LEVEL < 1.7 MG/DL (5.0-30.0); SODIUM LEVEL 142 MEQ/L (136-145); TOTAL PROTEIN 6.8 GM/DL (6.4-8.2); TROPONIN I < 0.02 NG/ML (< 0.10)
[2018-01-01 15:00] LABS: CK-MB VALUE MASS 1.3 NG/ML (<3.6); MB/CK RELATIVE INDEX 2.03 (< OR =4); THYROID STIMULATING HORMONE 0.854 uIU/ML (0.358-3.740)
[2018-01-01 15:07] LABS: ETHYL ALCOHOL (ETHANOL) < 0.003 % (0.000-0.010)
[2018-01-01 15:08] LABS: LACTIC ACID SEPSIS PROTOCOL 2.1 MMOL/L (0.4-2.0)
[2018-01-01 15:08] LABS: KETONE, URINE AUTO RFX TRACE mg/dL (NEGATIVE); LEUKOCYTE ESTERASE UR AUTO RFX NEGATIVE (NEGATIVE); MUCUS, URINE RFX LARGE (NEGATIVE); NITRITE, URINE AUTO RFX NEGATIVE (NEGATIVE); RBC, URINE AUTO RFX 2 /HPF (0-3); SPECIFIC GRAVITY UR AUTO RFX 1.028 (1.002-1.035); SQUAM EPITHELIAL CELL UR AURFX 4 /HPF (0-6); WBC, URINE AUTO RFX 2 /HPF (0-3)
[2018-01-01 15:22] LABS: AMPHETAMINES LEVEL URINE NEGATIVE (NEGATIVE); BARBITURATES URINE NEGATIVE (NEGATIVE); BENZODIAZEPINES URINE NEGATIVE (NEGATIVE); CANNABINOIDS URINE NEGATIVE (NEGATIVE); COCAINE METABOLITE URINE NEGATIVE (NEGATIVE); METHADONE URINE NEGATIVE (NEGATIVE); OPIATES URINE NEGATIVE (NEGATIVE); PHENCYCLIDINE URINE NEGATIVE (NEGATIVE)
[2018-01-01 15:26] LABS: LIPASE 98 U/L (73-393)
[2018-01-01] MEDS ORDERED: DEXTROSE 50% 50 ML SYRINGE IV (16:00)
[2018-01-01] MEDS ORDERED: GLUCOSE 4 GM CHEW TABLET PO (16:00)
[2018-01-01] MEDS ORDERED: GLUCAGON FOR INJ 1 MG VIAL (J1610) SC (16:00)
[2018-01-01] MEDS: MORPHINE 4 MG/ML 1ML VIAL/SYRINGE (J2270) IV (18:04)
[2018-01-01] MEDS: HumaLOG INSULIN (NovoLOG) PER UNIT SC ×2 (18:05→20:56)
[2018-01-01] MEDS: FUROSEMIDE 20 MG TAB PO (18:06)
[2018-01-01 20:40] LABS: BEDSIDE GLUCOSE 220 MG/DL (80-115)
[2018-01-01 20:41] LABS: BEDSIDE GLUCOSE 293 MG/DL (80-115)
[2018-01-01] MEDS: LEVEMIR (INSULIN DETEMIR) 1 UNITS/0.01ML SC (20:55)
[2018-01-01] MEDS: MECLIZINE 25 MG TABLET PO (20:56)
[2018-01-01] MEDS: FERROUS SULFATE 325MG TAB PO (20:56)
[2018-01-01] MEDS: SPIRONOLACTONE 50 MG TAB PO (20:56)
[2018-01-01] MEDS: LIDOCAINE 5% (LIDODERM) PATCH TD (20:57)
[2018-01-01 21:06] LABS: INR 1.21; PROTHROMBIN TIME 15.5 SECONDS (12.4-14.5)
[2018-01-01 21:07] LABS: PARTIAL THROMBOPLASTIN TIME 26.4 SECONDS (26.8-37.9)
[2018-01-01] MEDS: ONDANSETRON 4MG/2ML VIAL (J2405) IV (23:09)
[2018-01-02] MEDS: NS 1,000 ML IV (00:14)
[2018-01-02 05:35] LABS: HEMOGLOBIN 10.1 g/dl (12.0-15.5); MEAN CORPUSCULAR HGB CONC 31.6 g/dl (32.0-36.5); MEAN CORPUSCULAR VOLUME 98.2 fl (80.0-96.0); RED BLOOD COUNT 3.26 10^6/uL (4.00-5.40); RED CELL DISTRIBUTION WIDTH 13.7 % (11.5-14.5)
[2018-01-02 05:45] LABS: INR 1.44; PROTHROMBIN TIME 17.9 SECONDS (12.4-14.5)
[2018-01-02 06:11] LABS: BLOOD UREA NITROGEN 7 MG/DL (7-18); CREATININE FOR GFR 0.79 MG/DL (0.55-1.30); GLOMERULAR FILTRATION RATE > 60.0 (>45); GLUCOSE, FASTING 141 MG/DL (70-100); SODIUM LEVEL 143 MEQ/L (136-145)
[2018-01-02 06:12] LABS: ALBUMIN 2.5 GM/DL (3.2-5.2); ALBUMIN/GLOBULIN RATIO 0.66 (1.00-1.93); ALKALINE PHOSPHATASE 240 U/L (45-117); ALT/SGPT 31 U/L (12-78); ANION GAP 6 MEQ/L (8-16); AST/SGOT 26 U/L (7-37); BILIRUBIN,TOTAL 0.6 MG/DL (0.2-1.0); CALCIUM LEVEL 7.7 MG/DL (8.8-10.2); CARBON DIOXIDE LEVEL 27 MEQ/L (21-32); CHLORIDE LEVEL 110 MEQ/L (98-107); MAGNESIUM LEVEL 1.6 MG/DL (1.8-2.4); POTASSIUM SERUM 3.3 MEQ/L (3.5-5.1); TOTAL PROTEIN 6.3 GM/DL (6.4-8.2)
[2018-01-02 06:15] LABS: PLATELET COUNT, AUTOMATED 58 10^3/uL (150-450); POS COUNT POS FLAG; WHITE BLOOD COUNT 1.9 10^3/uL (4.0-10.0)
[2018-01-02] MEDS: MAG SULF 1GM/100ML (MAG RUN) 1 GM in APPROPRIATE DILUENT 1 EA IV (07:55)
[2018-01-02] MEDS: MECLIZINE 25 MG TABLET PO ×2 (07:56→21:34)
[2018-01-02] MEDS: POTASSIUM CHLORIDE 10 MEQ SR TABLET PO (07:56)
[2018-01-02] MEDS: SPIRONOLACTONE 50 MG TAB PO ×2 (07:56→22:14)
[2018-01-02] MEDS: FUROSEMIDE 20 MG TAB PO ×2 (07:56→17:00)
[2018-01-02] MEDS: NADOLOL 20MG TABLET PO (07:57)
[2018-01-02] MEDS: ESCITALOPRAM OXALATE 10 MG TAB (LEXAPRO) PO (07:57)
[2018-01-02] MEDS: PANTOPRAZOLE 40MG TAB (PROTONIX) PO (07:57)
[2018-01-02] MEDS: FERROUS SULFATE 325MG TAB PO ×2 (07:57→21:36)
[2018-01-02] MEDS: **NOTE PATIENT COMMENT** MISC XX (07:58)
[2018-01-02] MEDS: HumaLOG INSULIN (NovoLOG) PER UNIT SC ×4 (07:58→21:37)
[2018-01-02] MEDS: LEVEMIR (INSULIN DETEMIR) 1 UNITS/0.01ML SC ×2 (07:58→21:38)
[2018-01-02] MEDS ORDERED: BUMETANIDE 1 MG TAB PO (09:00)
[2018-01-02 11:52] LABS: BEDSIDE GLUCOSE 250 MG/DL (80-115)
[2018-01-02 13:54] LABS: RBC BODY FLUID < 2 10^3/uL (<2)
[2018-01-02 13:56] LABS: APPEARANCE, BODY FLUID HAZY (CLEAR); ASCITES FL COLOR YELLOW (COLORLESS); SOURCE, BODY FLUID ASCITES; SPEC. GRAVITY BODY FLUIDS 1.009 (NOT ESTABLISHED); WBC BODY FLUID < 1 /uL (0-10)
[2018-01-02 13:57] LABS: BF DIFF IF INDICATED? NO (NO)
[2018-01-02 14:21] LABS: SOURCE, BODY FLUID ALBUMIN ASCITES; SOURCE, BODY FLUID GLUCOSE ASCITES; SOURCE, BODY FLUID TOT PROTEIN ASCITES; TOTAL PROTEIN, BODY FLUID 0.6 G/DL (NOT ESTABLISHED)
[2018-01-02 17:01] LABS: BEDSIDE GLUCOSE 344 MG/DL (80-115)
[2018-01-02 21:00] LABS: BEDSIDE GLUCOSE 273 MG/DL (80-115)
[2018-01-02] MEDS: LIDOCAINE 5% (LIDODERM) PATCH TD (21:00)
[2018-01-02 22:32] LABS: BEDSIDE GLUCOSE 217 MG/DL (80-115)
[2018-01-03 06:03] LABS: HEMATOCRIT 33.1 % (36.0-47.0); HEMOGLOBIN 10.5 g/dl (12.0-15.5); MEAN CORPUSCULAR HEMOGLOBIN 31.1 pg (27.0-33.0); MEAN CORPUSCULAR HGB CONC 31.7 g/dl (32.0-36.5); MEAN CORPUSCULAR VOLUME 97.9 fl (80.0-96.0); RED BLOOD COUNT 3.38 10^6/uL (4.00-5.40); RED CELL DISTRIBUTION WIDTH 13.5 % (11.5-14.5); WHITE BLOOD COUNT 2.2 10^3/uL (4.0-10.0)
[2018-01-03 06:07] LABS: INR 1.26
[2018-01-03 06:11] LABS: PLATELET COUNT, AUTOMATED 62 10^3/uL (150-450)
[2018-01-03 06:33] LABS: ALBUMIN 2.4 GM/DL (3.2-5.2); ALKALINE PHOSPHATASE 224 U/L (45-117); ALT/SGPT 27 U/L (12-78); ANION GAP 6 MEQ/L (8-16); AST/SGOT 23 U/L (7-37); BILIRUBIN,TOTAL 0.4 MG/DL (0.2-1.0); BLOOD UREA NITROGEN 13 MG/DL (7-18); CARBON DIOXIDE LEVEL 28 MEQ/L (21-32); CHLORIDE LEVEL 108 MEQ/L (98-107); CREATININE FOR GFR 0.96 MG/DL (0.55-1.30); GLOMERULAR FILTRATION RATE > 60.0 (>45); GLUCOSE, FASTING 249 MG/DL (70-100); POTASSIUM SERUM 4.2 MEQ/L (3.5-5.1); SODIUM LEVEL 142 MEQ/L (136-145); TOTAL PROTEIN 6.4 GM/DL (6.4-8.2)
[2018-01-03] MEDS: NADOLOL 20MG TABLET PO (09:00)
[2018-01-03] MEDS: **NOTE PATIENT COMMENT** MISC XX (09:00)
[2018-01-03] MEDS: HumaLOG INSULIN (NovoLOG) PER UNIT SC ×4 (09:00→21:49)
[2018-01-03] MEDS: LEVEMIR (INSULIN DETEMIR) 1 UNITS/0.01ML SC ×2 (10:05→21:49)
[2018-01-03] MEDS: PANTOPRAZOLE 40MG TAB (PROTONIX) PO (10:06)
[2018-01-03] MEDS: FERROUS SULFATE 325MG TAB PO ×2 (10:06→21:48)
[2018-01-03] MEDS: SPIRONOLACTONE 50 MG TAB PO ×2 (10:06→21:48)
[2018-01-03] MEDS: FUROSEMIDE 20 MG TAB PO ×2 (10:07→18:11)
[2018-01-03] MEDS: ESCITALOPRAM OXALATE 10 MG TAB (LEXAPRO) PO (10:08)
[2018-01-03] MEDS: MECLIZINE 25 MG TABLET PO ×2 (10:08→21:48)
[2018-01-03 11:53] LABS: BEDSIDE GLUCOSE 266 MG/DL (80-115)
[2018-01-03 16:56] LABS: BEDSIDE GLUCOSE 323 MG/DL (80-115)
[2018-01-03 19:52] LABS: BEDSIDE GLUCOSE 294 MG/DL (80-115)
[2018-01-03] MEDS: diphenhydrAMINE 25 MG CAP PO (21:48)
[2018-01-03] MEDS: LIDOCAINE 5% (LIDODERM) PATCH TD (21:49)
[2018-01-03] MEDS: ONDANSETRON 4MG/2ML VIAL (J2405) IV (23:22)
[2018-01-04 06:23] LABS: HEMATOCRIT 33.8 % (36.0-47.0); HEMOGLOBIN 10.9 g/dl (12.0-15.5); MEAN CORPUSCULAR HEMOGLOBIN 30.9 pg (27.0-33.0); MEAN CORPUSCULAR HGB CONC 32.2 g/dl (32.0-36.5); MEAN CORPUSCULAR VOLUME 95.8 fl (80.0-96.0); RED BLOOD COUNT 3.53 10^6/uL (4.00-5.40); RED CELL DISTRIBUTION WIDTH 13.6 % (11.5-14.5); WHITE BLOOD COUNT 2.4 10^3/uL (4.0-10.0)
[2018-01-04 06:24] LABS: IMMATURE PLATELET FRACTION % 8.5 % (0.0-9.6); PLATELET COUNT, AUTOMATED 59 10^3/uL (150-450)
[2018-01-04 06:42] LABS: INR 1.21; PROTHROMBIN TIME 15.6 SECONDS (12.4-14.5)
[2018-01-04 06:56] LABS: ALBUMIN 2.6 GM/DL (3.2-5.2); ALBUMIN/GLOBULIN RATIO 0.62 (1.00-1.93); ALKALINE PHOSPHATASE 212 U/L (45-117); ALT/SGPT 26 U/L (12-78); ANION GAP 8 MEQ/L (8-16); AST/SGOT 28 U/L (7-37); BILIRUBIN,TOTAL 0.5 MG/DL (0.2-1.0); BLOOD UREA NITROGEN 14 MG/DL (7-18); CALCIUM LEVEL 8.4 MG/DL (8.8-10.2); CARBON DIOXIDE LEVEL 29 MEQ/L (21-32); CHLORIDE LEVEL 104 MEQ/L (98-107); CREATININE FOR GFR 0.96 MG/DL (0.55-1.30); GLOMERULAR FILTRATION RATE > 60.0 (>45); GLUCOSE, FASTING 227 MG/DL (70-100); MAGNESIUM LEVEL 1.7 MG/DL (1.8-2.4); POTASSIUM SERUM 3.6 MEQ/L (3.5-5.1); SODIUM LEVEL 141 MEQ/L (136-145); TOTAL PROTEIN 6.8 GM/DL (6.4-8.2)
[2018-01-04] MEDS: MECLIZINE 25 MG TABLET PO (08:26)
[2018-01-04] MEDS: FUROSEMIDE 20 MG TAB PO (08:26)
[2018-01-04] MEDS: FERROUS SULFATE 325MG TAB PO (08:26)
[2018-01-04] MEDS: MAG SULF 1GM/100ML (MAG RUN) 1 GM in APPROPRIATE DILUENT 1 EA IV (08:27)
[2018-01-04] MEDS: MAGNESIUM OXIDE 400 MG TAB (MAG-OX) PO (08:27)
[2018-01-04] MEDS: SPIRONOLACTONE 50 MG TAB PO (08:27)
[2018-01-04] MEDS: ESCITALOPRAM OXALATE 10 MG TAB (LEXAPRO) PO (08:27)
[2018-01-04] MEDS: HumaLOG INSULIN (NovoLOG) PER UNIT SC ×3 (08:28→12:12)
[2018-01-04] MEDS: LEVEMIR (INSULIN DETEMIR) 1 UNITS/0.01ML SC (08:28)
[2018-01-04] MEDS: NADOLOL 20MG TABLET PO (08:31)
[2018-01-04] MEDS: PANTOPRAZOLE 40MG TAB (PROTONIX) PO (08:31)
[2018-01-04] MEDS: **NOTE PATIENT COMMENT** MISC XX (08:45)
[2018-01-04] MEDS: ONDANSETRON 4MG/2ML VIAL (J2405) IV (09:16)
[2018-01-04 11:37] LABS: BEDSIDE GLUCOSE 316 MG/DL (80-115)
== END 2018-01-04 16:52 | disposition home or self-care (01) | DRG 312 ==
LOC: M MSPAV 01-03 15:05 → M ED 13:59 → M ED INP 15:58 → M PCU 23:36
PROC: 0W9G3ZZ Drainage of Peritoneal Cavity, Percutaneous Approach (ICD-10-PCS; principal; 2018-01-02)
DX: R55 Syncope and collapse (principal); D61.818 Other pancytopenia; R18.8 Other ascites; F32.9 Major depressive disorder, single episode, unspecified; E78.5 Hyperlipidemia, unspecified; I10 Essential (primary) hypertension; K74.69 Other cirrhosis of liver; F41.9 Anxiety disorder, unspecified; K75.81 Nonalcoholic steatohepatitis (NASH); K21.9 Gastro-esophageal reflux disease without esophagitis; Q27.33 Arteriovenous malformation of digestive system vessel; E11.9 Type 2 diabetes mellitus without complications; Z79.82 Long term (current) use of aspirin; Z79.899 Other long term (current) drug therapy; Z79.4 Long term (current) use of insulin

== ENCOUNTER 2018-04-02 20:56 | Emergency (ER) | payer OTHER ==
[2018-04-02] MEDS: MORPHINE 4 MG/ML 1ML VIAL/SYRINGE (J2270) IM (23:23)
[2018-04-03 00:05] LABS: BEDSIDE GLUCOSE 106 MG/DL (80-115)
[2018-04-03] MEDS: traMADol 50 MG TAB (BULK 4 TAB ED) PO (00:29)
== END 2018-04-03 00:38 | disposition home or self-care (01) ==
LOC: M ED 04-03 00:38
DX: S70.01XA Contusion of right hip, initial encounter (principal); S40.011A Contusion of right shoulder, initial encounter; S80.02XA Contusion of left knee, initial encounter; W01.10XA Fall on same level from slipping, tripping and stumbling with subsequent striking against unspecified object, initial encounter; Y92.000 Kitchen of unspecified non-institutional (private) residence as the place of occurrence of the external cause; E66.9 Obesity, unspecified; E11.9 Type 2 diabetes mellitus without complications; I11.0 Hypertensive heart disease with heart failure; I50.9 Heart failure, unspecified; K21.9 Gastro-esophageal reflux disease without esophagitis; D50.9 Iron deficiency anemia, unspecified; Z88.8 Allergy status to other drugs, medicaments and biological substances; Z91.048 Other nonmedicinal substance allergy status; Z79.4 Long term (current) use of insulin; Z79.82 Long term (current) use of aspirin; Z79.899 Other long term (current) drug therapy
CPT/HCPCS: J2270

== ENCOUNTER 2018-06-28 14:48 | Emergency (ER) | payer OTHER ==
[2018-06-28 15:08] LABS: BEDSIDE GLUCOSE 282 MG/DL (80-115)
[2018-06-28 15:33] LABS: BASO % 0.6 % (0.0-1.0); EOS # 0.1 10^3/uL (0.0-0.50); EOS % 1.9 % (0.0-3.0); HEMOGLOBIN 11.5 g/dl (12.0-15.5); IMMATURE GRANULOCYTE % 0.3 % (0-3.0); LYMPH # 0.6 10^3/uL (1.5-4.5); LYMPH % 17.9 % (24.0-44.0); MEAN CORPUSCULAR HEMOGLOBIN 31.5 pg (27.0-33.0); MEAN CORPUSCULAR HGB CONC 31.9 g/dl (32.0-36.5); MEAN CORPUSCULAR VOLUME 98.6 fl (80.0-96.0); MONO # 0.3 10^3/uL (0.0-0.8); MONO % 8.2 % (0.0-5.0); NEUTROPHILS # 2.3 10^3/uL (1.8-7.7); NEUTROPHILS % 71.1 % (36.0-66.0); RED BLOOD COUNT 3.65 10^6/uL (4.00-5.40); RED CELL DISTRIBUTION WIDTH 13.2 % (11.5-14.5); WHITE BLOOD COUNT 3.2 10^3/uL (4.0-10.0)
[2018-06-28 15:50] LABS: PROTHROMBIN TIME 15.4 SECONDS (12.1-14.4)
[2018-06-28 15:52] LABS: PLATELET COUNT, AUTOMATED 68 10^3/uL (150-450)
[2018-06-28 15:54] LABS: IMMATURE PLATELET FRACTION % 6.9 % (0.0-9.6)
[2018-06-28 16:00] LABS: ALBUMIN 2.8 GM/DL (3.2-5.2); ALBUMIN/GLOBULIN RATIO 0.74 (1.00-1.93); ALKALINE PHOSPHATASE 279 U/L (45-117); ALT/SGPT 42 U/L (12-78); ANION GAP 5 MEQ/L (8-16); AST/SGOT 35 U/L (7-37); BILIRUBIN,DIRECT 0.3 MG/DL (0.0-0.2); BILIRUBIN,TOTAL 0.6 MG/DL (0.2-1.0); BLOOD UREA NITROGEN 14 MG/DL (7-18); CALCIUM LEVEL 8.2 MG/DL (8.8-10.2); CARBON DIOXIDE LEVEL 31 MEQ/L (21-32); CHLORIDE LEVEL 104 MEQ/L (98-107); CK-MB VALUE MASS < 1.0 NG/ML (<3.6); CPK CREATINE PHOSPHOKINASE 45 U/L (26-192); CREATININE FOR GFR 0.93 MG/DL (0.55-1.30); GLOMERULAR FILTRATION RATE > 60.0 (>45); GLUCOSE, FASTING 271 MG/DL (70-100); LIPASE 127 U/L (73-393); MB/CK RELATIVE INDEX 2.22 (< OR =4); NT-PRO BNP 31 PG/ML (<125); POTASSIUM SERUM 4.5 MEQ/L (3.5-5.1); SODIUM LEVEL 140 MEQ/L (136-145); TOTAL PROTEIN 6.6 GM/DL (6.4-8.2); TROPONIN I < 0.02 NG/ML (< 0.10)
[2018-06-28] MEDS ORDERED: ISOVUE-370 76% 100ML VIAL (Q9967) As Ordered (16:37)
[2018-06-28] MEDS: traMADol 50 MG TAB PO (18:16)
[2018-06-28 21:36] LABS: CK-MB VALUE MASS < 1.0 NG/ML (<3.6); CPK CREATINE PHOSPHOKINASE 44 U/L (26-192); MB/CK RELATIVE INDEX 2.27 (< OR =4); TROPONIN I < 0.02 NG/ML (< 0.10)
[2018-06-28] MEDS ORDERED: DICYCLOMINE 10 MG CAP PO (22:00)
== END 2018-06-28 22:11 | disposition home or self-care (01) ==
LOC: M ED 14:48
DX: E11.65 Type 2 diabetes mellitus with hyperglycemia (principal); R55 Syncope and collapse; R10.9 Unspecified abdominal pain; I45.19 Other right bundle-branch block; I10 Essential (primary) hypertension; E11.21 Type 2 diabetes mellitus with diabetic nephropathy; G47.30 Sleep apnea, unspecified; F44.5 Conversion disorder with seizures or convulsions; D69.6 Thrombocytopenia, unspecified; K75.81 Nonalcoholic steatohepatitis (NASH); R18.8 Other ascites; K57.30 Diverticulosis of large intestine without perforation or abscess without bleeding; R16.1 Splenomegaly, not elsewhere classified; K80.20 Calculus of gallbladder without cholecystitis without obstruction; Z79.82 Long term (current) use of aspirin; Z79.4 Long term (current) use of insulin; Z79.899 Other long term (current) drug therapy; Z88.6 Allergy status to analgesic agent; Z88.8 Allergy status to other drugs, medicaments and biological substances; Z91.89 Other specified personal risk factors, not elsewhere classified
CPT/HCPCS: Q9967

== ENCOUNTER → 2018-07-09 | Outpatient (REF) | payer OTHER | LOC: M SFHCLERA 10:39 | DX: E11.65 Type 2 diabetes mellitus with hyperglycemia (principal) ==

== ENCOUNTER → 2018-09-16 | Outpatient (CLI) | payer OTHER ==
[~2018-09-16] MED LIST changes: +BENZ-18 PO; -BENZ100C5 PO; +BUME0.5T2 PO; -CALC1TAB17 PO; +CALC1TAB97 PO; +CVS6.5DR3 AU; +DICY1CAP8 PO; -DRIS50002 PO; +DRIS50003 PO; +ESCI10TA2 PO; +ESCI20TA PO; +GABA-1171; +GABA-1171 PO; -GABA-279; -GABA-279 PO; +KLOR10TA76 PO; -LASI20TA PO; +LASI20TA3 PO; -LASI40TA PO; +LASI40TA9 PO; +MAG400TA PO; +MECL-86 PO; -POTA10CA PO; +POTA50TAB PO; +SPIR-10 PO; -SPIR100T PO; +SPIR100T3 PO; -SPIR25TA2 PO; -SPIR50TA2 PO; +SPIR50TA4 PO; +TRAZ-160 PO; -TRAZ50TA11 PO; -[UNRECOGNIZED DRUG - CODE] AU
[2018-09-16 17:35] LABS: CREATININE FOR GFR 1.37 MG/DL (0.55-1.30); GLOMERULAR FILTRATION RATE 41.5 (>45)
[2018-09-16 17:36] LABS: CALCIUM LEVEL 8.5 MG/DL (8.8-10.2); POTASSIUM SERUM 4.4 MEQ/L (3.5-5.1)
== END ==
LOC: M LAB 13:09
PROVIDERS: ATTEND Family Medicine
DX: K75.81 Nonalcoholic steatohepatitis (NASH) (principal)

== ENCOUNTER → 2018-11-27 | Outpatient (CLI) | payer OTHER ==
[~2018-11-27] MED LIST changes: -ASPI1TAB PO; +ASPI81TA26 PO; -CALC1TAB97 PO; +CARBOT AU; -CVS6.5DR3 AU; +OYST500T78 PO; -VANC250C2 PO; +VANC250C3 PO
--- NOTE | 2018-11-27 10:16 | REP ---
LEFT HIP, TWO VIEWS: HISTORY: Hip pain. There is no acute fracture or dislocation. There is minimal narrowing of the joint space with associated sclerosis. IMPRESSION: Degenerative change as described above. Electronically Signed by Raymond Holley MD 11/27/2018 10:32 A
== END ==
LOC: M LRY 09:19
PROVIDERS: ATTEND Family Medicine
DX: M25.552 Pain in left hip (principal)

== ENCOUNTER 2018-12-26 19:59 | Observation (INO) | payer OTHER ==
[~2018-12-26] VITALS: Ht 154.9 cm; Wt 107.3 kg
[2018-12-26 20:41] LABS: BASO % 0.8 % (0.0-1.0); EOS # 0.2 10^3/uL (0.0-0.50); EOS % 3.6 % (0.0-3.0); HEMATOCRIT 31.7 % (36.0-47.0); HEMOGLOBIN 10.3 g/dl (12.0-15.5); LYMPH # 0.7 10^3/uL (1.5-4.5); LYMPH % 15.4 % (24.0-44.0); MEAN CORPUSCULAR HEMOGLOBIN 31.8 pg (27.0-33.0); MEAN CORPUSCULAR HGB CONC 32.5 g/dl (32.0-36.5); MEAN CORPUSCULAR VOLUME 97.8 fl (80.0-96.0); MONO # 0.4 10^3/uL (0.0-0.8); MONO % 9.3 % (0.0-5.0); NEUTROPHILS # 3.4 10^3/uL (1.8-7.7); NEUTROPHILS % 70.7 % (36.0-66.0); RED BLOOD COUNT 3.24 10^6/uL (4.00-5.40); VENOUS BASE EXCESS -0.1 (-2.0-2.0); VENOUS HCO3 25.7 MEQ/L (23.0-27.0); VENOUS O2 SATURATION 70.9 % (60.0-80.0); VENOUS PARTIAL PRESSURE CO2 46.7 mmHg (38.0-50.0); VENOUS PARTIAL PRESSURE O2 41.4 mmHg (30.0-50.0); VENOUS PH 7.358 UNITS (7.330-7.430); VENOUS STANDARD HCO3 23.9 MEQ/L; VENOUS TOTAL CO2 27.1 MEQ/L (24.0-28.0); WHITE BLOOD COUNT 4.7 10^3/uL (4.0-10.0)
[2018-12-26] MEDS ORDERED: NS 1,000 ML IV ONE ×2 (20:45→22:00)
[2018-12-26 20:46] LABS: PLATELET COUNT, AUTOMATED 75 10^3/uL (150-450)
[2018-12-26 20:54] LABS: INR 1.23; PROTHROMBIN TIME 15.7 SECONDS (12.1-14.4)
[2018-12-26 21:06] LABS: HEMOGLOBIN A1c 10.2 %
[2018-12-26 21:39] LABS: ACETONE/KETONE 1.15 MG/DL (<2.81); ALBUMIN 2.6 GM/DL (3.2-5.2); ALT/SGPT 32 U/L (12-78); BILIRUBIN,DIRECT 0.2 MG/DL (0.0-0.2); BILIRUBIN,TOTAL 0.5 MG/DL (0.2-1.0); BLOOD UREA NITROGEN 28 MG/DL (7-18); CALCIUM LEVEL 7.9 MG/DL (8.8-10.2); CARBON DIOXIDE LEVEL 27 MEQ/L (21-32); CHLORIDE LEVEL 99 MEQ/L (98-107); CREATININE FOR GFR 1.35 MG/DL (0.55-1.30); GLUCOSE, FASTING 601 MG/DL (70-100); POTASSIUM SERUM 4.3 MEQ/L (3.5-5.1); SODIUM LEVEL 134 MEQ/L (136-145); TOTAL PROTEIN 6.5 GM/DL (6.4-8.2)
[2018-12-26] MEDS ORDERED: HumuLIN R (REGULAR) INSULIN (NovoLIN R) **100U/ML** PER UNIT SC ONE (22:00)
[2018-12-26] MEDS ORDERED: KETOROLAC 30 MG/ML VIAL (J1885) IV ONE (23:15)
[2018-12-26] MEDS ORDERED: BACITAB PO (23:47)
[2018-12-26 23:57] LABS: OSMOLALITY SERUM 314 MOSM/KG (280-301)
[2018-12-27] MEDS ORDERED: GLUCAGON FOR INJ 1 MG VIAL (J1610) SC PRN (00:15)
[2018-12-27] MEDS ORDERED: GLUCOSE 4 GM CHEW TABLET PO PRN (00:15)
[2018-12-27] MEDS ORDERED: DEXTROSE 50% 50 ML SYRINGE IV PRN (00:15)
[2018-12-27 00:33] LABS: CK-MB VALUE MASS < 1.0 NG/ML (<3.6); CPK CREATINE PHOSPHOKINASE 31 U/L (26-192); MB/CK RELATIVE INDEX 3.23 (< OR =4); TROPONIN I < 0.02 NG/ML (< 0.10)
--- NOTE | 2018-12-27 00:37 | REP ---
Clinical: Hyperglycemia . Comparison: 06/28/2018 . Findings: The mediastinum and cardiac silhouette are stable and within normal limits for portable technique. The lung sweet . Demonstrate chronic-appearing interstitial changes with possible right middle lobe opacity and right basilar atelectasis. No definite effusion. Skeletal structures are intact. Impression: Cannot exclude right lower lobe atelectasis and possible right middle lobe opacity. Chest CT is recommended for further investigation. Electronically Signed by Pk Hansen MD 12/27/2018 12:29 A
[2018-12-27] MEDS: HumaLOG INSULIN (NovoLOG) PER UNIT SC SCH ×6 (01:23→23:26)
--- NOTE | 2018-12-27 01:44 | HPEPDOC ---
[facility] Medical History & Physical Date of Admission December 27, 2018 Primary Care Physician: ABI MATHEW MD Attending Physician: HYUN MILNER MD History and Physical CHIEF COMPLAINT: Elevated blood glucose per home monitoring HISTORY OF PRESENT ILLNESS: Patient is a 63-year-old female, past medical history significant for insulin- dependent DMII, end-stage liver disease. 2/2 HICKS, hypertension, hyperlipidemia who presents to the emergency room reporting 3 days of elevated blood glucose levels. Patient also reporting increasingly severe headache without any other neurologic symptoms. In the emergency department, EKG was negative for acute pathology, CBC dem onstrated an H/H of 10.3/31.7 and a platelet count of 75. Chemistries showed BUN/cr of 28/1.35. Hemoglobin A1c 10.2, ammonia of 63. No anion gap, no ketones. POC glucose on arrival was 546. Negative blood gas. Troponins negative. Chest x- ray could not rule out right lower lobe atelectasis. Urine culture pending. Patient was given two 1 L boluses of normal saline, 8 units of insulin and 15 mg of Toradol for her headache. Following the aforementioned treatment, patient's blood glucose dropped to 470. However, her blood pressure remained low in the 90s systolic. Given this, the hospitalist team was contacted for admission and further management. PAST MEDICAL HISTORY: Diabetes mellitus type 2, insulin-dependent. Hypertension Hyperlipidemia Esophageal varices Thrombocytopenia, 2/2. Splenomegaly. Leukopenia End-stage liver disease, 2/2 HICKS Anxiety with recurrent syncope. Depression Recurrent right pleural effusion S/P pleurodesis. Obstructive sleep apnea Vertigo PAST SURGICAL HISTORY: Hernia repair. Hysterectomy. Appendicitis. Lower back nerve block. A talc pleurodesis, 08/30 D&Cs. Negative cardiac catheterization Hysterectomy Bilateral rotator cuff repair. Right knee and left elbow arthroscopy SOCIAL HISTORY: Marital status: Single Resides in: owns home, lives alone, single-story Employment: Retired Tobacco use: Denies smoking history ETOH: Denies alcohol use Illicit drug use: Denies illicit drug use FAMILY HISTORY: Father: , 60, heart disease Mother: , 72, heart disease, CVA, diabetes Siblings: 3 brothers, 1 sister, brother with previous PR and diabetes ALLERGIES: Please see below. REVIEW OF SYSTEMS: CONSTITUTIONAL: Patient reports number of days of ongoing fatigue/malaise. Patient denies subjective fever, chills, night sweats, changes in weight HEENT: Patient is reporting an 8 out of 10 headache, treated with Toradol CARDIOVASCULAR: Patient is denying chest pain at the time of admission, palpit ations RESPIRATORY: Denies any difficulty breathing, pleuritic pain GASTROINTESTINAL: Patient reports 3-4 soft, yet, formed bowel movements per day GENITOURINARY: Denies difficulty with urination including urgency, hesitancy and dysuria SKIN: Patient denies any rashes or new/changing skin lesions MUSCULOSKELETAL: Patient reports generalized malaise, denies specific muscle/joint aches NEUROLOGICAL: Denies any changes in baseline mentation. Denies any focal neurologic deficits PSYCHIATRIC: Patient reports a history of depression, anxiety HEMATOLOGIC/LYMPHATIC: Denies easy bruising HOME MEDICATIONS: Please see below. PHYSICAL EXAMINATION: VITAL SIGNS: Temperature 97.9, pulse 68, respiratory rate 18, blood pressure 93/47 (62), pulse oximetry 97 % on room air. GENERAL APPEARANCE: Patient was found to be lying comfortably in the emergency d epartment, wearing hospital clothing. Patient is arousable, alert and oriented 3. She is able to answer questions appropriately and actively participate her care. HEENT: Normocephalic, atraumatic, EOMI, poor oral hygiene, trachea midline CARDIOVASCULAR: Regular rate and rhythm, normal S1 and S2 no murmurs appreciated LUNGS: Patient does have bibasilar crackles, no wheezing, good air movement ABDOMEN: Soft, nontender, nondistended, no masses palpated, no fluid wave EXTREMITIES: No lower extremity edema/swelling, no calf tenderness bilaterally NEUROLOGICAL: Alert and oriented 3, no focal neurologic deficit, no aphasia, no facial droop PSYCHIATRIC: Mood and affect are appropriate LABORATORY DATA: See below. IMAGING: Chest x-ray (12/26/18): Cannot exclude right lower lobe atelectasis and possible right middle lobe opacity. Chest CT is recommended for further investigation MICROBIOLOGY: Please see below. ASSESSMENT: Patient is a 63-year-old female, past medical history significant for HICKS, insulin-dependent diabetes, hypertension, hyperlipidemia, who presented to emergency department with a chief complaint of 3 days of hyperglycemia and ongoing headache. Emergency department, DKA, was ruled out, patient's elevated blood glucose was treated with insulin and fluids. Hospital seems contacted with the patient for further management and evaluation. . PLAN: Hyperglycemia Patient received 8 units of insulin emergency department with a noted improvemen t in her blood sugar. Orders placed for fasting glucose checks every 4 hours with sliding scale insu rohith. Patient does not demonstrate an anion gap, ketones, or metabolic acidosis. She did receive two 1 L boluses Hypotension Hold patient's home hypertension medications Continue to monitor for improvement Right lower lobe atelectasis Consider chest CT in the morning for further investigation and clarification of chest x-ray findings Patient does not have a white count or fever making focal consolidation less likely Headache, bilateral Patient received Toradol 10 mg IV once all emergency department with good relief Patient reports being unable to utilize Tylenol due to her HICKS DVT prophylaxis: Collins's and sequentials Vital Signs Vital Signs Date Time Temp Pulse Resp B/P (MAP) Pulse Ox O2 Delivery O2 Flow Rate FiO2 12/27/18 00:05 66 93/47 (62) 97 12/26/18 20:09 97.9 18 Room Air Laboratory Data Labs 24H Laboratory Tests 2 12/26/18 20:30: Immature Granulocyte % (Auto) 0.2, White Blood Count 4.7, Red Blood Count 3.24L, Hemoglobin 10.3L, Hematocrit 31.7L, Mean Corpuscular Volume 97.8H, Mean Corpuscular Hemoglobin 31.8, Mean Corpuscular Hemoglobin Concent 32.5, Red Cell Distribution Width 12.6, Platelet Count 75L, Neutrophils (%) (Auto) 70.7H, Lymphocytes (%) (Auto) 15.4L, Monocytes (%) (Auto) 9.3H, Eosinophils (%) (Auto) 3.6H, Basophils (%) (Auto) 0.8, Neutrophils # (Auto) 3.4, Lymphocytes # (Auto) 0.7L, Monocytes # (Auto) 0.4, Eosinophils # (Auto) 0.2, Basophils # (Auto) 0.0, Nucleated Red Blood Cells % (auto) 0.0, Immature Platelet Fraction 7.9, Prothrombin Time 15.7H, Prothromb Time International Ratio 1.23, Activated Partial Thromboplast Time 27.0, Blood Gas Bicarbonate Standard 23.9, Venous Blood pH 7.358, Venous Blood Partial Pressure CO2 46.7, Venous Blood Partial Pressure O2 41.4, Venous Blood Total Carbon Dioxide 27.1, Venous Blood HCO3 25.7, Venous Blood Oxygen Saturation 70.9, Venous Blood Base Excess -0.1, Anion Gap 8, Glomerular Filtration Rate 42.0L, Estimated Mean Plasma Glucose 246H, Hemoglobin A1c 10.2, Osmolality 314H, Calcium Level 7.9L, Aspartate Amino Transf (AST/SGOT) 21, Alanine Aminotransferase (ALT/SGPT) 32, Alkaline Phosphatase 176H, Total Bilirubin 0.5, Direct Bilirubin 0.2, Ammonia 63H, Total Creatine Kinase 31, Creatine Kinase MB < 1.0, Creatine Kinase MB Relative Index 3.23, Troponin I < 0.02, Total Protein 6.5, Albumin 2.6L, Albumin/Globulin Ratio 0.67L, B-Hydroxybutyrate 1.15 12/26/18 21:44: Bedside Glucose (Misc Panel) 546*H 12/26/18 22:58: Bedside Glucose (Misc Panel) 550*H 12/26/18 23:30: Urine Color STRAW, Urine Appearance CLEAR, Urine pH 6.0, Urine Specific [place] 1.020, Urine Protein NEGATIVE, Urine Glucose (UA) 3+H, Urine Ketones NEGATIVE, Urine Blood 1+H, Urine Nitrite NEGATIVE, Urine Bilirubin NEGATIVE, Urine U robilinogen 0.2, Urine Leukocyte Esterase TRACEH, Urine WBC (Auto) 8H, Urine RBC (Auto) 1, Urine Hyaline Casts (Auto) 0, Urine Bacteria (Auto) NEGATIVE, Urine Squamous Epithelial Cells 1, Urine Sperm (Auto) 12/26/18 23:53: Bedside Glucose (Misc Panel) 470H CBC/BMP Laboratory Tests 12/26/18 20:30 Red Blood Count 3.24 L, Mean Corpuscular Volume 97.8 H, Mean Corpuscular Hemoglobin 31.8, Mean Corpuscular Hemoglobin Concent 32.5, Red Cell Distribution Width 12.6, Neutrophils (%) (Auto) 70.7 H, Lymphocytes (%) (Auto) 15.4 L, Monocytes (%) (Auto) 9.3 H, Eosinophils (%) (Auto) 3.6 H, Basophils (%) (Auto) 0.8, Neutrophils # (Auto) 3.4, Lymphocytes # (Auto) 0.7 L, Monocytes # (Auto) 0.4, Eosinophils # (Auto) 0.2, Basophils # (Auto) 0.0 Microbiology Microbiology 12/26/18 Urine Culture, Received Pending Home Medications Scheduled Aspirin (Aspirin EC) 81 Mg Tabec, 81 MG PO DAILY Calcium Carbonate/Vitamin D3 (Calcium 500-Vit D3 600 Tablet) 1 Tab Tab, 1 TAB PO BID Escitalopram Oxalate (Escitalopram Oxalate) 20 Mg Tab, 20 MG PO DAILY Esomeprazole Magnesium (Nexium) 40 Mg Cap, 40 MG PO DAILY Ferrous Sulfate (Ferrous Sulfate) 325 Mg Tab, 325 MG PO BID Furosemide (Lasix) 40 Mg Tab, 40 MG PO BID TAKES WITH 20MG TABLET, TOTAL OF 60MG BID Furosemide (Lasix) 20 Mg Tab, 20 MG PO BID TAKES WITH 40MG TABLET , TOTAL 60MG BID Insulin Glargine (Lantus) 100 Unit/Ml Inj, 90 UNIT SC BID Insulin Human Lispro (Novolog) 100 U/Ml Inj, 1 DOSE SC ACHS PER SLIDING SCALE L.acidoph/L.bulg/B.bif/S.therm (Bacid Caplet) 1 Each Tablet, 1 TAB PO DAILY Meclizine HCl (Meclizine HCl) 25 Mg Tab, 25 MG PO BID Nadolol (Nadolol) 20 Mg Tab, 40 MG PO DAILY Spironolactone (Spironolactone) 100 Mg Tab, 100 MG PO BID Allergies Coded Allergies: TAPE (Verified Allergy, Mild, 08/05/17) acetaminophen (Verified Adverse Reaction, Intermediate, LIVER PROBLEMS, 12/26/18) candesartan (Verified Adverse Reaction, Intermediate, CHEST PAIN, 12/26/18) hydrochlorothiazide (Verified Adverse Reaction, Intermediate, CHEST PAIN, 12/26/18) ibuprofen (Verified Adverse Reaction, Intermediate, LIVER PROBLEMS, 12/26/18) A-FIB/CHADSVASC A-FIB History Current/History of A-Fib/PAF?: No GME ATTESTATION GME ATTESTATION My faculty preceptor for this patient encounter was physically present during the encounter and was fully available. All aspects of the patient interview, examination, medical decision making process, and medical care plan development were reviewed and approved by the faculty preceptor. The faculty preceptor is aware and concurs with the plan as stated in the body of this note and will attest to such by his/her cosignature. RADHA JAIN DO December 27, 2018 01:44
[2018-12-27 02:14] VITALS: BP 116/56
[2018-12-27 06:00] VITALS: BP 125/61
--- NOTE | 2018-12-27 08:17 | ECGEPIP ---
Stationary ECG Study [facility] - ED Test Date: 2018-12-27 Pat Name: SAROJ JOHNSON Department: Room: [place] [address] Gender: F Associate Team Physician: preston : [id number] Requested By: SNEHAL Guzmán Order Number: [id number] Reading MD: Jay Flores Measurements Intervals [place] Rate: 61 P: 51 DC: 147 QRS: 11 QRSD: 95 T: 59 QT: 439 QTc: 442 Interpretive Statements SINUS RHYTHM SIMILAR TO 06/28/18 Electronically Signed On 12-27-2018 8:17:31 EDT by Jay Flores
[2018-12-27] MEDS ORDERED: FUROSEMIDE 40 MG TAB PO SCH (09:00)
[2018-12-27] MEDS: FUROSEMIDE 20 MG TAB PO SCH ×2 (09:00→23:24)
[2018-12-27] MEDS ORDERED: LEVEMIR (INSULIN DETEMIR) 1 UNITS/0.01ML SC SCH ×2 (09:00→21:00)
[2018-12-27] MEDS: PANTOPRAZOLE 40MG TAB (PROTONIX) PO SCH (09:02)
[2018-12-27] MEDS: ASPIRIN 81 MG ENTERIC TAB PO SCH (09:02)
[2018-12-27] MEDS: FERROUS SULFATE 325MG TAB PO SCH ×2 (09:02→23:24)
[2018-12-27] MEDS: ESCITALOPRAM OXALATE 10 MG TAB (LEXAPRO) PO SCH (09:03)
[2018-12-27] MEDS: LACTOBACILLUS ACIDOPHILUS CAP (BACID) PO SCH (09:03)
[2018-12-27 09:05] VITALS: BP 108/55
[2018-12-27] MEDS: SPIRONOLACTONE 50 MG TAB PO SCH ×2 (09:25→23:25)
[2018-12-27 10:12] LABS: BASO % 0.9 % (0.0-1.0); EOS # 0.2 10^3/uL (0.0-0.50); EOS % 3.5 % (0.0-3.0); HEMATOCRIT 28.6 % (36.0-47.0); HEMOGLOBIN 9.3 g/dl (12.0-15.5); LYMPH % 23.3 % (24.0-44.0); MEAN CORPUSCULAR HEMOGLOBIN 30.9 pg (27.0-33.0); MEAN CORPUSCULAR HGB CONC 32.5 g/dl (32.0-36.5); MONO # 0.3 10^3/uL (0.0-0.8); MONO % 7.5 % (0.0-5.0); NEUTROPHILS # 2.8 10^3/uL (1.8-7.7); NEUTROPHILS % 64.6 % (36.0-66.0); RED BLOOD COUNT 3.01 10^6/uL (4.00-5.40); WHITE BLOOD COUNT 4.3 10^3/uL (4.0-10.0)
[2018-12-27 10:14] LABS: CALCIUM LEVEL 7.8 MG/DL (8.8-10.2); CREATININE FOR GFR 1.15 MG/DL (0.55-1.30); GLOMERULAR FILTRATION RATE 50.6 (>45); POTASSIUM SERUM 3.4 MEQ/L (3.5-5.1)
[2018-12-27 10:15] LABS: PLATELET COUNT, AUTOMATED 76 10^3/uL (150-450)
--- NOTE | 2018-12-27 12:44 | IPNPDOC ---
Subjective Date Seen The patient was seen on 12/27/18. Subjective Chief Complaint/HPI Sugars better controlled this am. blood pressure also better. Continues to have headache but a little better than yesterday. Feels more distended today. No fever or chills, no chest pain or SOB. No abdominal pain, nausea or vomiting. Says has 2 to 3 bowel movements daily. Objective Physical Examination General Exam: Positive: Alert, Cooperative, No Acute Distress Eye Exam: Positive: PERRLA, Conjunctiva & lids normal, EOMI; Negative: Sclera icteric ENT Exam: Positive: Atraumatic, Mucous membr. moist/pink, Pharynx Normal Neck Exam: Positive: Supple; Negative: JVD, thyromegaly Chest Exam: Positive: Clear to auscultation, Normal air movement, Diminished (at the bases) Heart Exam: Positive: Rate Normal, Regular Rhythm, Normal S1, Normal S2; Negative: Murmurs, Rubs Abdomen Exam: Positive: Normal bowel sounds, Soft, Other (ascites) Extremity Exam: Negative: Clubbing, Cyanosis, Edema Skin Exam: Positive: Nl turgor and temperature; Negative: Rash, Breakdown Neuro Exam: Positive: Normal Speech Psych Exam: Positive: Memory Intact, Oriented x 3 Assessment /Plan Assessment Patient is a 63-year-old female, past medical history significant for insulin- dependent DMII, End stage liver disease 2/2 HICKS, hypertension, hyperlipidemia O SA, Vertigo, Recurrent pleural effusion s/p talc pleurodesis, Morbid obesity, Anxiety and depression, H/o recurrent syncopal episodes who presents to the emergency room reporting 3 days of elevated blood glucose levels. Patient also reporting increasingly severe headache without any other neurological symptoms. after treatment in the ED patient's blood glucose dropped to 470. However, her blood pressure remained low in the 90s systolic. Given this, the hospitalist team was contacted for admission and further management. Patient was admitted for Hyperglycemia and persistent hypotension. Hyperglycemia Continue Patient on levemir BID and Lispro Checked patient's home blood glucose monitor readings for the past 2 months. It is mostly in 300s and 400s. Her A1c is 10.2 Hypotension Patient possibly has chronic low normal Bps or hypotension because of advanced Cirrhosis. Which may be aggravated by being on diuretics , nadolol and uncontrolled sugars which may have been causing osmotic diuresis and making her intravascularly dehydrated. Hold patient's home hypertension medications Continue to monitor for improvement Hyperammonemia due to END stage liver disease. However patient is not encephlopathic so will not treat. End stage liver disease with thrombocytopenia, ascites pateint is uncomfortable with the increased abdominal swelling. will schedule for tapping will give 2 albumins with it. will restart Nadolol and lasix when Bp better Syncopal and presyncopal episodes will check orthostatics most probably vasovagal in nature. Headache patient has history of Migraines she feels that she is having one of her attacks its better. DVT TEDS and SCDs Plan/VTE VTE Prophylaxis Ordered?: Yes VS, I&O, 24H, Fishbone Vital Signs/I&O Vital Signs Date Time Temp Pulse Resp B/P (MAP) Pulse Ox O2 Delivery O2 Flow Rate FiO2 12/27/18 09:05 65 108/55 (72) 12/27/18 06:00 97.6 18 95 12/27/18 01:24 Room Air I&O- Last 24 Hours up to 6 AM 12/27/18 06:00 Intake Total 120 ml Balance 120 ml Laboratory Data 24H LABS Laboratory Tests 2 12/26/18 20:30: Immature Granulocyte % (Auto) 0.2, White Blood Count 4.7, Red Blood Count 3.24L, Hemoglobin 10.3L, Hematocrit 31.7L, Mean Corpuscular Volume 97.8H, Mean Corpuscular Hemoglobin 31.8, Mean Corpuscular Hemoglobin Concent 32.5, Red Cell Distribution Width 12.6, Platelet Count 75L, Neutrophils (%) (Auto) 70.7H, Lymphocytes (%) (Auto) 15.4L, Monocytes (%) (Auto) 9.3H, Eosinophils (%) (Auto) 3.6H, Basophils (%) (Auto) 0.8, Neutrophils # (Auto) 3.4, Lymphocytes # (Auto) 0.7L, Monocytes # (Auto) 0.4, Eosinophils # (Auto) 0.2, Basophils # (Auto) 0.0, Nucleated Red Blood Cells % (auto) 0.0, Immature Platelet Fraction 7.9, Prot hrombin Time 15.7H, Prothromb Time International Ratio 1.23, Activated Partial Thromboplast Time 27.0, Blood Gas Bicarbonate Standard 23.9, Venous Blood pH 7.358, Venous Blood Partial Pressure CO2 46.7, Venous Blood Partial Pressure O2 41.4, Venous Blood Total Carbon Dioxide 27.1, Venous Blood HCO3 25.7, Venous Blood Oxygen Saturation 70.9, Venous Blood Base Excess -0.1, Anion Gap 8, Glomerular Filtration Rate 42.0L, Estimated Mean Plasma Glucose 246H, Hemoglobin A1c 10.2, Osmolality 314H, Calcium Level 7.9L, Aspartate Amino Transf (AST/SGOT) 21, Alanine Aminotransferase (ALT/SGPT) 32, Alkaline Phosphatase 176H, Total Bilirubin 0.5, Direct Bilirubin 0.2, Ammonia 63H, Total Creatine Kinase 31, Creatine Kinase MB < 1.0, Creatine Kinase MB Relative Index 3.23, Troponin I < 0.02, Total Protein 6.5, Albumin 2.6L, Albumin/Globulin Ratio 0.67L, B- Hydroxybutyrate 1.15 12/26/18 21:44: Bedside Glucose (Misc Panel) 546*H 12/26/18 22:58: Bedside Glucose (Misc Panel) 550*H 12/26/18 23:30: Urine Color STRAW, Urine Appearance CLEAR, Urine pH 6.0, Urine Specific [place] 1.020, Urine Protein NEGATIVE, Urine Glucose (UA) 3+H, Urine Ketones NEGATIVE, Urine Blood 1+H, Urine Nitrite NEGATIVE, Urine Bilirubin NEGATIVE, Urine Urobilinogen 0.2, Urine Leukocyte Esterase TRACEH, Urine WBC (Auto) 8H, Urine RBC (Auto) 1, Urine Hyaline Casts (Auto) 0, Urine Bacteria (Auto) NEGATIVE, Urine Squamous Epithelial Cells 1, Urine Sperm (Auto) 12/26/18 23:53: Bedside Glucose (Misc Panel) 470H 12/27/18 01:03: Bedside Glucose (Misc Panel) 442H 12/27/18 04:00: Bedside Glucose (Misc Panel) 322H 12/27/18 05:35: Bedside Glucose (Misc Panel) 286H 12/27/18 05:53: Immature Granulocyte % (Auto) 0.2, White Blood Count 4.3, Red Blood Count 3.01L, Hemoglobin 9.3L, Hematocrit 28.6L, Mean Corpuscular Volume 95.0, Mean Corpuscular Hemoglobin 30.9, Mean Corpuscular Hemoglobin Concent 32.5, Red Cell Distribution Width 12.8, Platelet Count 76L, Neutrophils (%) (Auto) 64.6, Lymphocytes (%) (Auto) 23.3L, Monocytes (%) (Auto) 7.5H, Eosinophils (%) (Auto) 3.5H, Basophils (%) (Auto) 0.9, Neutrophils # (Auto) 2.8, Lymphocytes # (Auto) 1.0L, Monocytes # (Auto) 0.3, Eosinophils # (Auto) 0.2, Basophils # (Auto) 0.0, Nucleated Red Blood Cells % (auto) 0.0, Anion Gap 6L, Glomerular Filtration Rate 50.6, Blood Urea Nitrogen 24H, Creatinine 1.15, Sodium Level 138, Potassium Level 3.4#L, Chloride Level 108H, Carbon Dioxide Level 24, Calcium Level 7.8L, Ammonia 84H 12/27/18 08:17: Bedside Glucose (Misc Panel) 227H 12/27/18 11:41: Bedside Glucose (Misc Panel) 354H CBC/BMP Laboratory Tests 12/26/18 20:30 Red Blood Count 3.24 L, Mean Corpuscular Volume 97.8 H, Mean Corpuscular Hemoglobin 31.8, Mean Corpuscular Hemoglobin Concent 32.5, Red Cell Distribution Width 12.6, Neutrophils (%) (Auto) 70.7 H, Lymphocytes (%) (Auto) 15.4 L, Monocytes (%) (Auto) 9.3 H, Eosinophils (%) (Auto) 3.6 H, Basophils (%) (Auto) 0.8, Neutrophils # (Auto) 3.4, Lymphocytes # (Auto) 0.7 L, Monocytes # (Auto) 0.4, Eosinophils # (Auto) 0.2, Basophils # (Auto) 0.0 12/27/18 05:53 Red Blood Count 3.01 L, Mean Corpuscular Volume 95.0, Mean Corpuscular Hemoglobin 30.9, Mean Corpuscular Hemoglobin Concent 32.5, Red Cell Distribution Width 12.8, Neutrophils (%) (Auto) 64.6, Lymphocytes (%) (Auto) 23.3 L, Monocytes (%) (Auto) 7.5 H, Eosinophils (%) (Auto) 3.5 H, Basophils (%) (Auto) 0.9, Neutrophils # (Auto) 2.8, Lymphocytes # (Auto) 1.0 L, Monocytes # (Auto) 0.3, Eosinophils # (Auto) 0.2, Basophils # (Auto) 0.0, Calcium Level 7.8 L Microbiology Microbiology 12/26/18 Urine Culture, Received Pending RAUDEL RUDOLPH MD December 27, 2018 12:44
--- NOTE | 2018-12-27 13:24 | REP ---
Four-quadrant abdominal survey: History: Ascites check, possible paracentesis. Four-quadrant sonography confirms the presence of mild ascites. There is a moderate amount of fluid in the left lower quadrant and trace to mild amount in the other four quadrants. Paracentesis can be performed if desired. Impression: Mild diffuse ascites. Electronically Signed by Lonny Fu MD 12/27/2018 02:03 P
[2018-12-27] MEDS: ANALGESIC BALM CRM 120 GM TOP PRN (13:50)
[2018-12-27 14:00] VITALS: BP 104/60
[2018-12-27 16:00] VITALS: BP_SYST 113; BP_SYST 120; BP_SYST 129; BP_DIAS 54; BP_DIAS 58; BP_DIAS 91
[2018-12-27 22:00] VITALS: BP 111/54
[2018-12-28] MEDS ORDERED: POTASSIUM CHLORIDE 10 MEQ SR TABLET PO ONE (00:45)
[2018-12-28] MEDS ORDERED: KETOROLAC 30 MG/ML VIAL (J1885) IV ONE (03:00)
[2018-12-28 06:00] VITALS: BP_SYST 119; BP_SYST 123; BP_SYST 98; BP_DIAS 50; BP_DIAS 57; BP_DIAS 65
[2018-12-28 06:22] LABS: HEMATOCRIT 30.4 % (36.0-47.0); HEMOGLOBIN 9.8 g/dl (12.0-15.5); MEAN CORPUSCULAR HEMOGLOBIN 31.7 pg (27.0-33.0); MEAN CORPUSCULAR HGB CONC 32.2 g/dl (32.0-36.5); MEAN CORPUSCULAR VOLUME 98.4 fl (80.0-96.0); RED BLOOD COUNT 3.09 10^6/uL (4.00-5.40); WHITE BLOOD COUNT 2.8 10^3/uL (4.0-10.0)
[2018-12-28 06:23] LABS: PLATELET COUNT, AUTOMATED 57 10^3/uL (150-450)
--- NOTE | 2018-12-28 06:48 | CR ---
DATE OF CONSULTATION: 12/27/2018 REFERRING PHYSICIAN: Dr. Rika Chauhan REASON FOR CONSULTATION: Seizure-like spells. 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 I had seen her spell with her daughter during that admission and she had a spell during EEG without any EEG correlates. At that time she had spells, looking like generalized seizures with shaking, but ability to follow commands during shaking without incontinence and tongue biting. The patient states that she came to [facility] this time due to high blood sugar. The patient states that she had episode of passing out a couple of months ago at office of her independent sales representative. There are checking her vital signs for that visit and she passed out while sitting in the chair. There was no shaking in the episode. She felt lightheadedness and tunnel vision. She passed out for couple of minutes. She was told by her independent sales representative that they lost her pulse a couple of times. She does not know if her blood pressure or blood sugar were low at that time. She was sent to [facility] and was observed in the emergency department for 12 hours and discharged home. The patient states that during her pseudoseizures she has body shaking for 3-4 minutes. She also has staring spells. She had a couple of these spells during this admission. They can be brought on by bright lights. Staring episodes can last for a couple of minutes. They happened 3 or 4 times a year, more around when her blood sugar is high. She has off-and-on headaches. She denies any neck pain, back pain, dysphagia, dysarthria, diplopia, urinary incontinence, falls. PAST MEDICAL HISTORY: Pseudoseizures, type 2 diabetes, hypertension, dyslipidemia, esophageal varices, thrombocytopenia, splenomegaly, leukopenia, end-stage liver disease, anxiety with recurrent syncope, depression, history of pleural effusion, obstructive sleep apnea, vertigo, hernia repair, hysterectomy, appendectomy, negative cardiac catheterization, hysterectomy, bilateral rotator cuff repair. SOCIAL HISTORY: She lives alone. She denies smoking, alcohol or illicit drugs. FAMILY HISTORY: Parents had heart disease. Father had stroke and diabetes. REVIEW OF SYSTEMS: All systems were reviewed and found to be noncontributory except as mentioned as present illness. PHYSICAL EXAMINATION: Pulse 61, blood pressure 113//54, 97% saturation on room air, respiratory 18. Heart: Regular rate rhythm. Lungs: Clear to auscultation. Abdomen: Soft, nontender, nondistended. No pedal edema. No musculoskeletal abnormalities. No rash. No signs of meningeal irritation. No tremor or dysmetria. The patient is awake, alert, oriented to place, person and time. Normal speech comprehension and repetition. Extraocular muscles are intact. No facial weakness. Tongue and uvula are midline. 5/5 strength in all upper extremities. Deep tendon flexes 2+ throughout. Normal sensation. Gait was not tested. DIAGNOSTIC STUDIES: CT scan of head showed small vessel ischemic disease of brain and mild atrophy. CURRENT MEDICATIONS: Aspirin 81 mg by mouth daily, Lexapro 20 mg by mouth daily, Nexium 40 mg by mouth daily, ferrous sulfate 325 mg by mouth twice a day, Lasix 40 mg by mouth twice a day, and 20 mg by mouth twice a day, insulin Lantus 74 units subcutaneous twice a day, Nurolon 20 mg by mouth daily, spironolactone 100 mg by mouth twice a day, meclizine 25 mg by mouth twice a day. ALLERGIES: TYLENOL, CANDESARTAN, HYDROCHLOROTHIAZIDE, IBUPROFEN, and ADHESIVE TAPE. ASSESSMENT: 1. Seizure-like spells. 2. History of pseudoseizures diagnosed in July 2017 and her record can be reviewed from that admission. 3. History of anxiety with syncopal episodes which can represent a similar phenomenon as described above. 4. 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 PLAN: 1. We can repeat EEG although my index of suspicion is very low for any epileptic seizures. 2. Physical and occupational therapy. Continue appropriate management of her diabetes and cirrhosis. JOSELUIS
[2018-12-28 06:58] LABS: ALBUMIN 2.5 GM/DL (3.2-5.2); BILIRUBIN,TOTAL 0.4 MG/DL (0.2-1.0); CALCIUM LEVEL 8.7 MG/DL (8.8-10.2); CREATININE FOR GFR 1.11 MG/DL (0.55-1.30); GLOMERULAR FILTRATION RATE 52.7 (>45); POTASSIUM SERUM 4.1 MEQ/L (3.5-5.1)
[2018-12-28] MEDS: FUROSEMIDE 40 MG TAB PO SCH ×2 (09:00→16:39)
[2018-12-28] MEDS: LEVEMIR (INSULIN DETEMIR) 1 UNITS/0.01ML SC SCH ×2 (09:26→21:54)
[2018-12-28] MEDS: LACTOBACILLUS ACIDOPHILUS CAP (BACID) PO SCH (09:27)
[2018-12-28] MEDS: ASPIRIN 81 MG ENTERIC TAB PO SCH (09:27)
[2018-12-28] MEDS: PANTOPRAZOLE 40MG TAB (PROTONIX) PO SCH (09:27)
[2018-12-28] MEDS: ESCITALOPRAM OXALATE 10 MG TAB (LEXAPRO) PO SCH (09:27)
[2018-12-28] MEDS: HumaLOG INSULIN (NovoLOG) PER UNIT SC SCH ×4 (09:27→21:55)
[2018-12-28] MEDS: FERROUS SULFATE 325MG TAB PO SCH ×2 (09:28→21:52)
[2018-12-28] MEDS: FUROSEMIDE 20 MG TAB PO SCH ×2 (09:28→16:39)
[2018-12-28] MEDS: SPIRONOLACTONE 50 MG TAB PO SCH ×2 (09:34→21:53)
[2018-12-28] MEDS: PROPRANOLOL 10 MG TAB PO SCH ×3 (12:24→21:52)
[2018-12-28 14:00] VITALS: BP 116/56
[2018-12-28 16:26] VITALS: BP 131/68
--- NOTE | 2018-12-28 17:01 | IPNPDOC ---
Subjective Date Seen The patient was seen on 12/28/18. Subjective Chief Complaint/HPI Continues to have difficulty in ambulation and gait instability. Working with PT, Bp low normal today without any symptoms. Objective Physical Examination General Exam: Positive: Alert, Cooperative, No Acute Distress Eye Exam: Positive: PERRLA, Conjunctiva & lids normal, EOMI; Negative: Sclera icteric ENT Exam: Positive: Atraumatic, Mucous membr. moist/pink, Pharynx Normal Neck Exam: Positive: Supple; Negative: JVD, thyromegaly Chest Exam: Positive: Clear to auscultation, Normal air movement, Diminished (at the bases) Heart Exam: Positive: Rate Normal, Regular Rhythm, Normal S1, Normal S2; Negative: Murmurs, Rubs Abdomen Exam: Positive: Normal bowel sounds, Soft, Other (ascites) Extremity Exam: Negative: Clubbing, Cyanosis, Edema Skin Exam: Positive: Nl turgor and temperature; Negative: Rash, Breakdown Neuro Exam: Positive: Normal Speech Psych Exam: Positive: Memory Intact, Oriented x 3 Assessment /Plan Assessment Patient is a 63-year-old female, past medical history significant for insulin- dependent DMII, End stage liver disease 2/2 HICKS, hypertension, hyperlipidemia DARIA, Vertigo, Recurrent pleural effusion s/p talc pleurodesis, Morbid obesity, Anxiety and depression, H/o recurrent syncopal episodes who presents to the emergency room reporting 3 days of elevated blood glucose levels. Patient also reporting increasingly severe headache without any other neurological symptoms. after treatment in the ED patient's blood glucose dropped to 470. However, her blood pressure remained low in the 90s systolic. Given this, the hospitalist team was contacted for admission and further management. Patient was admitted for Hyperglycemia and persistent hypotension. Syncopal and presyncopal episodes orthostatics are negative. Telemetry no arrhythmias. seen by Neurology Had EEG in the past which was negative for any seizure focus though during the light stimulation during the test had a spell felt to be pseudoseizures /Psychogenic nonepileptic spells vs anxiety with syncopal episode Continue PT Hyperglycemia Continue Patient on levemir BID and Lispro Checked patient's home blood glucose monitor readings for the past 2 months. It is mostly in 300s and 400s. Her A1c is 10.2 Hypotension Patient possibly has chronic low normal Bps or hypotension because of advanced Cirrhosis. Which may be aggravated by being on diuretics , nadolol and uncontrolled sugars which may have been causing osmotic diuresis and making her intravascularly dehydrated. Hold patient's home hypertension medications. will start low dose propanolol. Continue to monitor for improvement Hyperammonemia due to END stage liver disease. However patient is not encephlopathic so will not treat. End stage liver disease with thrombocytopenia, ascites continue lasix with hold parameters and spironolactone. Headache patient has history of Migraines she feels that she is having one of her attacks its better. DVT TEDS and SCDs Plan/VTE VTE Prophylaxis Ordered?: Yes VS, I&O, 24H, Fishbone Vital Signs/I&O Vital Signs Date Time Temp Pulse Resp B/P (MAP) Pulse Ox O2 Delivery O2 Flow Rate FiO2 12/28/18 16:40 63 131/68 12/28/18 14:00 97.0 16 96 12/27/18 01:24 Room Air I&O- Last 24 Hours up to 6 AM 12/28/18 05:59 Intake Total 2160 ml Output Total 900 ml Balance 1260 ml Laboratory Data 24H LABS Laboratory Tests 2 12/27/18 20:10: Bedside Glucose (Misc Panel) 346H 12/28/18 05:40: Nucleated Red Blood Cells % (auto) 0.0, Immature Platelet Fraction 7.4, Anion Gap 6L, Glomerular Filtration Rate 52.7, Blood Urea Nitrogen 22H, Creatinine 1.11, Sodium Level 139, Potassium Level 4.1#, Chloride Level 110H, Carbon Dioxide Level 23, Calcium Level 8.7L, Aspartate Amino Transf (AST/SGOT) 26, Alanine Aminotransferase (ALT/SGPT) 29, Alkaline Phosphatase 150H, Total Bilirubin 0.4, Total Protein 6.0L, Albumin 2.5L, Albumin/Globulin Ratio 0.71L 12/28/18 11:32: Bedside Glucose (Misc Panel) 389H 12/28/18 16:27: Bedside Glucose (Misc Panel) 336H CBC/BMP Laboratory Tests 12/28/18 05:40 Red Blood Count 3.09 L, Mean Corpuscular Volume 98.4 H, Mean Corpuscular Hemoglobin 31.7, Mean Corpuscular Hemoglobin Concent 32.2, Red Cell Distribution Width 12.7, Calcium Level 8.7 L, Aspartate Amino Transf (AST/SGOT) 26, Alanine Aminotransferase (ALT/SGPT) 29, Alkaline Phosphatase 150 H, Total Bilirubin 0.4, Total Protein 6.0 L, Albumin 2.5 L Microbiology Microbiology 12/26/18 Urine Culture - Final, Complete RAY,RAUDEL BURGOS December 28, 2018 17:01
[2018-12-28] MEDS: ANALGESIC BALM CRM 120 GM TOP PRN (21:56)
[2018-12-28 22:00] VITALS: BP 113/53
[2018-12-29 01:14] VITALS: BP 122/71
[2018-12-29] MEDS ORDERED: ALPRAZolam 0.25 MG TAB PO ONE (03:45)
[2018-12-29 06:00] VITALS: BP 114/53
[2018-12-29] MEDS: LEVEMIR (INSULIN DETEMIR) 1 UNITS/0.01ML SC SCH (08:27)
[2018-12-29] MEDS: HumaLOG INSULIN (NovoLOG) PER UNIT SC SCH ×2 (08:27→13:00)
[2018-12-29 09:37] VITALS: BP 92/56
[2018-12-29] MEDS: PANTOPRAZOLE 40MG TAB (PROTONIX) PO SCH (11:23)
[2018-12-29] MEDS: ASPIRIN 81 MG ENTERIC TAB PO SCH (11:23)
[2018-12-29] MEDS: FERROUS SULFATE 325MG TAB PO SCH (11:23)
[2018-12-29] MEDS: FUROSEMIDE 20 MG TAB PO SCH (11:24)
[2018-12-29] MEDS: SPIRONOLACTONE 50 MG TAB PO SCH (11:24)
[2018-12-29] MEDS: ESCITALOPRAM OXALATE 10 MG TAB (LEXAPRO) PO SCH (11:25)
[2018-12-29] MEDS: LACTOBACILLUS ACIDOPHILUS CAP (BACID) PO SCH (11:25)
[2018-12-29] MEDS: FUROSEMIDE 40 MG TAB PO SCH (11:37)
[2018-12-29 11:38] VITALS: BP 110/72
[2018-12-29] MEDS: PROPRANOLOL 10 MG TAB PO SCH (11:38)
[2018-12-29] MEDS ORDERED: INSULADS SC (13:01)
--- NOTE | 2019-01-03 01:20 | DS.PDOC ---
Discharge Summary General Date of Admission December 27, 2018 at 00:08 Date of Discharge 12/29/18 Discharge Summary PROCEDURES PERFORMED DURING STAY: [None]. 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 Cirrhosis of liver with ascitis and thrombocytopenia Hyperammonemia without hepatic encephalopathy Chronic headache possibly migraines Chronic hypotension due to advanced cirrhosis. COMPLICATIONS/CHIEF COMPLAINT: Diabetes Mellitus With Hyperglycemia. HISTORY OF PRESENT ILLNESS: See history and physical HOSPITAL COURSE: Patient is a 63-year-old female, past medical history significant for insulin-dependent DMII, End stage liver disease 2/2 HICKS, hypertension, hyperlipidemia DARIA, Vertigo, Recurrent pleural effusion s/p talc pleurodesis, Morbid obesity, Anxiety and depression, H/o recurrent syncopal episodes who presents to the emergency room reporting 3 days of elevated blood glucose levels. Patient also reporting increasingly severe headache without any other neurological symptoms. after treatment in the ED patient's blood glucose dropped to 470. However, her blood pressure remained low in the 90s systolic. Given this, the hospitalist team was contacted for admission and further management. Patient was admitted for Hyperglycemia and persistent hypotension. Syncopal and presyncopal episodes orthostatics are negative. Telemetry no arrhythmias. seen by Neurology Had EEG in the past which was negative for any seizure focus though during the light stimulation during the test had a spell felt to be pseudoseizures /Psychogenic nonepileptic spells vs anxiety with syncopal episode Continue PT Hyperglycemia Continue Patient on levemir BID and Lispro Long acting dosage of insulin was increased Checked patient's home blood glucose monitor readings for the past 2 months. It is mostly in 300s and 400s. Her A1c is 10.2 Hypotension resolved though continues to have low normal Bps Patient possibly has chronic low normal Bps or hypotension because of advanced Cirrhosis. Which may be aggravated by being on diuretics , nadolol and uncontrolled sugars which may have been causing osmotic diuresis and making her intravascularly dehydrated. will restart nadolol and lasix and spironolactone. Hyperammonemia due to END stage liver disease. However patient is not encephalopathic so will not treat. End stage liver disease with thrombocytopenia, ascites continue lasix with hold parameters and spironolactone. Headache patient has history of Migraines she feels that she is having one of her attacks its better. Morbid obesity with gait instability has been evaluated bad cleared by PT for discharge home. DISCHARGE MEDICATIONS: Please see below. ALLERGIES: Please see below. PHYSICAL EXAMINATION ON DISCHARGE: VITAL SIGNS: Please see below. General Exam: Positive: Alert, Cooperative, No Acute Distress Eye Exam: Positive: PERRLA, Conjunctiva & lids normal, EOMI; Negative: Sclera icteric ENT Exam: Positive: Atraumatic, Mucous membr. moist/pink, Pharynx Normal Neck Exam: Positive: Supple; Negative: JVD, thyromegaly Chest Exam: Positive: Clear to auscultation, Normal air movement, Diminished (at the bases) Heart Exam: Positive: Rate Normal, Regular Rhythm, Normal S1, Normal S2; Negative: Murmurs, Rubs Abdomen Exam: Positive: Normal bowel sounds, Soft, Other (ascites) Extremity Exam: Negative: Clubbing, Cyanosis, Edema Skin Exam: Positive: Nl turgor and temperature; Negative: Rash, Breakdown Neuro Exam: Positive: Normal Speech Psych Exam: Positive: Memory Intact, Oriented x 3 LABORATORY DATA: Please see below. ACTIVITY: [As tolerated]. DIET: Carb consistent diet. DISPOSITION: 01 Home, Self-Care. DISCHARGE INSTRUCTIONS: follow up with PMD in 3 to 5 days DISCHARGE CONDITION: [Stable]. TIME SPENT ON DISCHARGE: 35 minutes. Vital Signs/I&Os Vital Signs Date Time Temp Pulse Resp B/P (MAP) Pulse Ox O2 Delivery O2 Flow Rate FiO2 12/29/18 11:38 84 110/72 12/29/18 09:37 97.1 16 12/29/18 06:00 97 Microbiology Microbiology 12/26/18 Urine Culture - Final, Complete Discharge Medications Scheduled Aspirin (Aspirin EC) 81 Mg Tabec, 81 MG PO DAILY, (Reported) Calcium Carbonate/Vitamin D3 (Calcium 500-Vit D3 600 Tablet) 1 Tab Tab, 1 TAB PO BID, (Reported) Escitalopram Oxalate (Escitalopram Oxalate) 20 Mg Tab, 20 MG PO DAILY, (Reported) Esomeprazole Magnesium (Nexium) 40 Mg Cap, 40 MG PO DAILY, (Reported) Ferrous Sulfate (Ferrous Sulfate) 325 Mg Tab, 325 MG PO BID, (Reported) Furosemide (Lasix) 40 Mg Tab, 40 MG PO BID, (Reported) TAKES WITH 20MG TABLET, TOTAL OF 60MG BID Furosemide (Lasix) 20 Mg Tab, 20 MG PO BID, (Reported) TAKES WITH 40MG TABLET , TOTAL 60MG BID Insulin Glargine (Lantus) 100 Unit/Ml Inj, 90 UNIT SC BID Insulin Human Lispro (Novolog) 100 U/Ml Inj, 1 DOSE SC ACHS, (Reported) PER SLIDING SCALE L.acidoph/L.bulg/B.bif/S.therm (Bacid Caplet) 1 Each Tablet, 1 TAB PO DAILY, (Reported) Meclizine HCl (Meclizine HCl) 25 Mg Tab, 25 MG PO BID, (Reported) Nadolol (Nadolol) 20 Mg Tab, 40 MG PO DAILY, (Reported) Spironolactone (Spironolactone) 100 Mg Tab, 100 MG PO BID, (Reported) Allergies Coded Allergies: TAPE (Verified Allergy, Mild, 08/05/17) acetaminophen (Verified Adverse Reaction, Intermediate, LIVER PROBLEMS, 12/26/18) candesartan (Verified Adverse Reaction, Intermediate, CHEST PAIN, 12/26/18) hydrochlorothiazide (Verified Adverse Reaction, Intermediate, CHEST PAIN, 12/26/18) ibuprofen (Verified Adverse Reaction, Intermediate, LIVER PROBLEMS, 12/26/18) RAUDEL RUDOLPH MD January 03, 2019 01:20
== END 2018-12-29 15:33 | disposition home or self-care (01) ==
LOC: M ED 19:59 → M ED INP 20:01 → UNDOADMOB 12-27 00:08 → M ED INP 12-27 00:08 → M MSPAV 12-27 02:15 → M ED INP 12-27 02:15 → UNDODISOB 12-29 15:33
PROVIDERS: ADMIT Internal Medicine; ATTEND Internal Medicine
DX: E11.65 Type 2 diabetes mellitus with hyperglycemia (principal); R55 Syncope and collapse; E72.20 Disorder of urea cycle metabolism, unspecified; K72.90 Hepatic failure, unspecified without coma; D69.6 Thrombocytopenia, unspecified; I10 Essential (primary) hypertension; G43.909 Migraine, unspecified, not intractable, without status migrainosus; E78.5 Hyperlipidemia, unspecified; I85.00 Esophageal varices without bleeding; R16.1 Splenomegaly, not elsewhere classified; F41.9 Anxiety disorder, unspecified; F32.9 Major depressive disorder, single episode, unspecified; D72.819 Decreased white blood cell count, unspecified; G47.33 Obstructive sleep apnea (adult) (pediatric); R42 Dizziness and giddiness; Z79.4 Long term (current) use of insulin; Z79.82 Long term (current) use of aspirin; Z79.899 Other long term (current) drug therapy; Z88.8 Allergy status to other drugs, medicaments and biological substances
CPT/HCPCS: 36415; 71045; 76705; 80048; 80053; 80076; 81001; 82010; 82140; 82550; 82553; 82803; 83036; 83930; 84484; 85025; 85027; 85049; 85055; 85610; 85730; 87086; 93005; 93041; 96361; 96374; 96376; 97110; 97116; 97161; 97530; 99285; J1885

== ENCOUNTER 2019-01-04 13:16 | Emergency (ER) | payer OTHER ==
[~2019-01-04] VITALS: Ht 154.9 cm; Wt 106.4 kg
[~2019-01-04 13:16] MED LIST changes: +BACITAB PO; -TRAZ-160 PO; +TRAZ-252 PO
[2019-01-04] MEDS ORDERED: NS 1,000 ML IV ONE (13:45)
--- NOTE | 2019-01-04 14:29 | REP ---
Clinical: Diabetic ketoacidosis. Comparison: 12/26/2018. Findings: Mediastinum and cardiac silhouette are within normal limits. Lung sweet demonstrate stable chronic changes. Subtle right lower lobe opacities are again noted uncertain significance. No obvious effusion. No pneumothorax. Skeletal structures intact. Impression: Stable appearance. Subtle opacities in the right base unchanged. Electronically Signed by Pk Hansen MD 01/04/2019 02:21 P
[2019-01-04 14:33] LABS: VENOUS BASE EXCESS -1.1 (-2.0-2.0); VENOUS HCO3 24.5 MEQ/L (23.0-27.0); VENOUS O2 SATURATION 72.6 % (60.0-80.0); VENOUS PARTIAL PRESSURE CO2 44.8 mmHg (38.0-50.0); VENOUS PARTIAL PRESSURE O2 42.4 mmHg (30.0-50.0); VENOUS PH 7.356 UNITS (7.330-7.430); VENOUS STANDARD HCO3 23.1 MEQ/L; VENOUS TOTAL CO2 25.9 MEQ/L (24.0-28.0)
[2019-01-04 14:43] LABS: BASO % 0.7 % (0.0-1.0); EOS # 0.2 10^3/uL (0.0-0.50); HEMATOCRIT 31.4 % (36.0-47.0); HEMOGLOBIN 10.2 g/dl (12.0-15.5); LYMPH # 0.6 10^3/uL (1.5-4.5); LYMPH % 14.1 % (24.0-44.0); MEAN CORPUSCULAR HEMOGLOBIN 31.8 pg (27.0-33.0); MEAN CORPUSCULAR HGB CONC 32.5 g/dl (32.0-36.5); MEAN CORPUSCULAR VOLUME 97.8 fl (80.0-96.0); MONO # 0.5 10^3/uL (0.0-0.8); MONO % 11.4 % (0.0-5.0); NEUTROPHILS % 68.3 % (36.0-66.0); RED BLOOD COUNT 3.21 10^6/uL (4.00-5.40); WHITE BLOOD COUNT 4.4 10^3/uL (4.0-10.0)
[2019-01-04 14:44] LABS: PLATELET COUNT, AUTOMATED 83 10^3/uL (150-450)
[2019-01-04 14:55] LABS: HEMOGLOBIN A1c 9.9 %
[2019-01-04 15:07] LABS: OSMOLALITY SERUM 297 MOSM/KG (280-301)
[2019-01-04 15:15] LABS: ACETONE/KETONE 1.02 MG/DL (<2.81); ALBUMIN 2.6 GM/DL (3.2-5.2); ALT/SGPT 39 U/L (12-78); BILIRUBIN,DIRECT 0.2 MG/DL (0.0-0.2); BILIRUBIN,TOTAL 0.6 MG/DL (0.2-1.0); BLOOD UREA NITROGEN 24 MG/DL (7-18); CALCIUM LEVEL 8.3 MG/DL (8.8-10.2); CARBON DIOXIDE LEVEL 27 MEQ/L (21-32); CHLORIDE LEVEL 104 MEQ/L (98-107); CK-MB VALUE MASS < 1.0 NG/ML (<3.6); CPK CREATINE PHOSPHOKINASE 35 U/L (26-192); CREATININE FOR GFR 1.19 MG/DL (0.55-1.30); GLOMERULAR FILTRATION RATE 48.6 (>45); GLUCOSE, FASTING 175 MG/DL (70-100); LIPASE 298 U/L (73-393); MB/CK RELATIVE INDEX 2.86 (< OR =4); PHOSPHORUS LEVEL 2.5 MG/DL (2.5-4.9); POTASSIUM SERUM 3.9 MEQ/L (3.5-5.1); SODIUM LEVEL 138 MEQ/L (136-145); TOTAL PROTEIN 6.7 GM/DL (6.4-8.2); TROPONIN I < 0.02 NG/ML (< 0.10)
[2019-01-04] MEDS ORDERED: NS 500 ML IV ONE (17:45)
[2019-01-04 18:19] VITALS: O2SAT 83
[2019-01-04 19:27] VITALS: BP 99/51
--- NOTE | 2019-01-05 19:20 | ECGEPIP ---
[facility] - ED Test Date: 2019-01-04 Pat Name: SAROJ JOHNSON Department: Room: - Gender: Female District Associate Judge: marcia : 1955 Requested By: SNEHAL Guzmán Order Number: [id number] Reading MD: Ana Hernandez Measurements Intervals [place] Rate: 60 P: 16 [place]: 125 QRS: QRSD: 97 T: 30 QT: 447 QTc: 449 Interpretive Statements SINUS RHYTHM LEFTWARD AXIS NONSPECIIC ST T WAVE CHANGES DELAYED R WAVE PROGRESSION 12/27/17 SIMILAR Electronically Signed on 01-05-2019 19:19:28 EDT by Ana Hernandez
== END 2019-01-04 19:30 | disposition home or self-care (01) ==
LOC: EDBD 13:16 → M ED 13:16
DX: E11.65 Type 2 diabetes mellitus with hyperglycemia (principal); I10 Essential (primary) hypertension; E78.5 Hyperlipidemia, unspecified; G47.33 Obstructive sleep apnea (adult) (pediatric); Z79.899 Other long term (current) drug therapy; Z79.82 Long term (current) use of aspirin; Z79.4 Long term (current) use of insulin; Z88.8 Allergy status to other drugs, medicaments and biological substances; Z91.048 Other nonmedicinal substance allergy status

== ENCOUNTER 2019-01-23 06:25 | Observation (INO) | payer OTHER ==
[~2019-01-23] VITALS: Ht 154.9 cm; Wt 108.0 kg
[2019-01-23 06:51] LABS: BASO # 0.1 10^3/uL (0.0-0.2); BASO % 1.3 % (0.0-1.0); EOS # 0.6 10^3/uL (0.0-0.50); EOS % 11.4 % (0.0-3.0); HEMATOCRIT 27.1 % (36.0-47.0); HEMOGLOBIN 8.1 g/dl (12.0-15.5); LYMPH # 0.8 10^3/uL (1.5-4.5); LYMPH % 14.7 % (24.0-44.0); MEAN CORPUSCULAR HEMOGLOBIN 28.3 pg (27.0-33.0); MEAN CORPUSCULAR HGB CONC 29.9 g/dl (32.0-36.5); MEAN CORPUSCULAR VOLUME 94.8 fl (80.0-96.0); MONO # 0.4 10^3/uL (0.0-0.8); MONO % 7.3 % (0.0-5.0); NEUTROPHILS # 3.5 10^3/uL (1.8-7.7); NEUTROPHILS % 64.9 % (36.0-66.0); PLATELET COUNT, AUTOMATED 101 10^3/uL (150-450); RED BLOOD COUNT 2.86 10^6/uL (4.00-5.40); WHITE BLOOD COUNT 5.4 10^3/uL (4.0-10.0)
[2019-01-23 07:00] LABS: INR 1.27; PROTHROMBIN TIME 16.1 SECONDS (12.1-14.4)
[2019-01-23 07:25] LABS: ALBUMIN 2.6 GM/DL (3.2-5.2); ALT/SGPT 24 U/L (12-78); BILIRUBIN,DIRECT 0.2 MG/DL (0.0-0.2); BILIRUBIN,TOTAL 0.5 MG/DL (0.2-1.0); BLOOD UREA NITROGEN 21 MG/DL (7-18); CALCIUM LEVEL 8.1 MG/DL (8.8-10.2); CARBON DIOXIDE LEVEL 25 MEQ/L (21-32); CHLORIDE LEVEL 109 MEQ/L (98-107); CK-MB VALUE MASS < 1.0 NG/ML (<3.6); CPK CREATINE PHOSPHOKINASE 60 U/L (26-192); CREATININE FOR GFR 1.29 MG/DL (0.55-1.30); GLOMERULAR FILTRATION RATE 44.3 (>45); GLUCOSE, FASTING 248 MG/DL (70-100); MB/CK RELATIVE INDEX 1.67 (< OR =4); POTASSIUM SERUM 4.7 MEQ/L (3.5-5.1); SODIUM LEVEL 141 MEQ/L (136-145); TOTAL PROTEIN 6.2 GM/DL (6.4-8.2); TROPONIN I < 0.02 NG/ML (< 0.10)
[2019-01-23] MEDS ORDERED: ACID1CAP5 PO (08:20)
--- NOTE | 2019-01-23 09:35 | REP ---
CHEST, SINGLE VIEW: COMPARISON: 01/04/2019. There is mild cardiomegaly. There is mild parenchymal opacity in the right base probably representing atelectasis, slightly improved since the prior study. No new infiltrate is seen. Mediastinal silhouette is unchanged. Electronically Signed by Avelino Cardoza MD 01/23/2019 04:39 P
--- NOTE | 2019-01-23 12:11 | REP ---
LIMITED ABDOMINAL ULTRASOUND: Limited abdominal ultrasound is performed to evaluate for ascites. There is a large amount of abdominal and pelvic ascites present. Paracentesis is subsequently performed. Electronically Signed by Avelino Cardoza MD 01/23/2019 04:56 P
[2019-01-23] MEDS ORDERED: LANTINJ4 SC (13:43)
[2019-01-23] MEDS ORDERED: BACITAB PO (13:43)
--- NOTE | 2019-01-23 14:14 | REP ---
CT Head without contrast HISTORY: Altered mental status COMPARISON: 04/02/2018 Areas of decreased attenuation are present in the periventricular white matter. This represents small-vessel ischemic disease. There is no intraparenchymal hemorrhage, acute infarct, mass or midline shift. The ventricular system and cortical sulci are dilated consistent with mild volume loss. There is no extra cerebral collection. There is no fracture. The visualized sinuses are clear. IMPRESSION: 1. Small vessel ischemic disease. 2. Mild volume loss. Electronically Signed by Raymond Holley MD 01/23/2019 02:05 P
[2019-01-23] MEDS ORDERED: MAALOX 30 ML SUSP *UDC PO PRN (14:30)
[2019-01-23] MEDS ORDERED: ACETAMINOPHEN TAB 650MG DOSE (2X325MG) PO PRN (14:30)
[2019-01-23] MEDS ORDERED: MOM 30ML SUSPENSION UDC PO PRN (14:30)
--- NOTE | 2019-01-23 14:44 | HPEPDOC ---
General Date of Admission January Date of Service: Jan 23, 2019 Attending Physician: YESI MCMAHON MD Chief Complaint The patient is a 63-year-old female admitted with a reason for visit of Altered Mental Status. Source: Patient Exam Limitations: No limitations Timing/Duration: Unsure Severity: Other Associated Symptoms: Other History of Present Illness 63 years old white female with past medical history of nonalcoholic cirrhosis with ascites and varices 911 and by the time, was transferred back patient had fallen on the floor and was found on the floor by police officers and was patient was brought to emergency room. As per ambulance report, patient had altered mental status, but when patient got to the emergency room is alert, oriented 3, no apparent distress and patient complaining of abdominal distention and pain. Patient was sent to IR from the emergency room and had a 7 L of aciticfluid rate and bladder when she was ready to be discharged was found that she had difficulty in ambulation and is being admitted for observation and physical therapy evaluation in a.m. Home Medications Scheduled Aspirin (Aspirin EC) 81 Mg Tabec, 81 MG PO DAILY, (Reported) Calcium Carbonate/Vitamin D3 (Calcium 500-Vit D3 600 Tablet) 1 Tab Tab, 1 TAB PO BID, (Reported) Escitalopram Oxalate (Escitalopram Oxalate) 20 Mg Tab, 20 MG PO DAILY, (Reported) Esomeprazole Magnesium (Nexium) 40 Mg Cap, 40 MG PO DAILY, (Reported) Ferrous Sulfate (Ferrous Sulfate) 325 Mg Tab, 325 MG PO BID, (Reported) Furosemide (Lasix) 40 Mg Tab, 40 MG PO BID, (Reported) TAKES WITH 20MG TABLET, TOTAL OF 60MG BID Furosemide (Lasix) 20 Mg Tab, 20 MG PO BID, (Reported) TAKES WITH 40MG TABLET , TOTAL 60MG BID Insulin Glargine,Hum.rec.anlog (Lantus Solostar) 100 Unit/1 Ml Insuln.pen, 94 UNITS SC BID, (Reported) Insulin Human Lispro (Novolog) 100 U/Ml Inj, 1 DOSE SC ACHS, (Reported) PER SLIDING SCALE L.acidoph/L.bulg/B.bif/S.therm (Bacid Caplet) 1 Each Tablet, 1 TAB PO DAILY, (Reported) Meclizine HCl (Meclizine HCl) 25 Mg Tab, 25 MG PO BID, (Reported) Nadolol (Nadolol) 20 Mg Tab, 40 MG PO DAILY, (Reported) Spironolactone (Spironolactone) 100 Mg Tab, 100 MG PO BID, (Reported) Allergies Coded Allergies: TAPE (Verified Allergy, Mild, 01/23/19) acetaminophen (Verified Adverse Reaction, Intermediate, LIVER PROBLEMS, 01/23/19) candesartan (Verified Adverse Reaction, Intermediate, CHEST PAIN, 01/23/19) hydrochlorothiazide (Verified Adverse Reaction, Intermediate, CHEST PAIN, 01/23/19) ibuprofen (Verified Adverse Reaction, Intermediate, LIVER PROBLEMS, 01/23/19) Past Medical History Medical History As per [facility] Surgical History Hernia repair, hysterectomy and both shoulder surgeries Family History Significant Family History: No pertinent family hx Social History * Smoker: Denies Alcohol: Denies Drugs: denies A-FIB/CHADSVASC A-FIB History Current/History of A-Fib/PAF?: No Review of Systems Constitutional: Denies: Chills, Fever, Malaise, Night Sweats, Weakness, Fatigue, Weight Loss, Lethargy, Other Eyes: Denies: Pain, Vision change, Conjunctivae inflammation, Eyelid inflammation, Redness, Other ENT: Denies: Head Aches, Ear Pain, Dysphagia, Sinus Congestion, Post Nasal Drip, Sore Throat, Epistaxis, Other Symptoms Skin: Denies: Rash, Lesions, Jaundice, Bruising, Itching, Dry, Breakdown, Nail Changes, Other Pulmonary: Denies: Dyspnea, Cough, Pleuritic Chest Pain, Other Symptoms Cardiovascular: Denies: Chest Pain, Palpitations, Orthopnea, Paroxysmal Noc. Dyspnea, Edema, Lt Headedness, Other Symptoms Gastrointestinal: Reports: Abdominal Pain, Other Symptoms (distention) Genitourinary: Denies: Dysuria, Frequency, Incontinence, Hematuria, Retention, Other Symptoms Hematologic: Denies: Bruising, Bleeding Excessively, Petecchia, Purpura, Enlarged Lymph Nodes, Other Hematologic Endocrine: Denies: Polydipsia, Polyphagia, Polyuria, Heat Intolerance, Cold Intolerance, Other Endocrine Sx Musculoskeletal: Denies: Neck Pain, Back Pain, Shoulder Pain, Arm Pain, Hand Pain, Leg Pain, Foot Pain, Joint Pain, Muscle Pain, Spasms, Other Symptoms Neurological: Denies: Weakness, Numbness, Incoordination, Change in speech, Confusion, Seizures, Other Symptoms Physical Examination General Exam: Positive: Alert, Cooperative Eye Exam: Positive: PERRLA, Conjunctiva & lids normal ENT Exam: Positive: Atraumatic, Mucous membr. moist/pink Neck Exam: Positive: Supple Chest Exam: Positive: Clear to auscultation, Normal air movement Heart Exam: Positive: Rate Normal, Normal S1, Normal S2 Abdomen Exam: Positive: Normal bowel sounds Skin Exam: Positive: Nl turgor and temperature Psych Exam: Positive: Mental status NL, Mood NL, Oriented x 3 Vital Signs Vital Signs Date Time Temp Pulse Resp B/P (MAP) Pulse Ox O2 Delivery O2 Flow Rate FiO2 01/23/19 13:30 98.6 76 20 102/51 (68) 96 01/23/19 06:57 Room Air Laboratory Data Labs 24H Laboratory Tests 2 01/23/19 06:38: Immature Granulocyte % (Auto) 0.4, White Blood Count 5.4, Red Blood Count 2.86L, Hemoglobin 8.1L, Hematocrit 27.1L, Mean Corpuscular Volume 94.8, Mean Corpuscular Hemoglobin 28.3, Mean Corpuscular Hemoglobin Concent 29.9L, Red Cell Distribution Width 13.9, Platelet Count 101L, Neutrophils (%) (Auto) 64.9, Lymphocytes (%) (Auto) 14.7L, Monocytes (%) (Auto) 7.3H, Eosinophils (%) (Auto) 11.4H, Basophils (%) (Auto) 1.3H, Neutrophils # (Auto) 3.5, Lymphocytes # (Auto) 0.8L, Monocytes # (Auto) 0.4, Eosinophils # (Auto) 0.6H, Basophils # (Auto) 0.1, Nucleated Red Blood Cells % (auto) 0.0, Prothrombin Time 16.1H, Prothromb Time International Ratio 1.27, Anion Gap 7L, Glomerular Filtration Rate 44.3L, Lactic Acid Level 1.8, Calcium Level 8.1L, Aspartate Amino Transf (AST/SGOT) 28, Alanine Aminotransferase (ALT/SGPT) 24, Alkaline Phosphatase 197H, Total Bilirubin 0.5, Direct Bilirubin 0.2, Ammonia 29, Total Creatine Kinase 60, Creatine Kinase MB < 1.0, Creatine Kinase MB Relative Index 1.67, Troponin I < 0.02, Total Protein 6.2L, Albumin 2.6L, Albumin/Globulin Ratio 0.72L, Thyroid Stimulating Hormone (TSH) 1.860 01/23/19 06:52: Bedside Glucose (Misc Panel) 252H CBC/BMP Laboratory Tests 01/23/19 06:38 Red Blood Count 2.86 L, Mean Corpuscular Volume 94.8, Mean Corpuscular Hemoglobin 28.3, Mean Corpuscular Hemoglobin Concent 29.9 L, Red Cell Distribution Width 13.9, Neutrophils (%) (Auto) 64.9, Lymphocytes (%) (Auto) 14.7 L, Monocytes (%) (Auto) 7.3 H, Eosinophils (%) (Auto) 11.4 H, Basophils (%) (Auto) 1.3 H, Neutrophils # (Auto) 3.5, Lymphocytes # (Auto) 0.8 L, Monocytes # (Auto) 0.4, Eosinophils # (Auto) 0.6 H, Basophils # (Auto) 0.1 Problems (1) Ascites Status: Chronic Problem Text: Patient was taken to interventional radiology and 7 L of acetic fluid was drained We'll order albumin 25% 2 units to be given to prevent hypotension Physical therapy evaluation Questionable syncope, most likely secondary to postural hypotension secondary to ascites are pain Will monitor on telemetry for 24 hours , No further workup is needed Possible discharge in a.m. once cleared by physical therapy (2) Liver cirrhosis Status: Chronic (3) Thrombocytopenia Status: Chronic (4) Syncope Status: Acute Problem Text: As above Plan / VTE VTE Prophylaxis Ordered?: Yes YESI MCMAHON MD Jan 23, 2019 14:43
[2019-01-23] MEDS ORDERED: GLUCAGON FOR INJ 1 MG VIAL (J1610) SC PRN (14:45)
[2019-01-23] MEDS ORDERED: DEXTROSE 50% 50 ML SYRINGE IV PRN (14:45)
[2019-01-23] MEDS ORDERED: GLUCOSE 4 GM CHEW TABLET PO PRN (14:45)
--- NOTE | 2019-01-23 16:20 | ECGEPIP ---
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
[2019-01-23 16:37] VITALS: BP 129/60
[2019-01-23] MEDS: LACTOBACILLUS ACIDOPHILUS CAP (BACID) PO SCH (18:01)
[2019-01-23] MEDS: ASPIRIN 81 MG ENTERIC TAB PO SCH (18:02)
[2019-01-23] MEDS: PANTOPRAZOLE 40MG TAB (PROTONIX) PO SCH (18:02)
[2019-01-23] MEDS: NADOLOL 20MG TABLET PO SCH (18:02)
[2019-01-23] MEDS: HumaLOG INSULIN (NovoLOG) PER UNIT SC SCH ×2 (18:16→23:06)
--- NOTE | 2019-01-23 18:20 | REP ---
Ultrasound-guided paracentesis The procedure was performed by ARMANDO Shepherd, under the direct supervision of Dr. Fu. The risks and benefits of the procedure were explained to the patient and informed consent was obtained both verbally and written. Directly prior to the start of the procedure, a formal timeout was completed in the procedure room. Under ultrasound guidance, the largest pocket of fluid in the right flank was localized and skin was marked. The skin was then prepped and draped in a sterile fashion. 10 ml of 1% lidocaine was used as a local anesthetic. Using ultrasound guidance, an 8-Czech multi side-hole catheter was inserted using trocar technique. 7,000 mL of cloudy yellow colored fluid was withdrawn and discarded. The patient tolerated the procedure well and there were no immediate complications. After the appropriate monitored convalescence the patient was discharged from the department. Reviewed by ARMANDO Montez 01/23/2019 12:57 P Electronically Signed by Lonny Fu MD 01/23/2019 06:11 P
[2019-01-23] MEDS: FUROSEMIDE 40 MG TAB PO SCH (20:08)
[2019-01-23] MEDS: FERROUS SULFATE 325MG TAB PO SCH (20:08)
[2019-01-23] MEDS: ESCITALOPRAM OXALATE 10 MG TAB (LEXAPRO) PO SCH (20:08)
[2019-01-23] MEDS: SPIRONOLACTONE 50 MG TAB PO SCH (20:08)
[2019-01-23] MEDS: DOCUSATE SODIUM 100 MG CAP PO SCH (20:08)
[2019-01-23] MEDS: FUROSEMIDE 20 MG TAB PO SCH (20:08)
[2019-01-23] MEDS: NS 500 ML IV ONE (21:00)
[2019-01-23] MEDS: ACETAMINOPHEN TAB 650MG DOSE (2X325MG) PO PRN (22:02)
[2019-01-23] MEDS: LEVEMIR (INSULIN DETEMIR) 1 UNITS/0.01ML SC SCH (23:05)
[2019-01-24] MEDS: ONDANSETRON 4MG/2ML VIAL (J2405) IV PRN (00:28)
[2019-01-24 06:00] VITALS: BP 90/67
[2019-01-24 06:23] LABS: HEMOGLOBIN 7.8 g/dl (12.0-15.5); MEAN CORPUSCULAR HEMOGLOBIN 28.7 pg (27.0-33.0); MEAN CORPUSCULAR VOLUME 95.6 fl (80.0-96.0); RED BLOOD COUNT 2.72 10^6/uL (4.00-5.40); WHITE BLOOD COUNT 3.2 10^3/uL (4.0-10.0)
[2019-01-24 06:42] LABS: ALBUMIN 2.7 GM/DL (3.2-5.2); BILIRUBIN,TOTAL 0.6 MG/DL (0.2-1.0); CALCIUM LEVEL 8.2 MG/DL (8.8-10.2); CREATININE FOR GFR 1.18 MG/DL (0.55-1.30); GLOMERULAR FILTRATION RATE 49.1 (>45); POTASSIUM SERUM 3.8 MEQ/L (3.5-5.1); TOTAL PROTEIN 6.3 GM/DL (6.4-8.2)
[2019-01-24 06:53] LABS: PLATELET COUNT, AUTOMATED 77 10^3/uL (150-450)
[2019-01-24] MEDS: FUROSEMIDE 20 MG TAB PO SCH ×2 (08:39→21:00)
[2019-01-24] MEDS: SPIRONOLACTONE 50 MG TAB PO SCH ×2 (08:39→21:00)
[2019-01-24] MEDS: LACTOBACILLUS ACIDOPHILUS CAP (BACID) PO SCH (08:41)
[2019-01-24] MEDS: ASPIRIN 81 MG ENTERIC TAB PO SCH (08:41)
[2019-01-24] MEDS: HumaLOG INSULIN (NovoLOG) PER UNIT SC SCH ×4 (08:41→21:00)
[2019-01-24] MEDS: DOCUSATE SODIUM 100 MG CAP PO SCH ×3 (08:41→21:00)
[2019-01-24] MEDS: FERROUS SULFATE 325MG TAB PO SCH ×2 (08:41→21:47)
[2019-01-24] MEDS: PANTOPRAZOLE 40MG TAB (PROTONIX) PO SCH (08:41)
[2019-01-24] MEDS: FUROSEMIDE 40 MG TAB PO SCH ×2 (08:42→21:00)
[2019-01-24] MEDS: LEVEMIR (INSULIN DETEMIR) 1 UNITS/0.01ML SC SCH ×2 (08:42→21:48)
[2019-01-24] MEDS: NADOLOL 20MG TABLET PO SCH (09:00)
--- NOTE | 2019-01-24 10:36 | IPNPDOC ---
Subjective Date Seen The patient was seen on 01/24/19. Subjective Chief Complaint/HPI Patient feels tired and fatigued. No shortness of breath General: Reports: Fatigue Constitutional: Denies: Chills, Fever, Malaise, Night Sweats, Weakness, Fatigue, Weight Loss, Lethargy, Other Eyes: Denies: Pain, Vision change, Conjunctivae inflammation, Eyelid inflammation, Redness, Other ENT: Denies: Head Aches, Ear Pain, Dysphagia, Sinus Congestion, Post Nasal Drip, Sore Throat, Epistaxis, Other Symptoms Skin: Denies: Rash, Lesions, Jaundice, Bruising, Itching, Dry, Breakdown, Nail Changes, Other Pulmonary: Denies: Dyspnea, Cough, Pleuritic Chest Pain, Other Symptoms Cardiovascular: Denies: Chest Pain, Palpitations, Orthopnea, Paroxysmal Noc. Dyspnea, Edema, Lt Headedness, Other Symptoms Gastrointestinal: Denies: Nausea, Vomiting, Abdominal Pain, Diarrhea, Constipation, Melena, Hematochezia, Other Symptoms Musculoskeletal: Denies: Neck Pain, Back Pain, Shoulder Pain, Arm Pain, Hand Pain, Leg Pain, Foot Pain, Joint Pain, Muscle Pain, Spasms, Other Symptoms Neurological: Denies: Weakness, Numbness, Incoordination, Change in speech, Confusion, Seizures, Other Symptoms Psych: Denies: Mood Normal, Anxiety, Depression, Memory Issues, Thoughts of Self Harm, Anger, Thoughts of Harming Other, Other Psych Objective Physical Examination General Exam: Positive: Alert, Cooperative Eye Exam: Positive: PERRLA, Conjunctiva & lids normal ENT Exam: Positive: Atraumatic, Mucous membr. moist/pink Neck Exam: Positive: Supple Chest Exam: Positive: Clear to auscultation, Normal air movement Heart Exam: Positive: Rate Normal, Normal S1, Normal S2 Abdomen Exam: Positive: Normal bowel sounds Skin Exam: Positive: Nl turgor and temperature Psych Exam: Positive: Mental status NL, Mood NL, Oriented x 3 Assessment /Plan Problems (1) Ascites Status: Chronic Problem Text: Patient was taken to interventional radiology and 7 L of acetic fluid was drained Albumin 25%. 2 units were given last night to prevent hypertension Is ago therapy in progress Patient's blood pressure slightly soft systolic under 100. We'll also closely once patient is stabilized, she can be discharged home Questionable syncope, most likely secondary to postural hypotension secondary to ascites are pain Will monitor on telemetry for 24 hours No further workup is needed , (2) Liver cirrhosis Status: Chronic (3) Thrombocytopenia Status: Chronic (4) Syncope Status: Acute Problem Text: As above Plan/VTE VTE Prophylaxis Ordered?: Yes VS, I&O, 24H, Fishbone Vital Signs/I&O Vital Signs Date Time Temp Pulse Resp B/P (MAP) Pulse Ox O2 Delivery O2 Flow Rate FiO2 01/24/19 06:00 97.0 61 18 90/67 (75) 97 01/23/19 15:46 Room Air I&O- Last 24 Hours up to 6 AM 01/24/19 06:00 Intake Total 240 ml Balance 240 ml Laboratory Data 24H LABS Laboratory Tests 2 01/23/19 17:46: Bedside Glucose (Misc Panel) 292H 01/23/19 21:42: Bedside Glucose (Misc Panel) 259H 01/24/19 05:45: Nucleated Red Blood Cells % (auto) 0.0, Immature Platelet Fraction 9.4, Anion Gap 10, Glomerular Filtration Rate 49.1, Blood Urea Nitrogen 19H, Creatinine 1. 18, Sodium Level 143, Potassium Level 3.8, Chloride Level 110H, Carbon Dioxide Level 23, Calcium Level 8.2L, Aspartate Amino Transf (AST/SGOT) 24, Alanine Aminotransferase (ALT/SGPT) 24, Alkaline Phosphatase 195H, Total Bilirubin 0.6, Total Protein 6.3L, Albumin 2.7L, Albumin/Globulin Ratio 0.75L CBC/BMP Laboratory Tests 01/24/19 05:45 Red Blood Count 2.72 L, Mean Corpuscular Volume 95.6, Mean Corpuscular Hemoglobin 28.7, Mean Corpuscular Hemoglobin Concent 30.0 L, Red Cell Distribution Width 13.8, Calcium Level 8.2 L, Aspartate Amino Transf (AST/SGOT) 24, Alanine Aminotransferase (ALT/SGPT) 24, Alkaline Phosphatase 195 H, Total Bilirubin 0.6, Total Protein 6.3 L, Albumin 2.7 L YESI MCMAHON MD Jan 24, 2019 10:35
[2019-01-24 14:00] VITALS: BP 96/53
[2019-01-24] MEDS: ESCITALOPRAM OXALATE 10 MG TAB (LEXAPRO) PO SCH (21:47)
[2019-01-24 22:00] VITALS: BP 106/78
[2019-01-25] MEDS: ONDANSETRON 4MG/2ML VIAL (J2405) IV PRN (01:24)
[2019-01-25 06:00] VITALS: BP 101/62
[2019-01-25] MEDS: HumaLOG INSULIN (NovoLOG) PER UNIT SC SCH ×4 (08:00→22:26)
[2019-01-25] MEDS: DOCUSATE SODIUM 100 MG CAP PO SCH ×2 (08:01→22:26)
[2019-01-25] MEDS: ASPIRIN 81 MG ENTERIC TAB PO SCH (08:01)
[2019-01-25] MEDS: LEVEMIR (INSULIN DETEMIR) 1 UNITS/0.01ML SC SCH ×2 (08:01→22:26)
[2019-01-25] MEDS: FUROSEMIDE 20 MG TAB PO SCH ×3 (08:01→22:25)
[2019-01-25] MEDS: FERROUS SULFATE 325MG TAB PO SCH ×2 (08:01→22:25)
[2019-01-25] MEDS: LACTOBACILLUS ACIDOPHILUS CAP (BACID) PO SCH (08:01)
[2019-01-25] MEDS: PANTOPRAZOLE 40MG TAB (PROTONIX) PO SCH (08:01)
[2019-01-25] MEDS: SPIRONOLACTONE 50 MG TAB PO SCH ×3 (08:02→22:25)
[2019-01-25] MEDS: FUROSEMIDE 40 MG TAB PO SCH ×2 (08:02→22:25)
[2019-01-25] MEDS: NADOLOL 20MG TABLET PO SCH (10:00)
--- NOTE | 2019-01-25 12:40 | IPNPDOC ---
Subjective Date Seen The patient was seen on 01/25/19. Subjective Chief Complaint/HPI Patient is comfortable. Once his PT clears that she can be discharged home. If not, then she possibly go to ARU General: Reports: Fatigue; Denies: ROS Unobtainable, Chills, Night Sweats, Malaise, Normal Appetite, Other Symptoms Constitutional: Denies: Chills, Fever, Malaise, Night Sweats, Weakness, Fatigue, Weight Loss, Lethargy, Other Eyes: Denies: Pain, Vision change, Conjunctivae inflammation, Eyelid inflammati on, Redness, Other ENT: Denies: Head Aches, Ear Pain, Dysphagia, Sinus Congestion, Post Nasal Drip, Sore Throat, Epistaxis, Other Symptoms Skin: Denies: Rash, Lesions, Jaundice, Bruising, Itching, Dry, Breakdown, Nail Changes, Other Pulmonary: Denies: Dyspnea, Cough, Pleuritic Chest Pain, Other Symptoms Cardiovascular: Denies: Chest Pain, Palpitations, Orthopnea, Paroxysmal Noc. Dyspnea, Edema, Lt Headedness, Other Symptoms Gastrointestinal: Denies: Nausea, Vomiting, Abdominal Pain, Diarrhea, Constipation, Melena, Hematochezia, Other Symptoms Musculoskeletal: Denies: Neck Pain, Back Pain, Shoulder Pain, Arm Pain, Hand Pain, Leg Pain, Foot Pain, Joint Pain, Muscle Pain, Spasms, Other Symptoms Neurological: Denies: Weakness, Numbness, Incoordination, Change in speech, Confusion, Seizures, Other Symptoms Psych: Denies: Mood Normal, Anxiety, Depression, Memory Issues, Thoughts of Self Harm, Anger, Thoughts of Harming Other, Other Psych Objective Physical Examination General Exam: Positive: Alert, Cooperative Eye Exam: Positive: PERRLA, Conjunctiva & lids normal ENT Exam: Positive: Atraumatic, Mucous membr. moist/pink Neck Exam: Positive: Supple Chest Exam: Positive: Clear to auscultation, Normal air movement Heart Exam: Positive: Rate Normal, Normal S1, Normal S2 Abdomen Exam: Positive: Normal bowel sounds Skin Exam: Positive: Nl turgor and temperature Psych Exam: Positive: Mental status NL, Mood NL, Oriented x 3 Assessment /Plan Problems (1) Ascites Status: Chronic Problem Text: Patient was taken to interventional radiology and 7 L of acetic fluid was drained Albumin 25%. 2 units were given last night to prevent hypertension Is ago therapy in progress Patient's blood pressure slightly soft systolic under 100. We'll also closely once patient is stabilized, she can be discharged home Questionable syncope, most likely secondary to postural hypotension secondary to ascites are pain Patient is clinically stable and can be discharged home with home care R subacute rehabilitation facility pending on physical therapy recommendation , (2) Liver cirrhosis Status: Chronic (3) Thrombocytopenia Status: Chronic (4) Syncope Status: Acute Problem Text: As above Plan/VTE VTE Prophylaxis Ordered?: Yes VS, I&O, 24H, Fishbone Vital Signs/I&O Vital Signs Date Time Temp Pulse Resp B/P (MAP) Pulse Ox O2 Delivery O2 Flow Rate FiO2 01/25/19 10:00 64 96/46 01/25/19 06:00 97.2 18 94 01/24/19 12:00 0.0 01/23/19 15:46 Room Air I&O- Last 24 Hours up to 6 AM 01/25/19 06:00 Intake Total 3850 ml Balance 3850 ml Laboratory Data 24H LABS Laboratory Tests 2 01/24/19 17:27: Bedside Glucose (Misc Panel) 226H 01/24/19 20:31: Bedside Glucose (Misc Panel) 234H 01/25/19 06:10: Bedside Glucose (Misc Panel) 210H 01/25/19 11:45: Bedside Glucose (Misc Panel) 195H YESI MCMAHON MD Jan 25, 2019 12:40
[2019-01-25 22:00] VITALS: BP 99/54
[2019-01-25] MEDS: ESCITALOPRAM OXALATE 10 MG TAB (LEXAPRO) PO SCH (22:26)
[2019-01-26] MEDS: ONDANSETRON 4MG/2ML VIAL (J2405) IV PRN ×2 (00:32→21:31)
[2019-01-26 06:00] VITALS: BP 100/55
[2019-01-26] MEDS: ACETAMINOPHEN TAB 650MG DOSE (2X325MG) PO PRN ×2 (06:18→18:50)
[2019-01-26] MEDS: FERROUS SULFATE 325MG TAB PO SCH ×2 (08:08→21:31)
[2019-01-26] MEDS: LACTOBACILLUS ACIDOPHILUS CAP (BACID) PO SCH (08:08)
[2019-01-26] MEDS: SPIRONOLACTONE 50 MG TAB PO SCH ×2 (08:08→21:31)
[2019-01-26] MEDS: ASPIRIN 81 MG ENTERIC TAB PO SCH (08:09)
[2019-01-26] MEDS: NADOLOL 20MG TABLET PO SCH (08:09)
[2019-01-26] MEDS: FUROSEMIDE 40 MG TAB PO SCH ×2 (08:09→21:30)
[2019-01-26] MEDS: FUROSEMIDE 20 MG TAB PO SCH ×2 (08:09→21:31)
[2019-01-26] MEDS: DOCUSATE SODIUM 100 MG CAP PO SCH ×2 (08:10→21:31)
[2019-01-26] MEDS: PANTOPRAZOLE 40MG TAB (PROTONIX) PO SCH (08:10)
[2019-01-26] MEDS: LEVEMIR (INSULIN DETEMIR) 1 UNITS/0.01ML SC SCH ×2 (08:10→21:32)
[2019-01-26] MEDS: HumaLOG INSULIN (NovoLOG) PER UNIT SC SCH ×4 (08:11→21:33)
--- NOTE | 2019-01-26 10:15 | IPNPDOC ---
Subjective Date Seen The patient was seen on 01/26/19. Subjective Chief Complaint/HPI Patient is ambulatory with a walker still not cleared by physical therapy for discharge home. She offers no new complaints at the present time General: Denies: ROS Unobtainable, Chills, Night Sweats, Fatigue, Malaise, Normal Appetite, Other Symptoms Constitutional: Denies: Chills, Fever, Malaise, Night Sweats, Weakness, Fatigue, Weight Loss, Lethargy, Other Eyes: Denies: Pain, Vision change, Conjunctivae inflammation, Eyelid inflammation, Redness, Other ENT: Denies: Head Aches, Ear Pain, Dysphagia, Sinus Congestion, Post Nasal Drip, Sore Throat, Epistaxis, Other Symptoms Skin: Denies: Rash, Lesions, Jaundice, Bruising, Itching, Dry, Breakdown, Nail Changes, Other Pulmonary: Denies: Dyspnea, Cough, Pleuritic Chest Pain, Other Symptoms Cardiovascular: Denies: Chest Pain, Palpitations, Orthopnea, Paroxysmal Noc. Dyspnea, Edema, Lt Headedness, Other Symptoms Gastrointestinal: Denies: Nausea, Vomiting, Abdominal Pain, Diarrhea, Constipation, Melena, Hematochezia, Other Symptoms Musculoskeletal: Denies: Neck Pain, Back Pain, Shoulder Pain, Arm Pain, Hand Pain, Leg Pain, Foot Pain, Joint Pain, Muscle Pain, Spasms, Other Symptoms Neurological: Denies: Weakness, Numbness, Incoordination, Change in speech, Confusion, Seizures, Other Symptoms Psych: Denies: Mood Normal, Anxiety, Depression, Memory Issues, Thoughts of Self Harm, Anger, Thoughts of Harming Other, Other Psych Objective Physical Examination General Exam: Positive: Alert, Cooperative Eye Exam: Positive: PERRLA, Conjunctiva & lids normal ENT Exam: Positive: Atraumatic, Mucous membr. moist/pink Neck Exam: Positive: Supple Chest Exam: Positive: Clear to auscultation, Normal air movement Heart Exam: Positive: Rate Normal, Normal S1, Normal S2 Abdomen Exam: Positive: Normal bowel sounds Skin Exam: Positive: Nl turgor and temperature Psych Exam: Positive: Mental status NL, Mood NL, Oriented x 3 Assessment /Plan Problems (1) Ascites Status: Chronic Problem Text: Patient was taken to interventional radiology and 7 L of acetic fluid was drained Albumin 25%. 2 units were given last night to prevent hypertension Is ago therapy in progress Patient's blood pressure slightly soft systolic under 100. We'll also closely once patient is stabilized, she can be discharged home Questionable syncope, most likely secondary to postural hypotension secondary to ascites are pain Patient is clinically stable and not cleared by physical therapy yet for discharge home Possible discharge home once physical therapy clearance are discharged to acute rehabilitation facility A.m. laboratory work has been ordered as patient's request No workup is pending , (2) Liver cirrhosis Status: Chronic (3) Thrombocytopenia Status: Chronic (4) Syncope Status: Acute Problem Text: As above Plan/VTE VTE Prophylaxis Ordered?: Yes VS, I&O, 24H, Fishbone Vital Signs/I&O Vital Signs Date Time Temp Pulse Resp B/P (MAP) Pulse Ox O2 Delivery O2 Flow Rate FiO2 01/26/19 08:09 62 98/51 01/26/19 06:00 98.9 18 97 01/24/19 12:00 0.0 01/23/19 15:46 Room Air I&O- Last 24 Hours up to 6 AM 01/26/19 06:00 Intake Total 1630 ml Output Total 2250 ml Balance -620 ml Laboratory Data 24H LABS Laboratory Tests 2 01/25/19 11:45: Bedside Glucose (Misc Panel) 195H 01/25/19 16:33: Bedside Glucose (Misc Panel) 310H 01/25/19 20:15: Bedside Glucose (Misc Panel) 356H 01/26/19 06:18: Bedside Glucose (Misc Panel) 177YESI REYES MD Jan 26, 2019 10:15
[2019-01-26 14:00] VITALS: BP 89/42
[2019-01-26 15:30] VITALS: BP 96/54
[2019-01-26 16:12] VITALS: BP 107/56
[2019-01-26 18:44] VITALS: BP 100/51
[2019-01-26] MEDS: ESCITALOPRAM OXALATE 10 MG TAB (LEXAPRO) PO SCH (21:30)
[2019-01-26 22:00] VITALS: BP 106/52
[2019-01-27] MEDS ORDERED: PILL CUTTER 1 EACH XX PRN (00:30)
[2019-01-27] MEDS: oxyCODONE 5MG TAB PO PRN ×2 (00:50→17:52)
[2019-01-27 06:00] VITALS: BP 106/56
[2019-01-27 06:36] LABS: BASO % 0.8 % (0.0-1.0); EOS # 0.5 10^3/uL (0.0-0.50); EOS % 9.6 % (0.0-3.0); HEMATOCRIT 26.7 % (36.0-47.0); HEMOGLOBIN 8.1 g/dl (12.0-15.5); LYMPH # 0.8 10^3/uL (1.5-4.5); LYMPH % 17.1 % (24.0-44.0); MEAN CORPUSCULAR HEMOGLOBIN 28.9 pg (27.0-33.0); MEAN CORPUSCULAR HGB CONC 30.3 g/dl (32.0-36.5); MEAN CORPUSCULAR VOLUME 95.4 fl (80.0-96.0); MONO # 0.4 10^3/uL (0.0-0.8); MONO % 8.1 % (0.0-5.0); NEUTROPHILS # 3.1 10^3/uL (1.8-7.7); NEUTROPHILS % 63.6 % (36.0-66.0); WHITE BLOOD COUNT 4.9 10^3/uL (4.0-10.0)
[2019-01-27 06:44] LABS: PLATELET COUNT, AUTOMATED 92 10^3/uL (150-450)
[2019-01-27 06:58] LABS: ALBUMIN 2.7 GM/DL (3.2-5.2); BILIRUBIN,TOTAL 0.4 MG/DL (0.2-1.0); CALCIUM LEVEL 8.8 MG/DL (8.8-10.2); CREATININE FOR GFR 1.58 MG/DL (0.55-1.30); GLOMERULAR FILTRATION RATE 35.1 (>45); POTASSIUM SERUM 3.7 MEQ/L (3.5-5.1); TOTAL PROTEIN 6.7 GM/DL (6.4-8.2)
[2019-01-27] MEDS: ASPIRIN 81 MG ENTERIC TAB PO SCH (08:00)
[2019-01-27] MEDS: SPIRONOLACTONE 50 MG TAB PO SCH ×2 (08:00→20:51)
[2019-01-27] MEDS: FUROSEMIDE 20 MG TAB PO SCH ×2 (08:00→20:52)
[2019-01-27] MEDS: PANTOPRAZOLE 40MG TAB (PROTONIX) PO SCH (08:00)
[2019-01-27] MEDS: DOCUSATE SODIUM 100 MG CAP PO SCH ×2 (08:00→20:52)
[2019-01-27] MEDS: FERROUS SULFATE 325MG TAB PO SCH ×2 (08:00→20:52)
[2019-01-27] MEDS: LACTOBACILLUS ACIDOPHILUS CAP (BACID) PO SCH (08:00)
[2019-01-27] MEDS: FUROSEMIDE 40 MG TAB PO SCH ×2 (08:01→20:52)
[2019-01-27] MEDS: LEVEMIR (INSULIN DETEMIR) 1 UNITS/0.01ML SC SCH ×2 (08:02→20:51)
[2019-01-27] MEDS: HumaLOG INSULIN (NovoLOG) PER UNIT SC SCH ×4 (08:02→20:51)
[2019-01-27] MEDS: NADOLOL 20MG TABLET PO SCH (08:08)
[2019-01-27 14:00] VITALS: BP 104/52
--- NOTE | 2019-01-27 20:08 | IPNPDOC ---
Text Note Date of Service The patient was seen on 01/27/19. NOTE Pt was seen and examined at bedside. No acute events overnight. Denies any new complaints. PHE: General Exam: Positive: Alert, Cooperative Eye Exam: Positive: PERRLA, Conjunctiva & lids normal ENT Exam: Positive: Atraumatic, Mucous membr. moist/pink Neck Exam: Positive: Supple Chest Exam: Positive: Clear to auscultation, Normal air movement Heart Exam: Positive: Rate Normal, Normal S1, Normal S2 Abdomen Exam: Positive: Normal bowel sounds Skin Exam: Positive: Nl turgor and temperature Psych Exam: Positive: Mental status NL, Mood NL, Oriented x 3 Vital Signs Date Time Temp Pulse Resp B/P (MAP) Pulse Ox O2 Delivery O2 Flow Rate FiO2 01/27/19 22:00 97.3 67 18 92/47 (62) 98 01/27/19 18:22 17 01/27/19 17:52 17 01/27/19 14:00 97.4 67 20 104/52 (69) 95 01/27/19 08:08 61 116/56 01/27/19 06:00 98.2 59 15 106/56 (73) 99 Intake & Output 01/28/19 06:00 Intake Total 1100 ml Output Total 2800 ml Balance -1700 ml Laboratory Tests 01/27/19 06:07: White Blood Count 4.9, Red Blood Count 2.80L, Hemoglobin 8.1L, Hematocrit 26.7L, Mean Corpuscular Volume 95.4, Mean Corpuscular Hemoglobin 28.9, Mean Corpuscular Hemoglobin Concent 30.3L, Red Cell Distribution Width 15.2H, Platelet Count 92L, Neutrophils (%) (Auto) 63.6, Lymphocytes (%) (Auto) 17.1L, Monocytes (%) (Auto) 8.1H, Eosinophils (%) (Auto) 9.6H, Basophils (%) (Auto) 0.8, Neutrophils # (Auto) 3.1, Lymphocytes # (Auto) 0.8L, Monocytes # (Auto) 0.4, Eosinophils # (Auto) 0.5, Basophils # (Auto) 0.0, Immature Granulocyte % (Auto) 0.8, Nucleated Red Blood Cells % (auto) 0.0, Immature Platelet Fraction 8.0, Blood Urea Nitrogen 29H, Creatinine 1.58H, Sodium Level 142, Potassium Level 3.7, Chloride Level 108H, Carbon Dioxide Level 26, Calcium Level 8.8, Aspartate Amino Transf (AST/SGOT) 21, Alanine Aminotransferase (ALT/SGPT) 29, Alkaline Phosphatase 187H, Total Bilirubin 0.4, Total Protein 6.7, Albumin 2.7L, Anion Gap 8, Glomerular Filtration Rate 35.1L, Fasting Glucose 210H, Albumin/Globulin Ratio 0.68L 01/27/19 11:51: Bedside Glucose (Misc Panel) 207H 01/27/19 16:42: Bedside Glucose (Misc Panel) 324H 01/27/19 20:22: Bedside Glucose (Misc Panel) 316H Current Medications Medications (Trade) Dose Ordered Sig/Sung Route PRN Reason Start Time Stop Time Status Last Admin Dose Admin Acetaminophen (Tylenol Tab) 650 mg Q8HP PRN PO PAIN / FEVER 01/23/19 21:00 01/26/19 18:50 650 MG Aspirin (Ecotrin) 81 mg DAILY PO 01/23/19 09:00 01/27/19 08:00 81 MG Docusate Sodium (Colace) 100 mg BID PO 01/23/19 21:00 01/27/19 20:52 100 MG Escitalopram Oxalate (Lexapro) 20 mg QHS PO 01/23/19 21:00 01/27/19 20:52 20 MG Ferrous Sulfate (Ferrous Sulfate) 325 mg BID PO 01/23/19 21:00 01/27/19 20:52 325 MG Furosemide (Lasix) 40 mg BID PO 01/23/19 21:00 01/27/19 20:52 40 MG Insulin Detemir (Levemir Insulin) 94 units BID SC 01/23/19 21:00 01/27/19 20:51 94 UNITS Insulin Human Lispro (HumaLOG INSULIN) SEE PROTOCOL TABLE QHS SC 01/23/19 21:00 01/27/19 20:51 4 UNITS Lactobacillus Acidophilus (Bacid) 1 ea DAILY PO 01/23/19 09:00 01/27/19 08:00 1 EA Nadolol (Corgard) 40 mg DAILY PO 01/23/19 09:00 01/27/19 08:08 40 MG Ondansetron HCl (ZOFRAN INJection) 4 mg Q6HP PRN IV NAUSEA OR VOMITING 01/24/19 00:15 6/15/19 21:31 4 MG Oxycodone HCl (Roxicodone, Oxyir) 2.5 mg Q6HP PRN PO PAIN 01/27/19 00:15 01/27/19 17:52 2.5 MG Pantoprazole Sodium (Protonix) 40 mg DAILY PO 01/23/19 09:00 01/27/19 08:00 40 MG Spironolactone (Aldactone) 100 mg BID PO 01/23/19 21:00 01/27/19 20:51 100 MG A/P Continue current management as previously recorded: (1) Ascites Patient was taken to interventional radiology and 7 L of acetic fluid was drained Albumin 25%. 2 units were given last night to prevent hypertension Is ago therapy in progress Patient's blood pressure slightly soft systolic under 100. We'll also closely once patient is stabilized, she can be discharged home Questionable syncope, most likely secondary to postural hypotension secondary to ascites are pain Patient is clinically stable and not cleared by physical therapy yet for discharge home Possible discharge home once physical therapy clearance are discharged to acute rehabilitation facility A.m. laboratory work has been ordered as patient's request No workup is pending (2) Liver cirrhosis Chronic (3) Thrombocytopenia Chronic (4) Syncope Acute VS,Fishbone, I+O VS, Fishbone, I+O Laboratory Tests 01/27/19 06:07 Red Blood Count 2.80 L, Mean Corpuscular Volume 95.4, Mean Corpuscular Hemoglobin 28.9, Mean Corpuscular Hemoglobin Concent 30.3 L, Red Cell Distribution Width 15.2 H, Neutrophils (%) (Auto) 63.6, Lymphocytes (%) (Auto) 17.1 L, Monocytes (%) (Auto) 8.1 H, Eosinophils (%) (Auto) 9.6 H, Basophils (%) (Auto) 0.8, Neutrophils # (Auto) 3.1, Lymphocytes # (Auto) 0.8 L, Monocytes # (Auto) 0.4, Eosinophils # (Auto) 0.5, Basophils # (Auto) 0.0, Calcium Level 8.8, Aspartate Amino Transf (AST/SGOT) 21, Alanine Aminotransferase (ALT/SGPT) 29, Alkaline Phosphatase 187 H, Total Bilirubin 0.4, Total Protein 6.7, Albumin 2.7 L Vital Signs Date Time Temp Pulse Resp B/P (MAP) Pulse Ox O2 Delivery O2 Flow Rate FiO2 01/27/19 18:22 17 01/27/19 14:00 97.4 67 104/52 (69) 95 01/24/19 12:00 0.0 01/23/19 15:46 Room Air I&O- Last 24 Hours up to 6 AM 01/27/19 06:00 Intake Total 870 ml Output Total 1400 ml Balance -530 ml DOMINIC SANCHEZ MD Jan 27, 2019 20:08
[2019-01-27] MEDS: ESCITALOPRAM OXALATE 10 MG TAB (LEXAPRO) PO SCH (20:52)
[2019-01-27 22:00] VITALS: BP 92/47
[2019-01-28] MEDS: ACETAMINOPHEN TAB 650MG DOSE (2X325MG) PO PRN (05:25)
[2019-01-28 06:00] VITALS: BP 114/51
[2019-01-28] MEDS ORDERED: LEVEMIR (INSULIN DETEMIR) 1 UNITS/0.01ML SC SCH (09:00)
[2019-01-28] MEDS: PANTOPRAZOLE 40MG TAB (PROTONIX) PO SCH (09:30)
[2019-01-28] MEDS: ASPIRIN 81 MG ENTERIC TAB PO SCH (09:30)
[2019-01-28] MEDS: FERROUS SULFATE 325MG TAB PO SCH (09:30)
[2019-01-28] MEDS: DOCUSATE SODIUM 100 MG CAP PO SCH (09:30)
[2019-01-28] MEDS: HumaLOG INSULIN (NovoLOG) PER UNIT SC SCH ×3 (09:30→17:29)
[2019-01-28] MEDS: LACTOBACILLUS ACIDOPHILUS CAP (BACID) PO SCH (09:30)
[2019-01-28 10:00] VITALS: BP 145/80
[2019-01-28] MEDS: SPIRONOLACTONE 50 MG TAB PO SCH (10:12)
[2019-01-28] MEDS: FUROSEMIDE 20 MG TAB PO SCH (10:12)
[2019-01-28] MEDS: FUROSEMIDE 40 MG TAB PO SCH (10:12)
[2019-01-28 10:13] VITALS: BP 100/40
[2019-01-28] MEDS: NADOLOL 20MG TABLET PO SCH (10:13)
[2019-01-28] MEDS ORDERED: SPIR100T3 PO (13:17)
[2019-01-28] MEDS ORDERED: NADO20TA PO (13:17)
[2019-01-28 14:00] VITALS: BP 110/56
--- NOTE | 2019-01-28 14:38 | DS.PDOC ---
Discharge Summary General Date of Admission Jan 23, 2019 at 14:25 Date of Discharge 01/28/19 Discharge Summary PROCEDURES PERFORMED DURING STAY: [None]. ADMITTING DIAGNOSES: 1. Ascites 2. Liver cirrhosis 3. Thrombocytopenia 4. Syncope DISCHARGE DIAGNOSES: 1. Ascites 2. Liver cirrhosis 3. Thrombocytopenia 4. Syncope COMPLICATIONS/CHIEF COMPLAINT: Ascites Cirrhosis Generalized Weakness. HISTORY OF PRESENT ILLNESS: "63 years old white female with past medical history of nonalcoholic cirrhosis with ascites and varices 911 and by the time, was transferred back patient had fallen on the floor and was found on the floor by police officers and was patient was brought to emergency room. As per ambulance report, patient had altered mental status, but when patient got to the emergency room is alert, oriented 3, no apparent distress and patient complaining of abdominal distention and pain. Patient was sent to IR from the emergency room and had a 7 L of aciticfluid rate and bladder when she was ready to be discharged was found that she had difficulty in ambulation and is being admitted for observation and physical therapy evaluation in a.m." HOSPITAL COURSE: Patient is a 63-year-old female with past medical history of nonalcoholic cirrhosis with ascites and varices was brought in to the ER with reported fallen at home. Patient reportedly had altered mental status but was alert and oriented 3 when evaluated by the ER. She was evaluated and sent to IR for paracentesis with subsequent removal of 7 L of ascitic fluid with initial plan to send home from ER. However, patient was admitted for observation after being found difficulty in ambulation. Her clinical status improve and had been working with physical therapy since admission. She is cleared for PT perspective today and we'll discharge patient continue follow-up as outpatient with her primary care physician. Patient was noted to have periods of intermittent hypotension with SBP into the 90s systolic but comes back up to 100s. She is on a number of medications including aldactone and nadolol. Nadolol as reduced from 40 to 20 mg daily, placed with holding parameters to hold SBP <105. To follow up BP with PMD as outpatient. Needs monitoring. DISCHARGE MEDICATIONS: Please see below. ALLERGIES: Please see below. PHYSICAL EXAMINATION ON DISCHARGE: VITAL SIGNS: Please see below. General: No acute distress, Alert Eyes: Normal sclera, EOMI, MALCOLM HENT: Atraumatic, neck supple, moist mucous membranes Cardiovascular: Normal rate, normal rhythm. No murmurs appreciated. Pulmonary: Clear to auscultation b/l, no wheezing GI: Soft, nontender Skin: Warm and dry Neuro: CN grossly intact. No focal deficits. Psych: oriented x 3 LABORATORY DATA: Please see below. IMAGING: Head CT- IMPRESSION: 1. Small vessel ischemic disease. 2. Mild volume loss. Abdomen US- LIMITED ABDOMINAL ULTRASOUND: Limited abdominal ultrasound is performed to evaluate for ascites. There is a large amount of abdominal and pelvic ascites present. Paracentesis is subsequently performed. ACTIVITY: [As tolerated]. DIET: Consistent Carbohydrate DISCHARGE PLAN: f/u PMD, f/u BP monitoring. DISPOSITION: Home with home health services. DISCHARGE INSTRUCTIONS: f/u PMD, f/u BP monitoring. ITEMS TO FOLLOWUP ON ON OUTPATIENT: 1. Continue BP monitoring DISCHARGE CONDITION: [Stable]. TIME SPENT ON DISCHARGE: 32 minutes. Vital Signs/I&Os Vital Signs Date Time Temp Pulse Resp B/P (MAP) Pulse Ox O2 Delivery O2 Flow Rate FiO2 01/28/19 10:13 65 100/40 01/28/19 06:00 96.6 18 96 01/24/19 12:00 0.0 01/23/19 15:46 Room Air I&O- Last 24 Hours up to 6 AM 01/28/19 06:00 Intake Total 1100 ml Output Total 3400 ml Balance -2300 ml Laboratory Data Labs 24H Laboratory Tests 2 01/27/19 16:42: Bedside Glucose (Misc Panel) 324H 01/27/19 20:22: Bedside Glucose (Misc Panel) 316H 01/28/19 05:11: Bedside Glucose (Misc Panel) 130H 01/28/19 09:24: Bedside Glucose (Misc Panel) 136H 01/28/19 11:57: Bedside Glucose (Misc Panel) 195H FSBS Laboratory Tests Test 01/27/19 16:42 01/27/19 20:22 01/28/19 05:11 01/28/19 09:24 Range/Units Bedside Glucose (Misc Panel) 324 316 130 136 80-115 MG/DL Test 01/28/19 11:57 Range/Units Bedside Glucose (Misc Panel) 195 80-115 MG/DL Discharge Medications Scheduled Aspirin (Aspirin EC) 81 Mg Tabec, 81 MG PO DAILY, (Reported) Calcium Carbonate/Vitamin D3 (Calcium 500-Vit D3 600 Tablet) 1 Tab Tab, 1 TAB PO BID, (Reported) Escitalopram Oxalate (Escitalopram Oxalate) 20 Mg Tab, 20 MG PO DAILY, (Reported) Esomeprazole Magnesium (Nexium) 40 Mg Cap, 40 MG PO DAILY, (Reported) Ferrous Sulfate (Ferrous Sulfate) 325 Mg Tab, 325 MG PO BID, (Reported) Furosemide (Lasix) 40 Mg Tab, 40 MG PO BID, (Reported) TAKES WITH 20MG TABLET, TOTAL OF 60MG BID Furosemide (Lasix) 20 Mg Tab, 20 MG PO BID, (Reported) TAKES WITH 40MG TABLET , TOTAL 60MG BID Insulin Glargine,Hum.rec.anlog (Lantus Solostar) 100 Unit/1 Ml Insuln.pen, 94 UNITS SC BID, (Reported) Insulin Human Lispro (Novolog) 100 U/Ml Inj, 1 DOSE SC ACHS, (Reported) PER SLIDING SCALE L.acidoph/L.bulg/B.bif/S.therm (Bacid Caplet) 1 Each Tablet, 1 TAB PO DAILY, (Reported) Meclizine HCl (Meclizine HCl) 25 Mg Tab, 25 MG PO BID, (Reported) Nadolol (Nadolol) 20 Mg Tab, 20 MG PO DAILY DO not take if systolic blood pressure is below 105 Spironolactone (Spironolactone) 100 Mg Tab, 100 MG PO BID do not take if systolic blood pressure is below 105 Allergies Coded Allergies: TAPE (Verified Allergy, Mild, 01/23/19) acetaminophen (Verified Adverse Reaction, Intermediate, LIVER PROBLEMS, 01/23/19) candesartan (Verified Adverse Reaction, Intermediate, CHEST PAIN, 01/23/19) hydrochlorothiazide (Verified Adverse Reaction, Intermediate, CHEST PAIN, 01/23/19) ibuprofen (Verified Adverse Reaction, Intermediate, LIVER PROBLEMS, 01/23/19) MARY CURIEL MD Jan 28, 2019 14:38
[2019-01-29] MEDS ORDERED: NADOLOL 20MG TABLET PO SCH (09:00)
== END 2019-01-28 18:15 | disposition home or self-care (01) ==
LOC: M ED 06:25 → M ED INP 14:25 → M MSPAV 16:21
PROVIDERS: ADMIT Internal Medicine; ATTEND Student in an Organized Health Care Education/Training Program
DX: R18.8 Other ascites (principal); K74.69 Other cirrhosis of liver; D69.6 Thrombocytopenia, unspecified; R55 Syncope and collapse; Z79.82 Long term (current) use of aspirin; Z79.4 Long term (current) use of insulin; Z79.899 Other long term (current) drug therapy; Z88.8 Allergy status to other drugs, medicaments and biological substances
CPT/HCPCS: 36415; 36430; 49083; 70450; 71045; 76705; 80048; 80053; 80076; 82140; 82550; 82553; 83605; 84443; 84484; 85025; 85027; 85049; 85055; 85610; 93005; 93041; 94760; 96374; 96376; 97110; 97116; 97161; 97530; 99285; J2405; P9047

== ENCOUNTER → 2019-02-01 | Outpatient (REF) | payer OTHER ==
[~2019-02-01] MED LIST changes: +ACID1CAP5 PO; +AMIT10TA PO; +IRON27TA2 PO; +LANTINJ4 SC; +ROPI2TAB PO
[2019-02-01 12:19] LABS: BASO % 1.2 % (0.0-1.0); EOS # 0.3 10^3/uL (0.0-0.50); EOS % 7.8 % (0.0-3.0); HEMATOCRIT 27.4 % (36.0-47.0); LYMPH # 0.5 10^3/uL (1.5-4.5); LYMPH % 15.3 % (24.0-44.0); MEAN CORPUSCULAR HEMOGLOBIN 29.1 pg (27.0-33.0); MEAN CORPUSCULAR HGB CONC 29.2 g/dl (32.0-36.5); MEAN CORPUSCULAR VOLUME 99.6 fl (80.0-96.0); MONO # 0.3 10^3/uL (0.0-0.8); MONO % 8.9 % (0.0-5.0); NEUTROPHILS # 2.3 10^3/uL (1.8-7.7); NEUTROPHILS % 66.5 % (36.0-66.0); RED BLOOD COUNT 2.75 10^6/uL (4.00-5.40); WHITE BLOOD COUNT 3.5 10^3/uL (4.0-10.0)
[2019-02-01 12:45] LABS: PLATELET COUNT, AUTOMATED 77 10^3/uL (150-450)
[2019-02-01 13:37] LABS: ALBUMIN 2.7 GM/DL (3.2-5.2); BILIRUBIN,TOTAL 0.8 MG/DL (0.2-1.0); CALCIUM LEVEL 8.2 MG/DL (8.8-10.2); CREATININE FOR GFR 1.02 MG/DL (0.55-1.30); FREE T4 1.24 NG/DL (0.76-1.46); GLOMERULAR FILTRATION RATE 58.1 (>45); POTASSIUM SERUM 4.5 MEQ/L (3.5-5.1); THYROID STIMULATING HORMONE 1.86 uIU/ML (0.358-3.740); TOTAL PROTEIN 6.4 GM/DL (6.4-8.2)
== END ==
LOC: M SFHCLERA 09:12
PROVIDERS: ATTEND Family Medicine
DX: D64.9 Anemia, unspecified (principal); K75.81 Nonalcoholic steatohepatitis (NASH)

== ENCOUNTER → 2019-02-01 | Outpatient (CLI) | payer OTHER ==
[~2019-02-01] MED LIST changes: +MIDO5TA PO
--- NOTE | 2019-02-11 16:27 | REP ---
Ultrasound-guided paracentesis The procedure was performed by ARMANDO Shepherd, under the direct supervision of Dr. Cardoza. The risks and benefits of the procedure were explained to the patient and informed consent was obtained both verbally and written. Directly prior to the start of the procedure, a formal timeout was completed in the procedure room. Under ultrasound guidance, the largest pocket of fluid in the left flank was localized and skin was marked. The skin was then prepped and draped in a sterile fashion. 10 ml of 1% lidocaine was used as a local anesthetic. Using ultrasound guidance, an 8-Albanian multi side-hole catheter was inserted using trocar technique. 6,900 mL of pink colored fluid was withdrawn and discarded. The patient tolerated the procedure well and there were no immediate complications. After the appropriate monitored convalescence the patient was discharged from the department. Reviewed by ARMANDO Montez 02/01/2019 03:00 P Electronically Signed by Avelino Cardoza MD 02/11/2019 04:19 P
== END ==
LOC: M RADPRO 13:05
PROVIDERS: ATTEND Family Medicine
DX: K75.81 Nonalcoholic steatohepatitis (NASH) (principal); Z79.4 Long term (current) use of insulin; Z79.82 Long term (current) use of aspirin; Z79.899 Other long term (current) drug therapy; Z91.048 Other nonmedicinal substance allergy status; Z88.8 Allergy status to other drugs, medicaments and biological substances

== ENCOUNTER 2019-02-02 01:36 | Inpatient (IN) | payer OTHER ==
[~2019-02-02] VITALS: Ht 154.9 cm; Wt 105.4 kg
[~2019-02-02 01:36] MED LIST changes: -AMIT10TA PO; -IRON27TA2 PO; -MIDO5TA PO; -ROPI2TAB PO
[2019-02-02 02:26] LABS: BASO % 0.9 % (0.0-1.0); EOS # 0.2 10^3/uL (0.0-0.50); EOS % 4.6 % (0.0-3.0); HEMOGLOBIN 8.1 g/dl (12.0-15.5); LYMPH # 0.4 10^3/uL (1.5-4.5); LYMPH % 10.9 % (24.0-44.0); MEAN CORPUSCULAR HEMOGLOBIN 29.3 pg (27.0-33.0); MEAN CORPUSCULAR VOLUME 97.8 fl (80.0-96.0); MONO # 0.3 10^3/uL (0.0-0.8); NEUTROPHILS # 2.6 10^3/uL (1.8-7.7); NEUTROPHILS % 75.3 % (36.0-66.0); RED BLOOD COUNT 2.76 10^6/uL (4.00-5.40); WHITE BLOOD COUNT 3.5 10^3/uL (4.0-10.0)
[2019-02-02 02:33] LABS: PLATELET COUNT, AUTOMATED 78 10^3/uL (150-450)
[2019-02-02 02:52] LABS: ALBUMIN 2.6 GM/DL (3.2-5.2); BILIRUBIN,DIRECT 0.2 MG/DL (0.0-0.2); BILIRUBIN,TOTAL 0.6 MG/DL (0.2-1.0); TOTAL PROTEIN 6.4 GM/DL (6.4-8.2)
[2019-02-02] MEDS ORDERED: SPIR100T3 PO (04:03)
[2019-02-02] MEDS ORDERED: NADO20TA PO (04:03)
[2019-02-02 04:11] LABS: CALCIUM LEVEL 8.2 MG/DL (8.8-10.2); CREATININE FOR GFR 1.28 MG/DL (0.55-1.30); GLOMERULAR FILTRATION RATE 44.7 (>45); POTASSIUM SERUM 4.8 MEQ/L (3.5-5.1)
[2019-02-02] MEDS ORDERED: HumaLOG INSULIN (NovoLOG) PER UNIT SC SCH (07:30)
[2019-02-02 08:20] VITALS: BP 129/60
[2019-02-02] MEDS: SPIRONOLACTONE 50 MG TAB PO SCH ×2 (08:52→21:00)
[2019-02-02] MEDS: ESCITALOPRAM OXALATE 10 MG TAB (LEXAPRO) PO SCH (08:52)
[2019-02-02] MEDS: FUROSEMIDE 20 MG TAB PO SCH ×2 (08:53→21:16)
[2019-02-02] MEDS: FUROSEMIDE 40 MG TAB PO SCH ×2 (08:53→21:16)
[2019-02-02] MEDS: FERROUS SULFATE 325MG TAB PO SCH ×2 (08:53→21:16)
[2019-02-02] MEDS: PANTOPRAZOLE 40MG TAB (PROTONIX) PO SCH (08:53)
[2019-02-02] MEDS: ASPIRIN 81 MG ENTERIC TAB PO SCH (08:53)
[2019-02-02] MEDS: LEVEMIR (INSULIN DETEMIR) 1 UNITS/0.01ML SC SCH ×2 (08:54→21:18)
[2019-02-02] MEDS: rOPINIRole 2MG TAB PO SCH ×2 (10:25→21:16)
[2019-02-02] MEDS: NADOLOL 20MG TABLET PO SCH (10:26)
[2019-02-02] MEDS: HumaLOG INSULIN (NovoLOG) PER UNIT SC SCH ×3 (12:48→21:18)
[2019-02-02 14:00] VITALS: BP 96/46
--- NOTE | 2019-02-02 14:53 | HPEPDOC ---
General Date of Admission Feb 02, 2019 at 06:00 Date of Service: Feb 02, 2019 Chief Complaint The patient is a 63-year-old female admitted with a reason for visit of Decompensated Hepatic Cirrhosis. Source: Patient, RN/MD, Old records Exam Limitations: No limitations Severity: Severe Associated Symptoms: Nausea, Vomiting History of Present Illness Patient is a 63-year-old female, past medical history significant for insulin- dependent DMII, End stage 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 She went to see Dr Cuba (GI) in [place] on 01/30/19 and she was scheduled for paracentesis and EGD on 02/20. She went to see her PMD on 02/01/19 and found her weight had gone up 7 lbs after dc from hospital. She was sent for a paracentesis on 02/01/19. 6.9 liters of fluid ere removed.. She went home after paracentesis . At home after she had a late lunch she started feeling nauseous with some retching and feeing very weak so came to the ED. Here patient complained of abdominal pain in the left side of the abdomen, dull aching in nature, intensity of about 5/10, without any radiation associated with some nausea and retching. Her abdomen is diffusely distended in spite of removal of 7 liters of fluid removal today. She was admitted for decompensated cirrhosis Home Medications Scheduled Aspirin (Aspirin EC) 81 Mg Tabec, 81 MG PO DAILY, (Reported) Calcium Carbonate/Vitamin D3 (Calcium 500-Vit D3 600 Tablet) 1 Tab Tab, 1 TAB PO BID, (Reported) Escitalopram Oxalate (Escitalopram Oxalate) 20 Mg Tab, 20 MG PO DAILY, (Reported) Esomeprazole Magnesium (Nexium) 40 Mg Cap, 40 MG PO DAILY, (Reported) Ferrous Sulfate (Ferrous Sulfate) 325 Mg Tab, 325 MG PO BID, (Reported) Furosemide (Lasix) 40 Mg Tab, 40 MG PO BID, (Reported) TAKES WITH 20MG TABLET, TOTAL OF 60MG BID Furosemide (Lasix) 20 Mg Tab, 20 MG PO BID, (Reported) TAKES WITH 40MG TABLET , TOTAL 60MG BID Insulin Glargine,Hum.rec.anlog (Lantus Solostar) 100 Unit/1 Ml Insuln.pen, 94 UNITS SC BID, (Reported) Insulin Human Lispro (Novolog) 100 U/Ml Inj, 1 DOSE SC ACHS, (Reported) PER SLIDING SCALE L.acidoph/L.bulg/B.bif/S.therm (Bacid Caplet) 1 Each Tablet, 1 TAB PO DAILY, (Reported) Meclizine HCl (Meclizine HCl) 25 Mg Tab, 25 MG PO BID, (Reported) Nadolol (Nadolol) 20 Mg Tablet, 20 MG PO DAILY, (Reported) HOLD FOR SYSTOLIC BP UNDER 105 Spironolactone (Spironolactone) 100 Mg Tablet, 100 MG PO BID, (Reported) HOLD FOR SYSTOLIC BP UNDER 105 Allergies Coded Allergies: TAPE (Verified Allergy, Mild, 01/23/19) acetaminophen (Verified Adverse Reaction, Intermediate, LIVER PROBLEMS, 01/23/19) candesartan (Verified Adverse Reaction, Intermediate, CHEST PAIN, 01/23/19) hydrochlorothiazide (Verified Adverse Reaction, Intermediate, CHEST PAIN, 01/23/19) ibuprofen (Verified Adverse Reaction, Intermediate, LIVER PROBLEMS, 01/23/19) Past Medical History Medical History Diabetes insulin dependent type 2 uncontrolled hyperglycemia History of anxiety with syncopal episodes Conversion 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 Cirrhosis of liver with ascites and thrombocytopenia,varices, portal hypertension Hyperammonemia without hepatic encephalopathy Chronic headache possibly migraines Chronic hypotension due to advanced cirrhosis. Depression Recurrent right pleural effusion S/P pleurodesis. Obstructive sleep apnea Vertigo Surgical History Hernia repair. Hysterectomy. Appendicitis. Lower back nerve block. A talc pleurodesis, 08/30 D&Cs. Negative cardiac catheterization Hysterectomy Bilateral rotator cuff repair. Right knee and left elbow arthroscopy Family History Father: , 60, heart disease Mother: , 72, heart disease, CVA, diabetes Siblings: 3 brothers, 1 sister, brother with previous [place] and diabetes Social History * Smoker: non-smoker Alcohol: Denies Drugs: denies A-FIB/CHADSVASC A-FIB History Current/History of A-Fib/PAF?: No Review of Systems Constitutional: Reports: Weakness; Denies: Chills, Fever, Night Sweats Eyes: Denies: Pain, Vision change ENT: Denies: Head Aches, Ear Pain, Dysphagia Cardiovascular: Reports: Lt Headedness; Denies: Chest Pain, Palpitations, Orthopnea, Paroxysmal Noc. Dyspnea, Edema, Other Symptoms Gastrointestinal: Reports: Nausea, Vomiting; Denies: Abdominal Pain, Diarrhea, Constipation Genitourinary: Denies: Dysuria, Frequency, Incontinence, Retention Hematologic: Denies: Bruising, Bleeding Excessively Musculoskeletal: Denies: Neck Pain, Back Pain, Joint Pain, Muscle Pain, Spasms Neurological: Denies: Weakness, Numbness, Change in speech, Confusion Physical Examination General Exam: Positive: Alert, Cooperative, No Acute Distress Eye Exam: Positive: PERRLA, Conjunctiva & lids normal, EOMI; Negative: Sclera icteric ENT Exam: Positive: Atraumatic, Mucous membr. moist/pink, Pharynx Normal Neck Exam: Positive: Supple; Negative: JVD, thyromegaly Chest Exam: Positive: Clear to auscultation, Normal air movement Heart Exam: Positive: Rate Normal, Regular Rhythm, Normal S1, Normal S2; Negative: Murmurs, Rubs Abdomen Exam: Positive: Normal bowel sounds, Soft, Other (massive ascitis); Negative: Tenderness Extremity Exam: Positive: Normal pulses; Negative: Clubbing, Cyanosis, Edema Skin Exam: Negative: Breakdown, Lesion Vital Signs Vital Signs Date Time Temp Pulse Resp B/P (MAP) Pulse Ox O2 Delivery O2 Flow Rate FiO2 02/02/19 06:23 78 18 108/57 (74) 98 Room Air 02/02/19 01:47 98.1 Laboratory Data Labs 24H Laboratory Tests 2 02/02/19 02:19: Immature Granulocyte % (Auto) 0.3, White Blood Count 3.5L, Red Blood Count 2.76L, Hemoglobin 8.1L, Hematocrit 27.0L, Mean Corpuscular Volume 97.8H, Mean Corpuscular Hemoglobin 29.3, Mean Corpuscular Hemoglobin Concent 30.0L, Red Cell Distribution Width 16.6H, Platelet Count 78L, Neutrophils (%) (Auto) 75.3H, Lymphocytes (%) (Auto) 10.9L, Monocytes (%) (Auto) 8.0H, Eosinophils (%) (Auto) 4.6H, Basophils (%) (Auto) 0.9, Neutrophils # (Auto) 2.6, Lymphocytes # (Auto) 0.4L, Monocytes # (Auto) 0.3, Eosinophils # (Auto) 0.2, Basophils # (Auto) 0.0, Nucleated Red Blood Cells % (auto) 0.0, Anion Gap 9, Glomerular Filtration Rate 44.7L, Calcium Level 8.2L, Aspartate Amino Transf (AST/SGOT) 39H, Alanine Aminotransferase (ALT/SGPT) 30, Alkaline Phosphatase 215H, Total Bilirubin 0.6, Direct Bilirubin 0.2, Total Protein 6.4, Albumin 2.6L, Albumin/Globulin Ratio 0.68L, Lipase 159 02/02/19 03:51: Ammonia 27 CBC/BMP Laboratory Tests 02/02/19 02:19 Red Blood Count 2.76 L, Mean Corpuscular Volume 97.8 H, Mean Corpuscular Hemoglobin 29.3, Mean Corpuscular Hemoglobin Concent 30.0 L, Red Cell Distribution Width 16.6 H, Neutrophils (%) (Auto) 75.3 H, Lymphocytes (%) (Auto) 10.9 L, Monocytes (%) (Auto) 8.0 H, Eosinophils (%) (Auto) 4.6 H, Basophils (%) (Auto) 0.9, Neutrophils # (Auto) 2.6, Lymphocytes # (Auto) 0.4 L, Monocytes # (Auto) 0.3, Eosinophils # (Auto) 0.2, Basophils # (Auto) 0.0 Assessment/Plan Patient is a 63-year-old female, past medical history significant for insulin- dependent DMII, End stage 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 She went to see Dr Cuba (GI) in [place] on 01/30/19 and she was scheduled for paracentesis and EGD on 02/20. She went to see her PMD on 02/01/19 and found her weight had gone up 7 lbs after dc from hospital. She was sent for a paracentesis on 02/01/19. 6.9 liters of fluid were removed.. She went home after paracentesis . At home after she had a late lunch she started feeling nauseous with some retching and feeing very weak so came to the ED. Here patient complained of some diffuse abdominal pain in the left side of the abdomen, dull aching in nature, intensity of about 4/10, without any radiation associated with some nausea and retching. Her abdomen is diffusely distended in spite of removal of 7 liters of fluid removal today. She was admitted for decompensated cirrhosis. Abdominal pain,nausea and vomiting May have had transient episode of hypotension after massive paracentesis causing the nausea and vomiting. Abdominal pain is probably due to distention from the ascites and the procedure itself However if she continues to have pain, nausea and vomiting have to evaluate for intraabdominal pathology. She also has diverticulosis of the sigmoid colon from prior CT scan so if pain and discomfort persists will have to rule out diverticulitis Would consider CT abdomen pelvis if persistent symptoms. End stage liver disease with thrombocytopenia, ascites, portal hypertension, varices, splenomegaly continue lasix with hold parameters and spironolactone. continue with nadolol with hold parameters. Pancytopenia this is probably due to advanced liver disease with splenomegaly stable , no signs of overt bleeding Hyperglycemia Continue Patient on levemir BID and Lispro Long acting dosage of insulin was increased Checked patient's home blood glucose monitor readings for the past 2 months. It is mostly in 300s and 400s. Last A1c on 01/04 is 9.9 H/O Syncopal and presyncopal episodes Had EEG in the past which was negative for any seizure focus though during the light stimulation during the test had a spell felt to be pseudoseizures /Psychogenic nonepileptic spells vs anxiety with syncopal episode Chronic Hypotension Patient possibly has chronic low normal Bps or hypotension because of advanced Cirrhosis. Which may be aggravated by being on diuretics , nadolol and uncontrolled sugars which may have been causing osmotic diuresis and making her intravascularly dehydrated. continue nadolol and lasix and spironolactone. Hyperammonemia due to END stage liver disease. However patient is not encephalopathic so will not treat. will repeat. History of Migraines no issues at present Morbid obesity with gait instability complicating care. Restless legs will try ropinirole. Plan / VTE VTE Prophylaxis Ordered?: Yes RAUDEL RUDOLPH MD Feb 02, 2019 07:47
[2019-02-02 18:15] VITALS: BP 107/50
[2019-02-02] MEDS: ONDANSETRON 4MG/2ML VIAL (J2405) IV SCH (18:54)
[2019-02-02 22:00] VITALS: BP 103/41
[2019-02-03] MEDS: ONDANSETRON 4MG/2ML VIAL (J2405) IV SCH ×4 (00:59→18:09)
[2019-02-03 05:53] LABS: BASO % 0.6 % (0.0-1.0); EOS # 0.2 10^3/uL (0.0-0.50); EOS % 5.3 % (0.0-3.0); HEMATOCRIT 25.6 % (36.0-47.0); HEMOGLOBIN 7.7 g/dl (12.0-15.5); LYMPH # 0.6 10^3/uL (1.5-4.5); MEAN CORPUSCULAR HEMOGLOBIN 28.4 pg (27.0-33.0); MEAN CORPUSCULAR HGB CONC 30.1 g/dl (32.0-36.5); MEAN CORPUSCULAR VOLUME 94.5 fl (80.0-96.0); MONO # 0.2 10^3/uL (0.0-0.8); MONO % 7.1 % (0.0-5.0); NEUTROPHILS # 2.2 10^3/uL (1.8-7.7); NEUTROPHILS % 68.7 % (36.0-66.0); RED BLOOD COUNT 2.71 10^6/uL (4.00-5.40); WHITE BLOOD COUNT 3.2 10^3/uL (4.0-10.0)
[2019-02-03 05:55] LABS: PLATELET COUNT, AUTOMATED 79 10^3/uL (150-450)
[2019-02-03 06:00] VITALS: BP 105/40
[2019-02-03 06:28] LABS: CALCIUM LEVEL 8.4 MG/DL (8.8-10.2); CREATININE FOR GFR 1.3 MG/DL (0.55-1.30); GLOMERULAR FILTRATION RATE 43.9 (>45); POTASSIUM SERUM 3.8 MEQ/L (3.5-5.1)
--- NOTE | 2019-02-03 06:52 | ECGEPIP ---
[facility] - ED Test Date: 2019-02-02 Pat Name: SAROJ JOHNSON Department: Room: [place] [address] Gender: Female [employer]: krish : 1955 Requested By: ALYSSA LOPEZ Order Number: [id number] Reading MD: Jay Flores Measurements Intervals [place] Rate: 68 P: LA: -1 QRS: QRSD: 102 T: 54 QT: 415 QTc: 444 Interpretive Statements SINUS RHYTHM SIMILAR TO 01/23/19 Electronically Signed on 02-03-2019 6:51:39 EDT by Jay Flores
[2019-02-03] MEDS: LEVEMIR (INSULIN DETEMIR) 1 UNITS/0.01ML SC SCH ×2 (08:22→21:36)
[2019-02-03] MEDS: HumaLOG INSULIN (NovoLOG) PER UNIT SC SCH ×4 (08:22→21:36)
[2019-02-03] MEDS: ESCITALOPRAM OXALATE 10 MG TAB (LEXAPRO) PO SCH (08:22)
[2019-02-03] MEDS: FERROUS SULFATE 325MG TAB PO SCH ×2 (08:22→21:37)
[2019-02-03] MEDS: rOPINIRole 2MG TAB PO SCH ×2 (08:22→21:37)
[2019-02-03] MEDS: ASPIRIN 81 MG ENTERIC TAB PO SCH (08:22)
[2019-02-03] MEDS: NADOLOL 20MG TABLET PO SCH (08:24)
[2019-02-03] MEDS: FUROSEMIDE 40 MG TAB PO SCH ×2 (08:24→21:37)
[2019-02-03] MEDS: PANTOPRAZOLE 40MG TAB (PROTONIX) PO SCH (08:24)
[2019-02-03] MEDS: FUROSEMIDE 20 MG TAB PO SCH ×2 (08:24→21:37)
[2019-02-03] MEDS: SPIRONOLACTONE 50 MG TAB PO SCH ×2 (08:25→21:37)
--- NOTE | 2019-02-03 13:32 | IPNPDOC ---
Date Seen The patient was seen on 02/03/19. Progress Note SUBJECTIVE: Ms. Palma is a 63-year-old female admitted with acute exacerbation of her chronic liver disease. She had redeveloped remarkable ascites to where she required paracentesis. Approximately 7 L of fluid was removed. She is currently reasonably comfortable although she complains of pain at the puncture site. OBJECTIVE PHYSICAL EXAMINATION: VITAL SIGNS: Please see below. GENERAL: Awake, alert, conversant HEENT: Neck is supple with no adenopathy or thyromegaly, oral mucosa is moist, she does not exhibit scleral or mucosal icterus CARDIOVASCULAR: Regular rate and rhythm, no appreciable murmur. RESPIRATORY: Clear to auscultation with good air movement, no wheezing. ABDOMINAL: Abdomen is greatly distended in shape from prior ascites load, there is tenderness to the puncture site to the left abdomen. Puncture site is dressed with no drainage, bowel tones are present EXTREMITIES: Patient does not exhibit any lower extremity edema, pedal pulses are palpable NEUROLOGICAL: No focal neuromotor or sensory deficit PSYCHOLOGICAL: Cognition, judgment and insight are moderately intact LABORATORY DATA, IMAGING STUDIES, MICROBIOLOGY: Please see below. Echocardiogram: . DVT prophylaxis ordered?: SCD ASSESSMENT/PLAN: 1. End-stage liver disease--manifested by thrombocytopenia, ascites, portal hypertension, pancytopenia, thrombocytopenia. She does not have hepatic encephalopathy currently. She continues on her medication regimen inclusive of atenolol, Lasix, spironolactone. She is status post paracentesis. Arrangements are being made for her to have scheduled paracentesis, perhaps weekly. 2. [id number] diabetes mellitus--the patient continues on basal bolus insulin. She is also receiving sliding scale. We are adjusting dosages for the patient's hyperglycemia.: DISPOSITION: . VS, [facility]&O, [facility] Vital Signs/I&O Vital Signs Date Time Temp Pulse Resp B/P (MAP) Pulse Ox O2 Delivery O2 Flow Rate FiO2 02/03/19 08:24 71 108/48 02/03/19 06:00 97.6 19 97 02/02/19 08:00 Room Air I&O- Last 24 Hours up to 6 AM 02/03/19 06:00 Intake Total 630 ml Output Total 1600 ml Balance -970 ml Laboratory Data 24H LABS Laboratory Tests 2 02/02/19 16:16: Bedside Glucose (Misc Panel) 317H 6/22/19 20:36: Bedside Glucose (Misc Panel) 322H 02/03/19 05:21: Immature Granulocyte % (Auto) 0.3, White Blood Count 3.2L, Red Blood Count 2.71L, Hemoglobin 7.7L, Hematocrit 25.6L, Mean Corpuscular Volume 94.5, Mean Corpuscular Hemoglobin 28.4, Mean Corpuscular Hemoglobin Concent 30.1L, Red Cell Distribution Width 16.4H, Platelet Count 79L, Neutrophils (%) (Auto) 68.7H, Lymphocytes (%) (Auto) 18.0L, Monocytes (%) (Auto) 7.1H, Eosinophils (%) (Auto) 5.3H, Basophils (%) (Auto) 0.6, Neutrophils # (Auto) 2.2, Lymphocytes # (Auto) 0.6L, Monocytes # (Auto) 0.2, Eosinophils # (Auto) 0.2, Basophils # (Auto) 0.0, Nucleated Red Blood Cells % (auto) 0.0, Immature Platelet Fraction 6.0, Anion Gap 6L, Glomerular Filtration Rate 43.9L, Blood Urea Nitrogen 13, Creatinine 1.30, Sodium Level 137, Potassium Level 3.8#, Chloride Level 105, Carbon Dioxide Level 26, Calcium Level 8.4L 02/03/19 11:32: Bedside Glucose (Misc Panel) 199H CBC/BMP Laboratory Tests 02/03/19 05:21 Red Blood Count 2.71 L, Mean Corpuscular Volume 94.5, Mean Corpuscular Hemoglobin 28.4, Mean Corpuscular Hemoglobin Concent 30.1 L, Red Cell Distribution Width 16.4 H, Neutrophils (%) (Auto) 68.7 H, Lymphocytes (%) (Auto) 18.0 L, Monocytes (%) (Auto) 7.1 H, Eosinophils (%) (Auto) 5.3 H, Basophils (%) (Auto) 0.6, Neutrophils # (Auto) 2.2, Lymphocytes # (Auto) 0.6 L, Monocytes # (Auto) 0.2, Eosinophils # (Auto) 0.2, Basophils # (Auto) 0.0, Calcium Level 8.4 L MELISSA WELCH MD Feb 03, 2019 13:31
[2019-02-03 14:00] VITALS: BP 98/50
[2019-02-03 22:00] VITALS: BP 118/62
[2019-02-04] MEDS: ONDANSETRON 4MG/2ML VIAL (J2405) IV SCH ×3 (01:08→12:16)
[2019-02-04 06:00] VITALS: BP 109/55
[2019-02-04 06:18] LABS: BASO % 0.3 % (0.0-1.0); EOS # 0.1 10^3/uL (0.0-0.50); EOS % 3.9 % (0.0-3.0); HEMATOCRIT 26.5 % (36.0-47.0); LYMPH # 0.6 10^3/uL (1.5-4.5); LYMPH % 15.8 % (24.0-44.0); MEAN CORPUSCULAR HEMOGLOBIN 28.4 pg (27.0-33.0); MEAN CORPUSCULAR HGB CONC 30.2 g/dl (32.0-36.5); MONO # 0.3 10^3/uL (0.0-0.8); MONO % 8.5 % (0.0-5.0); NEUTROPHILS # 2.5 10^3/uL (1.8-7.7); NEUTROPHILS % 71.5 % (36.0-66.0); RED BLOOD COUNT 2.82 10^6/uL (4.00-5.40); WHITE BLOOD COUNT 3.6 10^3/uL (4.0-10.0)
[2019-02-04 06:34] LABS: PLATELET COUNT, AUTOMATED 83 10^3/uL (150-450)
[2019-02-04 06:38] LABS: CALCIUM LEVEL 8.7 MG/DL (8.8-10.2); CREATININE FOR GFR 1.61 MG/DL (0.55-1.30); GLOMERULAR FILTRATION RATE 34.3 (>45); POTASSIUM SERUM 3.9 MEQ/L (3.5-5.1)
[2019-02-04] MEDS: rOPINIRole 2MG TAB PO SCH (08:16)
[2019-02-04] MEDS: HumaLOG INSULIN (NovoLOG) PER UNIT SC SCH ×2 (08:16→12:16)
[2019-02-04] MEDS: FERROUS SULFATE 325MG TAB PO SCH (08:16)
[2019-02-04] MEDS: ASPIRIN 81 MG ENTERIC TAB PO SCH (08:16)
[2019-02-04] MEDS: SPIRONOLACTONE 50 MG TAB PO SCH ×2 (08:17→08:19)
[2019-02-04] MEDS: ESCITALOPRAM OXALATE 10 MG TAB (LEXAPRO) PO SCH (08:17)
[2019-02-04] MEDS: LEVEMIR (INSULIN DETEMIR) 1 UNITS/0.01ML SC SCH (08:19)
[2019-02-04] MEDS: FUROSEMIDE 40 MG TAB PO SCH (08:19)
[2019-02-04] MEDS: FUROSEMIDE 20 MG TAB PO SCH (08:19)
[2019-02-04] MEDS: PANTOPRAZOLE 40MG TAB (PROTONIX) PO SCH (08:19)
[2019-02-04 08:20] VITALS: BP 92/54
[2019-02-04] MEDS: NADOLOL 20MG TABLET PO SCH (08:20)
[2019-02-04] MEDS ORDERED: ROPI2TAB PO (12:04)
[2019-02-04] MEDS ORDERED: diphenhydrAMINE 25 MG CAP PO PRN (12:15)
[2019-02-04 14:00] VITALS: BP 106/52
--- NOTE | 2019-02-04 19:21 | DS.PDOC ---
Discharge Summary General Date of Admission Feb 02, 2019 at 06:00 Date of Discharge February 04 2019 Primary Care Physician: SUZY MATHEW MD Discharge Summary PROCEDURES PERFORMED DURING STAY: None. ADMITTING DIAGNOSES: 1. Decompensated liver cirrhosis. DISCHARGE DIAGNOSES: 1. Decompensated liver cirrhosis due to HICKS, recurrent massive ascites, thrombocytopenia, portal hypertension, hepatic encephalopathy,[id number] diabetes mellitus, depression with anxiety features, conversion disorder, obstructive sleep apnea, morbid obesity. COMPLICATIONS/CHIEF COMPLAINT: Decompensated Hepatic Cirrhosis. HISTORY OF PRESENT ILLNESS/HOSPITAL COURSE: This 63-year-old female with a history of HICKS and liver disease who requires frequent paracentesis. She had again had paracentesis for massive ascites. She is admitted with decompensated liver disease. She had weakness and nausea. She also had some confusion. Patient was admitted to the medical floor. Manifestations of her liver disease include massive ascites, thrombocytopenia, portal hypertension. She also had some ence phalopathy without hyperammonemia. She was complaining of some discomfort at the site of her paracentesis, but this improved. Her mentation improved as well, although I suspect it is diminished at baseline. The patient apparently undergoes paracentesis of about 7 L of fluid every week or so. Pleurx catheter may be considered; patient did have what in the past that did become infected however.. DISCHARGE MEDICATIONS: Please see below. ALLERGIES: Please see below. PHYSICAL EXAMINATION ON DISCHARGE: VITAL SIGNS: Please see below. ENERAL: Awake, alert, conversant HEENT: Neck is supple with no adenopathy or thyromegaly, oral mucosa is moist, she does not exhibit scleral or mucosal icterus CARDIOVASCULAR: Regular rate and rhythm, no appreciable murmur. RESPIRATORY: Clear to auscultation with good air movement, no wheezing. ABDOMINAL: Abdomen is greatly distended in shape from prior ascites load, there is tenderness to the puncture site to the left abdomen. Puncture site is dressed with no leakage, bowel tones are present EXTREMITIES: Patient does not exhibit any lower extremity edema, pedal pulses are palpable NEUROLOGICAL: No focal neuromotor or sensory deficit PSYCHOLOGICAL: Cognition, judgment and insight are moderately intact for now LABORATORY DATA: Please see below. IMAGING: PROGNOSIS: ACTIVITY: As tolerated. DIET: No added salt DISCHARGE PLAN: The patient is stable for discharge to home. She would like home health services for assistance with bathing and light housework. She is to follow-up with her primary care provider Suzy Mathew within the week. She may a lso follow-up with her bullet charging machine operator. This is to discuss possible repeat placement of Pleurx catheter; again, please note patient has had prior complication of infection. There have been no changes to her medications. DISPOSITION: Home, home health services DISCHARGE CONDITION: Stable. TIME SPENT ON DISCHARGE: Greater than 40 minutes. Vital Signs/I&Os Vital Signs Date Time Temp Pulse Resp B/P (MAP) Pulse Ox O2 Delivery O2 Flow Rate FiO2 02/04/19 14:00 97.5 69 17 106/52 (70) 93 02/02/19 08:00 Room Air I&O- Last 24 Hours up to 6 AM 02/04/19 06:00 Intake Total 1470 ml Output Total 2350 ml Balance -880 ml Laboratory Data Labs 24H Laboratory Tests 2 02/03/19 20:27: Bedside Glucose (Misc Panel) 284H 02/04/19 05:14: Bedside Glucose (Misc Panel) 228H 02/04/19 05:31: Immature Granulocyte % (Auto) 0.0, White Blood Count 3.6L, Red Blood Count 2.82L, Hemoglobin 8.0L, Hematocrit 26.5L, Mean Corpuscular Volume 94.0, Mean Corpuscular Hemoglobin 28.4, Mean Corpuscular Hemoglobin Concent 30.2L, Red Cell Distribution Width 16.5H, Platelet Count 83L, Neutrophils (%) (Auto) 71.5H, Lymphocytes (%) (Auto) 15.8L, Monocytes (%) (Auto) 8.5H, Eosinophils (%) (Auto) 3.9H, Basophils (%) (Auto) 0.3, Neutrophils # (Auto) 2.5, Lymphocytes # (Auto) 0.6L, Monocytes # (Auto) 0.3, Eosinophils # (Auto) 0.1, Basophils # (Auto) 0.0, Nucleated Red Blood Cells % (auto) 0.0, Immature Platelet Fraction 6.1, Anion Gap 6L, Glomerular Filtration Rate 34.3L, Blood Urea Nitrogen 16, Creatinine 1.61H, Sodium Level 136, Potassium Level 3.9, Chloride Level 104, Carbon Dioxide Level 26, Calcium Level 8.7L 02/04/19 11:55: Bedside Glucose (Misc Panel) 202H CBC/BMP Laboratory Tests 02/04/19 05:31 Red Blood Count 2.82 L, Mean Corpuscular Volume 94.0, Mean Corpuscular Hemogl obin 28.4, Mean Corpuscular Hemoglobin Concent 30.2 L, Red Cell Distribution Width 16.5 H, Neutrophils (%) (Auto) 71.5 H, Lymphocytes (%) (Auto) 15.8 L, Monocytes (%) (Auto) 8.5 H, Eosinophils (%) (Auto) 3.9 H, Basophils (%) (Auto) 0.3, Neutrophils # (Auto) 2.5, Lymphocytes # (Auto) 0.6 L, Monocytes # (Auto) 0.3, Eosinophils # (Auto) 0.1, Basophils # (Auto) 0.0, Calcium Level 8.7 L FSBS Laboratory Tests Test 02/03/19 20:27 02/04/19 05:14 02/04/19 11:55 Range/Units Bedside Glucose (Misc Panel) 284 228 202 80-115 MG/DL Discharge Medications Scheduled Aspirin (Aspirin EC) 81 Mg Tabec, 81 MG PO DAILY, (Reported) Calcium Carbonate/Vitamin D3 (Calcium 500-Vit D3 600 Tablet) 1 Tab Tab, 1 TAB PO BID, (Reported) Escitalopram Oxalate (Escitalopram Oxalate) 20 Mg Tab, 20 MG PO DAILY, (Reported) Esomeprazole Magnesium (Nexium) 40 Mg Cap, 40 MG PO DAILY, (Reported) Ferrous Sulfate (Ferrous Sulfate) 325 Mg Tab, 325 MG PO BID, (Reported) Furosemide (Lasix) 40 Mg Tab, 40 MG PO BID, (Reported) TAKES WITH 20MG TABLET, TOTAL OF 60MG BID Furosemide (Lasix) 20 Mg Tab, 20 MG PO BID, (Reported) TAKES WITH 40MG TABLET , TOTAL 60MG BID Insulin Glargine,Hum.rec.anlog (Lantus Solostar) 100 Unit/1 Ml Insuln.pen, 94 UNITS SC BID, (Reported) Insulin Human Lispro (Novolog) 100 U/Ml Inj, 1 DOSE SC ACHS, (Reported) PER SLIDING SCALE L.acidoph/L.bulg/B.bif/S.therm (Bacid Caplet) 1 Each Tablet, 1 TAB PO DAILY, (Reported) Meclizine HCl (Meclizine HCl) 25 Mg Tab, 25 MG PO BID, (Reported) Nadolol (Nadolol) 20 Mg Tablet, 20 MG PO DAILY, (Reported) HOLD FOR SYSTOLIC BP UNDER 105 Ropinirole HCl (Ropinirole HCl) 2 Mg Tablet, 2 MG PO BID Spironolactone (Spironolactone) 100 Mg Tablet, 100 MG PO BID, (Reported) HOLD FOR SYSTOLIC BP UNDER 105 Allergies Coded Allergies: TAPE (Verified Allergy, Mild, 01/23/19) acetaminophen (Verified Adverse Reaction, Intermediate, LIVER PROBLEMS, 01/23/19) candesartan (Verified Adverse Reaction, Intermediate, CHEST PAIN, 01/23/19) hydrochlorothiazide (Verified Adverse Reaction, Intermediate, CHEST PAIN, 01/23/19) ibuprofen (Verified Adverse Reaction, Intermediate, LIVER PROBLEMS, 01/23/19) MELISSA WELCH MD Feb 04, 2019 19:21
== END 2019-02-04 15:48 | disposition home health service (06) | DRG 441 ==
LOC: M ED 01:36 → M ED INP 06:00 → M MSPAV 08:13
PROVIDERS: ADMIT Internal Medicine Nephrology; ATTEND Internal Medicine
DX: K75.81 Nonalcoholic steatohepatitis (NASH) (principal); K72.00 Acute and subacute hepatic failure without coma; R18.8 Other ascites; K76.6 Portal hypertension; I85.10 Secondary esophageal varices without bleeding; D61.818 Other pancytopenia; K74.60 Unspecified cirrhosis of liver; D69.6 Thrombocytopenia, unspecified; E11.65 Type 2 diabetes mellitus with hyperglycemia; G47.33 Obstructive sleep apnea (adult) (pediatric); E66.01 Morbid (severe) obesity due to excess calories; F41.9 Anxiety disorder, unspecified; F32.9 Major depressive disorder, single episode, unspecified; Z79.82 Long term (current) use of aspirin; Z79.899 Other long term (current) drug therapy; Z88.6 Allergy status to analgesic agent; Z88.8 Allergy status to other drugs, medicaments and biological substances; E78.5 Hyperlipidemia, unspecified; F44.5 Conversion disorder with seizures or convulsions; I95.9 Hypotension, unspecified; R26.89 Other abnormalities of gait and mobility; G25.81 Restless legs syndrome

== ENCOUNTER 2019-02-07 11:14 | Inpatient (IN) | payer OTHER ==
[~2019-02-07] VITALS: Ht 154.9 cm; Wt 98.9 kg
[~2019-02-07 11:14] MED LIST changes: +ROPI2TAB PO
[2019-02-07] MEDS ORDERED: AMIT10TA PO (11:43)
[2019-02-07] MEDS ORDERED: IRON27TA2 PO (11:43)
[2019-02-07 12:12] LABS: BASO % 0.8 % (0.0-1.0); EOS # 0.3 10^3/uL (0.0-0.50); EOS % 7.6 % (0.0-3.0); HEMATOCRIT 29.1 % (36.0-47.0); HEMOGLOBIN 8.9 g/dl (12.0-15.5); LYMPH # 0.7 10^3/uL (1.5-4.5); LYMPH % 17.5 % (24.0-44.0); MEAN CORPUSCULAR HEMOGLOBIN 30.1 pg (27.0-33.0); MEAN CORPUSCULAR HGB CONC 30.6 g/dl (32.0-36.5); MEAN CORPUSCULAR VOLUME 98.3 fl (80.0-96.0); MONO # 0.4 10^3/uL (0.0-0.8); MONO % 9.9 % (0.0-5.0); NEUTROPHILS # 2.5 10^3/uL (1.8-7.7); NEUTROPHILS % 63.9 % (36.0-66.0); RED BLOOD COUNT 2.96 10^6/uL (4.00-5.40); WHITE BLOOD COUNT 3.8 10^3/uL (4.0-10.0)
[2019-02-07 12:14] LABS: PLATELET COUNT, AUTOMATED 85 10^3/uL (150-450)
[2019-02-07 12:20] LABS: INR 1.28; PROTHROMBIN TIME 15.8 SECONDS (11.8-14.0)
[2019-02-07] MEDS ORDERED: NS 1,000 ML IV SCH ×2 (12:45→22:00)
[2019-02-07 12:46] LABS: ALBUMIN 2.7 GM/DL (3.2-5.2); ALT/SGPT 23 U/L (12-78); BILIRUBIN,DIRECT 0.3 MG/DL (0.0-0.2); BILIRUBIN,TOTAL 0.8 MG/DL (0.2-1.0); BLOOD UREA NITROGEN 19 MG/DL (7-18); CALCIUM LEVEL 8.3 MG/DL (8.8-10.2); CARBON DIOXIDE LEVEL 31 MEQ/L (21-32); CHLORIDE LEVEL 103 MEQ/L (98-107); CK-MB VALUE MASS < 1.0 NG/ML (<3.6); CPK CREATINE PHOSPHOKINASE 34 U/L (26-192); CREATININE FOR GFR 1.31 MG/DL (0.55-1.30); GLOMERULAR FILTRATION RATE 43.5 (>45); GLUCOSE, FASTING 305 MG/DL (70-100); LIPASE 157 U/L (73-393); MB/CK RELATIVE INDEX 2.94 (< OR =4); SODIUM LEVEL 140 MEQ/L (136-145); TOTAL PROTEIN 6.2 GM/DL (6.4-8.2); TROPONIN I < 0.02 NG/ML (< 0.10)
[2019-02-07] MEDS ORDERED: ISOVUE-370 76% 100ML VIAL (Q9967) As Ordered ONE (12:49)
[2019-02-07] MEDS ORDERED: ONDANSETRON 4MG/2ML VIAL (J2405) IV ONE (13:15)
--- NOTE | 2019-02-07 13:29 | REP ---
Clinical: Abdominal pain and distension. Technique: Axial contrast enhanced images from the lung bases to the pubic symphysis using 100 ml Isovue 370 intravenous contrast material with coronal and sagittal re-formations. Comparison: 06/28/2018. Findings: Lung bases demonstrate a small partially loculated right pleural effusion with relatively decreased when compared to prior examination. A moderate amount of ascites is appreciated which is similar in quantity and distribution to prior examination including fluid extending into the periumbilical hernia and adjacent subcutaneous tissue. Subcutaneous interstitial edema is also identified and appears slightly increased when compared to prior examination. No free air to suggest perforation. The liver demonstrates a very subtle micronodular contour along with splenomegaly, collateral vessels and recanalized umbilical vein consistent with cirrhosis and portal venous hypertension. No focal hepatic, splenic, pancreatic lesion identified. Cholelithiasis noted without acute cholecystitis. Bilateral adrenal glands are normal. Kidneys demonstrate cortical atrophic change without perinephric stranding or hydronephrosis. The enteric system is without obstruction or acute inflammatory process. Scattered colonic and sigmoid diverticulosis noted. Pelvis demonstrates normal bladder and age-appropriate uterus/adnexa. Abdominal aorta without aneurysm or dissection. No adenopathy. Musculoskeletal structures demonstrate age-related degenerative changes. Impression: 1. Small partially loculated right pleural effusion decreased from prior examination. 2. Cirrhosis with portal venous hypertension including moderate ascites and moderate edematous infiltration to the subcutaneous tissues. Splenomegaly and portal-venous collateral circulation including recanalized umbilical vein noted. 3. Cholelithiasis. 4. Diverticulosis. Electronically Signed by Pk Hansen MD 02/07/2019 01:20 P
[2019-02-07] MEDS ORDERED: MECLIZINE 25 MG TABLET PO ONE (14:00)
[2019-02-07] MEDS ORDERED: ROPI2TAB PO (14:19)
--- NOTE | 2019-02-07 14:43 | HPEPDOC ---
General Date of Admission 02/07/2019 Date of Service: Feb 07, 2019 Attending Physician: YESI MCMAHON MD Chief Complaint The patient is a 63-year-old female admitted with a reason for visit of Syncope. History of Present Illness Patient is a 63-year-old female, past medical history significant for nonalcoholic steatohepatitis and end-stage liver disease requiring frequent paracentesis,insulin-dependent diabetes mellitus, morbid obesity, hypertension, portal hypertension, presenting to the emergency room on account of shortness of breath and abdominal pain. Patient was recently discharged from this facility a week ago. During that hospitalization, she had paracentesis and drainage of 7 L ascites fluid. At discharge, patient states after dressing was taken off, she started noticing significant drainage from paracentesis site. Drainage was soaking through her underwear and any dressing she put on it. She called and informed her primary care physician who called her ga stroenterologist at [facility] (Dr. Cuba). Last night, however drainage was so much that patient took her granddaughter's colostomy bag and placed over drainage site. Today, patient had multiple episodes of syncope and called her primary care physician who recommended coming to the emergency room. On arrival, blood pressure was 109/49, blood pressure further trended down to systolic blood pres sure of 80s and map of 45. Preliminary investigative studies in the emergency room with CT abdomen and pelvis, demonstrated moderate ascites with edema, small partially loculated right pleural effusion, decreased from prior examination. Laboratory data was significant for hemoglobin of 8.9, platelets of 85, GFR 43, creatinine 1.3, albumin globulin ratio 0.77 with an albumin level of 2.7 and total protein of 6.2. Blood glucose was also elevated at 305. This was not fasting blood glucose. Hospitalist team was endorsed for evaluation and possible admission for further management Home Medications Scheduled Aspirin (Aspirin EC) 81 Mg Tabec, 81 MG PO DAILY, (Reported) Calcium Carbonate/Vitamin D3 (Calcium 500-Vit D3 600 Tablet) 1 Tab Tab, 1 TAB PO BID, (Reported) Escitalopram Oxalate (Escitalopram Oxalate) 20 Mg Tab, 20 MG PO DAILY, (Reported) Esomeprazole Magnesium (Nexium) 40 Mg Cap, 40 MG PO DAILY, (Reported) Ferrous Sulfate (Ferrous Sulfate) 325 Mg Tab, 325 MG PO BID, (Reported) Furosemide (Lasix) 40 Mg Tab, 40 MG PO BID, (Reported) TAKES WITH 20MG TABLET, TOTAL OF 60MG BID Furosemide (Lasix) 20 Mg Tab, 20 MG PO BID, (Reported) TAKES WITH 40MG TABLET , TOTAL 60MG BID Insulin Glargine,Hum.rec.anlog (Lantus Solostar) 100 Unit/1 Ml Insuln.pen, 94 UNITS SC BID, (Reported) Insulin Human Lispro (Novolog) 100 U/Ml Inj, 1 DOSE SC ACHS, (Reported) PER SLIDING SCALE Meclizine HCl (Meclizine HCl) 25 Mg Tab, 25 MG PO BID, (Reported) Nadolol (Nadolol) 20 Mg Tablet, 20 MG PO DAILY, (Reported) HOLD FOR SYSTOLIC BP UNDER 105 Ropinirole HCl (Ropinirole HCl) 2 Mg Tablet, 2 MG PO BID, (Reported) Spironolactone (Spironolactone) 100 Mg Tablet, 100 MG PO BID, (Reported) HOLD FOR SYSTOLIC BP UNDER 105 Scheduled PRN Amitriptyline HCl (Amitriptyline HCl) 10 Mg Tablet, 10 MG PO PRN PRN for INSOMNIA, (Reported) Allergies Coded Allergies: TAPE (Verified Allergy, Mild, 01/23/19) acetaminophen (Verified Adverse Reaction, Intermediate, LIVER PROBLEMS, 01/23/19) candesartan (Verified Adverse Reaction, Intermediate, CHEST PAIN, 01/23/19) hydrochlorothiazide (Verified Adverse Reaction, Intermediate, CHEST PAIN, 01/23/19) ibuprofen (Verified Adverse Reaction, Intermediate, LIVER PROBLEMS, 01/23/19) Past Medical History Medical History Insulin-dependent type 2 diabetes mellitus. Diverticulosis. Portal hypertension Splenomegaly. [place] with End-stage liver disease Obesity Hyperlipidemia Thrombocytopenia Anxiety and depression Surgical History Appendectomy Hysterectomy. Bilateral shoulder, surgery Left elbow surgery Right knee surgery Multiple D&C Family History Father: EtOH abuse Mother: Diabetes mellitus. Sibling: Diabetes mellitus Social History * Smoker: Denies Alcohol: Denies Drugs: denies A-FIB/CHADSVASC A-FIB History Current/History of A-Fib/PAF?: No Current PO Anticoag Therapy: No Review of Systems Other systems A 10 point pertinent review of systems was completed, negative except as stated in the history of presenting illness. Physical Examination Other physical findings GENERAL: morbidly obese female in no acute distress SKIN : Warm, drainage to left lower quadrant paracentesis site with colostomy bag. HEENT: Atraumatic, normocephalic, PERRL, moist mucous membrane CARDIOVASCULAR: Regular rate and rhythm, S1S2, no JVD, no edema, distal pulses + and palpable RESP: CTAB, no accessory muscle use noted ABDOMEN: BS+, distended with some tenderness, yellow drainage is present to left lower quadrant paracentesis site with colostomy bag. MS: no joint deformities NEURO: Alert and oriented x 3, CN2-12 grossly intact PSYCH: no anxiety or agitation, appropriate mood and affect Vital Signs Vital Signs Date Time Temp Pulse Resp B/P (MAP) Pulse Ox O2 Delivery O2 Flow Rate FiO2 02/07/19 14:25 17 02/07/19 14:21 95/52 (66) 02/07/19 14:14 58 99 02/07/19 11:29 96.8 Room Air Laboratory Data Labs 24H Laboratory Tests 2 02/07/19 11:59: Immature Granulocyte % (Auto) 0.3, White Blood Count 3.8L, Red Blood Count 2.96L, Hemoglobin 8.9L, Hematocrit 29.1L, Mean Corpuscular Volume 98.3H, Mean Corpuscular Hemoglobin 30.1, Mean Corpuscular Hemoglobin Concent 30.6L, Red Cell Distribution Width 18.6H, Platelet Count 85L, Neutrophils (%) (Auto) 63.9, Lymphocytes (%) (Auto) 17.5L, Monocytes (%) (Auto) 9.9H, Eosinophils (%) (Auto) 7.6H, Basophils (%) (Auto) 0.8, Neutrophils # (Auto) 2.5, Lymphocytes # (Auto) 0.7L, Monocytes # (Auto) 0.4, Eosinophils # (Auto) 0.3, Basophils # (Auto) 0.0, Nucleated Red Blood Cells % (auto) 0.0, Immature Platelet Fraction 5.8, Prothr ombin Time 15.8H, Prothromb Time International Ratio 1.28, Anion Gap 6L, Glomerular Filtration Rate 43.5L, Calcium Level 8.3L, Aspartate Amino Transf (AST/SGOT) 28, Alanine Aminotransferase (ALT/SGPT) 23, Alkaline Phosphatase 170H, Total Bilirubin 0.8, Direct Bilirubin 0.3H, Total Creatine Kinase 34, Creatine Kinase MB < 1.0, Creatine Kinase MB Relative Index 2.94, Troponin I < 0.02, Total Protein 6.2L, Albumin 2.7L, Albumin/Globulin Ratio 0.77L, Lipase 157 CBC/BMP Laboratory Tests 02/07/19 11:59 Red Blood Count 2.96 L, Mean Corpuscular Volume 98.3 H, Mean Corpuscular Hem oglobin 30.1, Mean Corpuscular Hemoglobin Concent 30.6 L, Red Cell Distribution Width 18.6 H, Neutrophils (%) (Auto) 63.9, Lymphocytes (%) (Auto) 17.5 L, Monocytes (%) (Auto) 9.9 H, Eosinophils (%) (Auto) 7.6 H, Basophils (%) (Auto) 0.8, Neutrophils # (Auto) 2.5, Lymphocytes # (Auto) 0.7 L, Monocytes # (Auto) 0.4, Eosinophils # (Auto) 0.3, Basophils # (Auto) 0.0 Assessment/Plan End stage liver disease -With recurrent ascites, thrombocytopenia, ascites, portal hypertension, varices, splenomegaly -Hemodynamically unstable with hypotension and recurrent syncope -Has been discussed with Dr. Aguilar geophysical computer who plans to see patient to make further recommendations -Admit to ICU for management of hypotension -Albumin transfusion given patient's low albumin status and poor oncotic pressure -Continue IV fluids, normal saline at 100 mL per hour Insulin-dependent diabetes mellitus -Caloric controlled diet -Finger stick checks prior to meals and at bedtime -Coverage with insulin sliding scale protocol -Last A1c on 01/04 is 9.9 Recurrent syncope -Has been evaluated during prior admission found likely to be related to end- stage liver disease and hypotension -Fall precautions -Hold blood pressure medications at this time Hypotension -Likely due to osmotic diuresis -Hold antihypertensives -Transfuse albumin -ICU admission DVT prophylaxis -Contraindicated in the setting of thrombocytopenia -Will use TEDs/SCDs Plan / VTE VTE Prophylaxis Ordered?: Yes THERESA PLUMMER Feb 07, 2019 14:43
[2019-02-07] MEDS ORDERED: DEXTROSE 50% 50 ML SYRINGE IV PRN (18:30)
[2019-02-07] MEDS ORDERED: AMITRIPTYLINE 10 MG TAB PO PRN (18:30)
[2019-02-07] MEDS ORDERED: GLUCAGON FOR INJ 1 MG VIAL (J1610) SC PRN (18:30)
[2019-02-07] MEDS ORDERED: GLUCOSE 4 GM CHEW TABLET PO PRN (18:30)
--- NOTE | 2019-02-07 20:19 | ECGEPIP ---
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
[2019-02-07 20:30] VITALS: BP 93/47
[2019-02-07 21:00] VITALS: BP 89/45
[2019-02-07] MEDS: FERROUS SULFATE 325MG TAB PO SCH (21:29)
[2019-02-07] MEDS: HumaLOG INSULIN (NovoLOG) PER UNIT SC SCH (21:29)
[2019-02-07] MEDS: LEVEMIR (INSULIN DETEMIR) 1 UNITS/0.01ML SC SCH (21:30)
[2019-02-07 22:00] VITALS: BP 89/46
[2019-02-07] MEDS: rOPINIRole 1MG TAB PO SCH (22:49)
[2019-02-07 23:00] VITALS: BP 82/51
[2019-02-08] VITALS (19 sets, daily range): BP systolic 83–121; BP diastolic 44–61
[2019-02-08 05:31] LABS: HEMATOCRIT 26.8 % (36.0-47.0); MEAN CORPUSCULAR HEMOGLOBIN 28.9 pg (27.0-33.0); MEAN CORPUSCULAR HGB CONC 29.9 g/dl (32.0-36.5); MEAN CORPUSCULAR VOLUME 96.8 fl (80.0-96.0); RED BLOOD COUNT 2.77 10^6/uL (4.00-5.40); WHITE BLOOD COUNT 2.4 10^3/uL (4.0-10.0)
[2019-02-08 05:33] LABS: PLATELET COUNT, AUTOMATED 77 10^3/uL (150-450)
[2019-02-08 05:50] LABS: ALBUMIN 2.7 GM/DL (3.2-5.2); BILIRUBIN,TOTAL 0.5 MG/DL (0.2-1.0); CREATININE FOR GFR 1.21 MG/DL (0.55-1.30); GLOMERULAR FILTRATION RATE 47.7 (>45); POTASSIUM SERUM 3.7 MEQ/L (3.5-5.1); TOTAL PROTEIN 6.1 GM/DL (6.4-8.2)
[2019-02-08] MEDS: LEVEMIR (INSULIN DETEMIR) 1 UNITS/0.01ML SC SCH ×2 (08:59→20:16)
[2019-02-08] MEDS: HumaLOG INSULIN (NovoLOG) PER UNIT SC SCH ×4 (08:59→20:17)
[2019-02-08] MEDS: ESCITALOPRAM OXALATE 10 MG TAB (LEXAPRO) PO SCH (09:00)
[2019-02-08] MEDS: PANTOPRAZOLE 40MG TAB (PROTONIX) PO SCH (09:00)
[2019-02-08] MEDS: FERROUS SULFATE 325MG TAB PO SCH ×2 (09:00→20:16)
[2019-02-08] MEDS: rOPINIRole 1MG TAB PO SCH ×2 (09:00→20:16)
[2019-02-08 10:41] LABS: CK-MB VALUE MASS < 1.0 NG/ML (<3.6); CPK CREATINE PHOSPHOKINASE 26 U/L (26-192); MB/CK RELATIVE INDEX 3.85 (< OR =4); TROPONIN I < 0.02 NG/ML (< 0.10)
--- NOTE | 2019-02-08 12:51 | ECGEPIP ---
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 PRIOR ON 02/07/19 AT 11:45 Electronically Signed on 02-08-2019 12:51:04 EDT by Singh Izquierdo
--- NOTE | 2019-02-08 12:59 | IPNPDOC ---
Date Seen The patient was seen on 02/08/19. Progress Note SUBJECTIVE: Pt says she has been okay until 6 months ago when she started to have decompensated liver disease with recurrent ascites requiring multiple paracentesis with 7liters removed. She c/o increased abdominal distention, lower extremity edema, and weight gain. She was referred to [place] [facility] a few years ago, but has not followed up since. She sees Dr. Cuba in [place] and had not previously discussed the need for TIPS procedure for recurrent ascites. She denies any sob, afebrile, no chills , but has a loculated pleural effusion on CT chest. s/p albumin infusions last night, and MAP>65 . no c/o chest pain , pressure, but had a little dizziness this am. EKG no acute isc hemia, card tad negative. Awaiting GI Dr. Aguilar consultation. OBJECTIVE: PHYSICAL EXAMINATION VITALS: PLS SEE BELOW GENERAL: morbidly obese female in no acute distress SKIN : Warm, drainage to left lower quadrant paracentesis site with colostomy bag. HEENT: Atraumatic, normocephalic, PERRL, moist mucous membrane CARDIOVASCULAR: Regular rate and rhythm, S1S2, no JVD, no edema, distal pulses + and palpable RESP: CTAB, no accessory muscle use noted ABDOMEN: BS+, distended with some tenderness, yellow drainage is present to left lower quadrant paracentesis site with colostomy bag. MS: no joint deformities NEURO: Alert and oriented x 3, CN2-12 grossly intact PSYCH: no anxiety or agitation, appropriate mood and affect LABORATORY DATA, IMAGING STUDIES, MICROBIOLOGY: PLS SEE BELOW ASSESSMENT AND PLAN: Patient is a 63-year-old female, past medical history significant for nonalcoholic steatohepatitis and end-stage liver disease requiring frequent paracentesis,insulin-dependent diabetes mellitus, morbid obesity, hypertension, portal hypertension, presenting to the emergency room on account of shortness of breath and abdominal pain. Patient was recently discharged from this facility a week ago. During that hospitalization, she had paracentesis and drainage of 7 L ascites fluid. At discharge, patient states after dressing was taken off, she started noticing significant drainage from paracentesis site. Drainage was soaking through her underwear and any dressing she put on it. She called and informed her primary care physician who called her gastr oenterologist at [facility] (Dr. Cuba). Last night, however drainage was so much that patient took her granddaughter's colostomy bag and placed over drainage site. Today, patient had multiple episodes of syncope and called her primary care physician who recommended coming to the emergency room. On arrival, blood pressure was 109/49, blood pressure further trended down to systolic blood pressure of 80s and map of 45. Preliminary investigative studies in the emergency room with CT abdomen and pelvis, demonstrated moderate ascites with edema, small partially loculated right pleural effusion, decreased from prior examination. Laboratory data was significant for hemoglobin of 8.9, platelets of 85, GFR 43, creatinine 1.3, albumin globulin ratio 0.77 with an albumin level of 2.7 and total protein of 6.2. Blood glucose was also elevated at 305. This was not fasting blood glucose. Hospitalist team was endorsed for evaluation and possible admission for further management Decompensated End stage liver disease -With recurrent ascites, thrombocytopenia, ascites, portal hypertension, varice s, splenomegaly -Hemodynamically unstable with hypotension and recurrent syncope -Has been discussed with Dr. Aguilar dirt contractor who plans to see patient to make further recommendations -Admit to ICU for management of hypotension -Albumin transfusion given patient's low albumin status and poor oncotic pressure -paracentesis for comfort if nauseated or increased respiratory distress. Insulin-dependent diabetes mellitus -Caloric controlled diet -Finger stick checks prior to meals and at bedtime -Coverage with insulin sliding scale protocol -Last A1c on 01/04 is 9.9 Recurrent syncope -Has been evaluated during prior admission found likely to be related to end- stage liver disease and hypotension -Fall precautions -Hold blood pressure medications at this time -albumin infusion Loculated right pleural effusion -small as compared to previous imaging studies -no acute infectious etiology without fever or white count -if worsens, consider thoracentesis, thoracic surgical intervention or drain placement Hypotension -Likely due to osmotic diuresis -Hold antihypertensives -Transfuse albumin -ICU admission [place] with End-stage liver disease -previously referred to [facility], but has not followed up since. Pancytopenia -due to decompensated endstage liver disease -symptomatic care -supportive care -no acute indication for neupogen, rbc or platelet transfusion Coagulopathy due to liver disease -elevated INR -no signs of active bleeding -no acute indication for rbc transfusion Anxiety and depression -no suicidal ideation DVT prophylaxis -Contraindicated in the setting of thrombocytopenia -Will use TEDs/SCDs VS, I&O, 24H, Fishbone Vital Signs/I&O Vital Signs Date Time Temp Pulse Resp B/P (MAP) Pulse Ox O2 Delivery O2 Flow Rate FiO2 02/08/19 06:00 60 16 85/47 (60) 93 02/08/19 04:00 97.8 02/07/19 18:15 Room Air I&O- Last 24 Hours up to 6 AM 02/08/19 06:00 Intake Total 2180 ml Output Total 2150 ml Balance 30 ml Laboratory Data 24H LABS Laboratory Tests 2 02/07/19 11:59: Immature Granulocyte % (Auto) 0.3, White Blood Count 3.8L, Red Blood Count 2.96L, Hemoglobin 8.9L, Hematocrit 29.1L, Mean Corpuscular Volume 98.3H, Mean Corpuscular Hemoglobin 30.1, Mean Corpuscular Hemoglobin Concent 30.6L, Red Cell Distribution Width 18.6H, Platelet Count 85L, Neutrophils (%) (Auto) 63.9, Lymphocytes (%) (Auto) 17.5L, Monocytes (%) (Auto) 9.9H, Eosinophils (%) (Auto) 7.6H, Basophils (%) (Auto) 0.8, Neutrophils # (Auto) 2.5, Lymphocytes # (Auto) 0.7L, Monocytes # (Auto) 0.4, Eosinophils # (Auto) 0.3, Basophils # (Auto) 0.0, Nucleated Red Blood Cells % (auto) 0.0, Immature Platelet Fraction 5.8, Prothrombin Time 15.8H, Prothromb Time International Ratio 1.28, Anion Gap 6L, Glomerular Filtration Rate 43.5L, Calcium Level 8.3L, Aspartate Amino Transf (AST/SGOT) 28, Alanine Aminotransferase (ALT/SGPT) 23, Alkaline Phosphatase 170H, Total Bilirubin 0.8, Direct Bilirubin 0.3H, Total Creatine Kinase 34, Creatine Kinase MB < 1.0, Creatine Kinase MB Relative Index 2.94, Troponin I < 0.02, Total Protein 6.2L, Albumin 2.7L, Albumin/Globulin Ratio 0.77L, Lipase 157 02/07/19 16:13: Urine Color STRAW, Urine Appearance CLEAR, Urine pH 6.0, Urine Specific [place] 1.006, Urine Protein NEGATIVE, Urine Glucose (UA) 2+H, Urine Ketones NEGATIVE, Urine Blood NEGATIVE, Urine Nitrite NEGATIVE, Urine Bilirubin NEGATIVE, Urine Urobilinogen 0.2, Urine Leukocyte Esterase TRACEH, Urine WBC (Auto) 1, Urine RBC (Auto) 1, Urine Hyaline Casts (Auto) 1, Urine Bacteria (Auto) NEGATIVE, Urine Squamous Epithelial Cells 0, Urine Sperm (Auto) 02/07/19 21:20: Bedside Glucose (Misc Panel) 328H 02/08/19 04:54: Nucleated Red Blood Cells % (auto) 0.0, Anion Gap 8, Glomerular Filtration Rate 47.7, Calcium Level 8.0L, Aspartate Amino Transf (AST/SGOT) 19, Alanine Aminotransferase (ALT/SGPT) 21, Alkaline Phosphatase 144H, Total Bilirubin 0.5, Total Protein 6.1L, Albumin 2.7L, Albumin/Globulin Ratio 0.79L, Blood Urea Nitrogen 18, Creatinine 1.21, Sodium Level 143, Potassium Level 3.7, Chloride Level 107, Carbon Dioxide Level 28 CBC/BMP Laboratory Tests 02/07/19 11:59 Red Blood Count 2.96 L, Mean Corpuscular Volume 98.3 H, Mean Corpuscular Hemoglobin 30.1, Mean Corpuscular Hemoglobin Concent 30.6 L, Red Cell Distribution Width 18.6 H, Neutrophils (%) (Auto) 63.9, Lymphocytes (%) (Auto) 17.5 L, Monocytes (%) (Auto) 9.9 H, Eosinophils (%) (Auto) 7.6 H, Basophils (%) (Auto) 0.8, Neutrophils # (Auto) 2.5, Lymphocytes # (Auto) 0.7 L, Monocytes # (Auto) 0.4, Eosinophils # (Auto) 0.3, Basophils # (Auto) 0.0 02/08/19 04:54 Red Blood Count 2.77 L, Mean Corpuscular Volume 96.8 H, Mean Corpuscular Hemoglobin 28.9, Mean Corpuscular Hemoglobin Concent 29.9 L, Red Cell Distribution Width 18.5 H, Calcium Level 8.0 L, Aspartate Amino Transf (AST/SGOT) 19, Alanine Aminotransferase (ALT/SGPT) 21, Alkaline Phosphatase 144 H, Total Bilirubin 0.5, Total Protein 6.1 L, Albumin 2.7 L Microbiology Microbiology 02/07/19 Blood Culture, Received Pending 02/07/19 Blood Culture, Received Pending 02/07/19 Urine Culture, Received Pending CAROL BOUCHER MD Feb 08, 2019 07:05
[2019-02-08 15:26] LABS: APPEARANCE, BODY FLUID CLOUDY (CLEAR); PERITONEAL FL COLOR PALE YELLOW (COLORLESS); SOURCE, BODY FLUID PERITONEAL; SPEC. GRAVITY BODY FLUIDS 1.009 (NOT ESTABLISHED)
[2019-02-08 15:50] LABS: SOURCE, BODY FLUID ALBUMIN PERITONEAL; SOURCE, BODY FLUID GLUCOSE PERITONEAL; SOURCE, BODY FLUID TOT PROTEIN PERITONEAL; TOTAL PROTEIN, BODY FLUID 0.7 G/DL (NOT ESTABLISHED)
--- NOTE | 2019-02-08 16:30 | REP ---
Ultrasound-guided paracentesis The procedure was performed by ARMANDO Shepherd, under the direct supervision of Dr. Fu. The risks and benefits of the procedure were explained to the patient and informed consent was obtained both verbally and written. Directly prior to the start of the procedure, a formal timeout was completed in the procedure room. Under ultrasound guidance, the largest pocket of fluid in the right flank was localized and skin was marked. The skin was then prepped and draped in a sterile fashion. 10 ml of 1% lidocaine was used as a local anesthetic. Using ultrasound guidance, an 8-Yi multi side-hole catheter was inserted using trocar technique. 1,500 mL of pink colored fluid was withdrawn, 200 ml was sent to the lab for further analysis, and the rest was discarded. The patient tolerated the procedure well and there were no immediate complications. After the appropriate monitored convalescence the patient was discharged from the department. Reviewed by ARMANDO Montez 02/08/2019 03:47 P Electronically Signed by Lonny Fu MD 02/08/2019 04:22 P
[2019-02-08] MEDS: MIDODRINE 5 MG TAB PO SCH (17:30)
[2019-02-08] MEDS ORDERED: traMADol 50 MG TAB PO ONE (17:30)
[2019-02-09 01:52] VITALS: BP 103/52
[2019-02-09 07:22] LABS: HEMATOCRIT 27.8 % (36.0-47.0); HEMOGLOBIN 8.2 g/dl (12.0-15.5); MEAN CORPUSCULAR HEMOGLOBIN 29.5 pg (27.0-33.0); MEAN CORPUSCULAR HGB CONC 29.5 g/dl (32.0-36.5); RED BLOOD COUNT 2.78 10^6/uL (4.00-5.40)
[2019-02-09 07:58] LABS: PLATELET COUNT, AUTOMATED 65 10^3/uL (150-450); WHITE BLOOD COUNT 1.9 10^3/uL (4.0-10.0)
[2019-02-09 08:03] LABS: ALBUMIN 2.8 GM/DL (3.2-5.2); BILIRUBIN,TOTAL 0.6 MG/DL (0.2-1.0); CALCIUM LEVEL 8.4 MG/DL (8.8-10.2); CREATININE FOR GFR 1.07 MG/DL (0.55-1.30); POTASSIUM SERUM 3.5 MEQ/L (3.5-5.1); TOTAL PROTEIN 6.1 GM/DL (6.4-8.2)
[2019-02-09] MEDS: HumaLOG INSULIN (NovoLOG) PER UNIT SC SCH ×4 (08:56→20:30)
[2019-02-09] MEDS: LEVEMIR (INSULIN DETEMIR) 1 UNITS/0.01ML SC SCH ×2 (08:57→20:40)
[2019-02-09] MEDS: rOPINIRole 1MG TAB PO SCH ×2 (08:57→20:39)
[2019-02-09] MEDS: ESCITALOPRAM OXALATE 10 MG TAB (LEXAPRO) PO SCH (08:58)
[2019-02-09] MEDS: PANTOPRAZOLE 40MG TAB (PROTONIX) PO SCH (08:58)
[2019-02-09] MEDS: MIDODRINE 5 MG TAB PO SCH ×2 (08:58→15:19)
[2019-02-09] MEDS: FERROUS SULFATE 325MG TAB PO SCH ×2 (08:58→20:39)
--- NOTE | 2019-02-09 09:38 | IPNPDOC ---
Date Seen The patient was seen on 02/09/19. Progress Note SUBJECTIVE: Pt says she has been okay until 6 months ago when she started to have decompensated liver disease with recurrent ascites requiring multiple paracentesis with 7liters removed. She c/o increased abdominal distention, lower extremity edema, and weight gain. She was referred to [facility] a few years ago, but has not followed up since. She sees Dr. Cuba in [place] and had not previously discussed the need for TIPS procedure for recurrent ascites. She denies any sob, afebrile, no chills , but has a loculated pleural effusion on CT chest. s/p albumin infusions last night, and MAP>65 . no c/o chest pain , pressure, but had left sided abdominal pain this am 7/10 on pain scale. Urine cx: Strep sensitive to levaquin. she continues to have abdominal distention s/p paracentesis 02/08/19 but only 1.5 liters removed because the catheter clogged, and Radiology said only one paracentesis per day per the patient. EKG no acute ischemia, card tad negative. Awaiting GI Dr. Aguilar consultation. OBJECTIVE: PHYSICAL EXAMINATION VITALS: PLS SEE BELOW GENERAL: morbidly obese female in no acute distress SKIN : Warm, drainage to left lower quadrant paracentesis site with colostomy bag. HEENT: Atraumatic, normocephalic, PERRL, moist mucous membrane CARDIOVASCULAR: Regular rate and rhythm, S1S2, no JVD, no edema, distal pulses + and palpable RESP: CTAB, no accessory muscle use noted ABDOMEN: BS+, distended with some tenderness, yellow drainage is present to left lower quadrant paracentesis site with colostomy bag. MS: no joint deformities NEURO: Alert and oriented x 3, CN2-12 grossly intact PSYCH: no anxiety or agitation, appropriate mood and affect LABORATORY DATA, IMAGING STUDIES, MICROBIOLOGY: PLS SEE BELOW ASSESSMENT AND PLAN: Patient is a 63-year-old female, past medical history significant for nonalcoholic steatohepatitis and end-stage liver disease requiring frequent paracentesis,insulin-dependent diabetes mellitus, morbid obesity, hypertension, portal hypertension, presenting to the emergency room on account of shortness of breath and abdominal pain. Patient was recently discharged from this facility a week ago. During that hospitalization, she had paracentesis and drainage of 7 L ascites fluid. At discharge, patient states after dressing was taken off, she started noticing significant drainage from paracentesis site. Drainage was soaking through her underwear and any dressing she put on it. She called and informed her primary care physician who called her stamp machine servicer at [facility] (Dr. Cuba). Last night, however drainage was so much that patient took her granddaughter's colostomy bag and placed over drainage site. Today, patient had multiple episodes of syncope and called her primary care physician who recommended coming to the emergency room. On arrival, blood pressure was 109/49, blood pressure further trended down to systolic blood pressure of 80s and map of 45. Preliminary investigative studies in the emergency room with CT abdomen and pelvis, demonstrated moderate ascites with edema, small partially loculated right pleural effusion, decreased from prior examination. Laboratory data was significant for hemoglobin of 8.9, platelets of 85, GFR 43, creatinine 1.3, albumin globulin ratio 0.77 with an albumin level of 2.7 and total protein of 6.2. Blood glucose was also elevated at 305. This was not fasting blood glucose. Hospitalist team was endorsed for evaluation and possible admission for further management Decompensated End stage liver disease -With recurrent ascites, thrombocytopenia, ascites, portal hypertension, varices, splenomegaly -Hemodynamically unstable with hypotension and recurrent syncope -Has been discussed with Dr. Aguilar stamp machine servicer who plans to see patient to make further recommendations -Admit to ICU for management of hypotension -Albumin transfusion given patient's low albumin status and poor oncotic pressure -s/p paracentesis 02/08/19 with 1.5 liters out -mayneed repeat paracentesis for comfort if nauseated or increased respiratory distress. Insulin-dependent diabetes mellitus -Caloric controlled diet -Finger stick checks prior to meals and at bedtime -Coverage with insulin sliding scale protocol -Last A1c on 01/04 is 9.9 Recurrent syncope -Has been evaluated during prior admission found likely to be related to end- stage liver disease and hypotension -Fall precautions -Hold blood pressure medications at this time -albumin infusion Loculated right pleural effusion -small as compared to previous imaging studies -no acute infectious etiology without fever or white count -if worsens, consider thoracentesis, thoracic surgical intervention or drain placement Hypotension -Likely due to osmotic diuresis -Hold antihypertensives -Transfuse albumin -ICU admission [place] with End-stage liver disease -previously referred to [facility], but has not followed up since. Pancytopenia -due to decompensated endstage liver disease -symptomatic care -supportive care -no acute indication for neupogen, rbc or platelet transfusion Coagulopathy due to liver disease -elevated INR -no signs of active bleeding -no acute indication for rbc transfusion Anxiety and depression -no suicidal ideation DVT prophylaxis -Contraindicated in the setting of thrombocytopenia -Will use TEDs/SCDs VS, I&O, 24H, Fishbone Vital Signs/I&O Vital Signs Date Time Temp Pulse Resp B/P (MAP) Pulse Ox O2 Delivery O2 Flow Rate FiO2 02/09/19 02:37 62 18 94 02/09/19 01:52 98.7 103/52 (69) 02/07/19 18:15 Room Air I&O- Last 24 Hours up to 6 AM 02/09/19 06:00 Intake Total 875 ml Output Total 875 ml Balance 0 ml Laboratory Data 24H LABS Laboratory Tests 2 02/08/19 09:33: Bedside Glucose (Misc Panel) 189H 02/08/19 09:59: Total Creatine Kinase 26, Creatine Kinase MB < 1.0, Creatine Kinase MB Relative Index 3.85, Troponin I < 0.02 02/08/19 12:03: Bedside Glucose (Misc Panel) 230H 02/08/19 14:55: Body Fluid Specific [place] 1.009, Body Fluid WBC (Auto) 88H, Body Fluid RBC (Auto) 2, Body Fluid Mononuclear Cells % Auto 90.9H, Fluid Polymorphonuclear Cell % Auto 9.1H, Body Fluid Glucose Source PERITONEAL, Body Fluid Glucose 230, Body Fluid Protein Source PERITONEAL, Body Fluid Total Protein 0.7, Body Fluid Albumin Source PERITONEAL, Body Fluid Albumin 0.3, Peritoneal Fluid Source PERITONEAL, Peritoneal Fluid Color PALE YELLOW, Peritoneal Fluid Appearance CLOUDY 02/08/19 16:55: Bedside Glucose (Misc Panel) 214H 02/08/19 19:54: Bedside Glucose (Misc Panel) 208H 02/09/19 05:44: Bedside Glucose (Misc Panel) 198H Microbiology Microbiology 02/07/19 Blood Culture - Preliminary, Resulted No growth after 24 hours . All specim... 02/07/19 Blood Culture - Preliminary, Resulted No growth after 24 hours . All specim... 02/08/19 Acid Fast Stain, Received Pending 02/08/19 Mycobacterial Culture, Received Pending 02/08/19 Fungal Smear, Received Pending 02/08/19 Fungal Culture, Received Pending 02/08/19 Gram Stain - Final, Resulted 02/08/19 Body Fluid Culture, Resulted Pending 02/08/19 Anaerobic Culture, Resulted Pending 02/08/19 MRSA Screen, Received Pending 02/07/19 Urine Culture - Final, Complete Strep Agalactiae Group B CAROL BOUCHER MD Feb 09, 2019 06:43
[2019-02-09] MEDS ORDERED: oxyCODONE 5MG TAB PO ONE (09:45)
[2019-02-09] MEDS: LevoFLOXacin 750 MG TABLET PO SCH (10:10)
[2019-02-09 14:00] VITALS: BP 85/42
--- NOTE | 2019-02-09 15:02 | ECHO ---
DATE OF PROCEDURE: 02/07/2019 AGE: 63 GENDER: Female HEIGHT: 61 inches WEIGHT: 224 pounds BODY SURFACE AREA: 1.99 m2 PATIENT LOCATION: Inpatient, ICU, room 3206 REFERRING PHYSICIAN: Rene Can NP INDICATION: Syncope. 2-D MEASUREMENTS: RV: 3.6 cm LV: 4.7 cm Septum: 1.1 cm Posterior wall: 1.1 cm Aortic root: 3.2 cm LA: 4.5 cm LVEF: 65% DOPPLER MEASUREMENTS: AV: 1.64 m/s LVOT: 1.2 m/s LVOT diameter: 2.0 cm MV-E: 91, A: 83, E/A ratio: 1.1 Early mitral deceleration time: 264 ms PV: 1.1 m/s Pulmonary artery acceleration time: 100 ms RVSP: 37 mmHg IVC: 1.6 cm COMMENTS Normal sinus rhythm without intraventricular conduction disturbance. M-mode and two-dimensional echocardiography was performed with pulsed, continuous wave, color flow, and tissue Doppler studies. LV wall thickness upper limits of normal with normal symmetrical wall motion. Mildly dilated left atrium with sign of impaired LV diastolic function, but current estimated mean left atrial pressure upper limits of normal. Normal right heart chamber sizes and motion with Doppler evidence of mild pulmonary hypertension. Normal IVC size and collapse against an elevated central venous pressure. Aortic valvular sclerosis without functional abnormality. Normal aortic root size. Mild mitral annular thickening with normal leaflet excursion and no posterior systolic buckling but mild insufficiency. Normal appearing tricuspid valve with mild insufficiency. No apparent intracardiac mass or pericardial effusion. MTDD
--- NOTE | 2019-02-09 15:03 | CR ---
DATE OF CONSULTATION: 02/09/2019 A 63-year white female who is being admitted to [facility] for known history of nonalcoholic steatohepatitis, end-stage liver disease and cirrhosis with complications of significant recurrent ascites. The patient is a diabetic, has morbid obesity, hypertension and also portal hypertension. The patient presented with some shortness of breath and abdominal pain. The patient was admitted to this facility again for the same problem and has had, in the last month, 3-4 for a paracentesis drainage procedures, removing at least 7 liters of fluid a day. The patient apparently sees Dr. Cadena in [place]. The patient apparently has had multiple episodes of syncope and was told by her primary to come to the emergency room. MEDICATIONS AT HOME: Include: - aspirin - Nexium - Lasix 40 mg twice a day - insulin - meclizine - nadolol 20 mg a day - spirolactone ALLERGIES: TYLENOL, HYDROCHLOROTHIAZIDE and IBUPROFEN. PAST MEDICAL HISTORY: Positive for: 1. Diabetes mellitus. 2. Diverticulosis. 3. Portal hypertension. 3. Splenomegaly. 4. End-stage liver disease secondary to nonalcoholic fatty liver disease (NAFLD). 5. Obesity. 6. Hyperlipidemia. 7. Thrombocytopenia. 8. Anxiety/depression. SURGICAL HISTORY: Positive for: 1. Appendectomy. 2. Hysterectomy. 3. Bilateral surgical shoulder surgeries. 4. Left elbow surgery. 5. Right knee surgery. 6. Multiple dilation and curettages (D and Cs). FAMILY HISTORY: Father had alcohol abuse. Mother and siblings have diabetes. SOCIAL HISTORY: The patient denies any cigarettes, alcohol or intravenous drugs. REVIEW OF SYSTEMS: A 10-point review of systems is noncontributory. PHYSICAL EXAMINATION: GENERAL: This is a well-developed, morbid obese white female. CARDIOVASCULAR EXAM: Showed a regular rhythm. No murmurs or gallops. Normal physiological split. S1, S2. ABDOMEN: Soft, globose, distended, positive. Drainage bag on the right side from a previous paracentesis. No drainage appeared to be in the bag. Her abdomen is distended due to ascites. EXTREMITIES: 2+ to 3+ pitting edema. LABORATORY STUDIES: On admission include a complete blood count (CBC), which showed a white count of 3800, hemoglobin and hematocrit (H and H) is 8.9 and 29.1, platelets were 85,000. The patient's chemistry showed an albumin of 2.7, total bilirubin is 0.8, alkaline phosphatase is 170, ammonia was 82, lipase was normal at 157. Liver functions are normal. INR is 1.28. IMAGING STUDIES On admission: Abdominal CT on 02/07/2019, which was ordered due to abdominal distension and ascites. CT showed a small loculated right pleural effusion, seen from previous evaluations. Patient's scan suggested cirrhosis with portal venous hypertension, moderate ascites and moderate edematous infiltration to the subcutaneous tissues, splenomegaly and significant portal venous collateral circulation including recannulized umbilical vein was noted, cholelithiasis and diverticulosis. ANALYSIS: 1. Cirrhosis secondary to fatty liver. 2. Obesity. 3. Ascites. 4. Portal hypertension. 5. Thrombocytopenia. 6. Mild anemia. 7. Diabetes. 8. Hypertension. PLAN: 1. At the present time, the patient's model end stage liver disease (MELD) score is calculated out to be 10, equals a 6%, 3 month mortality, which is good. Patient has a child's classification of B with a 30% postoperative mortality if any surgery is considered. The plan will be to consider referring the patient to [facility] in [place] for a possible transjugular intrahepatic portosystemic shunt (TIPS) procedure, although I am a little concerned that her serial ammonia is 80, which would then, if a TIPS procedure was performed, that will increase the risk of the patient developing encephalopathy. It does not appear that this current weekly paracentesis is going to work out well for her with the increased risk of infections and spontaneous bacterial peritonitis. 2. Plan will be to treat the patient while she is in the hospital, attempt another paracentesis to remove a large volume with intravenous albumin given at the same time. 3. Consider possibly following up [place] to see if they would take the patient in transfer, since it might be easier to do this as an inpatient transfer versus outpatient, since I feel that she may have trouble ambulating.
[2019-02-09] MEDS ORDERED: LACTULOSE 20 GM/30 ML SYRUP UD PO PRN (16:45)
[2019-02-09] MEDS ORDERED: MOM 30ML SUSPENSION UDC PO PRN (16:45)
[2019-02-09] MEDS: SENOKOT S TAB PO PRN (17:45)
[2019-02-09 22:00] VITALS: BP 99/54
[2019-02-10] MEDS: LevoFLOXacin 750 MG TABLET PO SCH (05:22)
[2019-02-10 06:00] VITALS: BP 114/55
[2019-02-10 07:02] LABS: HEMOGLOBIN 8.2 g/dl (12.0-15.5); MEAN CORPUSCULAR HEMOGLOBIN 29.4 pg (27.0-33.0); MEAN CORPUSCULAR HGB CONC 29.3 g/dl (32.0-36.5); MEAN CORPUSCULAR VOLUME 100.4 fl (80.0-96.0); RED BLOOD COUNT 2.79 10^6/uL (4.00-5.40); WHITE BLOOD COUNT 2.1 10^3/uL (4.0-10.0)
[2019-02-10 07:07] LABS: PLATELET COUNT, AUTOMATED 61 10^3/uL (150-450)
[2019-02-10 07:31] LABS: ALBUMIN 2.6 GM/DL (3.2-5.2); BILIRUBIN,TOTAL 0.6 MG/DL (0.2-1.0); CALCIUM LEVEL 8.9 MG/DL (8.8-10.2); CREATININE FOR GFR 1.15 MG/DL (0.55-1.30); GLOMERULAR FILTRATION RATE 50.6 (>45); POTASSIUM SERUM 4.4 MEQ/L (3.5-5.1); TOTAL PROTEIN 6.1 GM/DL (6.4-8.2)
[2019-02-10] MEDS: PANTOPRAZOLE 40MG TAB (PROTONIX) PO SCH (08:01)
[2019-02-10] MEDS: ESCITALOPRAM OXALATE 10 MG TAB (LEXAPRO) PO SCH (08:01)
[2019-02-10] MEDS: rOPINIRole 1MG TAB PO SCH ×2 (08:01→22:10)
[2019-02-10] MEDS: MIDODRINE 5 MG TAB PO SCH ×2 (08:01→15:32)
[2019-02-10] MEDS: FERROUS SULFATE 325MG TAB PO SCH ×2 (08:01→22:10)
[2019-02-10] MEDS: HumaLOG INSULIN (NovoLOG) PER UNIT SC SCH ×4 (08:02→22:11)
[2019-02-10] MEDS: LEVEMIR (INSULIN DETEMIR) 1 UNITS/0.01ML SC SCH ×2 (08:02→23:06)
[2019-02-10] MEDS: ONDANSETRON 4MG/2ML VIAL (J2405) IV PRN (08:46)
--- NOTE | 2019-02-10 12:53 | IPNPDOC ---
Date Seen The patient was seen on 02/10/19. Progress Note SUBJECTIVE: Per daughter, pt has been wanting to have 24/7 care, and has been concerned about being alone at home. However, her 3children work fulltime and unable to care for her. Per the daughter, pt has been more and more deconditioned, and noncompliant with her diet and fluid restriction. "She eats and drinks what she wants. She doesn't listen." Pt says she has been okay until 6 months ago when she started to have decompensated liver disease with recurrent ascites requiring multiple parac entesis with 7liters removed. She c/o increased abdominal distention, lower extremity edema, and weight gain. She was referred to [facility] a few years ago, but has not followed up since. She sees Dr. Cuba in [place] and had not previously discussed the need for TIPS procedure for recurrent ascites. She denies any sob, afebrile, no chills , but has a loculated pleural effusion on CT chest. s/p albumin infusions last night, and MAP>65 . no c/o chest pain , pressure, but had left sided abdominal pain this am 7/10 on pain scale. Urine cx: Strep sensitive to levaquin. she continues to have abdominal distention s/p paracentesis 02/08/19 but only 1.5 liters removed because the cat heter clogged, and Radiology said only one paracentesis per day per the patient. EKG no acute ischemia, card tad negative. Per GI Dr. Aguilar, pt should be transferred if possible as an inpatient to [facility] for TIPS. Pt requested paracentesis be done on Monday, and is open to being transferred to [facility] if needed. OBJECTIVE: PHYSICAL EXAMINATION VITALS: PLS SEE BELOW GENERAL: morbidly obese female in no acute distress SKIN : Warm, drainage to left lower quadrant paracentesis site with colostomy bag. HEENT: Atraumatic, normocephalic, PERRL, moist mucous membrane CARDIOVASCULAR: Regular rate and rhythm, S1S2, no JVD, no edema, distal pulses + and palpable RESP: CTAB, no accessory muscle use noted ABDOMEN: BS+, distended with some tenderness, yellow drainage is present to left lower quadrant paracentesis site with colostomy bag. MS: no joint deformities NEURO: Alert and oriented x 3, CN2-12 grossly intact PSYCH: no anxiety or agitation, appropriate mood and affect LABORATORY DATA, IMAGING STUDIES, MICROBIOLOGY: PLS SEE BELOW ASSESSMENT AND PLAN: Patient is a 63-year-old female, past medical history significant for nonalcohol ic steatohepatitis and end-stage liver disease requiring frequent paracentesis,insulin-dependent diabetes mellitus, morbid obesity, hypertension, portal hypertension, presenting to the emergency room on account of shortness of breath and abdominal pain. Patient was recently discharged from this facility a week ago. During that hospitalization, she had paracentesis and drainage of 7 L ascites fluid. At discharge, patient states after dressing was taken off, she started noticing significant drainage from paracentesis site. Drainage was soaking through her underwear and any dressing she put on it. She called and informed her primary care physician who called her information security associate at [facility] (Dr. Cuba). Last night, however drainage was so much that patient took her granddaughter's colostomy bag and placed over drainage site. Today, patient had multiple episodes of syncope and called her primary care physician who recommended coming to the emergency room. On arrival, blood pressure was 109/49, blood pressure further trended down to systolic blood pressure of 80s and map of 45. Preliminary investigative studies in the emergency room with CT abdomen and pelvis, demonstrated moderate ascites with edema, small partially loculated right pleural effusion, decreased from prior examination. Laboratory data was significant for hemoglobin of 8.9, platelets of 85, GFR 43, creatinine 1.3, albumin globulin ratio 0.77 with an albumin level of 2.7 and total protein of 6.2. Blood glucose was also elevated at 305. This was not fasting blood glucose. Hospitalist team was endorsed for evaluation and possible admission for further management Decompensated End stage liver disease -With recurrent ascites, thrombocytopenia, ascites, portal hypertension, varices, splenomegaly -Hemodynamically unstable with hypotension and recurrent syncope -Has been discussed with Dr. Aguilar information security associate who plans to see patient to make further recommendations -Admit to ICU for management of hypotension -Albumin transfusion given patient's low albumin status and poor oncotic pressure -s/p paracentesis 02/08/19 with 1.5 liters out -ordered paracentesis for Monday. -Per GI Dr. Aguilar, pt should be transferred if possible as an inpatient to [facility] for TIPS. Pt requested paracentesis be done on Monday, and is open to being transferred to [facility] if needed. Insulin-dependent diabetes mellitus -Caloric controlled diet -Finger stick checks prior to meals and at bedtime -Coverage with insulin sliding scale protocol -Last A1c on 01/04 is 9.9 Recurrent syncope -Has been evaluated during prior admission found likely to be related to end- stage liver disease and hypotension -Fall precautions -Hold blood pressure medications at this time -albumin infusion Loculated right pleural effusion -small as compared to previous imaging studies -no acute infectious etiology without fever or white count -if worsens, consider thoracentesis, thoracic surgical intervention or drain placement Hypotension -Likely due to osmotic diuresis -Hold antihypertensives -Transfuse albumin -ICU admission [place] with End-stage liver disease -previously referred to [facility], but has not followed up since. Pancytopenia -due to decompensated endstage liver disease -symptomatic care -supportive care -no acute indication for neupogen, rbc or platelet transfusion Coagulopathy due to liver disease -elevated INR -no signs of active bleeding -no acute indication for rbc transfusion Anxiety and depression -no suicidal ideation DVT prophylaxis -Contraindicated in the setting of thrombocytopenia -Will use TEDs/SCDs VS, I&O, 24H, Fishbone Vital Signs/I&O Vital Signs Date Time Temp Pulse Resp B/P (MAP) Pulse Ox O2 Delivery O2 Flow Rate FiO2 02/09/19 22:05 65 18 94 02/09/19 22:00 97.2 99/54 (69) 02/07/19 18:15 Room Air I&O- Last 24 Hours up to 6 AM 02/10/19 06:00 Intake Total 966 ml Output Total 500 ml Balance 466 ml Laboratory Data 24H LABS Laboratory Tests 2 02/09/19 07:04: Nucleated Red Blood Cells % (auto) 0.0, Immature Platelet Fraction 5.4, Anion Gap 5L, Glomerular Filtration Rate 55.0, Blood Urea Nitrogen 15, Creatinine 1.07, Sodium Level 142, Potassium Level 3.5, Chloride Level 109H, Carbon Dioxide Level 28, Calcium Level 8.4L, Aspartate Amino Transf (AST/SGOT) 20, Alanine Aminotransferase (ALT/SGPT) 19, Alkaline Phosphatase 136H, Total Bilirubin 0.6, Total Protein 6.1L, Albumin 2.8L, Ammonia 82H, Albumin/Globulin Ratio 0.85L 02/09/19 11:27: Bedside Glucose (Misc Panel) 184H 02/09/19 16:39: Bedside Glucose (Misc Panel) 227H 02/09/19 18:59: Bedside Glucose (Misc Panel) 189H 02/09/19 20:53: Bedside Glucose (Misc Panel) 221H 02/10/19 06:02: Bedside Glucose (Misc Panel) 171H CBC/BMP Laboratory Tests 02/09/19 07:04 Red Blood Count 2.78 L, Mean Corpuscular Volume 100.0 H, Mean Corpuscular Hemoglobin 29.5, Mean Corpuscular Hemoglobin Concent 29.5 L, Red Cell Distribution Width 18.2 H, Calcium Level 8.4 L, Aspartate Amino Transf (AST/ SGOT) 20, Alanine Aminotransferase (ALT/SGPT) 19, Alkaline Phosphatase 136 H, Total Bilirubin 0.6, Total Protein 6.1 L, Albumin 2.8 L Microbiology Microbiology 02/07/19 Blood Culture - Preliminary, Resulted No Growth after 48 hours. All Specime... 02/07/19 Blood Culture - Preliminary, Resulted No Growth after 48 hours. All Specime... 02/08/19 Acid Fast Stain, Received Pending 02/08/19 Mycobacterial Culture, Received Pending 02/08/19 Fungal Smear, Received Pending 02/08/19 Fungal Culture, Received Pending 02/08/19 Gram Stain - Final, Complete 02/08/19 Body Fluid Culture - Final, Complete 02/08/19 Anaerobic Culture - Final, Complete 02/08/19 MRSA Screen - Final, Complete 02/07/19 Urine Culture - Final, Complete Strep Agalactiae CAROL Bruno MD Feb 10, 2019 06:20
[2019-02-10 14:00] VITALS: BP 121/58
[2019-02-10] MEDS: SENOKOT S TAB PO PRN ×2 (15:32→22:11)
[2019-02-10 22:00] VITALS: BP 101/44
[2019-02-11] MEDS: ONDANSETRON 4MG/2ML VIAL (J2405) IV PRN ×2 (04:18→11:00)
[2019-02-11] MEDS: LevoFLOXacin 750 MG TABLET PO SCH (05:13)
[2019-02-11 06:00] VITALS: BP 111/58
[2019-02-11] MEDS ORDERED: NITROGLYCERIN 0.3 MG SUBL TAB SL STA (07:57)
[2019-02-11] MEDS ORDERED: MORPHINE 4 MG/ML 1ML VIAL/SYRINGE (J2270) IV ONE (08:00)
[2019-02-11] MEDS ORDERED: GI COCKTAIL 50ML BTL(HYOSCYAMINE/MAALOX/LIDOCAINE VISCOUS)(1:3:1) PO PRN (08:00)
[2019-02-11] MEDS ORDERED: NITROGLYCERIN 0.4 MG SUBL TABLET As Ordered ONE (08:06)
[2019-02-11 08:08] VITALS: BP 118/62
[2019-02-11 08:16] VITALS: BP 104/62
[2019-02-11 08:35] LABS: BASO % 0.8 % (0.0-1.0); EOS # 0.1 10^3/uL (0.0-0.50); EOS % 3.5 % (0.0-3.0); HEMOGLOBIN 8.4 g/dl (12.0-15.5); LYMPH # 0.4 10^3/uL (1.5-4.5); LYMPH % 14.6 % (24.0-44.0); MEAN CORPUSCULAR HEMOGLOBIN 29.9 pg (27.0-33.0); MEAN CORPUSCULAR VOLUME 99.6 fl (80.0-96.0); MONO # 0.2 10^3/uL (0.0-0.8); MONO % 8.5 % (0.0-5.0); NEUTROPHILS # 1.9 10^3/uL (1.8-7.7); NEUTROPHILS % 72.6 % (36.0-66.0); RED BLOOD COUNT 2.81 10^6/uL (4.00-5.40); WHITE BLOOD COUNT 2.6 10^3/uL (4.0-10.0)
[2019-02-11 08:40] LABS: PLATELET COUNT, AUTOMATED 62 10^3/uL (150-450)
[2019-02-11 08:44] LABS: INR 1.45; PROTHROMBIN TIME 17.4 SECONDS (11.8-14.0)
[2019-02-11 08:45] LABS: PARTIAL THROMBOPLASTIN TIME 28.9 SECONDS (25.0-38.4)
[2019-02-11] MEDS: HumaLOG INSULIN (NovoLOG) PER UNIT SC SCH ×4 (08:54→20:27)
[2019-02-11] MEDS: MIDODRINE 5 MG TAB PO SCH ×2 (08:54→17:54)
[2019-02-11] MEDS: ESCITALOPRAM OXALATE 10 MG TAB (LEXAPRO) PO SCH (08:55)
[2019-02-11] MEDS: PANTOPRAZOLE 40MG TAB (PROTONIX) PO SCH (08:55)
[2019-02-11] MEDS: rOPINIRole 1MG TAB PO SCH ×2 (08:55→20:27)
[2019-02-11] MEDS: FERROUS SULFATE 325MG TAB PO SCH ×2 (08:55→20:27)
[2019-02-11] MEDS: LEVEMIR (INSULIN DETEMIR) 1 UNITS/0.01ML SC SCH ×2 (08:56→20:28)
[2019-02-11 09:00] LABS: BLOOD UREA NITROGEN 15 MG/DL (7-18); CALCIUM LEVEL 8.3 MG/DL (8.8-10.2); CARBON DIOXIDE LEVEL 27 MEQ/L (21-32); CHLORIDE LEVEL 108 MEQ/L (98-107); CK-MB VALUE MASS < 1.0 NG/ML (<3.6); CPK CREATINE PHOSPHOKINASE 27 U/L (26-192); CREATININE FOR GFR 1.26 MG/DL (0.55-1.30); GLOMERULAR FILTRATION RATE 45.5 (>45); GLUCOSE, FASTING 190 MG/DL (70-100); POTASSIUM SERUM 3.8 MEQ/L (3.5-5.1); SODIUM LEVEL 141 MEQ/L (136-145); TROPONIN I < 0.02 NG/ML (< 0.10)
[2019-02-11] MEDS ORDERED: GI COCKTAIL 50ML BTL(HYOSCYAMINE/MAALOX/LIDOCAINE VISCOUS)(1:3:1) PO ONE (09:00)
[2019-02-11] MEDS ORDERED: ONDANSETRON 4MG/2ML VIAL (J2405) IV PRN (11:15)
--- NOTE | 2019-02-11 13:49 | IPNPDOC ---
Date Seen The patient was seen on 02/11/19. Progress Note SUBJECTIVE: Pt c/o substernal chest heaviness lasting 30-45 minutes worse with taking deep breaths without sob, diaphoresis, n/v/abd pain. EKG unremarkable. troponin negative. s/p gi cocktail, ntg, morphine.As of 10:45am 02/11/19, [facility] [employer] teamcenter consultant , Dr. Marian Simon, refused transfer citing that patient does not meet criteria for TIPS at this time. Pt needs to be compliant with low sodium <2gram diet, maximized on diuretics specifically aldactone or spironolactone with normal renal function, and if hypotensive, maximum dose of midodrine up to 12.5 mg tid with albumin infusions to keep MAP>65, and monitor 24hr urine sodium .Per daughter, pt has been wanting to have 24/7 care, and has been concerned about being alone at home. However, her 3children work fulltime and unable to care for her. Per the daughter, pt has been more and more deconditioned, and noncompliant with her diet and fluid restriction. "She eats and drinks what she wants. She doesn't listen."Pt says she has been okay until 6 months ago when she started to have decompensated liver disease with recurrent ascites requiring multiple paracentesis with 7liters removed. She c/o increased abdominal distention, lower extremity edema, and weight gain. She was referred to [facility] [place] a few years ago, but has not followed up since. She sees Dr. Cuba in [place] and had not previously discussed the need for TIPS procedure for recurrent ascites. She denies any sob, afebrile, no chills , but has a loculated pleural effusion on CT chest. s/p albumin infusions last night, and MAP>65 . no c/o chest pain , pressure, but had left sided abdominal pain this am 7/10 on pain scale. Urine c x: Strep sensitive to levaquin. she continues to have abdominal distention s/p paracentesis 02/08/19 but only 1.5 liters removed because the catheter clogged, and Radiology said only one paracentesis per day per the patient. EKG no acute ischemia, card tad negative. Per GI Dr. Aguilar, pt should be transferred if possible as an inpatient to [facility] for TIPS. Pt requested paracentesis be done on 02/11/19. PHYSICAL EXAMINATION VITALS: PLS SEE BELOW GENERAL: morbidly obese female in no acute distress SKIN : Warm, drainage to left lower quadrant paracentesis site with colostomy bag. HEENT: Atraumatic, normocephalic, PERRL, moist mucous membrane CARDIOVASCULAR: Regular rate and rhythm, S1S2, no JVD, no edema, distal pulses + and palpable RESP: CTAB, no accessory muscle use noted ABDOMEN: BS+, distended with some tenderness, yellow drainage is present to left lower quadrant paracentesis site with colostomy bag. MS: no joint deformities NEURO: Alert and oriented x 3, CN2-12 grossly intact PSYCH: no anxiety or agitation, appropriate mood and affect LABORATORY DATA, IMAGING STUDIES, MICROBIOLOGY: PLS SEE BELOW ASSESSMENT AND PLAN: Patient is a 63-year-old female, past medical history significant for nonalcoholic steatohepatitis and end-stage liver disease requiring frequent paracentesis,insulin-dependent diabetes mellitus, morbid obesity, hypertension, portal hypertension, presenting to the emergency room on account of shortness of breath and abdominal pain. Patient was recently discharged from this facility a week ago. During that hospitalization, she had paracentesis and drainage of 7 L ascites fluid. At discharge, patient states after dressing was taken off, she started noticing significant drainage from paracentesis site. Drainage was soaking through her underwear and any dressing she put on it. She called and informed her primary care physician who called her high school professional at [facility] (Dr. Cuba). Last night, however drainage was so much that patient took her granddaughter's colostomy bag and placed over drainage site. Today, patient had multiple episodes of syncope and called her primary care physician who recommended coming to the emergency room. On arrival, blood pressure was 109/49, blood pressure further trended down to systolic blood pressure of 80s and map of 45. Preliminary investigative studies in the emergency room with CT abdomen and pelvis, demonstrated moderate ascites with edema, small partially loculated right pleural effusion, decreased from prior examination. Laboratory data was significant for hemoglobin of 8.9, platelets of 85, GFR 43, creatinine 1.3, albumin globulin ratio 0.77 with an albumin level of 2.7 and total protein of 6.2. Blood glucose was also elevated at 305. This was not fasting blood glucose. Hospitalist team was endorsed for evaluation and possible admission for further management Decompensated End stage liver disease -With recurrent ascites, thrombocytopenia, ascites, portal hypertension, varices, splenomegaly -Hemodynamically unstable with hypotension and recurrent syncope -Has been discussed with Dr. Aguilar high school professional who plans to see patient to make further recommendations -Admit to ICU for management of hypotension -Albumin transfusion given patient's low albumin status and poor oncotic pressure -s/p paracentesis 02/08/19 with 1.5 liters out -ordered paracentesis for Monday. -Per GI Dr. Aguilar, pt should be transferred if possible as an inpatient to [facility] for TIPS. Pt requested paracentesis be done on Monday, and is open to being transferred to [facility] if needed. -As of 10:45am 02/11/19, [facility] [employer] teamcenter consultant , Dr. Marian Simon, refused transfer citing that patient does not meet criteria for TIPS at this time. -Pt needs to be compliant with low sodium <2gram diet, maximized on diuretics specifically aldactone or spironolactone with normal renal function, and - if hypotensive, maximum dose of midodrine up to 12.5 mg tid with albumin infusions to keep MAP>65, and monitor 24hr urine sodium . Atypical/pleuritic chest pain -Pt c/o substernal chest heaviness lasting 30-45 minutes -worse with taking deep breaths -without sob, diaphoresis, n/v/abd pain. -EKG unremarkable. -troponin negative. -s/p gi cocktail, ntg, morphine. -check cxr r/o worsening pleural effusion Insulin-dependent diabetes mellitus -Caloric controlled diet -Finger stick checks prior to meals and at bedtime -Coverage with insulin sliding scale protocol -Last A1c on 01/04 is 9.9 Recurrent syncope -Has been evaluated during prior admission found likely to be related to end- stage liver disease and hypotension -Fall precautions -Hold blood pressure medications at this time -albumin infusion Loculated right pleural effusion -small as compared to previous imaging studies -no acute infectious etiology without fever or white count -if worsens, consider thoracentesis, thoracic surgical intervention or drain placement Hypotension -Likely due to osmotic diuresis -Hold antihypertensives -Transfused albumin -ICU admission -As of 10:45am 02/11/19, [facility] [employer] teamcenter consultant , Dr. Marian Simon, refused transfer citing that patient does not meet criteria for TIPS at this time. -Pt needs to be compliant with low sodium <2gram diet, maximized on diuretics specifically aldactone or spironolactone with normal renal function, and - if hypotensive, maximum dose of midodrine up to 12.5 mg tid with albumin infusions to keep MAP>65, and monitor 24hr urine sodium . [place] with End-stage liver disease -previously referred to [facility], but has not followed up since. -As of 10:45am 02/11/19, [facility] [employer] teamcenter consultant , Dr. Marian Simon, refused transfer citing that patient does not meet criteria for TIPS at this time. -Pt needs to be compliant with low sodium <2gram diet, maximized on diuretics specifically aldactone or spironolactone with normal renal function, and - if hypotensive, maximum dose of midodrine up to 12.5 mg tid with albumin infusions to keep MAP>65, and monitor 24hr urine sodium . Pancytopenia -due to decompensated endstage liver disease -symptomatic care -supportive care -no acute indication for neupogen, rbc or platelet transfusion Coagulopathy due to liver disease -elevated INR -no signs of active bleeding -no acute indication for rbc transfusion Anxiety and depression -no suicidal ideation DVT prophylaxis -Contraindicated in the setting of thrombocytopenia -Will use TEDs/SCDs VS, I&O, 24H, Fishbone Vital Signs/I&O Vital Signs Date Time Temp Pulse Resp B/P (MAP) Pulse Ox O2 Delivery O2 Flow Rate FiO2 02/10/19 22:00 97.0 66 18 101/44 (63) 95 02/07/19 18:15 Room Air I&O- Last 24 Hours up to 6 AM 02/11/19 06:00 Intake Total 1036 ml Output Total 650 ml Balance 386 ml Laboratory Data 24H LABS Laboratory Tests 2 02/10/19 06:45: Nucleated Red Blood Cells % (auto) 0.0, Anion Gap 4L, Glomerular Filtration Rate 50.6, Blood Urea Nitrogen 14, Creatinine 1.15, Sodium Level 142, Potassium Level 4.4#, Chloride Level 109H, Carbon Dioxide Level 29, Calcium Level 8.9, Aspartate Amino Transf (AST/SGOT) 20, Alanine Aminotransferase (ALT/SGPT) 17, Alkaline Phosphatase 136H, Total Bilirubin 0.6, Total Protein 6.1L, Albumin 2.6L, Album in/Globulin Ratio 0.74L 02/10/19 12:06: Bedside Glucose (Misc Panel) 222H 02/10/19 16:36: Bedside Glucose (Misc Panel) 162H 02/10/19 20:31: Bedside Glucose (Misc Panel) 197H 02/11/19 06:14: Bedside Glucose (Misc Panel) 218H CBC/BMP Laboratory Tests 02/10/19 06:45 Red Blood Count 2.79 L, Mean Corpuscular Volume 100.4 H, Mean Corpuscular Hemoglobin 29.4, Mean Corpuscular Hemoglobin Concent 29.3 L, Red Cell Distribution Width 18.0 H, Calcium Level 8.9, Aspartate Amino Transf (AST/SGOT) 20, Alanine Aminotransferase (ALT/SGPT) 17, Alkaline Phosphatase 136 H, Total Bilirubin 0.6, Total Protein 6.1 L, Albumin 2.6 L Microbiology Microbiology 02/07/19 Blood Culture - Preliminary, Resulted No Growth after 72 hours. All specime... 02/07/19 Blood Culture - Preliminary, Resulted No Growth after 72 hours. All specime... 02/08/19 Acid Fast Stain, Received Pending 02/08/19 Mycobacterial Culture, Received Pending 02/08/19 Fungal Smear, Received Pending 02/08/19 Fungal Culture, Received Pending 02/08/19 Gram Stain - Final, Complete 02/08/19 Body Fluid Culture - Final, Complete 02/08/19 Anaerobic Culture - Final, Complete 02/08/19 MRSA Screen - Final, Complete 02/07/19 Urine Culture - Final, Complete Strep Agalactiae Group B CAROL BOUCHER MD Feb 11, 2019 06:20
[2019-02-11 14:00] VITALS: BP 105/54
[2019-02-11 17:18] LABS: APPEARANCE, BODY FLUID CLOUDY (CLEAR); PERITONEAL FL COLOR PALE YELLOW (COLORLESS); SOURCE, BODY FLUID PERITONEAL; SPEC. GRAVITY BODY FLUIDS 1.011 (NOT ESTABLISHED)
[2019-02-11] MEDS: SPIRONOLACTONE 25 MG TAB PO SCH (17:54)
[2019-02-11] MEDS: SENOKOT S TAB PO PRN (17:54)
[2019-02-11 18:17] LABS: SOURCE, BODY FLUID ALBUMIN ASCITES; SOURCE, BODY FLUID GLUCOSE PERITONEAL; SOURCE, BODY FLUID TOT PROTEIN PERITONEAL; TOTAL PROTEIN, BODY FLUID 0.9 G/DL (NOT ESTABLISHED)
[2019-02-11 22:00] VITALS: BP 108/52
[2019-02-12 06:00] VITALS: BP 108/53
[2019-02-12] MEDS: LevoFLOXacin 750 MG TABLET PO SCH (06:56)
--- NOTE | 2019-02-12 07:46 | ECGEPIP ---
[facility] Test Date: 2019-02-11 Pat Name: SAROJ JOHNSON Department: Room: [place] [address] Gender: Female [employer]: : [id number] Requested By: CAROL Berumen Order Number: [id number] Reading MD: Ashley Walker Measurements Intervals Dewitt Rate: 66 P: 48 MD: 136 QRS: 5 QRSD: 102 T: 32 QT: 454 QTc: 479 Interpretive Statements SINUS RHYTHM SIMILAR TO 02/08/19 Electronically Signed on 02-12-2019 7:45:58 EDT by Ashley Walker
[2019-02-12] MEDS: SPIRONOLACTONE 6.25 MG PER 1/4 TAB PO SCH (09:57)
[2019-02-12] MEDS: FERROUS SULFATE 325MG TAB PO SCH ×2 (09:57→23:43)
[2019-02-12] MEDS: SPIRONOLACTONE 25 MG TAB PO SCH ×2 (09:57→17:41)
[2019-02-12] MEDS: PANTOPRAZOLE 40MG TAB (PROTONIX) PO SCH (09:57)
[2019-02-12] MEDS: LEVEMIR (INSULIN DETEMIR) 1 UNITS/0.01ML SC SCH ×2 (09:58→23:45)
[2019-02-12] MEDS: ESCITALOPRAM OXALATE 10 MG TAB (LEXAPRO) PO SCH (09:58)
[2019-02-12] MEDS: MIDODRINE 5 MG TAB PO SCH ×2 (09:58→16:01)
[2019-02-12] MEDS: rOPINIRole 1MG TAB PO SCH ×2 (09:58→23:43)
[2019-02-12] MEDS: HumaLOG INSULIN (NovoLOG) PER UNIT SC SCH ×4 (09:59→23:43)
[2019-02-12 10:01] LABS: HEMATOCRIT 29.1 % (36.0-47.0); HEMOGLOBIN 8.7 g/dl (12.0-15.5); MEAN CORPUSCULAR HEMOGLOBIN 30.2 pg (27.0-33.0); MEAN CORPUSCULAR HGB CONC 29.9 g/dl (32.0-36.5); PLATELET COUNT, AUTOMATED 64 10^3/uL (150-450); RED BLOOD COUNT 2.88 10^6/uL (4.00-5.40); WHITE BLOOD COUNT 2.4 10^3/uL (4.0-10.0)
[2019-02-12 10:45] LABS: CALCIUM LEVEL 8.3 MG/DL (8.8-10.2); CREATININE FOR GFR 1.11 MG/DL (0.55-1.30); GLOMERULAR FILTRATION RATE 52.7 (>45); POTASSIUM SERUM 4.2 MEQ/L (3.5-5.1)
[2019-02-12 11:48] VITALS: O2SAT 94
--- NOTE | 2019-02-12 11:48 | REP ---
Ultrasound-guided paracentesis The procedure was performed by ARMANDO Shepherd, under the direct supervision of Dr. Cardoza. The risks and benefits of the procedure were explained to the patient and informed consent was obtained both verbally and written. Directly prior to the start of the procedure, a formal timeout was completed in the procedure room. Under ultrasound guidance, the largest pocket of fluid in the left flank was localized and skin was marked. The skin was then prepped and draped in a sterile fashion. 10 ml of 1% lidocaine was used as a local anesthetic. Using ultrasound guidance, an 8-Romansh multi side-hole catheter was inserted using trocar technique. 1,200 mL of pink colored fluid was withdrawn and discarded. The patient tolerated the procedure well and there were no immediate complications. After the appropriate monitored convalescence the patient was discharged from the department. Reviewed by ARMANDO Montez 02/11/2019 05:20 P Electronically Signed by Avelino Cardoza MD 02/12/2019 11:40 A
[2019-02-12 14:00] VITALS: BP 105/51
[2019-02-12] MEDS: traMADol 50 MG TAB PO PRN (16:02)
[2019-02-12 18:20] LABS: SODIUM, URINE 17 MEQ/L
--- NOTE | 2019-02-12 20:54 | IPNPDOC ---
Date Seen The patient was seen on 02/12/19. Progress Note SUBJECTIVE: Patient reports pain/discomfort over site of paracentesis. Asking for pain medications, otherwise denies any other complaints. OBJECTIVE PHYSICAL EXAMINATION: VITAL SIGNS: Please see below. General: No acute distress, Alert Eyes: Normal sclera, EOMI, MALCOLM HENT: Atraumatic, neck supple, moist mucous membranes Cardiovascular: Normal rate, normal rhythm. Pulmonary: Clear to auscultation b/l, no wheezing GI: Soft, mildly tender over L. abdomen over site of paracentesis. Neuro: CN grossly intact. No focal deficits. Strengths equal b/l. Psych: oriented x 3 LABORATORY DATA, IMAGING STUDIES, MICROBIOLOGY: Please see below. ASSESSMENT AND PLAN: 1. HICKS - End stage liver disease requiring frequent paracentesis. Recently admitted and had 7L drained. - Hypotensive on presentation, has had albumin transfusion. Paracentesis on 02/08 with drainage of 1.5L and again 02/11/19. - Discussed with [facility] unit nurse, Dr. Marian Simon, does not want patient to be transferred as inpatient at this time as she does not meet criteria for TIPS. - Wants compliance with low sodium <2g diet, maximized on diuretics Aldactone and Spironolactone. - Can increase to max dose of Midodrine up to 12.5mg TID with albumin infusions to keep MAP >65 and monitor 24h urine sodium. 2. IDDM - diabetic diet. Accuchecks and ISS. 3. Recurrent syncope - likely 2/2 end stage liver disease with hypotension. - place on fall precautions. - Hold BP meds. 4. Loculated R. pleural effusion - small compare to previous images. - No fevers or leukocytosis. Consider thoracentesis or thoracic surgery consult for drain placement if worsens. DVT ppx: SCDs DISPOSITION: Per daughter patient needs placement. VS, I&O, 24H, Fishbone Vital Signs/I&O Vital Signs Date Time Temp Pulse Resp B/P (MAP) Pulse Ox O2 Delivery O2 Flow Rate FiO2 02/12/19 16:32 18 02/12/19 14:00 98.0 72 105/51 (69) 94 02/12/19 11:48 Room Air I&O- Last 24 Hours up to 6 AM 02/12/19 05:59 Intake Total 1610 ml Output Total 1225 ml Balance 385 ml Laboratory Data 24H LABS Laboratory Tests 2 02/12/19 07:46: Bedside Glucose (Misc Panel) 137H 02/12/19 09:42: Nucleated Red Blood Cells % (auto) 0.0, Immature Platelet Fraction 6.1, Anion Gap 8, Glomerular Filtration Rate 52.7, Blood Urea Nitrogen 14, Creatinine 1.11, Sodium Level 141, Potassium Level 4.2, Chloride Level 108H, Carbon Dioxide Level 25, Calcium Level 8.3L 02/12/19 11:15: Bedside Glucose (Misc Panel) 171H 02/12/19 16:42: Bedside Glucose (Misc Panel) 160H CBC/BMP Laboratory Tests 02/12/19 09:42 Red Blood Count 2.88 L, Mean Corpuscular Volume 101.0 H, Mean Corpuscular Hemoglobin 30.2, Mean Corpuscular Hemoglobin Concent 29.9 L, Red Cell Distribution Width 18.9 H, Calcium Level 8.3 L Microbiology Microbiology 02/07/19 Blood Culture - Final, Complete NO GROWTH AFTER 5 DAYS 02/07/19 Blood Culture - Final, Complete NO GROWTH AFTER 5 DAYS 02/11/19 Acid Fast Stain, Received Pending 02/11/19 Mycobacterial Culture, Received Pending 02/11/19 Fungal Smear, Received Pending 02/11/19 Fungal Culture, Received Pending 02/11/19 Gram Stain - Final, Resulted 02/11/19 Body Fluid Culture, Resulted Pending 02/11/19 Anaerobic Culture, Resulted Pending 02/08/19 Acid Fast Stain, Received Pending 02/08/19 Mycobacterial Culture, Received Pending 02/08/19 Fungal Smear, Received Pending 02/08/19 Fungal Culture, Received Pending 02/08/19 Gram Stain - Final, Complete 02/08/19 Body Fluid Culture - Final, Complete 02/08/19 Anaerobic Culture - Final, Complete 02/08/19 MRSA Screen - Final, Complete 02/07/19 Urine Culture - Final, Complete Strep Agalactiae Group B MARY CURIEL MD Feb 12, 2019 20:54
[2019-02-12 20:58] LABS: SODIUM 24 HOUR URINE 15 MEQ/24HR (40-220); TOTAL VOLUME, URINE 900 ML
[2019-02-12 22:00] VITALS: BP 131/57
[2019-02-13] MEDS: traMADol 50 MG TAB PO PRN ×2 (00:23→09:28)
[2019-02-13 06:00] VITALS: BP 100/60
[2019-02-13] MEDS: LevoFLOXacin 750 MG TABLET PO SCH (06:03)
[2019-02-13 06:10] LABS: HEMATOCRIT 27.4 % (36.0-47.0); HEMOGLOBIN 8.1 g/dl (12.0-15.5); MEAN CORPUSCULAR HEMOGLOBIN 30.1 pg (27.0-33.0); MEAN CORPUSCULAR HGB CONC 29.6 g/dl (32.0-36.5); MEAN CORPUSCULAR VOLUME 101.9 fl (80.0-96.0); RED BLOOD COUNT 2.69 10^6/uL (4.00-5.40); WHITE BLOOD COUNT 2.2 10^3/uL (4.0-10.0)
[2019-02-13 06:14] LABS: PLATELET COUNT, AUTOMATED 62 10^3/uL (150-450)
[2019-02-13 06:36] LABS: CALCIUM LEVEL 7.9 MG/DL (8.8-10.2); CREATININE FOR GFR 1.16 MG/DL (0.55-1.30); GLOMERULAR FILTRATION RATE 50.1 (>45); POTASSIUM SERUM 4.2 MEQ/L (3.5-5.1)
[2019-02-13] MEDS: ESCITALOPRAM OXALATE 10 MG TAB (LEXAPRO) PO SCH (09:26)
[2019-02-13] MEDS: MIDODRINE 5 MG TAB PO SCH ×2 (09:26→15:35)
[2019-02-13] MEDS: SPIRONOLACTONE 6.25 MG PER 1/4 TAB PO SCH (09:26)
[2019-02-13] MEDS: PANTOPRAZOLE 40MG TAB (PROTONIX) PO SCH (09:27)
[2019-02-13] MEDS: rOPINIRole 1MG TAB PO SCH (09:27)
[2019-02-13] MEDS: SPIRONOLACTONE 25 MG TAB PO SCH ×2 (09:27→17:27)
[2019-02-13] MEDS: FERROUS SULFATE 325MG TAB PO SCH (09:27)
[2019-02-13] MEDS: LEVEMIR (INSULIN DETEMIR) 1 UNITS/0.01ML SC SCH (09:28)
[2019-02-13] MEDS: HumaLOG INSULIN (NovoLOG) PER UNIT SC SCH ×3 (09:28→17:28)
[2019-02-13 10:36] VITALS: O2SAT 95
--- NOTE | 2019-02-13 13:41 | DS.PDOC ---
Discharge Summary General Date of Admission Feb 07, 2019 at 15:37 Date of Discharge 02/13/19 Discharge Summary PROCEDURES PERFORMED DURING STAY: Paracentesis x2 ADMITTING DIAGNOSES: 1. Decompensated End stage liver disease- HICKS 2. Atypical/pleuritic chest pain 3. DM 4. Syncope/Hypotension 5. R. pleural effusion 6. Anxiety/Depression DISCHARGE DIAGNOSES: 1. Decompensated End stage liver disease- HICKS 2. Atypical/pleuritic chest pain 3. DM 4. Syncope/Hypotension 5. R. pleural effusion 6. Anxiety/Depression COMPLICATIONS/CHIEF COMPLAINT: Hypotension. HISTORY OF PRESENT ILLNESS: "Patient is a 63-year-old female, past medical history significant for nonalcoholic steatohepatitis and end-stage liver disease requiring frequent paracentesis,insulin-dependent diabetes mellitus, morbid obesity, hypertension, portal hypertension, presenting to the emergency room on account of shortness of breath and abdominal pain. Patient was recently discharged from this facility a week ago. During that ho spitalization, she had paracentesis and drainage of 7 L ascites fluid. At discharge, patient states after dressing was taken off, she started noticing significant drainage from paracentesis site. Drainage was soaking through her underwear and any dressing she put on it. She called and informed her primary care physician who called her automation technician at [facility] (Dr. Cuba). Last night, however drainage was so much that patient took her granddaughter's colostomy bag and placed over drainage site. Today, patient had multiple episodes of syncope and called her primary care physician who recommended coming to the emergency room. On arrival, blood pressure was 109/49, blood pressure further trended down to systolic blood pressure of 80s and map of 45. Preliminary investigative studies in the emergency room with CT abdomen and pelvis, demonstrated moderate ascites with edema, small partially loculated right pleural effusion, decreased from prior examination. Laboratory data was si gnificant for hemoglobin of 8.9, platelets of 85, GFR 43, creatinine 1.3, albumin globulin ratio 0.77 with an albumin level of 2.7 and total protein of 6.2. Blood glucose was also elevated at 305. This was not fasting blood glucose. Hospitalist team was endorsed for evaluation and possible admission for further management" HOSPITAL COURSE: Patient underwent paracentesis x 2, received albumin while reducing aldactone dose and hel lasix/nadolol with improvement in BP and symptoms. Patient has been working with PT and made significant progress and clear for home discharge. She was seen by GI who recommended a referral to [facility] for TIPS procedure. Call was made out to [place] and spoke to Dr. Marian Simon, who does not recommend in patient follow up at this time as patient is not a candidate for TIPS and should optimize therapy including diuretics aldactone, maintain on low sodium diet <2g diet and increase to max dose of Midodrine 12.5mg TID with albumin infusions to keep MAP >65 if needed. Patient symptoms resolved and feels well. To be discharged to f/u with PMD as well as GI in [place] Dr. Cadena, appt February 20. Has weekly schedule paracentesis. TO hold Nadolol and reduce lasix dose at this time given hypotension. BP maintain MAP 70-80s now, if continues to be stable, can be resumed home dose with PMD or GI. Patient also noted to have R. pleural effusion but is smaller compare to previous imaging with no evidence of infection including fever or leukocytosis. Have just been monitored. If it get worse, should see cardiothoracic for drain placement or tap. DISCHARGE MEDICATIONS: Please see below. ALLERGIES: Please see below. PHYSICAL EXAMINATION ON DISCHARGE: VITAL SIGNS: Please see below. General: No acute distress, Alert Eyes: Normal sclera, EOMI, MALCOLM HENT: Atraumatic, neck supple, moist mucous membranes Cardiovascular: Normal rate, normal rhythm. Pulmonary: Clear to auscultation b/l, no wheezing GI: Soft, mildly tender over L. abdomen over site of paracentesis. Neuro: CN grossly intact. No focal deficits. Strengths equal b/l. Psych: oriented x 3 LABORATORY DATA: Please see below. IMAGING: Abd/Pelvis CT- Impression: 1. Small partially loculated right pleural effusion decreased from prior examination. 2. Cirrhosis with portal venous hypertension including moderate ascites and moderate edematous infiltration to the subcutaneous tissues. Splenomegaly and portal-venous collateral circulation including recanalized umbilical vein noted. 3. Cholelithiasis. 4. Diverticulosis. ACTIVITY: [As tolerated]. DIET: Low sodium diet <2 g DISCHARGE PLAN: Hold Nadolol and reduce Lasix dose to 40 mg daily now. Monitor BP, can re-adjust to normal dose with PMD or GI if BP stable. f/u with PMD within 1 week and GI on February 20/Dr. Cadena. c/w routine paracentesis. DISPOSITION: Home. DISCHARGE INSTRUCTIONS: Hold Nadolol and reduce Lasix dose to 40 mg daily now. Monitor BP, can re-adjust to normal dose with PMD or GI if BP stable. f/u with PMD within 1 week and GI on February 20/Dr. Cadena. c/w routine paracentesis. ITEMS TO FOLLOWUP ON ON OUTPATIENT: 1. None DISCHARGE CONDITION: [Stable]. TIME SPENT ON DISCHARGE: 35 minutes. Vital Signs/I&Os Vital Signs Date Time Temp Pulse Resp B/P (MAP) Pulse Ox O2 Delivery O2 Flow Rate FiO2 02/13/19 10:36 95 Room Air 02/13/19 10:36 75 18 02/13/19 06:00 97.1 100/60 (73) I&O- Last 24 Hours up to 6 AM 02/13/19 06:00 Intake Total 1160 ml Output Total 410 ml Balance 750 ml Laboratory Data Labs 24H Laboratory Tests 2 02/12/19 16:42: Bedside Glucose (Misc Panel) 160H 02/12/19 20:58: Bedside Glucose (Misc Panel) 215H 02/13/19 05:33: Nucleated Red Blood Cells % (auto) 0.0, Anion Gap 7L, Glomerular Filtration Rate 50.1, Blood Urea Nitrogen 18, Creatinine 1.16, Sodium Level 141, Potassium Level 4.2, Chloride Level 108H, Carbon Dioxide Level 26, Calcium Level 7.9L 02/13/19 11:29: Bedside Glucose (Misc Panel) 281H CBC/BMP Laboratory Tests 02/13/19 05:33 Red Blood Count 2.69 L, Mean Corpuscular Volume 101.9 H, Mean Corpuscular Hemoglobin 30.1, Mean Corpuscular Hemoglobin Concent 29.6 L, Red Cell Distribution Width 19.2 H, Calcium Level 7.9 L FSBS Laboratory Tests Test 02/12/19 16:42 02/12/19 20:58 02/13/19 11:29 Range/Units Bedside Glucose (Misc Panel) 160 215 281 80-115 MG/DL Microbiology Microbiology 02/07/19 Blood Culture - Final, Complete NO GROWTH AFTER 5 DAYS 02/07/19 Blood Culture - Final, Complete NO GROWTH AFTER 5 DAYS 02/11/19 Acid Fast Stain, Received Pending 02/11/19 Mycobacterial Culture, Received Pending 02/11/19 Fungal Smear, Received Pending 02/11/19 Fungal Culture, Received Pending 02/11/19 Gram Stain - Final, Complete 02/11/19 Body Fluid Culture - Final, Complete 02/11/19 Anaerobic Culture - Final, Complete 02/08/19 Acid Fast Stain, Received Pending 02/08/19 Mycobacterial Culture, Received Pending 02/08/19 Fungal Smear, Received Pending 02/08/19 Fungal Culture, Received Pending 02/08/19 Gram Stain - Final, Complete 02/08/19 Body Fluid Culture - Final, Complete 02/08/19 Anaerobic Culture - Final, Complete 02/08/19 MRSA Screen - Final, Complete 02/07/19 Urine Culture - Final, Complete Strep Agalactiae Group B Discharge Medications Scheduled Aspirin (Aspirin EC) 81 Mg Tabec, 81 MG PO DAILY, (Reported) Calcium Carbonate/Vitamin D3 (Calcium 500-Vit D3 600 Tablet) 1 Tab Tab, 1 TAB PO BID, (Reported) Escitalopram Oxalate (Escitalopram Oxalate) 20 Mg Tab, 20 MG PO DAILY, (Reported) Esomeprazole Magnesium (Nexium) 40 Mg Cap, 40 MG PO DAILY, (Reported) Ferrous Sulfate (Ferrous Sulfate) 325 Mg Tab, 325 MG PO BID, (Reported) Furosemide (Lasix) 40 Mg Tab, 40 MG PO BID, (Reported) TAKES WITH 20MG TABLET, TOTAL OF 60MG BID Insulin Glargine,Hum.rec.anlog (Lantus Solostar) 100 Unit/1 Ml Insuln.pen, 94 UNITS SC BID, (Reported) Insulin Human Lispro (Novolog) 100 U/Ml Inj, 1 DOSE SC ACHS, (Reported) PER SLIDING SCALE Meclizine HCl (Meclizine HCl) 25 Mg Tab, 25 MG PO BID, (Reported) Ropinirole HCl (Ropinirole HCl) 2 Mg Tablet, 2 MG PO BID, (Reported) Spironolactone (Spironolactone) 100 Mg Tablet, 100 MG PO BID, (Reported) HOLD FOR SYSTOLIC BP UNDER 105 Scheduled PRN Amitriptyline HCl (Amitriptyline HCl) 10 Mg Tablet, 10 MG PO PRN PRN for INSOMNIA, (Reported) Allergies Coded Allergies: TAPE (Verified Allergy, Mild, 01/23/19) acetaminophen (Verified Adverse Reaction, Intermediate, LIVER PROBLEMS, 01/23/19) candesartan (Verified Adverse Reaction, Intermediate, CHEST PAIN, 01/23/19) hydrochlorothiazide (Verified Adverse Reaction, Intermediate, CHEST PAIN, 01/23/19) ibuprofen (Verified Adverse Reaction, Intermediate, LIVER PROBLEMS, 01/23/19) MARY CURIEL MD Feb 13, 2019 13:41
[2019-02-13] MEDS ORDERED: MIDO5TA PO (16:53)
== END 2019-02-13 17:40 | disposition home health service (06) | DRG 441 ==
LOC: M ED 11:14 → EDBD 11:14 → M ED INP 15:37 → M ICU 20:22 → M MSPAV 02-09 02:08
PROVIDERS: ADMIT Internal Medicine; ATTEND Student in an Organized Health Care Education/Training Program
PROC: 0W9G3ZZ Drainage of Peritoneal Cavity, Percutaneous Approach (ICD-10-PCS; principal; 2019-02-08)
PROC: 0W9G3ZZ Drainage of Peritoneal Cavity, Percutaneous Approach (ICD-10-PCS; 2019-02-11)
DX: K75.81 Nonalcoholic steatohepatitis (NASH) (principal); N18.6 End stage renal disease; J90 Pleural effusion, not elsewhere classified; K76.6 Portal hypertension; R18.8 Other ascites; D68.9 Coagulation defect, unspecified; D61.818 Other pancytopenia; I12.0 Hypertensive chronic kidney disease with stage 5 chronic kidney disease or end stage renal disease; F41.9 Anxiety disorder, unspecified; F32.9 Major depressive disorder, single episode, unspecified; I95.9 Hypotension, unspecified; E11.9 Type 2 diabetes mellitus without complications; E66.9 Obesity, unspecified; K80.20 Calculus of gallbladder without cholecystitis without obstruction; K57.30 Diverticulosis of large intestine without perforation or abscess without bleeding; Z79.4 Long term (current) use of insulin; Z79.899 Other long term (current) drug therapy; Z88.8 Allergy status to other drugs, medicaments and biological substances; Z88.6 Allergy status to analgesic agent; D69.6 Thrombocytopenia, unspecified; E78.5 Hyperlipidemia, unspecified

== ENCOUNTER → 2019-02-20 | Outpatient (REF) | payer OTHER ==
[~2019-02-20] MED LIST changes: +ALBU17IN2 INH; +AMIT10TA PO; +GUAI100S51 PO; +IRON27TA2 PO; +LACT10SO29 PO; +Lactulose Syrup PO; +MIDO5TA PO; +OYST500T13 PO; -OYST500T78 PO; +PANT-23 PO; +PANT40TA3 PO; +XIFA550T PO
== END ==
LOC: M SFHCLERA 16:19
PROVIDERS: ATTEND Family Medicine
DX: D64.9 Anemia, unspecified (principal)

== ENCOUNTER 2019-02-21 15:48 | Inpatient (IN) | payer OTHER, MEDICAID ==
[~2019-02-21] VITALS: Ht 154.9 cm; Wt 101.2 kg
[~2019-02-21 15:48] MED LIST changes: -ALBU17IN2 INH; -GUAI100S51 PO; -Lactulose Syrup PO; -MECL-68 PO; +MECL1TAB31 PO; -PANT40TA3 PO; -XIFA550T PO
[2019-02-21 16:49] LABS: BASO % 0.7 % (0.0-1.0); EOS # 0.3 10^3/uL (0.0-0.50); EOS % 5.4 % (0.0-3.0); HEMATOCRIT 34.7 % (36.0-47.0); HEMOGLOBIN 10.5 g/dl (12.0-15.5); LYMPH % 16.2 % (24.0-44.0); MEAN CORPUSCULAR HEMOGLOBIN 31.2 pg (27.0-33.0); MEAN CORPUSCULAR HGB CONC 30.3 g/dl (32.0-36.5); MONO # 0.6 10^3/uL (0.0-0.8); MONO % 10.8 % (0.0-5.0); NEUTROPHILS % 66.7 % (36.0-66.0); PLATELET COUNT, AUTOMATED 110 10^3/uL (150-450); RED BLOOD COUNT 3.37 10^6/uL (4.00-5.40); WHITE BLOOD COUNT 5.9 10^3/uL (4.0-10.0)
[2019-02-21 17:40] LABS: BLOOD UREA NITROGEN 17 MG/DL (7-18); CALCIUM LEVEL 8.3 MG/DL (8.8-10.2); CARBON DIOXIDE LEVEL 23 MEQ/L (21-32); CHLORIDE LEVEL 109 MEQ/L (98-107); CK-MB VALUE MASS < 1.0 NG/ML (<3.6); CPK CREATINE PHOSPHOKINASE 58 U/L (26-192); CREATININE FOR GFR 1.05 MG/DL (0.55-1.30); GLOMERULAR FILTRATION RATE 56.2 (>45); GLUCOSE, FASTING 70 MG/DL (70-100); MAGNESIUM LEVEL 2.4 MG/DL (1.8-2.4); MB/CK RELATIVE INDEX 1.72 (< OR =4); POTASSIUM SERUM 4.6 MEQ/L (3.5-5.1); SODIUM LEVEL 140 MEQ/L (136-145); TROPONIN I < 0.02 NG/ML (< 0.10)
--- NOTE | 2019-02-21 19:33 | ECGEPIP ---
[facility] - ED Test Date: 2019-02-21 Pat Name: SAROJ JOHNSON Department: Room: - Gender: Female Pitch Gatherer: : 1955 Requested By: Bre Lamar Order Number: [id number] Reading MD: Bre Lamar Measurements Intervals [place] Rate: 60 P: 50 DC: 153 QRS: QRSD: 94 T: 48 QT: 439 QTc: 441 Interpretive Statements SINUS RHYTHM SIMILAR 02/11/19 Electronically Signed on 02-21-2019 19:33:26 EDT by Bre Lamar
[2019-02-22 00:09] LABS: CK-MB VALUE MASS < 1.0 NG/ML (<3.6); CPK CREATINE PHOSPHOKINASE 43 U/L (26-192); MB/CK RELATIVE INDEX 2.33 (< OR =4); TROPONIN I < 0.02 NG/ML (< 0.10)
[2019-02-22] MEDS ORDERED: MIDO5TA PO (01:16)
[2019-02-22] MEDS ORDERED: AMITRIPTYLINE 10 MG TAB PO PRN (02:30)
[2019-02-22] MEDS ORDERED: GLUCOSE 4 GM CHEW TABLET PO PRN (02:30)
[2019-02-22] MEDS ORDERED: DEXTROSE 50% 50 ML SYRINGE IV PRN (02:30)
[2019-02-22] MEDS ORDERED: GLUCAGON FOR INJ 1 MG VIAL (J1610) SC PRN (02:30)
--- NOTE | 2019-02-22 03:08 | HPEPDOC ---
General Date of Admission Feb 22, 2019 Date of Service: Feb 22, 2019 Chief Complaint The patient is a 63-year-old female admitted with a reason for visit of Ascites. History of Present Illness 63-year-old female, past medical history significant for insulin-dependent DMII, End stage liver disease 2/2 HICKS with ascites requiring frequent paracentesis, thrombocytopenia, hyperlipidemia DARIA, Vertigo, Recurrent pleural effusion s/p talc pleurodesis, Morbid obesity, Anxiety and depression, H/o recurrent syncopal episodes presents to the ER from her primary care physician's office with a chief complaint of increasingly distended abdomen. Of note, the patient has required abdominal paracentesis every week for the past 4 weeks with her last session being 11 days ago. The patient states that since her last paracentesis on 02/11 she has gained 20 pounds. She denies any dietary indiscretion, and notes that she has been taking her medications faithfully. She states that she followed up with her inspector conveyor line Dr. Cuba in [place] yesterday, and was told that they are considering a TIPS procedure. During this time, the patient denies any fevers, chills, chest pain, palpitations, abdominal pain, or any nausea/vomiting/diarrhea. The patient will be admitted to the hospitalist service for paracentesis. Home Medications Scheduled Aspirin (Aspirin EC) 81 Mg Tabec, 81 MG PO DAILY, (Reported) Calcium Carbonate/Vitamin D3 (Calcium 500-Vit D3 600 Tablet) 1 Tab Tab, 1 TAB PO BID, (Reported) Escitalopram Oxalate (Escitalopram Oxalate) 20 Mg Tab, 20 MG PO DAILY, (Reported) Esomeprazole Magnesium (Nexium) 40 Mg Cap, 40 MG PO DAILY, (Reported) Ferrous Sulfate (Ferrous Sulfate) 325 Mg Tab, 325 MG PO BID, (Reported) Furosemide (Lasix) 40 Mg Tab, 40 MG PO BID, (Reported) Insulin Glargine,Hum.rec.anlog (Lantus Solostar) 100 Unit/1 Ml Insuln.pen, 94 UNITS SC BID, (Reported) Insulin Human Lispro (Novolog) 100 U/Ml Inj, 1 DOSE SC ACHS, (Reported) PER SLIDING SCALE Meclizine HCl (Meclizine HCl) 25 Mg Tab, 25 MG PO BID, (Reported) Midodrine HCl (Midodrine HCl) 5 Mg Tablet, 5 MG PO BID, (Reported) 0800, 1600 Spironolactone (Spironolactone) 100 Mg Tablet, 100 MG PO BID, (Reported) Scheduled PRN Amitriptyline HCl (Amitriptyline HCl) 10 Mg Tablet, 10 MG PO QHS PRN for INSOMNIA, (Reported) Ropinirole HCl (Ropinirole HCl) 2 Mg Tablet, 2 MG PO BID PRN for RESTLESSNESS, (Reported) Allergies Coded Allergies: TAPE (Verified Allergy, Mild, 01/23/19) acetaminophen (Verified Adverse Reaction, Intermediate, LIVER PROBLEMS, 01/23/19) candesartan (Verified Adverse Reaction, Intermediate, CHEST PAIN, 01/23/19) hydrochlorothiazide (Verified Adverse Reaction, Intermediate, CHEST PAIN, 01/23/19) ibuprofen (Verified Adverse Reaction, Intermediate, LIVER PROBLEMS, 01/23/19) Past Medical History Medical History As noted in HPI. Surgical History Appendectomy Hysterectomy. Bilateral shoulder, surgery Left elbow surgery Right knee surgery Multiple D&C Social History * Smoker: Denies Alcohol: Denies Drugs: denies Review of Systems Other systems 10 point review of systems negative unless otherwise specified in HPI. Physical Examination General Exam: Positive: Alert, Cooperative, No Acute Distress ENT Exam: Positive: Atraumatic, Mucous membr. moist/pink Chest Exam: Positive: Diminished Heart Exam: Positive: Rate Normal, Normal S1, Normal S2 Abdomen Exam: Positive: Other (Distended); Negative: Tenderness Extremity Exam: Negative: Tenderness, Swelling Psych Exam: Positive: Oriented x 3 Vital Signs Vital Signs Date Time Temp Pulse Resp B/P (MAP) Pulse Ox O2 Delivery O2 Flow Rate FiO2 02/22/19 02:37 66 97 02/22/19 02:30 105/49 (67) 02/21/19 23:45 16 02/21/19 19:30 97.1 02/21/19 17:52 Room Air Laboratory Data Labs 24H Laboratory Tests 2 02/21/19 16:42: Immature Granulocyte % (Auto) 0.2, White Blood Count 5.9, Red Blood Count 3.37L, Hemoglobin 10.5L, Hematocrit 34.7L, Mean Corpuscular Volume 103.0H, Mean Corpuscular Hemoglobin 31.2, Mean Corpuscular Hemoglobin Concent 30.3L, Red Cell Distribution Width 19.6H, Platelet Count 110L, Neutrophils (%) (Auto) 66.7H, Lymphocytes (%) (Auto) 16.2L, Monocytes (%) (Auto) 10.8H, Eosinophils (%) (Auto) 5.4H, Basophils (%) (Auto) 0.7, Neutrophils # (Auto) 4.0, Lymphocytes # (Auto) 1.0L, Monocytes # (Auto) 0.6, Eosinophils # (Auto) 0.3, Basophils # (Auto) 0.0, Nucleated Red Blood Cells % (auto) 0.0, Anion Gap 8, Glomerular Filtration Rate 56.2, Blood Urea Nitrogen 17, Creatinine 1.05, Sodium Level 140, Potassium Level 4.6, Chloride Level 109H, Carbon Dioxide Level 23, Calcium Level 8.3L, Total Creatine Kinase 58, Magnesium Level 2.4, Creatine Kinase MB < 1.0, Creatine Kinase MB Relative Index 1.72, Troponin I < 0.02, Thyroid Stimulating Hormone (TSH) 1.750 02/21/19 17:52: Bedside Glucose (Misc Panel) 61L 02/21/19 18:19: Bedside Glucose (Misc Panel) 110 02/21/19 23:11: Bedside Glucose (Misc Panel) 85 02/21/19 23:18: Total Creatine Kinase 43, Creatine Kinase MB < 1.0, Creatine Kinase MB Relative Index 2.33, Troponin I < 0.02 CBC/BMP Laboratory Tests 02/21/19 16:42 Red Blood Count 3.37 L, Mean Corpuscular Volume 103.0 H, Mean Corpuscular Hemogl obin 31.2, Mean Corpuscular Hemoglobin Concent 30.3 L, Red Cell Distribution Width 19.6 H, Neutrophils (%) (Auto) 66.7 H, Lymphocytes (%) (Auto) 16.2 L, Monocytes (%) (Auto) 10.8 H, Eosinophils (%) (Auto) 5.4 H, Basophils (%) (Auto) 0.7, Neutrophils # (Auto) 4.0, Lymphocytes # (Auto) 1.0 L, Monocytes # (Auto) 0.6, Eosinophils # (Auto) 0.3, Basophils # (Auto) 0.0, Calcium Level 8.3 L, Total Creatine Kinase 58 Plan / VTE VTE Prophylaxis Ordered?: Yes Plan Plan Decompensated Liver Cirrhosis with Ascites Abdominal paracentesis ordered Patient will need Albumin after her procedure Continue diuretic therapy as ordered We will cont to monitor Diabetes mellitus Continue insulin regimen as ordered Hypertension Continue regimen Iron deficiency anemia Continue for sulfate GERD Continue PPI DVT prophylaxis TEDs/CONCHA Echavarria MD Feb 22, 2019 03:08
[2019-02-22 07:11] LABS: HEMATOCRIT 30.4 % (36.0-47.0); MEAN CORPUSCULAR HEMOGLOBIN 30.4 pg (27.0-33.0); MEAN CORPUSCULAR HGB CONC 29.6 g/dl (32.0-36.5); MEAN CORPUSCULAR VOLUME 102.7 fl (80.0-96.0); RED BLOOD COUNT 2.96 10^6/uL (4.00-5.40); WHITE BLOOD COUNT 2.3 10^3/uL (4.0-10.0)
[2019-02-22 07:23] LABS: PLATELET COUNT, AUTOMATED 64 10^3/uL (150-450)
[2019-02-22 07:26] LABS: INR 1.39; PROTHROMBIN TIME 16.8 SECONDS (11.8-14.0)
[2019-02-22 07:27] LABS: PARTIAL THROMBOPLASTIN TIME 29.4 SECONDS (25.0-38.4)
[2019-02-22 07:33] LABS: ALBUMIN 2.5 GM/DL (3.2-5.2); CALCIUM LEVEL 7.7 MG/DL (8.8-10.2); CREATININE FOR GFR 1.03 MG/DL (0.55-1.30); GLOMERULAR FILTRATION RATE 57.4 (>45); MAGNESIUM LEVEL 2.4 MG/DL (1.8-2.4); TOTAL PROTEIN 5.5 GM/DL (6.4-8.2)
[2019-02-22] MEDS ORDERED: MIDODRINE 5 MG TAB PO SCH (08:00)
[2019-02-22] MEDS: FERROUS SULFATE 325MG TAB PO SCH ×2 (08:39→20:56)
[2019-02-22] MEDS: HumaLOG INSULIN (NovoLOG) PER UNIT SC SCH ×4 (08:39→20:56)
[2019-02-22] MEDS: ASPIRIN 81 MG ENTERIC TAB PO SCH (08:39)
[2019-02-22] MEDS: ESCITALOPRAM OXALATE 10 MG TAB (LEXAPRO) PO SCH (08:40)
[2019-02-22] MEDS: PANTOPRAZOLE 40MG TAB (PROTONIX) PO SCH (08:40)
[2019-02-22] MEDS: LEVEMIR (INSULIN DETEMIR) 1 UNITS/0.01ML SC SCH ×2 (08:40→20:57)
[2019-02-22] MEDS: MIDODRINE 5 MG TAB PO SCH ×2 (12:00→16:50)
[2019-02-22] MEDS: MECLIZINE 25 MG TABLET PO SCH ×3 (12:12→20:56)
[2019-02-22] MEDS: metOLazone 5 MG TAB PO SCH (12:12)
[2019-02-22] MEDS: rOPINIRole 1MG TAB PO PRN (12:13)
[2019-02-22] MEDS ORDERED: MECLIZINE 25 MG TABLET PO ONE (12:15)
[2019-02-22] MEDS ORDERED: LIDOCAINE 1% MDV 20ML VIAL As Ordered ONE (14:38)
[2019-02-22 15:46] LABS: INR 1.29; PROTHROMBIN TIME 15.8 SECONDS (11.8-14.0)
[2019-02-22 15:47] LABS: PARTIAL THROMBOPLASTIN TIME 28.1 SECONDS (25.0-38.4)
[2019-02-22 15:50] VITALS: BP 140/67
[2019-02-22 16:16] LABS: ALBUMIN 2.6 GM/DL (3.2-5.2); ALT/SGPT 27 U/L (12-78); BILIRUBIN,DIRECT 0.3 MG/DL (0.0-0.2); BILIRUBIN,TOTAL 0.8 MG/DL (0.2-1.0); BLOOD UREA NITROGEN 15 MG/DL (7-18); CALCIUM LEVEL 7.8 MG/DL (8.8-10.2); CARBON DIOXIDE LEVEL 24 MEQ/L (21-32); CHLORIDE LEVEL 109 MEQ/L (98-107); CK-MB VALUE MASS < 1.0 NG/ML (<3.6); CPK CREATINE PHOSPHOKINASE 44 U/L (26-192); CREATININE FOR GFR 0.96 MG/DL (0.55-1.30); GLOMERULAR FILTRATION RATE > 60.0 (>45); GLUCOSE, FASTING 196 MG/DL (70-100); MB/CK RELATIVE INDEX 2.27 (< OR =4); POTASSIUM SERUM 4.5 MEQ/L (3.5-5.1); SODIUM LEVEL 141 MEQ/L (136-145); TROPONIN I < 0.02 NG/ML (< 0.10)
--- NOTE | 2019-02-22 16:19 | REP ---
Limited abdominal sonography: Ascites evaluation pre-procedure. History: Ascites. Patient was, for paracentesis. Preliminary scanning confirm the presence of moderate to large amount of ascites in the left lower quadrant. I am informed that the planned paracentesis was cancelled by the patient after she sustained a vasovagal reaction during the initial phase of the procedure. Electronically Signed by Lonny Fu MD 02/22/2019 08:21 P
--- NOTE | 2019-02-22 16:45 | IPNPDOC ---
Date Seen The patient was seen on 02/22/19. Progress Note SUBJECTIVE: Pt c/o weight gain,increased abdominal distension, and difficulty ambulating. no fever, chills, gi bleed,hematemesis, brbpr. c/o abd discomfort due to distension. despite low bp in the 90 mmHg, no c/o dizziness or lightheadedness. After last discharge, pt was still unable to get her TIPS procedure done. She is planned for paracentesis. OBJECTIVE: Physical Examination VITALS: PLS SEE BELOW General Exam: Positive: Alert, Cooperative, No Acute Distress anicteric no jaundice. speaks inf ull seentences ENT Exam: Positive: Atraumatic, Mucous membr. moist/pink Chest Exam: Positive: Diminished fine crackles at hte beases Heart Exam: Positive: Rate Normal, Normal S1, Normal S2 Abdomen Exam: Positive: Other (Distended); fluid wave(+) soft (+) bowel sounds no caput medusae Negative: Tenderness Extremity Exam: Negative: Tenderness, Swelling Psych Exam: Positive: Oriented x 3 LABORATORY DATA, IMAGING STUDIES, MICROBIOLOGY: PLS SEE BELOW ASSESSMENT AND PLAN: 63-year-old female, past medical history significant for insulin-dependent DMII, End stage liver disease 2/2 [place] with ascites requiring frequent paracentesis, thrombocytopenia, hyperlipidemia DARIA, Vertigo, Recurrent pleural effusion s/p talc pleurodesis, Morbid obesity, Anxiety and depression, H/o recurrent syncopal episodes presents to the ER from her primary care physician's office with a chief complaint of increasingly distended abdomen. Of note, the patient has required abdominal paracentesis every week for the past 4 weeks with her last session being 11 days ago. The patient states that since her last paracentesis on 02/11 she has gained 20 pounds. She denies any dietary indiscretion, and notes that she has been taking her medications faithfully. She states that she followed up with her all source intelligence technician Dr. Cuba in [place] yesterday, and was told that they are considering a TIPS procedure. During this time, the patient denies any fevers, chills, chest pain, palpitations, abdominal pain, or any nausea/vomiting/diarrhea. The patient will be admitted to the hospitalist service for paracentesis. Decompensated End stage liver disease -With recurrent ascites, thrombocytopenia, ascites, portal hypertension, varices, splenomegaly -Hemodynamically unstable with hypotension and recurrent syncope -Albumin transfusion given patient's low albumin status and poor oncotic pressure -Pt needs to be compliant with low sodium <2gram diet, maximized on diuretics specifically aldactone or spironolactone with normal renal function, and - if hypotensive, maximum dose of midodrine up to 12.5 mg tid with albumin infusions to keep MAP>65, and monitor 24hr urine sodium . -Interventional Radiologist, Dr. Gordillo, can see her on Monday, and can do TIPS in [place]. -paracentesis for comfort. no signs of SBP Insulin-dependent diabetes mellitus -Caloric controlled diet -Finger stick checks prior to meals and at bedtime -Coverage with insulin sliding scale protocol -Last A1c on 01/04 is 9.9 Loculated right pleural effusion -small as compared to previous imaging studies -no acute infectious etiology without fever or white count -if worsens, consider thoracentesis, thoracic surgical intervention or drain placement Hypotension -Likely due to osmotic diuresis -Hold antihypertensives -Transfuse 25% albumin -ICU admission - if hypotensive, maximum dose of midodrine up to 12.5 mg tid with albumin infusions to keep MAP>65, and monitor 24hr urine sodium . [place] with End-stage liver disease -previously referred to [facility], but has not followed up since. -will need outpt [facility] Pancytopenia -due to decompensated endstage liver disease -symptomatic care -supportive care -no acute indication for neupogen, rbc or platelet transfusion Coagulopathy due to liver disease -elevated INR -no signs of active bleeding -no acute indication for rbc transfusion Anxiety and depression -no suicidal ideation Morbid obesity bmi 45.7 complicating care probable daria monitor for hypercapnia DVT prophylaxis -Contraindicated in the setting of thrombocytopenia -Will use TEDs/SCDs VS, I&O, 24H, Fishbone Vital Signs/I&O Vital Signs Date Time Temp Pulse Resp B/P (MAP) Pulse Ox O2 Delivery O2 Flow Rate FiO2 02/22/19 05:00 73 18 101/58 (72) 95 02/21/19 19:30 97.1 02/21/19 17:52 Room Air Laboratory Data 24H LABS Laboratory Tests 2 02/21/19 16:42: Immature Granulocyte % (Auto) 0.2, White Blood Count 5.9, Red Blood Count 3.37L, Hemoglobin 10.5L, Hematocrit 34.7L, Mean Corpuscular Volume 103.0H, Mean Corpuscular Hemoglobin 31.2, Mean Corpuscular Hemoglobin Concent 30.3L, Red Cell Distribution Width 19.6H, Platelet Count 110L, Neutrophils (%) (Auto) 66.7H, Lymphocytes (%) (Auto) 16.2L, Monocytes (%) (Auto) 10.8H, Eosinophils (%) (Auto) 5.4H, Basophils (%) (Auto) 0.7, Neutrophils # (Auto) 4.0, Lymphocytes # (Auto) 1.0L, Monocytes # (Auto) 0.6, Eosinophils # (Auto) 0.3, Basophils # (Auto) 0.0, Nucleated Red Blood Cells % (auto) 0.0, Anion Gap 8, Glomerular Filtration Rate 56.2, Blood Urea Nitrogen 17, Creatinine 1.05, Sodium Level 140, Potassium Level 4.6, Chloride Level 109H, Carbon Dioxide Level 23, Calcium Level 8.3L, Total Creatine Kinase 58, Magnesium Level 2.4, Creatine Kinase MB < 1.0, Creatine Kinase MB Relative Index 1.72, Troponin I < 0.02, Thyroid Stimulating Hormone (TSH) 1.750 02/21/19 17:52: Bedside Glucose (Misc Panel) 61L 02/21/19 18:19: Bedside Glucose (Misc Panel) 110 02/21/19 23:11: Bedside Glucose (Misc Panel) 85 02/21/19 23:18: Total Creatine Kinase 43, Creatine Kinase MB < 1.0, Creatine Kinase MB Relative Index 2.33, Troponin I < 0.02 02/22/19 06:31: Nucleated Red Blood Cells % (auto) 0.0, Prothrombin Time 16.8H, Prothromb Time International Ratio 1.39, Activated Partial Thromboplast Time 29.4, Anion Gap 7L, Glomerular Filtration Rate 57.4, Blood Urea Nitrogen 16, Creatinine 1.03, Sodium Level 142, Potassium Level 4.0, Chloride Level 109H, Carbon Dioxide Level 26, Calcium Level 7.7L, Aspartate Amino Transf (AST/SGOT) 28, Alanine Aminotransferase (ALT/SGPT) 26, Alkaline Phosphatase 199H, Total Bilirubin 1.0, Total Protein 5.5L, Albumin 2.5L, Magnesium Level 2.4, Albumin/Globulin Ratio 0.83L 02/22/19 07:54: Bedside Glucose (Misc Panel) 185H CBC/BMP Laboratory Tests 02/21/19 16:42 Red Blood Count 3.37 L, Mean Corpuscular Volume 103.0 H, Mean Corpuscular Hemoglobin 31.2, Mean Corpuscular Hemoglobin Concent 30.3 L, Red Cell Distribution Width 19.6 H, Neutrophils (%) (Auto) 66.7 H, Lymphocytes (%) (Auto) 16.2 L, Monocytes (%) (Auto) 10.8 H, Eosinophils (%) (Auto) 5.4 H, Basophils (%) (Auto) 0.7, Neutrophils # (Auto) 4.0, Lymphocytes # (Auto) 1.0 L, Monocytes # (Auto) 0.6, Eosinophils # (Auto) 0.3, Basophils # (Auto) 0.0, Calcium Level 8.3 L, Total Creatine Kinase 58 02/22/19 06:31 Red Blood Count 2.96 L, Mean Corpuscular Volume 102.7 H, Mean Corpuscular Hemoglobin 30.4, Mean Corpuscular Hemoglobin Concent 29.6 L, Red Cell Distribution Width 19.5 H, Calcium Level 7.7 L, Aspartate Amino Transf (AST/SGOT) 28, Alanine Aminotransferase (ALT/SGPT) 26, Alkaline Phosphatase 199 H, Total Bilirubin 1.0, Total Protein 5.5 L, Albumin 2.5 L CAROL BOUCHER MD Feb 22, 2019 08:44
[2019-02-22] MEDS ORDERED: SPIRONOLACTONE 50 MG TAB PO ONE (18:00)
[2019-02-22] MEDS ORDERED: FUROSEMIDE 40 MG TAB PO ONE (18:00)
--- NOTE | 2019-02-22 20:22 | ECGEPIP ---
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
[2019-02-22] MEDS: MORPHINE 4 MG/ML 1ML VIAL/SYRINGE (J2270) IV PRN (20:58)
[2019-02-22 22:00] VITALS: BP 137/72
[2019-02-23 02:00] VITALS: BP 133/74
[2019-02-23 06:00] VITALS: BP 122/57
--- NOTE | 2019-02-23 06:42 | ECGEPIP ---
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
[2019-02-23] MEDS ORDERED: FUROSEMIDE 40 MG/4 ML VIAL (J1940) IV ONE ×2 (07:00→12:00)
[2019-02-23 07:20] LABS: HEMOGLOBIN 8.5 g/dl (12.0-15.5); MEAN CORPUSCULAR HEMOGLOBIN 30.8 pg (27.0-33.0); MEAN CORPUSCULAR HGB CONC 30.4 g/dl (32.0-36.5); MEAN CORPUSCULAR VOLUME 101.4 fl (80.0-96.0); RED BLOOD COUNT 2.76 10^6/uL (4.00-5.40); WHITE BLOOD COUNT 2.2 10^3/uL (4.0-10.0)
[2019-02-23 07:21] LABS: PLATELET COUNT, AUTOMATED 68 10^3/uL (150-450)
[2019-02-23 07:44] LABS: ALBUMIN 2.9 GM/DL (3.2-5.2); BILIRUBIN,TOTAL 0.7 MG/DL (0.2-1.0); CALCIUM LEVEL 8.4 MG/DL (8.8-10.2); CREATININE FOR GFR 1.16 MG/DL (0.55-1.30); GLOMERULAR FILTRATION RATE 50.1 (>45); MAGNESIUM LEVEL 2.5 MG/DL (1.8-2.4); POTASSIUM SERUM 3.7 MEQ/L (3.5-5.1); TOTAL PROTEIN 6.3 GM/DL (6.4-8.2)
[2019-02-23] MEDS: HumaLOG INSULIN (NovoLOG) PER UNIT SC SCH ×4 (08:38→21:00)
[2019-02-23] MEDS: SPIRONOLACTONE 50 MG TAB PO SCH ×2 (08:38→17:54)
[2019-02-23] MEDS: FERROUS SULFATE 325MG TAB PO SCH ×2 (08:39→22:01)
[2019-02-23] MEDS: PANTOPRAZOLE 40MG TAB (PROTONIX) PO SCH (08:39)
[2019-02-23] MEDS: MIDODRINE 5 MG TAB PO SCH ×3 (08:39→17:58)
[2019-02-23] MEDS: ESCITALOPRAM OXALATE 10 MG TAB (LEXAPRO) PO SCH (08:39)
[2019-02-23] MEDS: LEVEMIR (INSULIN DETEMIR) 1 UNITS/0.01ML SC SCH ×2 (08:39→22:01)
[2019-02-23] MEDS: MECLIZINE 25 MG TABLET PO SCH ×4 (08:39→22:01)
[2019-02-23] MEDS: ASPIRIN 81 MG ENTERIC TAB PO SCH (08:39)
[2019-02-23] MEDS: metOLazone 5 MG TAB PO SCH (08:42)
--- NOTE | 2019-02-23 08:48 | REP ---
Portable chest x-ray: Single view. History: Shortness of breath. Comparison chest x-ray: January 23, 2019. Findings: EKG monitoring electrodes overlie the chest. Heart is not felt to be enlarged. Left lung is clear. There are is evidence of eventration of the right hemidiaphragm. There is pleural thickening along the right lateral chest and I cannot exclude a small amount of right pleural fluid. No definite infiltrate. Impression: Increased pleuroparenchymal opacity right base question small amount of right pleural fluid. Otherwise no acute disease. Electronically Signed by Lonny Fu MD 02/23/2019 08:39 A
[2019-02-23] MEDS ORDERED: FUROSEMIDE 40 MG TAB PO SCH (09:00)
[2019-02-23 10:00] VITALS: BP 104/53
--- NOTE | 2019-02-23 11:50 | IPNPDOC ---
Date Seen The patient was seen on 02/23/19. Progress Note SUBJECTIVE: paracentesis 02/22/19 could not be done as pt became hypotensive with diaphoresis and pallor. pt was transfused albumin with increased dose of midodrine . This am, sbp 120-130mmHg. urine output stillminimal. Pt c/o weight gain,increased abdominal distension, and difficulty ambulating. no fever, chills, gi bleed,hematemesis, brbpr. c/o abd discomfort due to distension. despite low bp in the 90 mmHg, no c/o dizziness or lightheadedness. After last discharge, pt was still unable to get her TIPS procedure done. OBJECTIVE: Physical Examination VITALS: PLS SEE BELOW General Exam: Positive: Alert, Cooperative, No Acute Distress anicteric no jaundice. speaks inf ull seentences ENT Exam: Positive: Atraumatic, Mucous membr. moist/pink Chest Exam: Positive: Diminished fine crackles at hte beases Heart Exam: Positive: Rate Normal, Normal S1, Normal S2 Abdomen Exam: Positive: Other (Distended); fluid wave(+) soft (+) bowel sounds no caput medusae Negative: Tenderness Extremity Exam: Negative: Tenderness, Swelling Psych Exam: Positive: Oriented x 3 LABORATORY DATA, IMAGING STUDIES, MICROBIOLOGY: PLS SEE BELOW ASSESSMENT AND PLAN: 63-year-old female, past medical history significant for insulin-dependent DMII, End stage liver disease 2/2 OHARA with ascites requiring frequent paracentesis, thrombocytopenia, hyperlipidemia SAMRA, Vertigo, Recurrent pleural effusion s/p talc pleurodesis, Morbid obesity, Anxiety and depression, H/o recurrent syncopal episodes presents to the ER from her primary care physician's office with a chief complaint of increasingly distended abdomen. Of note, the patient has required abdominal paracentesis every week for the past 4 weeks with her last session being 11 days ago. The patient states that since her last paracentesis on 02/11 she has gained 20 pounds. She denies any dietary indiscretion, and notes that she has been taking her medications faithfully. She states that she followed up with her sign language teacher Dr. Cuba in [place] yesterday, and was told that they are considering a TIPS procedure. During this time, the p atient denies any fevers, chills, chest pain, palpitations, abdominal pain, or any nausea/vomiting/diarrhea. The patient will be admitted to the hospitalist service for paracentesis. Decompensated End stage liver disease -With recurrent ascites, thrombocytopenia, ascites, portal hypertension, vari lucila, splenomegaly -Hemodynamically unstable with hypotension and recurrent syncope -Albumin transfusion given patient's low albumin status and poor oncotic pressure -Pt needs to be compliant with low sodium <2gram diet, maximized on diuretics specifically aldactone or spironolactone with normal renal function, and - if hypotensive, maximum dose of midodrine up to 12.5 mg tid with albumin infusions to keep MAP>65, and monitor 24hr urine sodium . -Interventional Radiologist, Dr. Gordillo, can see her on Monday, and can do TIPS in [place]. -paracentesis 02/22/19 could not be done as pt became hypotensive with diaphoresis and pallor. pt was transfused albumin with increased dose of midodrine . Insulin-dependent diabetes mellitus -Caloric controlled diet -Finger stick checks prior to meals and at bedtime -Coverage with insulin sliding scale protocol -Last A1c on 01/04 is 9.9 Loculated right pleural effusion -small as compared to previous imaging studies -no acute infectious etiology without fever or white count -if worsens, consider thoracentesis, thoracic surgical intervention or drain placement Hypotension -Likely due to osmotic diuresis -Hold antihypertensives -Transfuse 25% albumin -ICU admission - if hypotensive, maximum dose of midodrine up to 12.5 mg tid with albumin infusions to keep MAP>65, and monitor 24hr urine sodium . Ohara with End-stage liver disease -previously referred to [facility], but has not followed up since. -will need outpt [facility] Pancytopenia -due to decompensated endstage liver disease -symptomatic care -supportive care -no acute indication for neupogen, rbc or platelet transfusion Coagulopathy due to liver disease -elevated INR -no signs of active bleeding -no acute indication for rbc transfusion Anxiety and depression -no suicidal ideation Morbid obesity bmi 45.7 complicating care probable samra monitor for hypercapnia DVT prophylaxis -Contraindicated in the setting of thrombocytopenia -Will use TEDs/SCDs VS, I&O, 24H, Fishbone Vital Signs/I&O Vital Signs Date Time Temp Pulse Resp B/P (MAP) Pulse Ox O2 Delivery O2 Flow Rate FiO2 02/23/19 06:00 97.8 76 20 122/57 (78) 93 02/22/19 11:00 Room Air I&O- Last 24 Hours up to 6 AM 02/23/19 06:00 Intake Total 920 ml Output Total 950 ml Balance -30 ml Laboratory Data 24H LABS Laboratory Tests 2 02/22/19 07:54: Bedside Glucose (Misc Panel) 185H 02/22/19 12:15: Bedside Glucose (Misc Panel) 268H 02/22/19 15:25: Prothrombin Time 15.8H, Prothromb Time International Ratio 1.29, Activated Partial Thromboplast Time 28.1, Anion Gap 8, Glomerular Filtration Rate > 60.0, Calcium Level 7.8L, Aspartate Amino Transf (AST/SGOT) 45H, Alanine Aminotr ansferase (ALT/SGPT) 27, Alkaline Phosphatase 218H, Total Bilirubin 0.8, Direct Bilirubin 0.3H, Ammonia 46H, Total Creatine Kinase 44, Creatine Kinase MB < 1.0, Creatine Kinase MB Relative Index 2.27, Troponin I < 0.02, Total Protein 6.0L, Albumin 2.6L, Albumin/Globulin Ratio 0.76L 02/22/19 16:39: Bedside Glucose (Misc Panel) 245H CBC/BMP Laboratory Tests 02/22/19 15:25 CAROL BOUCHER MD Feb 23, 2019 06:54
[2019-02-23 14:00] VITALS: BP 144/68
[2019-02-23] MEDS: MORPHINE 4 MG/ML 1ML VIAL/SYRINGE (J2270) IV PRN ×2 (14:51→22:03)
[2019-02-23 18:00] VITALS: BP 117/52
[2019-02-23 22:00] VITALS: BP 133/58
[2019-02-23] MEDS: rOPINIRole 1MG TAB PO PRN (22:01)
[2019-02-24] VITALS (8 sets, daily range): BP systolic 108–138; BP diastolic 52–70
[2019-02-24] MEDS ORDERED: metOLazone 5 MG TAB PO ONE (06:00)
[2019-02-24] MEDS ORDERED: FUROSEMIDE 40 MG/4 ML VIAL (J1940) IV SCH (06:00)
[2019-02-24] MEDS: rOPINIRole 1MG TAB PO PRN (06:38)
[2019-02-24 06:59] LABS: HEMATOCRIT 28.8 % (36.0-47.0); HEMOGLOBIN 8.8 g/dl (12.0-15.5); MEAN CORPUSCULAR HEMOGLOBIN 29.8 pg (27.0-33.0); MEAN CORPUSCULAR HGB CONC 30.6 g/dl (32.0-36.5); MEAN CORPUSCULAR VOLUME 97.6 fl (80.0-96.0); RED BLOOD COUNT 2.95 10^6/uL (4.00-5.40)
[2019-02-24 07:01] LABS: PLATELET COUNT, AUTOMATED 70 10^3/uL (150-450)
[2019-02-24 07:32] LABS: BILIRUBIN,TOTAL 0.6 MG/DL (0.2-1.0); CALCIUM LEVEL 8.5 MG/DL (8.8-10.2); CREATININE FOR GFR 1.42 MG/DL (0.55-1.30); GLOMERULAR FILTRATION RATE 39.6 (>45); POTASSIUM SERUM 3.8 MEQ/L (3.5-5.1); TOTAL PROTEIN 6.4 GM/DL (6.4-8.2)
[2019-02-24] MEDS: SPIRONOLACTONE 50 MG TAB PO SCH (08:17)
[2019-02-24] MEDS: MECLIZINE 25 MG TABLET PO SCH (08:17)
[2019-02-24] MEDS: HumaLOG INSULIN (NovoLOG) PER UNIT SC SCH (08:17)
[2019-02-24] MEDS: MIDODRINE 5 MG TAB PO SCH (08:17)
[2019-02-24] MEDS: ESCITALOPRAM OXALATE 10 MG TAB (LEXAPRO) PO SCH (08:17)
[2019-02-24] MEDS: ASPIRIN 81 MG ENTERIC TAB PO SCH (08:17)
[2019-02-24] MEDS: LEVEMIR (INSULIN DETEMIR) 1 UNITS/0.01ML SC SCH (08:18)
[2019-02-24] MEDS: PANTOPRAZOLE 40MG TAB (PROTONIX) PO SCH (08:18)
[2019-02-24] MEDS: FERROUS SULFATE 325MG TAB PO SCH (08:18)
--- NOTE | 2019-02-24 08:18 | REPVR ---
EXAM: XR Chest, 1 View EXAM DATE/TIME: 02/24/2019 6:48 AM CLINICAL HISTORY: 63 years old, female; Other: SOB; Additional info: SOB R/O pleural effusions. Ascites TECHNIQUE: Imaging protocol: XR of the chest, 1 view. COMPARISON: CR PORTABLE CHEST X-RAY 02/23/2019 7:05 AM FINDINGS: Lungs: There is again right basilar atelectasis with some scarring in the right midlung. The lungs are otherwise clear. Pleural space: A very small right pleural effusion may be present. The left costophrenic angle is sharp. No pneumothorax is identified. Heart/Mediastinum: The cardiomediastinal silhouette is fairly stable in appearance. Diaphragm: There is again eventration of the right hemidiaphragm. Bones/joints: Unremarkable. IMPRESSION: Stable radiographic appearance of the chest since one day prior. Electronically signed by: Tony Ron On 02/24/2019 08:18:31 AM
[2019-02-24] MEDS ORDERED: ONDANSETRON 4MG/2ML VIAL (J2405) IV PRN (08:45)
[2019-02-24] MEDS ORDERED: ONDANSETRON 4MG/2ML VIAL (J2405) IV ONE (08:45)
--- NOTE | 2019-02-24 08:51 | IPNPDOC ---
Date Seen The patient was seen on 02/24/19. Progress Note SUBJECTIVE: Per RN, pt vomited blood scant amount at 0830 this am. being transferred to pcu for octreotide and protonix iv gtt. no brbpr, melena, black tarry stools. c/o abd distention. c/o sob,but anabella due to lasix, zaroxylyn, and spironolactone. bp stable on midodrine. this am increaseing abd distention and dickens. unable to further diurese due to renal failure.therefore, diuretics held until creatinine is back to baseline. OBJECTIVE: Physical Examination VITALS: PLS SEE BELOW General Exam: Positive: Alert, Cooperative, No Acute Distress anicteric no jaundice. speaks inf ull seentences ENT Exam: Positive: Atraumatic, Mucous membr. moist/pink Chest Exam: Positive: Diminished fine crackles at hte beases Heart Exam: Positive: Rate Normal, Normal S1, Normal S2 Abdomen Exam: Positive: Other (Distended); fluid wave(+) soft (+) bowel sounds no caput medusae Negative: Tenderness Extremity Exam: Negative: Tenderness, Swelling Psych Exam: Positive: Oriented x 3 LABORATORY DATA, IMAGING STUDIES, MICROBIOLOGY: PLS SEE BELOW ASSESSMENT AND PLAN: 63-year-old female, past medical history significant for insulin-dependent DMII, End stage liver disease 2/2 OHARA with ascites requiring frequent paracentesis, thrombocytopenia, hyperlipidemia DARIA, Vertigo, Recurrent pleural effusion s/p talc pleurodesis, Morbid obesity, Anxiety and depression, H/o recurrent syncopal episodes presents to the ER from her primary care physician's office with a chief complaint of increasingly distended abdomen. Of note, the patient has required abdominal paracentesis every week for the past 4 weeks with her last session being 11 days ago. The patient states that since her last paracentesis on 02/11 she has gained 20 pounds. She denies any dietary indiscretion, and notes that she has been taking her medications faithfully. She states that she followed up with her asbestos shingle inspector Dr. Cuba in [place] yesterday, and was told that they are considering a TIPS procedure. During this time, the p atient denies any fevers, chills, chest pain, palpitations, abdominal pain, or any nausea/vomiting/diarrhea. The patient will be admitted to the hospitalist service for paracentesis. Decompensated End stage liver disease -With recurrent ascites, thrombocytopenia, ascites, portal hypertension, vari lucila, splenomegaly -Hemodynamically unstable with hypotension and recurrent syncope -Albumin transfusion given patient's low albumin status and poor oncotic pressure -Pt needs to be compliant with low sodium <2gram diet, maximized on diuretics specifically aldactone or spironolactone with normal renal function, and - if hypotensive, maximum dose of midodrine up to 12.5 mg tid with albumin infusions to keep MAP>65, and monitor 24hr urine sodium . -Interventional Radiologist, Dr. Gordillo, can see her on Monday, and can do TIPS in [place]. -paracentesis 02/22/19 could not be done as pt became hypotensive with diaphoresis and pallor. pt was transfused albumin with increased dose of midodrine . Hematemesis 02/24/19 -npo -h/o varices -serial H&H, -type and screen and transfuse for active bleeding or hgb<8, symptoms -on iv protonix and octreotide gtt Acute GI bleed -npo -h/o varices -serial H&H, -type and screen and transfuse for active bleeding or hgb<8, symptoms -on iv protonix and octreotide gtt -if persistent bleed, at risk for encephalopathy, and will need rifaximin bid. Insulin-dependent diabetes mellitus -held Caloric controlled diet 02/24/19 due to hematemesis -held Finger stick checks prior to meals and at bedtime due to npo status -Coverage with insulin sliding scale protocol -Last A1c on 01/04 is 9.9 -hypoglycemic protocol while npo Loculated right pleural effusion -small as compared to previous imaging studies -no acute infectious etiology without fever or white count -if worsens, consider thoracentesis, thoracic surgical intervention or drain placement Hypotension -Likely due to osmotic diuresis -Hold antihypertensives -Transfused 25% albumin -s/p midodrine tid with albumin infusions to keep MAP>65, and monitor 24hr urine sodium . Ohara with End-stage liver disease -previously referred to [facility], but has not followed up since. -will need outpt fu w [facility] Pancytopenia -due to decompensated endstage liver disease -symptomatic care -supportive care -no acute indication for neupogen, rbc or platelet transfusion Coagulopathy due to liver disease -elevated INR -no signs of active bleeding -no acute indication for rbc transfusion Anxiety and depression -no suicidal ideation Morbid obesity bmi 45.7 complicating care probable daria monitor for hypercapnia DVT prophylaxis -Contraindicated in the setting of thrombocytopenia -Will use TEDs/SCDs disposition: due to hematemesis, transfer to pcu. VS, I&O, 24H, Fishbone Vital Signs/I&O Vital Signs Date Time Temp Pulse Resp B/P (MAP) Pulse Ox O2 Delivery O2 Flow Rate FiO2 02/24/19 02:00 97.0 87 18 129/63 (85) 95 02/22/19 11:00 Room Air I&O- Last 24 Hours up to 6 AM 02/24/19 06:00 Intake Total 760 ml Output Total 3050 ml Balance -2290 ml Laboratory Data 24H LABS Laboratory Tests 2 02/23/19 06:33: Nucleated Red Blood Cells % (auto) 0.0, Immature Platelet Fraction 4.7, Anion Gap 6L, Glomerular Filtration Rate 50.1, Blood Urea Nitrogen 16, Creatinine 1.16, Sodium Level 141, Potassium Level 3.7, Chloride Level 107, Carbon Dioxide Level 28, Calcium Level 8.4L, Aspartate Amino Transf (AST/SGOT) 19, Alanine Aminotransferase (ALT/SGPT) 21, Alkaline Phosphatase 183H, Total Bilirubin 0.7, Total Protein 6.3L, Albumin 2.9L, Magnesium Level 2.5H, Albumin/Globulin Ratio 0.85L CBC/BMP Laboratory Tests 02/23/19 06:33 Red Blood Count 2.76 L, Mean Corpuscular Volume 101.4 H, Mean Corpuscular Hemoglobin 30.8, Mean Corpuscular Hemoglobin Concent 30.4 L, Red Cell Distribution Width 19.3 H, Calcium Level 8.4 L, Aspartate Amino Transf (AST/SGOT) 19, Alanine Aminotransferase (ALT/SGPT) 21, Alkaline Phosphatase 183 H, Total Bilirubin 0.7, Total Protein 6.3 L, Albumin 2.9 L CAROL BOUCHER MD Feb 24, 2019 06:00
[2019-02-24] MEDS ORDERED: PANTOPRAZOLE 40MG INJ (PROTONIX) (C9113) IV ONE (09:00)
[2019-02-24] MEDS: PANTOPRAZOLE SODIUM 40 MG in D5W 50 ML IV SCH ×4 (10:13→22:59)
[2019-02-24] MEDS: OCTREOTIDE ACETATE 1,200 MCG in NS 238.8 ML IV SCH (10:54)
--- NOTE | 2019-02-24 12:11 | REP ---
Portable chest x-ray: Single view. 11:29 a.m. film. History: Shortness of breath. Comparison chest x-ray: February 24, 2019, 06:27 a.m. film . Findings: The previously noted loculated right pleural effusion is again seen, unchanged from recent chest x-ray. This is much smaller than it was March 2018. The left pleural angles are sharp. Heart is not enlarged. No infiltrate is seen. There is some pleural thickening along the right lateral chest wall. Pulmonary vasculature is not increased. Impression: Stable loculated right pleural fluid collection. No acute infiltrate. Electronically Signed by Lonny Fu MD 02/24/2019 12:03 P
[2019-02-24 13:15] LABS: HEMATOCRIT 26.8 % (36.0-47.0); HEMOGLOBIN 8.4 g/dl (12.0-15.5)
[2019-02-24] MEDS ORDERED: LIDOCAINE 2% INJ 100 MG/5 ML SDV (FOR ANES.) As Ordered ONE (13:39)
[2019-02-24] MEDS ORDERED: propofoL 200 MG/20 ML VIAL As Ordered ONE (13:39)
[2019-02-24] MEDS ORDERED: fentaNYL 100 MCG/2 ML INJECTION (J3010) As Ordered ONE (13:40)
[2019-02-24 13:41] LABS: CALCIUM LEVEL 9.1 MG/DL (8.8-10.2); CREATININE FOR GFR 1.34 MG/DL (0.55-1.30); GLOMERULAR FILTRATION RATE 42.4 (>45); POTASSIUM SERUM 4.2 MEQ/L (3.5-5.1)
[2019-02-24] MEDS ORDERED: MIDODRINE 5 MG TAB PO ONE (14:15)
--- NOTE | 2019-02-24 16:54 | ROOR ---
Patient Name: Olga Palma Procedure Date: 02/24/2019 4:39 PM Date of : 1955 Age: 63 Gender: Female Note Status: Finalized Procedure: Upper GI endoscopy Indications: Hematemesis Providers: Dwight GABRIEL MD Referring MD: 2. Inpatient 2. Inpatient Requesting Provider: Medicines: Monitored Anesthesia Care Complications: No immediate complications. Procedure: Pre-Anesthesia Assessment: - The heart rate, respiratory rate, oxygen saturations, blood pressure, adequacy of pulmonary ventilation, and response to care were monitored throughout the procedure. The Endoscope was introduced through the mouth, and advanced to the second part of duodenum. The upper GI endoscopy was accomplished without difficulty. The patient tolerated the procedure well. Findings: Grade II/III varices were found in the lower third of the esophagus,. They were medium in size. Stigmata of recent bleeding were evident and red gilma signs were present. Four bands were successfully placed with complete eradication, resulting in deflation of varices. Red blood was found in the entire examined stomach. Fluid aspiration was performed. Mild portal hypertensive gastropathy was found in the stomach. The exam of the stomach was otherwise normal. The examined duodenum was normal. Impression: - Recently bleeding grade II/III esophageal varices. Completely eradicated. Banded. - Small/moderate mucousy red blood in the entire stomach. Lavaged and evacuated, with good visualisation. - Portal hypertensive gastropathy. - I do not see any gastric varices. - Normal examined duodenum. Recommendation: - Administer an IV bolus of 50 micrograms of octreotide followed by an infusion of 50 micrograms per hour for 3 days. - Full liquid diet. - Advance diet as tolerated. - Viscous lidocaine 5 ml q 4 hrs po x 1-2 days for chest/swallowing pressure related to variceal banding. - May benefit from TIPSS for both intractable ascites and varices. - Return to liver clinic as previously scheduled. Repeat upper endoscopy in 1 month for retreatment. Dwight Gabriel MD Dwight GABRIEL MD 02/24/2019 4:54:07 PM Electronically signed by Dwight GABRIEL MD Number of Addenda: 0 Note Initiated On: 02/24/2019 4:39 PM Estimated Blood Loss: Estimated blood loss: none.
[2019-02-24] MEDS ORDERED: METOCLOPRAMIDE INJ 10MG/2ML VIAL (J2765) IV PRN (17:30)
[2019-02-24] MEDS ORDERED: OCTREOTIDE ACETATE 100 MCG/ML VIAL (J2354) IV ONE (18:30)
[2019-02-24 18:51] LABS: HEMATOCRIT 27.9 % (36.0-47.0); HEMOGLOBIN 8.5 g/dl (12.0-15.5)
[2019-02-24 19:14] LABS: CALCIUM LEVEL 8.9 MG/DL (8.8-10.2); CREATININE FOR GFR 1.35 MG/DL (0.55-1.30)
[2019-02-25 04:00] VITALS: BP 112/62
[2019-02-25] MEDS: PANTOPRAZOLE SODIUM 40 MG in D5W 50 ML IV SCH ×4 (05:31→20:03)
[2019-02-25 06:01] LABS: HEMOGLOBIN 8.7 g/dl (12.0-15.5); MEAN CORPUSCULAR HEMOGLOBIN 30.5 pg (27.0-33.0); MEAN CORPUSCULAR VOLUME 101.8 fl (80.0-96.0); RED BLOOD COUNT 2.85 10^6/uL (4.00-5.40)
[2019-02-25 06:24] LABS: ALBUMIN 3.1 GM/DL (3.2-5.2); CALCIUM LEVEL 8.8 MG/DL (8.8-10.2); CREATININE FOR GFR 1.32 MG/DL (0.55-1.30); GLOMERULAR FILTRATION RATE 43.1 (>45); POTASSIUM SERUM 3.9 MEQ/L (3.5-5.1); TOTAL PROTEIN 6.5 GM/DL (6.4-8.2); WHITE BLOOD COUNT 1.7 10^3/uL (4.0-10.0)
[2019-02-25 06:25] LABS: PLATELET COUNT, AUTOMATED 59 10^3/uL (150-450)
[2019-02-25 08:00] VITALS: BP 110/66
[2019-02-25] MEDS: OCTREOTIDE ACETATE 1,200 MCG in NS 238.8 ML IV SCH (11:28)
[2019-02-25] MEDS ORDERED: GLUCOSE 4 GM CHEW TABLET PO PRN (11:45)
[2019-02-25] MEDS ORDERED: GLUCAGON FOR INJ 1 MG VIAL (J1610) SC PRN (11:45)
[2019-02-25] MEDS ORDERED: DEXTROSE 50% 50 ML SYRINGE IV PRN (11:45)
[2019-02-25] MEDS: LIDOCAINE VISCOUS 2% SOLN 15ML UDC SS PRN ×3 (11:49→21:19)
[2019-02-25 12:00] VITALS: BP 110/58
[2019-02-25] MEDS: HumaLOG INSULIN (NovoLOG) PER UNIT SC SCH ×3 (12:04→20:04)
[2019-02-25] MEDS: MIDODRINE 5 MG TAB PO SCH ×2 (12:06→16:25)
[2019-02-25 12:19] LABS: HEMATOCRIT 31.9 % (36.0-47.0); HEMOGLOBIN 9.6 g/dl (12.0-15.5)
[2019-02-25 15:12] LABS: APPEARANCE, BODY FLUID CLOUDY (CLEAR); ASCITES FL COLOR AMBER (COLORLESS); SOURCE, BODY FLUID ASCITES; SPEC. GRAVITY BODY FLUIDS 1.013 (NOT ESTABLISHED)
[2019-02-25 15:37] LABS: SOURCE, BODY FLUID ALBUMIN ASCITES; SOURCE, BODY FLUID GLUCOSE ASCITES; SOURCE, BODY FLUID TOT PROTEIN ASCITES; TOTAL PROTEIN, BODY FLUID 1.2 G/DL (NOT ESTABLISHED)
[2019-02-25 16:00] VITALS: BP 100/54
--- NOTE | 2019-02-25 16:44 | REP ---
Ultrasound-guided paracentesis The procedure was performed by ARMANDO Shepherd, under the direct supervision of Dr. Cardoza. The risks and benefits of the procedure were explained to the patient and informed consent was obtained both verbally and written. Directly prior to the start of the procedure, a formal timeout was completed in the procedure room. Under ultrasound guidance, the largest pocket of fluid in the left flank was localized and skin was marked. The skin was then prepped and draped in a sterile fashion. 10 ml of 1% lidocaine was used as a local anesthetic. Using ultrasound guidance, an 8-Turkmen multi side-hole catheter was inserted using trocar technique. 5,200 mL of red colored fluid was withdrawn and discarded. The patient tolerated the procedure well and there were no immediate complications. After the appropriate monitored convalescence the patient was discharged from the department. Reviewed by ARMANDO Montez 02/25/2019 03:56 P Electronically Signed by Avelino Cardoza MD 02/25/2019 04:35 P
[2019-02-25] MEDS: MORPHINE 4 MG/ML 1ML VIAL/SYRINGE (J2270) IV PRN ×2 (17:26→23:52)
--- NOTE | 2019-02-25 17:49 | IPNPDOC ---
Date Seen The patient was seen on 02/25/19. Progress Note SUBJECTIVE: s/p EGD 02/24/[address] Gabriel: " Recently bleeding grade II/III esophageal varices. Completely eradicated. Banded.- Small/moderate mucousy red blood in the entire stomach. Lavaged and evacuated, with good visualisation. Portal hypertensive gastropathy.- I do not see any gastric varices. - Normal examined duodenum. Administer an IV bolus of 50 micrograms of octreotide followed by an infusion of 50 micrograms per hour for 3 days. - Full liquid diet. - Advance diet as tolerated. - Viscous lidocaine 5 ml q 4 hrs po x 1-2 days for chest/swallowing pressure related to variceal banding. - May benefit from TIPSS for both intractable ascites and varices. - Return to liver clinic as previously scheduled. Repeat upper endoscopy in 1 month for retreatment. " Pt had no recurrent hematemesis overnight, still with severe abdominal distension without nausea,vomiting. no fever, chills, confusion. OBJECTIVE: Physical Examination VITALS: PLS SEE BELOW General Exam: Positive: Alert, Cooperative, No Acute Distress anicteric no jaundice. speaks in full sentences, answering questions appropriately ENT Exam: Positive: Atraumatic, Mucous membr. moist/pink Chest Exam: Positive: Diminished fine crackles at hte beases Heart Exam: Positive: Rate Normal, Normal S1, Normal S2 Abdomen Exam: Positive: Other (Distended); fluid wave(+) soft (+) bowel sounds no caput medusae Negative: Tenderness Extremity Exam: Negative: Tenderness, Swelling Psych Exam: Positive: Oriented x 3 LABORATORY DATA, IMAGING STUDIES, MICROBIOLOGY: PLS SEE BELOW ASSESSMENT AND PLAN: 63-year-old female, past medical history significant for insulin-dependent DMII, End stage liver disease 2/2 OHARA with ascites requiring frequent paracentesis, thrombocytopenia, hyperlipidemia DARIA, Vertigo, Recurrent pleural effusion s/p talc pleurodesis, Morbid obesity, Anxiety and depression, H/o recurrent syncopal episodes presents to the ER from her primary care physician's office with a ch ief complaint of increasingly distended abdomen. Of note, the patient has required abdominal paracentesis every week for the past 4 weeks with her last session being 11 days ago. The patient states that since her last paracentesis on 02/11 she has gained 20 pounds. She denies any dietary indiscretion, and notes that she has been taking her medications faithfully. She states that she followed up with her palliative nurse Dr. Cuba in [place] yesterday, and was told that they are considering a TIPS procedure. During this time, the patient denies any fevers, chills, chest pain, palpitations, abdominal pain, or any nausea/vomiting/diarrhea. The patient will be admitted to the hospitalist service for paracentesis. Decompensated End stage liver disease -With recurrent ascites, thrombocytopenia, ascites, portal hypertension, varices, splenomegaly -Hemodynamically unstable with hypotension and recurrent syncope -Albumin transfusion given patient's low albumin status and poor oncotic press ure -Pt needs to be compliant with low sodium <2gram diet, maximized on diuretics specifically aldactone or spironolactone with normal renal function, and - if hypotensive, maximum dose of midodrine up to 12.5 mg tid with albumin infusions to keep MAP>65, and monitor 24hr urine sodium . -Interventional Radiologist, Dr. Gordillo, can see her on Monday, and can do TIPS in [place]. -paracentesis 02/22/19 could not be done as pt became hypotensive with diaphoresis and pallor. pt was transfused albumin with increased dose of midodrine . Esophageal variceal bleeding. Hematemesis 02/24/19 -s/p 02/24/19 npo -h/o varices -serial H&H, -on iv protonix and octreotide gtt -s/p EGD 02/24/[address] Gabriel: " Recently bleeding grade II/III esophageal varices. Completely eradicated. Banded.- Small/moderate mucousy red blood in the entire stomach. Lavaged and evacuated, with good visualisation. Portal hypertensive gastropathy.- I do not see any gastric varices. - Normal examined duodenum. Administer an IV bolus of 50 micrograms of octreotide followed by an infusion of 50 micrograms per hour for 3 days. - Full liquid diet. - Advance diet as tolerated. - Viscous lidocaine 5 ml q 4 hrs po x 1-2 days for chest/swallowing pressure related to variceal banding. - May benefit from TIPSS for both intractable ascites and varices. - Return to liver clinic as previously scheduled. Repeat upper endoscopy in 1 month for retreatment. " Pt had no recurrent hematemesis overnight, still with severe abdominal distension without nausea,vomiting. no fever, chills, confusion. Acute GI bleed -s/p EGD 02/24/[address] Gabriel: " Recently bleeding grade II/III esophageal varices. Completely eradicated. Banded.- Small/moderate mucousy red blood in the entire stomach. Lavaged and evacuated, with good visualisation. Portal hypertensive gastropathy.- I do not see any gastric varices. - Normal examined duodenum. Administer an IV bolus of 50 micrograms of octreotide followed by an infusion of 50 micrograms per hour for 3 days. - Full liquid diet. - Advance diet as t olerated. - Viscous lidocaine 5 ml q 4 hrs po x 1-2 days for chest/swallowing pressure related to variceal banding. - May benefit from TIPSS for both intractable ascites and varices. - Return to liver clinic as previously scheduled. Repeat upper endoscopy in 1 month for retreatment. " Pt had no recurrent hematemesis overnight, still with severe abdominal distension without nausea,vomiting. no fever, chills, confusion. Acute blood loss anemia -s/p EGD 02/24/[address] Gabriel: " Recently bleeding grade II/III esophageal varices. Completely eradicated. Banded.- Small/moderate mucousy red blood in the entire stomach. Lavaged and evacuated, with good visualisation. Portal hypertensive gastropathy.- I do not see any gastric varices. - Normal examined duodenum. Administer an IV bolus of 50 micrograms of octreotide followed by an infusion of 50 micrograms per hour for 3 days. - Full liquid diet. - Advance diet as tolerated. - Viscous lidocaine 5 ml q 4 hrs po x 1-2 days for chest/swallowing pressure related to variceal banding. - May benefit from TIPSS for both int ractable ascites and varices. - Return to liver clinic as previously scheduled. Repeat upper endoscopy in 1 month for retreatment. " Pt had no recurrent hematemesis overnight, still with severe abdominal distension without nausea,vomiting. no fever, chills, confusion. Insulin-dependent diabetes mellitus -held Caloric controlled diet 02/24/19 due to hematemesis -held Finger stick checks prior to meals and at bedtime due to npo status -Coverage with insulin sliding scale protocol -Last A1c on 01/04 is 9.9 -hypoglycemic protocol while npo Loculated right pleural effusion -small as compared to previous imaging studies -no acute infectious etiology without fever or white count -if worsens, consider thoracentesis, thoracic surgical intervention or drain placement Hypotension -Likely due to osmotic diuresis -Hold antihypertensives -Transfused 25% albumin -s/p midodrine tid with albumin infusions to keep MAP>65, and monitor 24hr urine sodium . Ohara with End-stage liver disease -previously referred to [facility], but has not followed up since. -will need outpt fu [facility] Pancytopenia -due to decompensated endstage liver disease -symptomatic care -supportive care -no acute indication for neupogen Coagulopathy due to liver disease -elevated INR Anxiety and depression -no suicidal ideation Morbid obesity bmi 45.7 complicating care probable daria monitor for hypercapnia DVT prophylaxis -Contraindicated in the setting of thrombocytopenia -Will use TEDs/SCDs disposition: due to hematemesis, transferred to pcu. VS, I&O, 24H, Fishbone Vital Signs/I&O Vital Signs Date Time Temp Pulse Resp B/P (MAP) Pulse Ox O2 Delivery O2 Flow Rate FiO2 02/25/19 04:00 96.6 67 16 112/62 (79) 94 02/24/19 17:35 2 02/22/19 11:00 Room Air I&O- Last 24 Hours up to 6 AM0 02/25/19 06:00 Intake Total 170 ml Output Total 2210 ml Balance -2040 ml Laboratory Data 24H LABS Laboratory Tests 2 02/24/19 06:43: Nucleated Red Blood Cells % (auto) 0.0, Immature Platelet Fraction 4.5 02/24/19 12:16: Bedside Glucose (Misc Panel) 247H 02/24/19 13:01: Anion Gap 8, Glomerular Filtration Rate 42.4L, Blood Urea Nitrogen 20H, Creatinine 1.34H, Sodium Level 140, Potassium Level 4.2, Chloride Level 104, Carbon Dioxide Level 28, Calcium Level 9.1 02/24/19 15:35: Bedside Glucose (Misc Panel) 199H 02/24/19 17:27: Bedside Glucose (Misc Panel) 172H 02/24/19 18:36: Anion Gap 5L, Glomerular Filtration Rate 42.0L, Blood Urea Nitrogen 20H, Creatinine 1.35H, Sodium Level 140, Potassium Level 4.0, Chloride Level 104, Carbon Dioxide Level 31, Calcium Level 8.9 02/25/19 00:22: Bedside Glucose (Misc Panel) 233H 02/25/19 05:25: Anion Gap 8, Glomerular Filtration Rate 43.1L, Blood Urea Nitrogen 19H, Creatinine 1.32H, Sodium Level 143, Potassium Level 3.9, Chloride Level 106, Carbon Dioxide Level 29, Calcium Level 8.8, Nucleated Red Blood Cells % (auto) 0.0, Aspartate Amino Transf (AST/SGOT) 22, Alanine Aminotransferase (ALT/SGPT) 20, Alkaline Phosphatase 161H, Total Bilirubin 1.0#, Total Protein 6.5, Albumin 3.1L, Magnesium Level 2.0, Albumin/Globulin Ratio 0.91L 02/25/19 05:29: Bedside Glucose (Misc Panel) 179H CBC/BMP Laboratory Tests 02/24/19 06:43 Red Blood Count 2.95 L, Mean Corpuscular Volume 97.6 H, Mean Corpuscular Hemoglobin 29.8, Mean Corpuscular Hemoglobin Concent 30.6 L, Red Cell Distribution Width 18.9 H 02/24/19 13:00 02/24/19 13:01 Calcium Level 9.1 02/24/19 18:36 Calcium Level 8.9 02/25/19 00:20 02/25/19 05:25 Red Blood Count 2.85 L, Mean Corpuscular Volume 101.8 H, Mean Corpuscular Hemoglobin 30.5, Mean Corpuscular Hemoglobin Concent 30.0 L, Red Cell Distribution Width 18.6 H, Calcium Level 8.8, Aspartate Amino Transf (AST/SGOT) 22, Alanine Aminotransferase (ALT/SGPT) 20, Alkaline Phosphatase 161 H, Total Bilirubin 1.0 #, Total Protein 6.5, Albumin 3.1 L CAROL BOUCHER MD Feb 25, 2019 06:41
[2019-02-25 20:00] VITALS: BP 110/53
[2019-02-25 20:37] LABS: HEMATOCRIT 27.4 % (36.0-47.0); HEMOGLOBIN 8.8 g/dl (12.0-15.5)
[2019-02-25 23:41] LABS: HEMATOCRIT 28.4 % (36.0-47.0); HEMOGLOBIN 8.9 g/dl (12.0-15.5)
[2019-02-25 23:59] VITALS: BP 139/87
[2019-02-26] MEDS: PANTOPRAZOLE SODIUM 40 MG in D5W 50 ML IV SCH ×5 (01:42→20:37)
[2019-02-26 04:00] VITALS: BP 104/53
[2019-02-26 06:14] LABS: HEMATOCRIT 28.1 % (36.0-47.0); HEMOGLOBIN 8.7 g/dl (12.0-15.5); MEAN CORPUSCULAR HEMOGLOBIN 30.7 pg (27.0-33.0); MEAN CORPUSCULAR VOLUME 99.3 fl (80.0-96.0); RED BLOOD COUNT 2.83 10^6/uL (4.00-5.40); WHITE BLOOD COUNT 2.7 10^3/uL (4.0-10.0)
[2019-02-26 06:16] LABS: PLATELET COUNT, AUTOMATED 62 10^3/uL (150-450)
[2019-02-26 06:42] LABS: ALBUMIN 3.1 GM/DL (3.2-5.2); BILIRUBIN,TOTAL 1.2 MG/DL (0.2-1.0); CALCIUM LEVEL 8.5 MG/DL (8.8-10.2); CREATININE FOR GFR 1.23 MG/DL (0.55-1.30); GLOMERULAR FILTRATION RATE 46.8 (>45); POTASSIUM SERUM 4.3 MEQ/L (3.5-5.1); TOTAL PROTEIN 6.3 GM/DL (6.4-8.2)
[2019-02-26] MEDS: MIDODRINE 5 MG TAB PO SCH ×3 (08:18→17:33)
[2019-02-26] MEDS: MORPHINE 4 MG/ML 1ML VIAL/SYRINGE (J2270) IV PRN ×2 (08:19→14:16)
[2019-02-26] MEDS: HumaLOG INSULIN (NovoLOG) PER UNIT SC SCH ×4 (08:19→20:36)
[2019-02-26 08:42] VITALS: BP 136/61
--- NOTE | 2019-02-26 10:47 | IPNPDOC ---
Text Note Date of Service The patient was seen on 02/26/19. NOTE S: daughter present in room (permission obtained to speak with daughter). Forrest thayerrasheed states no stool for 4-5 days. States no abdomen pain but has right sided chest pain since 02/24/19 when banding occured. states pain is dull and constant, no SOB, no N, no V. She was started on octreotide 02/24 and will complete in AM on 02/27/19. Patient states does not want morphine for pain but wants tramadol (pt preference). Last night IV left mid forearm infiltrated and is painful O: Vitals as below General: pleasant, NAD AAOx3 HRRR LCTA no W/R/R Abdomen: soft, distended, NABS Ext: no edema Musculoskeletal: no reproducible chest wall pain; left forearm with 4cm tender indurated erythematous area from prior IV infiltration A/P: Decompensated End stage liver disease /OHARA -With recurrent ascites, thrombocytopenia, ascites, portal hypertension, varices, splenomegaly -Hemodynamically unstable with hypotension and recurrent syncope -Albumin transfusion given patient's low albumin status and poor oncotic pressure -Pt needs to be compliant with low sodium <2gram diet, maximized on diuretics spironolactone with normal renal function, and -Interventional Radiologist, Dr. Gordillo, can see her on Monday, and can do TIPS in [place]. -paracentesis 02/22/19 could not be done as pt became hypotensive with diaphoresis and pallor. -pt was transfused albumin with increased dose of midodrine . There has been no reoccurance of hypotension but if hypotensive, maximum dose of midodrine up to 12.5 mg tid with albumin infusions to keep MAP>65, and monitor 24hr urine sod ium . Esophageal variceal bleeding with Portal hypertensive gastropathy Hematemesis 02/24/19 -s/p EGD 02/24/[address] Gabriel: " Recently bleeding grade II/III esophageal varices. Completely eradicated. Banded.- Small/moderate mucousy red blood in the entire stomach". -on iv protonix and octreotide gtt -continue with octreotide infusion of 50 micrograms per hour for 3 days (to be completed 02/27/19) - Full liquid diet. - - Viscous lidocaine 5 ml q 4 hrs po x 1-2 days for chest/swallowing pressure related to variceal banding. - May benefit from TIPSS for both intractable ascites and varices. - Return to liver clinic as previously scheduled. Repeat upper endoscopy in 1 month for retreatment. " Acute GI bleed -s/p EGD 02/24/19 -plan as above Acute blood loss anemia -s/p EGD 02/24/[address] Gabriel: " Recently bleeding grade II/III esophageal varices. Completely eradicated. Banded.- Small/moderate mucousy red blood in the entire stomach. Lavaged and evacuated, with good visualisation. Portal hypertensive gastropathy.- I do not see any gastric varices. - Normal examined duodenum. Administer an IV bolus of 50 micrograms of octreotide followed by an infusion of 50 micrograms per hour for 3 days. - Full liquid diet. - Advance diet as tolerated. - Viscous lidocaine 5 ml q 4 hrs po x 1-2 days for chest/swallowing pressure related to variceal banding. - May benefit from TIPSS for both intractable ascites and varices. - Return to liver clinic as previously scheduled. Repeat upper endoscopy in 1 month for retreatment. " Pt had no recur rent hematemesis overnight, still with severe abdominal distension without nausea,vomiting. no fever, chills, confusion. Insulin-dependent diabetes mellitus -Coverage with insulin sliding scale protocol -Last A1c on 01/04 is 9.9 -hypoglycemic protocol while npo Loculated right pleural effusion -small as compared to previous imaging studies -no acute infectious etiology without fever or white count -if worsens, consider thoracentesis, thoracic surgical intervention or drain placement Hypotension - RESOLVED -Likely due to osmotic diuresis -Hold antihypertensives -Transfused 25% albumin -s/p midodrine tid with albumin infusions to keep MAP>65, and monitor 24hr urine sodium . Ohara with End-stage liver disease -previously referred to [facility], but has not followed up since. -will need outpt w [facility] Pancytopenia -due to decompensated endstage liver disease -symptomatic care -supportive care -no acute indication for neupogen Coagulopathy due to liver disease -elevated INR Anxiety and depression -no suicidal ideation Morbid obesity bmi 45.7 complicating care probable samra monitor for hypercapnia DVT prophylaxis -Contraindicated in the setting of thrombocytopenia -Will use TEDs/SCDs Possible d/c 02/28 if H/H remains stable off octreotide VS,Fishbone, I+O VS, Fishbone, I+O Laboratory Tests 02/25/19 12:03 02/25/19 17:55 02/25/19 23:29 02/26/19 05:44 Red Blood Count 2.83 L, Mean Corpuscular Volume 99.3 H, Mean Corpuscular Hemoglobin 30.7, Mean Corpuscular Hemoglobin Concent 31.0 L, Red Cell Distribution Width 18.6 H, Calcium Level 8.5 L, Aspartate Amino Transf (AST/SGOT) 23, Alanine Aminotransferase (ALT/SGPT) 22, Alkaline Phosphatase 140 H, Total Bilirubin 1.2 H, Total Protein 6.3 L, Albumin 3.1 L Vital Signs Date Time Temp Pulse Resp B/P (MAP) Pulse Ox O2 Delivery O2 Flow Rate FiO2 02/26/19 08:19 20 02/26/19 04:00 98.5 80 104/53 (70) 91 02/25/19 14:45 2 02/22/19 11:00 Room Air I&O- Last 24 Hours up to 6 AM0 02/26/19 06:00 Intake Total 2370 ml Output Total 1950 ml Balance 420 ml NADIA HUGO DO Feb 26, 2019 08:29
[2019-02-26] MEDS ORDERED: SENNA 8.6 MG TAB (SENOKOT) PO PRN (11:00)
[2019-02-26] MEDS: OCTREOTIDE ACETATE 1,200 MCG in NS 238.8 ML IV SCH (11:12)
[2019-02-26] MEDS ORDERED: MAGNESIUM CITRATE 300 ML BTL PO ONE (12:00)
[2019-02-26 12:13] LABS: HEMATOCRIT 29.7 % (36.0-47.0); HEMOGLOBIN 9.1 g/dl (12.0-15.5)
[2019-02-26] MEDS: traMADol 50 MG TAB PO PRN ×2 (12:28→20:13)
[2019-02-26 12:49] VITALS: BP 130/61
[2019-02-26 16:00] VITALS: BP 109/51
[2019-02-26 18:15] LABS: HEMATOCRIT 31.3 % (36.0-47.0); HEMOGLOBIN 9.6 g/dl (12.0-15.5)
[2019-02-26 20:00] VITALS: BP 115/56
[2019-02-26] MEDS: rOPINIRole 2MG TAB PO PRN ×2 (20:12)
[2019-02-26] MEDS: LEVEMIR (INSULIN DETEMIR) 1 UNITS/0.01ML SC SCH (20:37)
[2019-02-27] VITALS (8 sets, daily range): BP systolic 100–131; BP diastolic 54–62
[2019-02-27] MEDS: PANTOPRAZOLE SODIUM 40 MG in D5W 50 ML IV SCH ×5 (02:27→21:15)
[2019-02-27] MEDS: traMADol 50 MG TAB PO PRN ×2 (05:20→21:15)
[2019-02-27] MEDS: MORPHINE 4 MG/ML 1ML VIAL/SYRINGE (J2270) IV PRN (07:52)
[2019-02-27] MEDS: MIDODRINE 5 MG TAB PO SCH ×3 (07:52→16:00)
[2019-02-27] MEDS: HumaLOG INSULIN (NovoLOG) PER UNIT SC SCH ×4 (07:53→21:14)
[2019-02-27 10:43] LABS: HEMATOCRIT 28.8 % (36.0-47.0); HEMOGLOBIN 8.7 g/dl (12.0-15.5); MEAN CORPUSCULAR HEMOGLOBIN 29.8 pg (27.0-33.0); MEAN CORPUSCULAR HGB CONC 30.2 g/dl (32.0-36.5); MEAN CORPUSCULAR VOLUME 98.6 fl (80.0-96.0); RED BLOOD COUNT 2.92 10^6/uL (4.00-5.40); WHITE BLOOD COUNT 2.1 10^3/uL (4.0-10.0)
[2019-02-27 10:51] LABS: PLATELET COUNT, AUTOMATED 59 10^3/uL (150-450)
[2019-02-27 11:09] LABS: CREATININE FOR GFR 1.11 MG/DL (0.55-1.30)
[2019-02-27 11:10] LABS: ALBUMIN 2.9 GM/DL (3.2-5.2); BILIRUBIN,TOTAL 0.8 MG/DL (0.2-1.0); CALCIUM LEVEL 8.4 MG/DL (8.8-10.2); GLOMERULAR FILTRATION RATE 52.7 (>45); MAGNESIUM LEVEL 2.2 MG/DL (1.8-2.4); POTASSIUM SERUM 4.2 MEQ/L (3.5-5.1); TOTAL PROTEIN 6.1 GM/DL (6.4-8.2)
[2019-02-27] MEDS: LACTULOSE 20 GM/30 ML SYRUP UD PO SCH ×3 (13:33→21:13)
--- NOTE | 2019-02-27 20:23 | IPNPDOC ---
Text Note Date of Service The patient was seen on 02/27/19. NOTE S: patient states feels tired. States increased abdomen distention. States no bowel movement with mg citrate and doesn't know if she received senna or enema for constipation. She is being seen for endstage liver disease and bleeding esophageal varices that were banded. Octeotide was stopped this AM and pateint state no further right sided chest pain. no N, no V O: Vitals as below General: pleasant, NAD AAOx3 HRRR LCTA Abdomen:distended, NT NABS; small serous fluid leaking from prior paracentesis Ext: no ankle edema A/P: Decompensated End stage liver disease /HICKS -With recurrent ascites, thrombocytopenia, ascites, portal hypertension, varices, splenomegaly -hemodyamically stable and no need for further albumin transfusions (had received earlier in hospitalization for hypotension,hypoalbumiemia) There has been no reoccurance of hypotension but if hypotensive, maximum dose of midodrine up to 12.5 mg tid with albumin infusions to keep MAP>65 -Pt needs to be compliant with low sodium <2gram diet, maximized on diuretics spironolactone with normal renal function, and -Interventional Radiologist, Dr. Gordillo, can see her on Monday, and can do TIPS in [place]. -paracentesis performed 02/25/19 Esophageal variceal bleeding with Portal hypertensive gastropathy Hematemesis 02/24/19 -s/p EGD 02/24/[address] Gabriel: " Recently bleeding grade II/III esophageal varices. Completely eradicated. Banded.- Small/moderate mucousy red blood in the entire stomach". -on iv protonix and completed 3 days of octreotide infusion -tolerating Full liquid diet. - May benefit from TIPSS for both intractable ascites and varices. - Return to liver clinic as previously scheduled. Repeat upper endoscopy in 1 month for retreatment. Acute GI bleed -s/p EGD 02/24/19 with banding of varices Acute blood loss anemia due to GI Bleed. - stable/monitor Insulin-dependent diabetes mellitus -Coverage with insulin sliding scale protocol -Last A1c on 01/04 is 9.9 -hypoglycemic protocol while npo Loculated right pleural effusion -small as compared to previous imaging studies -no acute infectious etiology without fever or white count -if worsens, consider thoracentesis, thoracic surgical intervention or drain placement Hypotension - RESOLVED -Likely due to osmotic diuresis -Transfused 25% albumin -s/p midodrine tid with albumin infusions to keep MAP>65, and monitor 24hr urine sodium . Pancytopenia -due to decompensated endstage liver disease -symptomatic care -supportive care -no acute indication for neupogen Coagulopathy due to liver disease -elevated INR Anxiety and depression -no suicidal ideation Morbid obesity bmi 45.7 complicating care probable samra monitor for hypercapnia DVT prophylaxis -Contraindicated in the setting of thrombocytopenia -Will use TEDs/SCDs Possible d/c 02/28 if H/H remains stable off octreotide VS,Fishbone, I+O VS, Fishbone, I+O Laboratory Tests 02/26/19 12:00 02/26/19 18:00 Vital Signs Date Time Temp Pulse Resp B/P (MAP) Pulse Ox O2 Delivery O2 Flow Rate FiO2 02/27/19 07:52 18 02/27/19 04:00 96.9 74 123/60 (81) 94 02/25/19 14:45 2 02/22/19 11:00 Room Air I&O- Last 24 Hours up to 6 AM 02/27/19 06:00 Intake Total 1440 ml Output Total 1550 ml Balance -110 ml NADIA HUGO DO Feb 27, 2019 07:56
[2019-02-27] MEDS: LEVEMIR (INSULIN DETEMIR) 1 UNITS/0.01ML SC SCH (21:15)
[2019-02-27] MEDS: rOPINIRole 2MG TAB PO PRN (21:15)
[2019-02-28] VITALS (8 sets, daily range): BP systolic 108–155; BP diastolic 57–68
[2019-02-28] MEDS: PANTOPRAZOLE SODIUM 40 MG in D5W 50 ML IV SCH ×3 (03:00→13:11)
[2019-02-28 05:41] LABS: HEMATOCRIT 29.2 % (36.0-47.0); HEMOGLOBIN 8.9 g/dl (12.0-15.5); MEAN CORPUSCULAR HEMOGLOBIN 30.7 pg (27.0-33.0); MEAN CORPUSCULAR HGB CONC 30.5 g/dl (32.0-36.5); MEAN CORPUSCULAR VOLUME 100.7 fl (80.0-96.0); WHITE BLOOD COUNT 2.5 10^3/uL (4.0-10.0)
[2019-02-28 05:42] LABS: PLATELET COUNT, AUTOMATED 63 10^3/uL (150-450)
[2019-02-28 05:50] LABS: INR 1.41
[2019-02-28 06:01] LABS: BILIRUBIN,TOTAL 0.9 MG/DL (0.2-1.0); CALCIUM LEVEL 8.3 MG/DL (8.8-10.2); CREATININE FOR GFR 1.16 MG/DL (0.55-1.30); GLOMERULAR FILTRATION RATE 50.1 (>45); MAGNESIUM LEVEL 2.3 MG/DL (1.8-2.4); POTASSIUM SERUM 3.9 MEQ/L (3.5-5.1)
[2019-02-28] MEDS: MIDODRINE 5 MG TAB PO SCH ×3 (08:00→16:00)
[2019-02-28] MEDS: traMADol 50 MG TAB PO PRN (08:44)
[2019-02-28] MEDS: HumaLOG INSULIN (NovoLOG) PER UNIT SC SCH ×4 (10:37→20:16)
[2019-02-28] MEDS: LACTULOSE 20 GM/30 ML SYRUP UD PO SCH ×2 (11:24→18:36)
--- NOTE | 2019-02-28 18:16 | IPNPDOC ---
Text Note Date of Service The patient was seen on 02/28/19. NOTE S: patient confused today and her ammonia level is up. she states not sure if she is on lactulose or rifaximin at home. complains of pain to forearms at former IV insertion sites. states had bowel movement this afternoon. states abdomen pain is less. good appetite. has been off octreotide and no further bleeding. O: Vitals as below General: pleasantly confused at times, alert, oriented to person HRRR LCTA Abdomen obese, distended NT NABS A/P: 1) Hepatic metabolic encephalopathy - lactulose, repeat NH4 level in AM 2) Decompensated End stage liver disease /HICKS -With recurrent ascites, thrombocytopenia, ascites, portal hypertension, varices, splenomegaly -Interventional Radiologist, Dr. Gordillo, can see her on Monday, and can do TIPS in [place]. -paracentesis performed 02/25/19 3) Esophageal variceal bleeding with Portal hypertensive gastropathy Hematemesis 02/24/19 and EGD on 02/24/19 with banded varices -no signs of rebleeding . off octreotide since 02/27/19 May benefit from TIPSS for both intractable ascites and varices. - Return to liver clinic as previously scheduled. Repeat upper endoscopy in 1 month for retreatment. All other problems stable as per 02/27/19 note Possible d/c 03/01 if H/H remains stable off octreotide and when encephalopathy clears. VS,Fishbone, I+O VS, Fishbone, I+O Laboratory Tests 02/28/19 05:15 Red Blood Count 2.90 L, Mean Corpuscular Volume 100.7 H, Mean Corpuscular Hemoglobin 30.7, Mean Corpuscular Hemoglobin Concent 30.5 L, Red Cell Distribution Width 17.9 H, Calcium Level 8.3 L, Aspartate Amino Transf (AST/SGOT) 10, Alanine Aminotransferase (ALT/SGPT) 18, Alkaline Phosphatase 132 H, Total Bilirubin 0.9, Total Protein 6.0 L, Albumin 3.0 L Vital Signs Date Time Temp Pulse Resp B/P (MAP) Pulse Ox O2 Delivery O2 Flow Rate FiO2 02/28/19 16:00 97.2 88 18 136/65 (88) 93 02/28/19 09:14 2.0 02/22/19 11:00 Room Air I&O- Last 24 Hours up to 6 AM 02/28/19 06:00 Intake Total 742 ml Output Total 1360 ml Balance -618 ml NADIA HUGO DO Feb 28, 2019 18:16
[2019-02-28] MEDS: PANTOPRAZOLE 40MG TAB (PROTONIX) PO SCH (20:15)
[2019-02-28] MEDS: LEVEMIR (INSULIN DETEMIR) 1 UNITS/0.01ML SC SCH (20:17)
[2019-03-01] VITALS: BP 126/65
[2019-03-01] MEDS: LACTULOSE 20 GM/30 ML SYRUP UD PO SCH ×5 (00:04→20:59)
[2019-03-01] MEDS: rOPINIRole 2MG TAB PO PRN ×2 (01:05→21:00)
[2019-03-01] MEDS: traMADol 50 MG TAB PO PRN ×2 (01:05→21:01)
[2019-03-01 02:00] VITALS: BP 136/70
[2019-03-01 05:54] LABS: HEMATOCRIT 28.9 % (36.0-47.0); HEMOGLOBIN 9.1 g/dl (12.0-15.5); MEAN CORPUSCULAR HEMOGLOBIN 30.4 pg (27.0-33.0); MEAN CORPUSCULAR HGB CONC 31.5 g/dl (32.0-36.5); MEAN CORPUSCULAR VOLUME 96.7 fl (80.0-96.0); RED BLOOD COUNT 2.99 10^6/uL (4.00-5.40); WHITE BLOOD COUNT 2.4 10^3/uL (4.0-10.0)
[2019-03-01 05:58] LABS: PLATELET COUNT, AUTOMATED 60 10^3/uL (150-450)
[2019-03-01 06:00] VITALS: BP 122/58
[2019-03-01 06:19] LABS: ALBUMIN 2.9 GM/DL (3.2-5.2); BILIRUBIN,TOTAL 0.7 MG/DL (0.2-1.0); CALCIUM LEVEL 8.1 MG/DL (8.8-10.2); CREATININE FOR GFR 1.22 MG/DL (0.55-1.30); GLOMERULAR FILTRATION RATE 47.2 (>45); POTASSIUM SERUM 3.8 MEQ/L (3.5-5.1)
[2019-03-01] MEDS: MIDODRINE 5 MG TAB PO SCH ×3 (08:48→18:00)
[2019-03-01] MEDS: PANTOPRAZOLE 40MG TAB (PROTONIX) PO SCH ×2 (08:48→21:00)
[2019-03-01] MEDS: HumaLOG INSULIN (NovoLOG) PER UNIT SC SCH ×4 (09:31→21:02)
[2019-03-01 14:00] VITALS: BP 147/80
--- NOTE | 2019-03-01 20:48 | IPNPDOC ---
Text Note Date of Service The patient was seen on 03/01/19. NOTE S: patient still confused and occasionally making off the wall comments not a ppropriate to conversation. minimal stool output with lactulose and small decrease in ammonia. O: Vitals as below General:alert, oriented to person , answering questions but not always appropriately. HRRR LCTA Abdomen obese, distended NT NABS, left lower abdomen from prior paracentesis with no drainage or discharge A/P: 1) Hepatic metabolic encephalopathy - lactulose, repeat NH4 level in AM; not ready for discharge. will add rifaximen. 2) Decompensated End stage liver disease /HICKS -With recurrent ascites, thrombocytopenia, ascites, portal hypertension, varices, splenomegaly -Interventional Radiologist, Dr. Gordillo, can see her on Monday, and can do TIPS in [place]. -paracentesis performed 02/25/19 3) Esophageal variceal bleeding with Portal hypertensive gastropathy Hematemesis 02/24/19 and EGD on 02/24/19 with banded varices -no signs of rebleeding . off octreotide since 02/27/19 May benefit from TIPSS for both intractable ascites and varices. - Return to liver clinic as previously scheduled. Repeat upper endoscopy in 1 month for retreatment. All other medical problems stable as per 02/27/19 note Disposition - once mentation returns to baseline - d/c home VS,Fishbone, I+O VS, Fishbone, I+O Laboratory Tests 03/01/19 05:44 Red Blood Count 2.99 L, Mean Corpuscular Volume 96.7 H, Mean Corpuscular Hemoglobin 30.4, Mean Corpuscular Hemoglobin Concent 31.5 L, Red Cell Distribution Width 17.4 H, Calcium Level 8.1 L, Aspartate Amino Transf (AST/SGOT) 11, Alanine Aminotransferase (ALT/SGPT) 16, Alkaline Phosphatase 137 H, Total Bilirubin 0.7, Total Protein 6.0 L, Albumin 2.9 L Vital Signs Date Time Temp Pulse Resp B/P (MAP) Pulse Ox O2 Delivery O2 Flow Rate FiO2 03/01/19 06:00 96.9 90 20 122/58 (79) 93 02/28/19 09:14 2.0 I&O- Last 24 Hours up to 6 AM 03/01/19 06:00 Intake Total 800 ml Output Total 1160 ml Balance -360 ml NADIA HUGO DO Mar 01, 2019 13:41
[2019-03-01] MEDS: rifAXIMin 550 MG TAB (XIFAXAN) PO SCH (21:00)
[2019-03-01] MEDS: LEVEMIR (INSULIN DETEMIR) 1 UNITS/0.01ML SC SCH (21:01)
[2019-03-01 22:00] VITALS: BP 146/70
[2019-03-02] MEDS: HumaLOG INSULIN (NovoLOG) PER UNIT SC SCH ×4 (08:52→21:45)
[2019-03-02] MEDS: LACTULOSE 20 GM/30 ML SYRUP UD PO SCH ×4 (08:52→21:44)
[2019-03-02] MEDS: rifAXIMin 550 MG TAB (XIFAXAN) PO SCH ×2 (08:52→21:44)
[2019-03-02] MEDS: MIDODRINE 5 MG TAB PO SCH ×3 (08:52→16:36)
[2019-03-02] MEDS: LEVEMIR (INSULIN DETEMIR) 1 UNITS/0.01ML SC SCH ×2 (08:52→21:45)
[2019-03-02] MEDS: PANTOPRAZOLE 40MG TAB (PROTONIX) PO SCH ×2 (08:52→21:44)
[2019-03-02] MEDS: traMADol 50 MG TAB PO PRN ×3 (08:53→22:03)
--- NOTE | 2019-03-02 11:37 | IPNPDOC ---
Text Note Date of Service The patient was seen on 03/02/19. NOTE S: patient sitting in chair. states dry cough. Still confused but improved from yesterday. States "I need something" then forgets her thought; when asked ROS, states "I'm not" instead of yes/no answers. O: vitals as below General: alert to person /place but not events; HRRR LCTA no W/R/R HEENT: no post nasal drip; normal pharynx Ext: trace ankle edema; Abdomen soft NT distended A/P: 1) Hepatic metabolic encephalopathy - improving; lactulose,refaximen, repeat NH4 level in AM; not ready for discharge. mental status not yet at baseline. possible d/c tomorrow 2) Decompensated End stage liver disease /HICKS -With recurrent ascites, thrombocytopenia, ascites, portal hypertension, varices, splenomegaly -Interventional Radiologist, Dr. Gordillo, can see her on Monday, and can do TIPS in [place]. -paracentesis performed 02/25/19 3) Esophageal variceal bleeding with Portal hypertensive gastropathy Hematemesis 02/24/19 and EGD on 02/24/19 with banded varices -no signs of rebleeding . off octreotide since 02/27/19 May benefit from TIPSS for both intractable ascites and varices. - Return to liver clinic as previously scheduled. Repeat upper endoscopy in 1 month for retreatment. All other medical problems stable as per 02/27/19 note Disposition - once mentation returns to baseline - d/c home VS,Fishbone, I+O VS, Fishbone, I+O Vital Signs Date Time Temp Pulse Resp B/P (MAP) Pulse Ox O2 Delivery O2 Flow Rate FiO2 03/02/19 09:23 18 03/02/19 06:00 97.9 83 95 03/01/19 22:00 146/70 (95) 02/28/19 09:14 2.0 I&O- Last 24 Hours up to 6 AM 03/02/19 06:00 Intake Total 750 ml Output Total 4 ml Balance 746 ml NADIA HUGO DO Mar 02, 2019 11:36
[2019-03-02] MEDS: guaiFENesin SYRUP 200 MG/10 ML UDC PO PRN ×2 (12:09→21:44)
[2019-03-02 12:12] VITALS: BP 120/56
[2019-03-02 14:10] VITALS: BP 133/64
[2019-03-02 14:11] VITALS: BP 133/64
[2019-03-02 22:00] VITALS: BP 141/80
[2019-03-02] MEDS: rOPINIRole 2MG TAB PO PRN (22:03)
[2019-03-03 04:00] VITALS: BP 136/78
[2019-03-03 06:00] VITALS: BP 124/69
[2019-03-03 06:46] LABS: HEMATOCRIT 29.6 % (36.0-47.0); HEMOGLOBIN 9.2 g/dl (12.0-15.5); MEAN CORPUSCULAR HEMOGLOBIN 30.6 pg (27.0-33.0); MEAN CORPUSCULAR HGB CONC 31.1 g/dl (32.0-36.5); MEAN CORPUSCULAR VOLUME 98.3 fl (80.0-96.0); RED BLOOD COUNT 3.01 10^6/uL (4.00-5.40); WHITE BLOOD COUNT 2.2 10^3/uL (4.0-10.0)
[2019-03-03 06:55] LABS: PLATELET COUNT, AUTOMATED 62 10^3/uL (150-450)
[2019-03-03 07:13] LABS: ALBUMIN 2.9 GM/DL (3.2-5.2); BILIRUBIN,TOTAL 0.6 MG/DL (0.2-1.0); CALCIUM LEVEL 8.4 MG/DL (8.8-10.2); CREATININE FOR GFR 1.2 MG/DL (0.55-1.30); GLOMERULAR FILTRATION RATE 48.1 (>45); POTASSIUM SERUM 3.4 MEQ/L (3.5-5.1); TOTAL PROTEIN 6.5 GM/DL (6.4-8.2)
[2019-03-03] MEDS: MIDODRINE 5 MG TAB PO SCH ×2 (08:00→12:00)
[2019-03-03] MEDS: guaiFENesin SYRUP 200 MG/10 ML UDC PO PRN (08:41)
[2019-03-03] MEDS: LACTULOSE 20 GM/30 ML SYRUP UD PO SCH ×2 (08:41→08:46)
[2019-03-03] MEDS: rifAXIMin 550 MG TAB (XIFAXAN) PO SCH (08:41)
[2019-03-03] MEDS: PANTOPRAZOLE 40MG TAB (PROTONIX) PO SCH (08:41)
[2019-03-03] MEDS: LEVEMIR (INSULIN DETEMIR) 1 UNITS/0.01ML SC SCH (08:42)
[2019-03-03 08:43] VITALS: BP 130/66
[2019-03-03] MEDS: HumaLOG INSULIN (NovoLOG) PER UNIT SC SCH ×2 (08:43→13:19)
[2019-03-03] MEDS: traMADol 50 MG TAB PO PRN (08:43)
[2019-03-03 10:00] VITALS: BP 120/64
[2019-03-03] MEDS ORDERED: GUAI100S51 PO (10:30)
[2019-03-03] MEDS ORDERED: PANT40TA3 PO (10:30)
[2019-03-03] MEDS ORDERED: Lactulose Syrup PO (10:30)
[2019-03-03] MEDS ORDERED: XIFA550T PO (10:30)
[2019-03-03 13:18] VITALS: BP 149/79
--- NOTE | 2019-03-04 17:56 | DS.PDOC ---
Discharge Summary General Date of Admission Feb 22, 2019 at 10:12 Date of Discharge 03/03/19 Primary Care Physician: ABI MATHEW MD Attending Physician: NADIA HUGO DO Specialist/Consultants Involve: SNEHAL SAMPSON MD Discharge Summary PROCEDURES PERFORMED DURING STAY: -EGD 02/24/19 with banding of varices -paracentesis performed 02/25/19 ADMITTING DIAGNOSES: Decompensated Liver Cirrhosis with Ascites Diabetes mellitus Hypertension Iron deficiency anemia GERD DISCHARGE DIAGNOSES: Decompensated End stage liver disease /HICKS Esophageal variceal bleeding with Portal hypertensive gastropathy Acute upper GI bleed with hematemesis Acute blood loss anemia due to GI Bleed. - Insulin-dependent diabetes mellitus Loculated right pleural effusion Hypotension - RESOLVED Pancytopenia -due to decompensated endstage liver disease Coagulopathy due to liver disease Anxiety and depression Morbid obesity bmi 45.7 probable daria Hepatic encephalopathy COMPLICATIONS/CHIEF COMPLAINT: Ascites. HISTORY OF PRESENT ILLNESS: 63-year-old female, past medical history significant for insulin-dependent DMII, End stage liver disease 2/2 HICKS with ascites requiring frequent paracentesis, thrombocytopenia, hyperlipidemia DARIA, Vertigo, Recurrent pleural effusion s/p talc pleurodesis, Morbid obesity, Anxiety and depression, H/o recurrent syncopal episodes presents to the ER from her primary care physician's office with a chief complaint of increasingly distended abdomen. Of note, the patient has required abdominal paracentesis every week for the past 4 weeks with her last session being 11 days ago. The patient states that since her last paracentesis on 02/11 she has gained 20 pounds. She denies any dietary indiscretion, and notes that she has been taking her medications faithfully. She states that she followed up with her program facilitator Dr. Cuba in [place] yesterday, and was told that they are considering a TIPS procedure. During this time, the patient denies any fevers, chills, chest pain, palpitations, abdominal pain, or any nausea/vomiting/diarrhea. The patient will be admitted to the hospitalist service for paracentesis. See H&P for details HOSPITAL COURSE:Patient admitted . Hematesis continued and GI consulted. She underwent EGD showing esophageal varices which were banded. She was hypotensive initially and treated with albumin, midodrine with improvement. She did not re quire blood transfusion. It was recommended to stay on octreotide for 5 day and there was no further bleeding. She had paracentesis performed 02/25 and her ascites continued to improve. May benefit from TIPSS for both intractable ascites and varices. - She was able to tolerate advance in diet. She had no furtehr anemia or hematemesis and was to be discharged on 03/01 when she developped confusion associated with elevated ammonia level. Rifaximin and lactulose started and her mentation returned to baseline on 03/03/19. She was discharged home in stable and improved condition. After discharge I received call that rifaximin was too expensive and could not purchase med. I instructed patient to use lactulose TID instead and not to use rifaximin. DISCHARGE MEDICATIONS: Please see below. ALLERGIES: Please see below. PHYSICAL EXAMINATION ON DISCHARGE: VITAL SIGNS: Please see below. General: AAOx3, NAD HRRR LCTA no W/R/R HEENT: no post nasal drip; normal pharynx Ext: trace ankle edema; Abdomen soft NT distended LABORATORY DATA: Please see below. ACTIVITY: as tolerated DIET: as tolerated DISCHARGE PLAN: discharge home with home health DISCHARGE INSTRUCTIONS: Follow up PCP in 5-7 days follow up GI /liver clinic in 1 month Interventional Radiologist, Dr. Gordillo, can see her on Monday, and can do TIPS in [place] Hold ASA until TIPS procedure done, then can restart when okay with IR Upper endoscopy in 1 month DISCHARGE CONDITION: stable TIME SPENT ON DISCHARGE: 45 minutes. Vital Signs/I&Os Vital Signs Date Time Temp Pulse Resp B/P (MAP) Pulse Ox O2 Delivery O2 Flow Rate FiO2 03/03/19 09:13 18 03/03/19 08:43 130/66 (87) 03/03/19 06:00 97.8 87 93 02/28/19 09:14 2.0 I&O- Last 24 Hours up to 6 AM 03/03/19 06:00 Intake Total 1830 ml Output Total 0 ml Balance 1830 ml Laboratory Data Labs 24H Laboratory Tests 2 03/02/19 11:43: Bedside Glucose (Misc Panel) 325H 03/02/19 16:41: Bedside Glucose (Misc Panel) 355H 03/03/19 06:29: Nucleated Red Blood Cells % (auto) 0.0, Immature Platelet Fraction 4.6, Anion Gap 9, Glomerular Filtration Rate 48.1, Blood Urea Nitrogen 16, Creatinine 1.20, Sodium Level 137, Potassium Level 3.4L, Chloride Level 103, Carbon Dioxide Level 25, Calcium Level 8.4L, Aspartate Amino Transf (AST/SGOT) 19, Alanine Aminotransferase (ALT/SGPT) 20, Alkaline Phosphatase 174H, Total Bilirubin 0.6, Total Protein 6.5, Albumin 2.9L, Ammonia 55H, Albumin/Globulin Ratio 0.81L CBC/BMP Laboratory Tests 03/03/19 06:29 Red Blood Count 3.01 L, Mean Corpuscular Volume 98.3 H, Mean Corpuscular Hemoglobin 30.6, Mean Corpuscular Hemoglobin Concent 31.1 L, Red Cell Distribution Width 17.1 H, Calcium Level 8.4 L, Aspartate Amino Transf (AST/SGOT) 19, Alanine Aminotransferase (ALT/SGPT) 20, Alkaline Phosphatase 174 H, Total Bilirubin 0.6, Total Protein 6.5, Albumin 2.9 L FSBS Laboratory Tests Test 03/02/19 11:43 03/02/19 16:41 Range/Units Bedside Glucose (Misc Panel) 325 355 80-115 MG/DL Microbiology Microbiology 02/25/19 Acid Fast Stain, Received Pending 02/25/19 Mycobacterial Culture, Received Pending 02/25/19 Fungal Smear, Received Pending 02/25/19 Fungal Culture, Received Pending 02/25/19 Gram Stain - Final, Complete 02/25/19 Body Fluid Culture - Final, Complete Discharge Medications Scheduled Calcium Carbonate/Vitamin D3 (Calcium 500-Vit D3 600 Tablet) 1 Tab Tab, 1 TAB PO BID, (Reported) Escitalopram Oxalate (Escitalopram Oxalate) 20 Mg Tab, 20 MG PO DAILY, (R eported) Esomeprazole Magnesium (Nexium) 40 Mg Cap, 40 MG PO DAILY, (Reported) Ferrous Sulfate (Ferrous Sulfate) 325 Mg Tab, 325 MG PO BID, (Reported) Furosemide (Lasix) 40 Mg Tab, 40 MG PO BID, (Reported) Insulin Glargine,Hum.rec.anlog (Lantus Solostar) 100 Unit/1 Ml Insuln.pen, 94 UNITS SC BID, (Reported) Insulin Human Lispro (Novolog) 100 U/Ml Inj, 1 DOSE SC ACHS, (Reported) PER SLIDING SCALE Meclizine HCl (Meclizine HCl) 25 Mg Tab, 25 MG PO BID, (Reported) Midodrine HCl (Midodrine HCl) 5 Mg Tablet, 5 MG PO BID, (Reported) 0800, 1600 Pantoprazole Sodium (Pantoprazole Sodium) 40 Mg Tablet.dr, 40 MG PO BID Rifaximin (Xifaxan) 550 Mg Tablet, 550 MG PO BID Spironolactone (Spironolactone) 100 Mg Tablet, 100 MG PO BID, (Reported) [Lactulose Syrup] 15 ml SYRP, 15 ML PO BID Scheduled PRN Amitriptyline HCl (Amitriptyline HCl) 10 Mg Tablet, 10 MG PO QHS PRN for INSOMNIA, (Reported) Guaifenesin (Guaifenesin) 100 Mg/5 Ml Liquid, 5 ML PO Q4HP PRN for COUGH Ropinirole HCl (Ropinirole HCl) 2 Mg Tablet, 2 MG PO BID PRN for RESTLESSNESS, (Reported) Allergies Coded Allergies: TAPE (Verified Allergy, Mild, 01/23/19) acetaminophen (Verified Adverse Reaction, Intermediate, LIVER PROBLEMS, 01/23/19) candesartan (Verified Adverse Reaction, Intermediate, CHEST PAIN, 01/23/19) hydrochlorothiazide (Verified Adverse Reaction, Intermediate, CHEST PAIN, 01/23/19) ibuprofen (Verified Adverse Reaction, Intermediate, LIVER PROBLEMS, 01/23/19) NADIA HUGO DO Mar 03, 2019 10:35
[2019-03-05] MEDS ORDERED: PROV108A INH (13:45)
[2019-03-07] MEDS ORDERED: PROV108A INH (11:09)
[2019-03-19] MEDS ORDERED: LORA0.5T5 PO (14:00)
== END 2019-03-03 15:03 | disposition home health service (06) | DRG 441 ==
LOC: M ED 15:48 → M ED INP 15:49 → OBSVTOIN 02-22 10:12 → EEVIPCON 02-22 10:12 → INTOOBSV 02-22 10:12 → M MSPAV 02-22 15:50 → M PCU 02-24 09:47 → M MSPAV 02-28 23:34
PROVIDERS: ADMIT Internal Medicine; ATTEND Family Medicine
PROC: 0W3P8ZZ Control Bleeding in Gastrointestinal Tract, Via Natural or Artificial Opening Endoscopic (ICD-10-PCS; principal; 2019-02-24 10:25)
PROC: 0W9G3ZZ Drainage of Peritoneal Cavity, Percutaneous Approach (ICD-10-PCS; 2019-02-25)
DX: K75.81 Nonalcoholic steatohepatitis (NASH) (principal); I85.11 Secondary esophageal varices with bleeding; D62 Acute posthemorrhagic anemia; K92.0 Hematemesis; J90 Pleural effusion, not elsewhere classified; D61.818 Other pancytopenia; Z68.42 Body mass index [BMI] 45.0-49.9, adult; D68.4 Acquired coagulation factor deficiency; K21.9 Gastro-esophageal reflux disease without esophagitis; D50.9 Iron deficiency anemia, unspecified; E66.01 Morbid (severe) obesity due to excess calories; F41.9 Anxiety disorder, unspecified; F32.9 Major depressive disorder, single episode, unspecified; I95.9 Hypotension, unspecified; E11.9 Type 2 diabetes mellitus without complications; G47.33 Obstructive sleep apnea (adult) (pediatric); D69.6 Thrombocytopenia, unspecified; E78.5 Hyperlipidemia, unspecified; Z79.899 Other long term (current) drug therapy; Z79.4 Long term (current) use of insulin; Z88.8 Allergy status to other drugs, medicaments and biological substances; Z88.6 Allergy status to analgesic agent; K72.90 Hepatic failure, unspecified without coma

== ENCOUNTER → 2019-02-21 | Outpatient (REF) | payer OTHER ==
[~2019-02-21] MED LIST changes: -LACT10SO29 PO; -PANT-23 PO
[2019-02-21 17:12] LABS: EOS # 0.2 10^3/uL (0.0-0.50); EOS % 5.8 % (0.0-3.0); HEMATOCRIT 33.9 % (36.0-47.0); HEMOGLOBIN 10.1 g/dl (12.0-15.5); LYMPH # 0.6 10^3/uL (1.5-4.5); LYMPH % 13.8 % (24.0-44.0); MEAN CORPUSCULAR HEMOGLOBIN 29.9 pg (27.0-33.0); MEAN CORPUSCULAR HGB CONC 29.8 g/dl (32.0-36.5); MEAN CORPUSCULAR VOLUME 100.3 fl (80.0-96.0); MONO # 0.4 10^3/uL (0.0-0.8); MONO % 10.7 % (0.0-5.0); NEUTROPHILS # 2.8 10^3/uL (1.8-7.7); NEUTROPHILS % 68.5 % (36.0-66.0); RED BLOOD COUNT 3.38 10^6/uL (4.00-5.40); WHITE BLOOD COUNT 4.1 10^3/uL (4.0-10.0)
[2019-02-21 17:13] LABS: PLATELET COUNT, AUTOMATED 94 10^3/uL (150-450)
[2019-02-21 17:23] LABS: INR 1.29; PROTHROMBIN TIME 15.8 SECONDS (11.8-14.0)
[2019-02-21 17:39] LABS: BILIRUBIN,TOTAL 0.7 MG/DL (0.2-1.0); CALCIUM LEVEL 8.2 MG/DL (8.8-10.2); CREATININE FOR GFR 1.06 MG/DL (0.55-1.30); GLOMERULAR FILTRATION RATE 55.6 (>45); POTASSIUM SERUM 4.3 MEQ/L (3.5-5.1); TOTAL PROTEIN 6.5 GM/DL (6.4-8.2)
== END ==
LOC: M SFHCLERA 14:19
PROVIDERS: ATTEND Family Medicine
DX: K75.81 Nonalcoholic steatohepatitis (NASH) (principal)

== ENCOUNTER 2019-03-05 09:06 | Emergency (ER) | payer OTHER ==
[~2019-03-05] VITALS: Ht 154.9 cm; Wt 101.8 kg
[~2019-03-05 09:06] MED LIST changes: +GUAI100S51 PO; +Lactulose Syrup PO; +MECL-68 PO; -MECL1TAB31 PO; +PANT40TA3 PO; +XIFA550T PO
[2019-03-05] MEDS ORDERED: IPRATROPIUM 0.5MG/ALBUTEROL 2.5MG INH SOL UD 3ML (DUONEB)(J7620) NEB ONE (10:15)
[2019-03-05 10:30] LABS: BASO % 0.5 % (0.0-1.0); EOS # 0.1 10^3/uL (0.0-0.50); EOS % 3.6 % (0.0-3.0); HEMATOCRIT 28.8 % (36.0-47.0); HEMOGLOBIN 8.9 g/dl (12.0-15.5); LYMPH # 0.3 10^3/uL (1.5-4.5); LYMPH % 12.2 % (24.0-44.0); MEAN CORPUSCULAR HEMOGLOBIN 30.6 pg (27.0-33.0); MEAN CORPUSCULAR HGB CONC 30.9 g/dl (32.0-36.5); MONO # 0.2 10^3/uL (0.0-0.8); NEUTROPHILS # 1.6 10^3/uL (1.8-7.7); NEUTROPHILS % 73.2 % (36.0-66.0); RED BLOOD COUNT 2.91 10^6/uL (4.00-5.40); WHITE BLOOD COUNT 2.2 10^3/uL (4.0-10.0)
[2019-03-05 10:35] LABS: INR 1.4; PROTHROMBIN TIME 16.9 SECONDS (11.8-14.0)
[2019-03-05 10:46] LABS: PLATELET COUNT, AUTOMATED 66 10^3/uL (150-450)
[2019-03-05 10:58] LABS: ALBUMIN 2.8 GM/DL (3.2-5.2); BILIRUBIN,DIRECT 0.3 MG/DL (0.0-0.2); BILIRUBIN,TOTAL 0.7 MG/DL (0.2-1.0); CALCIUM LEVEL 8.3 MG/DL (8.8-10.2); CREATININE FOR GFR 1.24 MG/DL (0.55-1.30); GLOMERULAR FILTRATION RATE 46.4 (>45); TOTAL PROTEIN 6.2 GM/DL (6.4-8.2)
--- NOTE | 2019-03-05 11:09 | REP ---
PA and lateral chest: Comparison is 02/24/2019. The patient has a known loculated pleural fluid collection on the right. This is unchanged. Left lung is clear. Cardiac size normal. The aleah, mediastinum, skeletal structures are. Impression: Persisting pleural fluid collection on the right, unchanged. Electronically Signed by Avelino Nam MD 03/05/2019 11:01 A
--- NOTE | 2019-03-05 12:26 | ED PDOC ---
Post-Departure Follow-Up ashely saldana faxed formal report of cxr for fu Ana Manrique MD Mar 05, 2019 12:26
[2019-03-05 13:44] VITALS: O2SAT 97
[2019-03-05] MEDS ORDERED: ALBU17IN2 INH (13:45)
[2019-03-05 14:48] VITALS: BP 108/62
--- NOTE | 2019-03-05 17:10 | REP ---
Ultrasound-guided paracentesis The procedure was performed under the direct supervision of Dr. Cardoza. The risks and benefits of the procedure were explained to the patient and informed consent was obtained. The largest pocket of fluid was localized in the right flank using ultrasound guidance. The skin was prepped and draped in a sterile fashion. 1% lidocaine was used as a local anesthetic. An 8-Amharic multi side-hole catheter was inserted using trocar technique. 1800 ml of red/[place] fluid was withdrawn and discarded. The patient tolerated the procedure well and there were no immediate complications. After the appropriate amount of monitored convalescence the patient was discharged from the department. Reviewed by ARMANDO Barlow 03/05/2019 04:58 P Electronically Signed by Avelino Cardoza MD 03/05/2019 05:01 P
[2019-03-18] MEDS ORDERED: ATIV1TAB10 PO (19:48)
== END 2019-03-05 14:54 | disposition home or self-care (01) ==
LOC: EDBD 09:06 → M ED 09:06
DX: J06.9 Acute upper respiratory infection, unspecified (principal); K75.81 Nonalcoholic steatohepatitis (NASH); R18.8 Other ascites; R14.0 Abdominal distension (gaseous); E11.9 Type 2 diabetes mellitus without complications; I10 Essential (primary) hypertension; E66.9 Obesity, unspecified; Z79.899 Other long term (current) drug therapy; Z79.4 Long term (current) use of insulin; Z88.8 Allergy status to other drugs, medicaments and biological substances; Z88.6 Allergy status to analgesic agent; Z91.048 Other nonmedicinal substance allergy status

== ENCOUNTER 2019-03-07 06:52 | Inpatient (IN) | payer OTHER ==
[~2019-03-07] VITALS: Ht 154.9 cm; Wt 104.0 kg
[~2019-03-07 06:52] MED LIST changes: +ALBU17IN2 INH
[2019-03-07] MEDS: IPRATROPIUM 0.5MG/ALBUTEROL 2.5MG INH SOL UD 3ML (DUONEB)(J7620) NEB PRN ×4 (08:35→23:21)
[2019-03-07] MEDS ORDERED: LEVEMIR (INSULIN DETEMIR) 1 UNITS/0.01ML SC SCH (09:00)
[2019-03-07 09:09] LABS: HEMATOCRIT 28.8 % (36.0-47.0); LYMPH # 0.4 10^3/uL (1.5-4.5); LYMPH % 8.6 % (24.0-44.0); MEAN CORPUSCULAR HEMOGLOBIN 29.7 pg (27.0-33.0); MEAN CORPUSCULAR HGB CONC 31.3 g/dl (32.0-36.5); MONO # 0.2 10^3/uL (0.0-0.8); MONO % 3.2 % (0.0-5.0); NEUTROPHILS # 4.1 10^3/uL (1.8-7.7); NEUTROPHILS % 87.8 % (36.0-66.0); RED BLOOD COUNT 3.03 10^6/uL (4.00-5.40); WHITE BLOOD COUNT 4.6 10^3/uL (4.0-10.0)
[2019-03-07 09:12] LABS: PLATELET COUNT, AUTOMATED 65 10^3/uL (150-450)
--- NOTE | 2019-03-07 09:52 | REP ---
CHEST, TWO VIEWS: Two views of the chest are performed and compared to prior study of 03/05/2019. There is a fairly large right pleural effusion, which continues to increase in size. There is adjacent right basilar atelectasis/infiltrate. Left lung is clear. The heart is not enlarged. Mediastinal silhouette is unchanged. IMPRESSION: Increased right effusion and adjacent right base atelectasis/infiltrate. Electronically Signed by Avelino Cardoza MD 03/07/2019 12:42 P
[2019-03-07 10:20] LABS: BLOOD UREA NITROGEN 22 MG/DL (7-18); CALCIUM LEVEL 8.1 MG/DL (8.8-10.2); CARBON DIOXIDE LEVEL 20 MEQ/L (21-32); CHLORIDE LEVEL 106 MEQ/L (98-107); CK-MB VALUE MASS < 1.0 NG/ML (<3.6); CPK CREATINE PHOSPHOKINASE 71 U/L (26-192); CREATININE FOR GFR 1.92 MG/DL (0.55-1.30); GLUCOSE, FASTING 351 MG/DL (70-100); MB/CK RELATIVE INDEX 1.41 (< OR =4); NT-PRO BNP 147 PG/ML (<125); POTASSIUM SERUM 3.7 MEQ/L (3.5-5.1); SODIUM LEVEL 138 MEQ/L (136-145); TROPONIN I < 0.02 NG/ML (< 0.10)
[2019-03-07] MEDS ORDERED: LACT10SO29 PO (11:09)
[2019-03-07] MEDS ORDERED: XIFA550T PO (11:09)
[2019-03-07] MEDS ORDERED: GUAI100S51 PO (11:09)
[2019-03-07] MEDS ORDERED: ALBU17IN2 INH (11:09)
[2019-03-07] MEDS ORDERED: PANT-23 PO (11:09)
[2019-03-07] MEDS ORDERED: GLUCOSE 4 GM CHEW TABLET PO PRN (12:00)
[2019-03-07] MEDS ORDERED: GLUCAGON FOR INJ 1 MG VIAL (J1610) SC PRN (12:00)
[2019-03-07] MEDS ORDERED: DEXTROSE 50% 50 ML SYRINGE IV PRN (12:00)
[2019-03-07] MEDS ORDERED: AMITRIPTYLINE 10 MG TAB PO PRN (12:00)
[2019-03-07] MEDS: ESCITALOPRAM OXALATE 10 MG TAB (LEXAPRO) PO SCH (12:50)
[2019-03-07] MEDS: PANTOPRAZOLE 40MG TAB (PROTONIX) PO SCH (12:50)
[2019-03-07] MEDS: FERROUS SULFATE 325MG TAB PO SCH ×2 (12:50→20:53)
[2019-03-07] MEDS: LACTULOSE 20 GM/30 ML SYRUP UD PO SCH (12:50)
[2019-03-07] MEDS: HumaLOG INSULIN (NovoLOG) PER UNIT SC SCH ×3 (12:50→21:51)
[2019-03-07] MEDS: cefTRIAXone SOD 1 GM in D5W MINI-BAG PLUS 50 ML IV SCH (12:51)
[2019-03-07 13:45] VITALS: BP 131/63
[2019-03-07 14:09] LABS: INR 1.58; PARTIAL THROMBOPLASTIN TIME 28.9 SECONDS (25.0-38.4); PROTHROMBIN TIME 18.6 SECONDS (11.8-14.0)
--- NOTE | 2019-03-07 15:16 | REP ---
LIMITED RIGHT PLEURAL ULTRASOUND: Real-time sonographic evaluation of right pleural space performed prior to a scheduled thoracentesis. A moderate to large right pleural effusion is present. Prior to starting the thoracentesis, the patient declined the procedure. The thoracentesis is not performed. Electronically Signed by Avelino Cardoza MD 03/07/2019 05:46 P
--- NOTE | 2019-03-07 15:43 | HPEPDOC ---
General Date of Admission Mar 07, 2019 at 11:00 Date of Service: Mar 07, 2019 Chief Complaint The patient is a 63-year-old female admitted with a reason for visit of Pleural Effusion Associated W Hepatic Disorder. History of Present Illness 63-year-old female, past medical history significant for insulin-dependent DMII, End stage liver disease 2/2 HICKS with ascites requiring frequent paracentesis, thrombocytopenia, hyperlipidemia DARIA, Vertigo, Recurrent pleural effusion s/p talc pleurodesis, Morbid obesity, Anxiety and depression presents to the ER with the chief complaint of increased SOB. Of note, the patient was recently admitted here and discharged on 03/03/19 for shortness of breath related to ascites. She also had an ER visit on 03/05, and she had yet another paracentesis in the ER performed by the ER physician. At this time, the patient returned for shortness of breath and was found to have an acute kidney injury on lab work and increased right-sided pleural effusion. She has been admitted to the hospitalist service for further evaluation and management. Home Medications Scheduled Calcium Carbonate/Vitamin D3 (Calcium 500-Vit D3 600 Tablet) 1 Tab Tab, 1 TAB PO BID, (Reported) Escitalopram Oxalate (Escitalopram Oxalate) 20 Mg Tab, 20 MG PO DAILY, (Reported) Esomeprazole Magnesium (Nexium) 40 Mg Cap, 40 MG PO DAILY, (Reported) Ferrous Sulfate (Ferrous Sulfate) 325 Mg Tab, 325 MG PO BID, (Reported) Furosemide (Lasix) 40 Mg Tab, 40 MG PO BID, (Reported) Insulin Glargine,Hum.rec.anlog (Lantus Solostar) 100 Unit/1 Ml Insuln.pen, 94 UNITS SC BID, (Reported) Insulin Human Lispro (Novolog) 100 U/Ml Inj, 1 DOSE SC ACHS, (Reported) PER SLIDING SCALE Lactulose (Lactulose) 10 Gm/15 Ml Solution, 15 ML PO DAILY, (Reported) Meclizine HCl (Meclizine HCl) 25 Mg Tab, 25 MG PO BID, (Reported) Midodrine HCl (Midodrine HCl) 5 Mg Tablet, 5 MG PO BID, (Reported) 0800, 1600 Pantoprazole Sodium (Pantoprazole Sodium) 40 Mg Tablet.dr, 40 MG PO BID, (Reported) Rifaximin (Xifaxan) 550 Mg Tablet, 550 MG PO BID, (Reported) Spironolactone (Spironolactone) 100 Mg Tablet, 100 MG PO BID, (Reported) Scheduled PRN Albuterol Sulfate (Proventil Hfa) 6.7 Gm Hfa.aer.ad, 2 PUFF INH QID PRN for SHORTNESS OF BREATH, (Reported) Amitriptyline HCl (Amitriptyline HCl) 10 Mg Tablet, 10 MG PO QHS PRN for INSOMNIA, (Reported) Guaifenesin (Guaifenesin) 100 Mg/5 Ml Liquid, 100 MG PO Q4H PRN for COUGH, (Reported) Ropinirole HCl (Ropinirole HCl) 2 Mg Tablet, 2 MG PO BID PRN for RESTLESSNESS, (Reported) Allergies Coded Allergies: TAPE (Verified Allergy, Mild, 03/07/19) acetaminophen (Verified Adverse Reaction, Intermediate, LIVER PROBLEMS, 03/07/19) candesartan (Verified Adverse Reaction, Intermediate, CHEST PAIN, 03/07/19) hydrochlorothiazide (Verified Adverse Reaction, Intermediate, CHEST PAIN, 03/07/19) ibuprofen (Verified Adverse Reaction, Intermediate, LIVER PROBLEMS, 03/07/19) Past Medical History Medical History As noted in HPI. Social History * Smoker: Denies Alcohol: Denies Drugs: denies Review of Systems Other systems 10 point review of systems negative unless otherwise specified in HPI. Physical Examination General Exam: Positive: Alert, Cooperative, Mild Distress (2/2 SOB) ENT Exam: Positive: Atraumatic, Mucous membr. moist/pink Chest Exam: Positive: Diminished Heart Exam: Positive: Tachycardic, Normal S1, Normal S2 Telemetry: Positive: Sinus Abdomen Exam: Positive: Other (distended secondary to underlying ascites, but still soft to palpation. No tenderness to palpation); Negative: Tenderness Extremity Exam: Negative: Tenderness Psych Exam: Positive: Oriented x 3 Vital Signs Vital Signs Date Time Temp Pulse Resp B/P (MAP) Pulse Ox O2 Delivery O2 Flow Rate FiO2 03/07/19 14:45 104 16 99 03/07/19 14:15 98.0 03/07/19 14:11 114/53 (73) 03/07/19 10:37 Room Air Laboratory Data Labs 24H Laboratory Tests 2 03/07/19 08:50: Immature Granulocyte % (Auto) 0.4, White Blood Count 4.6, Red Blood Count 3.03L, Hemoglobin 9.0L, Hematocrit 28.8L, Mean Corpuscular Volume 95.0, Mean Corpuscular Hemoglobin 29.7, Mean Corpuscular Hemoglobin Concent 31.3L, Red Cell Distribution Width 17.0H, Platelet Count 65L, Neutrophils (%) (Auto) 87.8H, Lymphocytes (%) (Auto) 8.6L, Monocytes (%) (Auto) 3.2, Eosinophils (%) (Auto) 0.0, Basophils (%) (Auto) 0.0, Neutrophils # (Auto) 4.1, Lymphocytes # (Auto) 0.4L, Monocytes # (Auto) 0.2, Eosinophils # (Auto) 0.0, Basophils # (Auto) 0.0, Nucleated Red Blood Cells % (auto) 0.0, Immature Platelet Fraction 5.0, Anion Gap 12, Glomerular Filtration Rate 28.0L, Lactic Acid Level 2.7*H, Blood Urea Nitrogen 22H, Creatinine 1.92#H, Sodium Level 138, Potassium Level 3.7, Chloride Level 106, Carbon Dioxide Level 20L, Calcium Level 8.1L, Total Creatine Kinase 71, Creatine Kinase MB < 1.0, Creatine Kinase MB Relative Index 1.41, Troponin I < 0.02, [id number]-Type Natriuretic Peptide 147H 03/07/19 12:35: Bedside Glucose (Misc Panel) 431H 03/07/19 13:08: Lactic Acid Followup at 4 Hours 8.4*H 03/07/19 13:38: Prothrombin Time 18.6H, Prothromb Time International Ratio 1.58, Activated Partial Thromboplast Time 28.9 03/07/19 14:28: Lactic Acid Level 8.7*H CBC/BMP Laboratory Tests 03/07/19 08:50 Red Blood Count 3.03 L, Mean Corpuscular Volume 95.0, Mean Corpuscular Hemoglobin 29.7, Mean Corpuscular Hemoglobin Concent 31.3 L, Red Cell Distribution Width 17.0 H, Neutrophils (%) (Auto) 87.8 H, Lymphocytes (%) (Auto) 8.6 L, Monocytes (%) (Auto) 3.2, Eosinophils (%) (Auto) 0.0, Basophils (%) (Auto) 0.0, Neutrophils # (Auto) 4.1, Lymphocytes # (Auto) 0.4 L, Monocytes # (Auto) 0.2, Eosinophils # (Auto) 0.0, Basophils # (Auto) 0.0, Calcium Level 8.1 L, Total Creatine Kinase 71 Plan / VTE VTE Prophylaxis Ordered?: Yes Plan Plan Shortness of Breath 2/2 Right Sided Pleural Effusion CXR noted We will order a CT Chest for further evaluation U/S Guided Thoracentesis was ordered, but the patient could not tolerate the procedure Patient saturating 99% on RA, and not otherwise in signficant respiratory distress We will cont to monitor KENDRICK superimposed on CKD Baseline Creatinine ~1.2 (1.92 on admission) Possibly 2/2 hepatorenal syndrome and intravascular volume depletion Diuretics held, Albumin infusions ordered We will follow up with repeat BMP following infusions End Stage Liver Disease with Cirrhosis 2/2 HICKS MELD Score 19--6% Mortality in 3 months Cont regimen as ordered Lactic Acidosis of Unclear Etiology Possibly 2/2 beta-adrenergic therapy given in the ER (Patient was given [id number] treatments in the ER) in the setting of liver cirrhosis Patient does not appear septic, no abdominal discomfort to suggest acute abdomen--We will order a CT Chest/Abd/Pel to further discern possible causes The patient's blood pressure is also near her baseline (90s/60s) We will cont to monitor at this time Possible Right Sided Infiltrate Sputum Culture ordered We will start the patient on Rocephin Diabetes mellitus Continue insulin regimen as ordered Chronic Hypotension Albumin ordered, Cont Midodrine The patient's B/P is at about her baseline Iron deficiency anemia Continue for sulfate GERD Continue PPI Restless leg syndrome Continue ropinirole Anxiety/depression Continue amitriptyline, escitalopram DVT prophylaxis TEDs/SCDs CONCHA THURMAN MD Mar 07, 2019 15:43
[2019-03-07 16:04] LABS: ALBUMIN 2.7 GM/DL (3.2-5.2); BILIRUBIN,DIRECT 0.4 MG/DL (0.0-0.2); BILIRUBIN,TOTAL 0.8 MG/DL (0.2-1.0); CALCIUM LEVEL 8.3 MG/DL (8.8-10.2); CREATININE FOR GFR 2.17 MG/DL (0.55-1.30); GLOMERULAR FILTRATION RATE 24.3 (>45); POTASSIUM SERUM 3.8 MEQ/L (3.5-5.1)
--- NOTE | 2019-03-07 16:18 | REP ---
CT of the chest without IV contrast: Comparisons are the chest CT dated 04/02/2018 and recent PA and lateral plain film studies of the chest dated 03/07/2019 and 03/05/2090. The known large loculated pleural fluid collection in the right lower lobe is unchanged from all prior studies. This results in compression atelectasis of the lower lobe as previously. There is ascites in the visualized upper abdomen. This is also unchanged. The lung sweet otherwise clear and unchanged. There is no mediastinal or axillary lymph node enlargement. The study is insensitive for hilar lymph node enlargement in the absence of IV contrast. The unenhanced thoracic aorta is unremarkable. The cardiac size is normal. There is no pericardial effusion. Hypodense nodules are again identified in the left thyroid lobe and the left thyroid lobe is enlarged, as previously. Impression: No significant change from the prior chest CT. There is a large loculated pleural fluid collection posterior inferiorly in the right hemithorax with compression atelectasis of the right lower lobe. This is unchanged. Enlarged thyroid left lobe with hypodense nodules, unchanged. Electronically Signed by Avelino Nam MD 03/07/2019 04:09 P
[2019-03-07] MEDS: MIDODRINE 5 MG TAB PO SCH (16:37)
[2019-03-07] MEDS: rifAXIMin 550 MG TAB (XIFAXAN) PO SCH ×2 (16:38→20:53)
--- NOTE | 2019-03-07 16:45 | REP ---
HISTORY: History of lactic acidosis. COMPARISON: 02/07/2019, a contrast enhanced exam. Today's examination was ordered and performed without the administration of either oral bowel preparatory contrast or intravenous contrast. This decreases the sensitivity of the examination rather significantly. The prior exam was a contrast enhanced exam. Once again, there is ascites and there is free fluid trapped between the leafs of the small bowel mesentery and in the pericolic gutters. The amount of fluid has increased slightly. Once again, there is a slight micronodular surface to the hepatic edge. There is splenomegaly, unchanged. There is advanced cholelithiasis, which is stable. No significant changes are suspected in the pancreas, adrenal glands, or kidneys. No significant changes seen involving the abdominal aorta or periaortic regions. There is no intestinal obstruction. The bowel loops are seen in a limited fashion due to the lack of contrast administration. There is no evidence of free intraperitoneal air. There are a few gas filled slightly dilated small bowel loops in the abdomen. At the level of the umbilicus in the anterior abdominal wall, note is again made of a complex cystic appearing collection, status quo. Bone window technique throughout the examination shows no change in the osseous structures. IMPRESSION: 1. Increased ascites as described above. 2. Cholelithiasis which is known. 3. Cystic mass anterior abdominal wall which is unchanged. 4. Splenomegaly which is unchanged. 5. Other findings and chronic changes as described above. There is a micronodular surface to the liver edge suggesting the clinical diagnosis of cirrhosis. Electronically Signed by Den Su DO 03/08/2019 02:15 P
[2019-03-07] MEDS ORDERED: HumaLOG INSULIN (NovoLOG) PER UNIT SC ONE (17:15)
[2019-03-07 17:46] LABS: ABG BASE EXCESS -5.8 (-2.0-2.0); ABG O2 SATURATION 95.3 % (95.0-99.0); ABG PARTIAL PRESSURE CO2 24.7 mmHg (35.0-45.0); ABG PARTIAL PRESSURE O2 79.1 mmHg (75.0-100.0); ABG STANDARD HCO3 19.6 MEQ/L (22.0-26.0); ABG TOTAL CO2 17.8 MEQ/L (23.0-31.0); ABG pH (ARTERIAL) 7.456 UNITS (7.350-7.450)
[2019-03-07] MEDS ORDERED: HumaLOG INSULIN (NovoLOG) PER UNIT SC STA (18:55)
[2019-03-07 19:00] VITALS: BP 110/53
[2019-03-07] MEDS ORDERED: NS 750 ML IV SCH (19:00)
--- NOTE | 2019-03-07 20:45 | ECGEPIP ---
[facility] - ED Test Date: 2019-03-07 Pat Name: SAROJ JOHNSON Department: Room: - Gender: Female Cover Maker: : [id number] Requested By: RADHA JAIN Order Number: [id number] Reading MD: Jay Flores Measurements Intervals [place] Rate: 114 P: 27 NH: 129 QRS: QRSD: 102 T: 33 QT: 289 QTc: 400 Interpretive Statements SINUS TACHYCARDIA NONSPECIFIC ST & T-WAVE ABNORMALITY POOR R WAVE PROGRESSION SIMILAR TO 02/22/19 Electronically Signed on 03-07-2019 20:45:56 EDT by Jay Flores
[2019-03-07] MEDS: LEVEMIR (INSULIN DETEMIR) 1 UNITS/0.01ML SC SCH (21:53)
[2019-03-07 23:10] LABS: ABG BASE EXCESS -3.8 (-2.0-2.0); ABG HCO3 18.8 MEQ/L (22.0-26.0); ABG O2 SATURATION 98.1 % (95.0-99.0); ABG PARTIAL PRESSURE CO2 25.7 mmHg (35.0-45.0); ABG PARTIAL PRESSURE O2 104.7 mmHg (75.0-100.0); ABG STANDARD HCO3 21.3 MEQ/L (22.0-26.0); ABG TOTAL CO2 19.6 MEQ/L (23.0-31.0); ABG pH (ARTERIAL) 7.482 UNITS (7.350-7.450)
[2019-03-07 23:39] LABS: ACETONE/KETONE 0.67 MG/DL (<2.81); CALCIUM LEVEL 8.5 MG/DL (8.8-10.2); CREATININE FOR GFR 1.65 MG/DL (0.55-1.30); GLOMERULAR FILTRATION RATE 33.3 (>45); POTASSIUM SERUM 3.5 MEQ/L (3.5-5.1)
[2019-03-07] MEDS: rOPINIRole 1MG TAB PO PRN (23:49)
[2019-03-08] VITALS (12 sets, daily range): BP systolic 99–144; BP diastolic 50–77
[2019-03-08] MEDS: IPRATROPIUM 0.5MG/ALBUTEROL 2.5MG INH SOL UD 3ML (DUONEB)(J7620) NEB PRN ×6 (02:24→22:29)
[2019-03-08] MEDS ORDERED: HumaLOG INSULIN (NovoLOG) PER UNIT SC ONE (03:00)
[2019-03-08 03:20] LABS: HEMATOCRIT 24.7 % (36.0-47.0); HEMOGLOBIN 7.8 g/dl (12.0-15.5); MEAN CORPUSCULAR HEMOGLOBIN 30.5 pg (27.0-33.0); MEAN CORPUSCULAR HGB CONC 31.6 g/dl (32.0-36.5); MEAN CORPUSCULAR VOLUME 96.5 fl (80.0-96.0); RED BLOOD COUNT 2.56 10^6/uL (4.00-5.40); WHITE BLOOD COUNT 3.7 10^3/uL (4.0-10.0)
[2019-03-08 03:25] LABS: PLATELET COUNT, AUTOMATED 53 10^3/uL (150-450)
[2019-03-08 03:39] LABS: ALBUMIN 2.8 GM/DL (3.2-5.2); BILIRUBIN,DIRECT 0.4 MG/DL (0.0-0.2); CALCIUM LEVEL 8.3 MG/DL (8.8-10.2); CREATININE FOR GFR 1.44 MG/DL (0.55-1.30); MAGNESIUM LEVEL 1.7 MG/DL (1.8-2.4); POTASSIUM SERUM 3.4 MEQ/L (3.5-5.1); TOTAL PROTEIN 6.1 GM/DL (6.4-8.2)
--- NOTE | 2019-03-08 07:01 | REP ---
Clinical: Dyspnea. Comparison: 03/07/2019. Findings: Suspected right pleural effusion and right lower lobe infiltrate remains essentially unchanged. Right-sided pleural thickening also noted. Left hemithorax appears well aerated and clear. Cardiac silhouette is normal. Skeletal structures are intact. Impression: No significant change from prior examination. Right mid to lower opacity suggesting infiltrate and effusion along with mild pleural thickening. Electronically Signed by Pk Hansen MD 03/08/2019 06:53 A
[2019-03-08] MEDS: rifAXIMin 550 MG TAB (XIFAXAN) PO SCH ×2 (08:00→21:08)
[2019-03-08] MEDS ORDERED: MAGNESIUM OXIDE 400 MG TAB (MAG-OX) PO ONE (08:00)
[2019-03-08] MEDS ORDERED: POTASSIUM CHLORIDE 10 MEQ SR TABLET PO ONE (08:00)
[2019-03-08] MEDS: HumaLOG INSULIN (NovoLOG) PER UNIT SC SCH ×4 (08:00→21:30)
[2019-03-08] MEDS: ESCITALOPRAM OXALATE 10 MG TAB (LEXAPRO) PO SCH (08:00)
[2019-03-08] MEDS: PANTOPRAZOLE 40MG TAB (PROTONIX) PO SCH (08:00)
[2019-03-08] MEDS: FERROUS SULFATE 325MG TAB PO SCH ×2 (08:00→21:08)
[2019-03-08] MEDS: LEVEMIR (INSULIN DETEMIR) 1 UNITS/0.01ML SC SCH ×2 (08:01→21:31)
[2019-03-08] MEDS: MIDODRINE 5 MG TAB PO SCH ×2 (08:01→15:38)
[2019-03-08] MEDS: LACTULOSE 20 GM/30 ML SYRUP UD PO SCH (08:01)
[2019-03-08] MEDS: BENZONATATE 100 MG CAP PO PRN ×3 (08:20→21:31)
--- NOTE | 2019-03-08 12:57 | CR ---
DATE OF CONSULTATION: 03/08/2019 HISTORY OF PRESENT ILLNESS: Ms. 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 The patient had recently been admitted in the middle of February and discharged on March 03, 2019. During that admission, she had GI bleed with esophageal variceal bleeding and portal hypertensive gastropathy, had an EGD done with banding of varices on 02/24/2019. She also had a paracentesis done for her decompensated cirrhosis. The patient was also noted to have hepatic encephalopathy and was started on rifaximin and lactulose. She was discharged on 03/03/2019. The patient then presented to the ED on 03/05/2019 with complaint of shortness of breath and cough. She had a repeat paracentesis done at that time in the ED with removal of 1.8 liters of fluid. The patient was discharged home and then presented again on 03/07 with complaint of increasing shortness of breath, cough and wheezing. The patient was noted on this admission to have some lower blood pressures than usual as well as new acute kidney injury (KENDRICK). She was also found on imaging to have a larger right pleural effusion compared to her previous images. The patient was ordered for an ultrasound guided thoracentesis yesterday, but she refused the procedure. She reports that her symptoms are currently unchanged. She continues to have significant coughing, which is mostly nonproductive, occasionally productive of some scant mucous but no hemoptysis. She continues to have wheezing as well as shortness of breath. The patient was given multiple doses of albuterol nebulizer in the ED and was noted to have increased lactic acidosis. She was given albumin infusion for possible hepatorenal syndrome as well as normal saline fluid hydration. The patient currently reports some occasional abdominal tenderness with coughing mostly. She had also had some episodes of nausea and some vomiting and diarrhea prior to her admission. She did, as per the daughter, have episodes of melena with black dark tarry stools. She denies any chest pains. No fevers or chills recently. PAST MEDICAL HISTORY: Insulin dependent diabetes. End stage cirrhosis secondary to HICKS. Decompensated cirrhosis with ascites requiring frequent paracentesis. Thrombocytopenia and coagulopathy secondary to her cirrhosis. Upper gastrointestinal (GI) bleed with history of esophageal varices status post banding and portal hypertensive gastropathy. Hepatic encephalopathy. Recurrent right pleural effusion status post talc pleurodesis. Morbid obesity. Hyperlipidemia. Anxiety and depression. Suspected obstructive sleep apnea (DARIA). PAST SURGICAL HISTORY: Talc pleurodesis in 2017. Multiple paracenteses. Lower back nerve block. History of cardiac cath. History of hernia repair. Appendectomy. Liver biopsy in 2016. Right elbow and rotator cuff repair. Left knee surgery. Hysterectomy. HOME MEDICATIONS: - calcium carbonate - vitamin D - escitalopram - Nexium - ferrous sulfate - Lasix - Lantus - lispro - lactulose -meclizine - midodrine - rifaximine - spironolactone - albuterol as needed - amitriptyline as needed - guaifenesin - ropinirole ALLERGIES: 1. Tape. 2. ACETAMINOPHEN. 3. CANDESARTAN. 4. HYDROCHLOROTHIAZIDE. 5. IBUPROFEN. SOCIAL HISTORY: Patient denies a history of smoking. No history of alcohol abuse. FAMILY HISTORY: Father with a history of coronary artery disease (CAD). Mother with a history of diabetes. Strong family history of hypertension. PHYSICAL EXAMINATION: Temperature 97.8, T-max on admission was 100.4, pulse 100, respirations 16, blood pressure 99/53, oxygen saturation 94 to 97% on 2 liters nasal cannula. Ins 750, out 225 mL. GENERAL: Patient is a morbidly obese female, is lying in bed, using some accessory muscles for respiration and appears to be mildly tachypneic. She is coughing during examination and also noted to have audible wheezing. HEENT: Normocephalic, atraumatic. Pupils are equal and reactive to light bilaterally. Moist mucous membranes. NECK: Supple, no palpable adenopathy. Unable to appreciate jugular venous distention (JVD) due to body habitus. CARDIOVASCULAR: Regular rate and rhythm. Normal S1, S2. Distant heart sounds. Unable to appreciate murmurs. PULMONARY: Diminished breath sounds. Faint wheezing noted bilaterally with decreased breath sounds also, all at the right base. ABDOMEN: Distended, soft with tenderness palpated in the right upper and lower quadrant as well as in the left lower quadrant. LOWER EXTREMITIES: There is no lower extremity edema noted bilaterally. LABS: WBC 3.7, hemoglobin trending down to 7.8, platelets 53. Chemistries: Sodium 137, potassium 3.4, chloride 107, bicarb 22, BUN 24, creatinine 1.44, glucose is 280, lactic acid trending down to 2.6, magnesium 1.7, AST/ALT within normal limits. ABG pH 7.452, pCO2 25.7, po02 of 104.7. Ketones were negative. INR on admission was 1.58. IMAGING: Chest ultrasound - there is a moderate to large right pleural effusion present. Thoracentesis was not performed. CT chest 03/07/2019 showed a large loculated pleural effusion in the right lower lobe as well as compressive atelectasis in the lower lobe. There is ascites visualized in the upper abdomen. There is no other large focal infiltrates or opacities. There is no significant mediastinal adenopathy. There are some hypodense nodules in the left thyroid and left thyroid is enlarged. CT of abdomen and pelvis 03/07/2019 there is ascites and free fluid noted which was increased compared to the previous CT in January. There is evidence of cirrhosis and cholelithiasis present with no evidence of acute cholecystitis on imaging. There is a cystic mass in the anterior abdominal wall, which is unchanged, and splenomegaly which is also unchanged. There is no intraperitoneal air. Chest x-ray 03/08/2019 shows a right pleural effusion and right mid to lower lobe opacity suggesting effusion and atelectasis. Compared to previous x-rays from January this appears enlarged. ASSESSMENT/PLAN: Ms. Palma is a 63-year-old female with a past medical history of end stage liver disease secondary to HICKS with decompensated cirrhosis with recurrent ascites, thrombocytopenia, hepatic encephalopathy, history of GI bleed with esophageal varices, and portal hypertensive gastropathy, recurrent right pleural effusion status post talc pleurodesis, morbid obesity who presents to the ED with increased shortness of breath, cough and wheezing. The patient had recently been admitted in February with acute upper GI bleed, status post EGD and banding of her esophageal varices. She also had hepatic encephalopathy and was started on rifaximin and lactulose during that admission. The patient also had a therapeutic paracentesis during her admission, which she has been having frequently due to recurrent ascites. She presented after discharge to the ED again with shortness of breath and worsening ascites and effusion. She had another paracentesis done at that time with removal of 1.8 liters of fluid. She noticed afterwards continued shortness of breath, coughing and wheezing and she presented now and has been admitted with KENDRICK as well as increased right sided pleural effusion. The patient's recurrent effusions are likely hepatic hydrothorax secondary to her ascites. She has a failed talc pleurodesis and is continuing to have recurrent effusions secondary to the ascites. She may have superimposed infection, possibly from spontaneous bacterial peritonitis (SBP) and now with possible infected pleural effusion and PNA from SBP especially given fever on admission. The patient's KENDRICK on CKD likely hepatorenal syndrome and some intravascular volume depletion related to her recent paracentesis. She also had a lactic acidosis which was likely some component secondary to her chronic liver failure as well as secondary to the albuterol nebulizer treatment that she was given in the ED. Her acidosis has trended down with albumin and normal saline. Discussed with the patient the findings on her imaging and the suspicion for hepatic hydrothorax with possible superimposed infection given her symptoms. The patient was ordered for an ultrasound guided thoracentesis for diagnosis as well as for therapeutic relief, however she refused the procedure yesterday. We did discuss that she will likely had reaccumulation of her right pleural effusion as it is secondary to her ascites, however she may have some temporary symptomatic relief with a thoracentesis. The patient does have a history of a fear of needles and will frequently become lightheaded with her paracentesis drainage. She also, as per the daughter, had significant discomfort status post her VATS with the chest tube, which lingered even after removal of her chest tube and this is likely contributing to some of her hesitancy with the thoracentesis. Today, the patient continues to refuse a thoracentesis. Would continue with antibiotics for possible SBP as well as possible infected pleural effusion from her SBP and hepatic hydrothorax. Continue with albuterol nebulizers as needed. The patient does have some wheezing on exam and can consider prednisone, however, would not treat for a long course given her history of recent GI bleed. The patient's lactic acidosis has improved and her blood pressure appears to be at her baseline. Would discontinue the normal saline fluids and if the patient has episodes of hypotension, would consider further albumin administration. The patient's renal function has improved and her bicarbonate has also improved. Would continue to monitor ins and outs with the [place] and continue to avoid nephrotoxins and renally dosing medications. The patient's hemoglobin has trended down today. She does have a history of melena as well as recent GI bleed. The patient did have a history recently of some vomiting and diarrhea after her discharge. Would consider increasing her proton pump inhibitor (PPI) to twice a day. If there is suspicion of upper GI or variceal bleed, she may benefit from octreotide which may also be helpful with her possible hepatorenal syndrome. Would check a type and screen and continue to monitor her history and platelets. Consider transfusion if platelets less than 50 and would transfuse if hemoglobin less than 7. I had a discussion with the patient about goals of care including intubation and resuscitation. We also discussed about her prognosis with the end stage liver disease and she is being evaluated for a possible TIPS procedure, given her recurrent ascites and as well as her history of esophageal varices and portal hypertensive gastropathy. Her hepatic encephalopathy may make her a poor candidate potentially for TIPS however. The patient has also now been refusing thoracentesis and we discussed that if she is at the point where she would no longer want therapeutic thoracentesis or paracentesis, that she would be a candidate for hospice. Also spoke to the patient's daughter, Carrol, who is a healthcare proxy and had an extensive discussion with her about goals of care. There is a plan for a family meeting this afternoon at 2:30 p.m. with the patient and her family to discuss goals of care together including the possibility of hospice. JOSELUIS
--- NOTE | 2019-03-08 13:07 | IPNPDOC ---
Subjective Date Seen The patient was seen on 03/08/19. Subjective Chief Complaint/HPI Patient seen and examined at bedside. Continues to report some shortness of breath and generalized back pain which is chronic. She continues to decline a thoracentesis for alleviation of her right-sided pleural effusion. The [facility] service was consulted overnight for further evaluation. We plan on having a goals of care discussion later this afternoon. Objective Physical Examination General Exam: Positive: Alert, Cooperative, Mild Distress (2/2 SOB) ENT Exam: Positive: Atraumatic, Mucous membr. moist/pink Chest Exam: Positive: Diminished Heart Exam: Positive: Tachycardic, Normal S1, Normal S2 Telemetry: Positive: Sinus Abdomen Exam: Positive: Other (distended secondary to underlying ascites, but still soft to palpation. No tenderness to palpation); Negative: Tenderness Extremity Exam: Negative: Tenderness Psych Exam: Positive: Oriented x 3 Assessment /Plan Plan/VTE VTE Prophylaxis Ordered?: Yes Plan Shortness of Breath 2/2 Right Sided Pleural Effusion CXR, CT Chest notable for right sided pleural effusion likely 2/2 underlying Ascites U/S Guided Thoracentesis was ordered, but the patient declined this procedure We will cont to monitor and discuss goals of care KENDRICK superimposed on CKD Baseline Creatinine ~1.2 (1.92 on admission) Possibly 2/2 hepatorenal syndrome and intravascular volume depletion Diuretics held,s/p Albumin infusion and gentle IVF Hydration Serum Cr improved to 1.4 this AM End Stage Liver Disease with Cirrhosis 2/2 HICKS MELD Score 19--6% Mortality in 3 months Cont regimen as ordered Lactic Acidosis of Multifactorial Etiology Possibly 2/2 beta-adrenergic therapy given in the ER (Patient was given [id number] treatments in the ER) in the setting of liver cirrhosis Improved following Albumin infusion and gentle IVF hydration Possible Right Sided Infiltrate Sputum Culture ordered Cont Rocephin Diabetes mellitus Continue insulin regimen as ordered Chronic Hypotension Albumin ordered, Cont Midodrine The patient's B/P is improved this AM Iron deficiency anemia Continue for sulfate GERD Continue PPI Restless leg syndrome Continue ropinirole Anxiety/depression Continue amitriptyline, escitalopram DVT prophylaxis TEDs/SCD We will cont to discuss goals of care today with the patient and her daughter. Update 3:30pm: I did have an extensive conversation with the patient regarding goals of care with her daughter (and HCP) Carrol, as well as Olga's two sons present. The patient's bedside nurse Janice was also in the room for this conversation. The patient and her family are all in agreement that the patient be DNR/DNI. A MOLST form was signed, dated, and placed in the chart to reflect this. The patient states that she will attempt another thoracentesis, however if she is unable to tolerate this , and does not want to undergo further medical care she will consider comfort measures only. VS, I&O, 24H, Fishbone Vital Signs/I&O Vital Signs Date Time Temp Pulse Resp B/P (MAP) Pulse Ox O2 Delivery O2 Flow Rate FiO2 03/08/19 12:00 97.6 99 18 115/57 (76) 96 2.0 03/07/19 10:37 Room Air I&O- Last 24 Hours up to 6 AM 03/08/19 06:00 Intake Total 1150 ml Output Total 725 ml Balance 425 ml Laboratory Data 24H LABS Laboratory Tests 2 03/07/19 13:08: Lactic Acid Followup at 4 Hours 8.4*H 03/07/19 13:38: Prothrombin Time 18.6H, Prothromb Time International Ratio 1.58, Activated Partial Thromboplast Time 28.9 03/07/19 14:28: Lactic Acid Level 8.7*H 03/07/19 15:28: Anion Gap 16, Glomerular Filtration Rate 24.3L, Calcium Level 8.3L, Aspartate Amino Transf (AST/SGOT) 27, Alanine Aminotransferase (ALT/SGPT) 25, Alkaline Phosphatase 165H, Total Bilirubin 0.8, Direct Bilirubin 0.4H, Total Protein 6.0L, Albumin 2.7L, Albumin/Globulin Ratio 0.82L 03/07/19 17:30: Blood Gas Bicarbonate Standard 19.6L, Arterial Blood pH 7.456H, Arterial Blood Partial Pressure CO2 24.7L, Arterial Blood Partial Pressure O2 79.1, Arterial Blood Total CO2 17.8L, Arterial Blood HCO3 17.0L, Arterial Blood Base Excess - 5.8L, Arterial Blood Oxygen Saturation 95.3 03/07/19 18:28: Bedside Glucose (Misc Panel) 471H 03/07/19 18:57: Lactic Acid Level 6.3*H 03/07/19 21:37: Bedside Glucose (Misc Panel) 393H 03/07/19 22:50: Blood Gas Bicarbonate Standard 21.3L, Arterial Blood pH 7.482H, Arterial Blood Partial Pressure CO2 25.7L, Arterial Blood Partial Pressure O2 104.7H, Arterial Blood Total CO2 19.6L, Arterial Blood HCO3 18.8L, Arterial Blood Base Excess - 3.8L, Arterial Blood Oxygen Saturation 98.1, Anion Gap 11, Glomerular Filtration Rate 33.3L, Lactic Acid Level 4.4*H, Blood Urea Nitrogen 24H, Creatinine 1.65H, Sodium Level 139, Potassium Level 3.5, Chloride Level 107, Carbon Dioxide Level 21, Calcium Level 8.5L, B-Hydroxybutyrate 0.67 03/08/19 02:28: Bedside Glucose (Misc Panel) 282H 03/08/19 03:02: Anion Gap 8, Glomerular Filtration Rate 39.0L, Calcium Level 8.3L, Nucleated Red Blood Cells % (auto) 0.0, Lactic Acid Followup at 4 Hours 2.6*H, Magnesium Level 1.7L, Aspartate Amino Transf (AST/SGOT) 22, Alanine Aminotransferase (ALT/SGPT) 21, Alkaline Phosphatase 123H, Total Bilirubin 1.0, Direct Bilirubin 0.4H, Total Protein 6.1L, Albumin 2.8L, Albumin/Globulin Ratio 0.85L CBC/BMP Laboratory Tests 03/07/19 15:28 03/07/19 22:50 Calcium Level 8.5 L 03/08/19 03:02 Red Blood Count 2.56 L, Mean Corpuscular Volume 96.5 H, Mean Corpuscular Hemoglobin 30.5, Mean Corpuscular Hemoglobin Concent 31.6 L, Red Cell Distribution Width 16.9 H CONCHA THURMAN MD Mar 08, 2019 13:07
[2019-03-08] MEDS: cefTRIAXone SOD 1 GM in D5W MINI-BAG PLUS 50 ML IV SCH (13:21)
--- NOTE | 2019-03-08 18:07 | REP ---
Portable chest, 05:40 p.m., post thoracentesis, single AP view with the patient sitting: Comparison is 03/07/2019. The right pleural effusion has decreased in size. There is no pneumothorax. Left lung is clear. Cardiac size is unchanged. Impression: The right pleural effusion has decreased in size. There is no pneumothorax. Electronically Signed by Avelino Nam MD 03/08/2019 05:58 P
[2019-03-08 18:08] LABS: PH BODY FLUID 7.399 UNITS (NOT ESTABLISHED); SOURCE, BODY FLUID pH PLEURAL
[2019-03-08 18:34] LABS: APPEARANCE, BODY FLUID CLOUDY (CLEAR); PLEURAL FL COLOR PINK (COLORLESS); SOURCE, BODY FLUID PLEURAL
[2019-03-08 18:51] LABS: AMYLASE, BODY FLUID 10 U/L (NOT ESTABLISHED); LDH, BODY FLUID 110 U/L (NOT ESTABLISHED); SOURCE, BODY FLUID AMYLASE PLEURAL; SOURCE, BODY FLUID GLUCOSE PLEURAL; SOURCE, BODY FLUID LDH PLEURAL; SOURCE, BODY FLUID TOT PROTEIN PLEURAL; TOTAL PROTEIN, BODY FLUID 1.5 G/DL (NOT ESTABLISHED)
[2019-03-08] MEDS ORDERED: MORPHINE 4 MG/ML 1ML VIAL/SYRINGE (J2270) IV ONE (19:30)
[2019-03-08 20:08] LABS: ABG BASE EXCESS -6.1 (-2.0-2.0); ABG HCO3 18.1 MEQ/L (22.0-26.0); ABG PARTIAL PRESSURE CO2 31.3 mmHg (35.0-45.0); ABG STANDARD HCO3 19.5 MEQ/L (22.0-26.0); ABG TOTAL CO2 19.1 MEQ/L (23.0-31.0); ABG pH (ARTERIAL) 7.381 UNITS (7.350-7.450)
--- NOTE | 2019-03-08 20:30 | REP ---
Portable chest, 08:03 p.m., single AP view: Comparisons are 03/07/2019 and post thoracentesis study earlier today. There is a large right pleural effusion, however, decreased from 03/07/2019. However, I appears increased from the post thoracentesis study earlier today. This may be partially due to portable positioning. There is interstitial coarsening that has increased from the study earlier today. This may be partially due to radiographic technique, however, vascular congestion is also possible. Cardiac size is normal. Impression: The right pleural effusion has increased from the post thoracentesis study earlier today. This may be partially due to portable positioning. Possible pulmonary vascular engorgement as an interval change versus artifact from radiographic technique. Electronically Signed by Avelino Nam MD 03/08/2019 08:22 P
[2019-03-08 20:54] LABS: BASO % 0.1 % (0.0-1.0); HEMATOCRIT 28.8 % (36.0-47.0); HEMOGLOBIN 9.1 g/dl (12.0-15.5); LYMPH # 0.3 10^3/uL (1.5-4.5); LYMPH % 4.2 % (24.0-44.0); MEAN CORPUSCULAR HEMOGLOBIN 30.8 pg (27.0-33.0); MEAN CORPUSCULAR HGB CONC 31.6 g/dl (32.0-36.5); MEAN CORPUSCULAR VOLUME 97.6 fl (80.0-96.0); MONO # 0.4 10^3/uL (0.0-0.8); MONO % 6.6 % (0.0-5.0); NEUTROPHILS # 5.9 10^3/uL (1.8-7.7); NEUTROPHILS % 88.5 % (36.0-66.0); RED BLOOD COUNT 2.95 10^6/uL (4.00-5.40); WHITE BLOOD COUNT 6.7 10^3/uL (4.0-10.0)
[2019-03-08] MEDS ORDERED: FUROSEMIDE 40 MG/4 ML VIAL (J1940) IV ONE ×2 (21:00→23:30)
[2019-03-08 21:06] LABS: PLATELET COUNT, AUTOMATED 68 10^3/uL (150-450)
[2019-03-08 21:24] LABS: CALCIUM LEVEL 8.8 MG/DL (8.8-10.2); CREATININE FOR GFR 1.48 MG/DL (0.55-1.30); GLOMERULAR FILTRATION RATE 37.8 (>45); POTASSIUM SERUM 3.7 MEQ/L (3.5-5.1)
[2019-03-08 21:26] LABS: TROPONIN I 0.35 NG/ML (< 0.10)
[2019-03-08] MEDS ORDERED: VANCOMYCIN HCL 1,000 MG, VIAL MATE ADAPTER 1 EACH in D5W 250 ML IV ONE (23:30)
[2019-03-09] VITALS (28 sets, daily range): BP systolic 106–131; BP diastolic 55–92; O2SAT 95–97
[2019-03-09] MEDS: PIPERACILLIN/TAZOBACTAM SOD 3.375 GM in D5W MINI-BAG PLUS 50 ML IV SCH ×4 (01:36→18:01)
[2019-03-09 03:08] LABS: ABG BASE EXCESS -4.1 (-2.0-2.0); ABG HCO3 20.9 MEQ/L (22.0-26.0); ABG PARTIAL PRESSURE O2 137.7 mmHg (75.0-100.0); ABG STANDARD HCO3 21.1 MEQ/L (22.0-26.0); ABG TOTAL CO2 22.1 MEQ/L (23.0-31.0); ABG pH (ARTERIAL) 7.359 UNITS (7.350-7.450)
[2019-03-09 04:43] LABS: HEMATOCRIT 28.6 % (36.0-47.0); HEMOGLOBIN 8.7 g/dl (12.0-15.5); MEAN CORPUSCULAR HGB CONC 30.4 g/dl (32.0-36.5); MEAN CORPUSCULAR VOLUME 98.6 fl (80.0-96.0); WHITE BLOOD COUNT 5.1 10^3/uL (4.0-10.0)
[2019-03-09 04:46] LABS: PLATELET COUNT, AUTOMATED 63 10^3/uL (150-450)
[2019-03-09 05:02] LABS: CALCIUM LEVEL 8.5 MG/DL (8.8-10.2); CREATININE FOR GFR 1.56 MG/DL (0.55-1.30); GLOMERULAR FILTRATION RATE 35.6 (>45); POTASSIUM SERUM 4.2 MEQ/L (3.5-5.1)
[2019-03-09] MEDS: LACTULOSE 20 GM/30 ML SYRUP UD PO SCH (08:11)
[2019-03-09] MEDS: ESCITALOPRAM OXALATE 10 MG TAB (LEXAPRO) PO SCH (08:11)
[2019-03-09] MEDS: PANTOPRAZOLE 40MG TAB (PROTONIX) PO SCH (08:11)
[2019-03-09] MEDS: rifAXIMin 550 MG TAB (XIFAXAN) PO SCH ×2 (08:11→21:34)
[2019-03-09] MEDS: HumaLOG INSULIN (NovoLOG) PER UNIT SC SCH ×4 (08:11→21:00)
[2019-03-09] MEDS: FERROUS SULFATE 325MG TAB PO SCH ×2 (08:11→21:34)
[2019-03-09] MEDS: MIDODRINE 5 MG TAB PO SCH ×2 (08:12→15:12)
[2019-03-09] MEDS: LEVEMIR (INSULIN DETEMIR) 1 UNITS/0.01ML SC SCH (08:12)
[2019-03-09] MEDS: BENZONATATE 100 MG CAP PO PRN ×2 (11:06→22:51)
--- NOTE | 2019-03-09 12:45 | CCN ---
DATE: 03/09/2019 CRITICAL CARE PROGRESS The patient was seen and examined this morning during bedside rounds. Yesterday, the patient had a discussion with the hospitalist as well as with her daughter, Carrol, the healthcare proxy and her sons, and the patient at the bedside. A discussion of goals of care was performed, and the patient and her family were in agreement for DO NOT RESUSCITATE/DO NOT INTUBATE (DNR/DNI). She was agreeable for an attempt at thoracentesis; however, if she is unable to tolerate the procedure well and declines further therapeutic drainage attempts, she would consider comfort measures only at that time. She had a thoracentesis done by interventional radiology yesterday with removal of reportedly 300 mL of pleural fluid. Postprocedure, the patient had a slight decrease in her right pleural effusion. However, later on in the evening, she had complained of increasing shortness of breath, appeared more tachypneic and using accessory muscles for respiration. A repeat chest x-ray at that time showed reaccumulation of the right pleural effusion and some increased pulmonary vascular congestion and possible new left pleural effusion or infiltrate. The patient was also noted to be more hypoxic, requiring increasing amounts of oxygen. She was changed from nasal cannula onto a non-rebreather. She was transferred to the intensive care unit (ICU) for further management and placed on continuous positive airway pressure (CPAP) for her work of breathing. With the CPAP, the patient's oxygenation improved, and her shortness of breath and work of breathing also improved. The patient was also given vancomycin and broadened to Zosyn for additional broad-spectrum antibiotics. The patient was also given Lasix 40 mg IV times two for diuresis given evidence of worsening pulmonary edema on her chest x-ray and pleural effusion. She was still tachypneic but not as tachypneic as she was previously. This morning she does continue to note some shortness of breath, although improved with the CPAP. When they attempted to take it off for medications today, she desaturated and was noted to be in more respiratory distress and it was quickly placed back on. PHYSICAL EXAM: Temperature 98.6, pulse 119, respirations 25, blood pressure 122/65, oxygen saturation (O2 sat) 95% on CPAP at 50% FiO2. Intake 600 mL, output 1 liter, net negative 420 mL. General: The patient is a morbidly obese female, is lying in bed with some respiratory distress. She is using some abdominal muscles for respiration and appears tachypneic. HEENT: Normocephalic, atraumatic. Pupils are equal and reactive to light bilaterally. There are moist mucous membranes. Neck is supple. No palpable adenopathy. Unable to appreciate jugular venous distention (JVD) due to body habitus. Cardiovascular: Tachycardic, regular rate and rhythm. Normal S1, S2. Unable to appreciate any murmurs with distant heart sounds. Pulmonary: Decreased breath sounds bilaterally with some faint wheezing noted bilaterally and diminished breath sounds at the bases. Abdomen is soft, mildly distended with some tenderness in the right upper and lower quadrants. Lower extremities: There is no lower extremity edema noted bilaterally. LABORATORY DATA: WBC 5.1, hemoglobin 8.7, platelets 63. Chemistry: Sodium is 137, potassium 4.2, chloride 107, bicarbonate 23, BUN 31, creatinine 1.56, glucose is 255, lactic acid 1.7. ABG: pH 7.359, pCO2 of 38, pO2 of 137.7. ASSESSMENT AND PLAN: Ms. Palma is a 63-year-old female with a past medical history of end-stage liver disease secondary to nonalcoholic steatohepatitis (HICKS) with decompensated cirrhosis requiring recurrent paracentesis, thrombocytopenia, hepatic encephalopathy, history of gastrointestinal (GI) bleed with esophageal varices and portal hypertensive gastropathy, history of recurrent right pleural effusion - status post talc pleurodesis, morbid obesity, who presented with increased shortness of breath, cough and wheezing. The patient had had a previous admission in February for acute upper GI bleed, was status post esophagogastroduodenoscopy (EGD) and banding of her esophageal varices. During that course, she also had new hepatic encephalopathy, which was treated with rifaximin and lactulose. She had a paracentesis done during her admission and after discharge, she had presented to the emergency department (ED) and required another paracentesis due to worsening ascites and effusion. She was discharged home and presented again with increased shortness of breath, coughing and wheezing and was now noted to have new acute kidney injury (KENDRICK) on top of chronic kidney disease (CKD), as well as increase in her right-sided pleural effusion. Right pleural effusion, likely hepatic hydrothorax secondary to her ascites. Possible superimposed infection from spontaneous bacterial peritonitis (SBP) translocating into her pleural effusion. The patient initially refused a thoracentesis; however, after discussion of goals of care, the patient did have a trial thoracentesis yesterday with removal of fluid. Fluid studies were consistent with infected pleural effusion with increased WBC and is leukocyte predominant. Does not appear consistent with empyema or a complicated parapneumonic effusion. Most likely it is related to infected ascites. The patient initially had some improvement in the right-sided pleural effusion immediately post-thoracentesis; however, she had worsening shortness of breath and hypoxia and repeat chest x-ray showed reaccumulation of the fluid and some increased pulmonary vascular congestion as well as possible new left-sided effusion versus infiltrate. The patient was given Lasix with some diuresis as well as placed on a CPAP for her work of breathing and for her worsening hypoxemic respiratory failure. Will continue with CPAP for her work of breathing and for her hypoxic respiratory failure. Would continue with Lasix for diuresis. Will give 60 mg IV along with albumin to help with her diuresis. Her renal function is currently still improving, and her blood pressures have also been stable on her chronic midodrine. Continue with broad-spectrum antibiotics for possible SBP as well as infected pleural effusion. Will follow up the results of her fluid culture results, although the gram stain is negative. Will followup a procalcitonin as well to help determine de-escalation of antibiotics. The patient had a bedside ultrasound done to evaluate for ascites which may be amenable for bedside drainage for a paracentesis. She did not have any large easily accessible areas of fluid identified on the ultrasound. She did have ascites but no clear area on bedside ultrasound for a paracentesis. Will continue to monitor. If the patient appears to have increasing ascites that is amendable to drainage, would discuss with her at that time about a repeat therapeutic paracentesis. Continue with albuterol nebulizers as needed. The patient does have some wheezing on exam, which is likely due to pulmonary vascular congestion. She denies a previous history of smoking and no history of asthma or other lung disease. The patient is DNR/DNI. There have been other discussions about her goals of care, including if the patient wishes to no longer have repeated paracentesis or thoracentesis, that she would consider comfort care measures only. If patient is also having difficulty weaning from the CPAP despite medical treatment, would also consider discussion about comfort care measures and hospice. MTDD
[2019-03-09] MEDS ORDERED: ACETAMINOPHEN TAB 650MG DOSE (2X325MG) PO PRN (13:15)
[2019-03-09] MEDS: CALCIUM CARBONATE 500 MG CHEW U/D PO PRN ×2 (14:28→20:15)
[2019-03-09] MEDS ORDERED: FUROSEMIDE 100 MG/10 ML VIAL (J1940) IV ONE ×2 (16:00→22:00)
--- NOTE | 2019-03-09 16:13 | IPNPDOC ---
Subjective Date Seen The patient was seen on 03/09/19. Subjective Chief Complaint/HPI Patient seen and examined at the bedside. She was transferred to the intensive care unit and placed on CPAP therapy last night for increased work of breathing one hour after she had a thoracentesis. Repeat chest x-ray imaging revealed pleural effusions. She has been started on IV Lasix and given albumin. Unfortunately, the patient could not tolerate being off of CPAP this morning due to increased work of breathing and hypoxia. Objective Physical Examination General Exam: Positive: Alert, Cooperative, Mild Distress (on CPAP) ENT Exam: Positive: Atraumatic, Mucous membr. moist/pink Chest Exam: Positive: Diminished Heart Exam: Positive: Tachycardic, Normal S1, Normal S2 Telemetry: Positive: Sinus Abdomen Exam: Positive: Other (distended secondary to underlying ascites, but still soft to palpation. No tenderness to palpation); Negative: Tenderness Extremity Exam: Negative: Tenderness Psych Exam: Positive: Oriented x 3 Assessment /Plan Plan/VTE VTE Prophylaxis Ordered?: Yes Plan Shortness of Breath 2/2 Right Sided Pleural Effusion CXR, CT Chest notable for right sided pleural effusion likely 2/2 underlying Ascites s/p Thoracentesis on 03/08 with ~300 cc's of removal, Fluid Studies noted One hour Post operatively the patient was noted to have significant shortness of breath, and repeat chest x-ray revealed pleural effusions. The patient has been started on IV Lasix thereafter, and has also been started on CPAP for increased work of breathing. She was unfortunately not able to wean off of CPAP this morning. We will continue to try to optimize the patient's volume status, however this will be a challenge given her blood pressure, compromised renal function, and overall poor prognosis given her end-stage liver disease. We will continue to keep an open dialogue with the patient and her family regarding her progress, and goals of care KENDRICK superimposed on CKD Baseline Creatinine ~1.2 (1.92 on admission) Possibly 2/2 hepatorenal syndrome and intravascular volume depletion Serum Cr improved to 1.5 this AM End Stage Liver Disease with Cirrhosis 2/2 HICKS MELD Score 19--6% Mortality in 3 months Cont regimen as ordered Lactic Acidosis of Multifactorial Etiology Improved following Albumin infusion and gentle IVF hydration Possible Right Sided Infiltrate, SBP Broad spectrum Abx therapy ordered Procalcitonin level pending Diabetes mellitus Continue insulin regimen as ordered Chronic Hypotension Albumin ordered, Cont Midodrine Iron deficiency anemia Continue for sulfate GERD Continue PPI Restless leg syndrome Continue ropinirole Anxiety/depression Continue amitriptyline, escitalopram DVT prophylaxis TEDs/SCD Poor long-term prognosis, we will continue to try to volume optimize the patient and hope that we are able to improve her respiratory status. However, her condition remains critical and guarded. VS, I&O, 24H, Fishbone Vital Signs/I&O Vital Signs Date Time Temp Pulse Resp B/P (MAP) Pulse Ox O2 Delivery O2 Flow Rate FiO2 03/09/19 15:28 40 03/09/19 13:50 82 121/58 (79) 98 03/09/19 11:50 96.8 24 03/09/19 04:13 BIPAP/CPAP 03/09/19 00:00 15.0 I&O- Last 24 Hours up to 6 AM 03/09/19 06:00 Intake Total 490 ml Output Total 860 ml Balance -370 ml Laboratory Data 24H LABS Laboratory Tests 2 03/08/19 17:20: Body Fluid pH 7.399, Body Fluid pH Source PLEURAL, Body Fluid WBC (Auto) 3651H, Body Fluid RBC (Auto) 28, Body Fluid Mononuclear Cells % Auto 3.6H, Fluid Polymorphonuclear Cell % Auto 96.4H, Body Fluid Glucose Source PLEURAL, Body Fluid Glucose 185, Body Fluid Protein Source PLEURAL, Body Fluid Total Protein 1.5, Body Fluid LDH Source PLEURAL, Body Fluid Lactate Dehydrogenase 110, Body Fluid Amylase Source PLEURAL, Body Fluid Amylase 10, Pleural Fluid Source PLEURAL, Pleural Fluid Color PINK, Pleural Fluid Appearance CLOUDY 03/08/19 18:20: Bedside Glucose (Misc Panel) 264H 03/08/19 19:50: Blood Gas Bicarbonate Standard 19.5L, Arterial Blood pH 7.381, Arterial Blood Partial Pressure CO2 31.3L, Arterial Blood Partial Pressure O2 145.0H, Arterial Blood Total CO2 19.1L, Arterial Blood HCO3 18.1L, Arterial Blood Base Excess - 6.1L, Arterial Blood Oxygen Saturation 99.0 03/08/19 20:39: Immature Granulocyte % (Auto) 0.6, White Blood Count 6.7, Red Blood Count 2.95L, Hemoglobin 9.1L, Hematocrit 28.8L, Mean Corpuscular Volume 97.6H, Mean Corpuscular Hemoglobin 30.8, Mean Corpuscular Hemoglobin Concent 31.6L, Red Cell Distribution Width 17.2H, Platelet Count 68L, Neutrophils (%) (Auto) 88.5H, Lymphocytes (%) (Auto) 4.2L, Monocytes (%) (Auto) 6.6H, Eosinophils (%) (Auto) 0.0, Basophils (%) (Auto) 0.1, Neutrophils # (Auto) 5.9, Lymphocytes # (Auto) 0.3L, Monocytes # (Auto) 0.4, Eosinophils # (Auto) 0.0, Basophils # (Auto) 0.0, Nucleated Red Blood Cells % (auto) 0.0, Immature Platelet Fraction 8.2, Anion Gap 9, Glomerular Filtration Rate 37.8L, Lactic Acid Level 3.0*H, Blood Urea Nitrogen 28H, Creatinine 1.48H, Sodium Level 138, Potassium Level 3.7, Chloride Level 108H, Carbon Dioxide Level 21, Calcium Level 8.8, Troponin I 0.35#H, HT-Crj-G-Type Natriuretic Peptide 1028H, Procalcitonin 5.34 03/08/19 21:14: Bedside Glucose (Misc Panel) 270H 03/09/19 00:22: Methicillin-Resist S.aureus DNA PCR NOT DETECTED 03/09/19 01:18: Lactic Acid Followup at 4 Hours 1.7 03/09/19 03:03: Blood Gas Bicarbonate Standard 21.1L, Arterial Blood pH 7.359, Arterial Blood Partial Pressure CO2 38.0, Arterial Blood Partial Pressure O2 137.7H, Arterial Blood Total CO2 22.1L, Arterial Blood HCO3 20.9L, Arterial Blood Base Excess - 4.1L, Arterial Blood Oxygen Saturation 99.0 03/09/19 04:20: Nucleated Red Blood Cells % (auto) 0.0, Anion Gap 7L, Glomerular Filtration Rate 35.6L, Blood Urea Nitrogen 31H, Creatinine 1.56H, Sodium Level 137, Potassium Level 4.2, Chloride Level 107, Carbon Dioxide Level 23, Calcium Level 8.5L, Lactate Dehydrogenase 195 03/09/19 12:21: Bedside Glucose (Misc Panel) 194H CBC/BMP Laboratory Tests 03/08/19 20:39 Red Blood Count 2.95 L, Mean Corpuscular Volume 97.6 H, Mean Corpuscular Hemoglobin 30.8, Mean Corpuscular Hemoglobin Concent 31.6 L, Red Cell Distribution Width 17.2 H, Neutrophils (%) (Auto) 88.5 H, Lymphocytes (%) (Auto) 4.2 L, Monocytes (%) (Auto) 6.6 H, Eosinophils (%) (Auto) 0.0, Basophils (%) (Auto) 0.1, Neutrophils # (Auto) 5.9, Lymphocytes # (Auto) 0.3 L, Monocytes # (Auto) 0.4, Eosinophils # (Auto) 0.0, Basophils # (Auto) 0.0, Calcium Level 8.8 03/09/19 04:20 Red Blood Count 2.90 L, Mean Corpuscular Volume 98.6 H, Mean Corpuscular Hemoglobin 30.0, Mean Corpuscular Hemoglobin Concent 30.4 L, Red Cell Distribution Width 17.1 H, Calcium Level 8.5 L Microbiology Microbiology 03/09/19 Blood Culture, Received Pending 03/08/19 Acid Fast Stain, Received Pending 03/08/19 Mycobacterial Culture, Received Pending 03/08/19 Fungal Smear, Received Pending 03/08/19 Fungal Culture, Received Pending 03/08/19 Gram Stain - Final, Resulted 03/08/19 Body Fluid Culture, Resulted Pending CONCHA THURMAN MD Mar 09, 2019 16:13
[2019-03-09 20:35] LABS: CALCIUM LEVEL 8.5 MG/DL (8.8-10.2); CREATININE FOR GFR 1.44 MG/DL (0.55-1.30); POTASSIUM SERUM 3.4 MEQ/L (3.5-5.1)
[2019-03-09] MEDS ORDERED: FUROSEMIDE 100 MG/10 ML VIAL (J1940) IV SCH (21:00)
[2019-03-09] MEDS ORDERED: POTASSIUM CHLORIDE 10 MEQ SR TABLET PO ONE (22:00)
[2019-03-09] MEDS: rOPINIRole 1MG TAB PO PRN (22:44)
[2019-03-10] VITALS (18 sets, daily range): BP systolic 120–140; BP diastolic 57–66; O2SAT 86–97
[2019-03-10] MEDS: PIPERACILLIN/TAZOBACTAM SOD 3.375 GM in D5W MINI-BAG PLUS 50 ML IV SCH ×4 (00:17→19:08)
[2019-03-10] MEDS: oxyCODONE 5MG TAB PO PRN ×3 (01:46→20:55)
[2019-03-10 03:52] LABS: HEMATOCRIT 28.4 % (36.0-47.0); HEMOGLOBIN 8.7 g/dl (12.0-15.5); MEAN CORPUSCULAR HEMOGLOBIN 30.1 pg (27.0-33.0); MEAN CORPUSCULAR HGB CONC 30.6 g/dl (32.0-36.5); MEAN CORPUSCULAR VOLUME 98.3 fl (80.0-96.0); RED BLOOD COUNT 2.89 10^6/uL (4.00-5.40); WHITE BLOOD COUNT 3.5 10^3/uL (4.0-10.0)
[2019-03-10 03:53] LABS: PLATELET COUNT, AUTOMATED 70 10^3/uL (150-450)
[2019-03-10 04:12] LABS: CALCIUM LEVEL 8.7 MG/DL (8.8-10.2); CREATININE FOR GFR 1.51 MG/DL (0.55-1.30); GLOMERULAR FILTRATION RATE 36.9 (>45); POTASSIUM SERUM 3.7 MEQ/L (3.5-5.1)
[2019-03-10] MEDS: HumaLOG INSULIN (NovoLOG) PER UNIT SC SCH ×4 (07:18→20:56)
[2019-03-10] MEDS: MIDODRINE 5 MG TAB PO SCH ×2 (08:36→16:41)
[2019-03-10] MEDS: FERROUS SULFATE 325MG TAB PO SCH ×2 (08:36→20:54)
[2019-03-10] MEDS: rifAXIMin 550 MG TAB (XIFAXAN) PO SCH ×2 (08:36→20:54)
[2019-03-10] MEDS: PANTOPRAZOLE 40MG TAB (PROTONIX) PO SCH (08:36)
[2019-03-10] MEDS: ESCITALOPRAM OXALATE 10 MG TAB (LEXAPRO) PO SCH (08:37)
[2019-03-10] MEDS: LACTULOSE 20 GM/30 ML SYRUP UD PO SCH (08:37)
[2019-03-10] MEDS ORDERED: FUROSEMIDE 100 MG/10 ML VIAL (J1940) IV SCH (09:00)
[2019-03-10] MEDS: CALCIUM CARBONATE 500 MG CHEW U/D PO PRN ×2 (09:53→18:50)
[2019-03-10] MEDS: methylPREDNISolone INJ 40 MG/1 ML VIAL (J2920) IV SCH ×2 (11:38→23:21)
--- NOTE | 2019-03-10 12:08 | IPNPDOC ---
Subjective Date Seen The patient was seen on 03/10/19. Subjective Chief Complaint/HPI Patient seen and examined at bedside. States that she thinks her breathing is improving somewhat. There are plans to take her off of CPAP at some point today and monitor her respiratory status. Objective Physical Examination General Exam: Positive: Alert, Cooperative, No Acute Distress ENT Exam: Positive: Atraumatic, Mucous membr. moist/pink Chest Exam: Positive: Diminished Heart Exam: Positive: Rate Normal, Normal S1, Normal S2 Telemetry: Positive: Sinus Abdomen Exam: Positive: Other (distended secondary to underlying ascites, but still soft to palpation. No tenderness to palpation); Negative: Tenderness Extremity Exam: Negative: Tenderness Psych Exam: Positive: Oriented x 3 Assessment /Plan Plan/VTE VTE Prophylaxis Ordered?: Yes Plan Shortness of Breath 2/2 Right Sided Pleural Effusion CXR, CT Chest notable for right sided pleural effusion likely 2/2 underlying Asc ites s/p Thoracentesis on 03/08 with ~300 cc's of removal, Fluid Studies noted The patient has diuresed a net negative of about 3 L over the last 3 days with a combination of albumin and IV Lasix Her respiratory status is still guarded at best as she continues to require CPAP She has been ordered Solu-Medrol by pulmonary given her wheezing We will continue to monitor the patient and trial her off of CPAP to see how she does KENDRICK superimposed on CKD Baseline Creatinine ~1.2 (1.92 on admission) Possibly 2/2 hepatorenal syndrome and intravascular volume depletion Serum Cr has plateaued at 1.5-1.7 End Stage Liver Disease with Cirrhosis 2/2 HICKS MELD Score 19--6% Mortality in 3 months Patient's ammonia level has been within normal limits--- she remains on rifaximin and lactulose There was some consideration and scheduled outpatient follow-up regarding a TIPS procedure with interventional radiology. However, given the patient's elevated ammonia levels and general intolerance of lactulose and worsening liver disease it remains to be seen whether the patient is a candidate for a TIPS procedure. We will have to reach out to interventional radiology at some point to re- evaluate this Lactic Acidosis of Multifactorial Etiology Improved following Albumin infusion and gentle IVF hydration Possible Right Sided Infiltrate, SBP Broad spectrum Abx therapy ordered Procalcitonin level pending Diabetes mellitus Continue insulin regimen as ordered Chronic Hypotension Albumin ordered, Cont Midodrine Iron deficiency anemia Continue for sulfate GERD Continue PPI Restless leg syndrome Continue ropinirole Anxiety/depression Continue amitriptyline, escitalopram DVT prophylaxis TEDs/SCD VS, I&O, 24H, Fishbone Vital Signs/I&O Vital Signs Date Time Temp Pulse Resp B/P (MAP) Pulse Ox O2 Delivery O2 Flow Rate FiO2 03/10/19 10:22 20 03/10/19 08:15 98.4 79 136/65 (88) 97 30 03/10/19 05:10 BIPAP/CPAP 03/09/19 00:00 15.0 I&O- Last 24 Hours up to 6 AM 03/10/19 06:00 Intake Total 1090 ml Output Total 3510 ml Balance -2420 ml Laboratory Data 24H LABS Laboratory Tests 2 03/09/19 12:21: Bedside Glucose (Misc Panel) 194H 03/09/19 17:37: Bedside Glucose (Misc Panel) 95 03/09/19 19:11: Bedside Glucose (Misc Panel) 99 03/09/19 20:06: Anion Gap 6L, Glomerular Filtration Rate 39.0L, Blood Urea Nitrogen 31H, Creatinine 1.44H, Sodium Level 142, Potassium Level 3.4L, Chloride Level 110H, Carbon Dioxide Level 26, Calcium Level 8.5L 03/09/19 21:33: Bedside Glucose (Misc Panel) 76L 03/10/19 00:16: Bedside Glucose (Misc Panel) 112 03/10/19 03:39: Nucleated Red Blood Cells % (auto) 0.0, Immature Platelet Fraction 6.3, Anion Gap 6L, Glomerular Filtration Rate 36.9L, Blood Urea Nitrogen 30H, Creatinine 1.51H, Sodium Level 142, Potassium Level 3.7, Chloride Level 109H, Carbon Dioxide Level 27, Calcium Level 8.7L 03/10/19 06:14: Bedside Glucose (Misc Panel) 76L 03/10/19 07:56: Bedside Glucose (Misc Panel) 116H 03/10/19 11:05: Ammonia 27 03/10/19 11:29: Bedside Glucose (Misc Panel) 144H CBC/BMP Laboratory Tests 03/09/19 20:06 Calcium Level 8.5 L 03/10/19 03:39 Calcium Level 8.7 L, Red Blood Count 2.89 L, Mean Corpuscular Volume 98.3 H, Mean Corpuscular Hemoglobin 30.1, Mean Corpuscular Hemoglobin Concent 30.6 L, Red Cell Distribution Width 17.2 H Microbiology Microbiology 03/09/19 Blood Culture - Preliminary, Resulted No growth after 24 hours . All specim... 03/08/19 Acid Fast Stain, Received Pending 03/08/19 Mycobacterial Culture, Received Pending 03/08/19 Fungal Smear, Received Pending 03/08/19 Fungal Culture, Received Pending 03/08/19 Gram Stain - Final, Complete 03/08/19 Body Fluid Culture - Final, Complete CONCHA THURMAN MD Mar 10, 2019 12:08
[2019-03-10] MEDS ORDERED: LEVEMIR (INSULIN DETEMIR) 1 UNITS/0.01ML SC SCH (18:00)
[2019-03-10] MEDS: BENZONATATE 100 MG CAP PO PRN (20:54)
[2019-03-10] MEDS: rOPINIRole 2MG TAB PO PRN (20:54)
[2019-03-11] VITALS (11 sets, daily range): BP systolic 122–145; BP diastolic 57–74; O2SAT 91–95
[2019-03-11] MEDS: PIPERACILLIN/TAZOBACTAM SOD 3.375 GM in D5W MINI-BAG PLUS 50 ML IV SCH ×5 (00:11→23:37)
[2019-03-11 06:03] LABS: HEMOGLOBIN 8.7 g/dl (12.0-15.5); MEAN CORPUSCULAR HEMOGLOBIN 29.6 pg (27.0-33.0); MEAN CORPUSCULAR HGB CONC 31.1 g/dl (32.0-36.5); MEAN CORPUSCULAR VOLUME 95.2 fl (80.0-96.0); RED BLOOD COUNT 2.94 10^6/uL (4.00-5.40); WHITE BLOOD COUNT 2.9 10^3/uL (4.0-10.0)
[2019-03-11 06:04] LABS: PLATELET COUNT, AUTOMATED 64 10^3/uL (150-450)
[2019-03-11 06:27] LABS: CALCIUM LEVEL 8.6 MG/DL (8.8-10.2); CREATININE FOR GFR 1.7 MG/DL (0.55-1.30); GLOMERULAR FILTRATION RATE 32.2 (>45); POTASSIUM SERUM 4.5 MEQ/L (3.5-5.1)
--- NOTE | 2019-03-11 07:53 | CCN ---
DATE: 03/10/2019 Patient was seen and examined this morning during bedside rounds. Patient was given Lasix intravenous (IV) and albumin yesterday for diuresis and she did have good urine output overnight. This morning, she reports her breathing is unchanged. She continues to have some shortness of breath as well as coughing, which is occasionally productive of mucus. She has not had any fevers or chills overnight. Denies any abdominal pain. No nausea or vomiting. PHYSICAL EXAMINATION: Temperature 97.2, pulse 80, blood pressure 125/84, oxygen saturation 96% on continuous positive airway pressure (C-PAP) at the 30% FiO2. INPUT: 1 liter. OUTPUT: 2.7 liters, net negative 1.6 liters. GENERAL: Patient is a morbidly obese female, is lying in bed, is mildly tachypneic. HEENT: Normocephalic, atraumatic. Pupils are equal and reactive to light bilaterally. There are some dry mucous membranes on the C-PAP. Neck is supple. No palpable adenopathy. Unable to appreciate jugular venous distention (JVD) due to body habitus. CARDIOVASCULAR: Regular rate and rhythm. Normal S1, S2. Unable to appreciate murmurs, with a distant heart sounds. PULMONARY: Decreased breath sounds bilaterally with some faint wheezing and rhonchi noted. ABDOMEN: Soft, mildly distended, with mild tenderness in the upper and lower quadrants, but does not have significant fluid wave. LOWER EXTREMITIES: There is no lower extremity edema noted bilaterally. LABORATORY DATA: WBC 3.5, hemoglobin 8.7, platelets 70. Chemistry: Sodium is 142, potassium is 3.7, chloride is 109, bicarbonate is 27, BUN 30, creatinine 1.51, glucose is 81. ASSESSMENT AND PLAN: Ms. Palma is 63-year-old female with a history of end-stage liver disease secondary to nonalcoholic steatohepatitis (HICKS) with decompensated cirrhosis requiring recurrent paracentesis, thrombocytopenia, hepatic encephalopathy, history of gastrointestinal (GI) bleed with esophageal varices and portal hypertensive gastropathy, history of recurrent pleural effusion status post talc pleurodesis, morbid obesity who presented with increased shortness breath, cough and wheezing. Patient had a previous admission recently in the setting of an upper GI bleed. She also had a therapeutic paracentesis during that admission and after her discharge, she required another therapeutic paracentesis. She presented again with worsening shortness of breath and enlarging right pleural effusion. She was also found on this admission to have new Acute kidney injury (KENDRICK) on her chronic kidney disease (CKD). 1. Right pleural effusion. Likely hepatic hydrothorax secondary to ascites with possible superimposed bacterial infection from spontaneous bacterial peritonitis (SBP) translocating into her pleural effusion. Patient is status post thoracentesis with fluid studies consistent with an infected pleural effusion with increased WC and leukocyte predominant. Fluid studies are not consistent with empyema or a complicated parapneumonic effusion. - Patient's repeat chest x-ray showed worsening of the right sided pleural effusion after thoracentesis, as well as some increased vascular congestion and possible left-sided effusion versus infiltrate. She was given Lasix and albumin yesterday with diuresis and has been able to be off of the C-PAP more today than yesterday. - Will continue the C-PAP for her work of breathing and for her hypoxemic respiratory failure. Will continue to wean her off of the C-PAP to nasal cannula oxygen today as tolerated. - Patient will need to have monitoring for her diuresis, as her creatinine has trended up slightly today. Can consider giving her 20 mg IV Lasix, as she will need chronic diuretics, given her end-stage cirrhosis. - Patient does have recurrent ascites, as well as portal hypertensive gastropathy and could potentially benefit from a transjugular intrahepatic portosystemic shunt (TIPS) Procedure; however, she does have hepatic encephalopathy and this may make her a poor candidate. Patient was due to follow up with interventional radiology as an outpatient for evaluation for her TIPS. They will be consulted tomorrow for their input. - Continue with broad-spectrum antibiotics for possible SBP, as well as for infected pleural effusion. Her fluid studies are negative. Her procalcitonin was significantly increased at 5.34. Will continue to trend procalcitonin to help de-escalate her antibiotics. - Will continue to monitor her abdomen to see if she will have increasing ascites, which would be amendable for a repeat paracentesis. Patient does report history of a fear of needles and will usually become lightheaded and faint with her paracentesis, and she does have difficulty tolerating these procedures. She is still considering whether or not she would want further therapeutic procedures done at this time. - Patient continues to have some wheezing, was thought to be due to pulmonary vascular congestion; however, she does have some rhonchorous breath sounds as well, and she may have a component of bronchospasm. Therefore, will give her a trial of Solu-Medrol 40 mg IV twice a day and continue with albuterol nebulizers as needed. Will wean down her steroids as she is improving. - CODE STATUS: DO NOT RESUSCITATE/DO NOT INTUBATE. Will continue ongoing discussions with patient and her family about her goals of care, especially given her end-stage decompensated cirrhosis. Total critical care time spent, not including any procedures, approximately 45 minutes. Please do not hesitate to call if any further questions or concerns. PATID
[2019-03-11] MEDS ORDERED: SLF 3 ML SYR IV PRN (08:30)
[2019-03-11] MEDS: LEVEMIR (INSULIN DETEMIR) 1 UNITS/0.01ML SC SCH ×2 (08:38→21:30)
[2019-03-11] MEDS: LACTULOSE 20 GM/30 ML SYRUP UD PO SCH (08:40)
[2019-03-11] MEDS: rifAXIMin 550 MG TAB (XIFAXAN) PO SCH ×2 (08:40→20:19)
[2019-03-11] MEDS: HumaLOG INSULIN (NovoLOG) PER UNIT SC SCH ×4 (08:40→21:30)
[2019-03-11] MEDS: PANTOPRAZOLE 40MG TAB (PROTONIX) PO SCH (08:41)
[2019-03-11] MEDS: ESCITALOPRAM OXALATE 10 MG TAB (LEXAPRO) PO SCH (08:41)
[2019-03-11] MEDS: FERROUS SULFATE 325MG TAB PO SCH ×2 (08:41→20:19)
[2019-03-11] MEDS: MIDODRINE 5 MG TAB PO SCH ×2 (08:41→15:22)
--- NOTE | 2019-03-11 10:12 | IPNPDOC ---
Subjective Date Seen The patient was seen on 03/11/19. Subjective Chief Complaint/HPI Patient seen and examined at the bedside. Reports that her breathing has improved, she stayed off of BiPAP therapy for most of the day. She was t ransferred out of the ICU yesterday, and did well overnight with no acute complaints. Objective Physical Examination General Exam: Positive: Alert, Cooperative, No Acute Distress ENT Exam: Positive: Atraumatic, Mucous membr. moist/pink Chest Exam: Positive: Diminished Heart Exam: Positive: Rate Normal, Normal S1, Normal S2 Telemetry: Positive: Sinus Abdomen Exam: Positive: Other (distended secondary to underlying ascites, but still soft to palpation. No tenderness to palpation); Negative: Tenderness Extremity Exam: Negative: Tenderness Psych Exam: Positive: Oriented x 3 Assessment /Plan Plan/VTE VTE Prophylaxis Ordered?: Yes Plan Shortness of Breath 2/2 Right Sided Pleural Effusion CXR, CT Chest notable for right sided pleural effusion likely 2/2 underlying Ascites s/p Thoracentesis on 03/08 with ~300 cc's of removal, Fluid Studies noted The patient has diuresed a net negative of about 3 L over the last 4 days with a combination of albumin and IV Lasix Cont Solumedrol for wheezing, will continue to taper Patient has been placed on table top BiPAP and transferred out of the ICU and has tolerated this well We will cont to monitor her respiratory status KENDRICK superimposed on CKD Baseline Creatinine ~1.2 (1.92 on admission) Possibly 2/2 hepatorenal syndrome and intravascular volume depletion Serum Cr has plateaued at 1.5-1.7 We will order 2 additional Units of Albumin today to assess her renal function response. End Stage Liver Disease with Cirrhosis 2/2 HICKS MELD Score 19--6% Mortality in 3 months Patient's ammonia level has been within normal limits--- she remains on rifaximin and lactulose There was some consideration and scheduled outpatient follow-up regarding a TIPS procedure with interventional radiology. However, given the patient's elevated ammonia levels and general intolerance of lactulose and worsening liver disease it remains to be seen whether the patient is a candidate for a TIPS procedure. We will have to reach out to interventional radiology at some point to re- evaluate this Lactic Acidosis of Multifactorial Etiology Improved following Albumin infusion and gentle IVF hydration Possible Right Sided Infiltrate, SBP Cont zosyn Procalcitonin level noted to be elevated Diabetes mellitus Continue insulin regimen as ordered Chronic Hypotension Albumin ordered, Cont Midodrine Iron deficiency anemia Continue for sulfate GERD Continue PPI Restless leg syndrome Continue ropinirole Anxiety/depression Continue amitriptyline, escitalopram DVT prophylaxis TEDs/SCD VS, I&O, 24H, Fishbone Vital Signs/I&O Vital Signs Date Time Temp Pulse Resp B/P (MAP) Pulse Ox O2 Delivery O2 Flow Rate FiO2 03/11/19 08:00 96.8 69 17 140/69 (92) 94 03/11/19 04:00 4.0 03/11/19 01:00 BIPAP/CPAP 03/10/19 08:15 30 I&O- Last 24 Hours up to 6 AM 03/11/19 06:00 Intake Total 775 ml Output Total 975 ml Balance -200 ml Laboratory Data 24H LABS Laboratory Tests 2 03/10/19 11:05: Ammonia 27 03/10/19 11:29: Bedside Glucose (Misc Panel) 144H 03/10/19 16:31: Bedside Glucose (Misc Panel) 321H 03/10/19 19:04: Bedside Glucose (Misc Panel) 342H 03/10/19 20:41: Bedside Glucose (Misc Panel) 391H 03/11/19 05:30: Nucleated Red Blood Cells % (auto) 0.0, Immature Platelet Fraction 6.0, Anion Gap 6L, Glomerular Filtration Rate 32.2L, Blood Urea Nitrogen 39H, Creatinine 1.70H, Sodium Level 136, Potassium Level 4.5#, Chloride Level 103, Carbon Dioxide Level 27, Calcium Level 8.6L CBC/BMP Laboratory Tests 03/11/19 05:30 Red Blood Count 2.94 L, Mean Corpuscular Volume 95.2, Mean Corpuscular Hemoglobin 29.6, Mean Corpuscular Hemoglobin Concent 31.1 L, Red Cell Distribution Width 16.5 H, Calcium Level 8.6 L Microbiology Microbiology 03/09/19 Blood Culture - Preliminary, Resulted No Growth after 48 hours. All Specime... 03/08/19 Acid Fast Stain, Received Pending 03/08/19 Mycobacterial Culture, Received Pending 03/08/19 Fungal Smear, Received Pending 03/08/19 Fungal Culture, Received Pending 03/08/19 Gram Stain - Final, Complete 7/26/19 Body Fluid Culture - Final, Complete CONCHA THURMAN MD Mar 11, 2019 10:12
[2019-03-11] MEDS: methylPREDNISolone INJ 40 MG/1 ML VIAL (J2920) IV SCH ×2 (11:54→23:37)
[2019-03-11] MEDS: CALCIUM CARBONATE 500 MG CHEW U/D PO PRN (12:45)
[2019-03-11] MEDS: oxyCODONE 5MG TAB PO PRN ×2 (12:46→19:20)
[2019-03-11] MEDS: SLF 3 ML SYR IV SCH ×2 (14:44→21:31)
[2019-03-11] MEDS: IPRATROPIUM 0.5MG/ALBUTEROL 2.5MG INH SOL UD 3ML (DUONEB)(J7620) NEB PRN (14:47)
[2019-03-11] MEDS ORDERED: FUROSEMIDE 40 MG/4 ML VIAL (J1940) IV ONE (18:00)
[2019-03-11] MEDS: rOPINIRole 2MG TAB PO PRN (20:19)
[2019-03-11] MEDS: BENZONATATE 100 MG CAP PO PRN (20:20)
[2019-03-12] VITALS (26 sets, daily range): BP systolic 124–144; BP diastolic 59–70; O2SAT 90–96
[2019-03-12] MEDS: IPRATROPIUM 0.5MG/ALBUTEROL 2.5MG INH SOL UD 3ML (DUONEB)(J7620) NEB PRN ×4 (00:46→16:01)
[2019-03-12] MEDS ORDERED: FUROSEMIDE 40 MG/4 ML VIAL (J1940) IV ONE (03:45)
[2019-03-12 05:55] LABS: HEMATOCRIT 29.9 % (36.0-47.0); HEMOGLOBIN 9.2 g/dl (12.0-15.5); MEAN CORPUSCULAR HEMOGLOBIN 29.1 pg (27.0-33.0); MEAN CORPUSCULAR HGB CONC 30.8 g/dl (32.0-36.5); MEAN CORPUSCULAR VOLUME 94.6 fl (80.0-96.0); RED BLOOD COUNT 3.16 10^6/uL (4.00-5.40); WHITE BLOOD COUNT 4.8 10^3/uL (4.0-10.0)
[2019-03-12] MEDS: SLF 3 ML SYR IV SCH ×3 (05:57→21:10)
[2019-03-12] MEDS: PIPERACILLIN/TAZOBACTAM SOD 3.375 GM in D5W MINI-BAG PLUS 50 ML IV SCH ×2 (05:57→11:55)
[2019-03-12 05:59] LABS: PLATELET COUNT, AUTOMATED 68 10^3/uL (150-450)
[2019-03-12 06:15] LABS: CALCIUM LEVEL 8.8 MG/DL (8.8-10.2); CREATININE FOR GFR 1.95 MG/DL (0.55-1.30); GLOMERULAR FILTRATION RATE 27.5 (>45); POTASSIUM SERUM 3.8 MEQ/L (3.5-5.1)
[2019-03-12] MEDS: MIDODRINE 5 MG TAB PO SCH ×2 (07:41→16:37)
[2019-03-12] MEDS: LACTULOSE 20 GM/30 ML SYRUP UD PO SCH (07:41)
[2019-03-12] MEDS: ESCITALOPRAM OXALATE 10 MG TAB (LEXAPRO) PO SCH (07:42)
[2019-03-12] MEDS: oxyCODONE 5MG TAB PO PRN ×2 (07:42→21:18)
[2019-03-12] MEDS: rifAXIMin 550 MG TAB (XIFAXAN) PO SCH ×2 (07:42→21:09)
[2019-03-12] MEDS: FERROUS SULFATE 325MG TAB PO SCH ×2 (07:42→21:09)
[2019-03-12] MEDS: HumaLOG INSULIN (NovoLOG) PER UNIT SC SCH ×4 (07:43→21:10)
[2019-03-12] MEDS: LEVEMIR (INSULIN DETEMIR) 1 UNITS/0.01ML SC SCH ×2 (07:43→21:10)
[2019-03-12] MEDS: PANTOPRAZOLE 40MG TAB (PROTONIX) PO SCH (07:43)
[2019-03-12] MEDS: BENZONATATE 100 MG CAP PO PRN ×2 (07:50→18:13)
[2019-03-12] MEDS: CALCIUM CARBONATE 500 MG CHEW U/D PO PRN ×2 (07:51→18:13)
[2019-03-12] MEDS ORDERED: ALBUTEROL SULFATE 2.5 MG/0.5 ML INH NEB SOLN NEB PRN (08:45)
[2019-03-12] MEDS ORDERED: PILL CUTTER 1 EACH XX PRN ×2 (09:00→09:15)
[2019-03-12] MEDS ORDERED: LORazepam 0.5 MG TAB PO ONE (09:00)
[2019-03-12] MEDS: ONDANSETRON 4MG/2ML VIAL (J2405) IV PRN (09:24)
[2019-03-12] MEDS: methylPREDNISolone INJ 40 MG/1 ML VIAL (J2920) IV SCH (11:56)
--- NOTE | 2019-03-12 12:48 | IPNPDOC ---
Text Note Date of Service The patient was seen on 03/12/19. NOTE S:Patient seen and examined - daughter, Carrol, at bedside. Reviewed with patient and daughter events post discharge to readmission to current hospitlization. Patient states worried/anxious about paracentesis today. She did not have TIPS performed but was readmitted because of dehydration associated with diarrhea from lactulose and worsening SOB after outpatient thoracentesis in ED. She and daughter are still discussing hospice vs palliative care vs intermediate. Patient states she has decided to give up her apartment/independent living. Currently states wheezing, SOB, no CP, no abdomen pain. O: Vitals as below General: pleasant mild distress with wheezing but speaking full sentences, AAOx3, mentation clear NECK: +HJR but no JVD HRRR LCTA wtih bibas rales Abdomen distended NT NABS Ext: no ankle edema A/P: Acute hypoxic respiratory failure with Shortness of Breath 2/2 Right Sided Pleural Effusion from ascites s/p Thoracentesis on 03/08 with ~300 cc's of removal, completed 4 days with a combination of albumin and IV Lasix on Solumedrol for wheezing,and tapering. placed on table top BiPAP and transferred out of the ICU - uses mostly at night; currently on high flow 8 liter KENDRICK superimposed on CKD stage III Baseline Creatinine ~1.2 (1.92 on admission) Possibly due to intravascular volume depletion - doubt hepatorenal syndrome as creatine was improving (increased today after given 2 doses IV lasix last night) End Stage Liver Disease with Cirrhosis associated with HICKS MELD Score 19--6% Mortality in 3 months; patient and family considering hosp ice, palliative care and [place] placemet[place] Hepatic encephalopathy - NOT PRESENT DURING CURRENT ADMISSION. Patient's ammonia level has been within normal limits--- she remains on rifaximin and lactulose There was some consideration and scheduled outpatient follow-up regarding a TIPS procedure with interventional radiology. However, given the patient's elevated ammonia levels and general intolerance of lactulose and worsening liver disease it remains to be seen whether the patient is a candidate for a TIPS procedure. We will have to reach out to interventional radiology at some point to re-evaluate this Lactic Acidosis of Multifactorial Etiology Improved following Albumin infusion and gentle IVF hydration Possible Right Sided Infiltrate or possible SBP CXR images reviewed - NO SIGNS OF PNEUMONIA. Will d/c zosyn and use cefepime for possible SBP vs SBP prophylaxis (getting paracentesis today); blood culture negative. ascites fluid culture ordered. 0.25mg po ativan given for anxiety associated with paracentesis. Diabetes mellitus Continue insulin regimen as ordered Chronic Hypotension Albumin ordered, Cont Midodrine Iron deficiency anemia Continue for sulfate GERD Continue PPI Restless leg syndrome Continue ropinirole Anxiety/depression Continue amitriptyline, escitalopram DVT prophylaxis : TEDs/SCD VS,Fishbone, I+O VS, Fishbone, I+O Laboratory Tests 03/12/19 05:15 Red Blood Count 3.16 L, Mean Corpuscular Volume 94.6, Mean Corpuscular Hemoglobin 29.1, Mean Corpuscular Hemoglobin Concent 30.8 L, Red Cell Distribution Width 16.4 H, Calcium Level 8.8 Vital Signs Date Time Temp Pulse Resp B/P (MAP) Pulse Ox O2 Delivery O2 Flow Rate FiO2 03/12/19 08:35 96.9 74 19 144/67 (92) 93 9.0 03/12/19 05:00 High Flow Mask 03/10/19 08:15 30 I&O- Last 24 Hours up to 6 AM 03/12/19 06:00 Intake Total 540 ml Output Total 1400 ml Balance -860 ml NADIA HUGO DO Mar 12, 2019 12:48
[2019-03-12] MEDS: CEFEPIME HCL 1 GM in D5W MINI-BAG PLUS 50 ML IV SCH (14:43)
--- NOTE | 2019-03-12 15:53 | REP ---
Clinical: Ascites. Technique: Cardoza scale transabdominal ultrasound examination using curved array transducer. Findings: Survey images through the four quadrants of the abdomen and pelvis demonstrate small amount of left lower quadrant ascites insufficient for paracentesis. Impression: Small amount of ascites in the left lower quadrant insufficient for paracentesis. Electronically Signed by Pk Hansen MD 03/12/2019 03:45 P
--- NOTE | 2019-03-12 17:29 | REP ---
ULTRASOUND-GUIDED RIGHT THORACENTESIS The procedure was performed under the direct supervision of Dr. Cardoza. The risks and benefits of the procedure were explained to the patient and informed consent was obtained. The right pleural effusion was localized using ultrasound guidance. The skin was prepped and draped in a sterile fashion. 1% lidocaine was used as a local anesthetic. Using ultrasound guidance an 8-[place]vian multi side-hole catheter was inserted using trocar technique. 305 ml of low viscosity light red fluid was withdrawn and sent to the lab for analysis. The patient tolerated the procedure well and there were no immediate complications. After the appropriate amount of monitored convalescence the patient was discharged from the department. Reviewed by ARMANDO Barlow 03/12/2019 08:50 A Electronically Signed by Avelino Cardoza MD 03/12/2019 05:20 P
[2019-03-12] MEDS: rOPINIRole 2MG TAB PO PRN (21:37)
[2019-03-13] VITALS (11 sets, daily range): BP systolic 139–156; BP diastolic 64–83; O2SAT 86–92
[2019-03-13] MEDS: IPRATROPIUM 0.5MG/ALBUTEROL 2.5MG INH SOL UD 3ML (DUONEB)(J7620) NEB PRN ×4 (00:18→11:45)
[2019-03-13] MEDS: SLF 3 ML SYR IV SCH ×3 (05:29→20:24)
[2019-03-13 05:49] LABS: HEMATOCRIT 29.8 % (36.0-47.0); HEMOGLOBIN 9.1 g/dl (12.0-15.5); MEAN CORPUSCULAR HEMOGLOBIN 29.7 pg (27.0-33.0); MEAN CORPUSCULAR HGB CONC 30.5 g/dl (32.0-36.5); MEAN CORPUSCULAR VOLUME 97.4 fl (80.0-96.0); RED BLOOD COUNT 3.06 10^6/uL (4.00-5.40); WHITE BLOOD COUNT 4.7 10^3/uL (4.0-10.0)
[2019-03-13 05:51] LABS: PLATELET COUNT, AUTOMATED 69 10^3/uL (150-450)
[2019-03-13 06:05] LABS: ALBUMIN 2.8 GM/DL (3.2-5.2); BILIRUBIN,DIRECT 0.3 MG/DL (0.0-0.2); BILIRUBIN,TOTAL 0.6 MG/DL (0.2-1.0); CALCIUM LEVEL 8.8 MG/DL (8.8-10.2); CREATININE FOR GFR 2.19 MG/DL (0.55-1.30); TOTAL PROTEIN 7.2 GM/DL (6.4-8.2)
[2019-03-13] MEDS: HumaLOG INSULIN (NovoLOG) PER UNIT SC SCH ×4 (08:28→20:46)
[2019-03-13] MEDS: LACTULOSE 20 GM/30 ML SYRUP UD PO SCH (08:29)
[2019-03-13] MEDS: MIDODRINE 5 MG TAB PO SCH (08:29)
[2019-03-13] MEDS: PANTOPRAZOLE 40MG TAB (PROTONIX) PO SCH (08:29)
[2019-03-13] MEDS: FERROUS SULFATE 325MG TAB PO SCH ×2 (08:29→20:23)
[2019-03-13] MEDS: LEVEMIR (INSULIN DETEMIR) 1 UNITS/0.01ML SC SCH ×2 (08:29→20:47)
[2019-03-13] MEDS: rifAXIMin 550 MG TAB (XIFAXAN) PO SCH ×2 (08:29→20:21)
[2019-03-13] MEDS: ESCITALOPRAM OXALATE 10 MG TAB (LEXAPRO) PO SCH (08:29)
[2019-03-13] MEDS ORDERED: methylPREDNISolone INJ 40 MG/1 ML VIAL (J2920) IV SCH (09:00)
[2019-03-13] MEDS: ALBUTEROL SULFATE 2.5 MG/0.5 ML INH NEB SOLN NEB SCH ×4 (12:00→23:26)
[2019-03-13] MEDS ORDERED: ALPRAZolam 0.25 MG TAB PO ONE (12:30)
[2019-03-13] MEDS: guaiFENesin ER 600 MG TAB PO SCH ×2 (12:47→20:21)
--- NOTE | 2019-03-13 14:05 | IPNPDOC ---
Text Note Date of Service The patient was seen on 03/13/19. NOTE S: pateint sleeping without oxygen on (fell off while napping). Ox sat RA 87% while sleeping. She easily awakens and states history of DARIA but doesn't use CPAP Currently 4 liters 92%. She states ativan yesterday helped with SOB/Anxiety and she is relieved that they were unable to do paracentesis yesterday due to no ascites pocket. States panic attack last night but that night nurse helped her thru it for which she was grateful. Patient states had 2 loose stools today w ith lactulose. O: Vitals as below General: pleasant, obese, mild distress (abdomen muscles to breath) HRRR LCTA no audible wheeze (improved from yesterday) ; mild right rales Abdomen soft; distended NT NABS Ext: no ankle edema A/P: Acute hypoxic respiratory failure with Shortness of Breath 2/2 Right Sided Pleural Effusion from ascites s/p Thoracentesis on 03/08 with ~300 cc's of removal, completed 4 days with a combination of albumin and IV Lasix d/c solumedrol (less than 4 day treatment) was on table top BiPAP and transferred out of the ICU - oxygen levels titrating down and currently on 4 liter NC d/c atrovent and use scheduled / prn albuterol Add mucolytic KENDRICK superimposed on CKD stage III Baseline Creatinine ~1.2 (1.92 on admission) Possibly due to intravascular volume depletion - doubt hepatorenal syndrome as creatine was improving Creat increased today after IV lasix given within 36 hours d/c jane; monitor creatinine End Stage Liver Disease with Cirrhosis associated with HICKS MELD Score 19--6% Mortality in 3 months; patient and family considering hospice, palliative care and NH placement Hepatic encephalopathy - NOT PRESENT DURING CURRENT ADMISSION. Patient's ammonia level has been within normal limits--- she remains on rifaximin and lactulose There was some consideration and scheduled outpatient follow-up regarding a TIPS procedure with interventional radiology. However, given the patient's elevated ammonia levels and general intolerance of lactulose and worsening liver disease daughter states she is not candidate for a TIPS procedure. Lactic Acidosis of Multifactorial Etiology Improved following Albumin infusion and gentle IVF hydration Possible Right Sided Infiltrate (diagnosis in error) or possible SBP CXR images reviewed - NO SIGNS OF PNEUMONIA. Will d/c zosyn and use cefepime for possible SBP vs SBP prophylaxis (getting paracentesis today); blood culture negative. a repeat CXR in AM Diabetes mellitus Continue insulin regimen as ordered Chronic Hypotension Albumin ordered, Cont Midodrine Iron deficiency anemia Continue for sulfate GERD Continue PPI Restless leg syndrome Continue ropinirole Anxiety/depression Continue amitriptyline, escitalopram; prn ativan and watch for respiratory compromise. consider D/C amitriptyline. DVT prophylaxis : TEDs/SCD VS,Fishbone, I+O VS, Fishbone, I+O Laboratory Tests 03/13/19 05:13 Red Blood Count 3.06 L, Mean Corpuscular Volume 97.4 H, Mean Corpuscular Hemoglobin 29.7, Mean Corpuscular Hemoglobin Concent 30.5 L, Red Cell Distribution Width 16.6 H Vital Signs Date Time Temp Pulse Resp B/P (MAP) Pulse Ox O2 Delivery O2 Flow Rate FiO2 03/13/19 08:00 6.0 03/13/19 08:00 97.3 102 22 156/83 (107) 91 03/13/19 06:00 High Flow Mask 03/10/19 08:15 30 I&O- Last 24 Hours up to 6 AM 03/13/19 06:00 Intake Total 760 ml Output Total 1175 ml Balance -415 ml NADIA HUGO DO Mar 13, 2019 11:23
[2019-03-13] MEDS: CALCIUM CARBONATE 500 MG CHEW U/D PO PRN (14:35)
[2019-03-13] MEDS: CEFEPIME HCL 1 GM in D5W MINI-BAG PLUS 50 ML IV SCH (14:35)
[2019-03-13] MEDS: rOPINIRole 2MG TAB PO PRN (20:21)
[2019-03-13] MEDS: oxyCODONE 5MG TAB PO PRN (20:22)
[2019-03-13] MEDS: BENZONATATE 100 MG CAP PO SCH (20:23)
[2019-03-13] MEDS: ONDANSETRON 4MG/2ML VIAL (J2405) IV PRN (22:53)
[2019-03-14] VITALS (24 sets, daily range): BP systolic 108–184; BP diastolic 53–100; O2SAT 94
[2019-03-14] MEDS: ALBUTEROL SULFATE 2.5 MG/0.5 ML INH NEB SOLN NEB SCH ×5 (01:45→20:20)
[2019-03-14] MEDS ORDERED: FUROSEMIDE 20 MG/2 ML VIAL (J1940) IV ONE (02:15)
[2019-03-14] MEDS ORDERED: methylPREDNISolone INJ 125 MG/2 ML VIAL (J2930) IV ONE (02:30)
[2019-03-14] MEDS ORDERED: LORazepam 2 MG/ML VIAL (J2060) IV STA (02:54)
[2019-03-14 03:04] LABS: ABG BASE EXCESS -1.8 (-2.0-2.0); ABG O2 SATURATION 92.9 % (95.0-99.0); ABG PARTIAL PRESSURE CO2 39.4 mmHg (35.0-45.0); ABG PARTIAL PRESSURE O2 74.1 mmHg (75.0-100.0); ABG STANDARD HCO3 22.9 MEQ/L (22.0-26.0); ABG TOTAL CO2 24.3 MEQ/L (23.0-31.0); ABG pH (ARTERIAL) 7.385 UNITS (7.350-7.450)
[2019-03-14 04:00] LABS: HEMATOCRIT 29.8 % (36.0-47.0); HEMOGLOBIN 9.4 g/dl (12.0-15.5); MEAN CORPUSCULAR HEMOGLOBIN 29.9 pg (27.0-33.0); MEAN CORPUSCULAR HGB CONC 31.5 g/dl (32.0-36.5); MEAN CORPUSCULAR VOLUME 94.9 fl (80.0-96.0); PLATELET COUNT, AUTOMATED 80 10^3/uL (150-450); RED BLOOD COUNT 3.14 10^6/uL (4.00-5.40); WHITE BLOOD COUNT 6.1 10^3/uL (4.0-10.0)
--- NOTE | 2019-03-14 04:02 | REPVR ---
EXAM: XR Chest, 1 View EXAM DATE/TIME: 03/14/2019 2:47 AM CLINICAL HISTORY: 63 years old, female; Shortness of breath; Additional info: SOB TECHNIQUE: Imaging protocol: XR of the chest, 1 view. COMPARISON: CR PORTABLE CHEST X-RAY 03/08/2019 8:00 PM CR - Chest, 2 view PA, Lat 03/08/2019 5:38:47 PM FINDINGS: Lungs: There is now complete opacification of the left hemithorax which is a change from the prior exam. Right lung base opacity or elevation right diaphragm appears unchanged. Pleural space: Small right pleural effusion is without significant change. Heart/Mediastinum: The heart size cannot be accurately assessed. The trachea is approximately midline with no significant shift in the mediastinum. Bones/joints: Unremarkable. IMPRESSION: New complete opacification of the left hemithorax, probably due to a combination of pleural effusion and at least partial lung collapse, as there is no significant mediastinal shift. Electronically signed by: Ashley Mcdaniel On 03/14/2019 04:02:13 AM
[2019-03-14 04:32] LABS: CALCIUM LEVEL 9.2 MG/DL (8.8-10.2); CREATININE FOR GFR 1.94 MG/DL (0.55-1.30); GLOMERULAR FILTRATION RATE 27.7 (>45); POTASSIUM SERUM 5.2 MEQ/L (3.5-5.1)
--- NOTE | 2019-03-14 04:34 | IPNPDOC ---
Text Note Date of Service The patient was seen on 03/14/19. NOTE Increasing hypoxia overnight with increasing oxygen requirement, ABG done no h ypercarbia, hypoxia with 10 liters oxygen, moved to ICU , CXR new opacification or left hemithorax, new massive pleural effusion and possibly partial collapse of lungs also. scheduled for IR thoracocentesis. continue CPAP in oxygen bleed through 8 to 10 liters to maintain spo2 to 88 to 92 %. VS,Fishbone, I+O VS, Fishbone, I+O Laboratory Tests 03/13/19 05:13 Red Blood Count 3.06 L, Mean Corpuscular Volume 97.4 H, Mean Corpuscular Hemoglobin 29.7, Mean Corpuscular Hemoglobin Concent 30.5 L, Red Cell Distribution Width 16.6 H 03/14/19 03:54 Red Blood Count 3.14 L, Mean Corpuscular Volume 94.9, Mean Corpuscular Hemoglobin 29.9, Mean Corpuscular Hemoglobin Concent 31.5 L, Red Cell Distribution Width 16.6 H Vital Signs Date Time Temp Pulse Resp B/P (MAP) Pulse Ox O2 Delivery O2 Flow Rate FiO2 03/14/19 00:00 97.3 97 20 138/66 (90) 93 3.0 03/13/19 06:00 High Flow Mask 03/10/19 08:15 30 I&O- Last 24 Hours up to 6 AM 03/14/19 06:00 Intake Total 960 ml Output Total 300 ml Balance 660 ml RAUDEL RUDOLPH MD Mar 14, 2019 04:34
[2019-03-14] MEDS: BENZONATATE 100 MG CAP PO SCH ×3 (05:14→22:14)
[2019-03-14] MEDS: oxyCODONE 5MG TAB PO PRN ×2 (05:15→21:48)
[2019-03-14] MEDS: SLF 3 ML SYR IV SCH ×3 (05:18→22:14)
[2019-03-14] MEDS: HumaLOG INSULIN (NovoLOG) PER UNIT SC SCH ×4 (07:30→21:50)
--- NOTE | 2019-03-14 08:49 | IPNPDOC ---
Text Note Date of Service The patient was seen on 03/14/19. NOTE S: patient moved back to ICU this AM due to hypoxia. Was on cpap not table top bipap during night. CXR this AM shows left lung opacification . patient still SOB and using accessory muscles to breath. 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 Discussed with patient comfort care and hospice , and patient now wanting thoracentesis performed. She is declining pulmonary consult with Dr Tom. She failed TIPS 2 years ago. Case also discussed with Dr Parker and not a candidate for pluerdex cathetar. Patient wants to proceed with thoracentesis. O: Vitals as below General: moderate to severe respiratory distress, using accessory abdomen muscles to breath HRRR Lungs - rales at right base, no air movement on left Abdomen: soft NT mild distended, NABS A//P: Acute hypoxic respiratory failure with Shortness of Breath 2/2 Right Sided Pleural Effusion from ascites s/p Thoracentesis on 03/08 with ~300 cc's of removal, completed 4 days with a combination of albumin and IV Lasix Solumedrol given this AM and will taper dose continue scheduled nebs, guiafensen; Thorcentesis today KENDRICK superimposed on CKD stage III Baseline Creatinine ~1.2 (1.92 on admission) Possibly due to intravascular volume depletion - doubt hepatorenal syndrome as creatine was improving Creat increased after IV lasix given and is now starting to trend down 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 She does not want hospice or comfort care at this time. Hepatic encephalopathy - NOT PRESENT DURING CURRENT ADMISSION. Patient's ammonia level has been within normal limits--- she remains on rifaximin and lactulose There was some consideration and scheduled outpatient follow-up regarding a TIPS procedure with interventional radiology. However, given the patient's elevated ammonia levels and general intolerance of lactulose and worsening liver disease daughter states she is not candidate for a TIPS procedure. Lactic Acidosis of Multifactorial Etiology Improved following Albumin infusion and gentle IVF hydration Possible Right Sided Infiltrate (diagnosis in error) or possible SBP CXR images reviewed - NO SIGNS OF PNEUMONIA. Will d/c zosyn and use cefepime for possible SBP vs SBP prophylaxis (getting paracentesis today); blood culture negative. a repeat CXR in AM Diabetes mellitus Continue insulin regimen as ordered Chronic Hypotension Albumin ordered, Cont Midodrine Iron deficiency anemia Continue for sulfate GERD Continue PPI Restless leg syndrome Continue ropinirole Anxiety/depression Continue amitriptyline, escitalopram; prn ativan and watch for respiratory compromise. consider D/C amitriptyline. DVT prophylaxis : TEDs/SCD Current Medications Medications (Trade) Dose Ordered Sig/Sung Route PRN Reason Start Time Stop Time Status Last Admin Dose Admin Acetaminophen (Tylenol Tab) 650 mg Q6HP PRN PO PAIN / FEVER 03/09/19 13:15 03/10/19 01:27 DC 03/09/19 14:28 Albuterol Sulfate (Proventil Neb) 2.5 mg RQ4H NEB 03/13/19 12:00 03/14/19 07:32 Albuterol Sulfate (Proventil Neb) 2.5 mg RQ4H PRN NEB wheeze 03/12/19 08:45 03/12/19 10:12 DC Albuterol/ Ipratropium (Duoneb (Ipr 0.5mg/Alb 2.5mg)) 3 ml Q20M PRN NEB SHORTNESS OF BREATH 03/07/19 08:30 03/07/19 09:48 DC 03/07/19 09:47 Albuterol/ Ipratropium (Duoneb (Ipr 0.5mg/Alb 2.5mg)) 3 ml Q2HP PRN NEB SOB/WHEEZING 03/07/19 22:45 03/13/19 11:25 DC 03/13/19 11:45 Amitriptyline HCl (Elavil) 10 mg QHS PRN PO INSOMNIA 03/07/19 12:00 Benzonatate (Tessalon Perles) 100 mg Q8H PO 03/13/19 22:00 03/14/19 05:14 Benzonatate (Tessalon Perles) 100 mg TIDP PRN PO COUGH 03/08/19 02:30 03/13/19 18:34 DC 03/12/19 18:13 Calcium Carbonate (Tums) 1,000 mg Q4HP PRN PO HEARTBURN 03/09/19 10:45 03/13/19 14:35 Cefepime HCl 1 gm/ Dextrose 50 ml @ 100 mls/hr Q24H IV 03/12/19 14:00 03/13/19 14:35 Ceftriaxone Sodium 1 gm/ Dextrose 50 ml @ 100 mls/hr Q24H IV 03/07/19 12:00 03/08/19 23:22 DC 03/08/19 13:21 Dextrose (Dextrose 50%) 25 ml ASDIRECTED PRN IV SEE LABEL COMMENTS 03/07/19 12:00 Escitalopram Oxalate (Lexapro) 20 mg DAILY PO 03/07/19 09:00 03/13/19 08:29 Ferrous Sulfate (Ferrous Sulfate) 325 mg BID PO 03/07/19 09:00 03/13/19 20:23 Furosemide (LASIX injection) 60 mg BID IV 03/09/19 21:00 03/09/19 21:00 DC Furosemide (LASIX injection) 60 mg BID IV 03/10/19 09:00 03/10/19 09:00 DC Glucagon (Glucagon) 1 mg ASDIRECTED PRN SC SEE LABEL COMMENTS 03/07/19 12:00 Glucose (Glucose) 16 GM ASDIRECTED PRN PO SEE LABEL COMMENTS 03/07/19 12:00 Guaifenesin (Mucinex Tab Er) 1,200 mg BID PO 03/13/19 09:00 03/13/19 20:21 Home Med (Med Rec Complete!) ASDIRECTED XX 03/07/19 11:15 03/07/19 11:15 DC Insulin Detemir (Levemir Insulin) 40 units BID SC 03/07/19 09:00 03/07/19 18:58 DC 03/07/19 12:50 Insulin Detemir (Levemir Insulin) 40 units BID SC 03/10/19 18:00 03/11/19 07:12 DC 03/10/19 19:08 Insulin Detemir (Levemir Insulin) 80 units BID SC 03/07/19 21:00 03/10/19 17:32 DC 03/09/19 08:12 Insulin Detemir (Levemir Insulin) 80 units BID SC 03/11/19 09:00 03/14/19 03:41 DC 03/13/19 20:47 Insulin Detemir (Levemir Insulin) 90 units BID SC 03/14/19 09:00 Insulin Human Lispro (HumaLOG INSULIN) 30 units STAT STAT SC 03/07/19 18:55 03/07/19 18:58 DC 03/07/19 19:51 Insulin Human Lispro (HumaLOG INSULIN) SEE PROTOCOL TABLE AC SC 03/07/19 12:00 03/13/19 18:49 Insulin Human Lispro (HumaLOG INSULIN) SEE PROTOCOL TABLE QHS SC 03/07/19 21:00 03/13/19 20:46 Lactulose (Cephulac) 15 ml DAILY PO 03/07/19 09:00 03/13/19 08:29 Lorazepam (Ativan) 0.25 mg STAT STAT IV 03/14/19 02:54 03/14/19 02:56 DC 03/14/19 03:36 Methylprednisolone (SOLU medrol) 40 mg DAILY IV 03/13/19 09:00 03/13/19 09:00 DC 03/13/19 08:27 Methylprednisolone (SOLU medrol) 40 mg Q12H IV 03/10/19 11:00 03/12/19 12:54 DC 03/12/19 11:56 Midodrine (Proamatine) 5 mg BID@0800,1600 PO 03/07/19 16:00 03/13/19 08:46 DC 03/13/19 08:29 Ondansetron HCl (ZOFRAN INJection) 4 mg Q6HP PRN IV NAUSEA OR VOMITING 03/10/19 06:15 03/13/19 22:53 Oxycodone HCl (Roxicodone, Oxyir) 5 mg Q8HP PRN PO PAIN 03/10/19 01:30 03/14/19 05:15 Pantoprazole Sodium (Protonix) 40 mg DAILY PO 03/07/19 09:00 03/13/19 08:29 Piperacillin Sod/ Tazobactam Sod 3.375 gm/Dextrose 50 ml @ 50 mls/hr Q6H IV 03/09/19 00:00 03/12/19 12:54 DC 03/12/19 11:55 Rifaximin (Xifaxan) 550 mg BID PO 03/07/19 09:00 03/13/19 20:21 Ropinirole HCl (Requip) 2 mg BID PRN PO RESTLESSNESS 03/07/19 12:00 03/10/19 17:55 DC 03/09/19 22:44 Ropinirole HCl (Requip) 2 mg BID PRN PO RESTLESSNESS 03/10/19 18:00 03/13/19 20:21 Sodium Chloride 750 ml @ 50 mls/hr Q15H IV 03/07/19 19:00 03/07/19 22:43 DC 03/07/19 19:54 Sodium Chloride (Saline Lock Flush) 2 ml ASDIRECTED PRN IV SEE LABEL COMMENTS 03/11/19 08:30 Sodium Chloride (Saline Lock Flush) 2 ml SLF IV 03/11/19 14:00 03/14/19 05:18 VS,Fishbone, I+O VS, Fishbone, I+O Laboratory Tests 03/14/19 03:54 Red Blood Count 3.14 L, Mean Corpuscular Volume 94.9, Mean Corpuscular Hemoglobin 29.9, Mean Corpuscular Hemoglobin Concent 31.5 L, Red Cell Distribution Width 16.6 H, Calcium Level 9.2 Vital Signs Date Time Temp Pulse Resp B/P (MAP) Pulse Ox O2 Delivery O2 Flow Rate FiO2 03/14/19 06:27 90 20 115/59 (77) 92 10.0 03/14/19 04:01 97.5 03/13/19 06:00 High Flow Mask 03/10/19 08:15 30 I&O- Last 24 Hours up to 6 AM 03/14/19 05:59 Intake Total 1080 ml Output Total 350 ml Balance 730 ml NADIA HUGO DO Mar 14, 2019 08:05
[2019-03-14] MEDS: LEVEMIR (INSULIN DETEMIR) 1 UNITS/0.01ML SC SCH (09:00)
[2019-03-14] MEDS: PANTOPRAZOLE 40MG TAB (PROTONIX) PO SCH (09:00)
[2019-03-14] MEDS: BUDESONIDE 0.5 MG/2 ML INHALATION SUSPENSION INH SCH ×2 (09:00→20:20)
[2019-03-14] MEDS: ESCITALOPRAM OXALATE 10 MG TAB (LEXAPRO) PO SCH (09:00)
[2019-03-14] MEDS: LACTULOSE 20 GM/30 ML SYRUP UD PO SCH (09:00)
[2019-03-14] MEDS: FERROUS SULFATE 325MG TAB PO SCH ×2 (09:00→21:46)
[2019-03-14] MEDS: rifAXIMin 550 MG TAB (XIFAXAN) PO SCH ×2 (09:00→21:46)
[2019-03-14] MEDS: guaiFENesin ER 600 MG TAB PO SCH ×2 (09:00→21:45)
--- NOTE | 2019-03-14 11:53 | REP ---
Left thoracic ultrasound: History: Question quantity of pleural fluid. For consideration of thoracentesis. Findings: Sonographic survey scanning of the left chest demonstrates a large amount of left pleural effusion. Electronically Signed by Lonny Fu MD 03/14/2019 11:44 A
[2019-03-14] MEDS: SPIRONOLACTONE 25 MG TAB PO SCH ×2 (13:07→16:58)
[2019-03-14] MEDS: CEFEPIME HCL 1 GM in D5W MINI-BAG PLUS 50 ML IV SCH (15:30)
--- NOTE | 2019-03-14 16:50 | REP ---
September a 5 o'clock The portable chest, 04:27 p.m., single AP view with the patient sitting: Comparison is from 02:43 a.m. earlier today. Complete opacification of the left hemithorax is again identified except for a small portion of aerated lung in the left upper lobe. This is a change from the study earlier today where there was complete opacification of the left hemithorax. The right costophrenic angle is effaced, as previously, compatible with right pleural effusion, unchanged. The remainder of the right lung is clear. Cardiac margins are obscured in cardiac size cannot be determined. Respirator tubing is superimposed. Impression: There is a small portion of aerated left upper lobe. The remainder of the left hemithorax is completely opacified. Electronically Signed by Avelino Nam MD 03/14/2019 04:41 P
[2019-03-14 17:05] LABS: PH BODY FLUID 7.598 UNITS (NOT ESTABLISHED); SOURCE, BODY FLUID pH PLEURAL
--- NOTE | 2019-03-14 17:07 | REP ---
ULTRASOUND GUIDED LEFT THORACENTESIS The procedure was performed under the direct supervision of Dr. Fu. The risks and benefits of the procedure were explained to the patient and informed consent was obtained. The procedure was performed in the ICU at the bedside. The left pleural effusion was localized using ultrasound guidance. The skin was prepped and draped in a sterile fashion. 1% lidocaine was used as a local anesthetic. An 8-Ukrainian multi side-hole catheter was inserted using trocar technique. 235 ml of aleksander colored fluid was withdrawn and discarded. The patient tolerated the procedure well and there were no immediate complications. Reviewed by ARMANDO Barlow 03/14/2019 04:30 P Electronically Signed by Lonny Fu MD 03/14/2019 04:58 P
[2019-03-14 17:30] LABS: AMYLASE, BODY FLUID 8 U/L (NOT ESTABLISHED); LDH, BODY FLUID 72 U/L (NOT ESTABLISHED); SOURCE, BODY FLUID ALBUMIN PLEURAL; SOURCE, BODY FLUID AMYLASE PLEURAL; SOURCE, BODY FLUID GLUCOSE PLEURAL; SOURCE, BODY FLUID LDH PLEURAL; SOURCE, BODY FLUID TOT PROTEIN PLEURAL; TOTAL PROTEIN, BODY FLUID 1.1 G/DL (NOT ESTABLISHED)
--- NOTE | 2019-03-14 17:56 | IPNPDOC ---
Text Note Date of Service The patient was seen on 03/14/19. NOTE Advance care planning [id number] Daughter and patient present. Discussed with them that maximum medical interventions have been done including thoracentesis (less than 300cc out), paracentesis, CPAP (patient refusing pulmonary consult and therefore can not use bipap). Discussed minimal improvement to chest xray. Discussed that prognosis is poor. Advised her that her current condition will not improve and that she will not be able to go home, and not be a rehab candidate. Discussed hospice, comfort care and shelter facility. Discussed that hospice has been the recommendations of Dr Resendiz, Dr Parker, Dr Larson, myself and Dr Boothe - all whom have been involved in her care at one time or another. Patient is coming to terms with her endstage illness. Daughter in agreement with hospice. patient needs to process and think about it still. Patient is aware that if episode of respiratory distress occurs again tonight, the best we can do for her is CPAP an d morphine or ativan to help with airhunger and relax breathing. VS,Fishbone, I+O VS, Fishbone, I+O Laboratory Tests 03/14/19 03:54 Red Blood Count 3.14 L, Mean Corpuscular Volume 94.9, Mean Corpuscular Hemoglobin 29.9, Mean Corpuscular Hemoglobin Concent 31.5 L, Red Cell Distribution Width 16.6 H, Calcium Level 9.2 Vital Signs Date Time Temp Pulse Resp B/P (MAP) Pulse Ox O2 Delivery O2 Flow Rate FiO2 03/14/19 17:28 85 124/60 (81) 93 8.0 03/14/19 16:07 97.1 20 03/13/19 06:00 High Flow Mask 03/10/19 08:15 30 I&O- Last 24 Hours up to 6 AM 03/14/19 06:00 Intake Total 1020 ml Output Total 300 ml Balance 720 ml NADIA HUGO DO Mar 14, 2019 17:56
[2019-03-14] MEDS ORDERED: LEVEMIR (INSULIN DETEMIR) 1 UNITS/0.01ML SC ONE (21:00)
[2019-03-14] MEDS: rOPINIRole 2MG TAB PO PRN (22:18)
[2019-03-14] MEDS: CALCIUM CARBONATE 500 MG CHEW U/D PO PRN (23:55)
[2019-03-15] VITALS (14 sets, daily range): BP systolic 127–161; BP diastolic 60–91; O2SAT 96–99
[2019-03-15] MEDS: ALBUTEROL SULFATE 2.5 MG/0.5 ML INH NEB SOLN NEB SCH ×7 (00:29→23:13)
[2019-03-15 03:49] LABS: HEMATOCRIT 32.2 % (36.0-47.0); HEMOGLOBIN 9.9 g/dl (12.0-15.5); MEAN CORPUSCULAR HEMOGLOBIN 29.9 pg (27.0-33.0); MEAN CORPUSCULAR HGB CONC 30.7 g/dl (32.0-36.5); MEAN CORPUSCULAR VOLUME 97.3 fl (80.0-96.0); RED BLOOD COUNT 3.31 10^6/uL (4.00-5.40); WHITE BLOOD COUNT 5.1 10^3/uL (4.0-10.0)
[2019-03-15 03:51] LABS: PLATELET COUNT, AUTOMATED 94 10^3/uL (150-450)
[2019-03-15 04:17] LABS: BILIRUBIN,TOTAL 0.7 MG/DL (0.2-1.0); CALCIUM LEVEL 8.9 MG/DL (8.8-10.2); CREATININE FOR GFR 1.9 MG/DL (0.55-1.30); GLOMERULAR FILTRATION RATE 28.3 (>45); POTASSIUM SERUM 4.3 MEQ/L (3.5-5.1); TOTAL PROTEIN 7.5 GM/DL (6.4-8.2)
[2019-03-15] MEDS ORDERED: HumaLOG INSULIN (NovoLOG) PER UNIT SC ONE (04:45)
[2019-03-15] MEDS: SLF 3 ML SYR IV SCH ×3 (05:48→22:00)
[2019-03-15] MEDS: BENZONATATE 100 MG CAP PO SCH ×3 (05:48→23:01)
[2019-03-15] MEDS: HumaLOG INSULIN (NovoLOG) PER UNIT SC SCH ×4 (07:36→20:46)
[2019-03-15] MEDS: BUDESONIDE 0.5 MG/2 ML INHALATION SUSPENSION INH SCH ×2 (07:48→20:15)
--- NOTE | 2019-03-15 08:23 | REP ---
Clinical: Shortness of breath. Comparison: 03/14/2019 Findings: Complete opacification of the left hemithorax suggests a large effusion and underlying atelectasis/collapse. The right hemithorax is relatively clear/stable. Cardiac silhouette and mediastinum are incompletely evaluated. Skeletal structures are intact. Impression: Complete opacification of the left hemithorax consistent with large effusion and underlying atelectasis/collapse. Electronically Signed by Pk Hansen MD 03/15/2019 08:15 A
[2019-03-15] MEDS: LACTULOSE 20 GM/30 ML SYRUP UD PO SCH (09:00)
[2019-03-15] MEDS: FERROUS SULFATE 325MG TAB PO SCH ×2 (09:13→20:44)
[2019-03-15] MEDS: guaiFENesin ER 600 MG TAB PO SCH ×2 (09:13→20:46)
[2019-03-15] MEDS: PANTOPRAZOLE 40MG TAB (PROTONIX) PO SCH (09:13)
[2019-03-15] MEDS: rifAXIMin 550 MG TAB (XIFAXAN) PO SCH ×2 (09:13→20:42)
[2019-03-15] MEDS: SPIRONOLACTONE 25 MG TAB PO SCH ×2 (09:14→17:48)
[2019-03-15] MEDS: ESCITALOPRAM OXALATE 10 MG TAB (LEXAPRO) PO SCH (09:14)
[2019-03-15] MEDS: predniSONE 20 MG TAB PO SCH (09:14)
[2019-03-15] MEDS: oxyCODONE 5MG TAB PO PRN ×2 (09:14→20:45)
[2019-03-15] MEDS: CALCIUM CARBONATE 500 MG CHEW U/D PO PRN ×2 (09:21→23:01)
--- NOTE | 2019-03-15 11:23 | IPNPDOC ---
Text Note Date of Service The patient was seen on 03/15/19. NOTE S: patient states had restless night but no panic episodes. She feels her breathing is easier. no CP, no N, noV. She and daughter are interested in talking with hospice to see what they have to offer. O: Vitals as below General: AAOx3, NAD on 8 liter highflow HRRR no murmur LCTA on right with rales, diminished BS on left with minimal air movement Ext: no edema A/P: Acute hypoxic respiratory failure with Shortness of Breath 2/2 Right Sided Pleural Effusion from ascites and left white out (mucus plug with hydrothorax suspected) s/p Thoracentesis on 03/08 with ~300 cc's of removal, completed 4 days with a combination of albumin and IV Lasix Solumedrol given this AM and will taper dose continue scheduled nebs, guiafensen; IS/PEP, steroid taper Patienr refusing pulm consult. Case discussed with Dr Gordillo will see patient /daughter present to see if she may benefit from pleurx KENDRICK superimposed on CKD stage III Baseline Creatinine ~1.2 (1.92 on admission) Possibly due to intravascular volume depletion - doubt hepatorenal syndrome as creatine was improving Creat increased after IV lasix given and is now starting to trend down End Stage Liver Disease with Cirrhosis associated with HICKS MELD Score 19--6% Mortality in 3 months; patient and family considering hospice, palliative care and NH placement; patient is aware she will not return home. She does not want hospice or comfort care at this time. Case discussed with Dr Gordillo will see patient /daughter present to see if she may benefit from pleurx paracentesis cathetar for palliative treatment , if she chooses hospice (it can then be drained daily to offer comfort and to avoid recurrent right hydrothorax) Hepatic encephalopathy - NOT PRESENT DURING CURRENT ADMISSION. - RESOLVED Patient's ammonia level has been within normal limits--- she remains on rifaximin and lactulose There was some consideration and scheduled outpatient follow-up regarding a TIPS procedure with interventional radiology. However, given the patient's general intolerance of lactulose and worsening liver disease daughter states she is not candidate for a TIPS procedure.Case discussed with Dr Gordillo will see patient /daughter present to see if she may benefit from pleurx Lactic Acidosis of Multifactorial Etiology - RESOLVED Improved following Albumin infusion and gentle IVF hydration Possible Right Sided Infiltrate (diagnosis in error) or possible SBP CXR images reviewed - NO SIGNS OF PNEUMONIA. Will d/c zosyn and use cefepime for possible SBP vs SBP prophylaxis (getting paracentesis today); blood culture negative. a repeat CXR in AM Diabetes mellitus Continue insulin regimen as ordered Chronic Hypotension Albumin ordered, Cont Midodrine Iron deficiency anemia Continue for sulfate GERD Continue PPI Restless leg syndrome Continue ropinirole Anxiety/depression Continue amitriptyline, escitalopram; prn ativan and watch for respiratory compromise. consider D/C amitriptyline. DVT prophylaxis : TEDs/SCD Disposition: hospice consulted for family discussion. Patient is unable to return from home. She is no longer a rehab candidate given her worsening health and underlying poor prognosis. VS,Fishbone, I+O VS, Fishbone, I+O Laboratory Tests 03/15/19 03:37 Red Blood Count 3.31 L, Mean Corpuscular Volume 97.3 H, Mean Corpuscular Hemoglobin 29.9, Mean Corpuscular Hemoglobin Concent 30.7 L, Red Cell Distribution Width 16.5 H, Calcium Level 8.9, Aspartate Amino Transf (AST/SGOT) 25, Alanine Aminotransferase (ALT/SGPT) 41, Alkaline Phosphatase 229 H, Total Bilirubin 0.7, Total Protein 7.5, Albumin 3.0 L Vital Signs Date Time Temp Pulse Resp B/P (MAP) Pulse Ox O2 Delivery O2 Flow Rate FiO2 03/15/19 09:14 26 94 03/15/19 08:00 97.4 91 155/69 (97) 10.0 03/15/19 04:51 BIPAP/CPAP 03/10/19 08:15 30 I&O- Last 24 Hours up to 6 AM 03/15/19 06:00 Intake Total 600 ml Output Total 1535 ml Balance -935 ml NADIA HUGO DO Mar 15, 2019 11:23
[2019-03-15] MEDS: LORazepam 2 MG/ML VIAL (J2060) IV PRN ×2 (14:15→23:02)
[2019-03-15] MEDS: CEFEPIME HCL 1 GM in D5W MINI-BAG PLUS 50 ML IV SCH (14:16)
[2019-03-15] MEDS: rOPINIRole 2MG TAB PO PRN (20:44)
[2019-03-15] MEDS: LEVEMIR (INSULIN DETEMIR) 1 UNITS/0.01ML SC SCH (20:47)
[2019-03-16] VITALS (9 sets, daily range): BP systolic 136–178; BP diastolic 65–77; O2SAT 92
[2019-03-16] MEDS: ALBUTEROL SULFATE 2.5 MG/0.5 ML INH NEB SOLN NEB SCH ×6 (04:01→23:06)
[2019-03-16] MEDS: BENZONATATE 100 MG CAP PO SCH ×3 (06:05→21:22)
[2019-03-16] MEDS: SLF 3 ML SYR IV SCH ×3 (06:08→21:27)
[2019-03-16] MEDS: BUDESONIDE 0.5 MG/2 ML INHALATION SUSPENSION INH SCH ×2 (07:02→20:39)
--- NOTE | 2019-03-16 08:31 | REP ---
Clinical: Pleural effusion. Comparison: 03/15/2019. Findings: Complete opacification of the left hemithorax unchanged. Right hemithorax is relatively clear and well aerated. Mediastinum and cardiac silhouette are incompletely evaluated due to overlying opacity. Skeletal structures are stable. Impression: No change from prior examination. Electronically Signed by Pk Hansen MD 03/16/2019 08:23 A
[2019-03-16] MEDS: HumaLOG INSULIN (NovoLOG) PER UNIT SC SCH ×4 (08:32→21:23)
[2019-03-16] MEDS: LACTULOSE 20 GM/30 ML SYRUP UD PO SCH (09:00)
[2019-03-16] MEDS: SPIRONOLACTONE 25 MG TAB PO SCH ×2 (09:40→16:19)
[2019-03-16] MEDS: ESCITALOPRAM OXALATE 10 MG TAB (LEXAPRO) PO SCH (09:41)
[2019-03-16] MEDS: predniSONE 20 MG TAB PO SCH (09:44)
[2019-03-16] MEDS: FERROUS SULFATE 325MG TAB PO SCH ×2 (09:45→21:21)
[2019-03-16] MEDS: PANTOPRAZOLE 40MG TAB (PROTONIX) PO SCH (09:45)
[2019-03-16] MEDS: rifAXIMin 550 MG TAB (XIFAXAN) PO SCH ×2 (09:47→21:22)
[2019-03-16] MEDS: guaiFENesin ER 600 MG TAB PO SCH ×2 (09:47→21:21)
[2019-03-16] MEDS: oxyCODONE 5MG TAB PO PRN ×2 (10:13→21:23)
[2019-03-16] MEDS: LEVEMIR (INSULIN DETEMIR) 1 UNITS/0.01ML SC SCH ×2 (10:20→21:24)
[2019-03-16] MEDS: CALCIUM CARBONATE 500 MG CHEW U/D PO PRN (10:49)
[2019-03-16] MEDS: CEFEPIME HCL 1 GM in D5W MINI-BAG PLUS 50 ML IV SCH (14:02)
--- NOTE | 2019-03-16 15:38 | IPNPDOC ---
Text Note Date of Service The patient was seen on 03/16/19. NOTE S: Patient states she had a "rough night" last night but doesn't remember much. Per nursing staff, she had SOB and was given ativan and oxycodone, had some hallucinations and then rested easily on the CPAP for 6 hours. patient has not used amitryptline for insomnia (home med) since admission. Daughter spoke with hospice yesterday and visited hospice house, brought pictures back for patient. Patient states she first wants to get better before deciding on hospice. Daughter discussed with patient that she is not able to go home and is not getting better. Patient is still having difficulty understanding or coming to terms with her endstage medical disease. O: Vitals as below General: tired, falling asleep during conversation but with verbal stimuli immediately wakes up. SHe is able to follow simple and complex commands and demonstrates use of IS/PEP HRRR LCTA posterior with rales on right, minimal air movement posterior on left; no audible airmovement anteriorly on left, no wheeze, no rhonchi Abdomen obese, soft NT ND, Ext: no edema A/P: Acute hypoxic respiratory failure with Shortness of Breath 2/2 Right Sided Pleural Effusion from ascites and left white out (mucus plug with hydrothorax suspected) s/p Thoracentesis on 03/08 with ~300 cc's of removal, completed 4 days with a combination of albumin and IV Lasix continue scheduled nebs, guiafensen; IS/PEP, steroid taper Patient refusing pulm consult. Case discussed with Dr Gordillo will see patient /daughter present to see if she may benefit from pleurx if on hospice for bedside draining KENDRICK superimposed on CKD stage III Baseline Creatinine ~1.2 (1.92 on admission) Possibly due to intravascular volume depletion - doubt hepatorenal syndrome as creatine was improving Creat increased after IV lasix given and is now starting to trend down - check BMP in AM End Stage Liver Disease with Cirrhosis associated with HICKS MELD Score 19--6% Mortality in 3 months; patient and family considering hospice, palliative care and NH placement; patient is aware she will not return home. She does not want hospice or comfort care at this time. Case discussed with Dr Gordillo will see patient /daughter present to see if she may benefit from pleurx paracentesis cathetar for palliative treatment , if she chooses hospice (it can then be drained daily to offer comfort and to avoid recurrent right hydrothorax) Hepatic encephalopathy - NOT PRESENT DURING CURRENT ADMISSION. - RESOLVED Patient's ammonia level has been within normal limits--- she remains on rifaximin and lactulose There was some consideration and scheduled outpatient follow-up regarding a TIPS procedure with interventional radiology. However, given the patient's general intolerance of lactulose and worsening liver disease daughter states she is not candidate for a TIPS procedure.Case discussed with Dr Gordillo will see patient /daughter present to see if she may benefit from pleurx Lactic Acidosis of Multifactorial Etiology - RESOLVED Improved following Albumin infusion and gentle IVF hydration Diabetes mellitus Continue insulin regimen as ordered Chronic Hypotension - RESOLVED with IV albumin and midodrine. hold orders for midodrine placed. Iron deficiency anemia - continue iron replacement GERD - Continue PPI Restless leg syndrome - Continue ropinirole Anxiety/depression - patient has not used amitryptline since admission, will reorder; continue with lexapro. prn ativan for air hunger panic attacks. no signs of respiratory depression with medication. continuous pulse ox at HS DVT prophylaxis : TEDs/SCD Disposition: hospice consulted for family discussion and daughter (healthcare proxy) agreeable. Patient is unable to return from home. She is no longer a rehab candidate given her worsening health and underlying poor prognosis. Anticipate medically ready for discharge to hospice on Monday if/when all parties agree Current Medications Medications (Trade) Dose Ordered Sig/Sung Route PRN Reason Start Time Stop Time Status Last Admin Dose Admin Acetaminophen (Tylenol Tab) 650 mg Q6HP PRN PO PAIN / FEVER 03/09/19 13:15 03/10/19 01:27 DC 03/09/19 14:28 Albuterol Sulfate (Proventil Neb) 2.5 mg RQ4H NEB 03/13/19 12:00 03/16/19 11:27 Albuterol Sulfate (Proventil Neb) 2.5 mg RQ4H PRN NEB wheeze 03/12/19 08:45 03/12/19 10:12 DC Albuterol/ Ipratropium (Duoneb (Ipr 0.5mg/Alb 2.5mg)) 3 ml Q20M PRN NEB SHORTNESS OF BREATH 03/07/19 08:30 03/07/19 09:48 DC 03/07/19 09:47 Albuterol/ Ipratropium (Duoneb (Ipr 0.5mg/Alb 2.5mg)) 3 ml Q2HP PRN NEB SOB/WHEEZING 03/07/19 22:45 03/13/19 11:25 DC 03/13/19 11:45 Amitriptyline HCl (Elavil) 10 mg QHS PRN PO INSOMNIA 03/07/19 12:00 Benzonatate (Tessalon Perles) 100 mg Q8H PO 03/13/19 22:00 03/16/19 14:02 Benzonatate (Tessalon Perles) 100 mg TIDP PRN PO COUGH 03/08/19 02:30 03/13/19 18:34 DC 03/12/19 18:13 Budesonide (Pulmicort) 0.5 mg RBID INH 03/14/19 09:00 03/16/19 07:02 Calcium Carbonate (Tums) 1,000 mg Q4HP PRN PO HEARTBURN 03/09/19 10:45 03/16/19 10:49 Cefepime HCl 1 gm/ Dextrose 50 ml @ 100 mls/hr Q24H IV 03/12/19 14:00 03/16/19 14:02 Ceftriaxone Sodium 1 gm/ Dextrose 50 ml @ 100 mls/hr Q24H IV 03/07/19 12:00 03/08/19 23:22 DC 03/08/19 13:21 Dextrose (Dextrose 50%) 25 ml ASDIRECTED PRN IV SEE LABEL COMMENTS 03/07/19 12:00 Escitalopram Oxalate (Lexapro) 20 mg DAILY PO 03/07/19 09:00 03/16/19 09:41 Ferrous Sulfate (Ferrous Sulfate) 325 mg BID PO 03/07/19 09:00 03/16/19 09:45 Furosemide (LASIX injection) 60 mg BID IV 03/09/19 21:00 03/09/19 21:00 DC Furosemide (LASIX injection) 60 mg BID IV 03/10/19 09:00 03/10/19 09:00 DC Glucagon (Glucagon) 1 mg ASDIRECTED PRN SC SEE LABEL COMMENTS 03/07/19 12:00 Glucose (Glucose) 16 GM ASDIRECTED PRN PO SEE LABEL COMMENTS 03/07/19 12:00 Guaifenesin (Mucinex Tab Er) 1,200 mg BID PO 03/13/19 09:00 03/16/19 09:47 Home Med (Med Rec Complete!) ASDIRECTED XX 03/07/19 11:15 03/07/19 11:15 DC Insulin Detemir (Levemir Insulin) 40 units BID SC 03/07/19 09:00 03/07/19 18:58 DC 03/07/19 12:50 Insulin Detemir (Levemir Insulin) 40 units BID SC 03/10/19 18:00 03/11/19 07:12 DC 03/10/19 19:08 Insulin Detemir (Levemir Insulin) 80 units BID SC 03/07/19 21:00 03/10/19 17:32 DC 03/09/19 08:12 Insulin Detemir (Levemir Insulin) 80 units BID SC 03/11/19 09:00 03/14/19 03:41 DC 03/13/19 20:47 Insulin Detemir (Levemir Insulin) 90 units BID SC 03/14/19 09:00 Future hold 03/16/19 10:20 Insulin Human Lispro (HumaLOG INSULIN) 30 units STAT STAT SC 03/07/19 18:55 03/07/19 18:58 DC 03/07/19 19:51 Insulin Human Lispro (HumaLOG INSULIN) SEE PROTOCOL TABLE AC MA 03/07/19 12:00 03/16/19 12:27 Insulin Human Lispro (HumaLOG INSULIN) SEE PROTOCOL TABLE QHS MA 03/07/19 21:00 03/15/19 20:46 Lactulose (Cephulac) 15 ml DAILY PO 03/07/19 09:00 03/13/19 08:29 Lorazepam (Ativan) 0.25 mg STAT STAT IV 03/14/19 02:54 03/14/19 02:56 DC 03/14/19 03:36 Lorazepam (Ativan) 0.5 mg Q4HP PRN IV anxiety/air hunger 03/14/19 18:00 03/15/19 23:02 Methylprednisolone (SOLU medrol) 40 mg DAILY IV 03/13/19 09:00 03/13/19 09:00 DC 03/13/19 08:27 Methylprednisolone (SOLU medrol) 40 mg Q12H IV 03/10/19 11:00 03/12/19 12:54 DC 03/12/19 11:56 Midodrine (Proamatine) 5 mg BID@0800,1600 PO 03/07/19 16:00 03/13/19 08:46 DC 03/13/19 08:29 Miscellaneous (Unresolved Clarification Entry) SEE LABEL COMMENTS DAILY XX 03/16/19 09:00 03/16/19 12:03 DC Morphine Sulfate (Morphine Sulfate Inj) 1 mg Q4HP PRN IV air hunger 03/14/19 18:00 Ondansetron HCl (ZOFRAN INJection) 4 mg Q6HP PRN IV NAUSEA OR VOMITING 03/10/19 06:15 03/13/19 22:53 Oxycodone HCl (Roxicodone, Oxyir) 5 mg Q8HP PRN PO PAIN 03/10/19 01:30 03/16/19 10:13 Pantoprazole Sodium (Protonix) 40 mg DAILY PO 03/07/19 09:00 03/16/19 09:45 Piperacillin Sod/ Tazobactam Sod 3.375 gm/Dextrose 50 ml @ 50 mls/hr Q6H IV 03/09/19 00:00 03/12/19 12:54 DC 03/12/19 11:55 Prednisone (Deltasone) 40 mg DAILY PO 03/15/19 09:00 03/16/19 09:44 Rifaximin (Xifaxan) 550 mg BID PO 03/07/19 09:00 03/16/19 09:47 Ropinirole HCl (Requip) 2 mg BID PRN PO RESTLESSNESS 03/07/19 12:00 03/10/19 17:55 DC 03/09/19 22:44 Ropinirole HCl (Requip) 2 mg BID PRN PO RESTLESSNESS 03/10/19 18:00 03/15/19 20:44 Sodium Chloride 750 ml @ 50 mls/hr Q15H IV 03/07/19 19:00 03/07/19 22:43 DC 03/07/19 19:54 Sodium Chloride (Saline Lock Flush) 2 ml ASDIRECTED PRN IV SEE LABEL COMMENTS 03/11/19 08:30 Sodium Chloride (Saline Lock Flush) 2 ml SLF IV 03/11/19 14:00 03/16/19 14:03 Spironolactone (Aldactone) 25 mg BID@09,17 PO 03/14/19 09:00 03/16/19 09:40 VS,Fishbone, I+O VS, Fishbone, I+O Vital Signs Date Time Temp Pulse Resp B/P (MAP) Pulse Ox O2 Delivery O2 Flow Rate FiO2 03/16/19 10:51 111 22 97 8.0 03/16/19 10:13 178/77 03/16/19 08:00 97.9 03/16/19 07:00 BIPAP/CPAP 03/10/19 08:15 30 I&O- Last 24 Hours up to 6 AM 03/16/19 06:00 Intake Total 1220 ml Output Total 1050 ml Balance 170 ml NADIA HUGO DO Mar 16, 2019 11:42
[2019-03-16] MEDS: LORazepam 2 MG/ML VIAL (J2060) IV PRN ×2 (16:20→22:53)
[2019-03-16] MEDS: PROPRANOLOL 10 MG TAB PO SCH (21:21)
[2019-03-16] MEDS: AMITRIPTYLINE 10 MG TAB PO SCH (21:21)
[2019-03-16] MEDS: rOPINIRole 2MG TAB PO PRN (21:42)
[2019-03-16] MEDS: MORPHINE 4 MG/ML 1ML VIAL/SYRINGE (J2270) IV PRN (22:53)
[2019-03-17 04:00] VITALS: BP 145/75
[2019-03-17] MEDS: ALBUTEROL SULFATE 2.5 MG/0.5 ML INH NEB SOLN NEB SCH ×5 (04:42→19:48)
[2019-03-17] MEDS: BENZONATATE 100 MG CAP PO SCH ×3 (06:00→21:02)
[2019-03-17 06:05] LABS: HEMATOCRIT 33.9 % (36.0-47.0); MEAN CORPUSCULAR HEMOGLOBIN 28.7 pg (27.0-33.0); MEAN CORPUSCULAR HGB CONC 29.5 g/dl (32.0-36.5); MEAN CORPUSCULAR VOLUME 97.4 fl (80.0-96.0); PLATELET COUNT, AUTOMATED 108 10^3/uL (150-450); RED BLOOD COUNT 3.48 10^6/uL (4.00-5.40); WHITE BLOOD COUNT 7.4 10^3/uL (4.0-10.0)
[2019-03-17 06:32] LABS: ALBUMIN 2.8 GM/DL (3.2-5.2); BILIRUBIN,TOTAL 0.9 MG/DL (0.2-1.0); CREATININE FOR GFR 1.38 MG/DL (0.55-1.30); POTASSIUM SERUM 4.6 MEQ/L (3.5-5.1); TOTAL PROTEIN 7.2 GM/DL (6.4-8.2)
[2019-03-17] MEDS: SLF 3 ML SYR IV SCH ×3 (06:58→22:00)
[2019-03-17] MEDS: BUDESONIDE 0.5 MG/2 ML INHALATION SUSPENSION INH SCH ×2 (07:17→19:48)
[2019-03-17 08:00] VITALS: BP 182/98
[2019-03-17] MEDS: predniSONE 20 MG TAB PO SCH (08:32)
[2019-03-17] MEDS: guaiFENesin ER 600 MG TAB PO SCH ×2 (08:33→21:02)
[2019-03-17] MEDS: PROPRANOLOL 10 MG TAB PO SCH ×2 (08:33→22:27)
[2019-03-17] MEDS: PANTOPRAZOLE 40MG TAB (PROTONIX) PO SCH (08:33)
[2019-03-17] MEDS: rifAXIMin 550 MG TAB (XIFAXAN) PO SCH ×2 (08:33→22:28)
[2019-03-17] MEDS: SPIRONOLACTONE 25 MG TAB PO SCH ×2 (08:34→17:02)
[2019-03-17] MEDS: ESCITALOPRAM OXALATE 10 MG TAB (LEXAPRO) PO SCH (08:34)
[2019-03-17] MEDS: HumaLOG INSULIN (NovoLOG) PER UNIT SC SCH ×4 (08:35→20:58)
[2019-03-17] MEDS: FERROUS SULFATE 325MG TAB PO SCH (08:36)
[2019-03-17] MEDS: LEVEMIR (INSULIN DETEMIR) 1 UNITS/0.01ML SC SCH ×2 (08:36→20:59)
[2019-03-17] MEDS: LACTULOSE 20 GM/30 ML SYRUP UD PO SCH (09:00)
[2019-03-17 12:00] VITALS: BP 144/70
[2019-03-17] MEDS ORDERED: LORazepam 0.5 MG TAB PO PRN (12:30)
--- NOTE | 2019-03-17 12:49 | IPNPDOC ---
Text Note Date of Service The patient was seen on 03/17/19. NOTE s:patient states had a more restful night with use of amitryptline. Woke up 0500 with airhunger, panic, diaphoresis while on CPAP. She is currently on 8 liter high flow oxygen. Patient and daughter states they have decided [facility]/hospice. O: Vitals as below General: mildly tachypenic at 24 using abdomen accessory muscles, AAOx3 HRRR LCTA with no airmovement left side, right with rales abdomen: soft, distended, NABS Ext 1+ edema A/P: Acute hypoxic respiratory failure with Shortness of Breath with Right Sided Pleural Effusion from ascites and left white out (mucus plug with hydrothorax suspected) s/p Thoracentesis on 03/08 with ~300 cc's of removal, completed 4 days with a combination of albumin and IV Lasix continue scheduled nebs, guiafensen; IS/PEP, steroid taper Patient refusing pulm consult. Case discussed with Dr Gordillo will see patient /daughter present to see if she may benefit from pleurx if on hospice for bedside draining PATIENT HAS DECIDED ON COMFORT MEASURES ONLY AND HOSPICE Will give 1 dose IV lasix today for comfort and ease of breathing. If IV access falls out, will not re-insert KENDRICK superimposed on CKD stage III Baseline Creatinine ~1.2 (1.92 on admission) Possibly due to intravascular volume depletion - doubt hepatorenal syndrome as creatine was improving Creat increased after IV lasix given and is now starting to trend down - check BMP in AM End Stage Liver Disease with Cirrhosis associated with HICKS MELD Score 19--6% Mortality in 3 months; patient and family considering hospice, palliative care and NH placement; patient is aware she will not return home. She does not want hospice or comfort care at this time. Case discussed with Dr Gordillo will see patient /daughter present to see if she may benefit from pleurx paracentesis cathetar for palliative treatment , if she chooses hospice (it can then be drained daily to offer comfort and to avoid recurrent right hydrothorax) Hepatic encephalopathy - NOT PRESENT DURING CURRENT ADMISSION. - RESOLVED Patient's ammonia level has been within normal limits--- she remains on rifaximin - she is refusing lactulose. There was some consideration and scheduled outpatient follow-up regarding a TIPS procedure with interventional radiology. However, given the patient's general intolerance of lactulose and worsening liver disease daughter states she is not candidate for a TIPS procedure.Case discussed with Dr Gordillo will see patient /daughter present to see if she may benefit from pleurx Lactic Acidosis of Multifactorial Etiology - RESOLVED Improved following Albumin infusion and gentle IVF hydration Diabetes mellitus Continue insulin regimen as ordered Chronic Hypotension - RESOLVED with IV albumin and midodrine. hold orders for midodrine placed. Iron deficiency anemia - continue iron replacement GERD - Continue PPI Restless leg syndrome - Continue ropinirole Anxiety/depression - patient has not used amitryptline since admission, will reorder; continue with lexapro. prn ativan for air hunger panic attacks. no signs of respiratory depression with medication. continuous pulse ox at HS DVT prophylaxis : TEDs/SCD Disposition: hospice consulted for family discussion and daughter (healthcare proxy) agreeable. Patient is unable to return from home. She is no longer a rehab candidate given her worsening health and underlying poor prognosis. Patient is now [facility] and anticipate discharge to hospice on Monday if available. VS,Niko, I+O VS, Edue, I+O Laboratory Tests 03/17/19 05:33 Red Blood Count 3.48 L, Mean Corpuscular Volume 97.4 H, Mean Corpuscular Hemoglobin 28.7, Mean Corpuscular Hemoglobin Concent 29.5 L, Red Cell Distribution Width 16.5 H, Calcium Level 9.0, Aspartate Amino Transf (AST/SGOT) 28, Alanine Aminotransferase (ALT/SGPT) 54, Alkaline Phosphatase 249 H, Total Bilirubin 0.9, Total Protein 7.2, Albumin 2.8 L Vital Signs Date Time Temp Pulse Resp B/P (MAP) Pulse Ox O2 Delivery O2 Flow Rate FiO2 03/17/19 12:06 Nasal Cannula 10.0 03/17/19 12:00 97.2 69 18 144/70 (94) 98 I&O- Last 24 Hours up to 6 AM 03/17/19 06:00 Intake Total 940 ml Output Total 1875 ml Balance -935 ml NADIA HUGO DO Mar 17, 2019 12:49
[2019-03-17] MEDS ORDERED: FUROSEMIDE 40 MG/4 ML VIAL (J1940) IV ONE (13:00)
[2019-03-17] MEDS ORDERED: ONDANSETRON 4 MG ORAL DISINTEGRATING TAB (Q0162 PER 1MG) PO PRN (13:00)
[2019-03-17] MEDS: oxyCODONE 5MG TAB PO PRN ×2 (13:09→22:28)
[2019-03-17] MEDS: CALCIUM CARBONATE 500 MG CHEW U/D PO PRN (19:45)
[2019-03-17] MEDS: rOPINIRole 2MG TAB PO PRN (22:27)
[2019-03-17] MEDS: AMITRIPTYLINE 10 MG TAB PO SCH (22:28)
[2019-03-18] MEDS: ALBUTEROL SULFATE 2.5 MG/0.5 ML INH NEB SOLN NEB SCH ×6 (01:07→20:32)
[2019-03-18] MEDS: SLF 3 ML SYR IV SCH ×3 (05:22→21:30)
[2019-03-18] MEDS: MORPHINE 4 MG/ML 1ML VIAL/SYRINGE (J2270) IV PRN (06:51)
[2019-03-18] MEDS: BENZONATATE 100 MG CAP PO SCH ×3 (07:11→21:30)
[2019-03-18] MEDS: HumaLOG INSULIN (NovoLOG) PER UNIT SC SCH ×4 (07:30→21:36)
[2019-03-18 08:00] VITALS: BP 165/72
[2019-03-18] MEDS: BUDESONIDE 0.5 MG/2 ML INHALATION SUSPENSION INH SCH ×3 (08:00→20:32)
[2019-03-18] MEDS: guaiFENesin ER 600 MG TAB PO SCH ×2 (08:37→21:30)
[2019-03-18] MEDS: ESCITALOPRAM OXALATE 10 MG TAB (LEXAPRO) PO SCH (08:37)
[2019-03-18] MEDS: rifAXIMin 550 MG TAB (XIFAXAN) PO SCH (08:37)
[2019-03-18] MEDS: SPIRONOLACTONE 25 MG TAB PO SCH ×2 (08:37→17:41)
[2019-03-18] MEDS: PANTOPRAZOLE 40MG TAB (PROTONIX) PO SCH (08:37)
[2019-03-18] MEDS ORDERED: predniSONE 20 MG TAB PO SCH (09:00)
[2019-03-18] MEDS: LEVEMIR (INSULIN DETEMIR) 1 UNITS/0.01ML SC SCH (09:00)
[2019-03-18] MEDS: PROPRANOLOL 10 MG TAB PO SCH ×2 (09:00→21:28)
--- NOTE | 2019-03-18 12:44 | IPNPDOC ---
Text Note Date of Service The patient was seen on 03/18/19. NOTE S: patient states good night sleep last night. states mouth pain and irritation from thrush. no CP; mild SOB and currently on 8 liter oxygen O: Vitals as below General: AAOx3, NAD HEENT: buccal mucosa and tongue with white coating HRRR LCTA with no airmovement on left, decreased breathsound on right Ext no edema Abdomen obese, soft , distended, non tender A/P: Endstage liver disease - on hospice - possible d/c today Oral thrush - nystatin swish and swallow VS,Fishbone, I+O VS, Fishbone, I+O Vital Signs Date Time Temp Pulse Resp B/P (MAP) Pulse Ox O2 Delivery O2 Flow Rate FiO2 03/18/19 08:00 97.2 70 24 165/72 (103) 97 8.0 03/17/19 12:06 Nasal Cannula I&O- Last 24 Hours up to 6 AM 03/18/19 06:00 Intake Total 420 ml Output Total 500 ml Balance -80 ml NADIA HUGO DO Mar 18, 2019 12:44
[2019-03-18] MEDS: MORPHINE 10MG/0.5ML ORAL CONCENTRATE SOLUTION U/D SL PRN (12:45)
[2019-03-18] MEDS: NYSTATIN 500,000 U/5 ML SUSP UDC PO SCH ×3 (14:14→21:27)
[2019-03-18] MEDS ORDERED: ATIV1TAB10 PO (19:48)
[2019-03-18] MEDS ORDERED: BENZ-18 PO (19:48)
[2019-03-18] MEDS ORDERED: Morphine Sulfate Oral Conc. SL (19:48)
[2019-03-18] MEDS ORDERED: MUCI600T31 PO (19:48)
[2019-03-18] MEDS ORDERED: PROP10TA56 PO (19:48)
[2019-03-18] MEDS ORDERED: BUDE0.5S6 INH (19:48)
[2019-03-18] MEDS ORDERED: ONDA4TAB6 PO (19:48)
[2019-03-18] MEDS ORDERED: LANTINJ4 SC (19:48)
[2019-03-18] MEDS ORDERED: ALDA25TA2 PO (19:48)
[2019-03-18] MEDS ORDERED: ALB2.5NEB NEB (19:48)
[2019-03-18] MEDS ORDERED: NYST50SS PO (19:48)
--- NOTE | 2019-03-18 20:03 | DS.PDOC ---
Discharge Summary General Date of Admission Mar 07, 2019 at 11:00 Date of Discharge 03/19/19 Attending Physician: NADIA HUGO DO Discharge Summary PROCEDURES PERFORMED DURING STAY: s/p Thoracentesis on 03/08 with ~300 cc's of removal, paracentesis ADMITTING DIAGNOSES: 1. . DISCHARGE DIAGNOSES: Acute hypoxic respiratory failure with Shortness of Breath with Right Sided Pleural Effusion from ascites and left white out (mucus plug with hydrothorax suspected) KENDRICK superimposed on CKD stage III End Stage Liver Disease with Cirrhosis associated with HICKS - MELD Score 19--6% Mortality in 3 months; Hepatic encephalopathy - NOT PRESENT DURING CURRENT ADMISSION. 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 HISTORY OF PRESENT ILLNESS: . HOSPITAL COURSE: Patient admitted and continued to progressively worsen with respiratory status. She was transferred to ICU during a hypoxic episode and seen by DR Collins, diagnosis with hydrothorax and possible infection. She was placed on steroids and antibiotics. SHe continued to worsen with intermittent episodes of anxiety, air hunger and refused further pulmonary consult. SHe had repeat CXR done and demonstrated complete white out of left lung. Thoracentesis and paracentesis performed without improvement. Patient decided on hospi ce/comfort care. steroids were tapered off. she developped thrush prior to discharge and treated with nystatin swish and swallow. She is being continued on propranolol, PPI for her recent GI bleed from varices. She is refusing lactulose. She is tolerating prn ativan and morphine for her intermittent air/hunger anxiety episodes. She is being discharge in stable condition with p oor prognosis to hospice house. DISCHARGE MEDICATIONS: Please see below. ALLERGIES: Please see below. PHYSICAL EXAMINATION ON DISCHARGE: VITAL SIGNS: Please see below. General: using abdomen muscle to breath but appear comfortable. speaking short sentences, joking with family HRRR Lungs - no breath sounds left, diminished on right with rales Abdomen soft , distended NT LABORATORY DATA: Please see below. ACTIVITY: as tolerated DIET: as tolerated DISCHARGE PLAN: discharge to hospice DISPOSITION: . DISCHARGE INSTRUCTIONS: follow up with hospice provider currently on 8 liter of oxygen DISCHARGE CONDITION: stable TIME SPENT ON DISCHARGE: 55 minutes. Vital Signs/I&Os Vital Signs Date Time Temp Pulse Resp B/P (MAP) Pulse Ox O2 Delivery O2 Flow Rate FiO2 03/18/19 08:00 97.2 70 24 165/72 (103) 97 8.0 03/17/19 12:06 Nasal Cannula I&O- Last 24 Hours up to 6 AM 03/18/19 06:00 Intake Total 420 ml Output Total 500 ml Balance -80 ml Laboratory Data Labs 24H Laboratory Tests 2 03/17/19 20:44: Bedside Glucose (Misc Panel) 224H 03/18/19 07:28: Bedside Glucose (Misc Panel) 109 03/18/19 12:01: Bedside Glucose (Misc Panel) 156H 03/18/19 17:01: Bedside Glucose (Misc Panel) 340H FSBS Laboratory Tests Test 03/17/19 20:44 03/18/19 07:28 03/18/19 12:01 03/18/19 17:01 Range/Units Bedside Glucose (Misc Panel) 224 109 156 340 80-115 MG/DL Microbiology Microbiology 03/09/19 Blood Culture - Final, Complete NO GROWTH AFTER 5 DAYS 03/14/19 Fungal Smear, Received Pending 03/14/19 Fungal Culture, Received Pending 03/14/19 Gram Stain - Final, Complete 03/14/19 Anaerobic Culture - Final, Complete 03/14/19 Body Fluid Culture - Final, Complete 03/08/19 Acid Fast Stain, Received Pending 03/08/19 Mycobacterial Culture, Received Pending 03/08/19 Fungal Smear, Received Pending 03/08/19 Fungal Culture, Received Pending 03/08/19 Gram Stain - Final, Complete 03/08/19 Body Fluid Culture - Final, Complete Discharge Medications Scheduled Albuterol Sulfate (Albuterol Sulfate) 2.5 Mg/0.5 Ml Vial.neb, 2.5 MG NEB RQ4H Benzonatate (Benzonatate) 100 Mg Capsule, 100 MG PO Q8H Budesonide (Budesonide) 0.5 Mg/2 Ml Ampul.neb, 0.5 MG INH RBID Calcium Carbonate/Vitamin D3 (Calcium 500-Vit D3 600 Tablet) 1 Tab Tab, 1 TAB PO BID, (Reported) Escitalopram Oxalate (Escitalopram Oxalate) 20 Mg Tab, 20 MG PO DAILY, (Reported) Esomeprazole Magnesium (Nexium) 40 Mg Cap, 40 MG PO DAILY, (Reported) Ferrous Sulfate (Ferrous Sulfate) 325 Mg Tab, 325 MG PO BID, (Reported) Furosemide (Lasix) 40 Mg Tab, 40 MG PO BID, (Reported) Guaifenesin (Mucinex) 600 Mg Tab.er.12h, 1,200 MG PO BID Insulin Glargine,Hum.rec.anlog (Lantus Solostar) 100 Unit/1 Ml Insuln.pen, 80 UNITS SC BID Insulin Human Lispro (Novolog) 100 U/Ml Inj, 1 DOSE SC ACHS, (Reported) PER SLIDING SCALE Lactulose (Lactulose) 10 Gm/15 Ml Solution, 15 ML PO DAILY, (Reported) Meclizine HCl (Meclizine HCl) 25 Mg Tab, 25 MG PO BID, (Reported) Midodrine HCl (Midodrine HCl) 5 Mg Tablet, 5 MG PO BID, (Reported) 0800, 1600 Nystatin (Nystatin Oral Susp) 100,000 Unit/1 Ml Oral.susp, 10 ML PO QID Pantoprazole Sodium (Pantoprazole Sodium) 40 Mg Tablet.dr, 40 MG PO BID, (Reported) Propranolol HCl (Propranolol HCl) 10 Mg Tablet, 10 MG PO BID Rifaximin (Xifaxan) 550 Mg Tablet, 550 MG PO BID, (Reported) Spironolactone (Spironolactone) 100 Mg Tablet, 100 MG PO BID, (Reported) Spironolactone (Aldactone) 25 Mg Tablet, 25 MG PO BID@09,17 Scheduled PRN Albuterol Sulfate (Proventil Hfa) 6.7 Gm Hfa.aer.ad, 2 PUFF INH QID PRN for SHORTNESS OF BREATH, (Reported) Amitriptyline HCl (Amitriptyline HCl) 10 Mg Tablet, 10 MG PO QHS PRN for INSOMNIA, (Reported) Guaifenesin (Guaifenesin) 100 Mg/5 Ml Liquid, 100 MG PO Q4H PRN for COUGH, (Reported) Lorazepam (Ativan) 0.5 Mg Tablet, 0.5 MG PO Q2HP PRN for air hunger,anxiety HOSPICE - ENDSTAGE LUNG AND LIVER DISEASE Ondansetron (Ondansetron Odt) 4 Mg Tab.rapdis, 4 MG PO Q4HP PRN for NAUSEA OR VOMITING [place] HCl (Ropinirole HCl) 2 Mg Tablet, 2 MG PO BID PRN for RESTLESSNESS, (Reported) [Morphine Sulfate Oral Conc.] 10 MG/0.5 ML CONC, 3 MG SL Q2HP PRN for air hunger/pain hospice - endstage lung and liver disease Allergies Coded Allergies: TAPE (Verified Allergy, Mild, 03/07/19) acetaminophen (Verified Adverse Reaction, Intermediate, LIVER PROBLEMS, 03/07/19) candesartan (Verified Adverse Reaction, Intermediate, CHEST PAIN, 03/07/19) hydrochlorothiazide (Verified Adverse Reaction, Intermediate, CHEST PAIN, 03/07/19) ibuprofen (Verified Adverse Reaction, Intermediate, LIVER PROBLEMS, 03/07/19) NADIA HUGO DO Mar 18, 2019 20:03
[2019-03-18] MEDS ORDERED: MORP10SO PO (20:21)
[2019-03-18] MEDS: rOPINIRole 2MG TAB PO PRN (21:27)
[2019-03-18] MEDS: AMITRIPTYLINE 10 MG TAB PO SCH (21:29)
[2019-03-19] MEDS: ALBUTEROL SULFATE 2.5 MG/0.5 ML INH NEB SOLN NEB SCH ×3 (04:00→07:55)
[2019-03-19] MEDS: BENZONATATE 100 MG CAP PO SCH (05:30)
[2019-03-19] MEDS: SLF 3 ML SYR IV SCH (05:30)
[2019-03-19] MEDS: BUDESONIDE 0.5 MG/2 ML INHALATION SUSPENSION INH SCH (07:55)
[2019-03-19] MEDS: HumaLOG INSULIN (NovoLOG) PER UNIT SC SCH (08:25)
[2019-03-19] MEDS: NYSTATIN 500,000 U/5 ML SUSP UDC PO SCH (08:25)
[2019-03-19 08:26] VITALS: BP 160/74
[2019-03-19] MEDS: PROPRANOLOL 10 MG TAB PO SCH (08:26)
[2019-03-19] MEDS: ESCITALOPRAM OXALATE 10 MG TAB (LEXAPRO) PO SCH (08:26)
[2019-03-19] MEDS: SPIRONOLACTONE 25 MG TAB PO SCH (08:26)
[2019-03-19] MEDS: guaiFENesin ER 600 MG TAB PO SCH (08:26)
[2019-03-19] MEDS: PANTOPRAZOLE 40MG TAB (PROTONIX) PO SCH (08:27)
[2019-03-19] MEDS: MORPHINE 10MG/0.5ML ORAL CONCENTRATE SOLUTION U/D SL PRN (09:22)
[2019-03-19] MEDS ORDERED: LORA0.5T11 PO (14:00)
[2019-03-19] MEDS ORDERED: HYOS125TA PO (14:00)
[2019-03-19] MEDS ORDERED: MORP20SO3 PO (14:00)
--- NOTE | 2019-03-19 15:26 | IPNPDOC ---
Text Note Date of Service The patient was seen on 03/19/19. NOTE No acute overnight events noted. Discharge was delayed until 03/19/19 due to hospice set up. Please refer to discharge summary on 03/18/19 for extent of the patient's hospitalization. VS,Fishbone, I+O VS, Fishbone, I+O Vital Signs Date Time Temp Pulse Resp B/P (MAP) Pulse Ox O2 Delivery O2 Flow Rate FiO2 03/19/19 09:52 16 03/19/19 08:26 160/74 03/19/19 07:57 Nasal Cannula 8.0 03/18/19 21:28 70 03/18/19 08:00 97.2 97 I&O- Last 24 Hours up to 6 AM 03/19/19 06:00 Intake Total 0 ml Output Total 400 ml Balance -400 ml CONCHA THURMAN MD Mar 19, 2019 15:26
== END 2019-03-19 11:18 | disposition hospice, home (50) | DRG 441 ==
LOC: M ED 06:52 → M ED INP 11:00 → M PCU 14:54 → M ICU 03-08 23:53 → M PCU 03-10 17:49 → M ICU 03-14 03:05 → M PCU 03-16 15:27
PROVIDERS: ADMIT Internal Medicine; ATTEND Family Medicine
PROC: 0W993ZZ Drainage of Right Pleural Cavity, Percutaneous Approach (ICD-10-PCS; principal; 2019-03-08 18:00)
PROC: 0W9B3ZZ Drainage of Left Pleural Cavity, Percutaneous Approach (ICD-10-PCS; 2019-03-14)
DX: K75.81 Nonalcoholic steatohepatitis (NASH) (principal); J96.01 Acute respiratory failure with hypoxia; N17.9 Acute kidney failure, unspecified; E87.2 Acidosis; R18.8 Other ascites; B37.0 Candidal stomatitis; I85.10 Secondary esophageal varices without bleeding; J90 Pleural effusion, not elsewhere classified; J94.8 Other specified pleural conditions; K21.9 Gastro-esophageal reflux disease without esophagitis; I95.9 Hypotension, unspecified; D50.9 Iron deficiency anemia, unspecified; E11.65 Type 2 diabetes mellitus with hyperglycemia; D69.6 Thrombocytopenia, unspecified; K72.90 Hepatic failure, unspecified without coma; G47.33 Obstructive sleep apnea (adult) (pediatric); E78.5 Hyperlipidemia, unspecified; E66.01 Morbid (severe) obesity due to excess calories; N18.3 Chronic kidney disease, stage 3 (moderate); Z79.4 Long term (current) use of insulin; G25.81 Restless legs syndrome; F41.9 Anxiety disorder, unspecified; F32.9 Major depressive disorder, single episode, unspecified; Z51.5 Encounter for palliative care; Z79.899 Other long term (current) drug therapy; Z88.8 Allergy status to other drugs, medicaments and biological substances; K74.60 Unspecified cirrhosis of liver; Z66 Do not resuscitate